=== PATIENT | male | born 1985 | race Caucasian/White ===

== ENCOUNTER 2020-06-06 15:24 | Emergency (ER) | payer MEDICAID, SELFPAY ==
[2020-06-06 15:42] VITALS: BP 119/79; PULSE 89; RESP 16; TEMP 36.8; O2SAT 97; BMI 49.1
--- NOTE | 2020-06-06 17:13 | ED_ITS ---
HPI - Neuro Symptoms/Deficit General Chief Complaint: Neuro Symptoms/Deficit Stated Complaint: withdraw symptoms Time Seen by Provider: 06/06/20 16:28 Source: patient Mode of arrival: ambulatory History of Present Illness HPI Narrative: patient states about 30 hours ago took some heroin. Starting to withdrawal this morning so he took some Suboxone. Dates nausea vomiting shaking general malaise. No fevers or chills. Patient states does not want to be on Suboxone long-term however is feeling not well and came into the ER. Denies falls denies blood in denies chest pain or shortness of breath Onset (ago): hour(s) ( 3) Associated symptoms: malaise and nausea/vomiting Related Data Previous Rx's Medication Instructions Recorded clonidine HCl 0.1 mg PO Q8H #10 tab 06/06/20 ondansetron 4 mg PO Q8H PRN 5 Days #15 tab 06/06/20 Allergies Allergy/AdvReac Type Severity Reaction Status Date / Time mayonnaise [MAYONNAISE] Allergy Intermediate THROAT AND Verified 06/06/20 16:05 TONGUE ITCH quetiapine [From SEROQUEL] Allergy Intermediate DYSTONIA Verified 06/06/20 16:05 cat dander [CATS] Allergy Unknown WATERY Verified 06/06/20 16:05 EYES, SNEEZING dog dander [DOG] Allergy Unknown UNKNOWN Verified 06/06/20 16:05 paroxetine [From PAXIL] Allergy Unknown FLU LIKE Verified 06/06/20 16:05 SYMPTOMS penicillin V Allergy Unknown Unknown Verified 06/06/20 16:05 Penicillins [PENICILLINS] Allergy Unknown SWELLING Verified 06/06/20 16:05 SEAFOOD Allergy Severe DIFFICULTY Uncoded 05/21/20 15:30 BREATHING Review of Systems Review of Systems: Constitutional : No Weight loss, No Fever, No Chills, No Night Sweats, No Fatigue, No Malaise ENT/Mouth : No Hearing loss, No Ear Pain, No Nasal Congestion, No Sinus Pain, No Hoarseness, No sore throat, No Rhinorrhea, No Swallowing Difficulty Eyes: No Eye Pain, No Swelling, No Redness, No Foreign Body, No Discharge, No Vision Changes Cardiovascular : No Chest Pain, No SOB, No Dyspnea on Exertion, No Orthopnea, No Edema, No Palpitations Respiratory : No Cough, No Sputum, No Wheezing, No Smoke Exposure, No Dyspnea Gastrointestinal : Positive Nausea, No Vomiting, No Diarrhea, No Constipation, No abdominal Pain, No Hematochezia, No Melena Genitourinary : no irregular bleeding, No Dysuria, No Urinary Frequency, No Hematuria, No Urinary Incontinence, No Urgency, No Flank Pain, No Urinary Flow Changes, No Hesitancy Musculoskeletal : No joint pain, No Myalgias, No Joint Swelling Skin : No Skin Lesions, No rash Neuro : Positve Weakness, No Numbness, No Paresthesias, No Loss of Consciousness, No Dizziness, No Headache Psych : No Anxiety/Panic, No Depression, No SI/HI/AH/VH, No Social Issues, Heme/Lymph: No Bruising, No Bleeding,No Lymphadenopathy Endocrine : No Polyuria, No Polydipsia, No Temperature Intolerance Yes all other systems are reviewed and are negative [facility] Past Medical History Attestation statement: The following information was validated with the patient. Medical History ACL (anterior cruciate ligament) rupture Asthma Hepatitis C Hepatitis C antibody positive in blood Knee cartilage, torn, right Substance abuse withdrawal Social History Social History Advance Directives: No Advance Directives Information Provided: Yes Physical Exam Vital Signs and I&O and Narrative: Vital Signs and I&O: Vital Signs Temp 98.3 F 06/06/20 15:42 Pulse 76 06/06/20 17:22 Resp 16 06/06/20 15:42 BP 126/76 06/06/20 17:22 Pulse Ox 97 06/06/20 15:42 Intake & Output 06/06/20 06/06/20 06/07/20 06:59 18:59 06:59 Weight 160 kg Body Mass Index 49.1 reviewed Const: Other: Appearance: Alert. Oriented X3. No acute distress. Eyes: Pupils equal, round and reactive to light. ENT: Pharynx normal. Neck: Normal inspection. Neck supple. CVS: Normal heart rate and rhythm. Pulses normal. Respiratory: No respiratory distress. Breath sounds normal. Abdomen: Soft and nontender. Skin: Skin warm and dry. Normal skin color. Normal skin turgor. Extremities: No lower extremity edema. No lower extremity edema. Neuro: Oriented X 3. No motor deficit. No sensory deficit. General: cooperative Course Course Hospital Course: we counseled patient regarding to his Suboxone long-term however patient does not want to be on it. Patient wants symptom management. Reevaluation(s) Reevaluation #1: PATIENT WANTS TO LEAVE. Care team did refer him to Suboxone Clinic. Patient does refuse to have Suboxone here. Will give symptomatic treatment. Discharge home not intoxicated has ride home Time: 18:17 Discharge Plan Discharge Clinical Impression: Withdrawal symptoms, drug or narcotic Patient Disposition: Home, Self-Care Instructions: Opioid Withdrawal (ED), Narcotic Withdrawal (ED) Additional Instructions: Thank you for visiting the emergency department today. If your symptoms worsen or do not resolve completely please return to the emergency department immediately or call 911. if he have any questions please call your primary care physician Prescriptions: New clonidine HCl 0.2 mg tablet 0.1 mg PO Q8H Qty: 10 RF: 0 ondansetron 4 mg tablet,disintegrating 4 mg PO Q8H PRN (Reason: nausea and vomiting) 5 Days Qty: 15 RF: 0 Referrals: Molly Ford MD [Primary Care Provider] - 2 days Interventions: ED Discharge Assessment Last Done: 06/06/20 18:27 Discharge Date/Time: 06/06/20 18:27
[2020-06-06] MEDS: 0.9 % Sodium Chloride 1,000 ML 999 ML IVCONT (17:21)
[2020-06-06 17:22] VITALS: BP 126/76; PULSE 76
[2020-06-06] MEDS: cloNIDine HCL 0.2 MG TABLET PO (17:22)
[2020-06-06] MEDS: Ketorolac Tromethamine 30 MG/ML VIAL IM (17:22)
[2020-06-06] MEDS: ondansetron HCL 4 MG/2 ML VIAL IVPUSH (17:22)
--- NOTE | 2020-06-06 17:36 | MHC.CARE ---
CARE team support offered for 34 year old male who presented to ED endorsing withdrawal symptoms after administering suboxone he obtained from a friend. Pt reported that he hadn't used heroin for 24 hrs prior to taking and was in active withdrawal at the time, however pt felt more ill after taking the suboxone and came to the ED for treatment. This pattern chart writer met with pt in ED 18H to discuss his use and hx of MAT/suboxone. Pt reported that he last took suboxone a few months ago and that he has only taken suboxone he brought from others, and has not been connected with an MAT clinic previously. CCC was explained to pt and this pattern chart writer offered to complete a referral for pt, which pt was agreeable to. Pt was provided with information for the clinic including walk-in hrs and phone number. Referral completed on [employer] and ED nurse and provider have been updated.
== END 2020-06-06 18:27 | disposition home or self-care (01) ==
PROVIDERS: Emergency Provider Emergency Medicine; PCP Internal Medicine
DX: F11.23 Opioid dependence with withdrawal (principal); B19.20 Unspecified viral hepatitis C without hepatic coma
CPT/HCPCS: 96361; 96372; 96374; 99283; 99284; J1885; J2405

== ENCOUNTER 2020-07-01 12:34 | Emergency (ER) | payer MEDICAID, SELFPAY ==
[2020-07-01 12:52] VITALS: BP 108/74; PULSE 97; RESP 16; O2SAT 98; BMI 22.2
--- NOTE | 2020-07-01 12:59 | ED.DENTAL ---
HPI - Dental/Oral General Chief complaint: Dental/Oral Stated complaint: dental pain Time Seen by Provider: 07/01/20 12:59 Source: patient Mode of arrival: ambulatory Limitations: no limitations History of Present Illness MD Complaint: tooth pain Teeth map: 1. Decay/ ttp. No induration/ abs Onset (ago): day(s) Severity: moderate Relieving factors: NSAIDs Exacerbating factors: chewing Context: history of dental caries Treatment prior to arrival: none Related Data Previous Rx's Medication Instructions Recorded clonidine HCl 0.1 mg PO Q8H #10 tab 06/06/20 ondansetron 4 mg PO Q8H PRN 5 Days #15 tab 06/06/20 clindamycin HCl 300 mg PO BID 7 Days #14 cap 07/01/20 ibuprofen 800 mg PO Q8H PRN #30 tab 07/01/20 Allergies Allergy/AdvReac Type Severity Reaction Status Date / Time mayonnaise [MAYONNAISE] Allergy Intermediate THROAT AND Verified 06/06/20 16:05 TONGUE ITCH quetiapine [From SEROQUEL] Allergy Intermediate DYSTONIA Verified 06/06/20 16:05 cat dander [CATS] Allergy Unknown WATERY Verified 06/06/20 16:05 EYES, SNEEZING dog dander [DOG] Allergy Unknown UNKNOWN Verified 06/06/20 16:05 paroxetine [From PAXIL] Allergy Unknown FLU LIKE Verified 06/06/20 16:05 SYMPTOMS penicillin V Allergy Unknown Unknown Verified 06/06/20 16:05 Penicillins [PENICILLINS] Allergy Unknown SWELLING Verified 06/06/20 16:05 SEAFOOD Allergy Severe DIFFICULTY Uncoded 05/21/20 15:30 BREATHING Review of Systems Review of Systems: Constitutional: No Weight loss, No Fever, No Chills, No Night Sweats, No Fatigue, No Malaise ENT/Mouth: No Hearing loss, No Ear Pain, No Nasal Congestion, No Sinus Pain, No Hoarseness, No sore throat, No Rhinorrhea, No Swallowing Difficulty Eyes: No Eye Pain, No Swelling, No Redness, No Foreign Body, No Discharge, No Vision Changes Cardiovascular: No Chest Pain, No SOB, No Dyspnea on Exertion, No Orthopnea, No Edema, No Palpitations Respiratory: No Cough, No Sputum, No Wheezing, No Smoke Exposure, No Dyspnea Gastrointestinal: No Nausea, No Vomiting, No Diarrhea, No Constipation, No abdominal Pain, No Hematochezia, No Melena Genitourinary: no irregular bleeding, No Dysuria, No Urinary Frequency, No Hematuria, No Urinary Incontinence, No Urgency, No Flank Pain, No Urinary Flow Changes, No Hesitancy Musculoskeletal: No joint pain, No Myalgias, No Joint Swelling Skin: No Skin Lesions, No rash Neuro: No Weakness, No Numbness, No Paresthesias, No Loss of Consciousness, No Dizziness, No Headache Psych: No Social Issues Heme/Lymph: No Bruising, No Bleeding,No Lymphadenopathy Endocrine: No Polyuria, No Polydipsia, No Temperature Intolerance Yes all other systems are reviewed and are negative [facility] Past Medical History Attestation statement: The following information was validated with the patient. Medical History ACL (anterior cruciate ligament) rupture Asthma Hepatitis C Hepatitis C antibody positive in blood Knee cartilage, torn, right Substance abuse withdrawal Social History Social History Advance Directives: No Advance Directives Information Provided: No Physical Exam Vital Signs: Vital Signs: Vital Signs Pulse Resp BP Pulse Ox 07/01/20 12:52 97 16 108/74 98 Body Mass Index 22.2 reviewed Const: General: cooperative and healthy appearing; No acute distress or intoxicated appearing Nutritional Appearance: average body habitus Orientation/consciousness: patient oriented x3 HENMT: Head: Yes normal to inspection Ears: hearing grossly normal bilaterally Teeth and gingiva: caries and poor dentition Eyes: General: appearance normal, both eyes and all related structures Visual Rahman: normal visual rahman by confrontation Neck: Neck: Yes normal visual inspection and No tender Thyroid: Thyroid normal Chest: Chest palpation & inspection: normal inspection of the chest Resp: Effort & Inspection: normal respiratory effort Cardio: Jugular venous distension: no JVD Skin: General skin exam: no rashes or lesions noted Neuro: General: patient oriented x3 Extrem: General: Yes normal to inspection Discharge Plan Discharge Clinical Impression: Dental caries, Toothache Patient Disposition: Home, Self-Care Instructions: Toothache (ED) Prescriptions: New clindamycin HCl 300 mg capsule 300 mg PO BID 7 Days Qty: 14 RF: 0 ibuprofen 800 mg tablet 800 mg PO Q8H PRN (Reason: pain) Qty: 30 RF: 0 No Action clonidine HCl 0.2 mg tablet 0.1 mg PO Q8H Qty: 10 RF: 0 ondansetron 4 mg tablet,disintegrating 4 mg PO Q8H PRN (Reason: nausea and vomiting) 5 Days Qty: 15 RF: 0 Referrals: Physician,Unknown [Primary Care Provider] - 2 days (Dental - ) Interventions: ED Discharge Assessment Last Done: 07/01/20 13:09 Discharge Date/Time: 07/01/20 13:09
== END 2020-07-01 13:09 | disposition home or self-care (01) ==
LOC: HO.ED 13:06
PROVIDERS: Emergency Provider Emergency Medicine
DX: K02.9 Dental caries, unspecified (principal)
CPT/HCPCS: 99283

== ENCOUNTER 2020-07-27 13:35 | Emergency (ER) | payer MEDICAID, SELFPAY ==
--- NOTE | 2020-07-27 13:38 | ECG_ITS ---
Test Reason : CP Blood Pressure : / mmHG Vent. Rate : 083 BPM Atrial Rate : 083 BPM P-R Int : 162 ms QRS Dur : 072 ms QT Int : 374 ms P-R-T Axes : 064 049 043 degrees QTc Int : 439 ms Normal sinus rhythm Normal ECG When compared with ECG of 04-DEC-2019 23:07, No significant change was found Referred By: Generic ED Physician Electronically Signed By:JENNIFER REGALADO MD
[2020-07-27 14:19] VITALS: BP 114/70; PULSE 87; RESP 15; TEMP 36.8; O2SAT 98; BMI 23.6
[2020-07-27 14:23] VITALS: BP 114/70; PULSE 80; RESP 15; O2SAT 98
--- NOTE | 2020-07-27 14:23 | XR_ITS ---
EXAMINATION: XR CHEST CLINICAL INFORMATION: Chest pain. COMPARISON: None TECHNIQUE: 2 views of the chest were obtained. FINDINGS: No significant abnormality is noted involving the heart, lungs, mediastinum, bony thorax or soft tissues. XR/XR chest 2V IMPRESSION: Unremarkable chest exam.
[2020-07-27 14:35] LABS: MANUAL DIFF FLAG NO
--- NOTE | 2020-07-27 14:39 | ED_ITS ---
HPI - Chest Pain General Chief Complaint: Chest Pain <DUC Manning Last Filed: 07/27/20 14:46> Stated Complaint: CHEST PAIN <DUC Manning Last Filed: 07/27/20 14:46> Time Seen by Provider: 07/27/20 14:07 <Shauna Hanna NP - Last Filed: 07/27/20 14:46> Source: patient <Shauna Hanna NP - Last Filed: 07/27/20 14:46> Mode of arrival: ambulatory <DUC Manning Last Filed: 07/27/20 14:46> Limitations: no limitations <DUC Manning Last Filed: 07/27/20 14:46> History of Present Illness HPI narrative: 35-year-old male with a past medical history of asthma, substance abuse, Hepatitis-C here with intermittent left-sided chest pain x4 days. Patient tells me that the pain occurs at rest and sometimes radiates to his left arm. It is associated with anxiety. Denies any associated shortness of breath, dizziness, nausea, vomiting, diaphoresis. He denies any fevers, chills, cough, body aches. He tells me he last used heroin yesterday. He denies IV drug abuse and only snorts heroin. He was discharged from detox 4 days ago and is currently on a methadone taper. Denies cocaine use. Pain is not worsened with deep breathing or movement or coughing or inspiration or position changes. <Shauna Hanna NP - Last Filed: 07/27/20 14:46> MD complaint: chest discomfort <DUC Manning Last Filed: 07/27/20 14:46> Onset (ago): day(s) <DUC Manning Last Filed: 07/27/20 14:46> Timing of current episode: episodic <DUC Manning Last Filed: 07/27/20 14:46> Onset: during rest <DUC Manning Last Filed: 07/27/20 14:46> Pain location: left chest <DUC Manning Last Filed: 07/27/20 14:46> Pain radiation: left arm <Shauna Hanna NP - Last Filed: 07/27/20 14:46> Severity: mild <Shauna Hanna NP - Last Filed: 07/27/20 14:46> Quality: tightness <Shauna Hanna NP - Last Filed: 07/27/20 14:46> Relieving factors: nothing <Shauna Hanna NP - Last Filed: 07/27/20 14:46> Exacerbating factors: nothing <Shauna Hanna NP - Last Filed: 07/27/20 14:46> Treatment prior to arrival: none <Shauna Hanna NP - Last Filed: 07/27/20 14:46> Related Data Home Medications: Previous Rx's Medication Instructions Recorded clonidine HCl 0.1 mg PO Q8H #10 tab 06/06/20 ondansetron 4 mg PO Q8H PRN 5 Days #15 tab 06/06/20 clindamycin HCl 300 mg PO BID 7 Days #14 cap 07/01/20 ibuprofen 800 mg PO Q8H PRN #30 tab 07/01/20 <Shauna Hanna NP - Last Filed: 07/27/20 14:46> Allergies/Adverse Reactions: Allergies Allergy/AdvReac Type Severity Reaction Status Date / Time mayonnaise [MAYONNAISE] Allergy Intermediate THROAT AND Verified 06/06/20 16:05 TONGUE ITCH quetiapine [From SEROQUEL] Allergy Intermediate DYSTONIA Verified 06/06/20 16:05 cat dander [CATS] Allergy Unknown WATERY Verified 06/06/20 16:05 EYES, SNEEZING dog dander [DOG] Allergy Unknown UNKNOWN Verified 06/06/20 16:05 paroxetine [From PAXIL] Allergy Unknown FLU LIKE Verified 06/06/20 16:05 SYMPTOMS penicillin V Allergy Unknown Unknown Verified 06/06/20 16:05 Penicillins [PENICILLINS] Allergy Unknown SWELLING Verified 06/06/20 16:05 SEAFOOD Allergy Severe DIFFICULTY Uncoded 05/21/20 15:30 BREATHING <Shauna Hanna NP - Last Filed: 07/27/20 14:46> Review of Systems Review of Systems: Yes all other systems are reviewed and are negative <Shauna Hanna NP - Last Filed: 07/27/20 14:46> Constitutional: Constitutional: Reports no additional constitutional complaints, Denies body ache(s), Denies chills, Denies fever(s), Denies headache(s) and Denies weakness <Shauna Hanna NP - Last Filed: 07/27/20 14:46> Eyes: Eyes: Reports no additional eye complaints and Denies change in vision <Shauna Hanna PUBLIC HEALTH SANITARIAN - Last Filed: 07/27/20 14:46> ENT: Reports system reviewed and no additional complaints, except as documented, Denies dizziness, Denies headache(s), Denies nasal congestion, Denies nasal discharge and Denies neck pain <Shauna Hanna NP - Last Filed: 07/27/20 14:46> Cardiovascular: Cardiovascular: Reports no additional cardiovascular complaints, Reports chest pain, Denies leg edema and Denies dyspnea <Shauna Hanna NP - Last Filed: 07/27/20 14:46> Respiratory: Respiratory: Reports no additional respiratory complaints, Denies cough and Denies dyspnea <Shauna Hanna NP - Last Filed: 07/27/20 14:46> Gastrointestinal: Gastrointestinal: Reports no additional gastrointestinal complaints, Denies abdominal pain, Denies diarrhea, Denies nausea and Denies vomiting <Shauna Hanna NP - Last Filed: 07/27/20 14:46> Genitourinary: Genitourinary: Denies urinary incontinence <Shauna Hanna NP - Last Filed: 07/27/20 14:46> Musculoskeletal: Musculoskeletal: Reports no additional musculoskeletal complaints, Denies back pain, Denies arthralgias, Denies joint swelling, Denies neck pain, Denies numbness and Denies tingling <Shauna Hanna NP - Last Filed: 07/27/20 14:46> Integumentary/Breasts: Skin/Breast: Reports system reviewed and no additional complaints, except as docu and Denies rash <Shauna Hanna NP - Last Filed: 07/27/20 14:46> Neurologic: Reports system reviewed and no additional complaints, except as documented, Denies Abnormal speech present, Denies dizziness, Denies headache(s), Denies numbness, Denies tingling and Denies weakness <Shauna Hanna NP - Last Filed: 07/27/20 14:46> [facility] Past Medical History Attestation statement: The following information was validated with the patient. <Shauna Hanna NP - Last Filed: 07/27/20 14:46> Source: obtained from family and nursing notes reviewed <Shauna Hanna NP - Last Filed: 07/27/20 14:46> Medical History: Medical History ACL (anterior cruciate ligament) rupture Asthma Hepatitis C Hepatitis C antibody positive in blood Knee cartilage, torn, right Substance abuse withdrawal <Shauna Hanna NP - Last Filed: 07/27/20 14:46> Social History Social History: Social History Alcohol intake: never Smoking Status: Current every day smoker Use of substances other than those prescribed or required for medical reasons: Yes Substance Use Type: Heroin Advance Directives: No Advance Directives Information Provided: No <Shauna Hanna NP - Last Filed: 07/27/20 14:46> Physical Exam Vital Signs: Vital Signs: Last Vital Signs Temp 98.3 F 07/27/20 14:19 Pulse 80 07/27/20 14:23 Resp 15 07/27/20 14:23 BP 114/70 07/27/20 14:23 Pulse Ox 98 07/27/20 14:23 Body Mass Index 23.6 <Shauna Hanna NP - Last Filed: 07/27/20 14:46> Vital Signs: Last Vital Signs Temp 98.3 F 07/27/20 14:19 Pulse 80 07/27/20 14:23 Resp 15 07/27/20 14:23 BP 114/70 07/27/20 14:23 Pulse Ox 98 07/27/20 14:23 Body Mass Index 23.6 <Jeronimo Potts MD - Last Filed: 07/27/20 15:21> Const: General: cooperative, healthy appearing, comfortable and no acute distress <Shauna Hanna NP - Last Filed: 07/27/20 14:46> Orientation/consciousness: patient oriented x3 <Shauna Hanna NP - Last F iled: 07/27/20 14:46> Limitations: no limitations <Shauna Hanna NP - Last Filed: 07/27/20 14:46> HENMT: Head: Yes normal to inspection <Shauna Hanna NP - Last Filed: 07/27/20 14:46> Ears: hearing grossly normal bilaterally <Shauna Hanna NP - Last Filed: 07/27/20 14:46> General nose exam: Normal external nose present <Shauna Hanna NP - Last Filed: 07/27/20 14:46> Face and sinus: Yes normal facial exam <Shauna Hanna NP - Last Filed: 07/27/20 14:46> Mouth: Normal oral and palatal mucosa present <Shauna Hanna NP - Last Filed: 07/27/20 14:46> Throat: Yes posterior oropharynx normal <Shauna Hanna NP - Last Filed: 07/27/20 14:46> Eyes: General: appearance normal, both eyes and all related structures <Shauna Hanna NP - Last Filed: 07/27/20 14:46> Pupils: Equal, round and reactive pupils present <Shauna Hanna NP - Last Filed: 07/27/20 14:46> Neck: Neck: Yes normal visual inspection <Shauna Hanna NP - Last Filed: 07/27/20 14:46> Chest: Other: no chest pain at time of exam <Shauna Hanna NP - Last Filed: 07/27/20 14:46> Chest palpation & inspection: normal inspection of the chest <Shauna Hanna NP - Last Filed: 07/27/20 14:46> Resp: Effort & Inspection: normal respiratory effort <Shauna Hanna NP - Last Filed: 07/27/20 14:46> Auscultation: clear to auscultation bilaterally <Shauna Hanna NP - Last Filed: 07/27/20 14:46> Cardio: Rate: regular rate <Shauna Hanna NP - Last Filed: 07/27/20 14:46> Rhythm: regular rhythm <Shauna Hanna NP - Last Filed: 07/27/20 14:46> Peripheral pulses: Peripheral pulses 2+ throughout <Shauna Hanna NP - Last Filed: 07/27/20 14:46> GI: Inspection: Yes normal to inspection <Shauna Hanna NP - Last F iled: 07/27/20 14:46> Palpation (GI): Soft to palpation and nontender <Shauna Hanna NP - Last Filed: 07/27/20 14:46> Auscultation: normal bowel sounds <Shauna Hanna NP - Last Filed: 07/06 11/21 14:46> Back/Spine/Pelvis: Thoracic/Lumbar Spine: thoracic and lumbar spine normal to inspection <Shauna Hanna NP - Last Filed: 07/27/20 14:46> Skin: General skin exam: no rashes or lesions noted <Shauna Hanna NP - Last Filed: 07/27/20 14:46> Neuro: General: patient oriented x3, no focal motor deficits and normal sensation to monofilament <Shauna Hanna PUBLIC HEALTH SANITARIAN - Last Filed: 07/27/20 14:46> Cranial nerves: Yes Equal, round and reactive pupils present <Shauna Pool i PUBLIC HEALTH SANITARIAN - Last Filed: 07/27/20 14:46> Cognition (Neuro): normal cognition <Shauna Hanna PUBLIC HEALTH SANITARIAN - Last Filed: 07/27/20 14:46> Speech: No Abnormal speech present <Shauna Hanna NP - Last Filed: 07/27/20 14:46> Gait exam (Neuro): Normal gait present <Shauna Hanna PUBLIC HEALTH SANITARIAN - Last Filed: 07/27/20 14:46> Motor exam (neuro): 5/5 motor strength present throughout <Shauna Hanna PUBLIC HEALTH SANITARIAN - Last Filed: 07/27/20 14:46> Extrem: Other: no pedal swelling or tenderness or calf pain or tenderness <Shauna Hanna NP - Last Filed: 07/27/20 14:46> General: Yes normal to inspection <Shauna Hanna NP - Last Filed: 07/27/20 14:46> Course Course Course Narrative: 35-year-old male here with intermittent chest pain which occurs at rest with associated diarrhea for the last 4 days. On arrival to the ER he has no complaints of chest pain. He denies any other associated symptoms. His exam is benign. He is afebrile with normal vital signs. Will check EKG, chest x-ray, labs. <Shauna Hanna NP - Last Filed: 07/27/20 14:46> I have discussed the case and management with the ANASTASIA <Jeronimo Potts MD - Last Filed: 07/27/20 15:21> MDM - Chest Pain MDM Narrative Medical decision making narrative: pneumonia, ACS, pneumothorax, anxiety, PE, viral syndrome, chest wall strain <Shauna Hanna NP - Last Filed: 07/27/20 14:46> Medical Records Data Attestation: I reviewed the patient's medical records. <Shauna Hanna NP - Last Filed: 07/27/20 14:46> Lab Data Attestation: I reviewed the patient's lab results. <Shauna Hanna NP - Last Filed: 07/27/20 14:46> Result diagrams: : 07/27/20 14:30 07/27/20 14:30 <Shauna Hanna NP - Last Filed: 07/27/20 14:46> Labs: Lab Results 07/27/20 07/27/20 07/27/20 Range/Units 14:30 14:30 14:30 WBC 8.1 (4.8-10.8) X10*3/uL RBC 4.83 (4.60-5.80) X10*6/uL Hgb 14.4 (14.0-18.0) g/dl Hct 43.0 (42-52) % MCV 89.0 (80-98) fL MCH 29.8 (27.0-33.0) pg MCHC 33.5 (31.0-36.0) g/dl RDW 11.8 (11.0-16.0) % Plt Count 137 L (160-400) X10*3/uL MPV 10.9 (9.4-12.4) fL Immature Gran % (Auto) 0.1 (0.0-0.4) % Neut % (Auto) 71.8 (45-73) % Lymph % (Auto) 18.9 L (20-40) % [place] % (Auto) 6.2 (2-11) % Eos % (Auto) 2.6 (0-4) % Baso % (Auto) 0.4 (0-2) % Lymph # (Auto) 1.5 (1.2-4.9) X10*3/uL [place] # (Auto) 0.5 (0.1-1.2) X10*3/uL Eos # (Auto) 0.2 (0.0-0.4) X10*3/uL Baso # (Auto) 0.0 (0.0-0.2) X10*3/uL Abs Immat Gran (auto) 0.01 (0.00-0.03) X10*3/uL Absolute Neuts (auto) 5.8 (2.0-8.3) X10*3/uL Absolute Nucleated RBC 0.000 (0.0-0.012) X10*3/uL Nucleated RBC % (auto) 0.0 (0.0-0.2) /100WBC Sodium 138 (135-145) mmol/L Potassium 3.9 (3.3-5.1) mmol/l Chloride 104 (96-108) mmol/L Carbon Dioxide 29 (22-29) mmol/L Anion Gap 9 L (12-20) BUN 10 (9-16) mg/dL Creatinine 0.88 (0.5-1.4) mg/dL Estim Creat Clear Calc 120.9 Estimated GFR > 60 Random Glucose 103 (60-115) mg/dL Calcium 8.6 (8.4-10.2) mg/dL Magnesium 2.1 (1.6-2.6) mg/dL Total Bilirubin 0.7 (0.0-1.0) mg/dL Direct Bilirubin 0.4 (0.0-0.5) mg/dL AST 41 H (5-37) U/L ALT 62 H (0-40) U/L Alkaline Phosphatase 64 (39-117) U/L Troponin I High Sens < 3.5 (<3.5-35.0) ng/L Total Protein 5.8 L (6.5-8.0) g/dL Albumin 3.9 (3.5-5.0) g/dL <Shauna Hanna NP - Last Filed: 07/27/20 14:46> Lab Results 07/27/20 07/27/20 07/27/20 Range/Units 14:30 14:30 14:30 WBC 8.1 (4.8-10.8) X10*3/uL RBC 4.83 (4.60-5.80) X10*6/uL Hgb 14.4 (14.0-18.0) g/dl Hct 43.0 (42-52) % MCV 89.0 (80-98) fL MCH 29.8 (27.0-33.0) pg MCHC 33.5 (31.0-36.0) g/dl RDW 11.8 (11.0-16.0) % Plt Count 137 L (160-400) X10*3/uL MPV 10.9 (9.4-12.4) fL Immature Gran % (Auto) 0.1 (0.0-0.4) % Neut % (Auto) 71.8 (45-73) % Lymph % (Auto) 18.9 L (20-40) % [place] % (Auto) 6.2 (2-11) % Eos % (Auto) 2.6 (0-4) % Baso % (Auto) 0.4 (0-2) % Lymph # (Auto) 1.5 (1.2-4.9) X10*3/uL [place] # (Auto) 0.5 (0.1-1.2) X10*3/uL Eos # (Auto) 0.2 (0.0-0.4) X10*3/uL Baso # (Auto) 0.0 (0.0-0.2) X10*3/uL Abs Immat Gran (auto) 0.01 (0.00-0.03) X10*3/uL Absolute Neuts (auto) 5.8 (2.0-8.3) X10*3/uL Absolute Nucleated RBC 0.000 (0.0-0.012) X10*3/uL Nucleated RBC % (auto) 0.0 (0.0-0.2) /100WBC Sodium 138 (135-145) mmol/L Potassium 3.9 (3.3-5.1) mmol/l Chloride 104 (96-108) mmol/L Carbon Dioxide 29 (22-29) mmol/L Anion Gap 9 L (12-20) BUN 10 (9-16) mg/dL Creatinine 0.88 (0.5-1.4) mg/dL Estim Creat Clear Calc 120.9 Estimated GFR > 60 Random Glucose 103 (60-115) mg/dL Calcium 8.6 (8.4-10.2) mg/dL Magnesium 2.1 (1.6-2.6) mg/dL Total Bilirubin 0.7 (0.0-1.0) mg/dL Direct Bilirubin 0.4 (0.0-0.5) mg/dL AST 41 H (5-37) U/L ALT 62 H (0-40) U/L Alkaline Phosphatase 64 (39-117) U/L Troponin I High Sens < 3.5 (<3.5-35.0) ng/L Total Protein 5.8 L (6.5-8.0) g/dL Albumin 3.9 (3.5-5.0) g/dL <Jeronimo Potts MD - Last Filed: 07/27/20 15:21> Imaging Data Chest x-ray: Attestation: I personally reviewed and interpreted this imaging study as follows: <Shauna Hanna NP - Last Filed: 07/27/20 14:46> Radiologist's impression: EXAMINATION: XR CHEST CLINICAL INFORMATION: Chest pain. COMPARISON: None TECHNIQUE: 2 views of the chest were obtained. FINDINGS: No significant abnormality is noted involving the heart, lungs, mediastinum, bony thorax or soft tissues. XR/XR chest 2V IMPRESSION: Unremarkable chest exam. <Shauna Hanna NP - Last Filed: 07/27/20 14:46> ECG Data ECG #1: Attestation: I personally reviewed and interpreted this ECG as follows: <Shauna Hanna NP - Last Filed: 07/27/20 14:46> ECG interpretation date: 07/27/20 <Shauna Hanna NP - Last Filed: 07/27/20 14:46> ECG interpretation time: 14:14 <Shauna Hanna NP - Last Filed: 07/27/20 14:46> Interpretation: normal sinus rhythm with a rate of 83, normal TN, normal QRS, normal QT <Shauna Hanna NP - Last Filed: 07/27/20 14:46> Discharge Plan Discharge Prescriptions: No Action clonidine HCl 0.2 mg tablet 0.1 mg PO Q8H Qty: 10 RF: 0 ondansetron 4 mg tablet,disintegrating 4 mg PO Q8H PRN (Reason: nausea and vomiting) 5 Days Qty: 15 RF: 0 clindamycin HCl 300 mg capsule 300 mg PO BID 7 Days Qty: 14 RF: 0 ibuprofen 800 mg tablet 800 mg PO Q8H PRN (Reason: pain) Qty: 30 RF: 0 <Shauna Hanna NP - Last Filed: 07/27/20 14:46>
[2020-07-27 14:45] LABS: Basophils Percent Auto 0.4 % (0-2); Eosinophils Absolute Auto 0.2 X10*3/uL (0.0-0.4); Eosinophils Percent Auto 2.6 % (0-4); Hemoglobin 14.4 g/dl (14.0-18.0); Imm Gran Abs Auto 0.01 X10*3/uL (0.00-0.03); Imm Gran Pct Auto 0.1 % (0.0-0.4); Lymphocytes Absolute Auto 1.5 X10*3/uL (1.2-4.9); Lymphocytes Percent Auto 18.9 % (20-40); Mean Corpuscular HGB Conc 33.5 g/dl (31.0-36.0); Mean Corpuscular Hemoglobin 29.8 pg (27.0-33.0); Mean Platelet Volume 10.9 fL (9.4-12.4); Monocytes Absolute Auto 0.5 X10*3/uL (0.1-1.2); Monocytes Percent Auto 6.2 % (2-11); Neutrophils Absolute Auto 5.8 X10*3/uL (2.0-8.3); Neutrophils Percent Auto 71.8 % (45-73); Platelet Count 137 X10*3/uL (160-400); Red Blood Count 4.83 X10*6/uL (4.60-5.80); Red Cell Distribution Width 11.8 % (11.0-16.0); White Blood Count 8.1 X10*3/uL (4.8-10.8)
--- NOTE | 2020-07-27 14:51 | PC.NURSE ---
Patient reports chest pain on and off for the last couple of days which radiates down left arm. Reports he recently ended detox. Admits to sniffing one bag of heroin yesterday. Respirations regular and even. Skin PWD. EKG obtained at bedside- NSR. Placed on radiation monitor. IV established and labs drawn. Patient tolerated well. Patient reports some anxiety and questions if this is contributing to chest pain. Awaiting results.
[2020-07-27 15:09] LABS: Troponin-I High Sensitivity < 3.5 ng/L (<3.5-35.0)
[2020-07-27 15:12] LABS: Alanine Aminotransferase 62 U/L (0-40); Albumin Level 3.9 g/dL (3.5-5.0); Alkaline Phosphatase 64 U/L (39-117); Anion Gap 9 (12-20); Aspartate Amino Transferase 41 U/L (5-37); Bilirubin Direct 0.4 mg/dL (0.0-0.5); Bilirubin Total 0.7 mg/dL (0.0-1.0); Blood Urea Nitrogen 10 mg/dL (9-16); Calcium 8.6 mg/dL (8.4-10.2); Carbon Dioxide 29 mmol/L (22-29); Chloride 104 mmol/L (96-108); Creatinine Clr Calc Pharmacy 120.9; Estimated Glomerular Filt Rate > 60; Glucose Random 103 mg/dL (60-115); Magnesium 2.1 mg/dL (1.6-2.6); Potassium 3.9 mmol/l (3.3-5.1); Sodium 138 mmol/L (135-145); Total Protein 5.8 g/dL (6.5-8.0)
--- NOTE | 2020-07-27 15:27 | ED.CHESTPAIN ---
HPI - Chest Pain General Chief Complaint: Chest Pain Stated Complaint: CHEST PAIN Time Seen by Provider: 07/27/20 14:07 Source: patient Mode of arrival: ambulatory Limitations: no limitations History of Present Illness MD complaint: chest pain Onset (ago): day(s) Timing of current episode: episodic Pain location: left chest Quality: tightness Relieving factors: nothing Exacerbating factors: nothing Related Data Previous Rx's Medication Instructions Recorded clonidine HCl 0.1 mg PO Q8H #10 tab 06/06/20 ondansetron 4 mg PO Q8H PRN 5 Days #15 tab 06/06/20 clindamycin HCl 300 mg PO BID 7 Days #14 cap 07/01/20 ibuprofen 800 mg PO Q8H PRN #30 tab 07/01/20 Allergies Allergy/AdvReac Type Severity Reaction Status Date / Time mayonnaise [MAYONNAISE] Allergy Intermediate THROAT AND Verified 06/06/20 16:05 TONGUE ITCH quetiapine [From SEROQUEL] Allergy Intermediate DYSTONIA Verified 06/06/20 16:05 cat dander [CATS] Allergy Unknown WATERY Verified 06/06/20 16:05 EYES, SNEEZING dog dander [DOG] Allergy Unknown UNKNOWN Verified 06/06/20 16:05 paroxetine [From PAXIL] Allergy Unknown FLU LIKE Verified 06/06/20 16:05 SYMPTOMS penicillin V Allergy Unknown Unknown Verified 06/06/20 16:05 Penicillins [PENICILLINS] Allergy Unknown SWELLING Verified 06/06/20 16:05 SEAFOOD Allergy Severe DIFFICULTY Uncoded 05/21/20 15:30 BREATHING Review of Systems Constitutional: Constitutional: Denies headache(s) and Denies weakness ENT: Denies dizziness and Denies headache(s) Musculoskeletal: Musculoskeletal: Denies numbness and Denies tingling Neurologic: Reports system reviewed and no additional complaints, except as documented, Denies Abnormal speech present, Denies dizziness, Denies headache(s), Denies numbness, Denies tingling and Denies weakness PMFSH Past Medical History Medical History ACL (anterior cruciate ligament) rupture Asthma Hepatitis C Hepatitis C antibody positive in blood Knee cartilage, torn, right Substance abuse withdrawal Social History Social History Alcohol intake: never Smoking Status: Current every day smoker Use of substances other than those prescribed or required for medical reasons: Yes Substance Use Type: Heroin Advance Directives: No Advance Directives Information Provided: No Physical Exam Vital Signs: Vital Signs: Last Vital Signs Temp 98.3 F 07/27/20 14:19 Pulse 80 07/27/20 14:23 Resp 15 07/27/20 14:23 BP 114/70 07/27/20 14:23 Pulse Ox 98 07/27/20 14:23 Body Mass Index 23.6 Neuro: Speech: No Abnormal speech present MDM - Chest Pain Lab Data Result diagrams: 07/27/20 14:30 07/27/20 14:30 Labs: Lab Results 07/27/20 07/27/20 07/27/20 Range/Units 14:30 14:30 14:30 WBC 8.1 (4.8-10.8) X10*3/uL RBC 4.83 (4.60-5.80) X10*6/uL Hgb 14.4 (14.0-18.0) g/dl Hct 43.0 (42-52) % MCV 89.0 (80-98) fL MCH 29.8 (27.0-33.0) pg MCHC 33.5 (31.0-36.0) g/dl RDW 11.8 (11.0-16.0) % Plt Count 137 L (160-400) X10*3/uL MPV 10.9 (9.4-12.4) fL Immature Gran % (Auto) 0.1 (0.0-0.4) % Neut % (Auto) 71.8 (45-73) % Lymph % (Auto) 18.9 L (20-40) % [place] % (Auto) 6.2 (2-11) % Eos % (Auto) 2.6 (0-4) % Baso % (Auto) 0.4 (0-2) % Lymph # (Auto) 1.5 (1.2-4.9) X10*3/uL [place] # (Auto) 0.5 (0.1-1.2) X10*3/uL Eos # (Auto) 0.2 (0.0-0.4) X10*3/uL Baso # (Auto) 0.0 (0.0-0.2) X10*3/uL Abs Immat Gran (auto) 0.01 (0.00-0.03) X10*3/uL Absolute Neuts (auto) 5.8 (2.0-8.3) X10*3/uL Absolute Nucleated RBC 0.000 (0.0-0.012) X10*3/uL Nucleated RBC % (auto) 0.0 (0.0-0.2) /100WBC Sodium 138 (135-145) mmol/L Potassium 3.9 (3.3-5.1) mmol/l Chloride 104 (96-108) mmol/L Carbon Dioxide 29 (22-29) mmol/L Anion Gap 9 L (12-20) BUN 10 (9-16) mg/dL Creatinine 0.88 (0.5-1.4) mg/dL Estim Creat Clear Calc 120.9 Estimated GFR > 60 Random Glucose 103 (60-115) mg/dL Calcium 8.6 (8.4-10.2) mg/dL Magnesium 2.1 (1.6-2.6) mg/dL Total Bilirubin 0.7 (0.0-1.0) mg/dL Direct Bilirubin 0.4 (0.0-0.5) mg/dL AST 41 H (5-37) U/L ALT 62 H (0-40) U/L Alkaline Phosphatase 64 (39-117) U/L Troponin I High Sens < 3.5 (<3.5-35.0) ng/L Total Protein 5.8 L (6.5-8.0) g/dL Albumin 3.9 (3.5-5.0) g/dL Discharge Plan Discharge Clinical Impression: Atypical chest pain, Anxiety Patient Disposition: Home, Self-Care Instructions: Anxiety (ED), Chest Wall Pain (ED) Prescriptions: No Action clonidine HCl 0.2 mg tablet 0.1 mg PO Q8H Qty: 10 RF: 0 ondansetron 4 mg tablet,disintegrating 4 mg PO Q8H PRN (Reason: nausea and vomiting) 5 Days Qty: 15 RF: 0 clindamycin HCl 300 mg capsule 300 mg PO BID 7 Days Qty: 14 RF: 0 ibuprofen 800 mg tablet 800 mg PO Q8H PRN (Reason: pain) Qty: 30 RF: 0 Referrals: Molly Ford MD [Primary Care Provider] - 2 days
--- NOTE | 2020-07-27 15:31 | ED_ITS ---
HPI - Chest Pain General Chief Complaint: Chest Pain Stated Complaint: CHEST PAIN Time Seen by Provider: 07/27/20 14:07 Source: patient Mode of arrival: ambulatory Limitations: no limitations History of Present Illness Pain location: left chest Quality: tightness Relieving factors: nothing Exacerbating factors: nothing Related Data Home Medications Medication Instructions Recorded Confirmed methadone 10 mg tablet 87 mg PO DAILY 05/25/21 05/25/21 Previous Rx's Medication Instructions Recorded clonidine HCl 0.2 mg tablet 0.1 mg PO Q8H #10 tab 06/06/20 ibuprofen 800 mg tablet 800 mg PO Q8H PRN #30 tab 07/01/20 albuterol sulfate 90 mcg/actuation 2 puff INHALATION QID PRN #6.7 g 06/04/21 aerosol inhaler benztropine 0.5 mg tablet 0.5 mg PO TID PRN #90 tab 06/04/21 haloperidol 5 mg tablet 5 mg PO TID PRN #90 tab 06/04/21 lithium carbonate 300 mg 600 mg PO BEDTIME 30 Days #60 tab 06/04/21 tablet,extended release lithium carbonate 450 mg 450 mg PO DAILY 30 Days #30 tab 06/04/21 tablet,extended release olanzapine 10 mg tablet 10 mg PO BEDTIME #30 tab 06/04/21 oxcarbazepine 150 mg tablet 150 mg PO BID 30 Days #60 tab 06/04/21 azithromycin 250 mg tablet 250 mg PO DAILY 4 Days #4 tab 10/30/21 ibuprofen 600 mg tablet 600 mg PO Q6H PRN #30 tab 10/30/21 Allergies Allergy/AdvReac Type Severity Reaction Status Date / Time mayonnaise [MAYONNAISE] Allergy Intermediate THROAT AND Verified 10/06/21 09:03 TONGUE ITCH quetiapine [From SEROQUEL] Allergy Intermediate DYSTONIA Verified 10/06/21 09:03 cat dander [CATS] Allergy Unknown WATERY Verified 10/06/21 09:03 EYES, SNEEZING dog dander [DOG] Allergy Unknown UNKNOWN Verified 10/06/21 09:03 paroxetine [From PAXIL] Allergy Unknown FLU LIKE Verified 10/06/21 09:03 SYMPTOMS penicillin V Allergy Unknown Unknown Verified 10/06/21 09:03 Penicillins [PENICILLINS] Allergy Unknown SWELLING Verified 10/06/21 09:03 SEAFOOD Allergy Severe DIFFICULTY Uncoded 05/12/21 00:16 BREATHING Review of Systems Constitutional: Constitutional: Denies headache(s) and Denies weakness ENT: Denies dizziness and Denies headache(s) Musculoskeletal: Musculoskeletal: Denies numbness and Denies tingling Neurologic: Reports system reviewed and no additional complaints, except as documented, Denies Abnormal speech present, Denies dizziness, Denies headache(s), Denies numbness, Denies tingling and Denies weakness [facility] Past Medical History Medical History ACL (anterior cruciate ligament) rupture Asthma Hepatitis C Hepatitis C antibody positive in blood Knee cartilage, torn, right Substance abuse withdrawal Social History Social History Household Members: Family Household Members Other:: 3 Housing: House Do you presently have visiting nurse or other home services: No Unable to assess alcohol history related to: Unknown Alcohol intake: current Alcohol intake frequency: a few times a month Alcohol type: beer and hard liquor Patient Tobacco Use Status: Current everyday Tobacco user Tobacco use type: Cigarette Cigarettes Per Day: 10 Years Smoked: 15 e-Cigarette/Vaping Use: Never Used Substance Use Type: Sedatives Advance Directives: No Advance Directives Information Provided: No service: No Sexual orientation: Straight/Heterosexual Physical Exam Vital Signs: Vital Signs: Last Vital Signs Temp 98.3 F 07/27/20 14:19 Pulse 80 07/27/20 14:23 Resp 15 07/27/20 14:23 BP 114/70 07/27/20 14:23 Pulse Ox 98 07/27/20 14:23 BMI result Body Mass Index 23.6 Neuro: Speech: No Abnormal speech present MDM - Chest Pain Lab Data Result diagrams: 07/27/20 14:30 07/27/20 14:30 Labs: Lab Results 07/27/20 07/27/20 07/27/20 Range/Units 14:30 14:30 14:30 WBC 8.1 (4.8-10.8) X10*3/uL RBC 4.83 (4.60-5.80) X10*6/uL Hgb 14.4 (14.0-18.0) g/dl Hct 43.0 (42-52) % MCV 89.0 (80-98) fL MCH 29.8 (27.0-33.0) pg MCHC 33.5 (31.0-36.0) g/dl RDW 11.8 (11.0-16.0) % Plt Count 137 L (160-400) X10*3/uL MPV 10.9 (9.4-12.4) fL Immature Gran % (Auto) 0.1 (0.0-0.4) % Neut % (Auto) 71.8 (45-73) % Lymph % (Auto) 18.9 L (20-40) % [place] % (Auto) 6.2 (2-11) % Eos % (Auto) 2.6 (0-4) % Baso % (Auto) 0.4 (0-2) % Lymph # (Auto) 1.5 (1.2-4.9) X10*3/uL [place] # (Auto) 0.5 (0.1-1.2) X10*3/uL Eos # (Auto) 0.2 (0.0-0.4) X10*3/uL Baso # (Auto) 0.0 (0.0-0.2) X10*3/uL Abs Immat Gran (auto) 0.01 (0.00-0.03) X10*3/uL Absolute Neuts (auto) 5.8 (2.0-8.3) X10*3/uL Absolute Nucleated RBC 0.000 (0.0-0.012) X10*3/uL Nucleated RBC % (auto) 0.0 (0.0-0.2) /100WBC Sodium 138 (135-145) mmol/L Potassium 3.9 (3.3-5.1) mmol/l Chloride 104 (96-108) mmol/L Carbon Dioxide 29 (22-29) mmol/L Anion Gap 9 L (12-20) BUN 10 (9-16) mg/dL Creatinine 0.88 (0.5-1.4) mg/dL Estim Creat Clear Calc 120.9 Estimated GFR > 60 Random Glucose 103 (60-115) mg/dL Calcium 8.6 (8.4-10.2) mg/dL Magnesium 2.1 (1.6-2.6) mg/dL Total Bilirubin 0.7 (0.0-1.0) mg/dL Direct Bilirubin 0.4 (0.0-0.5) mg/dL AST 41 H (5-37) U/L ALT 62 H (0-40) U/L Alkaline Phosphatase 64 (39-117) U/L Troponin I High Sens < 3.5 (<3.5-35.0) ng/L Total Protein 5.8 L (6.5-8.0) g/dL Albumin 3.9 (3.5-5.0) g/dL Discharge Plan Discharge Clinical Impression: Atypical chest pain, Anxiety Patient Disposition: Home, Self-Care Instructions: Anxiety (ED), Chest Wall Pain (ED) Prescriptions: No Action clonidine HCl 0.2 mg tablet 0.1 mg PO Q8H Qty: 10 0RF ibuprofen 800 mg tablet 800 mg PO Q8H PRN (Reason: pain) Qty: 30 0RF methadone 10 mg Tablet 87 mg PO DAILY 0RF oxcarbazepine 150 mg Tablet 150 mg PO BID 30 Days Qty: 60 0RF benztropine 0.5 mg Tablet 0.5 mg PO TID PRN (Reason: EPS) Qty: 90 0RF Rx Instructions: take with haldol haloperidol 5 mg Tablet 5 mg PO TID PRN (Reason: Anxiety) Qty: 90 0RF Rx Instructions: take with cogentin lithium carbonate 300 mg Tablet Extended Release 600 mg PO BEDTIME 30 Days Qty: 60 0RF lithium carbonate 450 mg Tablet Extended Release 450 mg PO DAILY 30 Days Qty: 30 0RF albuterol sulfate 90 mcg/actuation HFA aerosol inhaler 2 puff inhalation QID PRN (Reason: shortness of breath or wheezing) Qty: 6.7 0RF olanzapine 10 mg tablet 10 mg PO BEDTIME Qty: 30 0RF azithromycin 250 mg tablet 250 mg PO DAILY 4 Days Qty: 4 0RF Rx Instructions: Start 10/31/2021 ibuprofen 600 mg tablet 600 mg PO Q6H PRN (Reason: pain) Qty: 30 0RF Referrals: Molly Ford MD [Primary Care Provider] - 2 days Interventions: ED Discharge Assessment Last Done: 07/27/20 16:45 Discharge Date/Time: 07/27/20 15:38
== END 2020-07-27 15:38 | disposition home or self-care (01) ==
PROVIDERS: Nurse Practitioner Family; Emergency Provider Emergency Medicine; PCP Internal Medicine
DX: R07.89 Other chest pain (principal); R19.7 Diarrhea, unspecified; F11.10 Opioid abuse, uncomplicated; F17.200 Nicotine dependence, unspecified, uncomplicated; Z71.6 Tobacco abuse counseling; Z79.899 Other long term (current) drug therapy
CPT/HCPCS: 36415; 71046; 80048; 80076; 83735; 84484; 85025; 93005; 99283; 99284

== ENCOUNTER 2020-09-03 19:40 | Emergency (ER) | payer MEDICAID, SELFPAY ==
[2020-09-03 20:03] VITALS: BP 154/85; PULSE 104; RESP 20; TEMP 36.6; BMI 21.6
--- NOTE | 2020-09-03 20:24 | XR_ITS ---
EXAMINATION: 1. CHEST. 2. ABDOMEN. CLINICAL INFORMATION: Shortness of breath. Chest pain. Constipation. COMPARISON: 1. Chest 07/27/2020. 2. Plain film abdomen 12/29/2013 TECHNIQUE: 1. Chest. Frontal portable chest x-ray 8:34 PM 2. Abdomen. Supine AP view abdomen FINDINGS: 1. Chest. There is no acute abnormality. Lungs are normally aerated. There is no pulmonary vascular congestion. There is no pleural effusion pneumothorax. Heart size is normal. The cardiac and mediastinal contours are normal. 2. Abdomen. There is a large volume of stool in the colon seen from the cecum through the pelvis. Largest collection is in the pelvis. Findings consistent with constipation. There is no abnormal bowel dilatation. The bowel pattern is nonobstructive. XR/XR KUB IMPRESSION: 1. Chest. No acute abnormality of the chest. 2. Abdomen. Large volume of stool in colon, constipation. No bowel obstruction.
--- NOTE | 2020-09-03 20:24 | XR_ITS ---
EXAMINATION: 1. CHEST. 2. ABDOMEN. CLINICAL INFORMATION: Shortness of breath. Chest pain. Constipation. COMPARISON: 1. Chest 07/27/2020. 2. Plain film abdomen 12/29/2013 TECHNIQUE: 1. Chest. Frontal portable chest x-ray 8:34 PM 2. Abdomen. Supine AP view abdomen FINDINGS: 1. Chest. There is no acute abnormality. Lungs are normally aerated. There is no pulmonary vascular congestion. There is no pleural effusion pneumothorax. Heart size is normal. The cardiac and mediastinal contours are normal. 2. Abdomen. There is a large volume of stool in the colon seen from the cecum through the pelvis. Largest collection is in the pelvis. Findings consistent with constipation. There is no abnormal bowel dilatation. The bowel pattern is nonobstructive. XR/XR chest 1V IMPRESSION: 1. Chest. No acute abnormality of the chest. 2. Abdomen. Large volume of stool in colon, constipation. No bowel obstruction.
--- NOTE | 2020-09-03 20:34 | ED_ITS ---
HPI - General Adult General Chief complaint: General Medical Stated complaint: COVID SYMPTOMS Time Seen by Provider: 09/03/20 20:13 Source: patient Mode of arrival: ambulatory History of Present Illness HPI narrative: 35-year-old male with past medical history of asthma, hepatitis- C, substance abuse, presenting to the ED complaining of intermittent chest tightness, intermittent SOB, & dry cough x2 days s/p receiving letter from detox facility that he may have been exposed to COVID19. Also reports constipation x8 days without BM or passing flatus. Admits to using Heroin. Reports 1 eposiode of emesis on Monday. Denies fever, chills, Nausea/diarrhea, dysuria, travel. Onset (ago): day(s) Related Data Previous Rx's Medication Instructions Recorded clonidine HCl 0.1 mg PO Q8H #10 tab 06/06/20 ondansetron 4 mg PO Q8H PRN 5 Days #15 tab 06/06/20 clindamycin HCl 300 mg PO BID 7 Days #14 cap 07/01/20 ibuprofen 800 mg PO Q8H PRN #30 tab 07/01/20 polyethylene glycol 3350 [Miralax] 17 g PO DAILY PRN #119 g 09/03/20 sodium phosphates [Fleet Enema] 118 ml PA DAILY 2 Days ml 09/03/20 Allergies Allergy/AdvReac Type Severity Reaction Status Date / Time mayonnaise [MAYONNAISE] Allergy Intermediate THROAT AND Verified 06/06/20 16:05 TONGUE ITCH quetiapine [From SEROQUEL] Allergy Intermediate DYSTONIA Verified 06/06/20 16:05 cat dander [CATS] Allergy Unknown WATERY Verified 06/06/20 16:05 EYES, SNEEZING dog dander [DOG] Allergy Unknown UNKNOWN Verified 06/06/20 16:05 paroxetine [From PAXIL] Allergy Unknown FLU LIKE Verified 06/06/20 16:05 SYMPTOMS penicillin V Allergy Unknown Unknown Verified 06/06/20 16:05 Penicillins [PENICILLINS] Allergy Unknown SWELLING Verified 06/06/20 16:05 SEAFOOD Allergy Severe DIFFICULTY Uncoded 05/21/20 15:30 BREATHING Review of Systems Review of Systems: Constitutional: No Weight loss, No Fever, No Chills ENT/Mouth: No Ear Pain, No Nasal Congestion, No Sinus Pain, No Hoarseness, No sore throat, No Rhinorrhea, No Swallowing Difficulty Cardiovascular: + Chest Pain, + SOB Respiratory: + Cough, No Sputum, No Wheezing Gastrointestinal: No Nausea, + Vomiting, No Diarrhea, + Constipation, + Abdominal pain Genitourinary:, No Dysuria, No Urinary Frequency, No Hematuria, No Urinary Incontinence, No Urgency, No Flank Pain Musculoskeletal: No joint pain, No Myalgias, No Joint Swelling Skin: No Skin Lesions, No rash Yes all other systems are reviewed and are negative [facility] Past Medical History Attestation statement: The following information was validated with the patient. Medical History ACL (anterior cruciate ligament) rupture Asthma Hepatitis C Hepatitis C antibody positive in blood Knee cartilage, torn, right Substance abuse withdrawal Social History Social History Alcohol intake: never Smoking Status: Current every day smoker Substance Use Type: Heroin Advance Directives: No Advance Directives Information Provided: No Physical Exam Vital Signs: Vital Signs: Last Vital Signs Temp 98 F 09/03/20 20:03 Pulse 104 H 09/03/20 20:03 Resp 20 09/03/20 20:03 BP 154/85 H 09/03/20 20:03 Body Mass Index 21.6 Const: General: cooperative and healthy appearing Orientation/consciousness: patient oriented x3 Limitations: no limitations HENMT: Head: Yes normal to inspection Ears: hearing grossly normal bilaterally General nose exam: Normal external nose present Face and sinus: Yes normal facial exam Eyes: General: appearance normal, both eyes and all related structures EOM: EOMs intact bilaterally Neck: Neck: Yes normal visual inspection and Yes no meningeal signs Resp: Effort & Inspection: normal respiratory effort and no stridor Auscultation: clear to auscultation bilaterally, no rales, no rhonchi and no wheezes Cardio: Rate: regular rate Heart sounds: S1 normal heart sound present and S2 normal heart sound present GI: Inspection: Yes normal to inspection and Yes distended (mildly) Palpation (GI): Soft to palpation, nontender, no guarding and not rigid Skin: Rashes: no rashes Wounds: no wounds Neuro: General: patient oriented x3 and no meningeal signs Gait exam (Neuro): Normal gait present Extrem: General: Yes normal to inspection Course Course Course Narrative: * Chest x-ray unremarkable * KUB with large amount of stool in the colon, no evidence of obstruction imaging results discussed with patient including worrisome signs and symptoms including if he does not have a BM 48 hours return to the ED, he verbalized understanding feel safe for discharge home Medical Decision Making MDM Narrative Medical decision making narrative: 35-year-old male with past medical history of asthma, hepatitis-C, substance abuse, presenting to the ED complaining of intermittent chest tightness, intermittent SOB, & dry cough x2 days s/p receiving letter from detox facility that he may have been exposed to COVID19. On exam mildly tachycardic, NAD, lungs CTA, abdomen mildly distended, soft, no rebound or guarding. Concern for COVID-19/viral syndrome vs SBO/constipation. Low concern for ACS/PE with symptoms being intermittent Plan: CXR, KUB, COVID-19 Discharge Plan Discharge Clinical Impression: Viral syndrome Constipation Qualifiers: Constipation type: unspecified constipation type Qualified Code(s): K59.00 - Constipation, unspecified Patient Disposition: Home, Self-Care Instructions: Constipation (ED), Viral Syndrome (ED) Additional Instructions: Your abdomen is full of stool, use enema, and MiraLax at home as prescribed If you do not have a bowel movement in the next 48 hours return to the ED immediately Based on your symptoms and history we have sent a COVID-19. Although your RESULT IS PENDING at this time. RESULTS should return within 2-7 days At this time you will be contacted with either NEGATIVE OR POSITIVE results. -Please wait until we contact you for your results. At this time you will be okay for discharge. Please plan for self quarantine for up to 14 days. Do not expose yourself to others. You may not go to work. If testing does come back negative you may return to activities as long as you are no longer having any symptoms for at least 3 days. Please continue to follow cold instructions and wash your hands frequently. You may take Tylenol as directed on the bottle for pain or fever. CDC Guidelines for home isolation: - Stay away from others - WEAR A MASK if you are sick AND STAY HOME - Cover your mouth and nose with a tissue when you cough or sneeze. Dispose of tissues in a lined trash can and wash your hands immediately with soap and water for at least 20 seconds. If soap and water are not available, clean hands with alcohol-based hand client resolution specialist that contains at least 60% alcohol. - Clean your hands often with soap and water for at least 20 seconds - Avoid touching your eyes, nose and mouth with unwashed hands - Do not share dishes, drinking glasses, cups, eating utensils, towels, or bedding with other people in your home. After using these items, wash them thoroughly with soap and water or put in the vice president of product marketing. - Clean high-touch surfaces in your isolation area ( sick room and bathroom) every day; let a caregiver clean and disinfect high-touch surfaces in other areas of the home. Clean the area or item with soap and water or another detergent if it is dirty. Then, use a household disinfectant. - Limit contact with pets and animals: If you must care for a pet, wash your hands before and after interacting with them) Prescriptions: [place] Enema 19-7 gram/118 mL enema 118 ml PA DAILY 2 Days RF: 0 polyethylene glycol 3350 [Miralax] 17 gram/dose powder 17 g PO DAILY PRN (Reason: constipation) Qty: 119 RF: 0 No Action clonidine HCl 0.2 mg tablet 0.1 mg PO Q8H Qty: 10 RF: 0 ondansetron 4 mg tablet,disintegrating 4 mg PO Q8H PRN (Reason: nausea and vomiting) 5 Days Qty: 15 RF: 0 clindamycin HCl 300 mg capsule 300 mg PO BID 7 Days Qty: 14 RF: 0 ibuprofen 800 mg tablet 800 mg PO Q8H PRN (Reason: pain) Qty: 30 RF: 0 Referrals: Physician,Unknown [Primary Care Provider] - 2 days
== END 2020-09-03 21:57 | disposition home or self-care (01) ==
PROVIDERS: Physician Assistant; Emergency Provider Emergency Medicine
DX: B34.9 Viral infection, unspecified (principal); R05 Cough; K59.00 Constipation, unspecified; Z20.828 Contact with and (suspected) exposure to other viral communicable diseases; F11.90 Opioid use, unspecified, uncomplicated
CPT/HCPCS: 71045; 74018; 99283; U0003

== ENCOUNTER 2020-09-10 20:36 | Emergency (ER) | payer MEDICAID, SELFPAY ==
[2020-09-10 21:08] VITALS: BP 128/69; PULSE 82; RESP 16; TEMP 36.9; O2SAT 98; BMI 25.2
== END 2020-09-10 22:16 | disposition left against medical advice (07) ==
PROVIDERS: Emergency Provider Emergency Medicine; PCP Internal Medicine
DX: K13.79 Other lesions of oral mucosa (principal)
CPT/HCPCS: 99282

== ENCOUNTER 2020-09-12 16:33 | Emergency (ER) | payer MEDICAID, SELFPAY ==
[2020-09-12 17:36] VITALS: BP 120/88; PULSE 80; RESP 16; TEMP 37; O2SAT 98; BMI 22.3
[2020-09-12 19:46] VITALS: BP 112/67; PULSE 68; RESP 14; TEMP 37.4; O2SAT 95
== END 2020-09-12 20:30 | disposition left against medical advice (07) ==
PROVIDERS: Emergency Provider Emergency Medicine
DX: K12.2 Cellulitis and abscess of mouth (principal); K02.9 Dental caries, unspecified
CPT/HCPCS: 99283

== ENCOUNTER 2020-09-24 13:11 | Outpatient (REF) | payer MEDICAID, SELFPAY ==
--- NOTE | 2020-09-24 13:17 | XR_ITS ---
EXAMINATION: XR LUMBOSACRAL SPINE CLINICAL INFORMATION: Back pain with left-sided sciatica. COMPARISON: Lumbar spine radiographs dated 03/04/2009 TECHNIQUE: Three views of the lumbosacral spine. FINDINGS: Mild straightening of the normal lumbar lordosis, which may be positional or related to muscular spasm. No acute fracture or subluxation. No loss of vertebral body or intervertebral disc height. No lytic or blastic osseous lesion. No abnormal soft tissue calcification. XR/XR lumbar spine 2-3V IMPRESSION: Mild straightening of the normal lumbar lordosis, which may be positional or related to muscular spasm.
== END 2020-09-24 13:12 | disposition home or self-care (01) ==
LOC: HO.XRAY 13:11
PROVIDERS: Visit Provider Internal Medicine
DX: M54.42 Lumbago with sciatica, left side (principal)
CPT/HCPCS: 72100

== ENCOUNTER 2020-09-25 20:37 | Emergency (ER) | payer MEDICAID, SELFPAY ==
--- NOTE | 2020-09-25 23:01 | ED_ITS ---
HPI - Dental/Oral General Stated complaint: Dental pain Time Seen by Provider: 09/25/20 23:01 Source: patient Mode of arrival: ambulatory Limitations: no limitations History of Present Illness HPI Narrative: dental pain for the last several days upper gum line notes that tooth is missing - has had some pus after brushing he notes, hx of same in past responded to clindamycin Complaint: tooth pain Teeth map: 1. Onset (ago): day(s) (several ) Duration: constant Severity: moderate Relieving factors: nothing Exacerbating factors: nothing Context: history of dental caries and poor dental care Treatment prior to arrival: none Related Data Previous Rx's Medication Instructions Recorded clonidine HCl 0.1 mg PO Q8H #10 tab 06/06/20 ondansetron 4 mg PO Q8H PRN 5 Days #15 tab 06/06/20 clindamycin HCl 300 mg PO BID 7 Days #14 cap 07/01/20 ibuprofen 800 mg PO Q8H PRN #30 tab 07/01/20 polyethylene glycol 3350 [Miralax] 17 g PO DAILY PRN #119 g 09/03/20 sodium phosphates [Fleet Enema] 118 ml DC DAILY 2 Days ml 09/03/20 clindamycin HCl 300 mg PO TID 7 Days #21 cap 09/25/20 Allergies Allergy/AdvReac Type Severity Reaction Status Date / Time mayonnaise [MAYONNAISE] Allergy Intermediate THROAT AND Verified 06/06/20 16:05 TONGUE ITCH quetiapine [From SEROQUEL] Allergy Intermediate DYSTONIA Verified 06/06/20 16:05 cat dander [CATS] Allergy Unknown WATERY Verified 06/06/20 16:05 EYES, SNEEZING dog dander [DOG] Allergy Unknown UNKNOWN Verified 06/06/20 16:05 paroxetine [From PAXIL] Allergy Unknown FLU LIKE Verified 06/06/20 16:05 SYMPTOMS penicillin V Allergy Unknown Unknown Verified 06/06/20 16:05 Penicillins [PENICILLINS] Allergy Unknown SWELLING Verified 06/06/20 16:05 SEAFOOD Allergy Severe DIFFICULTY Uncoded 05/21/20 15:30 BREATHING Review of Systems Review of Systems: Constitutional : No Fever, No Chills ENT/Mouth : No swallowing difficulty, no change in voice, positive dental pain, no jaw pain, positive facial swelling Eyes: No Eye Pain, No Swelling Cardiovascular : No Chest Pain, No SOB Respiratory : No Cough, No Sputum Gastrointestinal : No Nausea, No Vomiting, No Diarrhea Genitourinary : No Dysuria Musculoskeletal : No Myalgias Skin : No rash Neuro : No Weakness, No Numbness, No Headache [facility] Past Medical History Attestation statement: The following information was validated with the patient. Medical History ACL (anterior cruciate ligament) rupture Asthma Hepatitis C Hepatitis C antibody positive in blood Knee cartilage, torn, right Substance abuse withdrawal Social History Social History Alcohol intake: never Smoking Status: Current every day smoker Substance Use Type: Heroin Physical Exam Vital Signs: Appearance: Alert. Oriented X3. No acute distress. Eyes: Pupils equal, round and reactive to light. ENT: poor diffuse dentition, gum line above R upper canine erythematous, slightly swollen, area of fluctuance that is already draining, mild swelling minimal r cheek Neck: Normal inspection. Neck supple. CVS: Normal heart rate and rhythm. Pulses normal. Respiratory: No respiratory distress. Breath sounds normal. Abdomen: Soft and nontender. Skin: Skin warm and dry. Normal skin color. Normal skin turgor. Extremities: No lower extremity edema. No calf ttp Neuro: Oriented X 3. No motor deficit. No sensory deficit. MDM - Dental/Oral MDM Narrative Medical decision making narrative: no toxic, no concern for deeper space infection, poor dentition, draining dental abscess along gum line, plans to see dentist, start on antibiotics and given precautions to return Discharge Plan Discharge Clinical Impression: Abscess, dental Patient Disposition: Home, Self-Care Instructions: Dental Abscess (ED) Additional Instructions: return to ED for any worsening symptoms or concerns PLEASE SEE A DENTIST SOON POSSIBLE RETURN IF YOU FEEL YOUR SYMPTOMS ARE NOT IMPROVING ON ANTIBIOTICS Prescriptions: New clindamycin HCl 300 mg capsule 300 mg PO TID 7 Days Qty: 21 RF: 0 No Action Fleet Enema 19-7 gram/118 mL enema 118 ml DC DAILY 2 Days RF: 0 polyethylene glycol 3350 [Miralax] 17 gram/dose powder 17 g PO DAILY PRN (Reason: constipation) Qty: 119 RF: 0 clonidine HCl 0.2 mg tablet 0.1 mg PO Q8H Qty: 10 RF: 0 ondansetron 4 mg tablet,disintegrating 4 mg PO Q8H PRN (Reason: nausea and vomiting) 5 Days Qty: 15 RF: 0 clindamycin HCl 300 mg capsule 300 mg PO BID 7 Days Qty: 14 RF: 0 ibuprofen 800 mg tablet 800 mg PO Q8H PRN (Reason: pain) Qty: 30 RF: 0
[2020-09-25 23:14] VITALS: BP 114/60; PULSE 64; RESP 14; TEMP 35.8; O2SAT 95; BMI 25.1
== END 2020-09-25 23:33 | disposition home or self-care (01) ==
LOC: HO.ED 23:27
PROVIDERS: Emergency Provider Emergency Medicine; PCP Internal Medicine
DX: K04.7 Periapical abscess without sinus (principal); F17.200 Nicotine dependence, unspecified, uncomplicated
CPT/HCPCS: 99283; 99284

== ENCOUNTER 2020-11-01 23:47 | Emergency (ER) | payer MEDICAID, SELFPAY ==
--- NOTE | ~2020-11-01 | XR_ITS ---
EXAMINATION: XR ABDOMEN KUB CLINICAL INDICATION: Left lower quadrant discomfort. History of constipation. COMPARISON: 09/03/2020 TECHNIQUE: AP view of the abdomen. FINDINGS: Nonobstructive bowel gas pattern. Gas and stool throughout the colon with moderate colonic stool burden. No suspicious calcifications. The lung bases are clear. No acute osseous abnormality. XR/XR KUB IMPRESSION: Moderate colonic stool burden.
[2020-11-01 23:51] VITALS: BP 127/67; PULSE 92; RESP 17; TEMP 36.5; O2SAT 96; BMI 22.3
== END 2020-11-02 01:51 | disposition left against medical advice (07) ==
PROVIDERS: Emergency Provider Emergency Medicine; PCP Internal Medicine
DX: R10.32 Left lower quadrant pain (principal); K59.00 Constipation, unspecified; F41.9 Anxiety disorder, unspecified
CPT/HCPCS: 74018; 99282; 99283

== ENCOUNTER 2020-11-09 15:00 | Outpatient (RCR) | payer MEDICAID, SELFPAY | END 2020-12-01 10:07 | disposition other institution (70) | LOC: HO.PT 15:00 | PROVIDERS: PCP Internal Medicine; Visit Provider Internal Medicine | DX: G57.31 Lesion of lateral popliteal nerve, right lower limb (principal) | CPT/HCPCS: 97110; 97140; 97162 ==

== ENCOUNTER 2020-12-22 11:49 | Emergency (ER) | payer MEDICAID, SELFPAY ==
[2020-12-22 12:18] VITALS: BP 144/66; PULSE 88; RESP 18; TEMP 37.3; O2SAT 96; BMI 24.3
--- NOTE | 2020-12-22 12:21 | ED_ITS ---
HPI - General Adult General Chief complaint: General Medical <JACKIE Pinzon - Last Filed: 12/22/20 12:30> Stated complaint: WHITE SPOT BACK OF THROAT <JACKIE Pinzon - Last Filed: 12/22/20 12:30> Time Seen by Provider: 12/22/20 12:21 <JACKIE Pinzon - Last Filed: 12/22/20 12:30> Source: patient <JACKIE Pinzon - Last Filed: 12/22/20 12:30> Mode of arrival: ambulatory <JACKIE Pinzon - Last Filed: 12/22/20 12:30> Limitations: no limitations <JACKIE Pinzon Last Filed: 12/22/20 12:30> History of Present Illness HPI narrative: 35 y/o male with history of mild intermittent asthma presents to the ED c/o 3 days of sore throat. He noticed white spots in the back of his throat yesterday and started doing warm salt water gargles with no improvement. Hes been eating and drinking ok, no difficulty. He denies fever, SOB, cough, congestion, N/V/D, abd pain, headache or myalgias. <JACKIE Pinzon - Last Filed: 12/22/20 12:30> MD complaint: sore throat <JACKIE Pinzon - Last Filed: 12/22/20 12:30> Onset (ago): day(s) (3) <JACKIE Pinzon - Last Filed: 12/22/20 12:30> Location: mouth <JACKIE Pinzon Last Filed: 12/22/20 12:30> Radiation: non-radiation <JACKIE Pinzon Last Filed: 12/22/20 12:30> Severity: moderate <JACKIE Pinzon Last Filed: 12/22/20 12:30> Severity scale (1-10): 6 <JACKIE Pinzon Last Filed: 12/22/20 12:30> Quality: aching and sharp <JACKIE Pinzon Last Filed: 12/22/20 12:30> Pain Consistency: constant <JACKIE Pinzon - Last Filed: 12/22/20 12:30> Relieving factors: medication <JACKIE Pinzon Last Filed: 12/22/20 12:30> Exacerbating factors: other (eating and swallowing) <JACKIE Pinzon Last Filed: 12/22/20 12:30> Associated symptoms: denies other symptoms <JACKIE Pinzon Last Filed: 12/22/20 12:30> Treatments prior to arrival: none <JACKIE Pinzon Last Filed: 12/22/20 12:30> Related Data Home medications: Previous Rx's Medication Instructions Recorded clonidine HCl 0.1 mg PO Q8H #10 tab 06/06/20 ondansetron 4 mg PO Q8H PRN 5 Days #15 tab 06/06/20 clindamycin HCl 300 mg PO BID 7 Days #14 cap 07/01/20 ibuprofen 800 mg PO Q8H PRN #30 tab 07/01/20 polyethylene glycol 3350 [Miralax] 17 g PO DAILY PRN #119 g 09/03/20 sodium phosphates [Fleet Enema] 118 ml NH DAILY 2 Days ml 09/03/20 clindamycin HCl 300 mg PO TID 7 Days #21 cap 09/25/20 azithromycin [Zithromax Z-Clayton] See Rx Instructions .ROUTE 12/22/20 .COMPLEX #6 tab <JACKIE Pinzon - Last Filed: 12/22/20 12:30> Allergies/adverse reactions: Allergies Allergy/AdvReac Type Severity Reaction Status Date / Time mayonnaise [MAYONNAISE] Allergy Intermediate THROAT AND Verified 06/06/20 16:05 TONGUE ITCH quetiapine [From SEROQUEL] Allergy Intermediate DYSTONIA Verified 06/06/20 16:05 cat dander [CATS] Allergy Unknown WATERY Verified 06/06/20 16:05 EYES, SNEEZING dog dander [DOG] Allergy Unknown UNKNOWN Verified 06/06/20 16:05 paroxetine [From PAXIL] Allergy Unknown FLU LIKE Verified 06/06/20 16:05 SYMPTOMS penicillin V Allergy Unknown Unknown Verified 06/06/20 16:05 Penicillins [PENICILLINS] Allergy Unknown SWELLING Verified 06/06/20 16:05 SEAFOOD Allergy Severe DIFFICULTY Uncoded 05/21/20 15:30 BREATHING <JACKIE Pinzon - Last Filed: 12/22/20 12:30> Review of Systems Review of Systems: Constitutional: No Fever, No Chills ENT/Mouth: + sore throat, No Rhinorrhea, No Swallowing Difficulty Eyes: No Eye Pain, No Swelling, No Redness Cardiovascular: No Chest Pain, No SOB Respiratory: No Cough, No Sputum, No Wheezing Gastrointestinal: No Nausea, No Vomiting, No Diarrhea, No abdominal Pain Musculoskeletal: No joint pain, No Myalgias Skin: No Skin Lesions, No rash Neuro:No Dizziness, No Headache Heme/Lymph: No Lymphadenopathy <JACKIE Pinzon - Last Filed: 12/22/20 12:30> [facility] Past Medical History Attestation statement: The following information was validated with the patient. <JACKIE Pinzon - Last Filed: 12/22/20 12:30> Medical History: Medical History ACL (anterior cruciate ligament) rupture Asthma Hepatitis C Hepatitis C antibody positive in blood Knee cartilage, torn, right Substance abuse withdrawal <JACKIE Pinzon - Last Filed: 12/22/20 12:30> Social History Social History: Social History Alcohol intake: current Alcohol intake frequency: a few times a month Alcohol type: beer and hard liquor Smoking Status: Smoker, status unknown Substance Use Type: Heroin Advance Directives: Yes Advance Directives Information Provided: Yes Advance Directives on File: No <JACKIE Pinzon Last Filed: 12/22/20 12:30> Physical Exam Vital Signs: Vital Signs: Last Vital Signs Temp 99.2 F 12/22/20 12:18 Pulse 88 12/22/20 12:18 Resp 18 12/22/20 12:18 BP 144/66 H 12/22/20 12:18 Pulse Ox 96 12/22/20 12:18 Body Mass Index 24.3 Appearance: Alert. Oriented X3. No acute distress. HEENT: normal external inspection. posterior oropharynx with moderate generalized erythema with exudates on uvula. No cervical LAD. normal voice, handing secretions normally CVS: Normal heart rate and rhythm. Pulses normal. Respiratory: No respiratory distress. Lung CTAB Skin: Skin warm and dry. Normal skin color. Normal skin turgor. No rashes. Extremities: atraumatic, no edema Neuro: Oriented X 3. Non-focal, steady gait <JACKIE Pinzon - Last Filed: 12/22/20 12:30> Vital Signs: Last Vital Signs Temp 99.2 F 12/22/20 12:18 Pulse 88 12/22/20 12:18 Resp 18 12/22/20 12:18 BP 144/66 H 12/22/20 12:18 Pulse Ox 96 12/22/20 12:18 Body Mass Index 24.3 <Jeronimo Potts MD - Last Filed: 12/30/20 08:33> Course Course Course Narrative: 35 yo male presenting with 3 days of sore throat wtih exudates on his posterior oropharynx. No signs/symptoms of COVID-19. He is non-toxic appearing. No evidence of peritonsillar abscess. No hx homosexual oral sex. Will treat empirically for Strep throat.Swab sent and patient counseled. Stable for d/c. <JACKIE Pinzon - Last Filed: 12/22/20 12:30> I have reviewed the chart <Jeronimo Potts MD - Last Filed: 12/30/20 08:33> Critical Care Time Critical Care Time Critical Care Time: No <JACKIE Pinzon - Last Filed: 12/22/20 12:30> Discharge Plan Discharge Clinical Impression: Pharyngitis <JACKIE Pinzon - Last Filed: 12/22/20 12:30> Patient Disposition: Home, Self-Care <JACKIE Pinzon - Last Filed: 12/22/20 12:30> Instructions: Pharyngitis (ED) <JACKIE Pinzon - Last Filed: 12/22/20 12:30> Additional Instructions: Your exam is consistent with Strep throat so you are being started on antibiotics. Take the antibiotics as directed. Use warm salt water gargles several times per day. Use Cepacol lozenges ro Chloraseptic spray for your sore throat. Drink plenty of water and stay hydrated. Take Tylenol and/or Motrin as needed for pain. Follow up with your doctor this week. If you have any worsening symptoms come back to the ER for further evaluation. <JACKIE Pinzon - Last Filed: 12/22/20 12:30> Prescriptions: New azithromycin [Zithromax Z-Clayton] 250 mg tablet See Rx Instructions .ROUTE .COMPLEX Qty: 6 RF: 0 No Action Fleet Enema 19-7 gram/118 mL enema 118 ml NH DAILY 2 Days RF: 0 polyethylene glycol 3350 [Miralax] 17 gram/dose powder 17 g PO DAILY PRN (Reason: constipation) Qty: 119 RF: 0 clonidine HCl 0.2 mg tablet 0.1 mg PO Q8H Qty: 10 RF: 0 ondansetron 4 mg tablet,disintegrating 4 mg PO Q8H PRN (Reason: nausea and vomiting) 5 Days Qty: 15 RF: 0 clindamycin HCl 300 mg capsule 300 mg PO BID 7 Days Qty: 14 RF: 0 ibuprofen 800 mg tablet 800 mg PO Q8H PRN (Reason: pain) Qty: 30 RF: 0 clindamycin HCl 300 mg capsule 300 mg PO TID 7 Days Qty: 21 RF: 0 <JACKIE Pinzon - Last Filed: 12/22/20 12:30> Interventions: ED Discharge Assessment Last Done: 12/22/20 12:39 <JACKIE Pinzon - Last Filed: 12/22/20 12:30> Discharge Date/Time: 12/22/20 12:39 <JACKIE Pinzon - Last Filed: 12/22/20 12:30>
== END 2020-12-22 12:39 | disposition home or self-care (01) ==
PROVIDERS: Emergency Provider Emergency Medicine; PCP Internal Medicine
DX: J02.9 Acute pharyngitis, unspecified (principal); Z86.19 Personal history of other infectious and parasitic diseases; F11.10 Opioid abuse, uncomplicated
CPT/HCPCS: 87071; 87880; 99283

== ENCOUNTER 2021-04-14 12:49 | Emergency (ER) | payer MEDICAID, SELFPAY ==
--- NOTE | 2021-04-14 12:54 | ECG_ITS ---
Test Reason : SOB Blood Pressure : / mmHG Vent. Rate : 087 BPM Atrial Rate : 087 BPM P-R Int : 142 ms QRS Dur : 070 ms QT Int : 362 ms P-R-T Axes : 084 073 057 degrees QTc Int : 435 ms Normal sinus rhythm with sinus arrhythmia Biatrial enlargement Abnormal ECG When compared with ECG of 27-JUL-2020 14:14, No significant change was found Referred By: Generic ED Physician Electronically Signed By:LAUREN CISNEROS MD
[2021-04-14 12:55] VITALS: BP 127/82; PULSE 83; RESP 18; TEMP 37; O2SAT 97; BMI 22.1
== END 2021-04-14 16:57 | disposition left against medical advice (07) ==
PROVIDERS: Emergency Provider Emergency Medicine; PCP Internal Medicine
DX: R06.02 Shortness of breath (principal); R42 Dizziness and giddiness; R52 Pain, unspecified
CPT/HCPCS: 93005; 99283

== ENCOUNTER 2021-05-04 09:43 | Emergency (ER) | payer MEDICAID, SELFPAY ==
--- NOTE | 2021-05-04 | ECG_ITS ---
Test Reason : CP Blood Pressure : / mmHG Vent. Rate : 082 BPM Atrial Rate : 082 BPM P-R Int : 164 ms QRS Dur : 078 ms QT Int : 410 ms P-R-T Axes : 081 070 069 degrees QTc Int : 479 ms Normal sinus rhythm Normal ECG When compared with ECG of 14-APR-2021 12:55, QT has lengthened Referred By: Brittney Fuentes Electronically Signed By:HENRY PAYAN
--- NOTE | ~2021-05-04 | XR_ITS ---
EXAMINATION: XR CHEST CLINICAL INFORMATION: Chest pain COMPARISON: Chest radiographs 09/03/2022, 07/27/2020 TECHNIQUE: Portable upright AP view of the chest was obtained. FINDINGS: The lungs are clear. There is no pneumothorax, pleural reaction, infiltrate, or effusion. The costophrenic sulci are well-defined. The heart is normal in size. The hilar and mediastinal contours and bony structures are unremarkable. XR/XR chest 1V IMPRESSION: Unremarkable examination.
[2021-05-04 09:57] VITALS: BP 120/82; PULSE 84; RESP 16; TEMP 36.8; O2SAT 97; BMI 23.0
--- NOTE | 2021-05-04 09:57 | ED_ITS ---
HPI - Chest Pain General Chief Complaint: Upper Respiratory Symptoms Stated Complaint: flu like symptoms Time Seen by Provider: 05/04/21 09:50 Source: patient Mode of arrival: ambulatory Limitations: no limitations History of Present Illness MD complaint: other (COVID exposure, body aches, chest tightness) Onset (ago): day(s) (hasn't felt well for days, chest pain this AM) Timing of current episode: constant Prior episodes: Yes Onset: during rest Pain location: left chest Pain radiation: none Severity: mild Quality: tightness and sharp Relieving factors: nothing Exacerbating factors: nothing Context: other (contacted by [facility] about a close contact of COVID) Associated symptoms: other (chills cough body aches) Treatment prior to arrival: none Related Data Previous Rx's Medication Instructions Recorded clonidine HCl 0.2 mg tablet 0.1 mg PO Q8H #10 tab 06/06/20 ondansetron 4 mg disintegrating 4 mg PO Q8H PRN 5 Days #15 tab 06/06/20 tablet clindamycin HCl 300 mg capsule 300 mg PO BID 7 Days #14 cap 07/01/20 ibuprofen 800 mg tablet 800 mg PO Q8H PRN #30 tab 07/01/20 polyethylene glycol 3350 17 17 g PO DAILY PRN #119 g 09/03/20 gram/dose oral powder (Miralax) sodium phosphates 19 gram-7 118 ml FL DAILY 2 Days ml 09/03/20 gram/118 mL enema (Fleet Enema) clindamycin HCl 300 mg capsule 300 mg PO TID 7 Days #21 cap 09/25/20 azithromycin 250 mg tablet See Rx Instructions .ROUTE 12/22/20 (Zithromax Z-Clayton) .COMPLEX #6 tab albuterol sulfate 90 mcg/actuation 2 puff INHALATION QID PRN #6.7 g 05/04/21 aerosol inhaler prednisone 20 mg tablet 40 mg PO DAILY 5 Days #10 tab 05/04/21 Allergies Allergy/AdvReac Type Severity Reaction Status Date / Time mayonnaise [MAYONNAISE] Allergy Intermediate THROAT AND Verified 06/06/20 16:05 TONGUE ITCH quetiapine [From SEROQUEL] Allergy Intermediate DYSTONIA Verified 06/06/20 16:05 cat dander [CATS] Allergy Unknown WATERY Verified 06/06/20 16:05 EYES, SNEEZING dog dander [DOG] Allergy Unknown UNKNOWN Verified 06/06/20 16:05 paroxetine [From PAXIL] Allergy Unknown FLU LIKE Verified 06/06/20 16:05 SYMPTOMS penicillin V Allergy Unknown Unknown Verified 06/06/20 16:05 Penicillins [PENICILLINS] Allergy Unknown SWELLING Verified 06/06/20 16:05 SEAFOOD Allergy Severe DIFFICULTY Uncoded 05/21/20 15:30 BREATHING Review of Systems Review of Systems: Constitutional : No Weight loss, No Fever, pos Chills, No Fatigue, No Malaise ENT/Mouth : No sore throat, No Rhinorrhea Eyes: No Eye Pain, No Swelling, No Redness Cardiovascular : pos Chest Pain, No SOB, No Dyspnea on Exertion, No Orthopnea, No Edema, No Palpitations Respiratory : pos Cough, No Sputum, pos Wheezing Gastrointestinal : No Nausea, No Vomiting, No Diarrhea, No Constipation, No abdominal Pain, No Hematochezia, No Melena Genitourinary : No Dysuria, No Urinary Frequency, No Hematuria, Musculoskeletal : No joint pain, pos Myalgias, No Joint Swelling Skin : No Skin Lesions, No rash Neuro : No Weakness, No Numbness, No Dizziness, No Headache Psych : No Anxiety/Panic, No Depression Heme/Lymph: No Bruising, No Bleeding,No Lymphadenopathy Endocrine : No Polyuria, No Polydipsia All other systems reviewed and are negative [facility] Past Medical History Attestation statement: The following information was validated with the patient. Medical History ACL (anterior cruciate ligament) rupture Asthma Hepatitis C Hepatitis C antibody positive in blood Knee cartilage, torn, right Substance abuse withdrawal Social History Social History Alcohol intake: current Alcohol intake frequency: a few times a month Alcohol type: beer and hard liquor Substance Use Type: Heroin Advance Directives: Yes Advance Directives Information Provided: No Advance Directives on File: No Physical Exam Vital Signs: Vital Signs: Last Vital Signs Temp 98.2 F 05/04/21 09:57 Pulse 84 05/04/21 09:57 Resp 16 05/04/21 09:57 BP 120/82 05/04/21 09:57 Pulse Ox 97 05/04/21 10:01 Body Mass Index 23.0 Appearance: Alert. Oriented X3. No acute distress. Eyes: Pupils equal, round and reactive to light. ENT: Pharynx normal. Neck: Normal inspection. Neck supple. CVS: Normal heart rate and rhythm. Pulses normal. Respiratory: No respiratory distress. Breath sounds diffuse end exp wheezes on exam mild Abdomen: Soft and nontender. Skin: Skin warm and dry. Normal skin color. Normal skin turgor. Extremities: No lower extremity edema. No calf ttp Neuro: Oriented X 3. No motor deficit. No sensory deficit. Course Course Course Narrative: EKG, trop and CXR negative, not toxic appearing likely asthma stable for DC PERC negative no ACS risk factors afebrile no WBC count doubt endocarditis MDM - Chest Pain MDM Narrative Medical decision making narrative: 35 yo male with hx of asthma and substance abuse comes in with c/o URI symptoms and chest pain he has no signs of DVT no hypoxia or tachycardia doubt PE at this time labs, troponin, EKG, CXR, COVID swab - given wheezes will give INH and dexamethasone, overall not toxic appea ring suspect COVID Lab Data Result diagrams: 05/04/21 09:58 05/04/21 09:58 Labs: Lab Results 05/04/21 05/04/21 05/04/21 Range/Units 09:58 09:58 09:58 WBC 6.2 (4.8-10.8) X10*3/uL RBC 5.24 (4.60-5.80) X10*6/uL Hgb 15.7 (14.0-18.0) g/dl Hct 46.2 (42-52) % MCV 88.2 (80-98) fL MCH 30.0 (27.0-33.0) pg MCHC 34.0 (31.0-36.0) g/dl RDW 11.6 (11.0-16.0) % Plt Count 157 L (160-400) X10*3/uL MPV 10.6 (9.4-12.4) fL Immature Gran % (Auto) 0.3 (0.0-0.4) % Neut % (Auto) 57.8 (45-73) % Lymph % (Auto) 31.4 (20-40) % [place] % (Auto) 6.5 (2-11) % Eos % (Auto) 3.4 (0-4) % Baso % (Auto) 0.6 (0-2) % Lymph # (Auto) 1.9 (1.2-4.9) X10*3/uL [place] # (Auto) 0.4 (0.1-1.2) X10*3/uL Eos # (Auto) 0.2 (0.0-0.4) X10*3/uL Baso # (Auto) 0.0 (0.0-0.2) X10*3/uL Abs Immat Gran (auto) 0.02 (0.00-0.03) X10*3/uL Absolute Neuts (auto) 3.6 (2.0-8.3) X10*3/uL Absolute Nucleated RBC 0.000 (0.0-0.012) X10*3/uL Nucleated RBC % (auto) 0.0 (0.0-0.2) /100WBC Sodium 140 (135-145) mmol/L Potassium 4.0 (3.3-5.1) mmol/L Chloride 105 (96-108) mmol/L Carbon Dioxide 28 (22-29) mmol/L Anion Gap 11 L (12-20) BUN 16 D (9-16) mg/dL Creatinine 1.04 (0.5-1.4) mg/dL Estim Creat Clear Calc 104.9 Estimated GFR > 60 Random Glucose 113 (60-115) mg/dL Calcium 10.0 D (8.4-10.2) mg/dL Troponin I High Sens < 3.5 (<3.5-35.0) ng/L COVID-19 (NAY) (Negative) COVID-19 Clin Com S. pyogenes GrpA DORI (Negative) 05/04/21 05/04/21 Range/Units 09:58 09:58 WBC (4.8-10.8) X10*3/uL RBC (4.60-5.80) X10*6/uL Hgb (14.0-18.0) g/dl Hct (42-52) % MCV (80-98) fL MCH (27.0-33.0) pg MCHC (31.0-36.0) g/dl RDW (11.0-16.0) % Plt Count (160-400) X10*3/uL MPV (9.4-12.4) fL Immature Gran % (Auto) (0.0-0.4) % Neut % (Auto) (45-73) % Lymph % (Auto) (20-40) % [place] % (Auto) (2-11) % Eos % (Auto) (0-4) % Baso % (Auto) (0-2) % Lymph # (Auto) (1.2-4.9) X10*3/uL [place] # (Auto) (0.1-1.2) X10*3/uL Eos # (Auto) (0.0-0.4) X10*3/uL Baso # (Auto) (0.0-0.2) X10*3/uL Abs Immat Gran (auto) (0.00-0.03) X10*3/uL Absolute Neuts (auto) (2.0-8.3) X10*3/uL Absolute Nucleated RBC (0.0-0.012) X10*3/uL Nucleated RBC % (auto) (0.0-0.2) /100WBC Sodium (135-145) mmol/L Potassium (3.3-5.1) mmol/L Chloride (96-108) mmol/L Carbon Dioxide (22-29) mmol/L Anion Gap (12-20) BUN (9-16) mg/dL Creatinine (0.5-1.4) mg/dL Estim Creat Clear Calc Estimated GFR Random Glucose (60-115) mg/dL Calcium (8.4-10.2) mg/dL Troponin I High Sens (<3.5-35.0) ng/L COVID-19 (NAY) Negative (Negative) COVID-19 Clin Com See Note S. pyogenes GrpA DORI Negative (Negative) ECG Data ECG #1: Attestation: I personally reviewed and interpreted this ECG as follows: ECG interpretation date: 05/04/21 ECG interpretation time: 09:58 Interpretation: Rate: 82 Rhythm: NSR [place]: normal Normal P waves. Normal CHRISTIANO. Normal QRS complex. ST T wave : normal no SHANI qTC: normal prior studies: no acute ischemia The study has been interpreted contemporaneously by me. . Discharge Plan Discharge Clinical Impression: Atypical chest pain Asthma Qualifiers: Asthma severity: moderate Asthma persistence: persistent Asthma complication type: with acute exacerbation Qualified Code(s): J45.41 - Moderate persistent asthma with (acute) exacerbation Patient Disposition: Home, Self-Care Instructions: Chest Pain (ED), Asthma (ED) Additional Instructions: return to ED for any worsening symptoms or concerns COVID test negative USE INHALER 2 TO 4 PUFFS EVERY 4 HOURS NEEDED FOR COUGH/WHEEZING Prescriptions: New prednisone 20 mg tablet 40 mg PO DAILY 5 Days Qty: 10 RF: 0 albuterol sulfate 90 mcg/actuation HFA aerosol inhaler 2 puff inhalation QID PRN (Reason: shortness of breath or wheezing) Qty: 6.7 RF: 0 No Action Fleet Enema 19-7 gram/118 mL enema 118 ml FL DAILY 2 Days RF: 0 polyethylene glycol 3350 [Miralax] 17 gram/dose powder 17 g PO DAILY PRN (Reason: constipation) Qty: 119 RF: 0 clonidine HCl 0.2 mg tablet 0.1 mg PO Q8H Qty: 10 RF: 0 ondansetron 4 mg tablet,disintegrating 4 mg PO Q8H PRN (Reason: nausea and vomiting) 5 Days Qty: 15 RF: 0 clindamycin HCl 300 mg capsule 300 mg PO BID 7 Days Qty: 14 RF: 0 ibuprofen 800 mg tablet 800 mg PO Q8H PRN (Reason: pain) Qty: 30 RF: 0 clindamycin HCl 300 mg capsule 300 mg PO TID 7 Days Qty: 21 RF: 0 azithromycin [Zithromax Z-Clayton] 250 mg tablet See Rx Instructions .ROUTE .COMPLEX Qty: 6 RF: 0 Referrals: Molly Ford MD [Primary Care Provider] - 3 days (IF NOT BETTER)
[2021-05-04 10:01] VITALS: O2SAT 97
[2021-05-04 10:10] LABS: MANUAL DIFF FLAG NO
[2021-05-04 10:11] LABS: Basophils Percent Auto 0.6 % (0-2); Eosinophils Absolute Auto 0.2 X10*3/uL (0.0-0.4); Eosinophils Percent Auto 3.4 % (0-4); Hematocrit 46.2 % (42-52); Hemoglobin 15.7 g/dl (14.0-18.0); Imm Gran Abs Auto 0.02 X10*3/uL (0.00-0.03); Imm Gran Pct Auto 0.3 % (0.0-0.4); Lymphocytes Absolute Auto 1.9 X10*3/uL (1.2-4.9); Lymphocytes Percent Auto 31.4 % (20-40); Mean Corpuscular Volume 88.2 fL (80-98); Mean Platelet Volume 10.6 fL (9.4-12.4); Monocytes Absolute Auto 0.4 X10*3/uL (0.1-1.2); Monocytes Percent Auto 6.5 % (2-11); Neutrophils Absolute Auto 3.6 X10*3/uL (2.0-8.3); Neutrophils Percent Auto 57.8 % (45-73); Platelet Count 157 X10*3/uL (160-400); Red Blood Count 5.24 X10*6/uL (4.60-5.80); Red Cell Distribution Width 11.6 % (11.0-16.0); White Blood Count 6.2 X10*3/uL (4.8-10.8)
[2021-05-04] MEDS: dexAMETHasone 6 MG TABLET PO (10:13)
[2021-05-04 10:25] LABS: Anion Gap 11 (12-20); Blood Urea Nitrogen 16 mg/dL (9-16); Carbon Dioxide 28 mmol/L (22-29); Chloride 105 mmol/L (96-108); Creatinine Clr Calc Pharmacy 104.9; Estimated Glomerular Filt Rate > 60; Glucose Random 113 mg/dL (60-115); Sodium 140 mmol/L (135-145)
[2021-05-04 10:31] LABS: IDNOW Serial# 08D9AD1C
[2021-05-04 10:32] LABS: COVID-19 Test Negative (Negative); IDNOW Serial# 9DD0AD1C; Strep A Nucleic Acid Negative (Negative); Troponin-I High Sensitivity < 3.5 ng/L (<3.5-35.0)
[2021-05-04] MEDS: Albuterol Sulfate 90 MCG 8 GM INHALER 2 PUFF INHALE (10:44)
== END 2021-05-04 10:45 | disposition home or self-care (01) ==
PROVIDERS: Physician Assistant Medical; Emergency Provider Emergency Medicine; PCP Internal Medicine
DX: R07.89 Other chest pain (principal); J45.41 Moderate persistent asthma with (acute) exacerbation; Z20.822 Contact with and (suspected) exposure to COVID-19; M79.10 Myalgia, unspecified site; F19.10 Other psychoactive substance abuse, uncomplicated
CPT/HCPCS: 36415; 71045; 80048; 84484; 85025; 87635; 87651; 93005; 99284; J8540

== ENCOUNTER 2021-05-10 23:43 | Emergency (ER) | payer MEDICAID, SELFPAY ==
[2021-05-11 00:26] VITALS: BP 98/64; PULSE 84; RESP 18; TEMP 36.1; O2SAT 95; BMI 22.3
[2021-05-11 01:03] VITALS: BP 98/69; PULSE 62; RESP 16; TEMP 36.8; O2SAT 98
--- NOTE | 2021-05-11 02:14 | PC.NURSE ---
pt was in room waiting to be seen by provider. alert and oriented. eye contact and verbal response appropriate for setting. pt denied any pain pain but stated he was feeling anxious. when provider when to see pt, pt was not in room. pt not found in bathrooms or waiting room. charge nurse notified.
== END 2021-05-11 02:20 | disposition left against medical advice (07) ==
PROVIDERS: Emergency Provider Emergency Medicine
DX: F41.9 Anxiety disorder, unspecified (principal); F41.0 Panic disorder [episodic paroxysmal anxiety]
CPT/HCPCS: 99281; 99284

== ENCOUNTER 2021-05-12 00:14 | Emergency (ER) | payer MEDICAID, SELFPAY ==
[2021-05-12 00:16] VITALS: BP 102/69; PULSE 98; RESP 18; TEMP 36.9; O2SAT 95; BMI 22.4
--- NOTE | 2021-05-12 00:25 | PC.NURSE ---
md in room for eval. pt c/o of feeling anxous. Pt alert, respirations easy, n/l. skin w/d.
--- NOTE | 2021-05-12 00:25 | ED_ITS ---
HPI - Anxiety General Chief Complaint: General Medical Stated Complaint: anxiety, LWT yesterday Time Seen by Provider: 05/12/21 00:24 Source: patient Mode of arrival: ambulatory Limitations: no limitations History of Present Illness MD complaint: anxiety and heart racing Onset (ago): week(s) (3) Symptoms: palpitations, extremity numbness/tingling, dry mouth and sense of impending doom Severity: severe Quality: intermittent Place: home History of similar episodes: Yes Provoking factors: emotional stress and other (was abusing 2 to 3mg of klonopin from the streets daily) Relieving factors: nothing Exacerbating factors: medication and thinking about event Associated symptoms: denies other symptoms Related Data Previous Rx's Medication Instructions Recorded clonidine HCl 0.2 mg tablet 0.1 mg PO Q8H #10 tab 06/06/20 ondansetron 4 mg disintegrating 4 mg PO Q8H PRN 5 Days #15 tab 06/06/20 tablet clindamycin HCl 300 mg capsule 300 mg PO BID 7 Days #14 cap 07/01/20 ibuprofen 800 mg tablet 800 mg PO Q8H PRN #30 tab 07/01/20 polyethylene glycol 3350 17 17 g PO DAILY PRN #119 g 09/03/20 gram/dose oral powder (Miralax) sodium phosphates 19 gram-7 118 ml [place] DAILY 2 Days ml 09/03/20 gram/118 mL enema (Fleet Enema) clindamycin HCl 300 mg capsule 300 mg PO TID 7 Days #21 cap 09/25/20 azithromycin 250 mg tablet See Rx Instructions .ROUTE 12/22/20 (Zithromax Z-Clayton) .COMPLEX #6 tab albuterol sulfate 90 mcg/actuation 2 puff INHALATION QID PRN #6.7 g 05/04/21 aerosol inhaler prednisone 20 mg tablet 40 mg PO DAILY 5 Days #10 tab 05/04/21 Allergies Allergy/AdvReac Type Severity Reaction Status Date / Time mayonnaise [MAYONNAISE] Allergy Intermediate THROAT AND Verified 05/12/21 00:16 TONGUE ITCH quetiapine [From SEROQUEL] Allergy Intermediate DYSTONIA Verified 05/12/21 00:16 cat dander [CATS] Allergy Unknown WATERY Verified 05/12/21 00:16 EYES, SNEEZING dog dander [DOG] Allergy Unknown UNKNOWN Verified 05/12/21 00:16 paroxetine [From PAXIL] Allergy Unknown FLU LIKE Verified 05/12/21 00:16 SYMPTOMS penicillin V Allergy Unknown Unknown Verified 05/12/21 00:16 Penicillins [PENICILLINS] Allergy Unknown SWELLING Verified 05/12/21 00:16 SEAFOOD Allergy Severe DIFFICULTY Uncoded 05/12/21 00:16 BREATHING Review of Systems Review of Systems: Constitutional : No Fever, No Chills ENT/Mouth : No Ear Pain, No Nasal Congestion, No sore throat Eyes: No Eye Pain, No Swelling, No Redness Cardiovascular : No Chest Pain, No SOB Respiratory : No Cough, No Sputum, No Dyspnea Gastrointestinal : No Nausea, No Vomiting, No Diarrhea Genitourinary : No Dysuria, No Urinary Frequency Musculoskeletal : No Myalgias Skin : No Skin Lesions, No rash Neuro : No Weakness, No Numbness, pos Paresthesias, No Dizziness, No Headache, pos insomnia Psych : positive Anxiety, positive Depression, no SI/HI Heme/Lymph: No Lymphadenopathy All other systems reviewed and are negative [facility] Past Medical History Attestation statement: The following information was validated with the patient. Medical History ACL (anterior cruciate ligament) rupture Asthma Hepatitis C Hepatitis C antibody positive in blood Knee cartilage, torn, right Substance abuse withdrawal Social History Social History Alcohol intake: current Alcohol intake frequency: a few times a month Alcohol type: beer and hard liquor Substance Use Type: Heroin Advance Directives: No Advance Directives Information Provided: Yes Physical Exam Vital Signs: Vital Signs: Last Vital Signs Temp 98.4 F 05/12/21 00:16 Pulse 98 05/12/21 00:16 Resp 18 05/12/21 00:16 BP 102/69 05/12/21 00:16 Pulse Ox 95 05/12/21 00:16 Body Mass Index 22.4 Appearance: Alert. Oriented X3. No acute distress. Anxious Eyes: Pupils equal, round and reactive to light. ENT: Pharynx normal. Neck: Normal inspection. Neck supple. CVS: Normal heart rate and rhythm. Pulses normal. Respiratory: No respiratory distress. Breath sounds normal. Abdomen: Soft and nontender. Skin: Skin warm and dry. Normal skin color. Normal skin turgor. Extremities: No lower extremity edema. No calf ttp Neuro: Oriented X 3. No motor deficit. No sensory deficit. MDM - Anxiety MDM Narrative Medical decision making narrative: 35 yo male with substance abuse and anxiety comes in with anxiety, tingling, feeling nervous since he has been using 2 to 3mg of klonopin off the street. He has no SI. He has a provider but they do not prescribe right now - he declines detox and crisis. He is requesting PRN and will follow up with PCP. I will not send home with RX - his VS are stable and he shows no autonomic dysfunction Discharge Plan Discharge Clinical Impression: Anxiety Patient Disposition: Home, Self-Care Instructions: Anxiety (ED) Additional Instructions: return to ED for any worsening symptoms or concerns please talk to your doctor about detox Prescriptions: No Action Fleet Enema 19-7 gram/118 mL enema 118 ml VA DAILY 2 Days RF: 0 polyethylene glycol 3350 [Miralax] 17 gram/dose powder 17 g PO DAILY PRN (Reason: constipation) Qty: 119 RF: 0 prednisone 20 mg tablet 40 mg PO DAILY 5 Days Qty: 10 RF: 0 albuterol sulfate 90 mcg/actuation HFA aerosol inhaler 2 puff inhalation QID PRN (Reason: shortness of breath or wheezing) Qty: 6.7 RF: 0 clonidine HCl 0.2 mg tablet 0.1 mg PO Q8H Qty: 10 RF: 0 ondansetron 4 mg tablet,disintegrating 4 mg PO Q8H PRN (Reason: nausea and vomiting) 5 Days Qty: 15 RF: 0 clindamycin HCl 300 mg capsule 300 mg PO BID 7 Days Qty: 14 RF: 0 ibuprofen 800 mg tablet 800 mg PO Q8H PRN (Reason: pain) Qty: 30 RF: 0 clindamycin HCl 300 mg capsule 300 mg PO TID 7 Days Qty: 21 RF: 0 azithromycin [Zithromax Z-Clayton] 250 mg tablet See Rx Instructions .ROUTE .COMPLEX Qty: 6 RF: 0
[2021-05-12] MEDS: clonazePAM 1 MG TABLET 2 MG PO (00:41)
--- NOTE | 2021-05-12 00:44 | PC.NURSE ---
PT MEDICATED FOR ANXIETY PER EMAR.
== END 2021-05-12 02:28 | disposition home or self-care (01) ==
PROVIDERS: Emergency Provider Emergency Medicine
DX: F41.1 Generalized anxiety disorder (principal); F43.0 Acute stress reaction; Z79.899 Other long term (current) drug therapy
CPT/HCPCS: 99283

== ENCOUNTER 2021-05-24 22:02 | Inpatient (IN) | payer OTHER, MEDICAID, SELFPAY ==
--- NOTE | 2021-05-24 22:07 | ED.PSYCH ---
HPI - Psych General Chief Complaint: Psychiatric Symptoms Stated Complaint: SI Time Seen by Provider: 05/24/21 22:04 Source: patient Mode of arrival: ambulatory Limitations: no limitations History of Present Illness MD complaint: suicidal ideation, feels depressed and substance abuse Onset (ago): week(s) (3) Duration: getting worse History of same: Yes Relieving factors: none Exacerbating factors: drug use Context: recent drug abuse Associated psychiatric symptoms: depression, suicidal ideation and homicidal ideation Associated symptoms: denies other symptoms Treatments prior to arrival: none Related Data Previous Rx's Medication Instructions Recorded clonidine HCl 0.2 mg tablet 0.1 mg PO Q8H #10 tab 06/06/20 ondansetron 4 mg disintegrating 4 mg PO Q8H PRN 5 Days #15 tab 06/06/20 tablet clindamycin HCl 300 mg capsule 300 mg PO BID 7 Days #14 cap 07/01/20 ibuprofen 800 mg tablet 800 mg PO Q8H PRN #30 tab 07/01/20 polyethylene glycol 3350 17 17 g PO DAILY PRN #119 g 09/03/20 gram/dose oral powder (Miralax) sodium phosphates 19 gram-7 118 ml [place] DAILY 2 Days ml 09/03/20 gram/118 mL enema (Fleet Enema) clindamycin HCl 300 mg capsule 300 mg PO TID 7 Days #21 cap 09/25/20 azithromycin 250 mg tablet See Rx Instructions .ROUTE 12/22/20 (Zithromax Z-Clayton) .COMPLEX #6 tab albuterol sulfate 90 mcg/actuation 2 puff INHALATION QID PRN #6.7 g 05/04/21 aerosol inhaler prednisone 20 mg tablet 40 mg PO DAILY 5 Days #10 tab 05/04/21 Allergies Allergy/AdvReac Type Severity Reaction Status Date / Time mayonnaise [MAYONNAISE] Allergy Intermediate THROAT AND Verified 05/12/21 00:16 TONGUE ITCH quetiapine [From SEROQUEL] Allergy Intermediate DYSTONIA Verified 05/12/21 00:16 cat dander [CATS] Allergy Unknown WATERY Verified 05/12/21 00:16 EYES, SNEEZING dog dander [DOG] Allergy Unknown UNKNOWN Verified 05/12/21 00:16 paroxetine [From PAXIL] Allergy Unknown FLU LIKE Verified 05/12/21 00:16 SYMPTOMS penicillin V Allergy Unknown Unknown Verified 05/12/21 00:16 Penicillins [PENICILLINS] Allergy Unknown SWELLING Verified 05/12/21 00:16 SEAFOOD Allergy Severe DIFFICULTY Uncoded 05/12/21 00:16 BREATHING Review of Systems Review of Systems: Constitutional : No Fever, No Chills ENT/Mouth : No Ear Pain, No Nasal Congestion, No sore throat Eyes: No Eye Pain, No Swelling, No Redness Cardiovascular : No Chest Pain, No SOB Respiratory : No Cough, No Sputum, No Dyspnea Gastrointestinal : No Nausea, No Vomiting, No Diarrhea, No Hematochezia, No Melena Genitourinary : No Dysuria, No Urinary Frequency, No Hematuria Musculoskeletal : No Myalgias Skin : No Skin Lesions, No rash Neuro : No Weakness, No Numbness, No Paresthesias, No Dizziness, No Headache Psych : positive Anxiety, positive Depression, positive SI/HI Heme/Lymph: No Lymphadenopathy Endocrine : No Polyuria, No Polydipsia All other systems reviewed and are negative [facility] Past Medical History Attestation statement: The following information was validated with the patient. Medical History ACL (anterior cruciate ligament) rupture Asthma Hepatitis C Hepatitis C antibody positive in blood Knee cartilage, torn, right Substance abuse withdrawal Social History Social History Alcohol intake: current Alcohol intake frequency: a few times a month Alcohol type: beer and hard liquor Substance Use Type: Heroin Advance Directives: No Advance Directives Information Provided: No Physical Exam Vital Signs: Vital Signs: Last Vital Signs Temp 98.4 F 05/24/21 23:00 Pulse 95 05/24/21 23:00 Resp 18 05/24/21 23:00 BP 120/76 05/24/21 23:00 Pulse Ox 99 05/24/21 23:00 Body Mass Index 20.9 Appearance: Alert. Oriented X3. No acute distress. Eyes: Pupils equal, round and reactive to light. ENT: Pharynx normal. Neck: Normal inspection. Neck supple. CVS: Normal heart rate and rhythm. Pulses normal. Respiratory: No respiratory distress. Breath sounds normal. Abdomen: Soft and nontender. Skin: Skin warm and dry. Normal skin color. Normal skin turgor. Extremities: No lower extremity edema. No calf ttp Neuro: Oriented X 3. No motor deficit. No sensory deficit. CN 2-12 intact, normal gait Psych: pos anxiety, pos SI Course Course Course Narrative: signed out to Dr. Malone pending [facility] Physician observation started at 1217am. Patient placed in physician observation because the patient needed more time for N to assess the need for inpatient psychiatry. At the time observation was started the patient's vitals were stable, patient is alert and oriented but slightly anxious, Neuro: nonfocal, CV RRR, Lungs clear MDM - Psych MDM Narrative Medical decision making narrative: 35 yo male with hx of mental health and substance abuse issues here with c/o SI and substance abuse - labs, [facility] ordered. Lab Data Result diagrams: 05/24/21 23:35 05/24/21 23:35 Labs: Lab Results 05/24/21 05/24/21 05/24/21 Range/Units 23:03 23:35 23:35 WBC 6.0 (4.8-10.8) X10*3/uL RBC 4.99 (4.60-5.80) X10*6/uL Hgb 14.9 (14.0-18.0) g/dl Hct 45.1 (42-52) % MCV 90.4 (80-98) fL MCH 29.9 (27.0-33.0) pg MCHC 33.0 (31.0-36.0) g/dl RDW 11.4 (11.0-16.0) % Plt Count TNP MPV 11.5 (9.4-12.4) fL Immature Gran % (Auto) 0.7 H (0.0-0.4) % Neut % (Auto) 65.2 (45-73) % Lymph % (Auto) 24.0 (20-40) % [place] % (Auto) 4.6 (2-11) % Eos % (Auto) 4.5 H (0-4) % Baso % (Auto) 1.0 (0-2) % Lymph # (Auto) 1.5 (1.2-4.9) X10*3/uL [place] # (Auto) 0.3 (0.1-1.2) X10*3/uL Eos # (Auto) 0.3 (0.0-0.4) X10*3/uL Baso # (Auto) 0.1 (0.0-0.2) X10*3/uL Abs Immat Gran (auto) 0.04 H (0.00-0.03) X10*3/uL Absolute Neuts (auto) 3.9 (2.0-8.3) X10*3/uL Absolute Nucleated RBC 0.000 (0.0-0.012) X10*3/uL Nucleated RBC % (auto) 0.0 (0.0-0.2) /100WBC Smear Tech's Comments VERIFIED Sodium (135-145) mmol/L Potassium (3.3-5.1) mmol/L Chloride (96-108) mmol/L Carbon Dioxide (22-29) mmol/L Anion Gap (12-20) BUN (9-16) mg/dL Creatinine (0.5-1.4) mg/dL Estim Creat Clear Calc Estimated GFR Random Glucose (60-115) mg/dL Calcium (8.4-10.2) mg/dL Total Bilirubin (0.0-1.0) mg/dL Direct Bilirubin (0.0-0.5) mg/dL AST (5-37) U/L ALT (0-40) U/L Alkaline Phosphatase (39-117) U/L Total Protein (6.5-8.0) g/dL Albumin (3.5-5.0) g/dL Urine Opiates Screen (Not Detect) Ur Barbiturates Screen (Not Detect) Ur Phencyclidine Scrn (Not Detect) Ur Amphetamines Screen (Not Detect) U Benzodiazepines Scrn (Not Detect) Urine Cocaine Screen (Not Detect) U Marijuana (THC) Screen (Not Detect) Ethyl Alcohol < 10 mg/dL COVID-19 (NAY) Negative (Negative) COVID-19 Clin Com See Note 05/24/21 05/24/21 Range/Units 23:35 Unknown WBC (4.8-10.8) X10*3/uL RBC (4.60-5.80) X10*6/uL Hgb (14.0-18.0) g/dl Hct (42-52) % MCV (80-98) fL MCH (27.0-33.0) pg MCHC (31.0-36.0) g/dl RDW (11.0-16.0) % Plt Count MPV (9.4-12.4) fL Immature Gran % (Auto) (0.0-0.4) % Neut % (Auto) (45-73) % Lymph % (Auto) (20-40) % [place] % (Auto) (2-11) % Eos % (Auto) (0-4) % Baso % (Auto) (0-2) % Lymph # (Auto) (1.2-4.9) X10*3/uL [place] # (Auto) (0.1-1.2) X10*3/uL Eos # (Auto) (0.0-0.4) X10*3/uL Baso # (Auto) (0.0-0.2) X10*3/uL Abs Immat Gran (auto) (0.00-0.03) X10*3/uL Absolute Neuts (auto) (2.0-8.3) X10*3/uL Absolute Nucleated RBC (0.0-0.012) X10*3/uL Nucleated RBC % (auto) (0.0-0.2) /100WBC Smear Tech's Comments Sodium 141 (135-145) mmol/L Potassium 4.0 (3.3-5.1) mmol/L Chloride 108 (96-108) mmol/L Carbon Dioxide 25 (22-29) mmol/L Anion Gap 12 (12-20) BUN 13 (9-16) mg/dL Creatinine 1.11 (0.5-1.4) mg/dL Estim Creat Clear Calc 89.3 Estimated GFR > 60 Random Glucose 89 (60-115) mg/dL Calcium 9.5 (8.4-10.2) mg/dL Total Bilirubin 0.8 (0.0-1.0) mg/dL Direct Bilirubin 0.3 (0.0-0.5) mg/dL AST 23 D (5-37) U/L ALT 18 (0-40) U/L Alkaline Phosphatase 53 (39-117) U/L Total Protein 7.0 D (6.5-8.0) g/dL Albumin 4.8 D (3.5-5.0) g/dL Urine Opiates Screen POSITIVE H (Not Detect) Ur Barbiturates Screen Not Detected (Not Detect) Ur Phencyclidine Scrn Not Detected (Not Detect) Ur Amphetamines Screen Not Detected (Not Detect) U Benzodiazepines Scrn Not Detected (Not Detect) Urine Cocaine Screen Not Detected (Not Detect) U Marijuana (THC) Screen POSITIVE H (Not Detect) Ethyl Alcohol mg/dL COVID-19 (NAY) (Negative) COVID-19 Clin Com Discharge Plan Discharge Clinical Impression: Polysubstance abuse Depression Qualifiers: Depression Type: other depression Qualified Code(s): F32.89 - Other specified depressive episodes Prescriptions: No Action Fleet Enema 19-7 gram/118 mL enema 118 ml [place] DAILY 2 Days RF: 0 polyethylene glycol 3350 [Miralax] 17 gram/dose powder 17 g PO DAILY PRN (Reason: constipation) Qty: 119 RF: 0 prednisone 20 mg tablet 40 mg PO DAILY 5 Days Qty: 10 RF: 0 albuterol sulfate 90 mcg/actuation HFA aerosol inhaler 2 puff inhalation QID PRN (Reason: shortness of breath or wheezing) Qty: 6.7 RF: 0 clonidine HCl 0.2 mg tablet 0.1 mg PO Q8H Qty: 10 RF: 0 ondansetron 4 mg tablet,disintegrating 4 mg PO Q8H PRN (Reason: nausea and vomiting) 5 Days Qty: 15 RF: 0 clindamycin HCl 300 mg capsule 300 mg PO BID 7 Days Qty: 14 RF: 0 ibuprofen 800 mg tablet 800 mg PO Q8H PRN (Reason: pain) Qty: 30 RF: 0 clindamycin HCl 300 mg capsule 300 mg PO TID 7 Days Qty: 21 RF: 0 azithromycin [Zithromax Z-Clayton] 250 mg tablet See Rx Instructions .ROUTE .COMPLEX Qty: 6 RF: 0
[2021-05-24 23:00] VITALS: BP 120/76; PULSE 95; RESP 18; TEMP 36.9; O2SAT 99; BMI 20.9
[2021-05-24] MEDS: LORazepam 1 MG TABLET 2 MG PO (23:21)
[2021-05-24 23:22] LABS: COVID-19 Test Negative (Negative)
[2021-05-24 23:42] LABS: Basophils Absolute Auto 0.1 X10*3/uL (0.0-0.2); Eosinophils Absolute Auto 0.3 X10*3/uL (0.0-0.4); Eosinophils Percent Auto 4.5 % (0-4); Hematocrit 45.1 % (42-52); Hemoglobin 14.9 g/dl (14.0-18.0); Imm Gran Abs Auto 0.04 X10*3/uL (0.00-0.03); Imm Gran Pct Auto 0.7 % (0.0-0.4); Lymphocytes Absolute Auto 1.5 X10*3/uL (1.2-4.9); MANUAL DIFF FLAG SCAN; Mean Corpuscular Hemoglobin 29.9 pg (27.0-33.0); Mean Corpuscular Volume 90.4 fL (80-98); Mean Platelet Volume 11.5 fL (9.4-12.4); Monocytes Absolute Auto 0.3 X10*3/uL (0.1-1.2); Monocytes Percent Auto 4.6 % (2-11); Neutrophils Absolute Auto 3.9 X10*3/uL (2.0-8.3); Neutrophils Percent Auto 65.2 % (45-73); PLT CLUMP 1; Red Blood Count 4.99 X10*6/uL (4.60-5.80); Red Cell Distribution Width 11.4 % (11.0-16.0); SCAN SMEAR FLAG 1
[2021-05-24 23:46] LABS: SLIDE REVIEW VERIFIED
[2021-05-24 23:58] LABS: Alanine Aminotransferase 18 U/L (0-40); Albumin Level 4.8 g/dL (3.5-5.0); Alkaline Phosphatase 53 U/L (39-117); Anion Gap 12 (12-20); Aspartate Amino Transferase 23 U/L (5-37); Bilirubin Direct 0.3 mg/dL (0.0-0.5); Bilirubin Total 0.8 mg/dL (0.0-1.0); Blood Urea Nitrogen 13 mg/dL (9-16); Calcium 9.5 mg/dL (8.4-10.2); Carbon Dioxide 25 mmol/L (22-29); Chloride 108 mmol/L (96-108); Creatinine Clr Calc Pharmacy 89.3; Estimated Glomerular Filt Rate > 60; Glucose Random 89 mg/dL (60-115); Sodium 141 mmol/L (135-145)
[2021-05-25 00:02] LABS: Ethanol < 10 mg/dL
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
[2021-05-25 01:44] LABS: Amphetamine Screen Urine Not Detected (Not Detect); Barbiturates, Urine Not Detected (Not Detect); Benzodiazepines Screen Urine Not Detected (Not Detect); Cannabinoid Screen Urine POSITIVE (Not Detect); Cocaine Screen Urine Not Detected (Not Detect); Fentanyl, urine POSITIVE (Not Detect); Opiate Screen Urine POSITIVE (Not Detect); Phencyclidine Screen Urine Not Detected (Not Detect)
--- NOTE | 2021-05-25 06:22 | PC.NURSE ---
Patient slept through the night, no distress observed/reported, med compliant, patient is not on any medication this time, patient got assessed by care, patient's disposition per care team is inpatient dual bed search, behavior appropriate, will continue to monitor.
--- NOTE | 2021-05-25 07:10 | PC.NURSE ---
patient appears to remain at rest at present, respirations are even and unlabored, patient appears in no distress
[2021-05-25 08:55] VITALS: BP 107/69; PULSE 64; RESP 16; O2SAT 97
[2021-05-25] MEDS: methADONE HCl 20 MG/2 ML ORAL.CONC 90 MG PO (10:33)
[2021-05-25 13:29] VITALS: BP 118/64; PULSE 61; RESP 16; O2SAT 98
[2021-05-25] MEDS: Nicotine 21 MG PATCH.TD24 TRANSDERMA (16:22)
[2021-05-25 18:00] VITALS: BP 120/61; PULSE 88; RESP 18; TEMP 37.1; O2SAT 98
[2021-05-25] MEDS: clonazePAM 1 MG TABLET PO ×2 (18:18→21:00)
[2021-05-25] MEDS: hydrOXYzine HCL 25 MG TABLET PO (18:19)
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
[2021-05-26] MEDS: clonazePAM 1 MG TABLET PO ×4 (00:07→20:58)
[2021-05-26] MEDS: traZODone HCL 50 MG TABLET PO (00:07)
[2021-05-26] MEDS: Nicotine Polacrilex 2 MG GUM 4 MG BUCCAL (03:56)
[2021-05-26 04:00] VITALS: BP 118/69; PULSE 64; RESP 16; TEMP 36.9; O2SAT 99
[2021-05-26] MEDS: methADONE HCl 20 MG/2 ML ORAL.CONC 90 MG PO (08:23)
[2021-05-26] MEDS: Nicotine 21 MG PATCH.TD24 TRANSDERMA (08:26)
--- NOTE | 2021-05-26 13:33 | MHC.CLN ---
NUTRITION PATIENT REPORTS 15# WEIGHT LOSS X 4 MONTHS, -9.1%. 87% IBW. REPORTS NO APPETITE X 2 DAYS. OFFERED ENSURE SUPPLEMENT. WOULD LIKE ENSURE TID TO PROVIDE 1050 KCAL, 60 G PROTEIN.
[2021-05-26 13:36] VITALS: BMI 20.9
[2021-05-26] MEDS: OLANZapine 5 MG TABLET PO (13:38)
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
[2021-05-26] MEDS: OLANZapine ODT 10 MG TAB.RAPDIS TRANSLINGU (20:58)
[2021-05-27] MEDS: OLANZapine ODT 10 MG TAB.RAPDIS TRANSLINGU ×3 (00:04→22:33)
[2021-05-27] MEDS: hydrOXYzine HCL 25 MG TABLET PO ×3 (00:04→22:33)
[2021-05-27] MEDS: OLANZapine 5 MG TABLET PO ×4 (05:15→21:42)
[2021-05-27 07:50] VITALS: BP 101/66; PULSE 72; RESP 18; TEMP 36.9; O2SAT 97
[2021-05-27] MEDS: Nicotine Polacrilex 2 MG GUM 4 MG BUCCAL (07:53)
[2021-05-27] MEDS: clonazePAM 1 MG TABLET PO ×4 (07:53→20:21)
[2021-05-27] MEDS: methADONE HCl 20 MG/2 ML ORAL.CONC 90 MG PO (08:37)
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
[2021-05-27 18:00] VITALS: BP 105/62; PULSE 86; RESP 18; TEMP 36.9; O2SAT 99
[2021-05-27 21:26] VITALS: BP 105/60; PULSE 86
[2021-05-27] MEDS: cloNIDine HCL 0.1 MG TABLET PO (21:26)
[2021-05-28] MEDS: clonazePAM 1 MG TABLET PO ×4 (01:57→20:03)
[2021-05-28] MEDS: OLANZapine 5 MG TABLET PO ×3 (05:45→23:43)
[2021-05-28 05:46] VITALS: BP 119/71; PULSE 80
[2021-05-28] MEDS: cloNIDine HCL 0.1 MG TABLET PO ×3 (05:46→20:02)
[2021-05-28] MEDS: hydrOXYzine HCL 25 MG TABLET PO ×4 (05:46→22:06)
[2021-05-28 08:05] VITALS: BP 99/53; PULSE 68; RESP 18; TEMP 36.6; O2SAT 99
[2021-05-28] MEDS: methADONE HCl 20 MG/2 ML ORAL.CONC 90 MG PO (08:16)
[2021-05-28] MEDS: OLANZapine 10 MG TABLET PO (08:50)
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
[2021-05-28] MEDS: Lithium Carbonate ER 450 MG TABLET.ER PO ×2 (15:47→20:03)
--- NOTE | 2021-05-28 15:49 | MHC.CLN ---
F/U REPORTS THAT HAS APPETITE IN THE MORNING, BUT NOT AT LUNCH AND SUPPER. CONTINUE WITH REGULAR DIET AND ENSURE SUPPLEMENT TID (1050 KCAL, 60 G PROTEIN).
[2021-05-28] MEDS: chlorproMAZINE HCl 100 MG TABLET PO (16:32)
[2021-05-28 18:18] VITALS: BP 118/58; PULSE 68
[2021-05-28 20:02] VITALS: BP 110/72; PULSE 98
[2021-05-28] MEDS: OLANZapine ODT 10 MG TAB.RAPDIS TRANSLINGU ×2 (20:03→22:06)
[2021-05-28 20:16] VITALS: BP 110/72; PULSE 94; TEMP 36.7; O2SAT 95
[2021-05-28] MEDS: Dicyclomine HCl 10 MG CAPSULE PO (22:06)
--- NOTE | 2021-05-29 | ECG_ITS ---
Test Reason : QTc prolongation Blood Pressure : / mmHG Vent. Rate : 062 BPM Atrial Rate : 062 BPM P-R Int : 182 ms QRS Dur : 086 ms QT Int : 436 ms P-R-T Axes : 066 047 049 degrees QTc Int : 442 ms Normal sinus rhythm Normal ECG When compared with ECG of 04-MAY-2021 09:46, No significant change was found Referred By: Elias Dennison Electronically Signed By:HENRY PAYAN
[2021-05-29] MEDS: OLANZapine 5 MG TABLET PO ×2 (04:01→17:13)
[2021-05-29] MEDS: hydrOXYzine HCL 25 MG TABLET PO ×2 (04:01→20:34)
--- NOTE | 2021-05-29 04:49 | PC.NURSE ---
pt oob at 0400 c/o increased paranoia and anxiety. additional prn medication given zyprexa/vistaril. reports not effective for paranoia. tiger text sent to [facility]eon [facility]call center director.
[2021-05-29] MEDS: Benztropine Mesylate 1 MG TABLET PO ×3 (06:23→17:13)
[2021-05-29] MEDS: HaloperidoL 5 MG TABLET PO ×4 (06:23→21:37)
[2021-05-29 07:50] VITALS: BP 103/64; PULSE 70; RESP 16; TEMP 36.3; O2SAT 98
[2021-05-29] MEDS: Nicotine Polacrilex 2 MG GUM 4 MG BUCCAL (08:01)
[2021-05-29] MEDS: Lithium Carbonate ER 450 MG TABLET.ER PO ×2 (08:02→20:34)
[2021-05-29] MEDS: clonazePAM 1 MG TABLET PO ×3 (08:02→20:34)
--- NOTE | 2021-05-29 08:15 | HO.PSYCHPN ---
Subjective Subjective Date of Service: 05/29/21 Reason For Visit: SI Interim History: Patient was seen in rounds today. Records were reviewed. He continues to feel anxious more specifically around the Klonopin taper. He had been on 12 mg a day for a couple of months, on his own prior to coming in. He is on 3 mg currently. This morning he was agitated and somewhat aggressive. He stated that Thorazine Zyprexa are not helpful to in but Haldol is. I did order Haldol 5 mg t.i.d. p.r.n.. I will leave the Zyprexa will order on for now but discontinue the Seroquel order. Sleeping adequately, especially last night he slept quite well. No other changes were made today. Because of the medications he is on an EKG was ordered to rule out any QTC prolongation Medication Compliance: Yes Side effects from medications: No Review of Systems Acute medical concerns: No Review of Systems Review of Systems Yes all other systems are reviewed and are negative Mental Status Exam Mental Status Exam Narrative: In today's visit he is alert, oriented and pleasant. Normal speech. Moderate eye contact. Affect is appropriate and constricted. No signs of psychosis. No SI upon inquiry. Cognitively intact. Judgment is intact Diagnostics Vital Signs (24Hr): Vital Signs - 24 hr 05/28/21 18:18 05/28/21 20:02 05/28/21 20:16 Temperature 98.0 F Pulse Rate 68 98 94 Blood Pressure 118/58 L 110/72 110/72 Pulse Oximetry 95 Body Mass Index 20.9 Labs Results: 05/24/21 23:35 05/24/21 23:35 Medications Medications Current Medications Acetaminophen (Acetaminophen 325 Mg Tablet) 650 mg PO Q6H PRN PRN Reason: Headache/Pain Mild Scale (1-3) Al Hydroxide/Mg Hydroxide (Magnesium Hydrox/Alum Hydrox 30 Ml Oral.Susp) 30 ml PO Q6H PRN PRN Reason: Heartburn/Nausea Benztropine Mesylate (Benztropine Mesylate 1 Mg Tablet) 1 mg PO Q4H PRN PRN Reason: EPS Last Admin: 05/29/21 06:23 Dose: 1 mg Documented by: Clonazepam (Clonazepam 1 Mg Tablet) 1 mg PO TID GENARO Stop: 05/30/21 06:00 Last Admin: 05/29/21 08:02 Dose: 1 mg Documented by: Clonazepam (Clonazepam 1 Mg Tablet) 1 mg PO BID [facility] Stop: 06/01/21 06:00 Clonazepam (Clonazepam 0.5 Mg Tablet) 0.5 mg PO BID [facility] Stop: 06/03/21 06:00 Clonidine HCl (Clonidine Hcl 0.1 Mg Tablet) 0.1 mg PO Q2H PRN; Protocol PRN Reason: opioid withdrawal Last Admin: 05/28/21 20:02 Dose: 0.1 mg Documented by: Dicyclomine HCl (Dicyclomine Hcl 10 Mg Capsule) 10 mg PO QIDACHS PRN PRN Reason: stomach cramps Last Admin: 05/28/21 22:06 Dose: 10 mg Documented by: Haloperidol (Haloperidol 5 Mg Tablet) 5 mg PO Q4H PRN PRN Reason: Anxiety Last Admin: 05/29/21 06:23 Dose: 5 mg Documented by: Hydroxyzine HCl (Hydroxyzine Hcl 25 Mg Tablet) 25 mg PO BEDTIME PRN PRN Reason: Anxiety Last Admin: 05/28/21 22:06 Dose: 25 mg Documented by: Hydroxyzine HCl (Hydroxyzine Hcl 25 Mg Tablet) 25 mg PO RQ4H PRN PRN Reason: Anxiety Last Admin: 05/29/21 04:01 Dose: 25 mg Documented by: [place] Carbonate ([place] Carbonate Er 450 Mg Tablet.Er) 450 mg PO BID [facility] Last Admin: 05/29/21 08:02 Dose: 450 mg Documented by: Loperamide HCl (Loperamide Hcl 2 Mg Capsule) 2 mg PO DAILY PRN PRN Reason: diarrhea Magnesium Hydroxide (Milk Of Magnesia 30 Ml Oral.Susp) 30 ml PO DAILY PRN PRN Reason: Constipation Methadone HCl (Methadone Hcl 20 Mg/2 Ml Oral.Conc) 90 mg PO DAILY [facility] Last Admin: 05/28/21 08:16 Dose: 90 mg Documented by: Nicotine (Nicotine 21 Mg Patch.Td24) 21 mg TRANSDERMA DAILY [facility] Last Admin: 05/29/21 08:06 Dose: Not Given Documented by: Nicotine Polacrilex (Nicotine Polacrilex 2 Mg Gum) 4 mg BUCCAL Q2H PRN PRN Reason: Nicotine Cravings Last Admin: 05/29/21 08:01 Dose: 4 mg Documented by: Olanzapine (Olanzapine Odt 10 Mg Tab.Rapdis) 10 mg TRANSLINGU BEDTIME [facility] Last Admin: 05/28/21 20:03 Dose: 10 mg Documented by: Olanzapine (Olanzapine Odt 10 Mg Tab.Rapdis) 10 mg TRANSLINGU BEDTIME PRN PRN Reason: insomnia Last Admin: 05/28/21 22:06 Dose: 10 mg Documented by: Olanzapine (Olanzapine 5 Mg Tablet) 5 mg PO Q4H PRN PRN Reason: agitation Last Admin: 05/29/21 04:01 Dose: 5 mg Documented by: Allergies Allergies Allergy/AdvReac Type Severity Reaction Status Date / Time mayonnaise [MAYONNAISE] Allergy Intermediate THROAT AND Verified 05/12/21 00:16 TONGUE ITCH quetiapine [From SEROQUEL] Allergy Intermediate DYSTONIA Verified 05/12/21 00:16 cat dander [CATS] Allergy Unknown WATERY Verified 05/12/21 00:16 EYES, SNEEZING dog dander [DOG] Allergy Unknown UNKNOWN Verified 05/12/21 00:16 paroxetine [From PAXIL] Allergy Unknown FLU LIKE Verified 05/12/21 00:16 SYMPTOMS penicillin V Allergy Unknown Unknown Verified 05/12/21 00:16 Penicillins [PENICILLINS] Allergy Unknown SWELLING Verified 05/12/21 00:16 SEAFOOD Allergy Severe DIFFICULTY Uncoded 05/12/21 00:16 BREATHING Assessment & Plan Assessment & Plan (1) Polysubstance abuse: Status: Acute Code(s): F19.10 - Other psychoactive substance abuse, uncomplicated Assessment and Plan: Continue current regimen with addition of Haldol 5 mg t.i.d. p.r.n. for agitation (2) Depression: Qualifiers: Depression Type: other depression Qualified Code(s): F32.89 - Other specified depressive episodes Status: Acute Code(s): F32.9 - Major depressive disorder, single episode, unspecified (3) PTSD (post-traumatic stress disorder): Status: Acute Code(s): F43.10 - Post-traumatic stress disorder, unspecified Assessment and Plan: 1) PSD - CIWA protocol no longer needed as of 05/28. klonopin taper for benzo dependence. methadone at outpt dose with PRNs for breakthrough Sx for opioid dependence. 2) depression/PTSD - zyprexa PRNs of 5 during the day and 10 scheduled at HS for anxiety/agitation/racing thoughts. once pt more comfortable in detox will investigate other options for depression and PTSD Tx. 3) dispo - pending inpt stabilization. pt not interested in rehab/PHP/IOP. would like to discharge home and do AA once stable. Greater than 50% of the session was spent on counseling and/or coordination of care Reason for contiued inpatient stay Substantial Risk for: med/psych decompensation and other
[2021-05-29] MEDS: methADONE HCl 20 MG/2 ML ORAL.CONC 90 MG PO (08:20)
[2021-05-29 20:20] VITALS: BP 112/68; PULSE 77; RESP 16; TEMP 36.4; O2SAT 97
[2021-05-29] MEDS: OLANZapine ODT 10 MG TAB.RAPDIS TRANSLINGU ×3 (20:35→23:04)
[2021-05-30] MEDS: Benztropine Mesylate 1 MG TABLET PO (03:00)
[2021-05-30] MEDS: HaloperidoL 5 MG TABLET PO ×3 (03:00→20:02)
[2021-05-30] MEDS: OLANZapine 5 MG TABLET PO ×2 (05:36→17:31)
[2021-05-30] MEDS: hydrOXYzine HCL 25 MG TABLET PO (05:36)
--- NOTE | 2021-05-30 07:54 | P.PNPSI_ITS ---
Subjective Subjective Date of Service: 05/30/21 Reason For Visit: SI Interim History: Patient was seen in rounds today. He has been using the Haldol fairly regularly and a Cogentin with it. We discussed the fact that he does not need to take Cogentin automatically. In fact I actually decreased the dose to 0.5 mg q.4 hours p.r.n.. He continues to sleep some during the day after he harry es his methadone and into our blocks . He is eating adequately. No complaints or side effects. He talked about his ?ADHD?. No other changes were made today Review of Systems Review of Systems Yes all other systems are reviewed and are negative Mental Status Exam Mental Status Exam Narrative: In today's visit he is alert, oriented and pleasant. Speech is slightly slurred. Moderate eye contact. Affect is appropriate and constricted. No signs of psychosis. No SI upon inquiry. Cognitively intact. Judgment is intact Diagnostics Vital Signs (24Hr): Vital Signs - 24 hr 05/29/21 20:20 Temperature 97.6 F Pulse Rate 77 Respiratory Rate 16 Blood Pressure 112/68 Pulse Oximetry 97 Body Mass Index 20.9 Labs Results: 05/24/21 23:35 05/24/21 23:35 Medications Medications Current Medications Acetaminophen (Acetaminophen 325 Mg Tablet) 650 mg PO Q6H PRN PRN Reason: Headache/Pain Mild Scale (1-3) Al Hydroxide/Mg Hydroxide (Magnesium Hydrox/Alum Hydrox 30 Ml Oral.Susp) 30 ml PO Q6H PRN PRN Reason: Heartburn/Nausea Benztropine Mesylate (Benztropine Mesylate 0.5 Mg Tablet) 0.5 mg PO Q4H PRN PRN Reason: EPS Clonazepam (Clonazepam 1 Mg Tablet) 1 mg PO BID [facility] Stop: 06/01/21 06:00 Clonazepam (Clonazepam 0.5 Mg Tablet) 0.5 mg PO BID [facility] Stop: 06/03/21 06:00 Clonidine HCl (Clonidine Hcl 0.1 Mg Tablet) 0.1 mg PO Q2H PRN; Protocol PRN Reason: opioid withdrawal Last Admin: 05/28/21 20:02 Dose: 0.1 mg Documented by: Dicyclomine HCl (Dicyclomine Hcl 10 Mg Capsule) 10 mg PO QIDACHS PRN PRN Reason: stomach cramps Last Admin: 05/28/21 22:06 Dose: 10 mg Documented by: Haloperidol (Haloperidol 5 Mg Tablet) 5 mg PO Q4H PRN PRN Reason: Anxiety Last Admin: 05/30/21 03:00 Dose: 5 mg Documented by: Hydroxyzine HCl (Hydroxyzine Hcl 25 Mg Tablet) 25 mg PO BEDTIME PRN PRN Reason: Anxiety Last Admin: 05/29/21 20:34 Dose: 25 mg Documented by: Hydroxyzine HCl (Hydroxyzine Hcl 25 Mg Tablet) 25 mg PO RQ4H PRN PRN Reason: Anxiety Last Admin: 05/30/21 05:36 Dose: 25 mg Documented by: [place] Carbonate ([place] Carbonate Er 450 Mg Tablet.Er) 450 mg PO BID [facility] Last Admin: 05/29/21 20:34 Dose: 450 mg Documented by: Loperamide HCl (Loperamide Hcl 2 Mg Capsule) 2 mg PO DAILY PRN PRN Reason: diarrhea Magnesium Hydroxide (Milk Of Magnesia 30 Ml Oral.Susp) 30 ml PO DAILY PRN PRN Reason: Constipation Methadone HCl (Methadone Hcl 20 Mg/2 Ml Oral.Conc) 90 mg PO DAILY [facility] Last Admin: 05/29/21 08:20 Dose: 90 mg Documented by: Nicotine (Nicotine 21 Mg Patch.Td24) 21 mg TRANSDERMA DAILY [facility] Last Admin: 05/29/21 08:06 Dose: Not Given Documented by: Nicotine Polacrilex (Nicotine Polacrilex 2 Mg Gum) 4 mg BUCCAL Q2H PRN PRN Reason: Nicotine Cravings Last Admin: 05/29/21 08:01 Dose: 4 mg Documented by: Olanzapine (Olanzapine Odt 10 Mg Tab.Rapdis) 10 mg TRANSLINGU BEDTIME [facility] Last Admin: 05/29/21 20:36 Dose: 10 mg Documented by: Olanzapine (Olanzapine Odt 10 Mg Tab.Rapdis) 10 mg TRANSLINGU BEDTIME PRN PRN Reason: insomnia Last Admin: 05/29/21 23:04 Dose: 10 mg Documented by: Olanzapine (Olanzapine 5 Mg Tablet) 5 mg PO Q4H PRN PRN Reason: agitation Last Admin: 05/30/21 05:36 Dose: 5 mg Documented by: Allergies Allergies Allergy/AdvReac Type Severity Reaction Status Date / Time mayonnaise [MAYONNAISE] Allergy Intermediate THROAT AND Verified 05/12/21 00:16 TONGUE ITCH quetiapine [From SEROQUEL] Allergy Intermediate DYSTONIA Verified 05/12/21 00:16 cat dander [CATS] Allergy Unknown WATERY Verified 05/12/21 00:16 EYES, SNEEZING dog dander [DOG] Allergy Unknown UNKNOWN Verified 05/12/21 00:16 paroxetine [From PAXIL] Allergy Unknown FLU LIKE Verified 05/12/21 00:16 SYMPTOMS penicillin V Allergy Unknown Unknown Verified 05/12/21 00:16 Penicillins [PENICILLINS] Allergy Unknown SWELLING Verified 05/12/21 00:16 SEAFOOD Allergy Severe DIFFICULTY Uncoded 05/12/21 00:16 BREATHING Assessment & Plan Assessment & Plan (1) Polysubstance abuse: Status: Acute Code(s): F19.10 - Other psychoactive substance abuse, uncomplicated Assessment and Plan: Continue current regimen with addition of Haldol 5 mg t.i.d. p.r.n. for agitation (2) Depression: Qualifiers: Depression Type: other depression Qualified Code(s): F32.89 - Other specified depressive episodes Status: Acute Code(s): F32.9 - Major depressive disorder, single episode, unspecified (3) PTSD (post-traumatic stress disorder): Status: Acute Code(s): F43.10 - Post-traumatic stress disorder, unspecified Assessment and Plan: 1) PSD - CIWA protocol no longer needed as of 05/28. klonopin taper for benzo dependence. methadone at outpt dose with PRNs for breakthrough Sx for opioid dependence. 2) depression/PTSD - zyprexa PRNs of 5 during the day and 10 scheduled at HS for anxiety/agitation/racing thoughts. once pt more comfortable in detox will investigate other options for depression and PTSD Tx. 3) dispo - pending inpt stabilization. pt not interested in rehab/PHP/IOP. would like to discharge home and do AA once stable. Continue current regimen and plans. Cogentin was decreased and encouraged to use every time he takes Haldol Greater than 50% of the session was spent on counseling and/or coordination of care Reason for contiued inpatient stay Substantial Risk for: other
[2021-05-30 07:55] VITALS: BP 110/64; PULSE 73; RESP 16; TEMP 36.6; O2SAT 98
[2021-05-30] MEDS: Lithium Carbonate ER 450 MG TABLET.ER PO ×2 (08:00→20:02)
[2021-05-30] MEDS: methADONE HCl 20 MG/2 ML ORAL.CONC 90 MG PO (08:00)
[2021-05-30] MEDS: clonazePAM 1 MG TABLET PO ×2 (08:00→20:02)
[2021-05-30] MEDS: Nicotine Polacrilex 2 MG GUM 4 MG BUCCAL (08:01)
[2021-05-30] MEDS: Benztropine Mesylate 0.5 MG TABLET PO (12:51)
[2021-05-30] MEDS: Ondansetron ODT 8 MG TAB.RAPDIS TRANSLINGU (14:28)
[2021-05-30 14:34] VITALS: BP 108/73; PULSE 85; RESP 16; TEMP 36.7; O2SAT 96
[2021-05-30 18:00] VITALS: BP 125/69; PULSE 76; RESP 20; TEMP 36.6; O2SAT 98
[2021-05-30] MEDS: OLANZapine ODT 10 MG TAB.RAPDIS TRANSLINGU (20:03)
[2021-05-31] MEDS: HaloperidoL 5 MG TABLET PO ×5 (00:03→20:14)
[2021-05-31] MEDS: hydrOXYzine HCL 25 MG TABLET PO ×5 (00:03→22:51)
[2021-05-31] MEDS: OLANZapine ODT 10 MG TAB.RAPDIS TRANSLINGU ×2 (02:49→21:41)
[2021-05-31 08:07] VITALS: BP 126/75; PULSE 72; RESP 16; TEMP 36.9; O2SAT 98
[2021-05-31] MEDS: clonazePAM 1 MG TABLET PO ×2 (08:12→20:14)
[2021-05-31] MEDS: methADONE HCl 20 MG/2 ML ORAL.CONC 90 MG PO (08:13)
[2021-05-31] MEDS: Nicotine 21 MG PATCH.TD24 TRANSDERMA (08:13)
[2021-05-31] MEDS: Lithium Carbonate ER 450 MG TABLET.ER PO ×2 (08:13→20:13)
[2021-05-31] MEDS: OLANZapine 5 MG TABLET PO ×2 (12:37→22:51)
[2021-05-31 12:38] VITALS: BP 110/68; PULSE 75
[2021-05-31] MEDS: cloNIDine HCL 0.1 MG TABLET PO (12:38)
--- NOTE | 2021-05-31 13:14 | P.PNPSI_ITS ---
Subjective Subjective Date of Service: 05/31/21 Reason For Visit: SI Interim History: pt reports feeling substantially better than previous. not completely better, but substantially better. does state he continues to have some difficulty sleeping and asks for HS regimen to be increased. agrees to have zyprexa increased from 10 mg QHS to 15 mg QHS. aware will need to draw labs weds morning for lithium level. per staff, not attending groups. sleeping during the day, not much at night. vomited yesterday. believe haldol and hydroxyzine are helping a lot. will check lithium level weds morning. Mental Status Exam Mental Status Exam Narrative: appropriately dressed and groomed. somewhat somnolent or sedated. cooperative. PMR. poor eye contact. speech slowed, soft, decreased in amount. reduced prosody. thoughts linear and logical. affect constricted, hypo- intense, non-labile. mood much better. no SI/HI/AVH expressed. Diagnostics Vital Signs (24Hr): Vital Signs - 24 hr 05/30/21 14:34 05/30/21 18:00 05/31/21 08:07 Temperature 98.0 F 97.9 F 98.5 F Pulse Rate 85 76 72 Respiratory Rate 16 20 16 Blood Pressure 108/73 125/69 126/75 Pulse Oximetry 96 98 98 05/31/21 12:38 Temperature Pulse Rate 75 Respiratory Rate Blood Pressure 110/68 Pulse Oximetry Body Mass Index 20.9 Labs Results: 05/24/21 23:35 05/24/21 23:35 Medications Medications Current Medications Acetaminophen (Acetaminophen 325 Mg Tablet) 650 mg PO Q6H PRN PRN Reason: Headache/Pain Mild Scale (1-3) Al Hydroxide/Mg Hydroxide (Magnesium Hydrox/Alum Hydrox 30 Ml Oral.Susp) 30 ml PO Q6H PRN PRN Reason: Heartburn/Nausea Benztropine Mesylate (Benztropine Mesylate 0.5 Mg Tablet) 0.5 mg PO Q4H PRN PRN Reason: EPS Last Admin: 05/30/21 12:51 Dose: 0.5 mg Documented by: Clonazepam (Clonazepam 1 Mg Tablet) 1 mg PO BID [facility] Stop: 06/01/21 06:00 Last Admin: 05/31/21 08:12 Dose: 1 mg Documented by: Clonazepam (Clonazepam 0.5 Mg Tablet) 0.5 mg PO BID [facility] Stop: 06/03/21 06:00 Clonidine HCl (Clonidine Hcl 0.1 Mg Tablet) 0.1 mg PO Q2H PRN; Protocol PRN Reason: opioid withdrawal Last Admin: 05/31/21 12:38 Dose: 0.1 mg Documented by: Dicyclomine HCl (Dicyclomine Hcl 10 Mg Capsule) 10 mg PO QIDACHS PRN PRN Reason: stomach cramps Last Admin: 05/28/21 22:06 Dose: 10 mg Documented by: Haloperidol (Haloperidol 5 Mg Tablet) 5 mg PO Q4H PRN PRN Reason: Anxiety Last Admin: 05/31/21 12:37 Dose: 5 mg Documented by: Hydroxyzine HCl (Hydroxyzine Hcl 25 Mg Tablet) 25 mg PO BEDTIME PRN PRN Reason: Anxiety Last Admin: 05/31/21 00:03 Dose: 25 mg Documented by: Hydroxyzine HCl (Hydroxyzine Hcl 25 Mg Tablet) 25 mg PO RQ4H PRN PRN Reason: Anxiety Last Admin: 05/31/21 02:49 Dose: 25 mg Documented by: [place] Carbonate ([place] Carbonate Er 450 Mg Tablet.Er) 450 mg PO BID [facility] Last Admin: 05/31/21 08:13 Dose: 450 mg Documented by: Loperamide HCl (Loperamide Hcl 2 Mg Capsule) 2 mg PO DAILY PRN PRN Reason: diarrhea Magnesium Hydroxide (Milk Of Magnesia 30 Ml Oral.Susp) 30 ml PO DAILY PRN PRN Reason: Constipation Methadone HCl (Methadone Hcl 20 Mg/2 Ml Oral.Conc) 90 mg PO DAILY [facility] Last Admin: 05/31/21 08:13 Dose: 90 mg Documented by: Nicotine (Nicotine 21 Mg Patch.Td24) 21 mg TRANSDERMA DAILY [facility] Last Admin: 05/31/21 08:13 Dose: 21 mg Documented by: Nicotine Polacrilex (Nicotine Polacrilex 2 Mg Gum) 4 mg BUCCAL Q2H PRN PRN Reason: Nicotine Cravings Last Admin: 05/30/21 08:01 Dose: 4 mg Documented by: Olanzapine (Olanzapine Odt 10 Mg Tab.Rapdis) 10 mg TRANSLINGU BEDTIME PRN PRN Reason: insomnia Last Admin: 05/31/21 02:49 Dose: 10 mg Documented by: Olanzapine (Olanzapine 5 Mg Tablet) 5 mg PO Q4H PRN PRN Reason: agitation Last Admin: 05/31/21 12:37 Dose: 5 mg Documented by: Olanzapine (Olanzapine Odt 10 Mg Tab.Rapdis) 15 mg TRANSLINGU BEDTIME [facility] Ondansetron HCl (Ondansetron Odt 4 Mg Tab.Rapdis) 4 mg TRANSLINGU Q6H PRN PRN Reason: Nausea Allergies Allergies Allergy/AdvReac Type Severity Reaction Status Date / Time mayonnaise [MAYONNAISE] Allergy Intermediate THROAT AND Verified 05/12/21 00:16 TONGUE ITCH quetiapine [From SEROQUEL] Allergy Intermediate DYSTONIA Verified 05/12/21 00:16 cat dander [CATS] Allergy Unknown WATERY Verified 05/12/21 00:16 EYES, SNEEZING dog dander [DOG] Allergy Unknown UNKNOWN Verified 05/12/21 00:16 paroxetine [From PAXIL] Allergy Unknown FLU LIKE Verified 05/12/21 00:16 SYMPTOMS penicillin V Allergy Unknown Unknown Verified 05/12/21 00:16 Penicillins [PENICILLINS] Allergy Unknown SWELLING Verified 05/12/21 00:16 SEAFOOD Allergy Severe DIFFICULTY Uncoded 05/12/21 00:16 BREATHING Assessment & Plan Assessment & Plan (1) Polysubstance abuse: Status: Acute Code(s): F19.10 - Other psychoactive substance abuse, uncomplicated Assessment and Plan: Continue current regimen with addition of Haldol 5 mg t.i.d. p.r.n. for agitation (2) Depression: Qualifiers: Depression Type: other depression Qualified Code(s): F32.89 - Other specified depressive episodes Status: Acute Code(s): F32.9 - Major depressive disorder, single episode, unspecified (3) PTSD (post-traumatic stress disorder): Status: Acute Code(s): F43.10 - Post-traumatic stress disorder, unspecified Assessment and Plan: 1) PSD - CIWA protocol no longer needed as of 05/28. klonopin taper for benzo dependence. methadone at outpt dose with PRNs for breakthrough Sx for opioid dependence. 2) depression/PTSD - zyprexa PRNs of 5 during the day and 10 scheduled at HS for anxiety/agitation/racing thoughts. zyprexa increased to 15 @ HS as of 05/31 for insomnia. once pt more comfortable in detox will investigate other options for depression and PTSD Tx. 3) dispo - pending inpt stabilization. pt not interested in rehab/PHP/IOP. would like to discharge home and do AA once stable. check labs morning. Continue current regimen and plans. Cogentin was decreased and encouraged to use every time he takes Haldol Greater than 50% of the session was spent on counseling and/or coordination of care Reason for contiued inpatient stay Substantial Risk for: inability to function and rapid decompensation
--- NOTE | 2021-05-31 14:37 | MHC.CLN ---
F/U NOTED THAT EATING OK . SLEEPS A LOT DURING THE DAY. CONTINUE TO PROVIDE REGULAR DIET PLUS ENSURE SUPPLEMENT.
[2021-05-31] MEDS: OLANZapine ODT 10 MG TAB.RAPDIS 15 MG TRANSLINGU (20:14)
[2021-05-31 20:16] VITALS: BP 118/64; PULSE 79; TEMP 36.6; O2SAT 96
[2021-06-01] MEDS: HaloperidoL 5 MG TABLET PO ×5 (00:09→22:37)
[2021-06-01] MEDS: hydrOXYzine HCL 25 MG TABLET PO (03:51)
[2021-06-01 07:39] VITALS: BP 106/66; PULSE 65; RESP 16; TEMP 36.9; O2SAT 98
[2021-06-01] MEDS: Nicotine 21 MG PATCH.TD24 TRANSDERMA (07:40)
[2021-06-01] MEDS: methADONE HCl 20 MG/2 ML ORAL.CONC 90 MG PO (07:40)
[2021-06-01] MEDS: Lithium Carbonate ER 450 MG TABLET.ER PO ×2 (07:40→21:19)
[2021-06-01] MEDS: clonazePAM 0.5 MG TABLET PO ×2 (07:40→21:19)
[2021-06-01] MEDS: OLANZapine 5 MG TABLET PO (10:54)
--- NOTE | 2021-06-01 11:20 | HO.PSYCHPN ---
Subjective Subjective Date of Service: 06/01/21 Reason For Visit: SI Interim History: pt reports he does not feel himself, has been walking into [facility] and saying random weird stuff. suggests he may be overmedicated, as he has taken PRNs of both haldol and zyprexa this morning already. pt agrees to DC zyprexa 5 mg PRNs in favor of relying on haldol PRNs. hydroxyzine also DCed as pt reports it does not help him. pt c/o sciatic pain from DJD and asks for gabapentin. suggests we need to get his mental status cleared up a bit prior to initiating any new medications. per staff, pt vacillates between feeling the medications are helkpful and that they are inadequate. not sleeping well at night, but napping during the day. reviewed klonopin taper, now in its final two days. pt encouraged to begin discharge planning with executive secretary social welfare. Mental Status Exam Mental Status Exam Narrative: appropriately dressed and groomed. somewhat somnolent or sedated. cooperative. PMR. poor eye contact. speech slowed, soft, decreased in amount. reduced prosody. thoughts linear and logical. affect constricted, hypo-intense, non-labile. no SI/HI/AVH. expressed. Diagnostics Vital Signs (24Hr): Vital Signs - 24 hr 05/31/21 12:38 05/31/21 20:16 06/01/21 07:39 Temperature 97.9 F 98.5 F Pulse Rate 75 79 65 Respiratory Rate 16 Blood Pressure 110/68 118/64 106/66 Pulse Oximetry 96 98 Body Mass Index 20.9 Labs Results: 05/24/21 23:35 05/24/21 23:35 Medications Medications Current Medications Acetaminophen (Acetaminophen 325 Mg Tablet) 650 mg PO Q6H PRN PRN Reason: Headache/Pain Mild Scale (1-3) Al Hydroxide/Mg Hydroxide (Magnesium Hydrox/Alum Hydrox 30 Ml Oral.Susp) 30 ml PO Q6H PRN PRN Reason: Heartburn/Nausea Benztropine Mesylate (Benztropine Mesylate 0.5 Mg Tablet) 0.5 mg PO Q4H PRN PRN Reason: EPS Last Admin: 05/30/21 12:51 Dose: 0.5 mg Documented by: Clonazepam (Clonazepam 0.5 Mg Tablet) 0.5 mg PO BID [facility] Stop: 06/03/21 06:00 Last Admin: 06/01/21 07:40 Dose: 0.5 mg Documented by: Clonidine HCl (Clonidine Hcl 0.1 Mg Tablet) 0.1 mg PO Q2H PRN; Protocol PRN Reason: opioid withdrawal Last Admin: 05/31/21 12:38 Dose: 0.1 mg Documented by: Dicyclomine HCl (Dicyclomine Hcl 10 Mg Capsule) 10 mg PO QIDACHS PRN PRN Reason: stomach cramps Last Admin: 05/28/21 22:06 Dose: 10 mg Documented by: Haloperidol (Haloperidol 5 Mg Tablet) 5 mg PO Q4H PRN PRN Reason: Anxiety Last Admin: 06/01/21 09:59 Dose: 5 mg Documented by: [place] Carbonate ([place] Carbonate Er 450 Mg Tablet.Er) 450 mg PO BID [facility] Last Admin: 06/01/21 07:40 Dose: 450 mg Documented by: Loperamide HCl (Loperamide Hcl 2 Mg Capsule) 2 mg PO DAILY PRN PRN Reason: diarrhea Magnesium Hydroxide (Milk Of Magnesia 30 Ml Oral.Susp) 30 ml PO DAILY PRN PRN Reason: Constipation Methadone HCl (Methadone Hcl 20 Mg/2 Ml Oral.Conc) 90 mg PO DAILY [facility] Last Admin: 06/01/21 07:40 Dose: 90 mg Documented by: Nicotine (Nicotine 21 Mg Patch.Td24) 21 mg TRANSDERMA DAILY [facility] Last Admin: 06/01/21 07:40 Dose: 21 mg Documented by: Nicotine Polacrilex (Nicotine Polacrilex 2 Mg Gum) 4 mg BUCCAL Q2H PRN PRN Reason: Nicotine Cravings Last Admin: 05/30/21 08:01 Dose: 4 mg Documented by: Olanzapine (Olanzapine Odt 10 Mg Tab.Rapdis) 10 mg TRANSLINGU BEDTIME PRN PRN Reason: insomnia Last Admin: 05/31/21 21:41 Dose: 10 mg Documented by: Olanzapine (Olanzapine Odt 10 Mg Tab.Rapdis) 15 mg TRANSLINGU BEDTIME [facility] Last Admin: 05/31/21 20:14 Dose: 15 mg Documented by: Ondansetron HCl (Ondansetron Odt 4 Mg Tab.Rapdis) 4 mg TRANSLINGU Q6H PRN PRN Reason: Nausea Allergies Allergies Allergy/AdvReac Type Severity Reaction Status Date / Time gaylordnnaise [MAYONNAISE] Allergy Intermediate THROAT AND Verified 05/12/21 00:16 TONGUE ITCH quetiapine [From SEROQUEL] Allergy Intermediate DYSTONIA Verified 05/12/21 00:16 cat dander [CATS] Allergy Unknown WATERY Verified 05/12/21 00:16 EYES, SNEEZING dog dander [DOG] Allergy Unknown UNKNOWN Verified 05/12/21 00:16 paroxetine [From PAXIL] Allergy Unknown FLU LIKE Verified 05/12/21 00:16 SYMPTOMS penicillin V Allergy Unknown Unknown Verified 05/12/21 00:16 Penicillins [PENICILLINS] Allergy Unknown SWELLING Verified 05/12/21 00:16 SEAFOOD Allergy Severe DIFFICULTY Uncoded 05/12/21 00:16 BREATHING Assessment & Plan Assessment & Plan (1) Polysubstance abuse: Status: Acute Code(s): F19.10 - Other psychoactive substance abuse, uncomplicated (2) Depression: Qualifiers: Depression Type: other depression Qualified Code(s): F32.89 - Other specified depressive episodes Status: Acute Code(s): F32.9 - Major depressive disorder, single episode, unspecified (3) PTSD (post-traumatic stress disorder): Status: Acute Code(s): F43.10 - Post-traumatic stress disorder, unspecified Assessment and Plan: 1) PSD - CIWA protocol no longer needed as of 05/28. klonopin taper for benzo dependence. methadone at outpt dose with PRNs for breakthrough Sx for opioid dependence. 2) depression/PTSD - zyprexa PRNs of 5 during the day and 10 scheduled at HS for anxiety/agitation/racing thoughts. zyprexa increased to 15 @ HS as of 05/31 for insomnia. haldol 5 added for PRNs 05/29. zyprexa 5 DCed as PRNs 06/01 due to pt c/o oversedation. once pt more clear in mental status will investigate other options for depression and PTSD Tx. 3) DJD pain - c/o DJD with sciatic pain. asking for gabapentin, which he states he has been on in the past. MD deferred any start until pt's mental status is more clear. 4) dispo - pending inpt stabilization. pt not interested in rehab/PHP/IOP. would like to discharge home and do AA once stable. check labs morning. Greater than 50% of the session was spent on counseling and/or coordination of care Reason for contiued inpatient stay Substantial Risk for: inability to function and rapid decompensation
[2021-06-01] MEDS: Nicotine Polacrilex 2 MG GUM 4 MG BUCCAL (17:13)
[2021-06-01] MEDS: Milk of Magnesia 30 ML ORAL.SUSP PO (18:19)
[2021-06-01 18:42] VITALS: BP 130/79; PULSE 88
[2021-06-01] MEDS: cloNIDine HCL 0.1 MG TABLET PO (18:42)
[2021-06-01] MEDS: hydrOXYzine HCL 50 MG TABLET PO (19:53)
[2021-06-01] MEDS: OLANZapine ODT 10 MG TAB.RAPDIS TRANSLINGU ×2 (19:53→22:38)
[2021-06-01] MEDS: OLANZapine ODT 10 MG TAB.RAPDIS 15 MG TRANSLINGU (21:20)
[2021-06-01 21:26] VITALS: BP 112/61; PULSE 89; TEMP 36.7; O2SAT 97
[2021-06-01] MEDS: Benztropine Mesylate 0.5 MG TABLET PO (22:37)
[2021-06-01] MEDS: hydrOXYzine HCL 10 MG TABLET PO (22:38)
[2021-06-02] MEDS: HaloperidoL 5 MG TABLET PO ×4 (06:17→22:55)
[2021-06-02] MEDS: Benztropine Mesylate 0.5 MG TABLET PO ×3 (06:17→22:55)
[2021-06-02] MEDS: Acetaminophen 325 MG TABLET 650 MG PO (06:39)
[2021-06-02 07:12] LABS: MANUAL DIFF FLAG NO
[2021-06-02 07:19] LABS: Basophils Percent Auto 0.2 % (0-2); Eosinophils Absolute Auto 0.5 X10*3/uL (0.0-0.4); Eosinophils Percent Auto 5.5 % (0-4); Hematocrit 40.7 % (42-52); Hemoglobin 13.3 g/dl (14.0-18.0); Imm Gran Abs Auto 0.03 X10*3/uL (0.00-0.03); Imm Gran Pct Auto 0.3 % (0.0-0.4); Lymphocytes Absolute Auto 1.9 X10*3/uL (1.2-4.9); Lymphocytes Percent Auto 19.9 % (20-40); Mean Corpuscular HGB Conc 32.7 g/dl (31.0-36.0); Mean Corpuscular Hemoglobin 29.5 pg (27.0-33.0); Mean Corpuscular Volume 90.2 fL (80-98); Mean Platelet Volume 11.8 fL (9.4-12.4); Monocytes Absolute Auto 0.8 X10*3/uL (0.1-1.2); Monocytes Percent Auto 8.7 % (2-11); Neutrophils Absolute Auto 6.1 X10*3/uL (2.0-8.3); Neutrophils Percent Auto 65.4 % (45-73); Platelet Count 118 X10*3/uL (160-400); Red Blood Count 4.51 X10*6/uL (4.60-5.80); Red Cell Distribution Width 11.8 % (11.0-16.0); White Blood Count 9.4 X10*3/uL (4.8-10.8)
[2021-06-02 07:24] LABS: Lithium 0.76 mmol/L (0.60-1.20)
[2021-06-02 07:31] LABS: Anion Gap 11 (12-20); Blood Urea Nitrogen 18 mg/dL (9-16); Calcium 9.6 mg/dL (8.4-10.2); Carbon Dioxide 29 mmol/L (22-29); Chloride 106 mmol/L (96-108); Creatinine Clr Calc Pharmacy 100.2; Estimated Glomerular Filt Rate > 60; Glucose Random 100 mg/dL (60-115); Potassium 4.1 mmol/L (3.3-5.1); Sodium 142 mmol/L (135-145)
[2021-06-02 07:45] VITALS: BP 109/58; PULSE 85; RESP 16; TEMP 36.7; O2SAT 96
[2021-06-02] MEDS: clonazePAM 0.5 MG TABLET PO ×2 (07:54→20:02)
[2021-06-02] MEDS: Lithium Carbonate ER 450 MG TABLET.ER PO (07:54)
[2021-06-02] MEDS: Nicotine Polacrilex 2 MG GUM 4 MG BUCCAL (07:54)
[2021-06-02] MEDS: methADONE HCl 20 MG/2 ML ORAL.CONC 90 MG PO (08:03)
--- NOTE | 2021-06-02 13:18 | MHC.CLN ---
F/U PATIENT REPORTS THAT HE IS EATING BETTER. CONTINUE REGULAR DIET WITH ENSURE TID (1050 KCAL, 60 G PROTEIN).
--- NOTE | 2021-06-02 15:13 | HO.PSYCHPN ---
Subjective Subjective Date of Service: 06/02/21 Reason For Visit: SI Interim History: pt falling asleep repeatedly during interview, post-methadone dosing. states he does not wish to go lie down on his bed because he cannot sleep well, only sleeping about 30 minutes and then waking up again. c/o anxiety. agrees to try slight increase in lithium dosing, as today's level was only 0.76. MD informs pt that we will likely not be able to do better for his anxiety with medication and that the best next step for his would be anxiety-focused psychotherapy. pt seems ambivalent about this suggestion. per staff, up until 299. anxious re klonopin taper. perseverative about not being able to make it without klonopin. Mental Status Exam Mental Status Exam Narrative: appropriately dressed and groomed. sedated, repeatedly falling asleep in his chair during interview. cooperative. PMR. poor eye contact. speech slowed, soft, decreased in amount. reduced prosody. thoughts linear and logical. affect constricted, hypo-intense, non-labile. no SI/HI/AVH. expressed. Diagnostics Vital Signs (24Hr): Vital Signs - 24 hr 06/01/21 18:42 06/01/21 21:26 06/02/21 07:45 Temperature 98.0 F 98.0 F Pulse Rate 88 89 85 Respiratory Rate 16 Blood Pressure 130/79 112/61 109/58 L Pulse Oximetry 97 96 Body Mass Index 20.9 Labs Results: 06/02/21 06:44 06/02/21 06:44 Labs: Laboratory Results - last 48 hr 06/02/21 06/02/21 06/02/21 06:44 06:44 06:44 WBC 9.4 RBC 4.51 L Hgb 13.3 L Hct 40.7 L MCV 90.2 MCH 29.5 MCHC 32.7 RDW 11.8 Plt Count 118 L MPV 11.8 Immature Gran % (Auto) 0.3 Neut % (Auto) 65.4 Lymph % (Auto) 19.9 L [place] % (Auto) 8.7 Eos % (Auto) 5.5 H Baso % (Auto) 0.2 Lymph # (Auto) 1.9 [place] # (Auto) 0.8 Eos # (Auto) 0.5 H Baso # (Auto) 0.0 Abs Immat Gran (auto) 0.03 Absolute Neuts (auto) 6.1 Absolute Nucleated RBC 0.000 Nucleated RBC % (auto) 0.0 Sodium 142 Potassium 4.1 Chloride 106 Carbon Dioxide 29 Anion Gap 11 L BUN 18 H Creatinine 0.99 Estim Creat Clear Calc 100.2 Estimated GFR > 60 Random Glucose 100 Calcium 9.6 [place] 0.76 Medications Medications Current Medications Acetaminophen (Acetaminophen 325 Mg Tablet) 650 mg PO Q6H PRN PRN Reason: Headache/Pain Mild Scale (1-3) Last Admin: 06/02/21 06:39 Dose: 650 mg Documented by: Al Hydroxide/Mg Hydroxide (Magnesium Hydrox/Alum Hydrox 30 Ml Oral.Susp) 30 ml PO Q6H PRN PRN Reason: Heartburn/Nausea Benztropine Mesylate (Benztropine Mesylate 0.5 Mg Tablet) 0.5 mg PO Q4H PRN PRN Reason: EPS Last Admin: 06/02/21 14:40 Dose: 0.5 mg Documented by: Clonazepam (Clonazepam 0.5 Mg Tablet) 0.5 mg PO BID [facility] Stop: 06/03/21 06:00 Last Admin: 06/02/21 07:54 Dose: 0.5 mg Documented by: Clonidine HCl (Clonidine Hcl 0.1 Mg Tablet) 0.1 mg PO Q2H PRN; Protocol PRN Reason: opioid withdrawal Last Admin: 06/01/21 18:42 Dose: 0.1 mg Documented by: Dicyclomine HCl (Dicyclomine Hcl 10 Mg Capsule) 10 mg PO QIDACHS PRN PRN Reason: stomach cramps Last Admin: 05/28/21 22:06 Dose: 10 mg Documented by: Haloperidol (Haloperidol 5 Mg Tablet) 5 mg PO Q4H PRN PRN Reason: Anxiety Last Admin: 06/02/21 14:34 Dose: 5 mg Documented by: Hydroxyzine HCl (Hydroxyzine Hcl 10 Mg Tablet) 10 mg PO Q6H PRN PRN Reason: Anxiety Last Admin: 06/01/21 22:38 Dose: 10 mg Documented by: [place] Carbonate ([place] Carbonate Er 450 Mg Tablet.Er) 450 mg PO DAILY [facility] [place] Carbonate ([place] Carbonate Er 300 Mg Tablet.Er) 600 mg PO BEDTIME [facility] Loperamide HCl (Loperamide Hcl 2 Mg Capsule) 2 mg PO DAILY PRN PRN Reason: diarrhea Magnesium Hydroxide (Milk Of Magnesia 30 Ml Oral.Susp) 30 ml PO DAILY PRN PRN Reason: Constipation Last Admin: 06/01/21 18:19 Dose: 30 ml Documented by: Methadone HCl (Methadone Hcl 20 Mg/2 Ml Oral.Conc) 90 mg PO DAILY [facility] Last Admin: 06/02/21 08:03 Dose: 90 mg Documented by: Nicotine (Nicotine 21 Mg Patch.Td24) 21 mg TRANSDERMA DAILY [facility] Last Admin: 06/02/21 07:57 Dose: Not Given Documented by: Nicotine Polacrilex (Nicotine Polacrilex 2 Mg Gum) 4 mg BUCCAL Q2H PRN PRN Reason: Nicotine Cravings Last Admin: 06/02/21 07:54 Dose: 4 mg Documented by: Olanzapine (Olanzapine Odt 10 Mg Tab.Rapdis) 10 mg TRANSLINGU BEDTIME PRN PRN Reason: insomnia Last Admin: 06/01/21 22:38 Dose: 10 mg Documented by: Olanzapine (Olanzapine Odt 10 Mg Tab.Rapdis) 15 mg TRANSLINGU BEDTIME [facility] Last Admin: 06/01/21 21:20 Dose: 15 mg Documented by: Ondansetron HCl (Ondansetron Odt 4 Mg Tab.Rapdis) 4 mg TRANSLINGU Q6H PRN PRN Reason: Nausea Allergies Allergies Allergy/AdvReac Type Severity Reaction Status Date / Time mayonnaise [MAYONNAISE] Allergy Intermediate THROAT AND Verified 05/12/21 00:16 TONGUE ITCH quetiapine [From SEROQUEL] Allergy Intermediate DYSTONIA Verified 05/12/21 00:16 cat dander [CATS] Allergy Unknown WATERY Verified 05/12/21 00:16 EYES, SNEEZING dog dander [DOG] Allergy Unknown UNKNOWN Verified 05/12/21 00:16 paroxetine [From PAXIL] Allergy Unknown FLU LIKE Verified 05/12/21 00:16 SYMPTOMS penicillin V Allergy Unknown Unknown Verified 05/12/21 00:16 Penicillins [PENICILLINS] Allergy Unknown SWELLING Verified 05/12/21 00:16 SEAFOOD Allergy Severe DIFFICULTY Uncoded 05/12/21 00:16 BREATHING Assessment & Plan Assessment & Plan (1) Polysubstance abuse: Status: Acute Code(s): F19.10 - Other psychoactive substance abuse, uncomplicated (2) Depression: Qualifiers: Depression Type: other depression Qualified Code(s): F32.89 - Other specified depressive episodes Status: Acute Code(s): F32.9 - Major depressive disorder, single episode, unspecified (3) PTSD (post-traumatic stress disorder): Status: Acute Code(s): F43.10 - Post-traumatic stress disorder, unspecified Assessment and Plan: 1) PSD - CIWA protocol no longer needed as of 05/28. klonopin taper for benzo dependence finishes 06/02. methadone at outpt dose with PRNs for breakthrough Sx for opioid dependence. 2) depression/PTSD - zyprexa PRNs of 5 during the day and 10 scheduled at HS for anxiety/agitation/racing thoughts. zyprexa increased to 15 @ HS as of 05/31 for insomnia. haldol 5 added for PRNs 05/29. zyprexa 5 DCed as PRNs 06/01 due to pt c/o oversedation. once pt more clear in mental status will investigate other options for depression and PTSD Tx. lithium started with the thought perhaps anxiety is unusual presentation of ingrid; some improvement since starting lithium. level on 450 BID is 0.76, dosing increased to 450/600 on 06/02. 3) DJD pain - c/o DJD with sciatic pain. asking for gabapentin, which he states he has been on in the past. MD deferred any start until pt's mental status is more clear. 4) dispo - pending inpt stabilization. pt not interested in rehab/PHP/IOP. would like to discharge home and do AA once stable. Greater than 50% of the session was spent on counseling and/or coordination of care Reason for contiued inpatient stay Substantial Risk for: inability to function
[2021-06-02] MEDS: hydrOXYzine HCL 10 MG TABLET PO ×2 (16:48→23:40)
[2021-06-02 18:00] VITALS: BP 124/65; PULSE 84; RESP 16; TEMP 36.5; O2SAT 97
[2021-06-02] MEDS: OLANZapine ODT 10 MG TAB.RAPDIS 15 MG TRANSLINGU (20:02)
[2021-06-02] MEDS: Lithium Carbonate ER 300 MG TABLET.ER 600 MG PO (20:02)
[2021-06-02] MEDS: OLANZapine ODT 10 MG TAB.RAPDIS TRANSLINGU (20:05)
[2021-06-02] MEDS: cloNIDine HCL 0.1 MG TABLET PO (23:40)
[2021-06-03] MEDS: HaloperidoL 5 MG TABLET PO ×5 (03:02→21:59)
[2021-06-03] MEDS: Nicotine Polacrilex 2 MG GUM 4 MG BUCCAL (05:10)
[2021-06-03] MEDS: Benztropine Mesylate 0.5 MG TABLET PO (05:14)
[2021-06-03] MEDS: cloNIDine HCL 0.1 MG TABLET PO ×2 (05:14→21:59)
[2021-06-03] MEDS: Lithium Carbonate ER 450 MG TABLET.ER PO (08:03)
[2021-06-03] MEDS: methADONE HCl 20 MG/2 ML ORAL.CONC 90 MG PO (08:03)
[2021-06-03] MEDS: Nicotine 21 MG PATCH.TD24 TRANSDERMA (08:03)
[2021-06-03 08:15] VITALS: BP 97/64; PULSE 60; RESP 16; TEMP 36.4; O2SAT 97
[2021-06-03] MEDS: hydrOXYzine HCL 10 MG TABLET PO ×2 (13:31→21:59)
[2021-06-03] MEDS: OXcarbazepine 150 MG TABLET PO ×2 (16:11→20:03)
[2021-06-03 18:00] VITALS: BP 100/55; PULSE 70; TEMP 36.8; O2SAT 95
[2021-06-03] MEDS: Lithium Carbonate ER 300 MG TABLET.ER 600 MG PO (20:03)
[2021-06-03] MEDS: OLANZapine ODT 10 MG TAB.RAPDIS TRANSLINGU ×2 (20:03→21:58)
--- NOTE | 2021-06-03 20:46 | HO.PSYCHPN ---
Subjective Subjective Date of Service: 06/03/21 Reason For Visit: SI Subjective Notes: Conditional Voluntary Healthcare Proxy: No Guardianship: No Interim History: Patient alternates between being quite lethargic complaining of anxiety at the same time asking for clonazepam aware of having finished detox denies active self-harm depressed no obvious signs of withdrawal limited coping strategies states he feels clonidine not helpful Mental Status Exam Mental Status Exam Narrative: Patient casually dressed quite lethargic and unable to respond when initially seen. Later sad and anxious looking in appearance no tremor complains of anxiety but cannot really describe symptoms. Affect constricted dysphoric no self-harming thoughts of thoughts of harm to others no psychotic symptoms marked lack of insight states not feeling better on current regimen Diagnostics Vital Signs (24Hr): Vital Signs - 24 hr 06/03/21 08:15 06/03/21 18:00 Temperature 97.6 F 98.3 F Pulse Rate 60 70 Respiratory Rate 16 Blood Pressure 97/64 100/55 L Pulse Oximetry 97 95 Body Mass Index 20.9 Labs Results: 06/02/21 06:44 06/02/21 06:44 Labs: Laboratory Results - last 48 hr 06/02/21 06/02/21 06/02/21 06:44 06:44 06:44 WBC 9.4 RBC 4.51 L Hgb 13.3 L Hct 40.7 L MCV 90.2 MCH 29.5 MCHC 32.7 RDW 11.8 Plt Count 118 L MPV 11.8 Immature Gran % (Auto) 0.3 Neut % (Auto) 65.4 Lymph % (Auto) 19.9 L [place] % (Auto) 8.7 Eos % (Auto) 5.5 H Baso % (Auto) 0.2 Lymph # (Auto) 1.9 [place] # (Auto) 0.8 Eos # (Auto) 0.5 H Baso # (Auto) 0.0 Abs Immat Gran (auto) 0.03 Absolute Neuts (auto) 6.1 Absolute Nucleated RBC 0.000 Nucleated RBC % (auto) 0.0 Sodium 142 Potassium 4.1 Chloride 106 Carbon Dioxide 29 Anion Gap 11 L BUN 18 H Creatinine 0.99 Estim Creat Clear Calc 100.2 Estimated GFR > 60 Random Glucose 100 Calcium 9.6 [place] 0.76 Medications Medications Current Medications Acetaminophen (Acetaminophen 325 Mg Tablet) 650 mg PO Q6H PRN PRN Reason: Headache/Pain Mild Scale (1-3) Last Admin: 06/02/21 06:39 Dose: 650 mg Documented by: Al Hydroxide/Mg Hydroxide (Magnesium Hydrox/Alum Hydrox 30 Ml Oral.Susp) 30 ml PO Q6H PRN PRN Reason: Heartburn/Nausea Benztropine Mesylate (Benztropine Mesylate 0.5 Mg Tablet) 0.5 mg PO Q4H PRN PRN Reason: EPS Last Admin: 06/03/21 05:14 Dose: 0.5 mg Documented by: Clonidine HCl (Clonidine Hcl 0.1 Mg Tablet) 0.1 mg PO Q2H PRN; Protocol PRN Reason: opioid withdrawal Last Admin: 06/03/21 05:14 Dose: 0.1 mg Documented by: Dicyclomine HCl (Dicyclomine Hcl 10 Mg Capsule) 10 mg PO QIDACHS PRN PRN Reason: stomach cramps Last Admin: 05/28/21 22:06 Dose: 10 mg Documented by: Haloperidol (Haloperidol 5 Mg Tablet) 5 mg PO Q4H PRN PRN Reason: Anxiety Last Admin: 06/03/21 18:03 Dose: 5 mg Documented by: Hydroxyzine HCl (Hydroxyzine Hcl 10 Mg Tablet) 10 mg PO Q6H PRN PRN Reason: Anxiety Last Admin: 06/03/21 13:31 Dose: 10 mg Documented by: [place] Carbonate ([place] Carbonate Er 450 Mg Tablet.Er) 450 mg PO DAILY [facility] Last Admin: 06/03/21 08:03 Dose: 450 mg Documented by: [place] Carbonate ([place] Carbonate Er 300 Mg Tablet.Er) 600 mg PO BEDTIME [facility] Last Admin: 06/03/21 20:03 Dose: 600 mg Documented by: Loperamide HCl (Loperamide Hcl 2 Mg Capsule) 2 mg PO DAILY PRN PRN Reason: diarrhea Magnesium Hydroxide (Milk Of Magnesia 30 Ml Oral.Susp) 30 ml PO DAILY PRN PRN Reason: Constipation Last Admin: 06/01/21 18:19 Dose: 30 ml Documented by: Methadone HCl (Methadone Hcl 20 Mg/2 Ml Oral.Conc) 90 mg PO DAILY [facility] Last Admin: 06/03/21 08:03 Dose: 90 mg Documented by: Nicotine (Nicotine 21 Mg Patch.Td24) 21 mg TRANSDERMA DAILY [facility] Last Admin: 06/03/21 08:03 Dose: 21 mg Documented by: Nicotine Polacrilex (Nicotine Polacrilex 2 Mg Gum) 4 mg BUCCAL Q2H PRN PRN Reason: Nicotine Cravings Last Admin: 06/03/21 05:10 Dose: 4 mg Documented by: Olanzapine (Olanzapine Odt 10 Mg Tab.Rapdis) 10 mg TRANSLINGU BEDTIME PRN PRN Reason: insomnia Last Admin: 06/02/21 20:05 Dose: 10 mg Documented by: Olanzapine (Olanzapine Odt 10 Mg Tab.Rapdis) 10 mg TRANSLINGU BEDTIME [facility] Last Admin: 06/03/21 20:03 Dose: 10 mg Documented by: Ondansetron HCl (Ondansetron Odt 4 Mg Tab.Rapdis) 4 mg TRANSLINGU Q6H PRN PRN Reason: Nausea Oxcarbazepine (Oxcarbazepine 150 Mg Tablet) 150 mg PO BID [facility] Last Admin: 06/03/21 20:03 Dose: 150 mg Documented by: Allergies Allergies Allergy/AdvReac Type Severity Reaction Status Date / Time mayonnaise [MAYONNAISE] Allergy Intermediate THROAT AND Verified 05/12/21 00:16 TONGUE ITCH quetiapine [From SEROQUEL] Allergy Intermediate DYSTONIA Verified 05/12/21 00:16 cat dander [CATS] Allergy Unknown WATERY Verified 05/12/21 00:16 EYES, SNEEZING dog dander [DOG] Allergy Unknown UNKNOWN Verified 05/12/21 00:16 paroxetine [From PAXIL] Allergy Unknown FLU LIKE Verified 05/12/21 00:16 SYMPTOMS penicillin V Allergy Unknown Unknown Verified 05/12/21 00:16 Penicillins [PENICILLINS] Allergy Unknown SWELLING Verified 05/12/21 00:16 SEAFOOD Allergy Severe DIFFICULTY Uncoded 05/12/21 00:16 BREATHING Assessment & Plan Assessment & Plan (1) Polysubstance abuse: Status: Acute Code(s): F19.10 - Other psychoactive substance abuse, uncomplicated Assessment and Plan: Continue methadone monitor for over sedation (2) Depression: Qualifiers: Depression Type: other depression Qualified Code(s): F32.89 - Other specified depressive episodes Status: Acute Code(s): F32.9 - Major depressive disorder, single episode, unspecified Assessment and Plan: Patient with question of bipolar disorder on lithium frequently complaining of anxiety and dysphoria. Had been helped by Depakote and past history of hepatitis-C start low-dose Trileptal (3) PTSD (post-traumatic stress disorder): Status: Acute Code(s): F43.10 - Post-traumatic stress disorder, unspecified Assessment and Plan: 1) PSD klonopin taper for benzo dependence finishes 06/02. methadone at outpt dose with PRNs clonidine 2) depression/PTSD - zyprexa PRNs of 5 during the day and 10 scheduled at HS for anxiety/agitation/racing thoughts. zyprexa Lowered to 10 mg at HS secondary to over-sedation in the morning monitor response to the addition of Trileptal consider Depakote 3) DJD pain - c/o DJD with sciatic pain. asking for gabapentin, which he states he has been on in the past. MD deferred any start until pt's mental status is more clear. Given sedation would avoid gabapentin can beabused snorted 4) dispo - pending inpt stabilization. pt not interested in rehab/PHP/IOP. would like to discharge home and do AA once stable. Greater than 50% of the session was spent on counseling and/or coordination of care Reason for contiued inpatient stay Substantial Risk for: inability to function and rapid decompensation
[2021-06-03 21:59] VITALS: BP 108/63; PULSE 68
[2021-06-04] MEDS: Benztropine Mesylate 0.5 MG TABLET PO (05:12)
[2021-06-04] MEDS: methADONE HCl 20 MG/2 ML ORAL.CONC 90 MG PO (08:09)
[2021-06-04] MEDS: Lithium Carbonate ER 450 MG TABLET.ER PO (08:11)
[2021-06-04] MEDS: OXcarbazepine 150 MG TABLET PO (08:11)
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
== END 2021-06-04 13:16 | disposition home or self-care (01) | DRG 754 ==
LOC: HO.ED 22:08 → HO.PADLT16 05-25 14:22
PROVIDERS: Admitting Provider Psychiatry & Neurology Psychiatry; Emergency Provider Emergency Medicine; Visit Provider Psychiatry & Neurology Psychiatry
DX: F32.9 Major depressive disorder, single episode, unspecified (principal); R45.851 Suicidal ideations; F11.20 Opioid dependence, uncomplicated; F43.10 Post-traumatic stress disorder, unspecified; F17.210 Nicotine dependence, cigarettes, uncomplicated; F19.10 Other psychoactive substance abuse, uncomplicated; Z71.6 Tobacco abuse counseling; Z88.0 Allergy status to penicillin; Z79.899 Other long term (current) drug therapy
CPT/HCPCS: 36415; 80048; 80076; 80178; 80307; 82077; 85025; 87635; 93005; 99285

== ENCOUNTER 2021-06-28 12:23 | Emergency (ER) | payer MEDICAID, SELFPAY ==
[2021-06-28 12:47] VITALS: BP 109/68; PULSE 77; RESP 18; TEMP 37; O2SAT 96; BMI 22.3
--- NOTE | 2021-06-28 13:48 | ED.GENADULT ---
HPI - General Adult General Chief complaint: Upper Respiratory Symptoms Stated complaint: Chills/Congestion/SOB Time Seen by Provider: 06/28/21 13:36 Source: patient Mode of arrival: ambulatory Limitations: no limitations History of Present Illness HPI narrative: Patient presents to the ED for runny nose, chills, cough, and body aches. Patient denies any chest pain, shortness of breath, coughing up blood, swelling of lower extremities, calf pain, weakness. Patient states his little brother has symptoms 1st and now he has symptoms also. Related Data Home Medications Medication Instructions Recorded Confirmed methadone 10 mg tablet 87 mg PO DAILY 05/25/21 05/25/21 Previous Rx's Medication Instructions Recorded clonidine HCl 0.2 mg tablet 0.1 mg PO Q8H #10 tab 06/06/20 ibuprofen 800 mg tablet 800 mg PO Q8H PRN #30 tab 07/01/20 albuterol sulfate 90 mcg/actuation 2 puff INHALATION QID PRN #6.7 g 06/04/21 aerosol inhaler benztropine 0.5 mg tablet 0.5 mg PO TID PRN #90 tab 06/04/21 haloperidol 5 mg tablet 5 mg PO TID PRN #90 tab 06/04/21 lithium carbonate 300 mg 600 mg PO BEDTIME 30 Days #60 tab 06/04/21 tablet,extended release lithium carbonate 450 mg 450 mg PO DAILY 30 Days #30 tab 06/04/21 tablet,extended release olanzapine 10 mg tablet 10 mg PO BEDTIME #30 tab 06/04/21 oxcarbazepine 150 mg tablet 150 mg PO BID 30 Days #60 tab 06/04/21 Allergies Allergy/AdvReac Type Severity Reaction Status Date / Time mayonnaise [MAYONNAISE] Allergy Intermediate THROAT AND Verified 05/12/21 00:16 TONGUE ITCH quetiapine [From SEROQUEL] Allergy Intermediate DYSTONIA Verified 05/12/21 00:16 cat dander [CATS] Allergy Unknown WATERY Verified 05/12/21 00:16 EYES, SNEEZING dog dander [DOG] Allergy Unknown UNKNOWN Verified 05/12/21 00:16 paroxetine [From PAXIL] Allergy Unknown FLU LIKE Verified 05/12/21 00:16 SYMPTOMS penicillin V Allergy Unknown Unknown Verified 05/12/21 00:16 Penicillins [PENICILLINS] Allergy Unknown SWELLING Verified 05/12/21 00:16 SEAFOOD Allergy Severe DIFFICULTY Uncoded 05/12/21 00:16 BREATHING Review of Systems Review of Systems: Yes all other systems are reviewed and are negative Constitutional: Constitutional: Reports as per HPI, Reports no additional constitutional complaints, Reports body ache(s) and Reports chills Eyes: Eyes: Reports as per HPI and Reports no additional eye complaints ENT: Reports system reviewed and no additional complaints, except as documented, Reports as per HPI and Reports nasal congestion Cardiovascular: Cardiovascular: Reports as per HPI, Reports no additional cardiovascular complaints, Denies chest pain, Denies chest pain at rest, Denies chest pain with activity, Denies Epigastric Pain, Denies dyspnea and Denies dyspnea on exertion Respiratory: Respiratory: Reports as per HPI, Reports no additional respiratory complaints, Reports cough, Denies pain on inspiration, Denies pain with cough, Denies dyspnea and Denies dyspnea on exertion Gastrointestinal: Gastrointestinal: Reports as per HPI and Reports no additional gastrointestinal complaints Genitourinary: Genitourinary: Reports no additional male genitourinary complaints and Reports as per HPI Musculoskeletal: Musculoskeletal: Reports no additional musculoskeletal complaints and Reports as per HPI Integumentary/Breasts: Skin/Breast: Reports system reviewed and no additional complaints, except as docu and Reports as per HPI Neurologic: Reports system reviewed and no additional complaints, except as documented and Reports as per HPI Psychiatric: Psychiatric: Reports no additional psychiatric complaints and Reports as per HPI PMF Past Medical History Medical History ACL (anterior cruciate ligament) rupture Asthma Hepatitis C Hepatitis C antibody positive in blood Knee cartilage, torn, right Substance abuse withdrawal Social History Social History Household Members: Family Household Members Other:: 3 Housing: House Do you presently have visiting nurse or other home services: No Unable to assess alcohol history related to: Unknown Alcohol intake: current Alcohol intake frequency: a few times a month Alcohol type: beer and hard liquor Patient Tobacco Use Status: Current everyday Tobacco user Tobacco use type: Cigarette Cigarettes Per Day: 10 Years Smoked: 15 e-Cigarette/Vaping Use: Never Used Substance Use Type: Sedatives Advance Directives: No Advance Directives Information Provided: No service: No Sexual orientation: Straight/Heterosexual Physical Exam Vital Signs: Vital Signs: Last Vital Signs Temp 98.6 F 10/25/21 12:47 Pulse 77 06/28/21 12:47 Resp 18 06/28/21 12:47 BP 109/68 06/28/21 12:47 Pulse Ox 96 06/28/21 12:47 Body Mass Index 22.3 Const: General: cooperative, healthy appearing, comfortable, no acute distress, well developed, alert, awake and Physically active Orientation/consciousness: patient oriented x3 HENMT: Head: Yes normal to inspection, Yes No palpable skull fracture present, Yes normocephalic, Yes atraumatic and No abrasion Ears: hearing grossly normal bilaterally, external ears normal, TM's normal bilaterally, EAC's normal, mastoids normal and no periauricular adenopathy General nose exam: Normal external nose present and Normal nares present Throat: Yes posterior oropharynx normal, Yes tonsils normal and Yes uvula midline Eyes: General: appearance normal, both eyes and all related structures Neck: Neck: Yes normal visual inspection, Yes full ROM, Yes no lymphadenopathy, Yes no meningeal signs, Yes trachea midline, Yes supple and No tender Chest: Chest palpation & inspection: normal inspection of the chest and normal palpation of entire chest wall Resp: Effort & Inspection: normal respiratory effort and able to speak in complete sentences Auscultation: clear to auscultation bilaterally Cardio: Jugular venous distension: no JVD Heart sounds: S1 normal heart sound present and S2 normal heart sound present GI: Inspection: Yes normal to inspection and No abdominal wall ecchymosis Palpation (GI): Soft to palpation, not firm, nontender, no guarding and not rigid : General: No CVA tenderness and Yes no CVA tenderness Back/Spine/Pelvis: Back: no CVA tenderness, No CVA tenderness and No back tenderness Skin: General skin exam: no rashes or lesions noted and elasticity normal Neuro: General: patient oriented x3, gait normal, no meningeal signs and CN's II-XI intact bilaterally Cranial nerves: Yes CN's II-XII intact bilaterally Extrem: General: Yes normal to inspection and Yes full ROM Psych: Appearance: grossly normal, well kempt and not disheveled Course Course Course Narrative: Patient is not toxic appearing. Patient will have COVID SARS swab sent. Reevaluation(s) Reevaluation #1: Patient eloped from the ER. Patient states he had to go leave and preferred to be called with results. Patient left before discharge papers could be prepared. Patient was called at 19:10 and inform his COVID swab, influenza, and RSV negative. Medical Decision Making MDM Narrative Medical decision making narrative: Viral Lab Data Labs: Lab Results 06/28/21 Range/Units 13:15 Coronavirus (PCR) NEGATIVE (Negative) Influenza Type A (PCR) NEGATIVE (Negative) Influenza Type B (PCR) NEGATIVE (Negative) RSV RNA Qual (PCR) NEGATIVE (Negative) Discharge Plan Discharge Clinical Impression: Acute viral syndrome Patient Disposition: Elopement Prescriptions: No Action clonidine HCl 0.2 mg tablet 0.1 mg PO Q8H Qty: 10 RF: 0 ibuprofen 800 mg tablet 800 mg PO Q8H PRN (Reason: pain) Qty: 30 RF: 0 methadone 10 mg Tablet 87 mg PO DAILY RF: 0 oxcarbazepine 150 mg Tablet 150 mg PO BID 30 Days Qty: 60 RF: 0 benztropine 0.5 mg Tablet 0.5 mg PO TID PRN (Reason: EPS) Qty: 90 RF: 0 haloperidol 5 mg Tablet 5 mg PO TID PRN (Reason: Anxiety) Qty: 90 RF: 0 lithium carbonate 300 mg Tablet Extended Release 600 mg PO BEDTIME 30 Days Qty: 60 RF: 0 lithium carbonate 450 mg Tablet Extended Release 450 mg PO DAILY 30 Days Qty: 30 RF: 0 albuterol sulfate 90 mcg/actuation HFA aerosol inhaler 2 puff inhalation QID PRN (Reason: shortness of breath or wheezing) Qty: 6.7 RF: 0 olanzapine 10 mg tablet 10 mg PO BEDTIME Qty: 30 RF: 0 Discharge Date/Time: 06/28/21 14:54
[2021-06-28 14:11] LABS: Influenza A PCR NEGATIVE (Negative); Influenza B PCR NEGATIVE (Negative); Resp Syncy Virus RNA Qual PCR NEGATIVE (Negative); SARS COV2 PCR INHOUSE NEGATIVE (Negative)
--- NOTE | 2021-06-28 14:53 | PC.NURSE ---
PT STATED HE NEEDED TO LEAVE BEFORE DISCHARGE PAPERS WERE READY. PT ASKED THAT WE CALL HIM WITH HIS RESULTS. PA AWARE.
== END 2021-06-28 14:54 | disposition left against medical advice (07) ==
PROVIDERS: Physician Assistant; Emergency Provider Emergency Medicine; PCP Internal Medicine
DX: B34.9 Viral infection, unspecified (principal); Z20.822 Contact with and (suspected) exposure to COVID-19
CPT/HCPCS: 0241U; 36415; 99283

== ENCOUNTER → 2021-10-06 08:59 | Outpatient (BNVA) | payer MEDICAID, SELFPAY | PROVIDERS: PCP Internal Medicine; Visit Provider Internal Medicine Pulmonary Disease | DX: R91.8 Other nonspecific abnormal finding of lung field (principal); J45.909 Unspecified asthma, uncomplicated | CPT/HCPCS: 99202 ==

== ENCOUNTER 2021-10-15 13:36 | Outpatient (REF) | payer MEDICAID, SELFPAY ==
--- NOTE | ~2021-10-15 | CT_ITS ---
EXAMINATION: CT CHEST WITHOUT CONTRAST CLINICAL INFORMATION: Pulmonary nodule follow-up COMPARISON: Previous chest x-ray most recent April 2021 TECHNIQUE: Multidetector volumetric CT imaging of the chest was done. Axial MIP volume rendering provided. Sagittal and coronal reformatted images were obtained. This CT examination was performed using dose optimization techniques as appropriate, variously including the following: *Automated exposure control *Adjustment of mA and/or kV according to patient size (this includes techniques or standardized protocols for targeted exams where dose is matched to indication/reason for exam; i.e. extremities or head) *Use of iterative reconstruction technique DLP: 164 mGy-cm FINDINGS: LUNGS: There is a 3 mm probably calcified right upper lobe nodule near the minor fissure axial image 319 series 7. The lungs are otherwise clear. MEDIASTINUM: The mediastinum is normal. PLEURA: There is no pleural effusion. No pleural mass or thickening. AXILLA: No lymphadenopathy. UPPER ABDOMEN: Unremarkable. OSSEOUS STRUCTURES: Unremarkable. CT/CT chest wo con IMPRESSION: 3 mm right upper lobe nodule. According to the UPDATED 2017 Fleischner Society recommendations, the advised follow-up imaging for less than 6 mm nodule: Low risk, no chest CT follow-up and high risk, optional chest CT follow-up in one. Fleischner guidelines were followed.
== END 2021-10-15 13:37 | disposition home or self-care (01) ==
LOC: HO.CT 13:36
PROVIDERS: PCP Internal Medicine; Visit Provider Internal Medicine Pulmonary Disease
DX: R91.8 Other nonspecific abnormal finding of lung field (principal)
CPT/HCPCS: 71250

== ENCOUNTER 2021-10-29 17:25 | Emergency (ER) | payer MEDICAID, SELFPAY ==
[2021-10-29 17:32] VITALS: BP 106/66; PULSE 87; RESP 20; TEMP 36.7; O2SAT 99; BMI 23.0
--- NOTE | 2021-10-29 18:16 | ED_ITS ---
HPI - Psych General Chief Complaint: Psychiatric Symptoms Stated Complaint: Multiple complaints-withdrawals Source: patient Mode of arrival: ambulatory Limitations: no limitations History of Present Illness HPI Narrative: 36-year-old male presents with vague feelings of SI and detoxing from benzo diazepam and heroin. MD complaint: suicidal ideation and feels depressed Onset (ago): day(s) (Five) Duration: constant and getting worse History of same: Yes Relieving factors: none Exacerbating factors: other (Benzo and heroin withdrawal) Context: recent drug abuse (Klonopin 5 days ago, heroin 2 days ago) Associated psychiatric symptoms: depression and racing thoughts Associated symptoms: denies other symptoms Treatments prior to arrival: none Related Data Home Medications Medication Instructions Recorded Confirmed methadone 10 mg tablet 87 mg PO DAILY 05/25/21 05/25/21 Previous Rx's Medication Instructions Recorded clonidine HCl 0.2 mg tablet 0.1 mg PO Q8H #10 tab 06/06/20 ibuprofen 800 mg tablet 800 mg PO Q8H PRN #30 tab 07/01/20 albuterol sulfate 90 mcg/actuation 2 puff INHALATION QID PRN #6.7 g 06/04/21 aerosol inhaler benztropine 0.5 mg tablet 0.5 mg PO TID PRN #90 tab 06/04/21 haloperidol 5 mg tablet 5 mg PO TID PRN #90 tab 06/04/21 lithium carbonate 300 mg 600 mg PO BEDTIME 30 Days #60 tab 06/04/21 tablet,extended release lithium carbonate 450 mg 450 mg PO DAILY 30 Days #30 tab 06/04/21 tablet,extended release olanzapine 10 mg tablet 10 mg PO BEDTIME #30 tab 06/04/21 oxcarbazepine 150 mg tablet 150 mg PO BID 30 Days #60 tab 06/04/21 Allergies Allergy/AdvReac Type Severity Reaction Status Date / Time mayonnaise [MAYONNAISE] Allergy Intermediate THROAT AND Verified 10/06/21 09:03 TONGUE ITCH quetiapine [From SEROQUEL] Allergy Intermediate DYSTONIA Verified 10/06/21 09:03 cat dander [CATS] Allergy Unknown WATERY Verified 10/06/21 09:03 EYES, SNEEZING dog dander [DOG] Allergy Unknown UNKNOWN Verified 10/06/21 09:03 paroxetine [From PAXIL] Allergy Unknown FLU LIKE Verified 10/06/21 09:03 SYMPTOMS penicillin V Allergy Unknown Unknown Verified 10/06/21 09:03 Penicillins [PENICILLINS] Allergy Unknown SWELLING Verified 10/06/21 09:03 SEAFOOD Allergy Severe DIFFICULTY Uncoded 05/12/21 00:16 BREATHING Review of Systems Review of Systems: Constitutional: No Fever, No Chills ENT/Mouth: No sore throat, No Rhinorrhea Eyes: No Eye Pain, No Swelling, No Redness Cardiovascular: No Chest Pain, No SOB Respiratory: No Cough, No Sputum Gastrointestinal: No Nausea, No Vomiting, No Diarrhea, No abdominal Pain Genitourinary: No Dysuria, No Hematuria Musculoskeletal: No joint pain, No Myalgias, No Joint Swelling Skin: No Skin Lesions, No rash Neuro: No Weakness, No Numbness, No Loss of Consciousness, No Dizziness, No Headache Psych: Positive substance abuse withdrawal,Positive Anxiety, positive Depression, No SI/HI/AH/VH Heme/Lymph: No Bruising, No Bleeding,No Lymphadenopathy Endocrine: No Polyuria, No Polydipsia Yes all other systems are reviewed and are negative [facility] Past Medical History Attestation statement: The following information was validated with the patient. Source: old records reviewed Medical History ACL (anterior cruciate ligament) rupture Asthma Hepatitis C Hepatitis C antibody positive in blood Knee cartilage, torn, right Substance abuse withdrawal Social History Social History Household Members: Family Household Members Other:: 3 Housing: House Do you presently have visiting nurse or other home services: No Unable to assess alcohol history related to: Unknown Alcohol intake: current Alcohol intake frequency: a few times a month Alcohol type: beer and hard liquor Patient Tobacco Use Status: Current everyday Tobacco user Tobacco use type: Cigarette Cigarettes Per Day: 10 Years Smoked: 15 e-Cigarette/Vaping Use: Never Used Substance Use Type: Sedatives Advance Directives: No Advance Directives Information Provided: No service: No Sexual orientation: Straight/Heterosexual Physical Exam Vital Signs: Vital Signs: Last Vital Signs Temp 98.1 F 10/29/21 20:18 Pulse 83 10/29/21 20:18 Resp 18 10/29/21 20:18 BP 131/68 10/29/21 20:18 Pulse Ox 99 10/29/21 20:18 BMI result Body Mass Index 23.0 Appearance: Alert. Oriented X3. Mild emotional distress. Eyes: Pupils equal, round and reactive to light. EOMI. No nystagmus. Sclerae nonicteric. ENT: Pharynx normal. Moist mucous membranes. Neck: Normal inspection. Neck supple. CVS: Normal heart rate and rhythm. Pulses normal. Respiratory: No respiratory distress. Breath sounds normal. Abdomen: Soft and nontender. Skin: Skin warm and dry. Normal skin color. Normal skin turgor. Extremities: No lower extremity edema. Gait well-balanced well coordinated. Neuro: No motor deficit. No sensory deficit. Cranial nerves 2-12 intact. Course Course Course Narrative: 36-year-old male presents for consult for depression, anxiety, substance abuse and is currently withdrawing from benzo diazepam and heroin. Has been using approximately 4 mg of Klonopin daily for the past several years, last use was 5 days ago, is on methadone and has been using heroin, last heroin used 2 days ago. While patient does state to have vague suicidal ideation he does not have a significant plan, denies auditory and visual hallucinations, denies homicidal ideations. Does not have any physical complaints the exception of withdrawal symptoms. Will order labs and care team consult 19:30 care team consult complete, plan is to discharge home with outpatient detox information. Patient verbalized understanding of and agrees plan of care discharge home. Understand signs and symptoms indicating need for emergent intervention. MDM - Psych Differential Diagnosis Differential diagnosis: Likely acute psychosis, suicidal ideation, depression, drug-induced psychotic disorder, substance abuse and mood disorder Medical Records Attestation: I reviewed the patient's medical records. Lab Data Attestation: I reviewed the patient's lab results. Result diagrams: 10/29/21 18:45 10/29/21 18:45 Labs: Lab Results 10/29/21 10/29/21 10/29/21 Range/Units 18:45 18:45 18:45 WBC 8.6 (4.8-10.8) X10*3/uL RBC 5.16 (4.60-5.80) X10*6/uL Hgb 14.9 (14.0-18.0) g/dl Hct 43.3 (42.0-52.0) % MCV 83.9 (80.0-98.0) fL MCH 28.9 (27.0-33.0) pg MCHC 34.4 (31.0-36.0) g/dl RDW 12.1 (11.0-16.0) % Plt Count 193 (160-400) X10*3/uL MPV 10.6 (9.4-12.4) fL Immature Gran % (Auto) 0.2 (0.0-0.4) % Neut % (Auto) 72.8 (45-73) % Lymph % (Auto) 19.4 L (20-40) % [place] % (Auto) 5.9 (2-11) % Eos % (Auto) 1.2 (0-4) % Baso % (Auto) 0.5 (0-2) % Lymph # (Auto) 1.7 (1.2-4.9) X10*3/uL [place] # (Auto) 0.5 (0.1-1.2) X10*3/uL Eos # (Auto) 0.1 (0.0-0.4) X10*3/uL Baso # (Auto) 0.0 (0.0-0.2) X10*3/uL Abs Immat Gran (auto) 0.02 (0.00-0.03) X10*3/uL Absolute Neuts (auto) 6.3 (2.0-8.3) x10*3/uL Absolute Nucleated RBC 0.000 (0.0-0.012) X10*3/uL Nucleated RBC % (auto) 0.0 (0.0-0.2) /100WBC Sodium 138 (135-145) mmol/L Potassium 4.4 (3.3-5.1) mmol/L Chloride 104 (96-108) mmol/L Carbon Dioxide 26 (22-29) mmol/L Anion Gap 12 (12-20) BUN 13 (9-16) mg/dL Creatinine 1.02 (0.5-1.4) mg/dL Estim Creat Clear Calc 105.9 Estimated GFR > 60 Random Glucose 116 H (60-115) mg/dL Calcium 10.1 (8.4-10.2) mg/dL Troponin I High Sens < 3.5 (<3.5-35.0) ng/L Urine Opiates Screen (Not Detect) Urine Fentanyl Screen (Not Detect) Ur Barbiturates Screen (Not Detect) Ur Phencyclidine Scrn (Not Detect) Ur Amphetamines Screen (Not Detect) U Benzodiazepines Scrn (Not Detect) Urine Cocaine Screen (Not Detect) U Marijuana (THC) Screen (Not Detect) COVID-19 (NAY) (Negative) COVID-19 Clin Com 10/29/21 10/29/21 Range/Units 18:45 18:46 WBC (4.8-10.8) X10*3/uL RBC (4.60-5.80) X10*6/uL Hgb (14.0-18.0) g/dl Hct (42.0-52.0) % MCV (80.0-98.0) fL MCH (27.0-33.0) pg MCHC (31.0-36.0) g/dl RDW (11.0-16.0) % Plt Count (160-400) X10*3/uL MPV (9.4-12.4) fL Immature Gran % (Auto) (0.0-0.4) % Neut % (Auto) (45-73) % Lymph % (Auto) (20-40) % [place] % (Auto) (2-11) % Eos % (Auto) (0-4) % Baso % (Auto) (0-2) % Lymph # (Auto) (1.2-4.9) X10*3/uL [place] # (Auto) (0.1-1.2) X10*3/uL Eos # (Auto) (0.0-0.4) X10*3/uL Baso # (Auto) (0.0-0.2) X10*3/uL Abs Immat Gran (auto) (0.00-0.03) X10*3/uL Absolute Neuts (auto) (2.0-8.3) x10*3/uL Absolute Nucleated RBC (0.0-0.012) X10*3/uL Nucleated RBC % (auto) (0.0-0.2) /100WBC Sodium (135-145) mmol/L Potassium (3.3-5.1) mmol/L Chloride (96-108) mmol/L Carbon Dioxide (22-29) mmol/L Anion Gap (12-20) BUN (9-16) mg/dL Creatinine (0.5-1.4) mg/dL Estim Creat Clear Calc Estimated GFR Random Glucose (60-115) mg/dL Calcium (8.4-10.2) mg/dL Troponin I High Sens (<3.5-35.0) ng/L Urine Opiates Screen POSITIVE H (Not Detect) Urine Fentanyl Screen POSITIVE H (Not Detect) Ur Barbiturates Screen Not Detected (Not Detect) Ur Phencyclidine Scrn Not Detected (Not Detect) Ur Amphetamines Screen Not Detected (Not Detect) U Benzodiazepines Scrn Not Detected (Not Detect) Urine Cocaine Screen Not Detected (Not Detect) U Marijuana (THC) Screen POSITIVE H (Not Detect) COVID-19 (NAY) Negative (Negative) COVID-19 Clin Com See Note ECG Data Attestation: I personally reviewed and interpreted this ECG as follows: ECG interpretation date: 10/29/21 ECG interpretation time: 19:08 Prior ECG tracings: available for review Interpretation: Vent. rate 68 BPM MI interval 172 ms QRS duration 76 ms QT/QTc 398/423 ms P-R-T axes 71 64 64 Normal sinus rhythm Normal ECG When compared with ECG of 29-OCT-2021 19:08, Nonspecific T wave abnormality no longer evident in Inferior leads QT has shortened Discharge Plan Discharge Clinical Impression: Polysubstance abuse, Depression Patient Disposition: Home, Self-Care Instructions: Depression (ED), Polysubstance Abuse (ED) Additional Instructions: Please follow up with outpatient detox. Thank you for choosing this emergency department for evaluation. Please follow-up with primary care physician as needed. Return to the emergency department for any new, concerning, or worsening symptoms. Prescriptions: No Action clonidine HCl 0.2 mg tablet 0.1 mg PO Q8H Qty: 10 0RF ibuprofen 800 mg tablet 800 mg PO Q8H PRN (Reason: pain) Qty: 30 0RF methadone 10 mg Tablet 87 mg PO DAILY 0RF oxcarbazepine 150 mg Tablet 150 mg PO BID 30 Days Qty: 60 0RF benztropine 0.5 mg Tablet 0.5 mg PO TID PRN (Reason: EPS) Qty: 90 0RF Rx Instructions: take with haldol haloperidol 5 mg Tablet 5 mg PO TID PRN (Reason: Anxiety) Qty: 90 0RF Rx Instructions: take with cogentin lithium carbonate 300 mg Tablet Extended Release 600 mg PO BEDTIME 30 Days Qty: 60 0RF lithium carbonate 450 mg Tablet Extended Release 450 mg PO DAILY 30 Days Qty: 30 0RF albuterol sulfate 90 mcg/actuation HFA aerosol inhaler 2 puff inhalation QID PRN (Reason: shortness of breath or wheezing) Qty: 6.7 0RF olanzapine 10 mg tablet 10 mg PO BEDTIME Qty: 30 0RF Interventions: ED Discharge Assessment Last Done: 10/29/21 20:25 Discharge Date/Time: 10/29/21 20:44
--- NOTE | 2021-10-29 18:21 | ECG_ITS ---
Test Reason : MEDICAL CLEARANCE Blood Pressure : / mmHG Vent. Rate : 080 BPM Atrial Rate : 080 BPM P-R Int : 168 ms QRS Dur : 070 ms QT Int : 440 ms P-R-T Axes : 078 068 033 degrees QTc Int : 507 ms Normal sinus rhythm with sinus arrhythmia Normal ECG When compared with ECG of 29-MAY-2021 14:08, QT has lengthened Referred By: Pallavi Lima Electronically Signed By:
[2021-10-29] MEDS: diphenhydrAMINE HCL 25 MG TABLET 50 MG PO (18:29)
[2021-10-29] MEDS: Ondansetron ODT 4 MG TAB.RAPDIS TRANSLINGU (18:29)
--- NOTE | 2021-10-29 18:36 | MHC.RECOVSUP ---
? Reason for consult Recovery Support o Current location: [facility] o Identified substance use concern: Benzo <del>-</del> <del>Overdose</del> - Withdrawal - Seeking ATS (detox) - Support ? Intervention: o A<del>TS</del> <del>bed</del> <del>search</del> <del>started/completed/in</del> <del>process</del> o <del>MAT</del> <del>started</del> <del>or</del> <del>to</del> <del>be</del> <del>started</del> o Community resources provided o Harm reduction discussion ? Plan: <del>o</del> <del>Referral</del> <del>to</del> <del>[facility]</del> <del>o</del> <del>Bed</del> <del>search</del> <del>in</del> <del>progress</del> <del>to</del> <del>o</del> <del>Follow</del> <del>up</del> <del>tomorrow</del> <del>o</del> <del>Patient</del> <del>awaiting</del> <del>crisis</del> <del>evaluation</del> o Patient to follow up with [facility] after discharge ? Additional information: Met with Patient.. We talk harm reduction and [facility] [place]. Patient stated that that would be great cause he lives around there...
[2021-10-29 18:51] LABS: MANUAL DIFF FLAG NO
[2021-10-29 19:04] VITALS: BP 119/82; PULSE 81; TEMP 37.1; O2SAT 97
[2021-10-29 19:07] LABS: Anion Gap 12 (12-20); Blood Urea Nitrogen 13 mg/dL (9-16); Calcium 10.1 mg/dL (8.4-10.2); Carbon Dioxide 26 mmol/L (22-29); Chloride 104 mmol/L (96-108); Creatinine Clr Calc Pharmacy 105.9; Estimated Glomerular Filt Rate > 60; Glucose Random 116 mg/dL (60-115); Potassium 4.4 mmol/L (3.3-5.1); Sodium 138 mmol/L (135-145)
[2021-10-29 19:09] LABS: Amphetamine Screen Urine Not Detected (Not Detect); Barbiturates, Urine Not Detected (Not Detect); Benzodiazepines Screen Urine Not Detected (Not Detect); Cannabinoid Screen Urine POSITIVE (Not Detect); Cocaine Screen Urine Not Detected (Not Detect); Fentanyl, urine POSITIVE (Not Detect); Opiate Screen Urine POSITIVE (Not Detect); Phencyclidine Screen Urine Not Detected (Not Detect)
[2021-10-29 19:11] LABS: COVID-19 Test Negative (Negative)
[2021-10-29 19:13] LABS: Troponin-I High Sensitivity < 3.5 ng/L (<3.5-35.0)
[2021-10-29 19:18] LABS: Basophils Percent Auto 0.5 % (0-2); Eosinophils Absolute Auto 0.1 X10*3/uL (0.0-0.4); Eosinophils Percent Auto 1.2 % (0-4); Hematocrit 43.3 % (42.0-52.0); Hemoglobin 14.9 g/dl (14.0-18.0); Imm Gran Abs Auto 0.02 X10*3/uL (0.00-0.03); Imm Gran Pct Auto 0.2 % (0.0-0.4); Lymphocytes Absolute Auto 1.7 X10*3/uL (1.2-4.9); Lymphocytes Percent Auto 19.4 % (20-40); Mean Corpuscular HGB Conc 34.4 g/dl (31.0-36.0); Mean Corpuscular Hemoglobin 28.9 pg (27.0-33.0); Mean Corpuscular Volume 83.9 fL (80.0-98.0); Mean Platelet Volume 10.6 fL (9.4-12.4); Monocytes Absolute Auto 0.5 X10*3/uL (0.1-1.2); Monocytes Percent Auto 5.9 % (2-11); Neutrophils Absolute Auto 6.3 x10*3/uL (2.0-8.3); Neutrophils Percent Auto 72.8 % (45-73); Platelet Count 193 X10*3/uL (160-400); Red Blood Count 5.16 X10*6/uL (4.60-5.80); Red Cell Distribution Width 12.1 % (11.0-16.0); White Blood Count 8.6 X10*3/uL (4.8-10.8)
--- NOTE | 2021-10-29 20:06 | MHC.CARE ---
CARE team met with pt for risk consult. Pt reports that he presented to the ED because he has been buying klonipans off the street and is now withdrawing because he has not used in 5 days. He reports he see's his psychiatrist on Monday as well as therapist. Pt endorses vauge SI no plan or intent in the context of withdrawing from the benzos. He states he has not been able to sleep for a couple of days. Pt endorses intrusive thoughts but reports he feels safe returning home. He is hoping for medication to reduce his symptoms until he can see his psychiatrist on Monday. Plan was discussed with RN and Pallavi Amaro provider. Pt also met with recovery team.
[2021-10-29 20:18] VITALS: BP 131/68; PULSE 83; RESP 18; TEMP 36.7; O2SAT 99
== END 2021-10-29 20:44 | disposition home or self-care (01) ==
PROVIDERS: Nurse Practitioner Family; Emergency Provider Internal Medicine; PCP Internal Medicine
DX: F33.1 Major depressive disorder, recurrent, moderate (principal); R45.851 Suicidal ideations; F19.19 Other psychoactive substance abuse with unspecified psychoactive substance-induced disorder; F17.210 Nicotine dependence, cigarettes, uncomplicated; Z71.6 Tobacco abuse counseling; Z20.822 Contact with and (suspected) exposure to COVID-19; Z79.899 Other long term (current) drug therapy
CPT/HCPCS: 36415; 80048; 80307; 84484; 85025; 87635; 93005; 99283; Q0163

== ENCOUNTER 2021-10-30 18:14 | Emergency (ER) | payer MEDICAID, SELFPAY ==
[2021-10-30 18:16] VITALS: BP 114/81; PULSE 92; RESP 18; TEMP 36.4; O2SAT 95; BMI 23.0
--- NOTE | 2021-10-30 19:50 | ED.GENADULT ---
HPI - General Adult General Chief complaint: General Medical Stated complaint: sinus infection Source: patient Mode of arrival: ambulatory Limitations: no limitations History of Present Illness HPI narrative: 36-year-old male presents with upper respiratory symptoms consistent with sinusitis. Patient states that he does get recurrent sinusitis, has yellow-green mucus from his nose. Onset (ago): day(s) (1) Location: head and face Radiation: non-radiation Severity: mild Severity scale (1-10): 4 Quality: dull and constant Pain Consistency: constant Relieving factors: none Exacerbating factors: movement (Leaning forward and blowing his nose) Associated symptoms: denies other symptoms Treatments prior to arrival: none Related Data Home Medications Medication Instructions Recorded Confirmed methadone 10 mg tablet 87 mg PO DAILY 05/25/21 05/25/21 Previous Rx's Medication Instructions Recorded clonidine HCl 0.2 mg tablet 0.1 mg PO Q8H #10 tab 06/06/20 ibuprofen 800 mg tablet 800 mg PO Q8H PRN #30 tab 07/01/20 albuterol sulfate 90 mcg/actuation 2 puff INHALATION QID PRN #6.7 g 06/04/21 aerosol inhaler benztropine 0.5 mg tablet 0.5 mg PO TID PRN #90 tab 06/04/21 haloperidol 5 mg tablet 5 mg PO TID PRN #90 tab 06/04/21 lithium carbonate 300 mg 600 mg PO BEDTIME 30 Days #60 tab 06/04/21 tablet,extended release lithium carbonate 450 mg 450 mg PO DAILY 30 Days #30 tab 06/04/21 tablet,extended release olanzapine 10 mg tablet 10 mg PO BEDTIME #30 tab 06/04/21 oxcarbazepine 150 mg tablet 150 mg PO BID 30 Days #60 tab 06/04/21 azithromycin 250 mg tablet 250 mg PO DAILY 4 Days #4 tab 10/30/21 ibuprofen 600 mg tablet 600 mg PO Q6H PRN #30 tab 10/30/21 Allergies Allergy/AdvReac Type Severity Reaction Status Date / Time mayonnaise [MAYONNAISE] Allergy Intermediate THROAT AND Verified 10/06/21 09:03 TONGUE ITCH quetiapine [From SEROQUEL] Allergy Intermediate DYSTONIA Verified 10/06/21 09:03 cat dander [CATS] Allergy Unknown WATERY Verified 10/06/21 09:03 EYES, SNEEZING dog dander [DOG] Allergy Unknown UNKNOWN Verified 10/06/21 09:03 paroxetine [From PAXIL] Allergy Unknown FLU LIKE Verified 10/06/21 09:03 SYMPTOMS penicillin V Allergy Unknown Unknown Verified 10/06/21 09:03 Penicillins [PENICILLINS] Allergy Unknown SWELLING Verified 10/06/21 09:03 SEAFOOD Allergy Severe DIFFICULTY Uncoded 05/12/21 00:16 BREATHING Review of Systems Review of Systems: Constitutional: No Fever, No Chills ENT/Mouth: Positive sinus pressure, positive nasal drainage, No Ear Pain, No Hoarseness, No sore throat Eyes: No Eye Pain, No Swelling, No Redness, No Foreign Body Cardiovascular: No Chest Pain, No SOB Respiratory: No Cough, No Dyspnea Gastrointestinal: No Nausea, No Vomiting, No Diarrhea, No abdominal Pain Genitourinary: No Dysuria, No Hematuria Musculoskeletal: No joint pain, No Myalgias, No Joint Swelling Skin: No Skin lacerations, No rash Neuro: No Weakness, No Numbness, No Paresthesias, No Loss of Consciousness, No Dizziness, No Headache Psych: No Anxiety/Panic, No Depression Heme/Lymph: no easy bruising, no Lymphadenopathy Endocrine: No Polyuria, No Polydipsia Yes all other systems are reviewed and are negative [facility] Past Medical History Attestation statement: The following information was validated with the patient. Source: old records reviewed Medical History ACL (anterior cruciate ligament) rupture Asthma Hepatitis C Hepatitis C antibody positive in blood Knee cartilage, torn, right Substance abuse withdrawal Social History Social History Household Members: Family Household Members Other:: 3 Housing: House Do you presently have visiting nurse or other home services: No Unable to assess alcohol history related to: Unknown Alcohol intake: current Alcohol intake frequency: a few times a month Alcohol type: beer and hard liquor Patient Tobacco Use Status: Current everyday Tobacco user Tobacco use type: Cigarette Cigarettes Per Day: 10 Years Smoked: 15 e-Cigarette/Vaping Use: Never Used Substance Use Type: Sedatives Advance Directives: No Advance Directives Information Provided: No service: No Sexual orientation: Straight/Heterosexual Physical Exam ED Vital Signs: Vital Signs - 24 hr 10/30/21 18:16 10/30/21 20:00 Temperature 97.5 F 97.8 F Pulse Rate 92 94 Respiratory Rate 18 18 Blood Pressure 114/81 114/81 Pulse Oximetry 95 95 BMI result Body Mass Index 23.0 Appearance: Alert. Oriented X3. No acute distress. Eyes: Pupils equal, round and reactive to light. EOMI. Sclera nonicteric. ENT: Pharynx normal. Tympanic membranes intact. Nares patent. Tenderness noted to palpation to the frontal sinuses. Neck: Normal inspection. Neck supple. CVS: Normal heart rate and rhythm. Pulses normal. Respiratory: No respiratory distress. Breath sounds normal. Abdomen: Soft and nontender. Skin: Skin warm and dry. Normal skin color. Normal skin turgor. Extremities: No lower extremity edema. Gait well-balanced well coordinated. Neuro: No motor deficit. No sensory deficit. Cranial nerves 2-12 intact. Course Course Course Narrative: 36-year-old male presents with symptoms consistent with sinusitis. He was evaluated yesterday for crisis, did not mention that he had upper respiratory symptoms. Stated that today he noted green yellow mucus from his nose and feels pressure when leaning forward in his frontal sinus. HEENT exam otherwise negative, will treat with azithromycin as patient is allergic penicillins patient does significant infection heroin. Patient verbalized understanding of and agrees to plan of care discharge home. Verbalized understanding of signs and symptoms indicating need for emergent intervention Medical Decision Making Differential Diagnosis Differential Diagnosis: Sinusitis, viral syndrome, pharyngitis, otitis media Medical Records Medical records reviewed: Yes I reviewed the patient's medical records. Discharge Plan Discharge Clinical Impression: Sinusitis Patient Disposition: Home, Self-Care Instructions: Sinusitis (ED) Additional Instructions: You were evaluated for upper respiratory symptoms consistent with sinusitis. Please take azithromycin as directed. For pain use Motrin 600 mg every 6 hours as needed. Alternate with Tylenol 650 mg every 6 hours as needed. Thank you for choosing this emergency department for evaluation. Please follow-up with primary care physician as needed. Return to the emergency department for any new, concerning, or worsening symptoms. Prescriptions: New azithromycin 250 mg tablet 250 mg PO DAILY 4 Days Qty: 4 0RF Rx Instructions: Start 10/31/2021 ibuprofen 600 mg tablet 600 mg PO Q6H PRN (Reason: pain) Qty: 30 0RF No Action clonidine HCl 0.2 mg tablet 0.1 mg PO Q8H Qty: 10 0RF ibuprofen 800 mg tablet 800 mg PO Q8H PRN (Reason: pain) Qty: 30 0RF methadone 10 mg Tablet 87 mg PO DAILY 0RF oxcarbazepine 150 mg Tablet 150 mg PO BID 30 Days Qty: 60 0RF benztropine 0.5 mg Tablet 0.5 mg PO TID PRN (Reason: EPS) Qty: 90 0RF Rx Instructions: take with haldol haloperidol 5 mg Tablet 5 mg PO TID PRN (Reason: Anxiety) Qty: 90 0RF Rx Instructions: take with cogentin lithium carbonate 300 mg Tablet Extended Release 600 mg PO BEDTIME 30 Days Qty: 60 0RF lithium carbonate 450 mg Tablet Extended Release 450 mg PO DAILY 30 Days Qty: 30 0RF albuterol sulfate 90 mcg/actuation HFA aerosol inhaler 2 puff inhalation QID PRN (Reason: shortness of breath or wheezing) Qty: 6.7 0RF olanzapine 10 mg tablet 10 mg PO BEDTIME Qty: 30 0RF Interventions: ED Discharge Assessment Last Done: 10/30/21 20:23 Discharge Date/Time: 10/30/21 20:27
[2021-10-30 20:00] VITALS: BP 114/81; PULSE 94; RESP 18; TEMP 36.6; O2SAT 95
[2021-10-30] MEDS: Azithromycin 500 MG TABLET PO (20:01)
[2021-10-30] MEDS: Ibuprofen 600 MG TABLET PO (20:01)
== END 2021-10-30 20:27 | disposition home or self-care (01) ==
PROVIDERS: Emergency Provider Internal Medicine; PCP Internal Medicine
DX: J32.9 Chronic sinusitis, unspecified (principal); F17.200 Nicotine dependence, unspecified, uncomplicated; J45.909 Unspecified asthma, uncomplicated
CPT/HCPCS: 99283; 99284

== ENCOUNTER 2022-04-12 13:07 | Outpatient (REF) | payer MEDICAID, SELFPAY ==
--- NOTE | ~2022-04-12 | CT_ITS ---
EXAMINATION: CT CHEST WITHOUT CONTRAST CLINICAL INFORMATION: Follow-up pulmonary nodule. COMPARISON: CT chest 10/15/2021. TECHNIQUE: Multidetector volumetric CT imaging of the chest was done. Axial MIP volume rendering provided. Sagittal and coronal reformatted images were obtained. This CT examination was performed using dose optimization techniques as appropriate, variously including the following: *Automated exposure control *Adjustment of mA and/or kV according to patient size (this includes techniques or standardized protocols for targeted exams where dose is matched to indication/reason for exam; i.e. extremities or head) *Use of iterative reconstruction technique DLP: 147 mGy-cm. FINDINGS: MANAGER IMAGE: Well-expanded lungs. LUNGS: The lungs are expanded and clear of acute pneumonic consolidation. There is a 2 mm subpleural calcified nodule left upper lobe axial image 97/6, a ground-glass 6 mm opacity left upper lobe axial image 113/6, new intrabronchiolar 5 mm nodule right upper lobe axial image 208/6, a 3 mm nodule right upper lobe and adjacent to the minor fissure axial image 250/6. Focal atelectatic changes are seen in the lung bases. MEDIASTINUM: The thyroid lobes are symmetrical and normal. No abnormal-sized mediastinal or hilar lymph nodes seen. Central trachea and the bronchi are widely patent. There is no pericardial effusion seen. Heart size and the great vessels are normal caliber. PLEURA: There is no pleural effusion. No pleural mass or thickening. AXILLA: No lymphadenopathy. UPPER ABDOMEN: Visualized liver, spleen, pancreas and bilateral adrenal glands are unremarkable. There is radiopaque dense of ingested food or medications in the stomach. OSSEOUS STRUCTURES: No lytic or sclerotic process seen. CT/CT chest wo con IMPRESSION: Several bilateral pulmonary nodules as described above in the region of 2 to 3 mm. They are stable. There is an intrabronchiolar nodule or debris/mucus in the right middle lobe bronchial likely secondary to bronchial airway disease. No abnormal mediastinal or axillary lymphadenopathy. Multiple radiopaque recently orally ingested food particles in the stomach. Based on clinical history, a follow-up can be performed in a year. Fleischner guidelines were followed.
== END 2022-04-12 13:08 | disposition home or self-care (01) ==
LOC: HO.CT 13:07
PROVIDERS: PCP Internal Medicine; Visit Provider Internal Medicine Pulmonary Disease
DX: R91.8 Other nonspecific abnormal finding of lung field (principal)
CPT/HCPCS: 71250

== ENCOUNTER → 2022-05-02 11:18 | Outpatient (BNVA) | payer MEDICAID, SELFPAY | PROVIDERS: PCP Internal Medicine; Visit Provider Internal Medicine Pulmonary Disease | DX: J45.20 Mild intermittent asthma, uncomplicated (principal); R91.8 Other nonspecific abnormal finding of lung field; F17.210 Nicotine dependence, cigarettes, uncomplicated | CPT/HCPCS: 99212 ==

== ENCOUNTER 2022-06-16 11:32 | Emergency (ER) | payer MEDICAID, SELFPAY ==
--- NOTE | ~2022-06-16 | XR_ITS ---
EXAMINATION: XR LUMBOSACRAL SPINE CLINICAL INFORMATION: Low back pain COMPARISON: None TECHNIQUE: Three views of the lumbosacral spine. FINDINGS: Vertebral body heights and disc space heights are preserved. No fracture or destructive process. Large stool burden does obscure detail. The SI joints however appear symmetric. XR/XR lumbar spine 2-3V IMPRESSION: Unremarkable study. Constipated colon.
[2022-06-16 11:55] VITALS: BP 100/70; BP 112/72; PULSE 80; PULSE 83; RESP 18; TEMP 37.1; O2SAT 100; O2SAT 95; BMI 22.9
--- NOTE | 2022-06-16 13:02 | ED.BACK ---
HPI - Back Pain/Injury General Chief Complaint: Back Pain/Injury Stated Complaint: SEVERE LOWER BACK PAIN S/P LIFTING Time Seen by Provider: 06/16/22 12:14 Source: patient Mode of arrival: ambulatory Limitations: no limitations History of Present Illness HPI Narrative: Patient is a 36-year-old male with a PMH of asthma, depression, pulmonary nodules, polysubstance abuse, PTSD presenting with 10/10 right stabbing back pain. Patient states that he was bending down and felt a pop in his lower back this morning. The pain has stayed local to his lower back, the patient denies pain radiating down the leg. The patient states that the pain was so bad that he needed EMS to pick him up and carry him down the stairs, he states he is not able to straighten his leg without excruciating pain, and he has only been able to walk on his toes . The patient was given ketorolac by EMS with minimal relief. The patient denies any history of trauma, fever, chills, and weakness. The patient denies saddle anesthesia, and loss of bowel and bladder function. Of note patient is on methadone. MD elicited complaint: back pain Onset (ago): hour(s) (5) Timing: constant Severity: severe Pain scale (0-10): 10 Quality: sharp and stabbing Location: right lower back Radiation: none Exacerbating factors: movement, walking and other (Straightening his right leg) Context: bending Associated symptoms: difficulty walking Work related injury: No Related Data Previous Rx's Medication Instructions Recorded albuterol sulfate 90 mcg/actuation 2 puff inhalation QID PRN 06/04/21 aerosol inhaler shortness of breath or wheezing #6.7 grams cyclobenzaprine 10 mg tablet 10 mg PO TID PRN muscle spasm #14 06/16/22 tabs ibuprofen 800 mg tablet 800 mg PO Q8H PRN pain #20 tabs 06/16/22 lidocaine 5 % topical patch 1 patch topical DAILY #15 ea 06/16/22 Allergies Allergy/AdvReac Type Severity Reaction Status Date / Time mayonnaise [MAYONNAISE] Allergy Intermediate THROAT AND Verified 05/02/22 11:19 TONGUE ITCH quetiapine [From SEROQUEL] Allergy Intermediate DYSTONIA Verified 05/02/22 11:19 cat dander [CATS] Allergy Unknown WATERY Verified 05/02/22 11:19 EYES, SNEEZING dog dander [DOG] Allergy Unknown UNKNOWN Verified 05/02/22 11:19 paroxetine [From PAXIL] Allergy Unknown FLU LIKE Verified 05/02/22 11:19 SYMPTOMS penicillin V Allergy Unknown Unknown Verified 05/02/22 11:19 Penicillins [PENICILLINS] Allergy Unknown SWELLING Verified 05/02/22 11:19 SEAFOOD Allergy Severe DIFFICULTY Uncoded 05/12/21 00:16 BREATHING Review of Systems Review of Systems: Constitutional: No Fever, No Chills ENT/Mouth: No sore throat, No Rhinorrhea, No Swallowing Difficulty Eyes: No Eye Pain, No Swelling, No Redness Cardiovascular: No Chest Pain, No SOB, Respiratory: No Cough, No Sputum, No Wheezing, No dyspnea Gastrointestinal: No Nausea, No Vomiting, No Diarrhea, No abdominal Pain, No Hematochezia, No Melena Genitourinary: No Dysuria, No Urinary Frequency, No Hematuria Musculoskeletal: +10/10 right sided back pain. No joint pain, No Myalgias Skin: No Skin Lesions, No rash Neuro: No Weakness, No Numbness, No Dizziness, No Headache Psych: No Anxiety/Panic, No Depression Heme/Lymph: No Bruising Yes all other systems are reviewed and are negative [facility] Past Medical History Medical History ACL (anterior cruciate ligament) rupture Asthma Hepatitis C Hepatitis C antibody positive in blood Knee cartilage, torn, right Substance abuse withdrawal Social History Social History Household Members: Family Household Members Other:: 3 Housing: House Do you presently have visiting nurse or other home services: No Unable to assess alcohol history related to: Unknown Alcohol intake: current Alcohol intake frequency: a few times a month Alcohol type: beer and hard liquor Patient Tobacco Use Status: Current everyday Tobacco user Tobacco use type: Cigarette Cigarettes Per Day: 10 Years Smoked: 15 e-Cigarette/Vaping Use: Never Used Substance Use Type: Sedatives Advance Directives: No Advance Directives Information Provided: No service: No Sexual orientation: Straight/Heterosexual Physical Exam Vital Signs: Vital Signs: Last Vital Signs Temp 98.1 F 06/16/22 16:12 Pulse 69 06/16/22 16:12 Resp 17 06/16/22 16:12 BP 106/63 06/16/22 16:12 Pulse Ox 97 06/16/22 16:12 O2 Del Method 06/16/22 16:12 BMI result Body Mass Index 22.9 Appearance: Alert. Oriented X3. No acute distress. Eyes: Pupils equal, round and reactive to light. ENT: Pharynx normal. Neck: Normal inspection. Neck supple. CVS: Normal heart rate and rhythm. Pulses normal. Respiratory: No respiratory distress. Breath sounds normal. Abdomen: Soft and nontender. Skin: Skin warm and dry. Normal skin color. Normal skin turgor. No rashes. Extremities: No lower extremity edema. Neuro: Oriented X 3. No motor deficit. No sensory deficit. Patient had a steady gait, though walked on balls of feet. Musculoskeletal: Pain out of proportion, exam limited due to pain. Pain on left side of para-spinous muscles. Course Course Course Narrative: 36-year-old male with a PMH of asthma, depression, pulmonary nodules, polysubstance abuse, PTSD presenting with 10/10 right stabbing back pain. Physical exam significant for soft tissue tenderness of the left lower lumbar area. He had no weakness and no loss of sensation. His legs were held in flexion due to pain. No lower back red flag symptoms. Plan: - Pain management: Lidocaine topical patch, Prednisone, Oxycodone, Cyclobenzprine, pain is 10/10. Will reassess. - X-ray of lumbar spine Reevaluation(s) Reevaluation #1: X-ray of the spine is unremarkable. His pain is improved to a 6/10. He is ambulating. He is stable for discharge home with supportive care, treatment for muscle strain and spasm of the low back. Discharge Plan Discharge Clinical Impression: Strain of lumbar region Patient Disposition: Home, Self-Care Instructions: Low Back Strain (ED), Lower Back Exercises (ED) Additional Instructions: Your x-ray today was normal. Your pain is most likely due to muscle strain and spasm. No bending, lifting or twisting. Use ice several times per day for 20 minutes at a time for the next 48 hours and then change to heat. Take medications as prescribed to help with pain and discomfort. Follow up with your Primary Care Doctor this week. If your pain worsens, if you develop new numbness, tingling, weakness, loss of function or incontinence call 911 or come back to the ER right away for evaluation. Prescriptions: New cyclobenzaprine 10 mg tablet 10 mg PO TID PRN (Reason: muscle spasm) Qty: 14 0RF ibuprofen 800 mg tablet 800 mg PO Q8H PRN (Reason: pain) Qty: 20 0RF lidocaine 5 % adhesive patch,medicated 1 patch topical DAILY Qty: 15 0RF Rx Instructions: leave on most painful area for up to 12 hrs No Action albuterol sulfate 90 mcg/actuation HFA aerosol inhaler 2 puff inhalation QID PRN (Reason: shortness of breath or wheezing) Qty: 6.7 0RF Referrals: Molly Ford MD [Primary Care Provider] -
[2022-06-16] MEDS: oxyCODONE HCl Immed Release 5 MG TABLET 10 MG PO ×2 (13:14→16:29)
[2022-06-16] MEDS: Cyclobenzaprine HCl 10 MG TABLET PO (13:14)
[2022-06-16] MEDS: Lidocaine 4 % Patch ADH..PATCH 1 PATCH TRANSDERMA (13:16)
[2022-06-16] MEDS: predniSONE 10 MG TABLET 50 MG PO (13:19)
[2022-06-16 16:12] VITALS: BP 106/63; PULSE 69; RESP 17; TEMP 36.7; O2SAT 97
[2022-06-16] MEDS: Ketorolac Tromethamine 30 MG/ML VIAL IVPUSH (16:30)
== END 2022-06-16 16:43 | disposition home or self-care (01) ==
PROVIDERS: Emergency Provider Student in an Organized Health Care Education/Training Program; PCP Internal Medicine
DX: S39.012A Strain of muscle, fascia and tendon of lower back, initial encounter (principal); X50.9XXA Other and unspecified overexertion or strenuous movements or postures, initial encounter; F19.10 Other psychoactive substance abuse, uncomplicated; F11.20 Opioid dependence, uncomplicated; F17.210 Nicotine dependence, cigarettes, uncomplicated; Y93.89 Activity, other specified; Y92.019 Unspecified place in single-family (private) house as the place of occurrence of the external cause; Y99.9 Unspecified external cause status
CPT/HCPCS: 72100; 96372; 99284; J1885

== ENCOUNTER 2022-10-08 17:40 | Emergency (ER) | payer MEDICAID, OTHER, SELFPAY ==
[2022-10-08 17:49] VITALS: BP 147/92; PULSE 120; RESP 18; TEMP 37.4; O2SAT 97; BMI 25.5
--- NOTE | 2022-10-08 17:52 | ED.PSYCH ---
HPI - Psych General Chief Complaint: Psychiatric Symptoms <Pallavi Lima NP - Last Filed: 10/09/22 01:42> Stated Complaint: SI, withdrawl <Pallavi Lima NP - Last Filed: 10/09/22 01:42> Time Seen by Provider: 10/08/22 17:52 <DUC Price Last Filed: 10/09/22 01:42> Source: patient <DUC Price Last Filed: 10/09/22 01:42> Mode of arrival: ambulatory <Pallavi Lima NP - Last Filed: 10/09/22 01:42> Limitations: no limitations <Pallavi Lima NP - Last Filed: 10/09/22 01:42> History of Present Illness HPI Narrative: 37-year-old male presents for suicidal ideation and homicidal ideation. Patient states that he has a short temper, was at [facility], stated that he threatened to kill the nurse for not giving him appropriate medications for his withdrawal symptoms. <Pallavi Lima NP - Last Filed: 10/09/22 01:42> MD complaint: suicidal ideation, feels depressed, homicidal ideation and substance abuse <Pallavi Lima NP - Last Filed: 10/09/22 01:42> Onset (ago): year(s) <Pallavi Lima NP - Last Filed: 10/09/22 01:42> Duration: constant <Pallavi Lima NP - Last Filed: 10/09/22 01:42> History of same: Yes <Pallavi Lima NP - Last Filed: 10/09/22 01:42> Relieving factors: none <Pallavi Lima NP - Last Filed: 10/09/22 01:42> Context: significant life stressor <DUC Price Last Filed: 10/09/22 01:42> Associated psychiatric symptoms: depression, suicidal ideation and homicidal ideation <Pallavi Lima NP - Last Filed: 10/09/22 01:42> Treatments prior to arrival: placed on mental health hold <DUC Price Last Filed: 10/09/22 01:42> If self harm: admits thoughts of self harm <DUC Price Last Filed: 10/09/22 01:42> Related Data Home Medications: Home Medications Medication Instructions Recorded Confirmed clonidine HCl 0.1 mg tablet 1 tab PO BID PRN Anxiety 10/08/22 10/08/22 fluoxetine 20 mg capsule 1 cap PO QAM 10/08/22 10/08/22 olanzapine 2.5 mg tablet 1 tab PO BID 10/08/22 10/08/22 <DUC Price Last Filed: 10/09/22 01:42> Allergies/Adverse Reactions: Allergies Allergy/AdvReac Type Severity Reaction Status Date / Time mayonnaise [MAYONNAISE] Allergy Intermediate THROAT AND Verified 05/02/22 11:19 TONGUE ITCH quetiapine [From SEROQUEL] Allergy Intermediate DYSTONIA Verified 05/02/22 11:19 cat dander [CATS] Allergy Unknown WATERY Verified 05/02/22 11:19 EYES, SNEEZING dog dander [DOG] Allergy Unknown UNKNOWN Verified 05/02/22 11:19 paroxetine [From PAXIL] Allergy Unknown FLU LIKE Verified 05/02/22 11:19 SYMPTOMS penicillin V Allergy Unknown Unknown Verified 05/02/22 11:19 Penicillins [PENICILLINS] Allergy Unknown SWELLING Verified 05/02/22 11:19 SEAFOOD Allergy Severe DIFFICULTY Uncoded 05/12/21 00:16 BREATHING <DUC Price Last Filed: 10/09/22 01:42> Review of Systems Review of Systems: Constitutional: No Fever, No Chills Cardiovascular: No Chest Pain, No SOB Respiratory: No Cough, No Sputum, No Dyspnea Neuro: No Weakness, No Numbness, No Paresthesias, No Dizziness, No Headache Psych: positive Anxiety, positive Depression, positive SI, positive HI, positive substance abuse <DUC Price Last Filed: 10/09/22 01:42> Yes all other systems are reviewed and are negative <Pallavi Lima NP - Last Filed: 10/09/22 01:42> PMFSH Past Medical History Attestation statement: The following information was validated with the patient. <DUC Price Last Filed: 10/09/22 01:42> Source: old records reviewed <DUC Price Last Filed: 10/09/22 01:42> Medical History: Medical History ACL (anterior cruciate ligament) rupture Asthma Hepatitis C Hepatitis C antibody positive in blood Knee cartilage, torn, right Substance abuse withdrawal <Pallavi Lima NP - Last Filed: 10/09/22 01:42> Social History Social History: Social History Household Members: Family Household Members Other:: 3 Housing: House Do you presently have visiting nurse or other home services: No Unable to assess alcohol history related to: Unknown Alcohol intake: never Patient Tobacco Use Status: Current everyday Tobacco user Tobacco use type: Cigarette Cigarettes Per Day: 10 Years Smoked: 15 Smoked in Last 30 Days: Yes e-Cigarette/Vaping Use: Never Used Use of substances other than those prescribed or required for medical reasons: Yes Substance Use Type: Sedatives Advance Directives: No Advance Directives Information Provided: No Healthcare Proxy: No Guardian: No service: No Sexual orientation: Straight/Heterosexual <Pallavi Lima NP - Last Filed: 10/09/22 01:42> Physical Exam Vital Signs: Vital Signs: Last Vital Signs Temp 98.4 F 10/10/22 01:45 Pulse 76 10/10/22 01:45 Resp 16 10/10/22 01:45 BP 109/79 10/10/22 01:45 Pulse Ox 97 10/10/22 01:45 O2 Del Method 10/10/22 01:45 BMI result Body Mass Index 25.5 <Pallavi Lima NP - Last Filed: 10/09/22 01:42> Vital Signs: Last Vital Signs Temp 98.4 F 10/10/22 01:45 Pulse 76 10/10/22 01:45 Resp 16 10/10/22 01:45 BP 109/79 10/10/22 01:45 Pulse Ox 97 10/10/22 01:45 O2 Del Method 10/10/22 01:45 BMI result Body Mass Index 25.5 <Jeronimo Potts MD - Last Filed: 10/10/22 14:11> Appearance: Alert. Oriented X3. Moderate emotional distress. Eyes: Pupils equal, round and reactive to light. Neck: Normal inspection. Neck supple. CVS: Normal heart rate and rhythm. Pulses normal. Respiratory: No respiratory distress. Breath sounds normal. Skin: Skin warm and dry. Normal skin color. Normal skin turgor. Extremities: Gait well-balanced well coordinated Neuro: No motor deficit. No sensory deficit. Cranial nerves 2-12 intact <Pallavi Lima NP - Last Filed: 10/09/22 01:42> Course Course Course Narrative: A 37-year-old male presents for suicidal ideation, homicidal ideation, and substance abuse. Patient was discharged from [facility] for violent behavior, verbally threatened to kill 1 of the nurses because patient felt that he was not receiving adequate medication for his withdrawal symptoms and he did not like how the nurse touched his arm while she was obtaining vital signs. Stated that he punched things, and destroyed his room. Patient reports to have suicidal ideation, thinks about killing himself every day, has been taking Klonopin off the streets, about 400 pills over the past month of unknown strength. Patient is crying, states to be in massive emotional distress and cannot come down. Will order Zyprexa and Klonopin at this time. I do feel that patient is withdrawing at this time. 21:23 patient will be re-evaluated in the morning. Physician observation at this time <Pallavi Lima NP - Last Filed: 10/09/22 01:42> Reevaluation(s) Reevaluation #1: physician observation continued, he was agitated last night he received ativan multiple times received his morning meds and seem more settled. Last night he put the Laith around his neck <Jeronimo Potts MD - Last Filed: 10/10/22 14:11> Time: 08:47 <Jeronimo Potts MD - Last Filed: 10/10/22 14:11> Reevaluation #2: seen and cleared by crisis <Jeronimo Potts MD - Last Filed: 10/10/22 14:11> Time: 14:11 <Jeronimo Potts MD - Last Filed: 10/10/22 14:11> Medications Administered Generic Name Dose Route Start Last Admin Trade Name Freq PRN Reason Stop Dose Admin Clonidine HCl 0.1 mg 10/08/22 22:54 10/10/22 07:30 Clonidine Hcl 0.1 Mg Tablet PO 0.1 mg BID PRN Administration Anxiety Protocol Fluoxetine HCl 20 mg 10/09/22 09:00 10/10/22 08:19 Fluoxetine Hcl 20 Mg Capsule PO 20 mg DAILY GENARO Administration Olanzapine 2.5 mg 10/09/22 09:00 10/10/22 08:19 Olanzapine 2.5 Mg Tablet PO 2.5 mg BID GENARO Administration Discontinued Medications Generic Name Dose Route Start Last Admin Trade Name Freq PRN Reason Stop Dose Admin Clonazepam 2 mg 10/08/22 18:00 10/08/22 18:15 Clonazepam 1 Mg Tablet PO 10/08/22 18:01 2 mg ONCE ONE Administration Diphenhydramine HCl 50 mg 10/09/22 09:46 10/09/22 09:50 Diphenhydramine Hcl 50 Mg/Ml Vial IM 10/09/22 09:47 50 mg ONCE ONE Administration Haloperidol Lactate 5 mg 10/09/22 09:46 10/09/22 09:50 Haloperidol Lactate 5 Mg/Ml Vial IM 10/09/22 09:47 5 mg STAT STA Administration Lorazepam 2 mg 10/09/22 09:46 10/09/22 09:50 Lorazepam 2 Mg/Ml Vial IM 10/09/22 09:47 2 mg ONCE ONE Administration Lorazepam 2 mg 10/09/22 20:02 10/09/22 20:08 Lorazepam 1 Mg Tablet PO 10/09/22 20:03 2 mg ONCE ONE Administration Lorazepam 2 mg 10/10/22 01:45 10/10/22 01:51 Lorazepam 1 Mg Tablet PO 10/10/22 01:46 2 mg ONCE ONE Administration Lorazepam 2 mg 10/10/22 09:30 10/10/22 09:36 Lorazepam 1 Mg Tablet PO 10/10/22 09:31 2 mg ONCE ONE Administration Methadone HCl 25 mg 10/10/22 10:34 10/10/22 10:44 Methadone Hcl 20 Mg/2 Ml Oral.Conc PO 10/10/22 10:35 25 mg ONCE ONE Administration Olanzapine 10 mg 10/08/22 18:00 10/08/22 18:15 Olanzapine 10 Mg Tablet PO 10/08/22 18:01 10 mg ONCE ONE Administration Olanzapine 10 mg 10/09/22 14:21 10/09/22 14:30 Olanzapine 10 Mg Tablet PO 10/09/22 14:22 10 mg ONCE ONE Administration Olanzapine 10 mg 10/10/22 09:30 10/10/22 09:36 Olanzapine 10 Mg Tablet PO 10/10/22 09:31 10 mg ONCE ONE Administration <Pallavi Lima NP - Last Filed: 10/09/22 01:42> Medications Administered Generic Name Dose Route Start Last Admin Trade Name Freq PRN Reason Stop Dose Admin Clonidine HCl 0.1 mg 10/08/22 22:54 10/10/22 07:30 Clonidine Hcl 0.1 Mg Tablet PO 0.1 mg BID PRN Administration Anxiety Protocol Fluoxetine HCl 20 mg 10/09/22 09:00 10/10/22 08:19 Fluoxetine Hcl 20 Mg Capsule PO 20 mg DAILY GENARO Administration Olanzapine 2.5 mg 10/09/22 09:00 10/10/22 08:19 Olanzapine 2.5 Mg Tablet PO 2.5 mg BID GENARO Administration Discontinued Medications Generic Name Dose Route Start Last Admin Trade Name Tyroneq PRN Reason Stop Dose Admin Clonazepam 2 mg 10/08/22 18:00 10/08/22 18:15 Clonazepam 1 Mg Tablet PO 10/08/22 18:01 2 mg ONCE ONE Administration Diphenhydramine HCl 50 mg 10/09/22 09:46 10/09/22 09:50 Diphenhydramine Hcl 50 Mg/Ml Vial IM 10/09/22 09:47 50 mg ONCE ONE Administration Haloperidol Lactate 5 mg 10/09/22 09:46 10/09/22 09:50 Haloperidol Lactate 5 Mg/Ml Vial IM 10/09/22 09:47 5 mg STAT STA Administration Lorazepam 2 mg 10/09/22 09:46 10/09/22 09:50 Lorazepam 2 Mg/Ml Vial IM 10/09/22 09:47 2 mg ONCE ONE Administration Lorazepam 2 mg 10/09/22 20:02 10/09/22 20:08 Lorazepam 1 Mg Tablet PO 10/09/22 20:03 2 mg ONCE ONE Administration Lorazepam 2 mg 10/10/22 01:45 10/10/22 01:51 Lorazepam 1 Mg Tablet PO 10/10/22 01:46 2 mg ONCE ONE Administration Lorazepam 2 mg 10/10/22 09:30 10/10/22 09:36 Lorazepam 1 Mg Tablet PO 10/10/22 09:31 2 mg ONCE ONE Administration Methadone HCl 25 mg 10/10/22 10:34 10/10/22 10:44 Methadone Hcl 20 Mg/2 Ml Oral.Conc PO 10/10/22 10:35 25 mg ONCE ONE Administration Olanzapine 10 mg 10/08/22 18:00 10/08/22 18:15 Olanzapine 10 Mg Tablet PO 10/08/22 18:01 10 mg ONCE ONE Administration Olanzapine 10 mg 10/09/22 14:21 10/09/22 14:30 Olanzapine 10 Mg Tablet PO 10/09/22 14:22 10 mg ONCE ONE Administration Olanzapine 10 mg 10/10/22 09:30 10/10/22 09:36 Olanzapine 10 Mg Tablet PO 10/10/22 09:31 10 mg ONCE ONE Administration <Jeronimo Potts MD - Last Filed: 10/10/22 14:11> Medical Decision Making Differential Diagnosis Differential Diagnoses: The differential diagnosis associated with the presentation includes <Pallavi Lima NP - Last Filed: 10/09/22 01:42> Substance abuse, psychosis, explosive disorder, behavioral disturbance <Pallavi Lima NP - Last Filed: 10/09/22 01:42> Consult Healthcare Provider Management of the patient was discussed with: Behavioral Health Provider <Pallavi Lima NP - Last Filed: 10/09/22 01:42> Lab Data MDM Lab Attestation statement: I reviewed the patient's lab results. <Pallavi Lima NP - Last Filed: 10/09/22 01:42> Result Diagrams: 10/08/22 19:27 10/08/22 19:27 <Pallavi Lima NP - Last Filed: 10/09/22 01:42> Labs: Lab Results 10/08/22 10/08/22 10/08/22 Range/Units 18:00 18:00 18:11 WBC (4.8-10.8) X10*3/uL RBC (4.60-5.80) X10*6/uL Hgb (14.0-18.0) g/dl Hct (42.0-52.0) % MCV (80.0-98.0) fL MCH (27.0-33.0) pg MCHC (31.0-36.0) g/dl RDW (11.0-16.0) % Plt Count (160-400) X10*3/uL MPV (9.4-12.4) fL Immature Gran % (Auto) (0.0-0.4) % Neut % (Auto) (45-73) % Lymph % (Auto) (20-40) % [place] % (Auto) (2-11) % Eos % (Auto) (0-4) % Baso % (Auto) (0-2) % Lymph # (Auto) (1.2-4.9) X10*3/uL [place] # (Auto) (0.1-1.2) X10*3/uL Eos # (Auto) (0.0-0.4) X10*3/uL Baso # (Auto) (0.0-0.2) X10*3/uL Abs Immat Gran (auto) (0.00-0.03) X10*3/uL Absolute Neuts (auto) (2.0-8.3) x10*3/uL Absolute Nucleated RBC (0.0-0.012) X10*3/uL Nucleated RBC % (auto) (0.0-0.2) /100WBC Sodium (135-145) mmol/L Potassium (3.3-5.1) mmol/L Chloride (96-108) mmol/L Carbon Dioxide (22-29) mmol/L Anion Gap (12-20) BUN (9-16) mg/dL Creatinine (0.5-1.4) mg/dL Estim Creat Clear Calc Estimated GFR Random Glucose (60-115) mg/dL Calcium (8.4-10.2) mg/dL Total Bilirubin (0.0-1.0) mg/dL AST (5-37) U/L ALT (0-40) U/L Alkaline Phosphatase (39-117) U/L Total Protein (6.5-8.0) g/dL Albumin (3.5-5.0) g/dL Urine Color Yellow Urine Appearance Clear Urine pH 8.5 (5.0-9.0) Ur Specific [place] 1.025 (1.005-1.025) Urine Protein Trace (Neg-Trace) mg/dL Urine Glucose (UA) Negative (Negative) mg/dL Urine Ketones Trace (Negative) mg/dL Urine Blood Negative (Negative) Urine Nitrite Negative (Negative) Ur Leukocyte Esterase Trace H (Negative) Urine RBC 0-2 (0-2) /HPF Urine WBC 0-5 (0-5) /HPF Ur Squamous Epith Cells 0-2 (0-2) /HPF Urine Bacteria None Seen (None Seen) Hyaline Casts 0-2 (0-2) /LPF Urine Opiates Screen POSITIVE H (Not Detect) Urine Fentanyl Screen POSITIVE H (Not Detect) Ur Barbiturates Screen Not Detected (Not Detect) Ur Phencyclidine Scrn Not Detected (Not Detect) Ur Amphetamines Screen Not Detected (Not Detect) U Benzodiazepines Scrn POSITIVE H (Not Detect) Urine Cocaine Screen Not Detected (Not Detect) U Marijuana (THC) Screen POSITIVE H (Not Detect) Ethyl Alcohol mg/dL COVID-19 (NAY) (Negative) COVID-19 Clin Com Influenza Type A (DORI) Negative (Negative) Influenza Type B (DORI) Negative (Negative) Influenza A & B Note See Note 10/08/22 10/08/22 10/08/22 Range/Units 18:11 19:27 19:27 WBC 7.3 (4.8-10.8) X10*3/uL RBC 4.83 (4.60-5.80) X10*6/uL Hgb 13.9 L (14.0-18.0) g/dl Hct 41.7 L (42.0-52.0) % MCV 86.3 (80.0-98.0) fL MCH 28.8 (27.0-33.0) pg MCHC 33.3 (31.0-36.0) g/dl RDW 11.7 (11.0-16.0) % Plt Count 153 L (160-400) X10*3/uL MPV 10.8 (9.4-12.4) fL Immature Gran % (Auto) 0.3 (0.0-0.4) % Neut % (Auto) 72.4 (45-73) % Lymph % (Auto) 19.7 L (20-40) % [place] % (Auto) 5.1 (2-11) % Eos % (Auto) 2.1 (0-4) % Baso % (Auto) 0.4 (0-2) % Lymph # (Auto) 1.4 (1.2-4.9) X10*3/uL [place] # (Auto) 0.4 (0.1-1.2) X10*3/uL Eos # (Auto) 0.2 (0.0-0.4) X10*3/uL Baso # (Auto) 0.0 (0.0-0.2) X10*3/uL Abs Immat Gran (auto) 0.02 (0.00-0.03) X10*3/uL Absolute Neuts (auto) 5.3 (2.0-8.3) x10*3/uL Absolute Nucleated RBC 0.000 (0.0-0.012) X10*3/uL Nucleated RBC % (auto) 0.0 (0.0-0.2) /100WBC Sodium 142 (135-145) mmol/L Potassium 4.9 (3.3-5.1) mmol/L Chloride 107 (96-108) mmol/L Carbon Dioxide 26 (22-29) mmol/L Anion Gap 14 (12-20) BUN 14 (9-16) mg/dL Creatinine 1.02 (0.5-1.4) mg/dL Estim Creat Clear Calc 102.3 Estimated GFR > 60 Random Glucose 100 (60-115) mg/dL Calcium 9.4 D (8.4-10.2) mg/dL Total Bilirubin 0.5 (0.0-1.0) mg/dL AST 18 (5-37) U/L ALT 12 (0-40) U/L Alkaline Phosphatase 60 (39-117) U/L Total Protein 6.1 L (6.5-8.0) g/dL Albumin 4.2 (3.5-5.0) g/dL Urine Color Urine Appearance Urine pH (5.0-9.0) Ur Specific [place] (1.005-1.025) Urine Protein (Neg-Trace) mg/dL Urine Glucose (UA) (Negative) mg/dL Urine Ketones (Negative) mg/dL Urine Blood (Negative) Urine Nitrite (Negative) Ur Leukocyte Esterase (Negative) Urine RBC (0-2) /HPF Urine WBC (0-5) /HPF Ur Squamous Epith Cells (0-2) /HPF Urine Bacteria (None Seen) Hyaline Casts (0-2) /LPF Urine Opiates Screen (Not Detect) Urine Fentanyl Screen (Not Detect) Ur Barbiturates Screen (Not Detect) Ur Phencyclidine Scrn (Not Detect) Ur Amphetamines Screen (Not Detect) U Benzodiazepines Scrn (Not Detect) Urine Cocaine Screen (Not Detect) U Marijuana (THC) Screen (Not Detect) Ethyl Alcohol < 10 mg/dL COVID-19 (NAY) Negative (Negative) COVID-19 Clin Com See Note Influenza Type A (DORI) (Negative) Influenza Type B (DORI) (Negative) Influenza A & B Note <Pallavi Lima NP - Last Filed: 10/09/22 01:42> Lab Results 10/08/22 10/08/22 10/08/22 Range/Units 18:00 18:00 18:11 WBC (4.8-10.8) X10*3/uL RBC (4.60-5.80) X10*6/uL Hgb (14.0-18.0) g/dl Hct (42.0-52.0) % MCV (80.0-98.0) fL MCH (27.0-33.0) pg MCHC (31.0-36.0) g/dl RDW (11.0-16.0) % Plt Count (160-400) X10*3/uL MPV (9.4-12.4) fL Immature Gran % (Auto) (0.0-0.4) % Neut % (Auto) (45-73) % Lymph % (Auto) (20-40) % [place] % (Auto) (2-11) % Eos % (Auto) (0-4) % Baso % (Auto) (0-2) % Lymph # (Auto) (1.2-4.9) X10*3/uL [place] # (Auto) (0.1-1.2) X10*3/uL Eos # (Auto) (0.0-0.4) X10*3/uL Baso # (Auto) (0.0-0.2) X10*3/uL Abs Immat Gran (auto) (0.00-0.03) X10*3/uL Absolute Neuts (auto) (2.0-8.3) x10*3/uL Absolute Nucleated RBC (0.0-0.012) X10*3/uL Nucleated RBC % (auto) (0.0-0.2) /100WBC Sodium (135-145) mmol/L Potassium (3.3-5.1) mmol/L Chloride (96-108) mmol/L Carbon Dioxide (22-29) mmol/L Anion Gap (12-20) BUN (9-16) mg/dL Creatinine (0.5-1.4) mg/dL Estim Creat Clear Calc Estimated GFR Random Glucose (60-115) mg/dL Calcium (8.4-10.2) mg/dL Total Bilirubin (0.0-1.0) mg/dL AST (5-37) U/L ALT (0-40) U/L Alkaline Phosphatase (39-117) U/L Total Protein (6.5-8.0) g/dL Albumin (3.5-5.0) g/dL Urine Color Yellow Urine Appearance Clear Urine pH 8.5 (5.0-9.0) Ur Specific [place] 1.025 (1.005-1.025) Urine Protein Trace (Neg-Trace) mg/dL Urine Glucose (UA) Negative (Negative) mg/dL Urine Ketones Trace (Negative) mg/dL Urine Blood Negative (Negative) Urine Nitrite Negative (Negative) Ur Leukocyte Esterase Trace H (Negative) Urine RBC 0-2 (0-2) /HPF Urine WBC 0-5 (0-5) /HPF Ur Squamous Epith Cells 0-2 (0-2) /HPF Urine Bacteria None Seen (None Seen) Hyaline Casts 0-2 (0-2) /LPF Urine Opiates Screen POSITIVE H (Not Detect) Urine Fentanyl Screen POSITIVE H (Not Detect) Ur Barbiturates Screen Not Detected (Not Detect) Ur Phencyclidine Scrn Not Detected (Not Detect) Ur Amphetamines Screen Not Detected (Not Detect) U Benzodiazepines Scrn POSITIVE H (Not Detect) Urine Cocaine Screen Not Detected (Not Detect) U Marijuana (THC) Screen POSITIVE H (Not Detect) Ethyl Alcohol mg/dL COVID-19 (NAY) (Negative) COVID-19 Clin Com Influenza Type A (DORI) Negative (Negative) Influenza Type B (DORI) Negative (Negative) Influenza A & B Note See Note 10/08/22 10/08/22 10/08/22 Range/Units 18:11 19:27 19:27 WBC 7.3 (4.8-10.8) X10*3/uL RBC 4.83 (4.60-5.80) X10*6/uL Hgb 13.9 L (14.0-18.0) g/dl Hct 41.7 L (42.0-52.0) % MCV 86.3 (80.0-98.0) fL MCH 28.8 (27.0-33.0) pg MCHC 33.3 (31.0-36.0) g/dl RDW 11.7 (11.0-16.0) % Plt Count 153 L (160-400) X10*3/uL MPV 10.8 (9.4-12.4) fL Immature Gran % (Auto) 0.3 (0.0-0.4) % Neut % (Auto) 72.4 (45-73) % Lymph % (Auto) 19.7 L (20-40) % [place] % (Auto) 5.1 (2-11) % Eos % (Auto) 2.1 (0-4) % Baso % (Auto) 0.4 (0-2) % Lymph # (Auto) 1.4 (1.2-4.9) X10*3/uL [place] # (Auto) 0.4 (0.1-1.2) X10*3/uL Eos # (Auto) 0.2 (0.0-0.4) X10*3/uL Baso # (Auto) 0.0 (0.0-0.2) X10*3/uL Abs Immat Gran (auto) 0.02 (0.00-0.03) X10*3/uL Absolute Neuts (auto) 5.3 (2.0-8.3) x10*3/uL Absolute Nucleated RBC 0.000 (0.0-0.012) X10*3/uL Nucleated RBC % (auto) 0.0 (0.0-0.2) /100WBC Sodium 142 (135-145) mmol/L Potassium 4.9 (3.3-5.1) mmol/L Chloride 107 (96-108) mmol/L Carbon Dioxide 26 (22-29) mmol/L Anion Gap 14 (12-20) BUN 14 (9-16) mg/dL Creatinine 1.02 (0.5-1.4) mg/dL Estim Creat Clear Calc 102.3 Estimated GFR > 60 Random Glucose 100 (60-115) mg/dL Calcium 9.4 D (8.4-10.2) mg/dL Total Bilirubin 0.5 (0.0-1.0) mg/dL AST 18 (5-37) U/L ALT 12 (0-40) U/L Alkaline Phosphatase 60 (39-117) U/L Total Protein 6.1 L (6.5-8.0) g/dL Albumin 4.2 (3.5-5.0) g/dL Urine Color Urine Appearance Urine pH (5.0-9.0) Ur Specific [place] (1.005-1.025) Urine Protein (Neg-Trace) mg/dL Urine Glucose (UA) (Negative) mg/dL Urine Ketones (Negative) mg/dL Urine Blood (Negative) Urine Nitrite (Negative) Ur Leukocyte Esterase (Negative) Urine RBC (0-2) /HPF Urine WBC (0-5) /HPF Ur Squamous Epith Cells (0-2) /HPF Urine Bacteria (None Seen) Hyaline Casts (0-2) /LPF Urine Opiates Screen (Not Detect) Urine Fentanyl Screen (Not Detect) Ur Barbiturates Screen (Not Detect) Ur Phencyclidine Scrn (Not Detect) Ur Amphetamines Screen (Not Detect) U Benzodiazepines Scrn (Not Detect) Urine Cocaine Screen (Not Detect) U Marijuana (THC) Screen (Not Detect) Ethyl Alcohol < 10 mg/dL COVID-19 (NAY) Negative (Negative) COVID-19 Clin Com See Note Influenza Type A (DORI) (Negative) Influenza Type B (DORI) (Negative) Influenza A & B Note <Jeronimo Potts MD - Last Filed: 10/10/22 14:11> External Record Review External record reviewed: Inpatient record, Outpatient record and Prior outpatient labs <Pallavi Lima NP - Last Filed: 10/09/22 01:42> Prescription Management I considered prescription management with: Other (Anxiolytics) <Pallavi Lima NP - Last Filed: 10/09/22 01:42> Social Determinants Patient?s care significantly limited by Social Determinants of Health including: Other Social Determinant of Health <Pallavi Lima NP - Last Filed: 10/09/22 01:42> Discharge Plan Discharge Clinical Impression: Depression, Polysubstance abuse, Explosive personality disorder, Suicidal ideation, Homicidal ideations <Pallavi Lima NP - Last Filed: 10/09/22 01:42> Patient Disposition: Still a Patient <Pallavi Lima NP - Last Filed: 10/09/22 01:42> Instructions: Mood Disorders (ED), Depression (ED), Polysubstance Abuse (ED) <Pallavi Lima NP - Last Filed: 10/09/22 01:42> Additional Instructions: Follow-up with outpatient psychiatry. Thank you for choosing this emergency department for evaluation. Please follow-up with primary care physician as needed. Return to the emergency department for any new, concerning, or worsening symptoms. <Pallavi Lima NP - Last Filed: 10/09/22 01:42> Prescriptions: No Action clonidine HCl 0.1 mg tablet 1 tab PO BID PRN (Reason: Anxiety) olanzapine 2.5 mg tablet 1 tab PO BID fluoxetine 20 mg capsule 1 cap PO QAM <Pallavi Lima NP - Last Filed: 10/09/22 01:42> Interventions: Jerome-Suicide Risk Severity Scale Last Done: 10/10/22 03:10 <Pallavi Lima NP - Last Filed: 10/09/22 01:42>
[2022-10-08 18:10] LABS: Appearance Urine Clear; Color Urine Yellow; Glucose Urine UA Negative (Negative); Leukocyte Esterase Urine Trace (Negative); Nitrite Urine Negative (Negative); PH 8.5 (5.0-9.0); Specific Gravity - Urine 1.025 (1.005-1.025); UMIC TRIGGER UACC YES; Urine Blood Negative (Negative); Urine Ketones Trace mg/dL (Negative); Urine Protein Trace mg/dL (Neg-Trace)
[2022-10-08 18:12] LABS: Bacteria Urine None Seen (None Seen); Hyaline Casts Urine 0-2 /LPF (0-2); RBC Urine 0-2 /HPF (0-2); Squamous Epithelial Cell Urine 0-2 /HPF (0-2); WBC Urine 0-5 /HPF (0-5)
[2022-10-08] MEDS: OLANZapine 10 MG TABLET PO (18:15)
[2022-10-08] MEDS: clonazePAM 1 MG TABLET 2 MG PO (18:15)
--- NOTE | 2022-10-08 18:17 | PC.NURSE ---
Per pt: Psychiatrist perscribed rxs that dont work for me .
[2022-10-08 18:27] LABS: Amphetamine Screen Urine Not Detected (Not Detect); Barbiturates, Urine Not Detected (Not Detect); Benzodiazepines Screen Urine POSITIVE (Not Detect); Cannabinoid Screen Urine POSITIVE (Not Detect); Cocaine Screen Urine Not Detected (Not Detect); Fentanyl, urine POSITIVE (Not Detect); Opiate Screen Urine POSITIVE (Not Detect); Phencyclidine Screen Urine Not Detected (Not Detect)
[2022-10-08 18:31] LABS: COVID-19 Test Negative (Negative); IDNOW Serial# 6674DD1D
[2022-10-08 18:39] LABS: IDNOW Serial# 55D5AD1C; Influenza A Negative (Negative); Influenza B2 Negative (Negative)
[2022-10-08 19:32] LABS: MANUAL DIFF FLAG NO
[2022-10-08 19:34] LABS: Basophils Percent Auto 0.4 % (0-2); Eosinophils Absolute Auto 0.2 X10*3/uL (0.0-0.4); Eosinophils Percent Auto 2.1 % (0-4); Hematocrit 41.7 % (42.0-52.0); Hemoglobin 13.9 g/dl (14.0-18.0); Imm Gran Abs Auto 0.02 X10*3/uL (0.00-0.03); Imm Gran Pct Auto 0.3 % (0.0-0.4); Lymphocytes Absolute Auto 1.4 X10*3/uL (1.2-4.9); Lymphocytes Percent Auto 19.7 % (20-40); Mean Corpuscular HGB Conc 33.3 g/dl (31.0-36.0); Mean Corpuscular Hemoglobin 28.8 pg (27.0-33.0); Mean Corpuscular Volume 86.3 fL (80.0-98.0); Mean Platelet Volume 10.8 fL (9.4-12.4); Monocytes Absolute Auto 0.4 X10*3/uL (0.1-1.2); Monocytes Percent Auto 5.1 % (2-11); Neutrophils Absolute Auto 5.3 x10*3/uL (2.0-8.3); Neutrophils Percent Auto 72.4 % (45-73); Platelet Count 153 X10*3/uL (160-400); Red Blood Count 4.83 X10*6/uL (4.60-5.80); Red Cell Distribution Width 11.7 % (11.0-16.0); White Blood Count 7.3 X10*3/uL (4.8-10.8)
[2022-10-08 19:47] LABS: Alanine Aminotransferase 12 U/L (0-40); Albumin Level 4.2 g/dL (3.5-5.0); Alkaline Phosphatase 60 U/L (39-117); Anion Gap 14 (12-20); Aspartate Amino Transferase 18 U/L (5-37); Bilirubin Total 0.5 mg/dL (0.0-1.0); Blood Urea Nitrogen 14 mg/dL (9-16); Calcium 9.4 mg/dL (8.4-10.2); Carbon Dioxide 26 mmol/L (22-29); Chloride 107 mmol/L (96-108); Creatinine Clr Calc Pharmacy 102.3; Estimated Glomerular Filt Rate > 60; Ethanol < 10 mg/dL; Glucose Random 100 mg/dL (60-115); Potassium 4.9 mmol/L (3.3-5.1); Sodium 142 mmol/L (135-145); Total Protein 6.1 g/dL (6.5-8.0)
[2022-10-09] VITALS (9 sets, daily range): BP systolic 93–133; BP diastolic 66–87; PULSE 66–80; RESP 16–30; TEMP 36.3–37.3; O2SAT 95–99
--- NOTE | 2022-10-09 06:27 | PC.NURSE ---
Patient slept through the night, no distress observed/reported, med rec completed/approved/MAR active, behavior non concerning at this time but can escalates due to history of aggressive behavior, care team assessed the patient, patient was not happy with care team, disposition JAYLA follow up in the morning, VSS, will continue to monitor.
[2022-10-09] MEDS: FLUoxetine HCl 20 MG CAPSULE PO (08:18)
[2022-10-09] MEDS: OLANZapine 2.5 MG TABLET PO ×2 (08:18→19:32)
[2022-10-09] MEDS: Haloperidol Lactate 5 MG/ML VIAL IM (09:50)
[2022-10-09] MEDS: diphenhydrAMINE HCL 50 MG/ML VIAL IM (09:50)
[2022-10-09] MEDS: LORazepam 2 MG/ML VIAL IM (09:50)
--- NOTE | 2022-10-09 09:51 | PC.NURSE ---
Addendum entered by Yessica Montelongo 10/09/22 10:36: Additional ligature risks removed from room Original Note: Pt requesting PRN medication. Clonidine offered PO- Pt stated FUCK YOU FUCK THIS IM GOING TO KILL MYSELF IN 20 minutes IF I DON'T GET SOME GOD DAMN MEDS . pt then preceded to wrap his ryan around his neck and said FUCK you I'm going to . This promotion writer and security preceded to remove ryan from patient neck. Security and I assisted the pt to ground to promote safety and behavioral control. Chayo MEJIA gave verbal order for 5mg Haldol, 2mg Ativan, and 50mg Benadryl IM administered 950. Administered in Left thigh. Post chemical restraint pt reports limited ROM in rt shoulder. No obvious deformity to limb noted. PA notified. Plan at this time is to defer xray until patient returns to behavioral control.
--- NOTE | 2022-10-09 10:16 | PC.NURSE ---
Pt repositioning in bed. Able to move both upper extremities w/o issues.
--- NOTE | 2022-10-09 12:55 | PC.NURSE ---
Pt is now sleeping. Dr. Mann reported that he will come do an assessment on limb due to pt being unable to contract for safety to leave BH pod.
[2022-10-09] MEDS: OLANZapine 10 MG TABLET PO (14:30)
--- NOTE | 2022-10-09 14:40 | PC.NURSE ---
Pt willing to contract for safety. One blanket given. Pt willing to keep Ailey from face and neck. Should pt cover face/head/neck, all ligature risks will be removed for patient safety.
--- NOTE | 2022-10-09 17:55 | MHC.CARE ---
CARE Team exhausted bedseach for pt.
--- NOTE | 2022-10-09 19:16 | PC.NURSE ---
Pt wrapped blanket around head. Ligature risk removed.
[2022-10-09] MEDS: cloNIDine HCL 0.1 MG TABLET PO (19:32)
[2022-10-09] MEDS: LORazepam 1 MG TABLET 2 MG PO (20:08)
--- NOTE | 2022-10-09 20:09 | PC.NURSE ---
Assumed care of pt. at 1900. At that time pt. lying in bed. Pt. was placed on 1:1 just prior to previous RN leaving and ligature risks removed. Pt. requesting night time medications and has agreed to not place blanket up around neck again. 1:1 at bedside, therefore, pt. allowed to have a sheet back on bed and one blanket. Pt. reporting SS of w/d and states it has been since that he last used. Pt. requesting to speak with provider to obtain medications for w/d. This RN spoke with provider and obtained a verbal order for 2mg Ativan which was administered to pt. Pt. currently lying in bed with 1:1 at bedside.
[2022-10-10 01:45] VITALS: BP 109/79; PULSE 76; RESP 16; TEMP 36.9; O2SAT 97
[2022-10-10] MEDS: LORazepam 1 MG TABLET 2 MG PO ×2 (01:51→09:36)
--- NOTE | 2022-10-10 04:36 | PC.NURSE ---
Pt. restless and reporting that he feels like he's withdrawing from heroin and fentanyl. Pt. was given another dose of ativan at 0150 per provider order. This had little effect as pt. continues to pace and report anxiety and irritability. Security at bedside in addition to the 1:1. Medication options were discussed with pt to help him relax and get some rest. Pt. reports that Benadryl doesn't work for him. Pt. also reporting pain at 8/10 in his shoulder. Pt. offered an ice pack, but declined that. Pt. eventually reported that music helps him to relax and was provided with headphones to listen to music. Pt. now listening to music in room. Will continue to monitor.
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
[2022-10-10] MEDS: cloNIDine HCL 0.1 MG TABLET PO (07:30)
[2022-10-10] MEDS: FLUoxetine HCl 20 MG CAPSULE PO (08:19)
[2022-10-10] MEDS: OLANZapine 2.5 MG TABLET PO (08:19)
[2022-10-10] MEDS: OLANZapine 10 MG TABLET PO (09:36)
--- NOTE | 2022-10-10 09:58 | PC.NURSE ---
Spoke with MD Potts via [place] [employer] for pt becoming increasingly agitated and request for medication to help with opiate withdrawal. Care team also spoke to, to see if [facility] could come see pt. Pt medicated to NOV. COWS 15.
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
[2022-10-10] MEDS: methADONE HCl 20 MG/2 ML ORAL.CONC 25 MG PO (10:44)
--- NOTE | 2022-10-10 10:46 | MHC.RECOVRN ---
Met with pt in [facility] to discuss substance use and assess for withdrawal. Pt awake, alert, easily engages in conversation, present in milieu. Pt reports having been on methadone up until 6 weeks ago when pt stopped presenting to [facility], had been at 120 mg and decreased to 50 mg. Pt has been using heroin, 2 bundles daily, until he presented to [facility] on 10/[facility]. Pt received 5 mg methadone while there and was administratively discharged that day. Currently, pt reports chills, restlessness, anxiety, inability to eat. Pt appears anxious, mild rhinorrhea. Pt does not wish to reinitiate methadone, however, would like to utilize a taper while at [facility] to address withdrawal symptoms. Discussed with Molly Nielson APRN. Plan to administer 25 mg methadone. Provider and RN aware.
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
--- NOTE | 2022-10-10 12:59 | MHC.RECOVRN ---
Met with pt to discuss dc plans, pt had been informed he does not meet level fo care for inpatient admission. Discussed ATS, pt aware he is unable to return to [facility] and declines [facility], Last time I was there people were smoking and doing drugs in the bathroom. Offered to expand bedsearch, pt declines. States I don't want to go all the way out to [place]. Pt states I'll just discharge home if that's okay. Encouraged pt to walk in to [facility] to continue methadone if he would like. Verbalizes understanding. Denies questions or concerns for t/w. RN and CARE Team aware.
== END 2022-10-10 14:34 | disposition home or self-care (01) ==
PROVIDERS: Nurse Practitioner Family; Emergency Provider Student in an Organized Health Care Education/Training Program; PCP Internal Medicine
DX: F32.A Depression, unspecified (principal); F60.3 Borderline personality disorder; R45.851 Suicidal ideations; R45.850 Homicidal ideations; F19.10 Other psychoactive substance abuse, uncomplicated; F11.20 Opioid dependence, uncomplicated; F43.10 Post-traumatic stress disorder, unspecified; F17.210 Nicotine dependence, cigarettes, uncomplicated; Z79.899 Other long term (current) drug therapy
CPT/HCPCS: 36415; 80053; 80307; 81001; 82077; 85025; 87502; 87635; 96372; 99285; J1200; J2060; S9485

== ENCOUNTER 2022-10-17 10:47 | Emergency (ER) | payer MEDICAID, SELFPAY ==
[2022-10-17 11:13] VITALS: BP 120/80; PULSE 103; RESP 20; O2SAT 96; BMI 24.4
--- NOTE | 2022-10-17 11:15 | ED.GENADULT ---
HPI - General Adult General Chief complaint: ETOH/Substance Use <JACKIE Pinzon - Last Filed: 10/17/22 11:19> Stated complaint: flu symptons took medication vomiting diff breathi <JACKIE Pinzon - Last Filed: 10/17/22 11:19> Time Seen by Provider: 10/17/22 18:20 <JACKIE Pinzon - Last Filed: 10/17/22 11:19> Source: patient <Patricio Sandoval MD - Last Filed: 10/17/22 19:06> Mode of arrival: ambulatory <Patricio Sandoval MD - Last Filed: 10/17/22 19:06> Limitations: no limitations <Patricio Sandoval MD - Last Filed: 10/17/22 19:06> History of Present Illness HPI narrative: patient history of substance abuse uses opiates and benzo plan to go to detox tomorrow last use was 2 days ago feels anxious worried about the withdrawal feel nauseated vomiting few times <Patricio Sandoval MD - Last Filed: 10/17/22 19:06> Related Data Home medications: Home Medications Medication Instructions Recorded Confirmed clonidine HCl 0.1 mg tablet 1 tab PO BID PRN Anxiety 10/08/22 10/08/22 fluoxetine 20 mg capsule 1 cap PO QAM 10/08/22 10/08/22 olanzapine 2.5 mg tablet 1 tab PO BID 10/08/22 10/08/22 <JACKIE Pinzon - Last Filed: 10/17/22 11:19> Allergies/adverse reactions: Allergies Allergy/AdvReac Type Severity Reaction Status Date / Time mayonnaise [MAYONNAISE] Allergy Intermediate THROAT AND Verified 05/02/22 11:19 TONGUE ITCH quetiapine [From SEROQUEL] Allergy Intermediate DYSTONIA Verified 05/02/22 11:19 cat dander [CATS] Allergy Unknown WATERY Verified 05/02/22 11:19 EYES, SNEEZING dog dander [DOG] Allergy Unknown UNKNOWN Verified 05/02/22 11:19 paroxetine [From PAXIL] Allergy Unknown FLU LIKE Verified 05/02/22 11:19 SYMPTOMS penicillin V Allergy Unknown Unknown Verified 05/02/22 11:19 Penicillins [PENICILLINS] Allergy Unknown SWELLING Verified 05/02/22 11:19 SEAFOOD Allergy Severe DIFFICULTY Uncoded 05/12/21 00:16 BREATHING <JACKIE Pinzon - Last Filed: 10/17/22 11:19> Review of Systems Review of Systems: Yes all other systems are reviewed and are negative <Patricio Sandoval MD - Last Filed: 10/17/22 19:06> [facility] Past Medical History Medical History: Medical History ACL (anterior cruciate ligament) rupture Asthma Hepatitis C Hepatitis C antibody positive in blood Knee cartilage, torn, right Substance abuse withdrawal <JACKIE Pinzon - Last Filed: 10/17/22 11:19> Social History Social History: Social History Household Members: Family Household Members Other:: 3 Housing: House Do you presently have visiting nurse or other home services: No Unable to assess alcohol history related to: Unknown Alcohol intake: never Patient Tobacco Use Status: Current everyday Tobacco user Tobacco use type: Cigarette Cigarettes Per Day: 10 Years Smoked: 15 e-Cigarette/Vaping Use: Never Used Substance Use Type: Sedatives Advance Directives: No Advance Directives Information Provided: No service: No Sexual orientation: Straight/Heterosexual <JACKIE Pinzon - Last Filed: 10/17/22 11:19> Physical Exam ED Vital Signs: Vital Signs - 24 hr 10/17/22 11:13 Pulse Rate 103 H Respiratory Rate 20 Blood Pressure 120/80 Pulse Oximetry 96 Oxygen Delivery Method Room Air BMI result Body Mass Index 24.4 <JACKIE Pinzon - Last Filed: 10/17/22 11:19> Vital Signs - 24 hr 10/17/22 11:13 Pulse Rate 103 H Respiratory Rate 20 Blood Pressure 120/80 Pulse Oximetry 96 Oxygen Delivery Method Room Air BMI result Body Mass Index 24.4 <Patricio Sandoval MD - Last Filed: 10/17/22 19:06> Appearance: Alert. Oriented X3. No acute distress. anxious Eyes: PERRLA, No Nystagmus ENT: Pharynx normal. Oral Mucosa moist Neck: Normal inspection. Neck supple. CVS: Normal heart rate and rhythm. Pulses normal. Respiratory: No respiratory distress. Equal air entry bilateral, no wheezing/rales/rhonchi Abdomen: Soft and nontender. Bowel sounds are present, no mass palpable, no CVA tenderness Skin: Skin warm and dry. Normal skin color. Normal skin turgor. Extremities: No lower extremity edema. No calf tenderness Neuro: Oriented X 3. No motor deficit. <Patricio Sandoval MD - Last Filed: 10/17/22 19:06> Course Course Course Narrative: RME - 37 yo male with history of polysubstance abuse, depression, PTSD presenting with benzo withdrawal and feeling like he has the flu. Symptoms started yesterday - cough, N/V, chills, unable to keep anything down, feels dehydrated. Bought 300 tablets of Klonopin 1 month ago and went through all of them in a month, last took 2 days. VSS. Will check basic labs and viral swabs. <JACKIE Pinzon - Last Filed: 10/17/22 11:19> Medical Decision Making Medical Decision Making [facility] Narrative: patient with opiate and benzo abuse plan to be inpatient detox tomorrow will give him Ativan for withdrawal for now will go to the detox at a.m. <Patricio Sandoval MD - Last Filed: 10/17/22 19:06> Lab Data [facility] Lab Attestation statement: I reviewed the patient's lab results. <Patricio Sandoval MD - Last Filed: 10/17/22 19:06> Result Diagrams: 10/17/22 11:28 10/17/22 11:28 <JACKIE Pinzon - Last Filed: 10/17/22 11:19> Labs: Lab Results 10/17/22 10/17/22 10/17/22 Range/Units 11:28 11:28 11:28 WBC 5.9 (4.8-10.8) X10*3/uL RBC 5.07 (4.60-5.80) X10*6/uL Hgb 14.6 (14.0-18.0) g/dl Hct 44.9 (42.0-52.0) % MCV 88.6 (80.0-98.0) fL MCH 28.8 (27.0-33.0) pg MCHC 32.5 (31.0-36.0) g/dl RDW 11.7 (11.0-16.0) % Plt Count 175 (160-400) X10*3/uL MPV 10.4 (9.4-12.4) fL Immature Gran % (Auto) 0.3 (0.0-0.4) % Neut % (Auto) 84.2 H (45-73) % Lymph % (Auto) 7.4 L (20-40) % [place] % (Auto) 4.9 (2-11) % Eos % (Auto) 2.9 (0-4) % Baso % (Auto) 0.3 (0-2) % Lymph # (Auto) 0.4 L (1.2-4.9) X10*3/uL [place] # (Auto) 0.3 (0.1-1.2) X10*3/uL Eos # (Auto) 0.2 (0.0-0.4) X10*3/uL Baso # (Auto) 0.0 (0.0-0.2) X10*3/uL Abs Immat Gran (auto) 0.02 (0.00-0.03) X10*3/uL Absolute Neuts (auto) 5.0 (2.0-8.3) x10*3/uL Absolute Nucleated RBC 0.000 (0.0-0.012) X10*3/uL Nucleated RBC % (auto) 0.0 (0.0-0.2) /100WBC Sodium (135-145) mmol/L Potassium (3.3-5.1) mmol/L Chloride (96-108) mmol/L Carbon Dioxide (22-29) mmol/L Anion Gap (12-20) BUN (9-16) mg/dL Creatinine (0.5-1.4) mg/dL Estim Creat Clear Calc Estimated GFR Random Glucose (60-115) mg/dL Calcium (8.4-10.2) mg/dL Magnesium (1.6-2.6) mg/dL Total Bilirubin (0.0-1.0) mg/dL Direct Bilirubin (0.0-0.5) mg/dL AST (5-37) U/L ALT (0-40) U/L Alkaline Phosphatase (39-117) U/L Total Protein (6.5-8.0) g/dL Albumin (3.5-5.0) g/dL Urine Color Urine Appearance Urine pH (5.0-9.0) Ur Specific [place] (1.005-1.025) Urine Protein (Neg-Trace) mg/dL Urine Glucose (UA) (Negative) mg/dL Urine Ketones (Negative) mg/dL Urine Blood (Negative) Urine Nitrite (Negative) Ur Leukocyte Esterase (Negative) Urine RBC (0-2) /HPF Urine WBC (0-5) /HPF Ur Squamous Epith Cells (0-2) /HPF Urine Bacteria (None Seen) Hyaline Casts (0-2) /LPF Urine Opiates Screen (Not Detect) Urine Fentanyl Screen (Not Detect) Ur Barbiturates Screen (Not Detect) Ur Phencyclidine Scrn (Not Detect) Ur Amphetamines Screen (Not Detect) U Benzodiazepines Scrn (Not Detect) Urine Cocaine Screen (Not Detect) U Marijuana (THC) Screen (Not Detect) Ethyl Alcohol mg/dL COVID-19 (NAY) Negative (Negative) COVID-19 Clin Com See Note Influenza Type A (DORI) Negative (Negative) Influenza Type B (DORI) Negative (Negative) Influenza A & B Note See Note 10/17/22 10/17/22 10/17/22 Range/Units 11:28 11:28 11:28 WBC (4.8-10.8) X10*3/uL RBC (4.60-5.80) X10*6/uL Hgb (14.0-18.0) g/dl Hct (42.0-52.0) % MCV (80.0-98.0) fL MCH (27.0-33.0) pg MCHC (31.0-36.0) g/dl RDW (11.0-16.0) % Plt Count (160-400) X10*3/uL MPV (9.4-12.4) fL Immature Gran % (Auto) (0.0-0.4) % Neut % (Auto) (45-73) % Lymph % (Auto) (20-40) % [place] % (Auto) (2-11) % Eos % (Auto) (0-4) % Baso % (Auto) (0-2) % Lymph # (Auto) (1.2-4.9) X10*3/uL [place] # (Auto) (0.1-1.2) X10*3/uL Eos # (Auto) (0.0-0.4) X10*3/uL Baso # (Auto) (0.0-0.2) X10*3/uL Abs Immat Gran (auto) (0.00-0.03) X10*3/uL Absolute Neuts (auto) (2.0-8.3) x10*3/uL Absolute Nucleated RBC (0.0-0.012) X10*3/uL Nucleated RBC % (auto) (0.0-0.2) /100WBC Sodium 141 (135-145) mmol/L Potassium 4.4 (3.3-5.1) mmol/L Chloride 103 (96-108) mmol/L Carbon Dioxide 27 (22-29) mmol/L Anion Gap 15 (12-20) BUN 14 (9-16) mg/dL Creatinine 1.05 (0.5-1.4) mg/dL Estim Creat Clear Calc 102.5 Estimated GFR > 60 Random Glucose 145 H (60-115) mg/dL Calcium 9.7 (8.4-10.2) mg/dL Magnesium 2.0 (1.6-2.6) mg/dL Total Bilirubin 0.7 (0.0-1.0) mg/dL Direct Bilirubin 0.2 (0.0-0.5) mg/dL AST 24 (5-37) U/L ALT 24 (0-40) U/L Alkaline Phosphatase 80 (39-117) U/L Total Protein 7.1 (6.5-8.0) g/dL Albumin 4.8 (3.5-5.0) g/dL Urine Color Dark Yellow Urine Appearance Clear Urine pH 7.0 (5.0-9.0) Ur Specific [place] >= 1.030 H (1.005-1.025) Urine Protein Trace (Neg-Trace) mg/dL Urine Glucose (UA) Negative (Negative) mg/dL Urine Ketones 15 (Negative) mg/dL Urine Blood Negative (Negative) Urine Nitrite Negative (Negative) Ur Leukocyte Esterase Trace H (Negative) Urine RBC 0-2 (0-2) /HPF Urine WBC 0-5 (0-5) /HPF Ur Squamous Epith Cells 0-2 (0-2) /HPF Urine Bacteria None Seen (None Seen) Hyaline Casts 0-2 (0-2) /LPF Urine Opiates Screen POSITIVE H (Not Detect) Urine Fentanyl Screen POSITIVE H (Not Detect) Ur Barbiturates Screen Not Detected (Not Detect) Ur Phencyclidine Scrn Not Detected (Not Detect) Ur Amphetamines Screen Not Detected (Not Detect) U Benzodiazepines Scrn POSITIVE H (Not Detect) Urine Cocaine Screen Not Detected (Not Detect) U Marijuana (THC) Screen POSITIVE H (Not Detect) Ethyl Alcohol < 10 mg/dL COVID-19 (NAY) (Negative) COVID-19 Clin Com Influenza Type A (DORI) (Negative) Influenza Type B (DORI) (Negative) Influenza A & B Note <JACKIE Pinzon - Last Filed: 10/17/22 11:19> Lab Results 10/17/22 10/17/22 10/17/22 Range/Units 11:28 11:28 11:28 WBC 5.9 (4.8-10.8) X10*3/uL RBC 5.07 (4.60-5.80) X10*6/uL Hgb 14.6 (14.0-18.0) g/dl Hct 44.9 (42.0-52.0) % MCV 88.6 (80.0-98.0) fL MCH 28.8 (27.0-33.0) pg MCHC 32.5 (31.0-36.0) g/dl RDW 11.7 (11.0-16.0) % Plt Count 175 (160-400) X10*3/uL MPV 10.4 (9.4-12.4) fL Immature Gran % (Auto) 0.3 (0.0-0.4) % Neut % (Auto) 84.2 H (45-73) % Lymph % (Auto) 7.4 L (20-40) % [place] % (Auto) 4.9 (2-11) % Eos % (Auto) 2.9 (0-4) % Baso % (Auto) 0.3 (0-2) % Lymph # (Auto) 0.4 L (1.2-4.9) X10*3/uL [place] # (Auto) 0.3 (0.1-1.2) X10*3/uL Eos # (Auto) 0.2 (0.0-0.4) X10*3/uL Baso # (Auto) 0.0 (0.0-0.2) X10*3/uL Abs Immat Gran (auto) 0.02 (0.00-0.03) X10*3/uL Absolute Neuts (auto) 5.0 (2.0-8.3) x10*3/uL Absolute Nucleated RBC 0.000 (0.0-0.012) X10*3/uL Nucleated RBC % (auto) 0.0 (0.0-0.2) /100WBC Sodium (135-145) mmol/L Potassium (3.3-5.1) mmol/L Chloride (96-108) mmol/L Carbon Dioxide (22-29) mmol/L Anion Gap (12-20) BUN (9-16) mg/dL Creatinine (0.5-1.4) mg/dL Estim Creat Clear Calc Estimated GFR Random Glucose (60-115) mg/dL Calcium (8.4-10.2) mg/dL Magnesium (1.6-2.6) mg/dL Total Bilirubin (0.0-1.0) mg/dL Direct Bilirubin (0.0-0.5) mg/dL AST (5-37) U/L ALT (0-40) U/L Alkaline Phosphatase (39-117) U/L Total Protein (6.5-8.0) g/dL Albumin (3.5-5.0) g/dL Urine Color Urine Appearance Urine pH (5.0-9.0) Ur Specific [place] (1.005-1.025) Urine Protein (Neg-Trace) mg/dL Urine Glucose (UA) (Negative) mg/dL Urine Ketones (Negative) mg/dL Urine Blood (Negative) Urine Nitrite (Negative) Ur Leukocyte Esterase (Negative) Urine RBC (0-2) /HPF Urine WBC (0-5) /HPF Ur Squamous Epith Cells (0-2) /HPF Urine Bacteria (None Seen) Hyaline Casts (0-2) /LPF Urine Opiates Screen (Not Detect) Urine Fentanyl Screen (Not Detect) Ur Barbiturates Screen (Not Detect) Ur Phencyclidine Scrn (Not Detect) Ur Amphetamines Screen (Not Detect) U Benzodiazepines Scrn (Not Detect) Urine Cocaine Screen (Not Detect) U Marijuana (THC) Screen (Not Detect) Ethyl Alcohol mg/dL COVID-19 (NAY) Negative (Negative) COVID-19 Clin Com See Note Influenza Type A (DORI) Negative (Negative) Influenza Type B (DORI) Negative (Negative) Influenza A & B Note See Note 10/17/22 10/17/22 10/17/22 Range/Units 11:28 11:28 11:28 WBC (4.8-10.8) X10*3/uL RBC (4.60-5.80) X10*6/uL Hgb (14.0-18.0) g/dl Hct (42.0-52.0) % MCV (80.0-98.0) fL MCH (27.0-33.0) pg MCHC (31.0-36.0) g/dl RDW (11.0-16.0) % Plt Count (160-400) X10*3/uL MPV (9.4-12.4) fL Immature Gran % (Auto) (0.0-0.4) % Neut % (Auto) (45-73) % Lymph % (Auto) (20-40) % [place] % (Auto) (2-11) % Eos % (Auto) (0-4) % Baso % (Auto) (0-2) % Lymph # (Auto) (1.2-4.9) X10*3/uL [place] # (Auto) (0.1-1.2) X10*3/uL Eos # (Auto) (0.0-0.4) X10*3/uL Baso # (Auto) (0.0-0.2) X10*3/uL Abs Immat Gran (auto) (0.00-0.03) X10*3/uL Absolute Neuts (auto) (2.0-8.3) x10*3/uL Absolute Nucleated RBC (0.0-0.012) X10*3/uL Nucleated RBC % (auto) (0.0-0.2) /100WBC Sodium 141 (135-145) mmol/L Potassium 4.4 (3.3-5.1) mmol/L Chloride 103 (96-108) mmol/L Carbon Dioxide 27 (22-29) mmol/L Anion Gap 15 (12-20) BUN 14 (9-16) mg/dL Creatinine 1.05 (0.5-1.4) mg/dL Estim Creat Clear Calc 102.5 Estimated GFR > 60 Random Glucose 145 H (60-115) mg/dL Calcium 9.7 (8.4-10.2) mg/dL Magnesium 2.0 (1.6-2.6) mg/dL Total Bilirubin 0.7 (0.0-1.0) mg/dL Direct Bilirubin 0.2 (0.0-0.5) mg/dL AST 24 (5-37) U/L ALT 24 (0-40) U/L Alkaline Phosphatase 80 (39-117) U/L Total Protein 7.1 (6.5-8.0) g/dL Albumin 4.8 (3.5-5.0) g/dL Urine Color Dark Yellow Urine Appearance Clear Urine pH 7.0 (5.0-9.0) Ur Specific [place] >= 1.030 H (1.005-1.025) Urine Protein Trace (Neg-Trace) mg/dL Urine Glucose (UA) Negative (Negative) mg/dL Urine Ketones 15 (Negative) mg/dL Urine Blood Negative (Negative) Urine Nitrite Negative (Negative) Ur Leukocyte Esterase Trace H (Negative) Urine RBC 0-2 (0-2) /HPF Urine WBC 0-5 (0-5) /HPF Ur Squamous Epith Cells 0-2 (0-2) /HPF Urine Bacteria None Seen (None Seen) Hyaline Casts 0-2 (0-2) /LPF Urine Opiates Screen POSITIVE H (Not Detect) Urine Fentanyl Screen POSITIVE H (Not Detect) Ur Barbiturates Screen Not Detected (Not Detect) Ur Phencyclidine Scrn Not Detected (Not Detect) Ur Amphetamines Screen Not Detected (Not Detect) U Benzodiazepines Scrn POSITIVE H (Not Detect) Urine Cocaine Screen Not Detected (Not Detect) U Marijuana (THC) Screen POSITIVE H (Not Detect) Ethyl Alcohol < 10 mg/dL COVID-19 (NAY) (Negative) COVID-19 Clin Com Influenza Type A (DORI) (Negative) Influenza Type B (DORI) (Negative) Influenza A & B Note <Patricio Sandoval MD - Last Filed: 10/17/22 19:06> Discharge Plan Discharge Clinical Impression: Polysubstance abuse <JACKIE Pinzon - Last Filed: 10/17/22 11:19> Patient Disposition: Home, Self-Care <JACKIE Pinzon - Last Filed: 10/17/22 11:19> Instructions: Polysubstance Abuse (ED) <JACKIE Pinzon - Last Filed: 10/17/22 11:19> Additional Instructions: follow-up with detox as planned for tomorrow <JACKIE Pinzon - Last Filed: 10/17/22 11:19> Prescriptions: No Action clonidine HCl 0.1 mg tablet 1 tab PO BID PRN (Reason: Anxiety) olanzapine 2.5 mg tablet 1 tab PO BID fluoxetine 20 mg capsule 1 cap PO QAM <JACKIE Pinzon - Last Filed: 10/17/22 11:19>
[2022-10-17 11:32] LABS: MANUAL DIFF FLAG NO
[2022-10-17 11:36] LABS: Basophils Percent Auto 0.3 % (0-2); Eosinophils Absolute Auto 0.2 X10*3/uL (0.0-0.4); Eosinophils Percent Auto 2.9 % (0-4); Hematocrit 44.9 % (42.0-52.0); Hemoglobin 14.6 g/dl (14.0-18.0); Imm Gran Abs Auto 0.02 X10*3/uL (0.00-0.03); Imm Gran Pct Auto 0.3 % (0.0-0.4); Lymphocytes Absolute Auto 0.4 X10*3/uL (1.2-4.9); Lymphocytes Percent Auto 7.4 % (20-40); Mean Corpuscular HGB Conc 32.5 g/dl (31.0-36.0); Mean Corpuscular Hemoglobin 28.8 pg (27.0-33.0); Mean Corpuscular Volume 88.6 fL (80.0-98.0); Mean Platelet Volume 10.4 fL (9.4-12.4); Monocytes Absolute Auto 0.3 X10*3/uL (0.1-1.2); Monocytes Percent Auto 4.9 % (2-11); Neutrophils Percent Auto 84.2 % (45-73); Platelet Count 175 X10*3/uL (160-400); Red Blood Count 5.07 X10*6/uL (4.60-5.80); Red Cell Distribution Width 11.7 % (11.0-16.0); White Blood Count 5.9 X10*3/uL (4.8-10.8)
[2022-10-17 11:39] LABS: Appearance Urine Clear; Color Urine Dark Yellow; Glucose Urine UA Negative (Negative); Leukocyte Esterase Urine Trace (Negative); Nitrite Urine Negative (Negative); Specific Gravity - Urine >= 1.030 (1.005-1.025); UMIC TRIGGER UACC YES; Urine Blood Negative (Negative); Urine Ketones 15 mg/dL (Negative); Urine Protein Trace mg/dL (Neg-Trace)
[2022-10-17 11:41] LABS: Bacteria Urine None Seen (None Seen); Hyaline Casts Urine 0-2 /LPF (0-2); RBC Urine 0-2 /HPF (0-2); Squamous Epithelial Cell Urine 0-2 /HPF (0-2); WBC Urine 0-5 /HPF (0-5)
[2022-10-17 11:50] LABS: Amphetamine Screen Urine Not Detected (Not Detect); Barbiturates, Urine Not Detected (Not Detect); Benzodiazepines Screen Urine POSITIVE (Not Detect); COVID-19 Test Negative (Negative); Cannabinoid Screen Urine POSITIVE (Not Detect); Cocaine Screen Urine Not Detected (Not Detect); Fentanyl, urine POSITIVE (Not Detect); IDNOW Serial# 16C4AD1C; IDNOW Serial# BCCEAD1C; Influenza A Negative (Negative); Influenza B2 Negative (Negative); Opiate Screen Urine POSITIVE (Not Detect); Phencyclidine Screen Urine Not Detected (Not Detect)
[2022-10-17 12:00] LABS: Alanine Aminotransferase 24 U/L (0-40); Albumin Level 4.8 g/dL (3.5-5.0); Alkaline Phosphatase 80 U/L (39-117); Anion Gap 15 (12-20); Aspartate Amino Transferase 24 U/L (5-37); Bilirubin Direct 0.2 mg/dL (0.0-0.5); Bilirubin Total 0.7 mg/dL (0.0-1.0); Blood Urea Nitrogen 14 mg/dL (9-16); Calcium 9.7 mg/dL (8.4-10.2); Carbon Dioxide 27 mmol/L (22-29); Chloride 103 mmol/L (96-108); Creatinine Clr Calc Pharmacy 102.5; Estimated Glomerular Filt Rate > 60; Ethanol < 10 mg/dL; Glucose Random 145 mg/dL (60-115); Potassium 4.4 mmol/L (3.3-5.1); Sodium 141 mmol/L (135-145); Total Protein 7.1 g/dL (6.5-8.0)
[2022-10-17] MEDS: LORazepam 1 MG TABLET 2 MG PO (19:07)
[2022-10-17 19:08] VITALS: BP 137/86; PULSE 88; RESP 16; O2SAT 98
== END 2022-10-17 19:14 | disposition home or self-care (01) ==
PROVIDERS: Physician Assistant; Emergency Provider Internal Medicine; PCP Internal Medicine
DX: F19.10 Other psychoactive substance abuse, uncomplicated (principal); Z20.822 Contact with and (suspected) exposure to COVID-19; B19.20 Unspecified viral hepatitis C without hepatic coma; F32.A Depression, unspecified; F43.10 Post-traumatic stress disorder, unspecified; F17.210 Nicotine dependence, cigarettes, uncomplicated; Z79.899 Other long term (current) drug therapy
CPT/HCPCS: 36415; 80048; 80076; 80307; 81001; 82077; 83735; 85025; 87502; 87635; 99283

== ENCOUNTER 2022-12-09 16:54 | Emergency (ER) | payer OTHER, MEDICAID, SELFPAY ==
[2022-12-09 17:18] VITALS: BP 101/58; PULSE 74; RESP 16; TEMP 36.7; O2SAT 96; BMI 23.0
--- NOTE | 2022-12-09 17:25 | ED.PSYCH ---
HPI - Psych General Stated Complaint: crisis, detox, SI Time Seen by Provider: 12/09/22 17:12 Source: patient Mode of arrival: ambulatory Limitations: no limitations History of Present Illness HPI Narrative: Patient comes to the emergency room complaining of suicidal ideation, admits using drugs, patient has been heroin, fentanyl and benzodiazepines. Patient states that he feels that his life is out of control, patient trying to end into detox. Patient states that he had bed available today at 15:00 at [facility]. However, when he was ready for an intake, he was informed that due to an incident that occurred several months ago, patient is banned from [facility] for 1 more year. Patient requesting detox Related Data Home Medications Medication Instructions Recorded Confirmed No Known Home Meds 12/09/22 12/09/22 Allergies Allergy/AdvReac Type Severity Reaction Status Date / Time mayonnaise [MAYONNAISE] Allergy Intermediate THROAT AND Verified 05/02/22 11:19 TONGUE ITCH quetiapine [From SEROQUEL] Allergy Intermediate DYSTONIA Verified 05/02/22 11:19 cat dander [CATS] Allergy Unknown WATERY Verified 05/02/22 11:19 EYES, SNEEZING dog dander [DOG] Allergy Unknown UNKNOWN Verified 05/02/22 11:19 paroxetine [From PAXIL] Allergy Unknown FLU LIKE Verified 05/02/22 11:19 SYMPTOMS penicillin V Allergy Unknown Unknown Verified 05/02/22 11:19 Penicillins [PENICILLINS] Allergy Unknown SWELLING Verified 05/02/22 11:19 SEAFOOD Allergy Severe DIFFICULTY Uncoded 05/12/21 00:16 BREATHING Review of Systems Review of Systems: Constitutional : No Weight loss, No Fever, No Chills, No Night Sweats, No Fatigue, No Malaise ENT/Mouth : No Hearing loss, No Ear Pain, No Nasal Congestion, No Sinus Pain, No Hoarseness, No sore throat, No Rhinorrhea, No Swallowing Difficulty Eyes: No Eye Pain, No Swelling, No Redness, No Foreign Body, No Discharge, No Vision Changes Cardiovascular : No Chest Pain, No SOB, No Dyspnea on Exertion, No Orthopnea, No Edema, No Palpitations Respiratory : No Cough, No Sputum, No Wheezing, No Smoke Exposure, No Dyspnea Gastrointestinal : No Nausea, No Vomiting, No Diarrhea, No Constipation, No abdominal Pain, No Hematochezia, No Melena Genitourinary : no irregular bleeding, No Dysuria, No Urinary Frequency, No Hematuria, No Urinary Incontinence, No Urgency, No Flank Pain, No Urinary Flow Changes, No Hesitancy Musculoskeletal : No joint pain, No Myalgias, No Joint Swelling Skin : No Skin Lesions, No rash Neuro : No Weakness, No Numbness, No Paresthesias, No Loss of Consciousness, No Dizziness, No Headache Psych : Complaining of anxiety, suicidal ideation, polysubstance abuse, denies homicidal ideation Heme/Lymph: No Bruising, No Bleeding,No Lymphadenopathy Endocrine : No Polyuria, No Polydipsia, No Temperature Intolerance [facility] Past Medical History Medical History ACL (anterior cruciate ligament) rupture Asthma Hepatitis C Hepatitis C antibody positive in blood Knee cartilage, torn, right Substance abuse withdrawal Social History Social History Household Members: Family Household Members Other:: 3 Housing: House Do you presently have visiting nurse or other home services: No Unable to assess alcohol history related to: Unknown Alcohol intake: never Patient Tobacco Use Status: Current everyday Tobacco user Tobacco use type: Cigarette Cigarettes Per Day: 10 Years Smoked: 15 e-Cigarette/Vaping Use: Never Used Substance Use Type: Sedatives service: No Sexual orientation: Straight/Heterosexual Physical Exam Const: Other: Appearance: Alert. Oriented X3. No acute distress. Eyes: Pupils equal, round and reactive to light. ENT: Pharynx normal. Neck: Normal inspection. Neck supple. No lymph nodes noted. No crepitus CVS: Normal heart rate and rhythm. Pulses normal. Normal S1 and S2 Respiratory: No respiratory distress. Breath sounds normal. No Wheezing. No rales Abdomen: Soft and nontender. No rigidity. No distention. Skin: Skin warm and dry. Normal skin color. Normal skin turgor. Extremities: No lower extremity edema. No Lacerations. No Rash Neuro: Oriented X 3. No motor deficit. No sensory deficit. Moving all extremities. No slurred speech. CN 2 through 12 grossly intact Psych: calm, cooperative, normal affect, a bit anxious Course Course Course Narrative: -patient's labs pending -care team consult pending -physician observation started at 17:33 Discharge Plan Discharge Clinical Impression: Polysubstance abuse Patient Disposition: Still a Patient Prescriptions: No Action clonidine HCl 0.1 mg tablet 1 tab PO BID PRN (Reason: Anxiety) olanzapine 2.5 mg tablet 1 tab PO BID fluoxetine 20 mg capsule 1 cap PO QAM
[2022-12-09 18:01] LABS: Amphetamine Screen Urine Not Detected (Not Detect); Barbiturates, Urine Not Detected (Not Detect); Benzodiazepines Screen Urine POSITIVE (Not Detect); COVID-19 Test Negative (Negative); Cannabinoid Screen Urine POSITIVE (Not Detect); Cocaine Screen Urine POSITIVE (Not Detect); Fentanyl, urine POSITIVE (Not Detect); IDNOW Serial# 08D9AD1C; Opiate Screen Urine POSITIVE (Not Detect); Phencyclidine Screen Urine Not Detected (Not Detect)
[2022-12-09 18:06] LABS: MANUAL DIFF FLAG NO
[2022-12-09 18:09] LABS: Basophils Percent Auto 0.5 % (0-2); Eosinophils Absolute Auto 0.4 X10*3/uL (0.0-0.4); Hematocrit 43.2 % (42.0-52.0); Hemoglobin 14.2 g/dl (14.0-18.0); Imm Gran Abs Auto 0.02 X10*3/uL (0.00-0.03); Imm Gran Pct Auto 0.3 % (0.0-0.4); Lymphocytes Absolute Auto 1.4 X10*3/uL (1.2-4.9); Lymphocytes Percent Auto 19.2 % (20-40); Mean Corpuscular HGB Conc 32.9 g/dl (31.0-36.0); Mean Corpuscular Hemoglobin 28.3 pg (27.0-33.0); Mean Corpuscular Volume 86.1 fL (80.0-98.0); Monocytes Absolute Auto 0.3 X10*3/uL (0.1-1.2); Monocytes Percent Auto 4.5 % (2-11); Neutrophils Absolute Auto 5.2 x10*3/uL (2.0-8.3); Neutrophils Percent Auto 70.5 % (45-73); Platelet Count 148 X10*3/uL (160-400); Red Blood Count 5.02 X10*6/uL (4.60-5.80); White Blood Count 7.4 X10*3/uL (4.8-10.8)
[2022-12-09 18:53] LABS: Alanine Aminotransferase 8 U/L (0-40); Albumin Level 4.1 g/dL (3.5-5.0); Alkaline Phosphatase 60 U/L (39-117); Anion Gap 9 (12-20); Aspartate Amino Transferase 15 U/L (5-37); Bilirubin Total 0.7 mg/dL (0.0-1.0); Blood Urea Nitrogen 14 mg/dL (9-16); Calcium 9.1 mg/dL (8.4-10.2); Carbon Dioxide 31 mmol/L (22-29); Chloride 107 mmol/L (96-108); Creatinine Clr Calc Pharmacy 99.1; Estimated Glomerular Filt Rate > 60; Glucose Random 83 mg/dL (60-115); Potassium 4.5 mmol/L (3.3-5.1); Sodium 142 mmol/L (135-145)
[2022-12-09] MEDS: LORazepam 1 MG TABLET 2 MG PO (22:58)
--- NOTE | 2022-12-10 06:00 | PC.NURSE ---
Patient slept through the night, no distress observed/reported, engaged well with care team clinician, disposition is voluntary inpatient dual diagnosis bed search, med rec completed/pending provider's approval, ativan 2 mg po administered at 2258 with + effect, labs completed/resulted, behavior non concerning, VSS, will continue to monitor.
[2022-12-10 06:39] VITALS: BP 93/51; PULSE 62; RESP 16; TEMP 36.6; O2SAT 97
--- NOTE | 2022-12-10 07:12 | PC.NURSE ---
resumed care of patient this morning, they are currently sleeping in room at this time, pt is a current bed search for duel diagnosis. safety measures in place at this time.
[2022-12-10 08:55] VITALS: BP 120/70; PULSE 64; RESP 15; TEMP 36.8; O2SAT 97
[2022-12-10 09:05] VITALS: PULSE 64
[2022-12-10] MEDS: LORazepam 1 MG TABLET PO (09:50)
[2022-12-10 14:37] VITALS: BP 103/61; PULSE 58; RESP 15; TEMP 36.6; O2SAT 99
[2022-12-10] MEDS: LORazepam 1 MG TABLET 2 MG PO ×2 (15:28→19:04)
--- NOTE | 2022-12-10 16:01 | MHC.CARE ---
12/10/22 Dual dx bed search conducted & bed search is exhausted. There are no dual beds available this weekend across the state.
--- NOTE | 2022-12-10 16:21 | PC.NURSE ---
Pt reports feeling not good pacing salmon with blanket over his head, ativan administered, effects pending.
--- NOTE | 2022-12-10 18:19 | PC.NURSE ---
Pt pacing, appears anxious, report sx of withdrawal. Requesting to see provider, Dr. Martinez aware.
[2022-12-10] MEDS: Ondansetron ODT 4 MG TAB.RAPDIS TRANSLINGU (19:05)
[2022-12-10] MEDS: cloNIDine HCL 0.2 MG TABLET 0.3 MG PO (19:05)
[2022-12-10] MEDS: Buprenorphine/Naloxone 8/2 mg FILM 1 FILM SUBLINGUAL (20:02)
[2022-12-10 21:27] VITALS: BP 106/70; PULSE 98; RESP 18; TEMP 36.9; O2SAT 98
[2022-12-10 21:45] VITALS: PULSE 98
[2022-12-11] MEDS: LORazepam 1 MG TABLET PO ×3 (03:16→08:03)
[2022-12-11 03:20] VITALS: BP 95/50; PULSE 67; RESP 19; TEMP 36.6; O2SAT 99
[2022-12-11 03:30] VITALS: PULSE 67
--- NOTE | 2022-12-11 04:06 | PC.NURSE ---
Patient is in bed appears sleeping, while awake patient is constantly reporting he is withdrawing from Benzos and Fentanyle , Cow @ 2144 was 7 and @ 0330 was 6, Ativan 2 mg administered at 190, suboxone 8/2 mg @ 2120, and ativan 1 mg po @ 315, Addiction consult ordered for treatment, disposition per care team is voluntary inpatient dual diagnosis bed search, behavior argumentative and confrontational at time threatening but re-directable, will continue to monitor.
[2022-12-11 07:30] VITALS: BP 116/74; PULSE 80; RESP 16; TEMP 37; O2SAT 98
[2022-12-11] MEDS: Buprenorphine/Naloxone 8/2 mg FILM 1 FILM SUBLINGUAL (08:02)
--- NOTE | 2022-12-11 08:30 | PC.NURSE ---
pt reports withdrawl from fentanyl and benzo's, informed and medicated as ordered, pt COWS score 13, vitals stable, pt now resting in bed w tv on
[2022-12-11] MEDS: Ondansetron ODT 4 MG TAB.RAPDIS TRANSLINGU (10:58)
[2022-12-11] MEDS: cloNIDine HCL 0.1 MG TABLET PO (10:58)
[2022-12-11] MEDS: Buprenorphine/Naloxone 8/2 mg FILM 2 FILM SUBLINGUAL (11:00)
--- NOTE | 2022-12-11 11:18 | MHC.RECOVRN ---
This investigative writer met with patient after addiction consult was placed. Patient was in salmon c/o of withdrawal s/s. Patient reports experiencing precipitated withdrawal 12/10 after receiving 8mg BUP film, patient reports, continues to feel s/s of withdrawal this a.m. Patient reporting nausea, body aches, runny nose, runny eyes, goose flesh. Patient reports [employer], daily use 2 bundles heroin, [place], and 10 illicit BZO daily, [employer] Monday12/09/22 patient reports IN use of 2 bags of heroin. Patient reports using this amount daily for past 3 years. Patient reports in the past had tried MTD and BUP. Patient reports various levels of treatment ATS, CSS. Patient states had phone intake Monday12/09/22 at [facility], was told could not return due to threatening behaviour towards staff. Patient states goal of sobriety, patient reports due to withdrawal feeling anxious to leave. T/W reviewed macrodose titrataion, comfort meds given, then patient to take 2, 8mg BUP films under the tongue. Reviewed this method floods opiate receptors up to 70% thusly eliminating precipitated withdrawal. Patient agreeable. Patient verbalized understanding and states no questions/concerns at this time. Provider Molly Nielson ordering 2, 8mg BUP films. ED RN Edson aware of plan of care.
[2022-12-11 13:15] VITALS: RESP 20
--- NOTE | 2022-12-11 14:03 | PC.NURSE ---
pt slept till a little before 1400 and came out of his room and states he wants to leave, denies si, spoke w CARE team and they will discuss w the md, pt reports withdrawl symptoms and wants to leave and use
--- NOTE | 2022-12-11 14:38 | MHC.RECOVRN ---
Patient reporting wants to leave the hospital, t/w reviewed f/u at [facility] to continue on BUP, patient provided w/ [facility], detox list to f/u from the community. Patient verbalized understanding.
== END 2022-12-11 15:00 | disposition home or self-care (01) ==
PROVIDERS: Emergency Provider Emergency Medicine
DX: F33.1 Major depressive disorder, recurrent, moderate (principal); R45.851 Suicidal ideations; F11.19 Opioid abuse with unspecified opioid-induced disorder; F17.210 Nicotine dependence, cigarettes, uncomplicated; Z20.822 Contact with and (suspected) exposure to COVID-19; Z20.828 Contact with and (suspected) exposure to other viral communicable diseases; Z71.6 Tobacco abuse counseling; Z79.899 Other long term (current) drug therapy
CPT/HCPCS: 80053; 80307; 85025; 87635; 99285; S9485

== ENCOUNTER 2023-05-08 21:42 | Emergency (ER) | payer MEDICAID, SELFPAY ==
--- NOTE | 2023-05-08 | ECG_ITS ---
Test Reason : cp Blood Pressure : / mmHG Vent. Rate : 102 BPM Atrial Rate : 102 BPM P-R Int : 150 ms QRS Dur : 076 ms QT Int : 338 ms P-R-T Axes : 078 066 062 degrees QTc Int : 440 ms Sinus tachycardia Nonspecific ST abnormality Abnormal ECG When compared with ECG of 29-OCT-2021 19:09, Vent. rate has increased BY 34 BPM Non-specific change in ST segment in Inferior leads Referred By: Generic ED Physician Electronically Signed By:HENRY PAYAN
--- NOTE | ~2023-05-08 | XR_ITS ---
EXAMINATION: XR CHEST CLINICAL INFORMATION: Chest pain. Tightness. COMPARISON: CT chest dated 04/12/2022. TECHNIQUE: Frontal view of the chest was obtained. FINDINGS: The lungs are clear. The cardiomediastinal silhouette is normal in size. There is no pleural effusion or pneumothorax. No acute osseous abnormality. XR/XR chest 1V IMPRESSION: No acute cardiopulmonary findings.
[2023-05-08 21:44] VITALS: BP 137/82; PULSE 100; RESP 18; TEMP 37.6; O2SAT 95; BMI 22.5
[2023-05-08 22:01] LABS: Basophils Percent Auto 0.5 % (0-2); Eosinophils Absolute Auto 0.1 X10*3/uL (0.0-0.4); Eosinophils Percent Auto 0.8 % (0-4); Hematocrit 45.5 % (42.0-52.0); Hemoglobin 15.4 g/dl (14.0-18.0); Imm Gran Abs Auto 0.01 X10*3/uL (0.00-0.03); Imm Gran Pct Auto 0.1 % (0.0-0.4); Lymphocytes Absolute Auto 2.1 X10*3/uL (1.2-4.9); Lymphocytes Percent Auto 23.9 % (20-40); MANUAL DIFF FLAG NO; Mean Corpuscular HGB Conc 33.8 g/dl (31.0-36.0); Mean Corpuscular Hemoglobin 28.9 pg (27.0-33.0); Mean Corpuscular Volume 85.5 fL (80.0-98.0); Mean Platelet Volume 10.5 fL (9.4-12.4); Monocytes Absolute Auto 0.5 X10*3/uL (0.1-1.2); Monocytes Percent Auto 5.5 % (2-11); Neutrophils Percent Auto 69.2 % (45-73); Platelet Count 197 X10*3/uL (160-400); Red Blood Count 5.32 X10*6/uL (4.60-5.80); Red Cell Distribution Width 11.9 % (11.0-16.0); White Blood Count 8.7 X10*3/uL (4.8-10.8)
[2023-05-08 22:14] LABS: COVID-19 Test Negative (Negative); IDNOW Serial# BCCEAD1C
[2023-05-08 22:15] LABS: Alanine Aminotransferase 10 U/L (0-40); Albumin Level 4.8 g/dL (3.5-5.0); Alkaline Phosphatase 68 U/L (39-117); Anion Gap 13 (12-20); Aspartate Amino Transferase 16 U/L (5-37); Bilirubin Total 0.8 mg/dL (0.0-1.0); Blood Urea Nitrogen 8 mg/dL (9-16); Calcium 9.9 mg/dL (8.4-10.2); Carbon Dioxide 26 mmol/L (22-29); Chloride 107 mmol/L (96-108); Creatinine Clr Calc Pharmacy 103.4; Estimated Glomerular Filt Rate > 60; Glucose Random 141 mg/dL (60-115); Potassium 3.7 mmol/L (3.3-5.1); Sodium 142 mmol/L (135-145); Total Protein 7.3 g/dL (6.5-8.0)
[2023-05-08 22:24] VITALS: BP 123/85; PULSE 105; RESP 12; TEMP 37.2; O2SAT 97
[2023-05-08 22:29] LABS: Troponin-I High Sensitivity < 2.7 ng/L (<3.5-35.0)
[2023-05-08 22:30] VITALS: PULSE 89
--- NOTE | 2023-05-08 22:52 | ED.GENADULT ---
HPI - General Adult General Chief complaint: ETOH/Substance Use Stated complaint: Chest PainBenzoWithdrawals/Heart racing/passed out Time Seen by Provider: 05/08/23 22:51 Source: patient Mode of arrival: ambulatory Limitations: no limitations History of Present Illness HPI narrative: Patient history of polysubstance abuse also taking Klonopin for last 5 years 4-5 mg daily stopped Five days feeling jittery and tremulous nauseous and has taken cocaine 2 days ago also complaining of chest discomfort Related Data Home Medications Medication Instructions Recorded Confirmed clonidine HCl 0.1 mg tablet 0.1 mg PO BID PRN Anxiety 12/09/22 12/09/22 fluoxetine 20 mg capsule 20 mg PO QAM 12/09/22 12/09/22 olanzapine 2.5 mg tablet 2.5 mg PO BID 12/09/22 12/09/22 Previous Rx's Medication Instructions Recorded albuterol sulfate 90 mcg/actuation 2 puff inhalation Q4-6H PRN 05/08/23 aerosol inhaler (ProAir HFA) shortness of breath or wheezing #8.5 grams clonazepam 1 mg tablet (Klonopin) 1 mg PO BID #7 tabs 05/08/23 trazodone 50 mg tablet 50 mg PO BEDTIME #30 tabs 05/08/23 Allergies Allergy/AdvReac Type Severity Reaction Status Date / Time mayonnaise [MAYONNAISE] Allergy Intermediate THROAT AND Verified 05/08/23 21:49 TONGUE ITCH quetiapine [From SEROQUEL] Allergy Intermediate DYSTONIA Verified 05/08/23 21:49 cat dander [CATS] Allergy Unknown WATERY Verified 05/08/23 21:49 EYES, SNEEZING dog dander [DOG] Allergy Unknown UNKNOWN Verified 05/08/23 21:49 paroxetine [From PAXIL] Allergy Unknown FLU LIKE Verified 05/08/23 21:49 SYMPTOMS penicillin V Allergy Unknown Unknown Verified 05/08/23 21:49 Penicillins [PENICILLINS] Allergy Unknown SWELLING Verified 05/08/23 21:49 SEAFOOD Allergy Severe DIFFICULTY Uncoded 05/12/21 00:16 BREATHING Review of Systems Review of Systems: Yes all other systems are reviewed and are negative PMFSH Past Medical History Medical History ACL (anterior cruciate ligament) rupture Asthma Hepatitis C Hepatitis C antibody positive in blood Knee cartilage, torn, right Substance abuse withdrawal Social History Social History Household Members: Family Household Members Other:: 3 Housing: House Do you presently have visiting nurse or other home services: No Unable to assess alcohol history related to: Unknown Alcohol intake: former Patient Tobacco Use Status: Current everyday Tobacco user Tobacco use type: Cigarette Cigarettes Per Day: 10 Years Smoked: 15 Smoked in Last 30 Days: Yes e-Cigarette/Vaping Use: Never Used Substance Use Type: Marijuana, Opiates and Other Advance Directives: No Advance Directives Information Provided: Yes service: No Sexual orientation: Straight/Heterosexual Physical Exam ED Vital Signs: Vital Signs - 24 hr 05/08/23 21:44 05/08/23 22:24 Temperature 99.6 F 98.9 F Pulse Rate 100 105 H Respiratory Rate 18 12 Blood Pressure 137/82 123/85 Pulse Oximetry 95 97 Oxygen Delivery Method Room Air Room Air BMI result Body Mass Index 22.5 Appearance: Alert. Oriented X3. No acute distress. Anxious tremulous Eyes: PERRLA, No Nystagmus ENT: Pharynx normal. Oral Mucosa moist Neck: Normal inspection. Neck supple. CVS: Normal heart rate and rhythm. Pulses normal. Respiratory: No respiratory distress. Equal air entry bilateral, no wheezing/rales/rhonchi Abdomen: Soft and nontender. Bowel sounds are present, no mass palpable, no CVA tenderness Skin: Skin warm and dry. Normal skin color. Normal skin turgor. Extremities: No lower extremity edema. No calf tenderness Neuro: Oriented X 3. No motor deficit. No sensory deficit.No cerebellar signs , cranial nerves II-XII intact Medical Decision Making Differential Diagnosis Differential Diagnoses: The differential diagnosis associated with the presentation includes Substance abuse/withdrawal Lab Data MDM Lab Attestation statement: I reviewed the patient's lab results. 05/08/23 21:55 05/08/23 21:55 Labs: Lab Results 05/08/23 05/08/23 05/08/23 Range/Units 21:55 21:55 21:55 WBC 8.7 (4.8-10.8) X10*3/uL RBC 5.32 (4.60-5.80) X10*6/uL Hgb 15.4 (14.0-18.0) g/dl Hct 45.5 (42.0-52.0) % MCV 85.5 (80.0-98.0) fL MCH 28.9 (27.0-33.0) pg MCHC 33.8 (31.0-36.0) g/dl RDW 11.9 (11.0-16.0) % Plt Count 197 D (160-400) X10*3/uL MPV 10.5 (9.4-12.4) fL Immature Gran % (Auto) 0.1 (0.0-0.4) % Neut % (Auto) 69.2 (45-73) % Lymph % (Auto) 23.9 (20-40) % [place] % (Auto) 5.5 (2-11) % Eos % (Auto) 0.8 (0-4) % Baso % (Auto) 0.5 (0-2) % Lymph # (Auto) 2.1 (1.2-4.9) X10*3/uL [place] # (Auto) 0.5 (0.1-1.2) X10*3/uL Eos # (Auto) 0.1 (0.0-0.4) X10*3/uL Baso # (Auto) 0.0 (0.0-0.2) X10*3/uL Abs Immat Gran (auto) 0.01 (0.00-0.03) X10*3/uL Absolute Neuts (auto) 6.0 (2.0-8.3) x10*3/uL Absolute Nucleated RBC 0.000 (0.0-0.012) X10*3/uL Nucleated RBC % (auto) 0.0 (0.0-0.2) /100WBC Sodium 142 (135-145) mmol/L Potassium 3.7 (3.3-5.1) mmol/L Chloride 107 (96-108) mmol/L Carbon Dioxide 26 (22-29) mmol/L Anion Gap 13 (12-20) BUN 8 L (9-16) mg/dL Creatinine 1.01 (0.5-1.4) mg/dL Estim Creat Clear Calc 103.4 Estimated GFR > 60 Random Glucose 141 H (60-115) mg/dL Calcium 9.9 D (8.4-10.2) mg/dL Total Bilirubin 0.8 (0.0-1.0) mg/dL AST 16 (5-37) U/L ALT 10 (0-40) U/L Alkaline Phosphatase 68 (39-117) U/L Troponin I High Sens < 2.7 (<3.5-35.0) ng/L Total Protein 7.3 (6.5-8.0) g/dL Albumin 4.8 (3.5-5.0) g/dL COVID-19 (NAY) (Negative) COVID-19 Clin Com 05/08/23 Range/Units 21:55 WBC (4.8-10.8) X10*3/uL RBC (4.60-5.80) X10*6/uL Hgb (14.0-18.0) g/dl Hct (42.0-52.0) % MCV (80.0-98.0) fL MCH (27.0-33.0) pg MCHC (31.0-36.0) g/dl RDW (11.0-16.0) % Plt Count (160-400) X10*3/uL MPV (9.4-12.4) fL Immature Gran % (Auto) (0.0-0.4) % Neut % (Auto) (45-73) % Lymph % (Auto) (20-40) % [place] % (Auto) (2-11) % Eos % (Auto) (0-4) % Baso % (Auto) (0-2) % Lymph # (Auto) (1.2-4.9) X10*3/uL [place] # (Auto) (0.1-1.2) X10*3/uL Eos # (Auto) (0.0-0.4) X10*3/uL Baso # (Auto) (0.0-0.2) X10*3/uL Abs Immat Gran (auto) (0.00-0.03) X10*3/uL Absolute Neuts (auto) (2.0-8.3) x10*3/uL Absolute Nucleated RBC (0.0-0.012) X10*3/uL Nucleated RBC % (auto) (0.0-0.2) /100WBC Sodium (135-145) mmol/L Potassium (3.3-5.1) mmol/L Chloride (96-108) mmol/L Carbon Dioxide (22-29) mmol/L Anion Gap (12-20) BUN (9-16) mg/dL Creatinine (0.5-1.4) mg/dL Estim Creat Clear Calc Estimated GFR Random Glucose (60-115) mg/dL Calcium (8.4-10.2) mg/dL Total Bilirubin (0.0-1.0) mg/dL AST (5-37) U/L ALT (0-40) U/L Alkaline Phosphatase (39-117) U/L Troponin I High Sens (<3.5-35.0) ng/L Total Protein (6.5-8.0) g/dL Albumin (3.5-5.0) g/dL COVID-19 (NAY) Negative (Negative) COVID-19 Clin Com See Note Independent Interpretation I performed an independent interpretation of an: EKG Interpretation: Sinus tachycardia with heart rate of 102 beats per minute normal interval normal axis no acute ST T wave changes no acute ischemia Discharge Plan Discharge Clinical Impression: Moderate benzodiazepine use disorder, Polysubstance abuse Patient Disposition: Home, Self-Care Instructions: Polysubstance Abuse (ED) Additional Instructions: Increase the dose of Klonopin in a tapering fashion the next 3- 4 days Stop using other drugs Follow detox Trazodone for sleep Prescriptions: New clonazepam [Klonopin] 1 mg tablet 1 mg PO BID Qty: 7 0RF Rx Instructions: Take 1 tablet 3 times a day, next day take 1 tablet twice daily and then take only 1 tablet daily until finished trazodone 50 mg tablet 50 mg PO BEDTIME Qty: 30 0RF albuterol sulfate [ProAir HFA] 90 mcg/actuation HFA aerosol inhaler 2 puff inhalation Q4-6H PRN (Reason: shortness of breath or wheezing) Qty: 8.5 0RF No Action clonidine HCl 0.1 mg tablet 0.1 mg PO BID PRN (Reason: Anxiety) olanzapine 2.5 mg tablet 2.5 mg PO BID fluoxetine 20 mg capsule 20 mg PO QAM
[2023-05-09] MEDS: Albuterol Sulfate 90 MCG 8 GM INHALER 2 PUFF INHALE (00:53)
[2023-05-09] MEDS: clonazePAM 1 MG TABLET 2 MG PO (00:53)
[2023-05-09 01:21] VITALS: BP 128/60; PULSE 91; RESP 16; TEMP 36.8; O2SAT 98
== END 2023-05-09 01:24 | disposition home or self-care (01) ==
PROVIDERS: Emergency Provider Internal Medicine
DX: R07.89 Other chest pain (principal); R00.0 Tachycardia, unspecified; F19.239 Other psychoactive substance dependence with withdrawal, unspecified; F14.10 Cocaine abuse, uncomplicated; R11.2 Nausea with vomiting, unspecified; F17.210 Nicotine dependence, cigarettes, uncomplicated; Z20.822 Contact with and (suspected) exposure to COVID-19; Z20.828 Contact with and (suspected) exposure to other viral communicable diseases; Z71.6 Tobacco abuse counseling; Z79.899 Other long term (current) drug therapy
CPT/HCPCS: 71045; 80053; 84484; 85025; 87635; 93005; 99284; 99285

== ENCOUNTER 2023-05-15 10:57 | Outpatient (REF) | payer MEDICAID, SELFPAY ==
--- NOTE | ~2023-05-15 | CT_ITS ---
EXAMINATION: CT CHEST WITHOUT CONTRAST CLINICAL INFORMATION: Abnormal lung finding. COMPARISON: 05/08/2023 chest radiograph, 04/12/[address] TECHNIQUE: Multidetector volumetric CT imaging of the chest was done. Axial MIP volume rendering provided. Sagittal and coronal reformatted images were obtained. This CT examination was performed using dose optimization techniques as appropriate, variously including the following: *Automated exposure control *Adjustment of mA and/or kV according to patient size (this includes techniques or standardized protocols for targeted exams where dose is matched to indication/reason for exam; i.e. extremities or head) *Use of iterative reconstruction technique DLP: 234 mGy-cm FINDINGS: MIRROR SILVERER: Negative LUNGS: Trachea and bronchi are patent. Lungs are hyper aerated with no consolidations. Previous left upper lobe groundglass opacity has resolved. Right upper lobe intrabronchial nodule seen on previous study is no longer identified, likely representing resolution of mucous plug. NODULES: RUL: No change 3 mm subpleural, 5:263. HORACE: Stable 2 mm subpleural calcified nodule, 5:102. MEDIASTINUM: Unremarkable thyroid. No pathologic lymphadenopathy. Nonenlarged heart. No pericardial effusion. Nonaneurysmal aorta. Nonenlarged pulmonary arteries. CORONARY ARTERY CALCIFICATION: None visualized on this study. PLEURA: There is no pleural effusion. No pleural mass or thickening. AXILLA: No lymphadenopathy. UPPER ABDOMEN: No upper abdominal pathology recognized. OSSEOUS STRUCTURES: No change small right sternal benign-appearing lucency. Smoothly bordered 6 mm left sided L2 vertebral body lucency, region not previously included. CT/CT chest wo IV con IMPRESSION: Stable pulmonary nodules, none larger than 3 mm. Indeterminate, benign-appearing 6 mm lucency L2 vertebral body.
== END 2023-05-15 10:58 | disposition home or self-care (01) ==
LOC: HO.CT 10:57
PROVIDERS: Visit Provider Internal Medicine Pulmonary Disease
DX: R91.8 Other nonspecific abnormal finding of lung field (principal)
CPT/HCPCS: 71250

== ENCOUNTER 2023-06-05 22:31 | Inpatient (IN) | payer MEDICAID, OTHER, SELFPAY ==
[2023-06-05 22:36] VITALS: BP 115/67; PULSE 86; RESP 20; TEMP 36.7; O2SAT 95; BMI 23.0
[2023-06-05 22:59] LABS: MANUAL DIFF FLAG NO
[2023-06-05 23:00] LABS: Basophils Percent Auto 0.4 % (0-2); Eosinophils Absolute Auto 0.2 X10*3/uL (0.0-0.4); Hematocrit 41.4 % (42.0-52.0); Hemoglobin 13.8 g/dl (14.0-18.0); Imm Gran Abs Auto 0.01 X10*3/uL (0.00-0.03); Imm Gran Pct Auto 0.1 % (0.0-0.4); Lymphocytes Absolute Auto 1.8 X10*3/uL (1.2-4.9); Lymphocytes Percent Auto 22.1 % (20-40); Mean Corpuscular HGB Conc 33.3 g/dl (31.0-36.0); Mean Corpuscular Hemoglobin 29.4 pg (27.0-33.0); Mean Corpuscular Volume 88.3 fL (80.0-98.0); Mean Platelet Volume 10.5 fL (9.4-12.4); Monocytes Absolute Auto 0.5 X10*3/uL (0.1-1.2); Monocytes Percent Auto 5.6 % (2-11); Neutrophils Absolute Auto 5.6 x10*3/uL (2.0-8.3); Neutrophils Percent Auto 69.8 % (45-73); Platelet Count 147 X10*3/uL (160-400); Red Blood Count 4.69 X10*6/uL (4.60-5.80)
[2023-06-05 23:16] LABS: Appearance Urine Clear; Color Urine Yellow; Glucose Urine UA Negative (Negative); Leukocyte Esterase Urine Negative (Negative); Nitrite Urine Negative (Negative); PH 6.5 (5.0-9.0); Specific Gravity - Urine >= 1.030 (1.005-1.025); Urine Blood Negative (Negative); Urine Ketones Negative (Negative); Urine Protein Negative (Neg-Trace)
[2023-06-05 23:27] LABS: Amphetamine Screen Urine Not Detected (Not Detect); Barbiturates, Urine Not Detected (Not Detect); Benzodiazepines Screen Urine POSITIVE (Not Detect); Cannabinoid Screen Urine POSITIVE (Not Detect); Cocaine Screen Urine POSITIVE (Not Detect); Fentanyl, urine POSITIVE (Not Detect); Opiate Screen Urine POSITIVE (Not Detect); Phencyclidine Screen Urine Not Detected (Not Detect)
[2023-06-05 23:29] LABS: Alanine Aminotransferase 9 U/L (0-40); Albumin Level 4.6 g/dL (3.5-5.0); Alkaline Phosphatase 54 U/L (39-117); Anion Gap 15 (12-20); Aspartate Amino Transferase 18 U/L (5-37); Bilirubin Total 0.5 mg/dL (0.0-1.0); Blood Urea Nitrogen 13 mg/dL (9-16); Calcium 9.2 mg/dL (8.4-10.2); Carbon Dioxide 25 mmol/L (22-29); Chloride 109 mmol/L (96-108); Creatinine Clr Calc Pharmacy 86.3; Estimated Glomerular Filt Rate > 60; Ethanol < 10 mg/dL; Glucose Random 97 mg/dL (60-115); Potassium 3.9 mmol/L (3.3-5.1); Sodium 145 mmol/L (135-145); Total Protein 7.1 g/dL (6.5-8.0)
--- NOTE | 2023-06-06 00:49 | ED.PSYCH ---
HPI - Psych General Chief Complaint: Psychiatric Symptoms Stated Complaint: SI/Crisis Time Seen by Provider: 06/05/23 22:41 Source: patient Mode of arrival: ambulatory Limitations: no limitations History of Present Illness HPI Narrative: Patient is a 37-year-old male who presents emergency department for evaluation of suicidal ideation without any specific plan. He states that he has been having worsening depression and anxiety for the past few weeks and having panic attacks. He states he has not been any medications for the past 2 years. He endorses recreation drug usage including benzos and intranasal fentanyl. He states he would like assistance with detox from fentanyl as well. Denies any homicidal ideation. Denies any physical complaints at this time. Related Data Home Medications Medication Instructions Recorded Confirmed albuterol sulfate 90 mcg/actuation 2 puff inhalation Q4-6H PRN 06/05/23 06/05/23 aerosol inhaler (Ventolin HFA) wheezing trazodone 50 mg tablet 50 mg PO BEDTIME 06/05/23 06/05/23 Allergies Allergy/AdvReac Type Severity Reaction Status Date / Time mayonnaise [MAYONNAISE] Allergy Intermediate THROAT AND Verified 05/08/23 21:49 TONGUE ITCH quetiapine [From SEROQUEL] Allergy Intermediate DYSTONIA Verified 05/08/23 21:49 cat dander [CATS] Allergy Unknown WATERY Verified 05/08/23 21:49 EYES, SNEEZING dog dander [DOG] Allergy Unknown UNKNOWN Verified 05/08/23 21:49 paroxetine [From PAXIL] Allergy Unknown FLU LIKE Verified 05/08/23 21:49 SYMPTOMS penicillin V Allergy Unknown Unknown Verified 05/08/23 21:49 Penicillins [PENICILLINS] Allergy Unknown SWELLING Verified 05/08/23 21:49 SEAFOOD Allergy Severe DIFFICULTY Uncoded 05/12/21 00:16 BREATHING Review of Systems Review of Systems: Yes all other systems are reviewed and are negative PMFSH Past Medical History Attestation statement: The following information was validated with the patient. Source: old records reviewed Medical History Knee cartilage, torn, right ACL (anterior cruciate ligament) rupture Substance abuse withdrawal Asthma Hepatitis C Hepatitis C antibody positive in blood Social History Social History Household Members: Family Household Members Other:: 3 Housing: House Do you presently have visiting nurse or other home services: No Unable to assess alcohol history related to: Unknown Alcohol intake: former Patient Tobacco Use Status: Current everyday Tobacco user Tobacco use type: Cigarette Cigarettes Per Day: 10 Years Smoked: 15 e-Cigarette/Vaping Use: Never Used Substance Use Type: Marijuana, Opiates and Other Advance Directives: No Advance Directives Information Provided: Yes service: No Sexual orientation: Straight/Heterosexual Physical Exam Vital Signs: Vital Signs: Last Vital Signs Temp 98.0 F 06/05/23 22:36 Pulse 86 06/05/23 22:36 Resp 20 06/05/23 22:36 BP 115/67 06/05/23 22:36 Pulse Ox 95 06/05/23 22:36 O2 Del Method Room Air 06/05/23 22:36 BMI result Body Mass Index 23.0 Appearance: Alert.?Oriented to person, place and time. No acute distress.?Normal affect. Eyes: Pupils equal, round and reactive to light.? ENT: Pharynx normal.?? Neck: Normal inspection.? Neck supple.?? CVS: Heart sounds normal. Normal heart rate and rhythm.? Pulses normal.?? Respiratory: No respiratory distress.? Lung sounds clear to auscultation bilaterally?? Abdomen: Soft and non-tender. Normoactive bowel sounds. No pulsatile mass.?? Skin: Skin warm and dry.? Normal skin color.? Normal skin turgor.?? Extremities: No lower extremity edema.? No calf ttp? Neuro: Moves all extremities spontaneously. Sensation intact bilaterally. CN II-XII intact. No focal neuro deficits. Ambulates with normal steady gait. Medical Decision Making Medical Decision Making MDM Narrative: Patient is a 37-year-old male past medical history of polysubstance abuse, depression, PTSD presenting to emergency department with suicidal ideations and no specific plan. At the time my evaluation he is overall well-appearing, calm, cooperative, physical examination is benign. Plan to obtain basic labs for medical clearance and refer to CARE team for further evaluation for potential inpatient psychiatric care and detox Differential Diagnosis Differential Diagnoses: The differential diagnosis associated with the presentation includes (Polysubstance use, suicidal ideations, psychosis,) Admission/Observation Consideration of admission/observation: Escalation of care including admission/observation considered (Physician observation for care team evaluation) Consult Healthcare Provider Management of the patient was discussed with: Behavioral Health Provider (As noted above) Lab Data MDM Lab Attestation statement: I reviewed the patient's lab results. CBC is without leukocytosis, very mild normocytic anemia, thrombocytopenia which is been seen on prior labs. CMP is overall unremarkable. Urinalysis without evidence of infection or microscopic hematuria. Urine toxicology positive for polysubstance. 06/05/23 22:53 06/05/23 22:53 Labs: Lab Results 06/05/23 06/05/23 Range/Units 22:53 23:03 WBC 8.0 (4.8-10.8) X10*3/uL RBC 4.69 (4.60-5.80) X10*6/uL Hgb 13.8 L (14.0-18.0) g/dl Hct 41.4 L (42.0-52.0) % MCV 88.3 (80.0-98.0) fL MCH 29.4 (27.0-33.0) pg MCHC 33.3 (31.0-36.0) g/dl RDW 12.0 (11.0-16.0) % Plt Count 147 L D (160-400) X10*3/uL MPV 10.5 (9.4-12.4) fL Immature Gran % (Auto) 0.1 (0.0-0.4) % Neut % (Auto) 69.8 (45-73) % Lymph % (Auto) 22.1 (20-40) % [place] % (Auto) 5.6 (2-11) % Eos % (Auto) 2.0 (0-4) % Baso % (Auto) 0.4 (0-2) % Lymph # (Auto) 1.8 (1.2-4.9) X10*3/uL [place] # (Auto) 0.5 (0.1-1.2) X10*3/uL Eos # (Auto) 0.2 (0.0-0.4) X10*3/uL Baso # (Auto) 0.0 (0.0-0.2) X10*3/uL Abs Immat Gran (auto) 0.01 (0.00-0.03) X10*3/uL Absolute Neuts (auto) 5.6 (2.0-8.3) x10*3/uL Absolute Nucleated RBC 0.000 (0.0-0.012) X10*3/uL Nucleated RBC % (auto) 0.0 (0.0-0.2) /100WBC Sodium 145 (135-145) mmol/L Potassium 3.9 (3.3-5.1) mmol/L Chloride 109 H (96-108) mmol/L Carbon Dioxide 25 (22-29) mmol/L Anion Gap 15 (12-20) BUN 13 (9-16) mg/dL Creatinine 1.24 (0.5-1.4) mg/dL Estim Creat Clear Calc 86.3 Estimated GFR > 60 Random Glucose 97 (60-115) mg/dL Calcium 9.2 D (8.4-10.2) mg/dL Total Bilirubin 0.5 (0.0-1.0) mg/dL AST 18 (5-37) U/L ALT 9 (0-40) U/L Alkaline Phosphatase 54 (39-117) U/L Total Protein 7.1 (6.5-8.0) g/dL Albumin 4.6 (3.5-5.0) g/dL Urine Color Yellow Urine Appearance Clear Urine pH 6.5 (5.0-9.0) Ur Specific [place] >= 1.030 H (1.005-1.025) Urine Protein Negative (Neg-Trace) mg/dL Urine Glucose (UA) Negative (Negative) mg/dL Urine Ketones Negative (Negative) mg/dL Urine Blood Negative (Negative) Urine Nitrite Negative (Negative) Ur Leukocyte Esterase Negative (Negative) Urine Opiates Screen POSITIVE H (Not Detect) Urine Fentanyl Screen POSITIVE H (Not Detect) Ur Barbiturates Screen Not Detected (Not Detect) Ur Phencyclidine Scrn Not Detected (Not Detect) Ur Amphetamines Screen Not Detected (Not Detect) U Benzodiazepines Scrn POSITIVE H (Not Detect) Urine Cocaine Screen POSITIVE H (Not Detect) U Marijuana (THC) Screen POSITIVE H (Not Detect) Ethyl Alcohol < 10 mg/dL Social Determinants Patient?s care significantly limited by Social Determinants of Health including: Alcoholism and drug addiction in family Discharge Plan Discharge Clinical Impression: Polysubstance abuse, Suicidal ideation Patient Disposition: Still a Patient Prescriptions: No Action trazodone 50 mg tablet 50 mg PO BEDTIME albuterol sulfate [Ventolin HFA] 90 mcg/actuation HFA aerosol inhaler 2 puff inhalation Q4-6H PRN (Reason: wheezing)
[2023-06-06 06:33] VITALS: BP 92/51; PULSE 58; RESP 17; TEMP 36.6; O2SAT 95
--- NOTE | 2023-06-06 06:51 | PC.NURSE ---
Patient slept through the night, no distress observed/reported, med rec completed/pending provider's approval, behavior non concerning, care consult ordered/pending evaluation, labs completed/resulted, VSS, will continue to monitor.
--- NOTE | 2023-06-06 10:41 | MHC.RECOVRN ---
Met with pt in 6 after pt expressed interest in methadone initiation. Pt presented to ED for SI and has been evaluated by CARE Team. Pt laying in bed, awake, alert, easily engages in conversation. Pt reports heroin/fentanyl use, 2 bundles daily, INH, x 2 years, last use yesterday. Pt reports switching from IN to INH approx one month ago. Pt also reports clonazepam, 3-5 mg daily, PO, x 8 months, last use yesterday. Pt reports marijuana use 3x monthly. Denies other substances. Pt reports withdrawal symptoms including diaphoresis and anxiety. Pt reports feeling more benzodiazepine withdrawal than opioid withdrawal. Pt does not request methadone initiation and continuation, prefers a taper to manage withdrawal symptoms. Discussed with provider, plan to administer 30 mg methadone and 1 mg clonazepam. RN aware.
[2023-06-06] MEDS: methADONE HCl 20 MG/2 ML ORAL.CONC 30 MG PO (10:51)
[2023-06-06] MEDS: clonazePAM 1 MG TABLET PO (10:52)
--- NOTE | 2023-06-06 10:56 | ECG_ITS ---
Test Reason : qt interval Blood Pressure : / mmHG Vent. Rate : 052 BPM Atrial Rate : 052 BPM P-R Int : 182 ms QRS Dur : 072 ms QT Int : 466 ms P-R-T Axes : 063 066 071 degrees QTc Int : 433 ms Sinus bradycardia with sinus arrhythmia Otherwise normal ECG When compared with ECG of 08-MAY-2023 21:50, Vent. rate has decreased BY 50 BPM Referred By: Chapis Fuentes Electronically Signed By:HENRY PAYAN
[2023-06-06 11:03] VITALS: BP 108/63; PULSE 56; RESP 16; TEMP 36.7; O2SAT 97
[2023-06-06 11:30] LABS: COVID-19 Test Negative (Negative); IDNOW Serial# 55D5AD1C
--- NOTE | 2023-06-06 15:00 | PC.NURSE ---
Ridge remained in bed for most of the shift. COWS 13 this AM and 30mg Methadone given per recommendation of the recovery team. 1mg Clonazepam given as well for withdrawal symptoms. Ridge does endorse SI and reports he would not be safe if he were to leave the hospital. Ridge denies HI/AVH. No beh concerns noted.
[2023-06-06 15:37] VITALS: BP 106/64; PULSE 63; RESP 20; TEMP 36.5; O2SAT 97
[2023-06-06] MEDS: chlorproMAZINE HCl 25 MG TABLET 50 MG PO ×2 (16:30→20:38)
[2023-06-06] MEDS: Gabapentin 300 MG CAPSULE PO ×2 (16:30→20:38)
[2023-06-06] MEDS: LORazepam 1 MG TABLET PO ×2 (16:30→20:37)
[2023-06-06] MEDS: Nicotine Polacrilex 2 MG GUM 4 MG BUCCAL (17:27)
--- NOTE | 2023-06-06 17:54 | PC.ADMIT ---
Nursing admission note: 37 year old male, referred for admission by CARE team. DX: Unspecified depressive disorder, Opioid use d/o, moderate. Signed conditional voluntary for admission. Patient self presented to [facility] with compliant of suicidal ideation, worsening depression and anxiety. Patient requesting assistance with detox and mental status. Patient engaged easily. A+O x4. Calm and cooperative with admission process. Reports mood is depressed, anxious, denies SI/HI plan or intent at this time. Affect congruent, tearful at times. Speech normal rate, tone, mickey. Reports feeling irritable. Thoughts linear and organized. Reports feelings of hopelessness. Denies perceptual disturbances at this time. Denies A/V hallucinations. No overt psychosis or expressed delusions. Dressed in hospital attire, skin check completed by RM RN and ancillary staff with no findings. Reports appetite fluctuates. Reports poor sleep, night terrors or something . Difficulty falling and maintaining sleep. Per crisis evaluation patient has history of previous hospitalization, including detox admissions. TOX screen positive for Opiate, Fentanyl, Benzodiazepine, cocaine and cannabis. Last use prior to admission, per report daily use of substance. Patient placed on CIWA q 4 hours. History of cutting. History of suicidal gesture by tying sheet around his neck during prior ED visit. History of previous incarcerations, denies current legal entanglements. Medical history includes DJD, chronic back pain. Asthma. Multiple allergies seafood, mayonaise, Quetiapine, cat and dog dander, Paroxetine, PCN. COVID screen negative. Placed on unit safety checks. See nursing assessment/crisis evaluation for further details.
[2023-06-06 20:20] VITALS: BP 108/73; PULSE 62; RESP 18; TEMP 36.9; O2SAT 97
[2023-06-06 20:25] VITALS: BP 108/73; PULSE 62; RESP 18; TEMP 36.9; O2SAT 97
[2023-06-06] MEDS: traZODone HCL 50 MG TABLET PO (20:38)
[2023-06-07] MEDS: hydrOXYzine HCL 25 MG TABLET PO ×2 (00:14→12:09)
[2023-06-07] MEDS: traZODone HCL 50 MG TABLET PO ×2 (00:15→22:03)
[2023-06-07] MEDS: LORazepam 1 MG TABLET PO ×4 (00:15→22:03)
[2023-06-07] MEDS: LORazepam 2 MG/ML VIAL IM (02:42)
[2023-06-07] MEDS: OLANZapine 10 MG VIAL IM (02:42)
[2023-06-07 08:00] VITALS: BP 106/58; PULSE 50; RESP 18; TEMP 36.9; O2SAT 95
[2023-06-07] MEDS: Gabapentin 300 MG CAPSULE PO ×3 (08:18→22:03)
[2023-06-07] MEDS: chlorproMAZINE HCl 25 MG TABLET 50 MG PO ×4 (08:18→22:03)
[2023-06-07] MEDS: methADONE HCl 20 MG/2 ML ORAL.CONC 30 MG PO (08:19)
[2023-06-07] MEDS: Acetaminophen 325 MG TABLET 650 MG PO (08:24)
[2023-06-07 09:08] LABS: Estimated Average Glucose 97 mg/dL
[2023-06-07 09:14] LABS: Alanine Aminotransferase 8 U/L (0-40); Albumin Level 4.5 g/dL (3.5-5.0); Alkaline Phosphatase 57 U/L (39-117); Anion Gap 11 (12-20); Aspartate Amino Transferase 17 U/L (5-37); Bilirubin Total 0.5 mg/dL (0.0-1.0); Blood Urea Nitrogen 14 mg/dL (9-16); Carbon Dioxide 28 mmol/L (22-29); Chloride 106 mmol/L (96-108); Cholesterol 139 mg/dL (<200); Creatinine Clr Calc Pharmacy 112.7; Estimated Glomerular Filt Rate > 60; Glucose Fasting 102 mg/dL (60-99); HDL Cholesterol 37 mg/dL (>40); LDL Cholesterol Calculated 80 mg/dL (<100); Potassium 4.2 mmol/L (3.3-5.1); Sodium 141 mmol/L (135-145); Total Protein 6.8 g/dL (6.5-8.0); Triglycerides 112 mg/dL (<150)
[2023-06-07 09:41] LABS: Free T4 (Free Thyroxine) 0.88 ng/dL (0.71-1.85); Thyroid Stimulating Hormone 1.05 uIU/mL (0.32-4.0)
[2023-06-07 09:49] LABS: Folate 6.6 ng/mL (> or = 4.0); Vitamin B12 348 pg/mL (200-900)
[2023-06-07] MEDS: Nicotine Polacrilex 2 MG GUM 4 MG BUCCAL (10:59)
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
--- NOTE | 2023-06-07 13:23 | MHC.CLN ---
NUTRITION CONSULT FOR QUESTION OF WEIGHT LOSS, APPETITE DISTURBANCE. REVIEWED WEIGHT HX FROM CHART X 2 YEARS. SHOWS WEIGHT LOSS, NOT SIGNIFICANT, X 8 MONTHS OF -7.3%. OVERALL, NO SIGNIFICANT WEIGHT CHANGE X 2 YEARS. NO ADDITIONAL NUTRITION INTERVENTIONS AT THIS TIME.
[2023-06-07 21:58] VITALS: BP 102/65; PULSE 82; RESP 16; TEMP 36.3; O2SAT 96
[2023-06-07] MEDS: Prazosin HCL 1 MG CAPSULE PO (22:03)
[2023-06-08] MEDS: LORazepam 1 MG TABLET PO (04:58)
[2023-06-08] MEDS: Nicotine Polacrilex 2 MG GUM 4 MG BUCCAL ×2 (05:00→07:23)
[2023-06-08 07:00] VITALS: BMI 22.2
[2023-06-08 08:00] VITALS: BP 103/63; PULSE 80; RESP 18; TEMP 36.6; O2SAT 96
[2023-06-08] MEDS: methADONE HCl 20 MG/2 ML ORAL.CONC 30 MG PO (08:03)
[2023-06-08] MEDS: chlorproMAZINE HCl 25 MG TABLET 50 MG PO ×2 (08:04→11:09)
[2023-06-08] MEDS: Gabapentin 300 MG CAPSULE PO (08:04)
--- NOTE | 2023-06-08 09:07 | HO.PSYCHPN ---
Subjective Subjective Reason For Visit: SI Diagnostics Vital Signs (24Hr): Vital Signs - 24 hr 06/07/23 21:58 06/08/23 08:00 Temperature 97.4 F 97.9 F Pulse Rate 82 80 Respiratory Rate 16 18 Blood Pressure 102/65 103/63 Pulse Oximetry 96 96 Oxygen Delivery Method Room Air Room Air BMI result Body Mass Index 22.2 Labs 06/05/23 22:53 06/07/23 08:24 Labs: Laboratory Results - last 48 hr 06/06/23 06/07/23 11:10 08:24 Sodium 141 Potassium 4.2 Chloride 106 Carbon Dioxide 28 Anion Gap 11 L BUN 14 Creatinine 0.95 Estim Creat Clear Calc 112.7 Estimated GFR > 60 Fasting Glucose 102 H Estimat Average Glucose 97 Hemoglobin A1c % 5.0 Calcium 10.0 D Total Bilirubin 0.5 AST 17 ALT 8 Alkaline Phosphatase 57 Total Protein 6.8 Albumin 4.5 Triglycerides 112 Cholesterol 139 LDL Cholesterol, Calc 80 HDL Cholesterol 37 L Vitamin B12 348 Folate 6.6 TSH 1.05 Free T4 0.88 COVID-19 (NAY) Negative COVID-19 Clin Com See Note Medications Medications Current Medications Acetaminophen (Acetaminophen 325 Mg Tablet) 650 mg PO Q6H PRN PRN Reason: Headache/Pain Mild Scale (1-3) Last Admin: 06/07/23 08:24 Dose: 650 mg Al Hydroxide/Mg Hydroxide (Magnesium Hydrox/Alum Hydrox 30 Ml Oral.Susp) 30 ml PO Q6H PRN PRN Reason: Heartburn/Nausea Albuterol Sulfate (Albuterol Sulfate 90 Mcg 8 Gm Inhaler) 2 puff INHALE Q4H PRN PRN Reason: wheezing Chlorpromazine HCl (Chlorpromazine Hcl 25 Mg Tablet) 50 mg PO TID [facility] Last Admin: 06/08/23 08:04 Dose: 50 mg Chlorpromazine HCl (Chlorpromazine Hcl 25 Mg Tablet) 50 mg PO QID PRN PRN Reason: anxiety/agitation Gabapentin (Gabapentin 300 Mg Capsule) 300 mg PO TID [facility] Last Admin: 06/08/23 08:04 Dose: 300 mg Hydroxyzine HCl (Hydroxyzine Hcl 25 Mg Tablet) 25 mg PO Q6H PRN PRN Reason: Anxiety Last Admin: 06/07/23 12:09 Dose: 25 mg Lorazepam (Lorazepam 1 Mg Tablet) 1 mg PO Q2H PRN PRN Reason: CIWA 6-10 Last Admin: 06/08/23 04:58 Dose: 1 mg Lorazepam (Lorazepam 1 Mg Tablet) 2 mg PO Q2H PRN PRN Reason: CIWA 11 and above Magnesium Hydroxide (Milk Of Magnesia 30 Ml Oral.Susp) 30 ml PO DAILY PRN PRN Reason: Constipation Methadone HCl (Methadone Hcl 20 Mg/2 Ml Oral.Conc) 30 mg PO DAILY [facility] Last Admin: 06/08/23 08:03 Dose: 30 mg Nicotine Polacrilex (Nicotine Polacrilex 2 Mg Gum) 4 mg BUCCAL Q2H PRN PRN Reason: Nicotine Cravings Last Admin: 06/08/23 07:23 Dose: 4 mg Prazosin HCl (Prazosin Hcl 1 Mg Capsule) 1 mg PO BEDTIME GENARO; Protocol Last Admin: 06/07/23 22:03 Dose: 1 mg Trazodone HCl (Trazodone Hcl 50 Mg Tablet) 50 mg PO BEDTIME [facility] Last Admin: 06/07/23 22:03 Dose: 50 mg Trazodone HCl (Trazodone Hcl 50 Mg Tablet) 50 mg PO BEDTIME MRX1 PRN PRN Reason: Insomnia Last Admin: 06/07/23 00:15 Dose: 50 mg Allergies Allergies Allergy/AdvReac Type Severity Reaction Status Date / Time mayonnaise [MAYONNAISE] Allergy Intermediate THROAT AND Verified 05/08/23 21:49 TONGUE ITCH quetiapine [From SEROQUEL] Allergy Intermediate DYSTONIA Verified 05/08/23 21:49 cat dander [CATS] Allergy Unknown WATERY Verified 05/08/23 21:49 EYES, SNEEZING dog dander [DOG] Allergy Unknown UNKNOWN Verified 05/08/23 21:49 paroxetine [From PAXIL] Allergy Unknown FLU LIKE Verified 05/08/23 21:49 SYMPTOMS penicillin V Allergy Unknown Unknown Verified 05/08/23 21:49 Penicillins [PENICILLINS] Allergy Unknown SWELLING Verified 05/08/23 21:49 SEAFOOD Allergy Severe DIFFICULTY Uncoded 05/12/21 00:16 BREATHING Assessment & Plan Assessment & Plan (1) MDD (major depressive disorder), recurrent episode: Status: Acute Code(s): F33.9 - Major depressive disorder, recurrent, unspecified (2) PTSD (post-traumatic stress disorder): Status: Acute Code(s): F43.10 - Post-traumatic stress disorder, unspecified (3) Opioid use disorder, moderate, dependence: Status: Acute Code(s): F11.20 - Opioid dependence, uncomplicated (4) Cocaine abuse: Status: Acute Code(s): F14.10 - Cocaine abuse, uncomplicated (5) Benzodiazepine abuse: Status: Acute Code(s): F13.10 - Sedative, hypnotic or anxiolytic abuse, uncomplicated Plan Patient is a 37 year old male with hx of MDD, PTSD, and polysubstance use d/o with multiple inpatient psychiatric admissions who self presented to ER with suicidal ideation without a plan secondary to increased depression, anxiety and requesting detox. Plan: CV 15 minute safety checks Continue home medications Detox Referral to outpatient therapist and prescriber Encourage substance abuse program Time Spent With Patient Time: Total time managing care of this patient today ____ minutes.
--- NOTE | 2023-06-08 13:32 | PM.PSYDC ---
DS: Providers Provider Date of Service: 06/08/23 Date of admission: 06/06/23 14:13 Date of discharge: 06/08/23 Primary care physician: Molly Alejandro MD Admitting clinician: Chelsey Aguayo Attending physician on admission: Julian Anaya Attending physician on discharge: Julian Anaya Discharging clinician: Chelsey Aguayo DS: Diagnosis Discharge Diagnosis (1) MDD (major depressive disorder), recurrent episode: Status: Acute (2) PTSD (post-traumatic stress disorder): Status: Acute (3) Opioid use disorder, moderate, dependence: Status: Acute (4) Cocaine abuse: Status: Acute (5) Benzodiazepine abuse: Status: Acute DS: Medications Discharge Medications Home Medications: Home Medications Medication Instructions Recorded Confirmed albuterol sulfate 90 mcg/actuation 2 puff inhalation Q4-6H PRN 06/05/23 06/05/23 aerosol inhaler (Ventolin HFA) wheezing trazodone 50 mg tablet 50 mg PO BEDTIME 06/05/23 06/05/23 Mental Status Exam Mental Status Exam Narrative: Pt is alert and oriented; behavior is cooperative and calm; dressed in casual attire; mood is described as good ; eye contact appropriate; Speech is normal rate, volume and prosody and not pressured; no psychomotor agitation/retardation present; thought process is organized and goal directed; Thought content is on tx; otherwise pertinent to relevant topics and without any delusional content, paranoid ideations or grandiosity; denies SI/HI. There is no evidence of perceptual disturbance. Patients insight and judgment are fair. Data Data Completed and Pending Completed studies during hospitalization [Text1]: 06/05/23 06/05/23 06/06/23 22:53 23:03 11:10 WBC 8.0 RBC 4.69 Hgb 13.8 L Hct 41.4 L MCV 88.3 MCH 29.4 MCHC 33.3 RDW 12.0 Plt Count 147 L D MPV 10.5 Immature Gran % (Auto) 0.1 Neut % (Auto) 69.8 Lymph % (Auto) 22.1 [place] % (Auto) 5.6 Eos % (Auto) 2.0 Baso % (Auto) 0.4 Lymph # (Auto) 1.8 [place] # (Auto) 0.5 Eos # (Auto) 0.2 Baso # (Auto) 0.0 Abs Immat Gran (auto) 0.01 Absolute Neuts (auto) 5.6 Absolute Nucleated RBC 0.000 Nucleated RBC % (auto) 0.0 Sodium 145 Potassium 3.9 Chloride 109 H Carbon Dioxide 25 Anion Gap 15 BUN 13 Creatinine 1.24 Estim Creat Clear Calc 86.3 Estimated GFR > 60 Random Glucose 97 Fasting Glucose Estimat Average Glucose Hemoglobin A1c % Calcium 9.2 D Total Bilirubin 0.5 AST 18 ALT 9 Alkaline Phosphatase 54 Total Protein 7.1 Albumin 4.6 Triglycerides Cholesterol LDL Cholesterol, Calc HDL Cholesterol Vitamin B12 Folate TSH Free T4 Urine Color Yellow Urine Appearance Clear Urine pH 6.5 Ur Specific [place] >= 1.030 H Urine Protein Negative Urine Glucose (UA) Negative Urine Ketones Negative Urine Blood Negative Urine Nitrite Negative Ur Leukocyte Esterase Negative Urine Opiates Screen POSITIVE H Urine Fentanyl Screen POSITIVE H Ur Barbiturates Screen Not Detected Ur Phencyclidine Scrn Not Detected Ur Amphetamines Screen Not Detected U Benzodiazepines Scrn POSITIVE H Urine Cocaine Screen POSITIVE H U Marijuana (THC) Screen POSITIVE H Ethyl Alcohol < 10 COVID-19 (NAY) Negative COVID-19 Clin Com See Note 06/07/23 08:24 WBC RBC Hgb Hct MCV MCH MCHC RDW Plt Count MPV Immature Gran % (Auto) Neut % (Auto) Lymph % (Auto) [place] % (Auto) Eos % (Auto) Baso % (Auto) Lymph # (Auto) [place] # (Auto) Eos # (Auto) Baso # (Auto) Abs Immat Gran (auto) Absolute Neuts (auto) Absolute Nucleated RBC Nucleated RBC % (auto) Sodium 141 Potassium 4.2 Chloride 106 Carbon Dioxide 28 Anion Gap 11 L BUN 14 Creatinine 0.95 Estim Creat Clear Calc 112.7 Estimated GFR > 60 Random Glucose Fasting Glucose 102 H Estimat Average Glucose 97 Hemoglobin A1c % 5.0 Calcium 10.0 D Total Bilirubin 0.5 AST 17 ALT 8 Alkaline Phosphatase 57 Total Protein 6.8 Albumin 4.5 Triglycerides 112 Cholesterol 139 LDL Cholesterol, Calc 80 HDL Cholesterol 37 L Vitamin B12 348 Folate 6.6 TSH 1.05 Free T4 0.88 Urine Color Urine Appearance Urine pH Ur Specific [place] Urine Protein Urine Glucose (UA) Urine Ketones Urine Blood Urine Nitrite Ur Leukocyte Esterase Urine Opiates Screen Urine Fentanyl Screen Ur Barbiturates Screen Ur Phencyclidine Scrn Ur Amphetamines Screen U Benzodiazepines Scrn Urine Cocaine Screen U Marijuana (THC) Screen Ethyl Alcohol COVID-19 (NAY) COVID-19 Clin Com DS: Summary Hospital Course Hospital Course: Patient is a 37 year old male with hx of MDD, PTSD, and polysubstance use d/o with multiple inpatient psychiatric admissions who self presented to ER with suicidal ideation without a plan secondary to increased depression, anxiety and requesting detox. Per crisis report, pt has a hx of inpatient hospitalizations, substance use treatment, medication non-adherence, substance use and suicide attempts. He reported AH, tell him to hurt himself and others; plan to OD on a combination of heroin and pills. During admission assessment, patient presents calm and cooperative. He reports feeling depressed and anxious ; pt stated, I feel like I'm the lowest I've been lately. My mom is in the ICU. I stopped taking my meds because I didn't have a prescriber. I just want help to detox . Patient reports he has been using fentanyl, heroin and klonopin daily. He reports not sleeping well and having nightmares; pt stated, I get a lot of flashbacks of things that I've seen . Patient would like referrals to outpatient prescriber and therapist; he refused referral to substance abuse program. Pt stated, if I get clean here, I'll just stay clean because I really want it this time. I'll just go to NA meetings . Denies SI/HI/VH/AH at this time. During hospital stay, patient reports feeling better today. Patient stated, I'm feeling better than when I came in; I'm not angry. I would like to go back home. I don't want any referrals to programs and I don't want any scripts sent. I'm going to follow up with [facility] because it's right next to my house . Patient denies SI/HI/VH/AH. He is hopeful regarding maintaining sobriety with going to NA meetings and following up with outpatient clinic. He reports he will return to hospital, call 911 or crisis if in need of assistance. Time spent discussing smoking cessation with patient: 3 to 10 minutes Status at Discharge Cognitive/behavioral status at discharge: Patient was interviewed prior to discharge and found to be fully oriented and without any SI or HI. Patient has insight and demonstrates good judgment in terms of wanting to pursue treatment. Patient is not in imminent risk of harm to self or others and has a safety plan that includes presenting to the closest ER or calling 911 if feeling unsafe. Patient has been observed closely by nursing and unit staff throughout admission; patient has not engaged in any behaviors that suggest dangerousness to self or others and has demonstrated appropriate behaviors and impulse control. Functional status at discharge: independent ambulation Overall status at discharge: patient is back to baseline Time Spent with Patient Time attestation: Total time managing care of this patient today _30___ minutes. Time spent: Less than 30 minutes Discharge Plan Discharge Anticipated Discharge Date/Time: 06/08/23 13:27 Patient Disposition: Home, Self-Care Discharge Diagnosis: MDD, PTSD, Cocaine abuse, Benzodiazepine abuse, opioid abuse Referrals: Molly Ford MD [Primary Care Provider] - 1 Week Discharge Medications: Continued albuterol sulfate [Ventolin HFA] 90 mcg/actuation HFA aerosol inhaler 2 puff inhalation Q4-6H PRN (Reason: wheezing) methadone 10 mg/5 mL Solution 30 mg PO DAILY Discontinued trazodone 50 mg tablet 50 mg PO BEDTIME Discharge Orders: Discharge Order (Routine); Ordered 06/08/23 Ordered By: Chelsey Aguayo Diet: Regular diet Activity on Discharge: As tolerated Stand Alone Forms: Patient Portal Discharge page, Community Support Care Plan Goals: Maintain mood and safe behaviors Take medications as prescribed Continue to pursue sobriety Practice coping skills Continue with outpatient providers and reach out to them as needed Health Concerns: Mood stability and behaviors Sobriety Plan of Treatment: Follow up with your PCP, psychiatric provider and other outpatient providers regarding above concerns Take medications as prescribed Assessment: Patient was interviewed prior to discharge and found to be fully oriented and without any SI or HI. Patient has insight and demonstrates good judgment in terms of wanting to pursue treatment. Patient is not in imminent risk of harm to self or others and has a safety plan that includes presenting to the closest ER or calling 911 if feeling unsafe. Patient has been observed closely by nursing and unit staff throughout admission; patient has not engaged in any behaviors that suggest dangerousness to self or others and has demonstrated appropriate behaviors and impulse control.
== END 2023-06-08 13:55 | disposition home or self-care (01) | DRG 751 ==
LOC: HO.ED 06-06 01:40 → HO.PADLT16 06-06 14:26
PROVIDERS: Emergency Medicine; Admitting Provider Psychiatry & Neurology Psychiatry; Emergency Provider Emergency Medicine; PCP Internal Medicine; Responsible Provider Registered Nurse; Visit Provider Psychiatry & Neurology Psychiatry
DX: F33.9 Major depressive disorder, recurrent, unspecified (principal); R45.851 Suicidal ideations; Z91.148 Patient's other noncompliance with medication regimen for other reason; F14.10 Cocaine abuse, uncomplicated; F13.10 Sedative, hypnotic or anxiolytic abuse, uncomplicated; F11.20 Opioid dependence, uncomplicated; F17.210 Nicotine dependence, cigarettes, uncomplicated; Z71.6 Tobacco abuse counseling; F43.10 Post-traumatic stress disorder, unspecified; Z20.822 Contact with and (suspected) exposure to COVID-19
CPT/HCPCS: 36415; 80053; 80061; 80307; 81003; 82607; 82746; 83036; 84439; 84443; 85025; 87635; 93005; 99285; J2060; S9485

== ENCOUNTER → 2023-06-06 14:13 | Outpatient (BNV) | payer OTHER, SELFPAY | PROVIDERS: Admitting Provider Psychiatry & Neurology Psychiatry; Emergency Provider Emergency Medicine; PCP Internal Medicine; Responsible Provider Registered Nurse; Visit Provider Psychiatry & Neurology Psychiatry | DX: F33.2 Major depressive disorder, recurrent severe without psychotic features (principal); F14.10 Cocaine abuse, uncomplicated; F11.20 Opioid dependence, uncomplicated; F43.11 Post-traumatic stress disorder, acute; F13.10 Sedative, hypnotic or anxiolytic abuse, uncomplicated | CPT/HCPCS: 99231; 99233 ==

== ENCOUNTER 2023-07-04 23:16 | Inpatient (IN) | payer MEDICAID, OTHER, SELFPAY ==
[2023-07-04 23:18] VITALS: BP 104/64; PULSE 81; RESP 16; TEMP 36.2; O2SAT 95; BMI 23.0
[2023-07-05 00:02] LABS: MANUAL DIFF FLAG NO
--- NOTE | 2023-07-05 00:05 | ED_ITS ---
HPI - Psych General Chief Complaint: Psychiatric Symptoms Stated Complaint: depression, SI Time Seen by Provider: 07/04/23 23:44 Source: patient Mode of arrival: ambulatory Limitations: no limitations History of Present Illness HPI Narrative: Patient with history of depression substance abuse been depressed for some time has history of overdosing in the past with similar intention at this time denies any homicidal ideation no hallucination or delusion uses heroin but that is not a problem patient does have psychiatrist and therapist but has not seen them for a while on any medication Related Data Home Medications Medication Instructions Recorded Confirmed albuterol sulfate 90 mcg/actuation 2 puff inhalation Q4-6H PRN 06/05/23 07/04/23 aerosol inhaler (Ventolin HFA) wheezing trazodone 50 mg tablet 50 mg PO BEDTIME 07/04/23 07/04/23 Allergies Allergy/AdvReac Type Severity Reaction Status Date / Time mayonnaise [MAYONNAISE] Allergy Intermediate THROAT AND Verified 05/08/23 21:49 TONGUE ITCH quetiapine [From SEROQUEL] Allergy Intermediate DYSTONIA Verified 05/08/23 21:49 cat dander [CATS] Allergy Unknown WATERY Verified 05/08/23 21:49 EYES, SNEEZING dog dander [DOG] Allergy Unknown UNKNOWN Verified 05/08/23 21:49 paroxetine [From PAXIL] Allergy Unknown FLU LIKE Verified 05/08/23 21:49 SYMPTOMS penicillin V Allergy Unknown Unknown Verified 05/08/23 21:49 Penicillins [PENICILLINS] Allergy Unknown SWELLING Verified 05/08/23 21:49 SEAFOOD Allergy Severe DIFFICULTY Uncoded 05/12/21 00:16 BREATHING Review of Systems 2 Review of Systems: Yes all other systems are reviewed and are negative PMFSH Past Medical History Medical History Polysubstance abuse Knee cartilage, torn, right ACL (anterior cruciate ligament) rupture Substance abuse withdrawal Asthma Hepatitis C Hepatitis C antibody positive in blood Social History Social History Household Members: Other Household Members Other:: Brother Housing: Apartment Do you presently have visiting nurse or other home services: No Unable to assess alcohol history related to: Unknown Alcohol intake: former Patient Tobacco Use Status: Current everyday Tobacco user Tobacco use type: Cigarette Cigarette Packs Per Day: 10 Cigarettes Per Day: 200.0 Years Smoked: 15 e-Cigarette/Vaping Use: Never Used Second Hand Smoke Exposure: Yes Substance Use Type: Heroin, Marijuana, Other and Prescription Drugs Advance Directives: No Advance Directives Information Provided: No Healthcare Proxy: No Guardian: No service: No Sexual orientation: Straight/Heterosexual Physical Exam 2 Vital Signs: Vital Signs: Last Vital Signs Temp 97.2 F 07/04/23 23:18 Pulse 81 07/04/23 23:18 Resp 16 07/04/23 23:18 BP 104/64 07/04/23 23:18 Pulse Ox 95 07/04/23 23:18 O2 Del Method Room Air 07/04/23 23:18 BMI result Body Mass Index 23.0 Appearance: Alert. Oriented X3. No acute distress. Eyes: PERRLA, No Nystagmus ENT: Pharynx normal. Oral Mucosa moist Neck: Normal inspection. Neck supple. CVS: Normal heart rate and rhythm. Pulses normal. Respiratory: No respiratory distress. Equal air entry bilateral, no wheezing/rales/rhonchi Abdomen: Soft and nontender. Bowel sounds are present, no mass palpable, no CVA tenderness Skin: Skin warm and dry. Normal skin color. Normal skin turgor. Extremities: No lower extremity edema. No calf tenderness psych: Look depressed with current suicidal ideation without any plan Neuro: Oriented X 3. No motor deficit. No sensory deficit.No cerebellar signs , cranial nerves II-XII intact Medical Decision Making Medical Decision Making [facility] Narrative: Patient seen by care team plan for inpatient admission for depression with suicidal ideation Differential Diagnosis Differential Diagnoses: The differential diagnosis associated with the presentation includes Bipolar disorder/depression/SI/substance abuse Lab Data [facility] Lab Attestation statement: I reviewed the patient's lab results. 07/04/23 23:57 07/04/23 23:56 Labs: Lab Results 07/04/23 07/04/23 07/04/23 Range/Units 23:55 23:56 23:57 WBC 8.4 (4.8-10.8) X10*3/uL RBC 5.13 (4.60-5.80) X10*6/uL Hgb 15.0 (14.0-18.0) g/dl Hct 45.0 (42.0-52.0) % MCV 87.7 (80.0-98.0) fL MCH 29.2 (27.0-33.0) pg MCHC 33.3 (31.0-36.0) g/dl RDW 12.1 (11.0-16.0) % Plt Count 152 L (160-400) X10*3/uL MPV 11.1 (9.4-12.4) fL Immature Gran % (Auto) 0.1 (0.0-0.4) % Neut % (Auto) 79.6 H (45-73) % Lymph % (Auto) 11.7 L (20-40) % [place] % (Auto) 6.4 (2-11) % Eos % (Auto) 1.8 (0-4) % Baso % (Auto) 0.4 (0-2) % Lymph # (Auto) 1.0 L (1.2-4.9) X10*3/uL [place] # (Auto) 0.5 (0.1-1.2) X10*3/uL Eos # (Auto) 0.2 (0.0-0.4) X10*3/uL Baso # (Auto) 0.0 (0.0-0.2) X10*3/uL Abs Immat Gran (auto) 0.01 (0.00-0.03) X10*3/uL Absolute Neuts (auto) 6.7 (2.0-8.3) x10*3/uL Absolute Nucleated RBC 0.000 (0.0-0.012) X10*3/uL Nucleated RBC % (auto) 0.0 (0.0-0.2) /100WBC Sodium 143 (135-145) mmol/L Potassium 3.6 (3.3-5.1) mmol/L Chloride 106 (96-108) mmol/L Carbon Dioxide 27 (22-29) mmol/L Anion Gap 14 (12-20) BUN 10 (9-16) mg/dL Creatinine 1.01 (0.5-1.4) mg/dL Estim Creat Clear Calc 101.7 Estimated GFR > 60 Random Glucose 98 (60-115) mg/dL Calcium 9.8 (8.4-10.2) mg/dL Total Bilirubin 0.6 (0.0-1.0) mg/dL AST 20 (5-37) U/L ALT 11 (0-40) U/L Alkaline Phosphatase 52 (39-117) U/L Total Protein 7.1 (6.5-8.0) g/dL Albumin 4.7 (3.5-5.0) g/dL Urine Color Dark Yellow Urine Appearance Clear Urine pH 5.5 (5.0-9.0) Ur Specific [place] >= 1.030 H (1.005-1.025) Urine Protein Trace (Neg-Trace) mg/dL Urine Glucose (UA) Negative (Negative) mg/dL Urine Ketones Trace (Negative) mg/dL Urine Blood Negative (Negative) Urine Nitrite Negative (Negative) Ur Leukocyte Esterase Small (1+) H (Negative) Urine RBC 0-2 (0-2) /HPF Urine WBC 11-20 H (0-5) /HPF Ur Squamous Epith Cells 0-2 (0-2) /HPF Urine Bacteria None Seen (None Seen) Hyaline Casts 0-2 (0-2) /LPF Urine Opiates Screen POSITIVE H (Not Detect) Urine Fentanyl Screen POSITIVE H (Not Detect) Ur Barbiturates Screen Not Detected (Not Detect) Ur Phencyclidine Scrn Not Detected (Not Detect) Ur Amphetamines Screen Not Detected (Not Detect) U Benzodiazepines Scrn POSITIVE H (Not Detect) Urine Cocaine Screen POSITIVE H (Not Detect) U Marijuana (THC) Screen POSITIVE H (Not Detect) Ethyl Alcohol < 10 mg/dL Discharge Plan Discharge Clinical Impression: Depression, Suicidal ideations, Polysubstance abuse Patient Disposition: Still a Patient Prescriptions: No Action albuterol sulfate [Ventolin HFA] 90 mcg/actuation HFA aerosol inhaler 2 puff inhalation Q4-6H PRN (Reason: wheezing) trazodone 50 mg tablet 50 mg PO BEDTIME Interventions: [place]-Suicide Risk Severity Scale Last Done: 07/05/23 02:16
[2023-07-05 00:06] LABS: Appearance Urine Clear; Color Urine Dark Yellow; Glucose Urine UA Negative (Negative); Leukocyte Esterase Urine Small (1+) (Negative); Nitrite Urine Negative (Negative); PH 5.5 (5.0-9.0); Specific Gravity - Urine >= 1.030 (1.005-1.025); UMIC TRIGGER UA YES; Urine Blood Negative (Negative); Urine Ketones Trace mg/dL (Negative); Urine Protein Trace mg/dL (Neg-Trace)
[2023-07-05 00:10] LABS: Bacteria Urine None Seen (None Seen); Hyaline Casts Urine 0-2 /LPF (0-2); RBC Urine 0-2 /HPF (0-2); Squamous Epithelial Cell Urine 0-2 /HPF (0-2)
[2023-07-05 00:11] LABS: Basophils Percent Auto 0.4 % (0-2); Eosinophils Absolute Auto 0.2 X10*3/uL (0.0-0.4); Eosinophils Percent Auto 1.8 % (0-4); Imm Gran Abs Auto 0.01 X10*3/uL (0.00-0.03); Imm Gran Pct Auto 0.1 % (0.0-0.4); Lymphocytes Percent Auto 11.7 % (20-40); Mean Corpuscular HGB Conc 33.3 g/dl (31.0-36.0); Mean Corpuscular Hemoglobin 29.2 pg (27.0-33.0); Mean Corpuscular Volume 87.7 fL (80.0-98.0); Mean Platelet Volume 11.1 fL (9.4-12.4); Monocytes Absolute Auto 0.5 X10*3/uL (0.1-1.2); Monocytes Percent Auto 6.4 % (2-11); Neutrophils Absolute Auto 6.7 x10*3/uL (2.0-8.3); Neutrophils Percent Auto 79.6 % (45-73); Platelet Count 152 X10*3/uL (160-400); Red Blood Count 5.13 X10*6/uL (4.60-5.80); Red Cell Distribution Width 12.1 % (11.0-16.0); White Blood Count 8.4 X10*3/uL (4.8-10.8)
[2023-07-05 00:14] LABS: Amphetamine Screen Urine Not Detected (Not Detect); Barbiturates, Urine Not Detected (Not Detect); Benzodiazepines Screen Urine POSITIVE (Not Detect); Cannabinoid Screen Urine POSITIVE (Not Detect); Cocaine Screen Urine POSITIVE (Not Detect); Fentanyl, urine POSITIVE (Not Detect); Opiate Screen Urine POSITIVE (Not Detect); Phencyclidine Screen Urine Not Detected (Not Detect)
[2023-07-05 00:27] LABS: Alanine Aminotransferase 11 U/L (0-40); Albumin Level 4.7 g/dL (3.5-5.0); Alkaline Phosphatase 52 U/L (39-117); Anion Gap 14 (12-20); Aspartate Amino Transferase 20 U/L (5-37); Bilirubin Total 0.6 mg/dL (0.0-1.0); Blood Urea Nitrogen 10 mg/dL (9-16); Calcium 9.8 mg/dL (8.4-10.2); Carbon Dioxide 27 mmol/L (22-29); Chloride 106 mmol/L (96-108); Creatinine Clr Calc Pharmacy 101.7; Estimated Glomerular Filt Rate > 60; Ethanol < 10 mg/dL; Glucose Random 98 mg/dL (60-115); Potassium 3.6 mmol/L (3.3-5.1); Sodium 143 mmol/L (135-145); Total Protein 7.1 g/dL (6.5-8.0)
--- NOTE | 2023-07-05 02:18 | PC.NURSE ---
Patient is currently in bed resting, no distress observed/reported, patient engaged well with care team, disposition is section 12 inpatient bed search, med rec completed/pending provider's approval, patient stopped taking his methadone using street drugs consistent with tox screen, VSS, will continue to monitor.
--- NOTE | 2023-07-05 07:34 | ECG_ITS ---
Test Reason : check prolong QT Blood Pressure : / mmHG Vent. Rate : 049 BPM Atrial Rate : 049 BPM P-R Int : 206 ms QRS Dur : 088 ms QT Int : 492 ms P-R-T Axes : 073 071 066 degrees QTc Int : 444 ms Sinus bradycardia with sinus arrhythmia Otherwise normal ECG When compared with ECG of 06-JUN-2023 11:18, No significant change was found Referred By: Ronald Rodriguez Electronically Signed By:JENNIFER REGALADO MD
[2023-07-05 10:01] LABS: COVID-19 Test Negative (Negative); IDNOW Serial# BCCEAD1C
[2023-07-05 12:34] VITALS: BP 96/62; PULSE 60; RESP 18; O2SAT 98
[2023-07-05 12:35] VITALS: PULSE 60
--- NOTE | 2023-07-05 13:10 | MHC.RECOVRN ---
Met with pt in 4 after pts RN reported pt experiencing withdrawal symptoms. Pt laying in bed, awake, alert, easily engages in conversation. Pt reports using heroin/fentanyl, 1.5 bundles daily, IN/INH, x 1 year. Last use 5 pm 07/04. Pt also reports clonazepam use, 5 mg daily, PO, last use 07/03. Pt reports upset stomach, body aches, anxiety, chills, and restlessness. Pt concerned regarding benzodiazepine withdrawal seizure, reports one 6 years ago. Pt interested in utilizing methadone taper to address opioid withdrawal symptoms. Pt denies other questions or concerns at this time. ED provider aware.
[2023-07-05] MEDS: clonazePAM 1 MG TABLET 2 MG PO (14:39)
[2023-07-05] MEDS: methADONE HCl 20 MG/2 ML ORAL.CONC 30 MG PO (14:39)
[2023-07-05 16:20] VITALS: PULSE 63
[2023-07-05 17:17] VITALS: BP 101/63; PULSE 63; RESP 18; TEMP 36.5; O2SAT 94
[2023-07-05 17:18] VITALS: BMI 21.1
--- NOTE | 2023-07-05 17:46 | PC.ADMIT ---
Patient was arrived to M3 at 16:15 on a CV from the [facility] Pod for depression with SI and poly substance use. Patient was endorsing command auditory hallucinations in the Pod, stated the voices were telling him to hurt himself and also endorsed random impulses to hurt others. Ridge reported intentionally overdosing 3 days ago on pills in an attempt to end his life. Upon admission to the unit, skin check completed with another nurse, along with vitals and admission assessment. Patient denied any physical complains but reported malaise, also denied any current SI/HI/AVH, but endorsed depression (8/10) and anxiety (5/10). When asked why he was admitted, he stated I just want to get help, I need to be put on some psych medications and I really need a psychiatrist . He also stated My addictions have been really affecting my thoughts and mood . Ridge also reported having trouble sleeping at night r/t poly substance use keeping him up, and states I've gone up to 2 days in a row without sleeping at all . Patient reported being worried about being discharged too early, as he stated I'm scared that I might hurt myself or others if I am discharged too soon . Ridge states he feels safe on the unit and feels comfortable seeking out staff if having any thoughts of SI/HI or AVH.
[2023-07-05 20:37] VITALS: BP 111/51; PULSE 59; TEMP 36.8; O2SAT 94
[2023-07-05] MEDS: traZODone HCL 50 MG TABLET PO (21:12)
[2023-07-05 23:40] VITALS: PULSE 62
[2023-07-06] MEDS: LORazepam 1 MG TABLET PO (07:06)
[2023-07-06 07:17] LABS: Estimated Average Glucose 94 mg/dL; Hemoglobin A1c % 4.9 % (<6.0)
[2023-07-06 07:30] LABS: Alanine Aminotransferase 14 U/L (0-40); Alkaline Phosphatase 45 U/L (39-117); Anion Gap 10 (12-20); Aspartate Amino Transferase 15 U/L (5-37); Bilirubin Total 0.5 mg/dL (0.0-1.0); Blood Urea Nitrogen 11 mg/dL (9-16); Calcium 9.9 mg/dL (8.4-10.2); Carbon Dioxide 29 mmol/L (22-29); Chloride 109 mmol/L (96-108); Cholesterol 111 mg/dL (<200); Creatinine Clr Calc Pharmacy 102.5; Estimated Glomerular Filt Rate > 60; Glucose Fasting 89 mg/dL (60-99); HDL Cholesterol 35 mg/dL (>40); LDL Cholesterol Calculated 62 mg/dL (<100); Potassium 4.4 mmol/L (3.3-5.1); Sodium 144 mmol/L (135-145); Total Protein 6.1 g/dL (6.5-8.0); Triglycerides 73 mg/dL (<150)
[2023-07-06 07:46] LABS: Thyroid Stimulating Hormone 0.54 uIU/mL (0.32-4.0)
[2023-07-06 07:59] VITALS: BP 110/58; PULSE 50; RESP 16; TEMP 36.3; O2SAT 95
[2023-07-06 08:23] VITALS: BMI 21.2
[2023-07-06] MEDS: methADONE HCl 20 MG/2 ML ORAL.CONC 30 MG PO (09:10)
--- NOTE | 2023-07-06 09:25 | HO.PSYADMNOT ---
HPI Date of Service: 07/06/23 Chief Complaint: SI Sources of Information: patient interviewed, chart reviewed and crisis/core team assessment reviewed HPI Subjective Notes: Erickson Warning and Conditional Voluntary Narrative: Patient is a 38 year old male with hx of MDD, PTSD, polysubstance use who presented to ER d/t suicidal ideation with plan to overdose secondary to command auditory hallucinations telling him to kill himself . Per crisis report, pt reports intentional overdose on sleeping pulls three days ago. He stated, I can't go on like this, I am going to end up killing myself if I don't get help . He reported sleeping for 30 hours after that. Reported impulses to randomly assault other people . UTOX positive for fentanyl, opiates, cocaine, benzodiazepines and cannabis. During admission assessment, pt presents guarded and irritable. Pt stated, I don't want to be here. I should have went to a detox. I spoke to my brother and he is going to take me to court to section 35 me because that's what I need . Patient reports he is feeling fine ; pt stated, I'm not a danger to myself or anyone else. I don't want to . I don't want to go use. I came to the hospital to help me stop using but I should of went to a detox instead . Pt reports he has been using 5mg of klonopin daily and snorting fentanyl daily. Pt denies SI/HI/VH/AH. He reports he does not have outpatient providers and does not follow up with appointments that are set up for him from the hospital; when asked why this is, pt stated, I get distracted doing other things. I don't know why I don't follow up . Patient became upset when informed he would not be getting discharged today. Pt began throwing items around unit, knocking over unit trash, threatening staff that he is going to do something to get kicked out of here . When T/W attempted to speak to patient again, pt stated, I know there are rules here and I'm going to break them so I can get kicked out. I don't want to fucking be here. I feel fine! . Addiction consult was placed pt stated he did not want to meet with addiction team. An additional 15mg of methodone was ordered; pt refused. Case reviewed with . Past Psychiatric History: Inpt: h/o 5 psych hosps. M3 02/2021 (detoxing from benzo and opioids) h/o 1 SA, via overdose. OP: pt reports recently being connected with [facility] in [place]. witness to two of his friends being murdered h/o superficial cutting. Medical Evaluation Reviewed: Yes [facility] Medical History Polysubstance abuse Knee cartilage, torn, right ACL (anterior cruciate ligament) rupture Substance abuse withdrawal Asthma Hepatitis C Hepatitis C antibody positive in blood Family History: father and younger brother have addiction problems Social History: raised by mother, has two brothers, one older and one younger. Substance History: utox positive for opioids, cocaine, marijuana, benzodiazepines, fentanyl. Trauma History: witness to murder of two friends Diagnostics Vital Signs (24Hr): Vital Signs - 24 hr 07/05/23 12:34 07/05/23 17:17 07/05/23 20:37 Temperature 97.7 F 98.3 F Pulse Rate 60 63 59 Respiratory Rate 18 18 Blood Pressure 96/62 101/63 111/51 L Pulse Oximetry 98 94 94 Oxygen Delivery Method Room Air Room Air 07/06/23 07:59 Temperature 97.3 F Pulse Rate 50 Respiratory Rate 16 Blood Pressure 110/58 L Pulse Oximetry 95 Oxygen Delivery Method Room Air BMI result Body Mass Index 21.2 Labs 07/04/23 23:57 07/06/23 06:31 Labs: Laboratory Results - last 48 hr 07/04/23 07/04/23 07/04/23 23:55 23:56 23:57 WBC 8.4 RBC 5.13 Hgb 15.0 Hct 45.0 MCV 87.7 MCH 29.2 MCHC 33.3 RDW 12.1 Plt Count 152 L MPV 11.1 Immature Gran % (Auto) 0.1 Neut % (Auto) 79.6 H Lymph % (Auto) 11.7 L [place] % (Auto) 6.4 Eos % (Auto) 1.8 Baso % (Auto) 0.4 Lymph # (Auto) 1.0 L [place] # (Auto) 0.5 Eos # (Auto) 0.2 Baso # (Auto) 0.0 Abs Immat Gran (auto) 0.01 Absolute Neuts (auto) 6.7 Absolute Nucleated RBC 0.000 Nucleated RBC % (auto) 0.0 Sodium 143 Potassium 3.6 Chloride 106 Carbon Dioxide 27 Anion Gap 14 BUN 10 Creatinine 1.01 Estim Creat Clear Calc 101.7 Estimated GFR > 60 Random Glucose 98 Fasting Glucose Estimat Average Glucose Hemoglobin A1c % Calcium 9.8 Total Bilirubin 0.6 AST 20 ALT 11 Alkaline Phosphatase 52 Total Protein 7.1 Albumin 4.7 Triglycerides Cholesterol LDL Cholesterol, Calc HDL Cholesterol TSH Urine Color Dark Yellow Urine Appearance Clear Urine pH 5.5 Ur Specific [place] >= 1.030 H Urine Protein Trace Urine Glucose (UA) Negative Urine Ketones Trace Urine Blood Negative Urine Nitrite Negative Ur Leukocyte Esterase Small (1+) H Urine RBC 0-2 Urine WBC 11-20 H Ur Squamous Epith Cells 0-2 Urine Bacteria None Seen Hyaline Casts 0-2 Urine Opiates Screen POSITIVE H Urine Fentanyl Screen POSITIVE H Ur Barbiturates Screen Not Detected Ur Phencyclidine Scrn Not Detected Ur Amphetamines Screen Not Detected U Benzodiazepines Scrn POSITIVE H Urine Cocaine Screen POSITIVE H U Marijuana (THC) Screen POSITIVE H Ethyl Alcohol < 10 COVID-19 (NAY) COVID-19 Clin Com 07/05/23 07/06/23 09:33 06:31 WBC RBC Hgb Hct MCV MCH MCHC RDW Plt Count MPV Immature Gran % (Auto) Neut % (Auto) Lymph % (Auto) [place] % (Auto) Eos % (Auto) Baso % (Auto) Lymph # (Auto) [place] # (Auto) Eos # (Auto) Baso # (Auto) Abs Immat Gran (auto) Absolute Neuts (auto) Absolute Nucleated RBC Nucleated RBC % (auto) Sodium 144 Potassium 4.4 D Chloride 109 H Carbon Dioxide 29 Anion Gap 10 L BUN 11 Creatinine 0.92 Estim Creat Clear Calc 102.5 Estimated GFR > 60 Random Glucose Fasting Glucose 89 Estimat Average Glucose 94 Hemoglobin A1c % 4.9 Calcium 9.9 Total Bilirubin 0.5 AST 15 ALT 14 Alkaline Phosphatase 45 Total Protein 6.1 L Albumin 4.0 Triglycerides 73 Cholesterol 111 LDL Cholesterol, Calc 62 HDL Cholesterol 35 L TSH 0.54 Urine Color Urine Appearance Urine pH Ur Specific [place] Urine Protein Urine Glucose (UA) Urine Ketones Urine Blood Urine Nitrite Ur Leukocyte Esterase Urine RBC Urine WBC Ur Squamous Epith Cells Urine Bacteria Hyaline Casts Urine Opiates Screen Urine Fentanyl Screen Ur Barbiturates Screen Ur Phencyclidine Scrn Ur Amphetamines Screen U Benzodiazepines Scrn Urine Cocaine Screen U Marijuana (THC) Screen Ethyl Alcohol COVID-19 (NAY) Negative COVID-19 Clin Com See Note Meds/Allergies Meds Home Medications Medication Instructions Recorded Confirmed Type albuterol sulfate 90 mcg/actuation 2 puff inhalation Q4-6H PRN 06/05/23 07/04/23 History aerosol inhaler (Ventolin HFA) wheezing trazodone 50 mg tablet 50 mg PO BEDTIME 07/04/23 07/04/23 History Allergies Allergies Allergy/AdvReac Type Severity Reaction Status Date / Time mayonnaise [MAYONNAISE] Allergy Intermediate THROAT AND Verified 05/08/23 21:49 TONGUE ITCH quetiapine [From SEROQUEL] Allergy Intermediate DYSTONIA Verified 05/08/23 21:49 cat dander [CATS] Allergy Unknown WATERY Verified 05/08/23 21:49 EYES, SNEEZING dog dander [DOG] Allergy Unknown UNKNOWN Verified 05/08/23 21:49 paroxetine [From PAXIL] Allergy Unknown FLU LIKE Verified 05/08/23 21:49 SYMPTOMS penicillin V Allergy Unknown Unknown Verified 05/08/23 21:49 Penicillins [PENICILLINS] Allergy Unknown SWELLING Verified 05/08/23 21:49 SEAFOOD Allergy Severe DIFFICULTY Uncoded 05/12/21 00:16 BREATHING Mental Status Exam Mental Status Exam Narrative: Pt is alert and oriented; behavior is guarded and irritable; dressed in casual attire; mood is described as irritated ; eye contact appropriate; Speech is normal rate, volume and prosody and not pressured; no psychomotor agitation/retardation present; thought process is organized; Thought content is on discharge; otherwise pertinent to relevant topics and without any delusional content, paranoid ideations or grandiosity; denies SI/HI. There is no evidence of perceptual disturbance. Assessment & Plan Assessment & Plan (1) MDD (major depressive disorder), recurrent episode: Status: Acute Code(s): F33.9 - Major depressive disorder, recurrent, unspecified (2) PTSD (post-traumatic stress disorder): Status: Acute Code(s): F43.10 - Post-traumatic stress disorder, unspecified (3) Fentanyl use disorder, severe: Status: Acute Code(s): F11.20 - Opioid dependence, uncomplicated (4) Cocaine abuse: Status: Acute Code(s): F14.10 - Cocaine abuse, uncomplicated (5) Opioid use disorder, moderate, dependence: Status: Acute Code(s): F11.20 - Opioid dependence, uncomplicated (6) Moderate benzodiazepine use disorder: Status: Acute Code(s): F13.20 - Sedative, hypnotic or anxiolytic dependence, uncomplicated Plan Patient is a 38 year old male with hx of MDD, PTSD, polysubstance use who presented to ER d/t suicidal ideation with plan to overdose secondary to command auditory hallucinations telling him to kill himself . Plan: addiction medicine consult: was ordered additional methadone 15mg; pt refused. Start: methadone 30mg PO daily Clonidine 0.1mg PO BID Prozac 10mg PO daily Trazodone 100mg PO bedtime Klonopin 0.5mg PO TID Zyprexa 5mg PO q4hr PRN anxiety/agitation Klonopin 1mg PO once Patient educated on: diagnosis, medication risk/benefits, substance abuse and therapeutic strategies Informed Consent: understands and further education needed Reason for continued inpatient stay Substantial Risk for: med/psych decompensation Statement Statement: I have reviewed the history and physical and performed a pertinent examination on my patient. No changes have occurred unless specified. If the History and Physical was not performed prior to admission, the Hospitalist's service will be consulted for completing the admission physical. Time Spent With Patient Time: Total time managing care of this patient today _60___ minutes.
[2023-07-06 10:23] LABS: Vitamin B12 387 pg/mL (200-900)
[2023-07-06] MEDS: cloNIDine HCL 0.1 MG TABLET PO (10:59)
[2023-07-06] MEDS: clonazePAM 0.5 MG TABLET PO ×3 (10:59→23:30)
[2023-07-06] MEDS: FLUoxetine HCl 10 MG CAPSULE PO (10:59)
[2023-07-06] MEDS: clonazePAM 1 MG TABLET PO (12:29)
[2023-07-06] MEDS: QUEtiapine Fumarate 100 MG TABLET PO (12:29)
--- NOTE | 2023-07-06 14:10 | PC.NURSE ---
Unable to complete COWS assessment at this time. Patient uncooperative. Reports only symptoms are frustration and anger. Continues to state he wants discharge. I am going to break the rules to get kicked out of here .
[2023-07-06] MEDS: OLANZapine 5 MG TABLET PO ×2 (15:47→23:30)
--- NOTE | 2023-07-06 15:48 | PC.NURSE ---
Patient continues to make threats, states he is going to fight with security, it's not going to be pretty . Continues to request discharge. Accepted PRN Yahir. States he is going to break things off the candelario.
--- NOTE | 2023-07-06 15:53 | MHC.CLN ---
RE: CONSULT HT 70 WT 160# IBW 166#=/-10% PT IS 96% IBW RANGE INDICATES ADEQUATE WT FOR HT BMI 21.2 WNL PREVIOUS WT HX FOLLOWS: 67.04KG (07/06/23) 74.8KG (06/05/23) 10% SIGNIFICANT WT LOSS X 30 DAYS 74.8KG (12/09/22) 10% SIGNIFICANT WT LOSS X 6 MONTHS 72.6KG (06/16/22) 8% NONSIGNIFICANT WT LOSS X 1 YEAR PT'S UBW RANGE 70-74KG PT WITH ACTIVE POLY SUBSTANCE ABUSE AND INCREASES RISK FOR POOR PO AND WT LOSS LABS: UNREMARKABLE DIET RX: REGULAR-APPROPRIATE WILL ADD MAGIC CUP TID WITH MEALS TO INCREASE KCALS SUPP TO PROVIDE 810KCALS, 27G PROTEIN MONITOR PO INTAKE CLOSELY
--- NOTE | 2023-07-06 16:53 | PM.EVENT ---
Event Note Date of Service: 07/06/23 Event Note: Addiction consult placed for patient OUD and benzodizepine use disorder Chart reviewed and discussed with attending provider. Patient reportedly irritable and requesting to be discharged. Started on methadone 30mg while in ED This video games storywriter ordered additional 15mg methadone to address possible withdrawal sx contributing to irritability. Patient declined methadone dose. No additional follow up indicated, unless patient would like to remain on MOUD or expresses interest in Recovery supports. Time Spent With Patient Time: Total time managing care of this patient today ____ minutes.
[2023-07-06 23:30] VITALS: BP 82/50; PULSE 46; RESP 16; TEMP 36.3; O2SAT 96
[2023-07-06] MEDS: traZODone HCL 100 MG TABLET PO (23:30)
[2023-07-07] MEDS: hydrOXYzine HCL 25 MG TABLET PO (04:06)
[2023-07-07] MEDS: OLANZapine 5 MG TABLET PO (04:06)
[2023-07-07 06:00] VITALS: BP 93/55; PULSE 56; TEMP 36.1; O2SAT 97
[2023-07-07] MEDS: FLUoxetine HCl 10 MG CAPSULE PO (08:35)
[2023-07-07] MEDS: clonazePAM 0.5 MG TABLET PO (08:35)
[2023-07-07] MEDS: cloNIDine HCL 0.1 MG TABLET PO (08:35)
[2023-07-07] MEDS: methADONE HCl 20 MG/2 ML ORAL.CONC 30 MG PO (08:36)
--- NOTE | 2023-07-07 11:17 | PM.PSYDC ---
DS: Providers Provider Date of Service: 07/07/23 Date of admission: 07/05/23 15:26 Primary care physician: Unknown Physician Consults: 07/06/23 13:32 Addiction Medicine Routine Consulting Provider: Addiction Covering Reason for consultation: methadone dose,using fentanyl and benzo daily Has provider been notified: Yes DS: Diagnosis Discharge Diagnosis (1) MDD (major depressive disorder), recurrent episode: Status: Acute (2) PTSD (post-traumatic stress disorder): Status: Acute (3) Fentanyl use disorder, severe: Status: Acute (4) Cocaine abuse: Status: Acute (5) Opioid use disorder, moderate, dependence: Status: Acute (6) Moderate benzodiazepine use disorder: Status: Acute DS: Medications Discharge Medications Home Medications: Home Medications Medication Instructions Recorded Confirmed albuterol sulfate 90 mcg/actuation 2 puff inhalation Q4-6H PRN 06/05/23 07/04/23 aerosol inhaler (Ventolin HFA) wheezing trazodone 50 mg tablet 50 mg PO BEDTIME 07/04/23 07/04/23 Previous Rx's Medication Instructions Recorded fluoxetine 10 mg capsule 10 mg PO DAILY 30 days #30 caps 07/07/23 Mental Status Exam Mental Status Exam Narrative: Pt is alert and oriented; behavior is cooperative and calm; dressed in casual attire; mood is described as feeling better ; eye contact appropriate; Speech is normal rate, volume. decr prosody and not pressured; no psychomotor agitation/retardation present; thought process is organized and goal directed; Thought content is on tx; otherwise pertinent to relevant topics and without any delusional content, paranoid ideations or grandiosity; denies SI/HI. There is no evidence of perceptual disturbance. Patients insight and judgment are fair. Data Data Completed and Pending Completed studies during hospitalization [Text1]: 07/04/23 07/04/23 07/04/23 23:55 23:56 23:57 WBC 8.4 RBC 5.13 Hgb 15.0 Hct 45.0 MCV 87.7 MCH 29.2 MCHC 33.3 RDW 12.1 Plt Count 152 L MPV 11.1 Immature Gran % (Auto) 0.1 Neut % (Auto) 79.6 H Lymph % (Auto) 11.7 L [place] % (Auto) 6.4 Eos % (Auto) 1.8 Baso % (Auto) 0.4 Lymph # (Auto) 1.0 L [place] # (Auto) 0.5 Eos # (Auto) 0.2 Baso # (Auto) 0.0 Abs Immat Gran (auto) 0.01 Absolute Neuts (auto) 6.7 Absolute Nucleated RBC 0.000 Nucleated RBC % (auto) 0.0 Sodium 143 Potassium 3.6 Chloride 106 Carbon Dioxide 27 Anion Gap 14 BUN 10 Creatinine 1.01 Estim Creat Clear Calc 101.7 Estimated GFR > 60 Random Glucose 98 Fasting Glucose Estimat Average Glucose Hemoglobin A1c % Calcium 9.8 Total Bilirubin 0.6 AST 20 ALT 11 Alkaline Phosphatase 52 Total Protein 7.1 Albumin 4.7 Triglycerides Cholesterol LDL Cholesterol, Calc HDL Cholesterol Vitamin B12 Folate TSH Urine Color Dark Yellow Urine Appearance Clear Urine pH 5.5 Ur Specific [employer] >= 1.030 H Urine Protein Trace Urine Glucose (UA) Negative Urine Ketones Trace Urine Blood Negative Urine Nitrite Negative Ur Leukocyte Esterase Small (1+) H Urine RBC 0-2 Urine WBC 11-20 H Ur Squamous Epith Cells 0-2 Urine Bacteria None Seen Hyaline Casts 0-2 Urine Opiates Screen POSITIVE H Urine Fentanyl Screen POSITIVE H Ur Barbiturates Screen Not Detected Ur Phencyclidine Scrn Not Detected Ur Amphetamines Screen Not Detected U Benzodiazepines Scrn POSITIVE H Urine Cocaine Screen POSITIVE H U Marijuana (THC) Screen POSITIVE H Ethyl Alcohol < 10 COVID-19 (NAY) COVID-19 Clin Com 07/05/23 07/06/23 07/06/23 09:33 06:31 09:28 WBC RBC Hgb Hct MCV MCH MCHC RDW Plt Count MPV Immature Gran % (Auto) Neut % (Auto) Lymph % (Auto) [place] % (Auto) Eos % (Auto) Baso % (Auto) Lymph # (Auto) [place] # (Auto) Eos # (Auto) Baso # (Auto) Abs Immat Gran (auto) Absolute Neuts (auto) Absolute Nucleated RBC Nucleated RBC % (auto) Sodium 144 Potassium 4.4 D Chloride 109 H Carbon Dioxide 29 Anion Gap 10 L BUN 11 Creatinine 0.92 Estim Creat Clear Calc 102.5 Estimated GFR > 60 Random Glucose Fasting Glucose 89 Estimat Average Glucose 94 Hemoglobin A1c % 4.9 Calcium 9.9 Total Bilirubin 0.5 AST 15 ALT 14 Alkaline Phosphatase 45 Total Protein 6.1 L Albumin 4.0 Triglycerides 73 Cholesterol 111 LDL Cholesterol, Calc 62 HDL Cholesterol 35 L Vitamin B12 387 Folate 11.0 TSH 0.54 Urine Color Urine Appearance Urine pH Ur Specific [employer] Urine Protein Urine Glucose (UA) Urine Ketones Urine Blood Urine Nitrite Ur Leukocyte Esterase Urine RBC Urine WBC Ur Squamous Epith Cells Urine Bacteria Hyaline Casts Urine Opiates Screen Urine Fentanyl Screen Ur Barbiturates Screen Ur Phencyclidine Scrn Ur Amphetamines Screen U Benzodiazepines Scrn Urine Cocaine Screen U Marijuana (THC) Screen Ethyl Alcohol COVID-19 (NAY) Negative COVID-19 Clin Com See Note 07/04/23 23:56 Urine clean catch - Urine johnson top Urine Culture - Final No growth. DS: Summary Hospital Course Hospital Course: per 07/06 admission note: Patient is a 38 year old male with hx of MDD, PTSD, polysubstance use who presented to ER d/t suicidal ideation with plan to overdose secondary to command auditory hallucinations telling him to kill himself . Per crisis report, pt reports intentional overdose on sleeping pulls three days ago. He stated, I can't go on like this, I am going to end up killing myself if I don't get help . He reported sleeping for 30 hours after that. Reported impulses to randomly assault other people . UTOX positive for fentanyl, opiates, cocaine, benzodiazepines and cannabis. During admission assessment, pt presents guarded and irritable. Pt stated, I don't want to be here. I should have went to a detox. I spoke to my brother and he is going to take me to court to section 35 me because that's what I need . Patient reports he is feeling fine ; pt stated, I'm not a danger to myself or anyone else. I don't want to . I don't want to go use. I came to the hospital to help me stop using but I should of went to a detox instead . Pt reports he has been using 5mg of klonopin daily and snorting fentanyl daily. Pt denies SI/HI/VH/AH. He reports he does not have outpatient providers and does not follow up with appointments that are set up for him from the hospital; when asked why this is, pt stated, I get distracted doing other things. I don't know why I don't follow up . Patient became upset when informed he would not be getting discharged today. Pt began throwing items around unit, knocking over unit trash, threatening staff that he is going to do something to get kicked out of here . When T/W attempted to speak to patient again, pt stated, I know there are rules here and I'm going to break them so I can get kicked out. I don't want to fucking be here. I feel fine! . Addiction consult was placed pt stated he did not want to meet with addiction team. An additional 15mg of methodone was ordered; pt refused. Case reviewed with . Past Psychiatric History: Inpt: h/o 5 psych hosps. M3 02/2021 (detoxing from benzo and opioids) h/o 1 SA, via overdose. OP: pt reports recently being connected with [facility] in [place]. witness to two of his friends being murdered h/o superficial cutting. Medical Evaluation Reviewed: Yes [facility] Medical History Polysubstance abuse Knee cartilage, torn, right ACL (anterior cruciate ligament) rupture Substance abuse withdrawal Asthma Hepatitis C Hepatitis C antibody positive in blood Family History: father and younger brother have addiction problems Social History: raised by mother, has two brothers, one older and one younger. Substance History: utox positive for opioids, cocaine, marijuana, benzodiazepines, fentanyl. Trauma History: witness to murder of two friends Assessment/Plan Patient is a 38 year old male with hx of MDD, PTSD, polysubstance use who presented to ER d/t suicidal ideation with plan to overdose secondary to command auditory hallucinations telling him to kill himself . addiction medicine consult: was ordered additional methadone 15mg; pt refused. Start: methadone 30mg PO daily Clonidine 0.1mg PO BID Prozac 10mg PO daily Trazodone 100mg PO bedtime Klonopin 0.5mg PO TID Zyprexa 5mg PO q4hr PRN anxiety/agitation Klonopin 1mg PO once 07/07: pt calm, cooperative. reports malingering SI to get help, but now asking to leave. says his brother, with whom he lives, is planning to section 35 him next week. has some things to attend to in the meantime. denies safety concerns. discharged as per his request. Time Spent with Patient Time attestation: Total time managing care of this patient today ____ minutes. Time spent: Greater than 30 minutes Discharge Plan Discharge Anticipated Discharge Date/Time: 07/07/23 12:00 Patient Disposition: Home, Self-Care Discharge Diagnosis: PTSD, Chronic malingering Polysubstance Use Referrals: Therapy & Psychiatry [Other] - 1 Week (Please present to the [facility] clinic Monday through Monday from 9am to 12pm as a walk in to obtain outpatient mental health services -Please follow up with your primary care physician (PCP) as well. ) [facility] [Other] - 1 Week (If you have any questions or concerns, please utilize their walk in service or give them a call. ) Discharge Medications: New fluoxetine 10 mg Capsule 10 mg PO DAILY 30 Days Qty: 30 0RF Continued albuterol sulfate [Ventolin HFA] 90 mcg/actuation HFA aerosol inhaler 2 puff inhalation Q4-6H PRN (Reason: wheezing) trazodone 50 mg tablet 50 mg PO BEDTIME Discharge Orders: Discharge Order (Routine); Ordered 07/07/23 Ordered By: Julian Anaya Diet: Advance to usual diet Activity on Discharge: As tolerated Stand Alone Forms: Patient Portal Discharge page, Community Support Care Plan Goals: remain safe, stable, and sober in the outpatient treatment setting Health Concerns: none Plan of Treatment: take medications as prescribed, attend appointments as scheduled. pursue substance use rehabilitation treatment. Assessment: not at imminent risk of harm to self or others Discharge Date/Time: 07/07/23 11:52
== END 2023-07-07 11:52 | disposition home or self-care (01) | DRG 751 ==
LOC: HO.ED 07-05 07:02 → HO.PADLT16 07-05 15:44
PROVIDERS: Internal Medicine; Admitting Provider Social Worker; Emergency Provider Emergency Medicine Emergency Medical Services; Responsible Provider Registered Nurse; Visit Provider Psychiatry & Neurology Psychiatry
DX: F33.9 Major depressive disorder, recurrent, unspecified (principal); R45.851 Suicidal ideations; F13.239 Sedative, hypnotic or anxiolytic dependence with withdrawal, unspecified; F11.23 Opioid dependence with withdrawal; F43.10 Post-traumatic stress disorder, unspecified; Z76.5 Malingerer [conscious simulation]; F17.210 Nicotine dependence, cigarettes, uncomplicated; Z71.6 Tobacco abuse counseling; Z20.822 Contact with and (suspected) exposure to COVID-19
CPT/HCPCS: 36415; 80053; 80061; 80307; 81001; 82607; 82746; 83036; 84443; 85025; 87086; 87635; 93005; 99285; S9485

== ENCOUNTER → 2023-07-05 15:26 | Outpatient (BNV) | payer OTHER, SELFPAY | PROVIDERS: Admitting Provider Social Worker; Emergency Provider Emergency Medicine Emergency Medical Services; Visit Provider Psychiatry & Neurology Psychiatry | DX: F33.9 Major depressive disorder, recurrent, unspecified (principal); F43.10 Post-traumatic stress disorder, unspecified; F11.20 Opioid dependence, uncomplicated; F14.10 Cocaine abuse, uncomplicated; F13.20 Sedative, hypnotic or anxiolytic dependence, uncomplicated | CPT/HCPCS: 90792 ==

== ENCOUNTER → 2023-07-05 15:26 | Outpatient (BNV) | payer OTHER, SELFPAY | PROVIDERS: Admitting Provider Social Worker; Emergency Provider Emergency Medicine Emergency Medical Services; Visit Provider Nurse Practitioner Psychiatric/Mental Health | DX: F33.2 Major depressive disorder, recurrent severe without psychotic features (principal); F14.10 Cocaine abuse, uncomplicated; F11.20 Opioid dependence, uncomplicated; F43.11 Post-traumatic stress disorder, acute; F13.20 Sedative, hypnotic or anxiolytic dependence, uncomplicated | CPT/HCPCS: 99232; 99499 ==

== ENCOUNTER 2023-07-15 12:43 | Emergency (ER) | payer MEDICAID, OTHER, SELFPAY ==
[2023-07-15 12:51] VITALS: BP 94/55; PULSE 69; RESP 18; TEMP 36.5; O2SAT 95; BMI 21.0
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
--- NOTE | 2023-07-15 13:09 | ECG_ITS ---
Test Reason : QT INTERVAL Blood Pressure : / mmHG Vent. Rate : 055 BPM Atrial Rate : 055 BPM P-R Int : 162 ms QRS Dur : 076 ms QT Int : 474 ms P-R-T Axes : 073 070 075 degrees QTc Int : 453 ms Sinus bradycardia with sinus arrhythmia Otherwise normal ECG When compared with ECG of 05-JUL-2023 09:44, No significant change was found Referred By: Subha Lawson Electronically Signed By:JENNIFER REGALADO MD
[2023-07-15 13:25] LABS: Appearance Urine Clear; Color Urine Yellow; Glucose Urine UA Negative (Negative); Leukocyte Esterase Urine Negative (Negative); Nitrite Urine Negative (Negative); PH 5.5 (5.0-9.0); UMIC TRIGGER UACC YES; Urine Blood Moderate (2+) (Negative); Urine Ketones Negative (Negative); Urine Protein Negative (Neg-Trace)
[2023-07-15 13:28] LABS: Bacteria Urine None Seen (None Seen); Hyaline Casts Urine 0-2 /LPF (0-2); RBC Urine >20 /HPF (0-2); Squamous Epithelial Cell Urine 0-2 /HPF (0-2); WBC Urine 0-5 /HPF (0-5)
[2023-07-15 13:31] LABS: Amphetamine Screen Urine Not Detected (Not Detect); Barbiturates, Urine Not Detected (Not Detect); Benzodiazepines Screen Urine POSITIVE (Not Detect); Cannabinoid Screen Urine POSITIVE (Not Detect); Cocaine Screen Urine POSITIVE (Not Detect); Fentanyl, urine POSITIVE (Not Detect); Opiate Screen Urine POSITIVE (Not Detect); Phencyclidine Screen Urine Not Detected (Not Detect)
[2023-07-15 13:58] LABS: MANUAL DIFF FLAG NO
[2023-07-15 14:09] LABS: Basophils Percent Auto 0.5 % (0-2); Eosinophils Absolute Auto 0.2 X10*3/uL (0.0-0.4); Eosinophils Percent Auto 2.9 % (0-4); Hematocrit 40.3 % (42.0-52.0); Hemoglobin 13.3 g/dl (14.0-18.0); Imm Gran Abs Auto 0.01 X10*3/uL (0.00-0.03); Imm Gran Pct Auto 0.2 % (0.0-0.4); Lymphocytes Percent Auto 17.6 % (20-40); Mean Corpuscular Hemoglobin 29.3 pg (27.0-33.0); Mean Corpuscular Volume 88.8 fL (80.0-98.0); Mean Platelet Volume 11.1 fL (9.4-12.4); Monocytes Absolute Auto 0.4 X10*3/uL (0.1-1.2); Monocytes Percent Auto 6.4 % (2-11); Neutrophils Absolute Auto 4.1 x10*3/uL (2.0-8.3); Neutrophils Percent Auto 72.4 % (45-73); Platelet Count 118 X10*3/uL (160-400); Red Blood Count 4.54 X10*6/uL (4.60-5.80); Red Cell Distribution Width 11.9 % (11.0-16.0); White Blood Count 5.6 X10*3/uL (4.8-10.8)
[2023-07-15 14:18] LABS: Acetaminophen LAB < 3 mcg/mL (<30); Alanine Aminotransferase 6 U/L (0-40); Albumin Level 4.1 g/dL (3.5-5.0); Alkaline Phosphatase 56 U/L (39-117); Anion Gap 11 (12-20); Aspartate Amino Transferase 14 U/L (5-37); Bilirubin Direct 0.2 mg/dL (0.0-0.5); Bilirubin Total 0.5 mg/dL (0.0-1.0); Blood Urea Nitrogen 9 mg/dL (9-16); Calcium 9.4 mg/dL (8.4-10.2); Carbon Dioxide 30 mmol/L (22-29); Chloride 105 mmol/L (96-108); Creatinine Clr Calc Pharmacy 127.5; Estimated Glomerular Filt Rate > 60; Ethanol < 10 mg/dL; Glucose Random 117 mg/dL (60-115); Potassium 4.2 mmol/L (3.3-5.1); Sodium 142 mmol/L (135-145); Total Protein 6.2 g/dL (6.5-8.0)
[2023-07-15 14:54] LABS: Salicylate < 5.0 mg/dL (15-30)
--- NOTE | 2023-07-15 16:40 | PC.NURSE ---
Addendum entered by Jeff Franco RN 07/15/23 16:43: Patient self presented to ED with SI. Patient stated he does not take any prescribed medications. Patient stated he uses heroin approximately 1 bundle a day. Patient also states he usually takes about 4 non prescribed klonopin a day. Patient is a smoker and requested PRN nicotine gum which was ordered by MD. Patient resting comfortable in room. Original Note: Patient self presented with SI. S
[2023-07-15 17:38] VITALS: BP 101/61; PULSE 54; RESP 16; TEMP 36.9; O2SAT 98
[2023-07-16] MEDS: hydrOXYzine HCL 50 MG TABLET PO (00:14)
[2023-07-16 07:44] VITALS: RESP 18
[2023-07-16 08:58] VITALS: BP 108/63; PULSE 62; RESP 18; TEMP 36.4; O2SAT 97
--- NOTE | 2023-07-16 10:27 | PC.NURSE ---
Patient is alert and oriented and able to make needs known. No SI/AH/VH. Patient is resting in bed at this time.
--- NOTE | 2023-07-16 10:40 | PHA.MEDREC ---
Pharmacy Consult ? Medication Reconciliation Pharmacy has completed the medication reconciliation. Reviewed med rec done by nursing who reported that pt does not take any prescribed meedications
--- NOTE | 2023-07-16 12:20 | PC.NURSE ---
patient requested to be discharged and said there is no point in staying here. CARE team came and spoke to patient then consulted provider. Patient will be discharging home
--- NOTE | 2023-07-16 13:12 | PC.NURSE ---
patient discharged home with belongings
--- NOTE | 2023-07-17 08:26 | MHC.CARE ---
RAD Team sent referral to [facility] for outpatient therapy, [facility] to follow up with pt for intake date and timeline.
== END 2023-07-16 13:13 | disposition home or self-care (01) ==
PROVIDERS: Nurse Practitioner Family; Physician Assistant Medical; Emergency Provider Emergency Medicine Emergency Medical Services; PCP Internal Medicine
DX: F11.20 Opioid dependence, uncomplicated (principal); F32.A Depression, unspecified; R45.851 Suicidal ideations; F19.10 Other psychoactive substance abuse, uncomplicated; F13.10 Sedative, hypnotic or anxiolytic abuse, uncomplicated; F43.10 Post-traumatic stress disorder, unspecified; F17.210 Nicotine dependence, cigarettes, uncomplicated
CPT/HCPCS: 36415; 80048; 80076; 80143; 80179; 80307; 81001; 85025; 93005; 99285; S9485

== ENCOUNTER 2023-07-17 15:38 | Emergency (ER) | payer MEDICAID, SELFPAY ==
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
[2023-07-17 15:47] VITALS: BP 108/68; PULSE 85; RESP 18; TEMP 36.8; O2SAT 95; BMI 20.9
--- NOTE | 2023-07-17 15:48 | ECG_ITS ---
Test Reason : withdrawal Blood Pressure : / mmHG Vent. Rate : 071 BPM Atrial Rate : 071 BPM P-R Int : 148 ms QRS Dur : 074 ms QT Int : 410 ms P-R-T Axes : 084 068 068 degrees QTc Int : 445 ms Normal sinus rhythm with sinus arrhythmia Normal ECG When compared with ECG of 15-JUL-2023 15:26, No significant change was found Referred By: Subha Lawson Electronically Signed By:JENNIFER REGALADO MD
[2023-07-17 16:40] LABS: MANUAL DIFF FLAG NO
[2023-07-17 16:42] LABS: Basophils Percent Auto 0.4 % (0-2); Eosinophils Percent Auto 0.4 % (0-4); Hematocrit 46.6 % (42.0-52.0); Hemoglobin 15.8 g/dl (14.0-18.0); Imm Gran Abs Auto 0.02 X10*3/uL (0.00-0.03); Imm Gran Pct Auto 0.3 % (0.0-0.4); Lymphocytes Absolute Auto 0.9 X10*3/uL (1.2-4.9); Lymphocytes Percent Auto 12.2 % (20-40); Mean Corpuscular HGB Conc 33.9 g/dl (31.0-36.0); Mean Corpuscular Volume 85.7 fL (80.0-98.0); Mean Platelet Volume 10.8 fL (9.4-12.4); Monocytes Absolute Auto 0.3 X10*3/uL (0.1-1.2); Monocytes Percent Auto 4.1 % (2-11); Neutrophils Percent Auto 82.6 % (45-73); Platelet Count 153 X10*3/uL (160-400); Red Blood Count 5.44 X10*6/uL (4.60-5.80); Red Cell Distribution Width 11.7 % (11.0-16.0); White Blood Count 7.2 X10*3/uL (4.8-10.8)
[2023-07-17 16:43] LABS: Appearance Urine Turbid; Color Urine Dark Yellow; Glucose Urine UA Negative (Negative); Leukocyte Esterase Urine Trace (Negative); Nitrite Urine Negative (Negative); Specific Gravity - Urine 1.025 (1.005-1.025); UMIC TRIGGER UA YES; Urine Blood Negative (Negative); Urine Ketones Trace mg/dL (Negative); Urine Protein Trace mg/dL (Neg-Trace)
[2023-07-17 16:47] LABS: Bacteria Urine None Seen (None Seen); RBC Urine 0-2 /HPF (0-2); Squamous Epithelial Cell Urine 0-2 /HPF (0-2); WBC Urine 0-5 /HPF (0-5)
[2023-07-17 16:55] LABS: Amphetamine Screen Urine Not Detected (Not Detect); Barbiturates, Urine Not Detected (Not Detect); Benzodiazepines Screen Urine Not Detected (Not Detect); Cannabinoid Screen Urine POSITIVE (Not Detect); Cocaine Screen Urine POSITIVE (Not Detect); Fentanyl, urine POSITIVE (Not Detect); Opiate Screen Urine POSITIVE (Not Detect); Phencyclidine Screen Urine Not Detected (Not Detect)
[2023-07-17 16:58] LABS: IDNOW Serial# 08D9AD1C
[2023-07-17 16:59] LABS: Acetaminophen LAB < 3 mcg/mL (<30); Alanine Aminotransferase 7 U/L (0-40); Albumin Level 4.8 g/dL (3.5-5.0); Alkaline Phosphatase 61 U/L (39-117); Anion Gap 11 (12-20); Aspartate Amino Transferase 14 U/L (5-37); Bilirubin Total 0.6 mg/dL (0.0-1.0); Blood Urea Nitrogen 14 mg/dL (9-16); COVID-19 Test Negative (Negative); Calcium 9.9 mg/dL (8.4-10.2); Carbon Dioxide 29 mmol/L (22-29); Chloride 104 mmol/L (96-108); Creatinine Clr Calc Pharmacy 110.7; Estimated Glomerular Filt Rate > 60; Ethanol < 10 mg/dL; Glucose Random 113 mg/dL (60-115); Potassium 4.4 mmol/L (3.3-5.1); Sodium 140 mmol/L (135-145); Total Protein 7.3 g/dL (6.5-8.0)
[2023-07-17 17:10] LABS: Salicylate < 5.0 mg/dL (15-30)
--- NOTE | 2023-07-17 17:33 | MHC.RECOVSUP ---
? Reason for consult Recovery Support o Current location: [facility] o Identified substance use concern: Benzo / Opiate - Seeking ATS (detox) - Support ? Intervention: o Community resources provided o Harm reduction discussion ? Plan: o Patient to follow up with [facility] after discharge ? Additional information: Met with Patient and we talked about Recovery and harm reduction... Patient stated that he wants to stop using, Its to much.. I explain that I had called and that theres no beds local at the moment.. But that he could go as a walk in at [facility] at 7 am.. He agreed..
[2023-07-17] MEDS: LORazepam 1 MG TABLET PO (18:25)
--- NOTE | 2023-07-17 18:45 | PC.NURSE ---
pt medicated per RAISA w/ 1mg ativan
== END 2023-07-17 18:46 | disposition home or self-care (01) ==
PROVIDERS: Physician Assistant Medical; Emergency Provider Emergency Medicine Emergency Medical Services; PCP Internal Medicine
DX: F19.20 Other psychoactive substance dependence, uncomplicated (principal); B19.20 Unspecified viral hepatitis C without hepatic coma; F32.9 Major depressive disorder, single episode, unspecified; Z11.52 Encounter for screening for COVID-19; Z79.899 Other long term (current) drug therapy
CPT/HCPCS: 80053; 80143; 80179; 80307; 81001; 85025; 87635; 93005; 99284

== ENCOUNTER 2023-11-05 11:52 | Emergency (ER) | payer MEDICAID, SELFPAY ==
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
[2023-11-05 12:01] VITALS: BP 128/87; BP 140/82; PULSE 82; PULSE 93; RESP 12; TEMP 36.6; O2SAT 98; O2SAT 99; BMI 18.8
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
--- NOTE | 2023-11-05 12:08 | PC.NURSE ---
dr.. rosenberg immediately at bedside. pt aware of plan of care.
[2023-11-05 12:22] LABS: MANUAL DIFF FLAG NO
[2023-11-05 12:26] LABS: Basophils Percent Auto 0.2 % (0-2); Eosinophils Percent Auto 0.3 % (0-4); Hematocrit 41.3 % (42.0-52.0); Hemoglobin 13.6 g/dl (14.0-18.0); Imm Gran Abs Auto 0.04 X10*3/uL (0.00-0.03); Imm Gran Pct Auto 0.4 % (0.0-0.4); Lymphocytes Absolute Auto 0.9 X10*3/uL (1.2-4.9); Lymphocytes Percent Auto 8.3 % (20-40); Mean Corpuscular HGB Conc 32.9 g/dl (31.0-36.0); Mean Corpuscular Hemoglobin 29.6 pg (27.0-33.0); Mean Corpuscular Volume 89.8 fL (80.0-98.0); Mean Platelet Volume 10.6 fL (9.4-12.4); Monocytes Absolute Auto 0.4 X10*3/uL (0.1-1.2); Monocytes Percent Auto 3.7 % (2-11); Neutrophils Absolute Auto 9.8 x10*3/uL (2.0-8.3); Neutrophils Percent Auto 87.1 % (45-73); Platelet Count 163 X10*3/uL (160-400); Red Cell Distribution Width 12.5 % (11.0-16.0); White Blood Count 11.2 X10*3/uL (4.8-10.8)
[2023-11-05 12:32] LABS: Prothrombin Time 12.7 SEC (11.1-13.3)
[2023-11-05 12:40] LABS: Alanine Aminotransferase 13 U/L (0-40); Albumin Level 4.1 g/dL (3.5-5.0); Alkaline Phosphatase 59 U/L (39-117); Anion Gap 12 (12-20); Aspartate Amino Transferase 19 U/L (5-37); Bilirubin Total 0.4 mg/dL (0.0-1.0); Blood Urea Nitrogen 13 mg/dL (9-16); Calcium 9.2 mg/dL (8.4-10.2); Carbon Dioxide 28 mmol/L (22-29); Chloride 105 mmol/L (96-108); Estimated Glomerular Filt Rate > 60; Glucose Random 134 mg/dL (60-115); Potassium 3.8 mmol/L (3.3-5.1); Sodium 141 mmol/L (135-145); Total Protein 6.4 g/dL (6.5-8.0)
[2023-11-05] MEDS: Ketorolac Tromethamine 30 MG/ML VIAL 15 MG IVPUSH (13:44)
[2023-11-05] MEDS: 0.9 % Sodium Chloride 1,000 ML 999 ML IV (13:46)
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
== END 2023-11-05 14:39 | disposition left against medical advice (07) ==
PROVIDERS: Emergency Provider Student in an Organized Health Care Education/Training Program
DX: S00.03XA Contusion of scalp, initial encounter (principal); S00.81XA Abrasion of other part of head, initial encounter; R07.9 Chest pain, unspecified; R51.9 Headache, unspecified; M54.2 Cervicalgia; F17.200 Nicotine dependence, unspecified, uncomplicated; Y04.2XXA Assault by strike against or bumped into by another person, initial encounter; Y93.9 Activity, unspecified; Y92.9 Unspecified place or not applicable; Y99.8 Other external cause status; Z23 Encounter for immunization
CPT/HCPCS: 36415; 70450; 71250; 72125; 80053; 85025; 85610; 93005; 96374; 99284; J1885

== ENCOUNTER → 2023-11-05 12:05 | Outpatient (BNV) | payer MEDICAID, SELFPAY | PROVIDERS: Emergency Provider Student in an Organized Health Care Education/Training Program; Visit Provider Internal Medicine Cardiovascular Disease | DX: I47.10 Supraventricular tachycardia, unspecified (principal) | CPT/HCPCS: 93010 ==

== ENCOUNTER 2024-07-22 08:38 | Inpatient (IN) | payer MEDICAID, OTHER, SELFPAY ==
--- NOTE | ~2024-07-22 | US_ITS ---
EXAMINATION: US TRIPLEX LOWER EXTREMITY, LEFT CLINICAL INFORMATION: Left lower extremity edema and pain COMPARISON: 07/22/2024 TECHNIQUE: Color-flow triplex imaging with spectral analysis and compression Doppler were performed on the left lower extremity. FINDINGS: Respiratory variation, normal compression and augmented flow are noted throughout the left lower extremity. The visualized common femoral vein, superficial femoral vein, profunda femoral vein, popliteal vein and midcalf peroneal and posterior tibial venous segments show no evidence of deep venous thrombosis. There is no Otero's cyst. Focal area of echogenic edema within the left mid calf. No evidence of fluid collection US/US venous duplex LE IMPRESSION: No evidence of deep venous thrombosis involving the left lower extremity. Electronically signed by: Mich Harper MD 07/26/2024 04:51 PM [facility]
--- NOTE | ~2024-07-22 | US_ITS ---
EXAMINATION: US TRIPLEX LOWER EXTREMITY, LEFT CLINICAL INFORMATION: Edema, left lower extremity COMPARISON: None available. TECHNIQUE: Color-flow triplex imaging with spectral analysis and compression Doppler were performed on the left lower extremity. FINDINGS: Respiratory variation, normal compression and augmented flow are noted throughout the left lower extremity. The visualized common femoral vein, superficial femoral vein, profunda femoral vein, popliteal vein and midcalf peroneal and posterior tibial venous segments show no evidence of deep venous thrombosis. There is no Otero's cyst. US/US venous duplex LE LT IMPRESSION: No acute deep venous thrombosis involving the left lower extremity. Electronically signed by: Harrison Cedeno MD 07/22/2024 11:53 AM EST
[2024-07-22 08:48] VITALS: BP 108/66; PULSE 87; RESP 18; TEMP 36.9; O2SAT 97; BMI 24.4
--- NOTE | 2024-07-22 09:38 | ED_ITS ---
HPI - General Adult General Chief complaint: Extremity Problem Stated complaint: rash l leg for days,pt sts feels feverish per ems Time Seen by Provider: 07/22/24 09:37 Source: patient and EMS Mode of arrival: EMS Limitations: no limitations History of Present Illness ED Provider: Subha Lawson PA-C HPI narrative: Patient is a 39 year old assigned male at with a history of polysubstance abuse, asthma, and PTSD presenting to the emergency department today with left lower leg swelling / pain. Patient states that he has been out of senior living for 10 days. Patient states that he is currently homeless and has been having left lower leg pain / swelling. Patient denies any dizziness, lightheadedness, abdominal pain, nausea, vomiting, fever, chills, blurry vision, double vision, loss of vision, chest pain, difficulty breathing, shortness of breath, back pain, night sweats, pain with urination, increased urinary frequency, increased urinary urgency, blood in his urine or stool, syncope or a near syncopal episode, recent trauma or falls, bowel incontinence, bladder incontinence, or any other complaints at this time. Relieving factors: none Exacerbating factors: none Treatments prior to arrival: none Related Data Home Medications ?Medication ?Instructions ?Recorded ?Confirmed methadone 10 mg/mL oral 115 mg PO DAILY 07/22/24 07/22/24 concentrate (Methadone Intensol) Allergies Allergy/AdvReac Type Severity Reaction Status Date / Time mayonnaise [MAYONNAISE] Allergy Intermediate THROAT AND Verified 07/22/24 08:50 TONGUE ITCH quetiapine [From SEROQUEL] Allergy Intermediate DYSTONIA Verified 07/22/24 08:50 cat dander [CATS] Allergy Unknown WATERY Verified 07/22/24 08:50 EYES, SNEEZING dog dander [DOG] Allergy Unknown UNKNOWN Verified 07/22/24 08:50 paroxetine [From PAXIL] Allergy Unknown FLU LIKE Verified 07/22/24 08:50 SYMPTOMS penicillin V Allergy Unknown Unknown Verified 07/22/24 08:50 Penicillins [PENICILLINS] Allergy Unknown SWELLING Verified 07/22/24 08:50 SEAFOOD Allergy Severe DIFFICULTY Uncoded 07/22/24 08:50 BREATHING Review of Systems 2 Constitutional: Constitutional: Reports no additional constitutional complaints, Denies chills, Denies fever(s) and Denies night sweats Eyes: Eyes: Reports no additional eye complaints, Denies blurry vision, Denies change in vision, Denies diplopia, Denies eye discharge, Denies loss of vision and Denies eye pain ENT: Denies dizziness Cardiovascular: Cardiovascular: Reports no additional cardiovascular complaints, Denies chest pain, Denies lightheadedness, Denies Loss of Consciousness and Denies dyspnea Respiratory: Respiratory: Reports no additional respiratory complaints and Denies dyspnea Gastrointestinal: Gastrointestinal: Reports no additional gastrointestinal complaints, Denies abdominal pain, Denies melena, Denies hematochezia, Denies change in bowel habits and Denies change in stool character Genitourinary: Genitourinary: Reports no additional male genitourinary complaints, Denies hematuria, Denies oliguria, Denies difficulty urinating, Denies dysuria, Denies urinary frequency, Denies urinary hesitancy, Denies urinary incontinence and Denies urinary urgency Musculoskeletal: Musculoskeletal: Reports no additional musculoskeletal complaints, Denies numbness and Denies tingling Comments: left lower leg pain / swelling Neurologic: Denies dizziness, Denies loss of vision, Denies numbness and Denies tingling Psychiatric: Psychiatric: Reports no additional psychiatric complaints Endocrine: Endocrine: Reports no additional endocrine complaints Hematologic/Lymphatic: Hematologic/Lymphatic: Reports no additional hematologic/lymphatic complaints Allergic/Immunologic: Allergic/Immunologic: Reports no additional allergic/immunologic complaints PMFSH Past Medical History Attestation statement: The following information was validated with the patient. Source: old records reviewed and nursing notes reviewed Medical History Polysubstance abuse MDD (major depressive disorder), recurrent episode Depression Polysubstance abuse Knee cartilage, torn, right ACL (anterior cruciate ligament) rupture Substance abuse withdrawal Asthma Hepatitis C Hepatitis C antibody positive in blood Social History Social History Household Members: Family Household Members Other:: brother Housing: Apartment Do you presently have visiting nurse or other home services: No Unable to assess alcohol history related to: Unknown Alcohol intake: former Patient Tobacco Use Status: Current everyday Tobacco user Tobacco use type: Cigarette Cigarette Packs Per Day: 10 Cigarettes Per Day: 5 Years Smoked: 15 e-Cigarette/Vaping Use: Never Used Second Hand Smoke Exposure: Yes Substance Use Type: Heroin Advance Directives: No Advance Directives Information Provided: No Do you have a plan to hurt others: No Plan service: No Sexual orientation: Straight/Heterosexual Physical Exam ED Vital Signs: Vital Signs - 24 hr 07/22/24 08:48 07/22/24 10:45 Temperature 98.4 F 97.9 F Pulse Rate 87 79 Respiratory Rate 18 17 Blood Pressure 108/66 108/71 Pulse Oximetry 97 98 Oxygen Delivery Method Room Air Room Air BMI result Body Mass Index 24.4 Const General: cooperative, no acute distress, alert and awake Nutritional Appearance: well nourished Orientation/consciousness: patient oriented x3 Limitations: no limitations HENMT Head: Yes normal to inspection and Yes atraumatic Ears: hearing grossly normal bilaterally and external ears normal General nose exam: Normal external nose present, no nasal discharge noted and no epistaxis Face and sinus: Yes normal facial exam, No abrasion and No laceration Mouth: Normal oral and palatal mucosa present, no drooling and no muffled voice Eyes General: appearance normal, both eyes and all related structures Periorbital: periorbital findings normal Eyelids: Yes eyelids normal Conjunctivae: conjunctivae normal Pupils: Equal, round and reactive pupils present EOM: EOMs intact bilaterally Neck Neck: Yes normal visual inspection, Yes full ROM and Yes no lymphadenopathy Chest Chest palpation & inspection: normal inspection of the chest Resp Effort & Inspection: normal respiratory effort and able to speak in complete sentences GI Inspection: Yes normal to inspection Neuro General: patient oriented x3 and moves all extremities Cranial nerves: Yes Equal, round and reactive pupils present Cognition (Neuro): normal cognition Extrem Other: General: Yes full ROM and Yes capillary refill normal Psych Appearance: grossly normal Mental Status: mental status grossly normal Affect: normal affect Attitude: cooperative Thought process: Normal thought process present Thought content: Normal thought content present Insight: Good insight present (Psych) Medications Administered Discontinued Medications Generic Name Dose Route Start Last Admin Trade Name Freq PRN Reason Stop Dose Admin Doxycycline Monohydrate 100 mg 07/22/24 11:57 07/22/24 13:29 Doxycycline Monohydrate 100 Mg Capsule PO 07/22/24 11:58 100 mg ONCE ONE Administration Medical Decision Making Medical Decision Making MDM Narrative: Patient is a 39 year old assigned male at with a history of polysubstance abuse, asthma, and PTSD presenting to the emergency department today with left lower leg swelling / pain. Patient's physical exam was as noted in the physical exam portion of this note. Patient's blood work showed an elevated ESR of 23 and CRP of 15.42 but were otherwise unremarkable. Patient's LLE US showed no acute process. Patient was seen by the addiction team and the patient declined all resources. I explained my physical exam findings as well as all test results to the patient. I answered all questions asked by the patient. Patient was set to be discharged after his receiving his dose of methadone and antibiotic however, he refused stating that if he were to be discharged - he would kill himself outside of our front doors because he is currently homeless. CARE consult placed. Patient's disposition will be determined after CARE team evaluation. Differential Diagnosis Differential Diagnoses: The differential diagnosis associated with the presentation includes Left lower leg cellulitis Left lower leg DVT Suicidal ideation Admission/Observation Consideration of admission/observation: Escalation of care including admission/observation considered Patient's disposition will be determined after CARE team evaluation. Consult Healthcare Provider Management of the patient was discussed with: Behavioral Health Provider (spoke to the addiction team as noted in the MDM Rationale portion of this note. ) Lab Data [facility] Lab Attestation statement: I reviewed the patient's lab results. My interpretation of these results are in the MDM Rationale portion of this note. 07/22/24 10:23 07/22/24 10:23 Labs: Lab Results 07/22/24 07/22/24 Range/Units 10:23 10:24 WBC 9.4 (4.8-10.8) X10*3/uL RBC 3.95 L (4.60-5.80) X10*6/uL Hgb 11.6 L (14.0-18.0) g/dl Hct 34.6 L (42.0-52.0) % MCV 87.6 (80.0-98.0) fL MCH 29.4 (27.0-33.0) pg MCHC 33.5 (31.0-36.0) g/dl RDW 11.8 (11.0-16.0) % Plt Count 164 (160-400) X10*3/uL MPV 10.3 (9.4-12.4) fL Immature Gran % (Auto) 0.3 (0.0-0.4) % Neut % (Auto) 83.1 H (45-73) % Lymph % (Auto) 7.1 L (20-40) % [place] % (Auto) 8.7 (2-11) % Eos % (Auto) 0.6 (0-4) % Baso % (Auto) 0.2 (0-2) % Lymph # (Auto) 0.7 L (1.2-4.9) X10*3/uL [place] # (Auto) 0.8 (0.1-1.2) X10*3/uL Eos # (Auto) 0.1 (0.0-0.4) X10*3/uL Baso # (Auto) 0.0 (0.0-0.2) X10*3/uL Abs Immat Gran (auto) 0.03 (0.00-0.03) X10*3/uL Absolute Neuts (auto) 7.8 (2.0-8.3) x10*3/uL Absolute Nucleated RBC 0.000 (0.0-0.012) X10*3/uL Nucleated RBC % (auto) 0.0 (0.0-0.2) /100WBC ESR 23 H (0-15) MM/HR Sodium 139 (135-145) mmol/L Potassium 3.3 (3.3-5.1) mmol/L Chloride 103 (96-108) mmol/L Carbon Dioxide 27 (22-29) mmol/L Anion Gap 12 (12-20) BUN 11 (9-16) mg/dL Creatinine 0.88 (0.5-1.4) mg/dL Estim Creat Clear Calc 116.3 Estimated GFR > 60 Random Glucose 109 (60-115) mg/dL Lactic Acid 0.9 (0.5-2.0) mmol/L Calcium 9.1 (8.4-10.2) mg/dL Total Bilirubin 0.7 (0.0-1.0) mg/dL AST 103 H (5-37) U/L ALT 52 H (0-40) U/L Alkaline Phosphatase 57 (39-117) U/L C-Reactive Protein 15.42 H (< or = 0.50) mg/dL Total Protein 6.1 L (6.5-8.0) g/dL Albumin 3.7 (3.5-5.0) g/dL Independent Interpretation I performed an independent interpretation of an: Ultrasound Interpretation: My interpretation is in agreement with the radiologist's impression of this imaging study. L EXAMINATION: US TRIPLEX LOWER EXTREMITY, LEFT CLINICAL INFORMATION: Edema, left lower extremity COMPARISON: None available. TECHNIQUE: Color-flow triplex imaging with spectral analysis and compression. Doppler were performed on the left lower extremity. FINDINGS: Respiratory variation, normal compression and augmented flow are noted throughout the left lower extremity. The visualized common femoral vein, superficial femoral vein, profunda femoral vein, popliteal vein and midcalf peroneal and posterior tibial venous segments show no evidence of deep venous thrombosis. There is no Otero's cyst. US/US venous duplex LE LT IMPRESSION: No acute deep venous thrombosis involving the left lower extremity. Electronically signed by: Harrison Cedeno MD 07/22/2024 11:53 AM EST Dictated By: Harrison Berger MD Signed By: Electronically signed by Harrison Nichols MD 07/22/24 1153 Radiology Impression Discussion of test interpretation with radiology: I have reviewed the radiologist's reading. Independent Historian Clinical information obtained from an independent historian. History obtained from or confirmed by: EMS (EMS provided additional history and confirmed the history provided by the patient.) Prescription Management I considered prescription management with: Antibiotic (patient prescribed an antibiotic for left lower leg cellulitis) Critical Care Time Critical Care Time Critical Care Time: Yes Total Critical Care Time: 34 Attestation: I spent 34 minutes of Critical Care Time with this patient. This does not include time spent on separately reported billable procedures. Discharge Plan Discharge Clinical Impression: Cellulitis Patient Disposition: Still a Patient Instructions: Cellulitis (DC) Additional Instructions: Please avoid any illegal substance use. Follow up with your primary care provider. Return to the emergency department immediately if your symptoms worsen or if you develop any dizziness, shortness of breath, difficulty breathing, chest pain, blurry vision, loss of vision, nausea, vomiting, abdominal pain, fever, chills, back pain, or any other complaints. [facility] at [facility]: [address] [place] [address] Walk in hours from 10am - 12pm Open from 10am - 12pm [facility] Crisis Services: [address], [place] [id number] Walk in hours from 10am - 12pm Open 27/03 [facility]: [address] [place] [address] AND [address] [place] [address] Hours: M-F 8am to 8pm Monday and Monday 9am to 5pm Prescriptions: No Action methadone [Methadone Intensol] 10 mg/mL Concentrate 115 mg PO DAILY Referrals: [facility] [Provider Group] (Call to establish and follow up with a primary care provider. If you already have a primary care provider, please follow up with them.) [facility], Chris [Provider Group] (Call to establish and follow up with a primary care provider. If you already have a primary care provider, please follow up with them.) [facility],Nik [Provider Group] (Call to establish and follow up with a primary care provider. If you already have a primary care provider, please follow up with them.) Print Language: Mongolian
[2024-07-22 10:30] LABS: MANUAL DIFF FLAG NO
[2024-07-22 10:33] LABS: Basophils Percent Auto 0.2 % (0-2); Eosinophils Absolute Auto 0.1 X10*3/uL (0.0-0.4); Eosinophils Percent Auto 0.6 % (0-4); Hematocrit 34.6 % (42.0-52.0); Hemoglobin 11.6 g/dl (14.0-18.0); Imm Gran Abs Auto 0.03 X10*3/uL (0.00-0.03); Imm Gran Pct Auto 0.3 % (0.0-0.4); Lymphocytes Absolute Auto 0.7 X10*3/uL (1.2-4.9); Lymphocytes Percent Auto 7.1 % (20-40); Mean Corpuscular HGB Conc 33.5 g/dl (31.0-36.0); Mean Corpuscular Hemoglobin 29.4 pg (27.0-33.0); Mean Corpuscular Volume 87.6 fL (80.0-98.0); Mean Platelet Volume 10.3 fL (9.4-12.4); Monocytes Absolute Auto 0.8 X10*3/uL (0.1-1.2); Monocytes Percent Auto 8.7 % (2-11); Neutrophils Absolute Auto 7.8 x10*3/uL (2.0-8.3); Neutrophils Percent Auto 83.1 % (45-73); Platelet Count 164 X10*3/uL (160-400); Red Blood Count 3.95 X10*6/uL (4.60-5.80); Red Cell Distribution Width 11.8 % (11.0-16.0); White Blood Count 9.4 X10*3/uL (4.8-10.8)
[2024-07-22 10:45] VITALS: BP 108/71; PULSE 79; RESP 17; TEMP 36.6; O2SAT 98
[2024-07-22 10:53] LABS: Lactic Acid 0.9 mmol/L (0.5-2.0)
[2024-07-22 11:02] LABS: Alanine Aminotransferase 52 U/L (0-40); Albumin Level 3.7 g/dL (3.5-5.0); Alkaline Phosphatase 57 U/L (39-117); Anion Gap 12 (12-20); Aspartate Amino Transferase 103 U/L (5-37); Bilirubin Total 0.7 mg/dL (0.0-1.0); Blood Urea Nitrogen 11 mg/dL (9-16); C Reactive Protein 15.42 mg/dL (< or = 0.50); Calcium 9.1 mg/dL (8.4-10.2); Carbon Dioxide 27 mmol/L (22-29); Chloride 103 mmol/L (96-108); Creatinine Clr Calc Pharmacy 116.3; Estimated Glomerular Filt Rate > 60; Glucose Random 109 mg/dL (60-115); Potassium 3.3 mmol/L (3.3-5.1); Sodium 139 mmol/L (135-145); Total Protein 6.1 g/dL (6.5-8.0)
[2024-07-22 11:16] LABS: Erythrocyte Sedimentation Rate 23 MM/HR (0-15)
--- NOTE | 2024-07-22 11:24 | HE.PHANOTE ---
Methadone Pt last received 115 mg 07/21/24 @ 0819 from JAZMYN Zaragoza.
[2024-07-22] MEDS: Doxycycline Monohydrate 100 MG CAPSULE PO (13:29)
--- NOTE | 2024-07-22 13:37 | MHC.RECOVRN ---
Met with pt in [id number] after provider request. Pt had presented to the ED from his [facility] due to redness and swelling of left lower leg; had reported he was released from alf 10 days ago and is unhoused. Pt laying on stretcher, asleep, wakes to touch. Pt has difficulty staying awake for our conversation. Pt reports he receives methadone, 115 mg daily. Pt reports he is currently using heroin/fentanyl, 1 bundle daily, IN; cocaine, IN, occasionally; denies other substances. Discussed recovery resources and supports, pt declines ATS. Pt provided with written resources including t/w contact information if needed. Pt denies questions or concerns for t/w.
--- NOTE | 2024-07-22 14:06 | PC.NURSE ---
This rn attempting to dc patient, patient states he has no where to go and its cold. This rn offered a list of homeless shelters. Patient refused narcan to go and states if we DC him he will hurt himself because he is homeless
--- NOTE | 2024-07-22 15:13 | PC.NURSE ---
belongings placed in [facility], second shelf
--- NOTE | 2024-07-22 15:21 | PC.NURSE ---
methadone has been held d/t patient condition. patient arousable to verbal stimuli however has continuously been falling asleep during conversations
[2024-07-22 20:18] VITALS: BP 126/78; PULSE 99; RESP 20; TEMP 37.9; O2SAT 97
[2024-07-22] MEDS: methADONE HCl 20 MG/2 ML ORAL.CONC 115 MG PO (21:01)
--- NOTE | 2024-07-22 22:48 | MHC.CARE ---
Pt was evaluated by the Care Team and will remain in the ED for a dual diagnosis bed search at this time. Section 12 was placed in chart and Dr. Lopez is in agreement with the disposition at this time. If placement is not secured within 24 hours, a mental status update will occur at that time to determine if he continues to meet criteria for a higher level of care.
--- NOTE | 2024-07-23 | ECG_ITS ---
Test Reason : Psych Blood Pressure : / mmHG Vent. Rate : 100 BPM Atrial Rate : 100 BPM P-R Int : 144 ms QRS Dur : 074 ms QT Int : 362 ms P-R-T Axes : 065 037 034 degrees QTc Int : 466 ms Normal sinus rhythm Normal ECG When compared with ECG of 05-NOV-2023 12:28, Premature supraventricular complexes are no longer Present Nonspecific T wave abnormality now evident in Inferior leads Referred By: Generic ED Physician Electronically Signed By:LAUREN CISNEROS MD
[2024-07-23 07:47] VITALS: BP 109/65; PULSE 100; RESP 14; TEMP 36.8; O2SAT 94
[2024-07-23] MEDS: Acetaminophen 325 MG TABLET 975 MG PO (08:52)
[2024-07-23] MEDS: Doxycycline Monohydrate 100 MG CAPSULE PO ×2 (09:03→20:23)
[2024-07-23] MEDS: methADONE HCl 20 MG/2 ML ORAL.CONC 115 MG PO (09:03)
[2024-07-23 09:32] LABS: Amphetamine Screen Urine Not Detected (Not Detect); Barbiturates, Urine Not Detected (Not Detect); Benzodiazepines Screen Urine POSITIVE (Not Detect); Buprenorphine Scr Not Detected (Not Detect); Cannabinoid Screen Urine POSITIVE (Not Detect); Cocaine Screen Urine POSITIVE (Not Detect); Fentanyl, urine POSITIVE (Not Detect); Methadone Screen, Urine Positive (Not Detect); Opiate Screen Urine POSITIVE (Not Detect); Oxycodone Screen Urine Not Detected (Not Detect); Phencyclidine Screen Urine Not Detected (Not Detect)
[2024-07-23 09:34] LABS: Appearance Urine Cloudy; Color Urine Dark Yellow; Glucose Urine UA Negative (Negative); Leukocyte Esterase Urine Negative (Negative); Nitrite Urine Negative (Negative); Specific Gravity - Urine >= 1.030 (1.005-1.025); UMIC TRIGGER UA YES; Urine Blood Negative (Negative); Urine Ketones 40 mg/dL (Negative); Urine Protein 30 (1+) mg/dL (Neg-Trace)
[2024-07-23 09:44] LABS: Bacteria Urine None Seen (None Seen); Hyaline Casts Urine 0-2 /LPF (0-2); Squamous Epithelial Cell Urine 0-2 /HPF (0-2); WBC Urine 0-5 /HPF (0-5)
[2024-07-23 09:46] LABS: RBC Urine 0-2 /HPF (0-2)
[2024-07-23 16:38] VITALS: BP 123/73; PULSE 112; RESP 16; TEMP 39.2; O2SAT 96
[2024-07-23] MEDS: Acetaminophen 325 MG TABLET 650 MG PO (16:51)
--- NOTE | 2024-07-23 16:51 | P.CONHOSP_ITS ---
History of Present Illness Data of Consult Service Date: 07/23/24 Primary Care Provider: [facility] HPI 39-year-old man admitted to M3 for psychiatric care. Medical consultation was placed due to left lower extremity reddened, hot to the touch, painful and swollen. He was noted to have fever and tachycardia, patient reports pain to the area, denies IV drug injection to the area. Venous Doppler ultrasound in the ER was negative for DVT. Patient was started on doxycycline while in the ER, blood pressures were negative from yesterday. Review of Systems 2 Review of Systems: Denies any recent fever chills or decrease in appetite respiratory denies shortness breath or cough cardiovascular denies chest pain gastrointestinal denies any dysphagia abdominal pain nausea vomiting or diarrhea genitourinary denies any dysuria frequency or hematuria musculoskeletal pain to left lower extremity neuropsych denies any weakness or seizures all other systems reviewed are negative [facility] Medical History (Updated 08/03/24 @ 12:47 by Chelsey Aguayo NP) MDD (major depressive disorder), recurrent episode Cellulitis Depression Polysubstance abuse Knee cartilage, torn, right ACL (anterior cruciate ligament) rupture Asthma Hepatitis C Hepatitis C antibody positive in blood Social History Household Members: None Household Members Other:: brother Housing: Homeless Do you presently have visiting nurse or other home services: No Unable to assess alcohol history related to: Unknown Alcohol intake: former Comment: pt on 5 min safety checks Patient Tobacco Use Status: Current everyday Tobacco user Tobacco use type: Cigarette Cigarette Packs Per Day: 10 Cigarettes Per Day: 10 Years Smoked: 15 Smoked in Last 30 Days: Yes e-Cigarette/Vaping Use: Never Used Patient Interested in Nicotine Replacement: Yes Patient Given Instructions on How to Stop Smoking: Yes Date Education Initiated: 07/23/24 Second Hand Smoke Exposure: No Use of substances other than those prescribed or required for medical reasons: Yes Substance Use Type: Amphetamines, Crack/Cocaine, Heroin, IV Drugs, Marijuana and Opiates Substance Use Frequency: Chronic Longstanding Last Used Substance: Just Prior to Admission Currently Displaying Signs/Symptoms of Drug Intoxication Withdrawal: No Any prior treatment program specific to substance use: Yes Have you been hit, kicked, punched, or otherwise hurt by someone within the past year? If so, by whom?: No Do you feel safe in your current relationship?: No Is there a partner from a previous relationship who is making you feel unsafe now?: No Are you made to feel afraid or neglected: No Advance Directives: No Advance Directives Information Provided: No Do you have thoughts of harming others: None Do you have a plan to hurt others: No Plan Recently lost weight without trying: Unsure How much weight loss: Unsure Eating poorly because of decreased appetite: No Nutrition screen score: 4 Nutrition Risks: No Nutritional Risk Poor oral hygiene: No service: No Sexual orientation: Straight/Heterosexual Meds Allergies Allergy/AdvReac Type Severity Reaction Status Date / Time mayonnaise [MAYONNAISE] Allergy Intermediate THROAT AND Verified 07/22/24 08:50 TONGUE ITCH quetiapine [From SEROQUEL] Allergy Intermediate DYSTONIA Verified 07/22/24 08:50 cat dander [CATS] Allergy Unknown WATERY Verified 07/22/24 08:50 EYES, SNEEZING dog dander [DOG] Allergy Unknown UNKNOWN Verified 07/22/24 08:50 paroxetine [From PAXIL] Allergy Unknown FLU LIKE Verified 07/22/24 08:50 SYMPTOMS penicillin V Allergy Unknown Unknown Verified 07/22/24 08:50 Penicillins [PENICILLINS] Allergy Unknown SWELLING Verified 07/22/24 08:50 SEAFOOD Allergy Severe DIFFICULTY Uncoded 07/22/24 08:50 BREATHING Active Medications: Current Medications Acetaminophen (Acetaminophen 325 Mg Tablet) 650 mg PO Q6H PRN PRN Reason: Headache/Pain Mild Scale (1-3) Al Hydroxide/Mg Hydroxide (Magnesium Hydrox/Alum Hydrox 30 Ml Oral.Susp) 30 ml PO Q6H PRN PRN Reason: Heartburn/Nausea Doxycycline Monohydrate (Doxycycline Monohydrate 100 Mg Capsule) 100 mg PO BID [facility] Stop: 07/30/24 08:59 Last Admin: 07/23/24 09:03 Dose: 100 mg Hydroxyzine HCl (Hydroxyzine Hcl 25 Mg Tablet) 25 mg PO Q6H PRN PRN Reason: Anxiety Magnesium Hydroxide (Milk Of Magnesia 30 Ml Oral.Susp) 30 ml PO DAILY PRN PRN Reason: Constipation Methadone HCl (Methadone Hcl 20 Mg/2 Ml Oral.Conc) 115 mg PO DAILY [facility] Last Admin: 07/23/24 09:03 Dose: 115 mg Nicotine (Nicotine 21 Mg Patch.Td24) 21 mg TRANSDERMA DAILY [facility] Nicotine Polacrilex (Nicotine Polacrilex 2 Mg Gum) 4 mg BUCCAL Q2H PRN PRN Reason: Nicotine Cravings Trazodone HCl (Trazodone Hcl 50 Mg Tablet) 50 mg PO BEDTIME MRX1 PRN PRN Reason: Insomnia Home Medications ?Medication ?Instructions ?Recorded ?Confirmed ?Last Taken ?Type methadone 10 mg/mL oral 115 mg PO DAILY 07/22/24 07/22/24 07/21/24 08:19 History concentrate (Methadone Intensol) Physical Exam 2 Vital Signs and Narrative: Vital Signs: Last Vital Signs Temp 102.6 F H 07/23/24 16:38 Pulse 112 H 07/23/24 16:38 Resp 16 07/23/24 16:38 BP 123/73 07/23/24 16:38 Pulse Ox 96 07/23/24 16:38 O2 Del Method Room Air 07/23/24 16:38 BMI result Body Mass Index 24.4 Appearing in acute distress from left lower extremity pain head is normocephalic atraumatic eyes pupils are PERRLA sclera is anicteric mouth throat mucous membranes are intact and moist neck is supple no lymphadenopathy, no JVD noted lung sounds are clear to auscultation heart regular rate rhythm, clear S1, S2 positive bowel sounds, abdomen is soft, nontender neuro patient is alert x3, no focal deficits Left lower extremity with edema, erythema Results Labs 07/26/24 09:54 07/26/24 09:54 Labs: Laboratory Results - last 24 hr 07/23/24 07/23/24 09:03 10:23 Urine Color Dark Yellow Urine Appearance Cloudy Urine pH 6.0 Ur Specific [place] >= 1.030 H Urine Protein 30 (1+) H Urine Glucose (UA) Negative Urine Ketones 40 Urine Blood Negative Urine Nitrite Negative Ur Leukocyte Esterase Negative Urine RBC 0-2 Urine WBC 0-5 Ur Squamous Epith Cells 0-2 Urine Bacteria None Seen Hyaline Casts 0-2 Urine Opiates Screen POSITIVE H Ur Buprenorphine Scrn Not Detected Ur Oxycodone Screen Not Detected Urine Methadone Screen Positive H Urine Fentanyl Screen POSITIVE H Ur Barbiturates Screen Not Detected Ur Phencyclidine Scrn Not Detected Ur Amphetamines Screen Not Detected U Benzodiazepines Scrn POSITIVE H Urine Cocaine Screen POSITIVE H U Marijuana (THC) Screen POSITIVE H Assessment and Plan (1) Cellulitis: Status: Acute Plan 39-year-old man admitted to M3 for psychiatric care, hospitalist consultation for left lower extremity redness Left lower extremity cellulitis Already started on doxycycline in the ED, continue Venous Doppler ultrasound negative for DVT Blood cultures negative after 24 hours Treat fever with Tylenol and ibuprofen Repeat blood culture, lactic acid, CBC, BMP Elevate extremity Medical consultation complete will sign off, contact hospitalist service for any further questions or need for assistance
[2024-07-23] MEDS: Ibuprofen 400 MG TABLET PO (17:00)
--- NOTE | 2024-07-23 18:03 | PC.NURSE ---
07/23/24 temp rechecked orally it was 103. Lizzette jay NP aware.
[2024-07-23 18:27] LABS: Hematocrit 35.8 % (42.0-52.0); Hemoglobin 12.3 g/dl (14.0-18.0); Mean Corpuscular HGB Conc 34.4 g/dl (31.0-36.0); Mean Corpuscular Hemoglobin 29.8 pg (27.0-33.0); Mean Corpuscular Volume 86.7 fL (80.0-98.0); Mean Platelet Volume 10.2 fL (9.4-12.4); Platelet Count 163 X10*3/uL (160-400); Red Blood Count 4.13 X10*6/uL (4.60-5.80); Red Cell Distribution Width 11.9 % (11.0-16.0); White Blood Count 10.1 X10*3/uL (4.8-10.8)
[2024-07-23 18:38] LABS: Lactic Acid 1.1 mmol/L (0.5-2.0)
[2024-07-23 18:43] LABS: Anion Gap 9 (12-20); Blood Urea Nitrogen 10 mg/dL (9-16); Calcium 8.1 mg/dL (8.4-10.2); Carbon Dioxide 29 mmol/L (22-29); Chloride 102 mmol/L (96-108); Creatinine Clr Calc Pharmacy 121.9; Estimated Glomerular Filt Rate > 60; Glucose Random 139 mg/dL (60-115); Potassium 3.4 mmol/L (3.3-5.1); Sodium 137 mmol/L (135-145)
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
--- NOTE | 2024-07-23 18:59 | PC.NURSE ---
07/23/24 Lizzette Robin notified about temp of 102.6 and LLL swelling, bruising, redness and pain,
[2024-07-23 20:10] VITALS: TEMP 37.3
[2024-07-23 20:11] VITALS: BP 107/56; PULSE 85; RESP 16; TEMP 38.7; O2SAT 94
[2024-07-23] MEDS: traZODone HCL 50 MG TABLET PO (20:23)
[2024-07-24 01:23] VITALS: TEMP 37.4
[2024-07-24 07:49] VITALS: BP 117/68; PULSE 96; RESP 16; O2SAT 98
[2024-07-24] MEDS: methADONE HCl 20 MG/2 ML ORAL.CONC 115 MG PO (08:44)
[2024-07-24] MEDS: Doxycycline Monohydrate 100 MG CAPSULE PO ×2 (08:45→20:33)
[2024-07-24] MEDS: Ibuprofen 400 MG TABLET PO (08:45)
[2024-07-24] MEDS: Acetaminophen 325 MG TABLET 650 MG PO (08:46)
[2024-07-24 08:55] VITALS: TEMP 38.9
[2024-07-24 10:46] VITALS: TEMP 36.4
--- NOTE | 2024-07-24 13:44 | MHC.CLN ---
NUTRITION CONSULT FOR REPORTED POOR APPETITE. VISITED PATIENT IN HIS ROOM. STATED THAT HE DID NOT EAT MUCH FOR LUNCH SINCE NO UTENSILS. PATIENT WITH SAFETY TRAY AND PAPER SPOON. SHOWED HIM SPOON/HOW TO HOLD. WOULD LIKE ENSURE SUPPLEMENT. ADDING ENSURE TID TO PROVIDE 1050 KCALS, 60 G PROTEIN. ANTICIPATE IMPROVED PO IN CONTROLLED ENVIRONMENT.
[2024-07-24] MEDS: FLUoxetine HCl 20 MG CAPSULE PO (14:25)
[2024-07-24] MEDS: Ibuprofen 800 MG TABLET PO ×2 (14:34→20:33)
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
[2024-07-24 20:00] VITALS: BP 103/60; PULSE 70; RESP 16; TEMP 37; O2SAT 97
[2024-07-24] MEDS: traZODone HCL 50 MG TABLET PO (20:33)
[2024-07-25 07:49] VITALS: BP 100/58; PULSE 84; RESP 16; TEMP 37.1; O2SAT 97
[2024-07-25] MEDS: methADONE HCl 20 MG/2 ML ORAL.CONC 115 MG PO (07:56)
[2024-07-25] MEDS: FLUoxetine HCl 20 MG CAPSULE PO (08:37)
[2024-07-25] MEDS: Doxycycline Monohydrate 100 MG CAPSULE PO ×2 (08:38→20:10)
[2024-07-25] MEDS: Ibuprofen 800 MG TABLET PO ×2 (08:38→20:10)
--- NOTE | 2024-07-25 11:52 | HO.PSYCHPN ---
Subjective Subjective Date of Service: 07/25/24 Reason For Visit: SI Interim History: calm, cooperative. noted to have right leg resting on top of left, indicating left leg has become less painful. patient acknowledges mild improvement in Sx. still had fever last night and reporting poor sleep, states he is trying to nap now, appears tired. denies withdrawal Sx. no other complaints or requests. per staff, dep/anx. flat, no groups. +meds. 9/10 leg pain. in bed all shift. slept 8 hours. Mental Status Exam Mental Status Exam Narrative: lying in bed in left lateral decubitus position, right leg resting atop left.. hospital gown, c/o leg pain. cooperative. no PMA/PMR. thoughts linear and logical. affect constricted, normo-intense, non-labile. mood not assessed. no SI/SIBI/HI/AVH expressed. Diagnostics Vital Signs (24Hr): Vital Signs - 24 hr 07/24/24 20:00 07/25/24 07:49 Temperature 98.6 F 98.7 F Pulse Rate 70 84 Respiratory Rate 16 16 Blood Pressure 103/60 100/58 L Pulse Oximetry 97 97 Oxygen Delivery Method Room Air Room Air BMI result Body Mass Index 24.4 Labs 07/23/24 18:10 07/23/24 18:07 Labs: Laboratory Results - last 48 hr 07/23/24 07/23/24 07/23/24 18:07 18:08 18:10 WBC 10.1 RBC 4.13 L Hgb 12.3 L Hct 35.8 L MCV 86.7 MCH 29.8 MCHC 34.4 RDW 11.9 Plt Count 163 MPV 10.2 Absolute Nucleated RBC 0.000 Nucleated RBC % (auto) 0.0 Sodium 137 Potassium 3.4 Chloride 102 Carbon Dioxide 29 Anion Gap 9 L BUN 10 Creatinine 0.84 Estim Creat Clear Calc 121.9 Estimated GFR > 60 Random Glucose 139 H Lactic Acid 1.1 Calcium 8.1 L D Imaging Radiology Impressions: ITS Impressions Venous Duplex 07/22/24 11:11 IMPRESSION: No acute deep venous thrombosis involving the left lower extremity. Electronically signed by: Harrison Cedeno MD 07/22/2024 11:53 AM [facility] Medications Medications Current Medications Acetaminophen (Acetaminophen 325 Mg Tablet) 650 mg PO Q6H PRN PRN Reason: Headache/Pain Mild Scale (1-3) Last Admin: 07/24/24 08:46 Dose: 650 mg Al Hydroxide/Mg Hydroxide (Magnesium Hydrox/Alum Hydrox 30 Ml Oral.Susp) 30 ml PO Q6H PRN PRN Reason: Heartburn/Nausea Doxycycline Monohydrate (Doxycycline Monohydrate 100 Mg Capsule) 100 mg PO BID [facility] Stop: 07/30/24 08:59 Last Admin: 07/25/24 08:38 Dose: 100 mg Fluoxetine HCl (Fluoxetine Hcl 20 Mg Capsule) 20 mg PO DAILY [facility] Last Admin: 07/25/24 08:37 Dose: 20 mg Hydroxyzine HCl (Hydroxyzine Hcl 25 Mg Tablet) 25 mg PO Q6H PRN PRN Reason: Anxiety Ibuprofen (Ibuprofen 800 Mg Tablet) 800 mg PO Q6H PRN PRN Reason: Fever >101 or pain 0-10 Last Admin: 07/25/24 08:38 Dose: 800 mg Magnesium Hydroxide (Milk Of Magnesia 30 Ml Oral.Susp) 30 ml PO DAILY PRN PRN Reason: Constipation Methadone HCl (Methadone Hcl 20 Mg/2 Ml Oral.Conc) 115 mg PO DAILY [facility] Last Admin: 07/25/24 07:56 Dose: 115 mg Nicotine (Nicotine 21 Mg Patch.Td24) 21 mg TRANSDERMA DAILY [facility] Last Admin: 07/25/24 08:39 Dose: Not Given Nicotine Polacrilex (Nicotine Polacrilex 2 Mg Gum) 4 mg BUCCAL Q2H PRN PRN Reason: Nicotine Cravings Trazodone HCl (Trazodone Hcl 50 Mg Tablet) 50 mg PO BEDTIME MRX1 PRN PRN Reason: Insomnia Last Admin: 07/24/24 20:33 Dose: 50 mg Allergies Allergies Allergy/AdvReac Type Severity Reaction Status Date / Time mayonnaise [MAYONNAISE] Allergy Intermediate THROAT AND Verified 07/22/24 08:50 TONGUE ITCH quetiapine [From SEROQUEL] Allergy Intermediate DYSTONIA Verified 07/22/24 08:50 cat dander [CATS] Allergy Unknown WATERY Verified 07/22/24 08:50 EYES, SNEEZING dog dander [DOG] Allergy Unknown UNKNOWN Verified 07/22/24 08:50 paroxetine [From PAXIL] Allergy Unknown FLU LIKE Verified 07/22/24 08:50 SYMPTOMS penicillin V Allergy Unknown Unknown Verified 07/22/24 08:50 Penicillins [PENICILLINS] Allergy Unknown SWELLING Verified 07/22/24 08:50 SEAFOOD Allergy Severe DIFFICULTY Uncoded 07/22/24 08:50 BREATHING Assessment & Plan Assessment & Plan (1) Cellulitis: Status: Acute Code(s): L03.90 - Cellulitis, unspecified (2) Benzodiazepine abuse: Status: Acute Code(s): F13.10 - Sedative, hypnotic or anxiolytic abuse, uncomplicated (3) Cocaine abuse: Status: Acute Code(s): F14.10 - Cocaine abuse, uncomplicated (4) Substance induced mood disorder: Status: Acute Code(s): F19.94 - Other psychoactive substance use, unspecified with psychoactive substance-induced mood disorder (5) Opioid use disorder, moderate, dependence: Status: Acute Code(s): F11.20 - Opioid dependence, uncomplicated (6) PTSD (post-traumatic stress disorder): Status: Acute Code(s): F43.10 - Post-traumatic stress disorder, unspecified Plan 07/24: pt denies withdrawal Sx. reports he has not been using enough to be in withdrawal. most concerned about his leg pain. continue doxy for cellulitis, comfort meds otherwise. start prozac for depression and anxiety. 07/25: continues to deny withdrawal Sx. getting prozac. mild improvement in left leg pain, no fever this morning. continue current mgmt. Reason for continued inpatient stay Substantial Risk for: inability to function and rapid decompensation Time Spent With Patient Time: Total time managing care of this patient today __25__ minutes.
[2024-07-25] MEDS: Acetaminophen 325 MG TABLET 650 MG PO (19:30)
[2024-07-25 20:00] VITALS: BP 100/60; PULSE 92; RESP 16; TEMP 36.6; O2SAT 96
[2024-07-25] MEDS: traZODone HCL 50 MG TABLET PO (20:10)
[2024-07-26 07:35] VITALS: BP 107/58; PULSE 80; RESP 14; TEMP 37.9; O2SAT 98
[2024-07-26] MEDS: methADONE HCl 20 MG/2 ML ORAL.CONC 115 MG PO (08:13)
--- NOTE | 2024-07-26 08:54 | HO.PM.IMCN ---
History of Present Illness Data of Consult Service Date: 07/26/24 Requesting physician: Julian nAaya Primary Care Provider: [facility] HPI Reason for consult: L calf cellulitis Patient is a 39-year-old male with a past medical history significant for polysubstance abuse, mild intermittent asthma and PTSD admitted to adult Psychiatry for SI, consulted for worsening left lower extremity cellulitis on the posterior calf. He has been treated with doxycycline BID starting on 07/22/24, but reports increasing pain and difficulty with ambulation now. At rest he rates the pain a 2/10 however 10/10 with ambulating. He does not feel feverish and denies any nausea, vomiting or chills. Vitals have been stable. History of substance use disorder. No prior hx of abscesses. Review of Systems Constitutional: Constitutional: Denies chills, Denies fever(s) and Denies headache(s) Eyes: Eyes: Denies change in vision ENT: Denies headache(s) Cardiovascular: Cardiovascular: Denies chest pain, Denies rapid heart rate and Denies dyspnea Respiratory: Respiratory: Denies dyspnea Gastrointestinal: Gastrointestinal: Denies nausea and Denies vomiting Integumentary/Breasts: Skin/Breast: Reports as per HPI Neurologic: Denies confusion and Denies headache(s) Psychiatric: Psychiatric: Denies confusion [facility] Medical History (Updated 07/26/24 @ 09:13 by Jaclyn Ibanez PA-C) Cellulitis MDD (major depressive disorder), recurrent episode Depression Polysubstance abuse Knee cartilage, torn, right ACL (anterior cruciate ligament) rupture Asthma Hepatitis C Hepatitis C antibody positive in blood Functional capacity: independent ambulation Social History Household Members: None Household Members Other:: brother Housing: Homeless Do you presently have visiting nurse or other home services: No Unable to assess alcohol history related to: Unknown Alcohol intake: former Patient Tobacco Use Status: Current everyday Tobacco user Tobacco use type: Cigarette Cigarette Packs Per Day: 10 Cigarettes Per Day: 10 Years Smoked: 15 Smoked in Last 30 Days: Yes e-Cigarette/Vaping Use: Never Used Patient Interested in Nicotine Replacement: Yes Patient Given Instructions on How to Stop Smoking: Yes Date Education Initiated: 07/23/24 Second Hand Smoke Exposure: No Use of substances other than those prescribed or required for medical reasons: Yes Substance Use Type: Amphetamines, Crack/Cocaine, Heroin, IV Drugs, Marijuana and Opiates Substance Use Frequency: Chronic Longstanding Last Used Substance: Just Prior to Admission Currently Displaying Signs/Symptoms of Drug Intoxication Withdrawal: No Any prior treatment program specific to substance use: Yes Have you been hit, kicked, punched, or otherwise hurt by someone within the past year? If so, by whom?: No Do you feel safe in your current relationship?: No Is there a partner from a previous relationship who is making you feel unsafe now?: No Are you made to feel afraid or neglected: No Advance Directives: No Advance Directives Information Provided: No Do you have thoughts of harming others: None Do you have a plan to hurt others: No Plan Recently lost weight without trying: Unsure How much weight loss: Unsure Eating poorly because of decreased appetite: No Nutrition screen score: 4 Nutrition Risks: No Nutritional Risk Poor oral hygiene: No service: No Sexual orientation: Straight/Heterosexual Meds Allergies Allergy/AdvReac Type Severity Reaction Status Date / Time mayonnaise [MAYONNAISE] Allergy Intermediate THROAT AND Verified 07/22/24 08:50 TONGUE ITCH quetiapine [From SEROQUEL] Allergy Intermediate DYSTONIA Verified 07/22/24 08:50 cat dander [CATS] Allergy Unknown WATERY Verified 07/22/24 08:50 EYES, SNEEZING dog dander [DOG] Allergy Unknown UNKNOWN Verified 07/22/24 08:50 paroxetine [From PAXIL] Allergy Unknown FLU LIKE Verified 07/22/24 08:50 SYMPTOMS penicillin V Allergy Unknown Unknown Verified 07/22/24 08:50 Penicillins [PENICILLINS] Allergy Unknown SWELLING Verified 07/22/24 08:50 SEAFOOD Allergy Severe DIFFICULTY Uncoded 07/22/24 08:50 BREATHING Active Medications: Current Medications Acetaminophen (Acetaminophen 325 Mg Tablet) 650 mg PO Q6H PRN PRN Reason: Headache/Pain Mild Scale (1-3) Last Admin: 07/25/24 19:30 Dose: 650 mg Al Hydroxide/Mg Hydroxide (Magnesium Hydrox/Alum Hydrox 30 Ml Oral.Susp) 30 ml PO Q6H PRN PRN Reason: Heartburn/Nausea Doxycycline Monohydrate (Doxycycline Monohydrate 100 Mg Capsule) 100 mg PO BID [facility] Stop: 07/30/24 08:59 Last Admin: 07/25/24 20:10 Dose: 100 mg Fluoxetine HCl (Fluoxetine Hcl 20 Mg Capsule) 20 mg PO DAILY [facility] Last Admin: 07/25/24 08:37 Dose: 20 mg Hydroxyzine HCl (Hydroxyzine Hcl 25 Mg Tablet) 25 mg PO Q6H PRN PRN Reason: Anxiety Ibuprofen (Ibuprofen 800 Mg Tablet) 800 mg PO Q6H PRN PRN Reason: Fever >101 or pain 0-10 Last Admin: 07/25/24 20:10 Dose: 800 mg Magnesium Hydroxide (Milk Of Magnesia 30 Ml Oral.Susp) 30 ml PO DAILY PRN PRN Reason: Constipation Methadone HCl (Methadone Hcl 20 Mg/2 Ml Oral.Conc) 115 mg PO DAILY [facility] Last Admin: 07/26/24 08:13 Dose: 115 mg Nicotine (Nicotine 21 Mg Patch.Td24) 21 mg TRANSDERMA DAILY [facility] Last Admin: 07/25/24 08:39 Dose: Not Given Nicotine Polacrilex (Nicotine Polacrilex 2 Mg Gum) 4 mg BUCCAL Q2H PRN PRN Reason: Nicotine Cravings Trazodone HCl (Trazodone Hcl 50 Mg Tablet) 50 mg PO BEDTIME MRX1 PRN PRN Reason: Insomnia Last Admin: 07/25/24 20:10 Dose: 50 mg Home Medications ?Medication ?Instructions ?Recorded ?Confirmed ?Last Taken ?Type methadone 10 mg/mL oral 115 mg PO DAILY 07/22/24 07/22/24 07/21/24 08:19 History concentrate (Methadone Intensol) Physical Exam Vital Signs and Narrative: Vital Signs: Last Vital Signs Temp 100.3 F 07/26/24 07:35 Pulse 80 07/26/24 07:35 Resp 14 07/26/24 07:35 BP 107/58 L 07/26/24 07:35 Pulse Ox 98 07/26/24 07:35 O2 Del Method Room Air 07/26/24 07:35 BMI result Body Mass Index 24.4 General: AOx3, no acute distress, laying in bed Skin: Warm, dry Extremities: erythema and induaration L calf, tender to touch, no fluctuance, no significant warmthm when compared to RLE. specific area of tenderness in the distal region of the area Psych: Appropriate affect Const: General: No confusion Orientation/consciousness: No confusion Neuro: General: No confusion Results Labs 07/26/24 09:54 11/22/24 09:54 Assessment and Plan (1) Cellulitis: Status: Acute (2) Abscess: Status: Acute Plan Patient is a 39-year-old male admitted adult Psychiatry with left lower extremity cellulitis on the posterior calf. He has been treated with doxycycline for the past few days but reports increasing pain and difficulty with ambulation. On exam large indurated area with more main distally. LLE cellulitis/abscess - continue doxycycline - check CBC, BMP, lactic, blood cultures x2 - recent venous dopplar negative for DVT - treat fever and pain with tylenol and ibuprofen - elevate leg - repeat venous duplex and add soft tissue US to assess for abscess - surgical consult for possible I&D Thank you for allowing me to participate in the pt's care. Will continue to follow. Please contact the medical team if any questions or concerns.
[2024-07-26] MEDS: Acetaminophen 325 MG TABLET 650 MG PO ×2 (09:02→21:46)
[2024-07-26] MEDS: Ibuprofen 800 MG TABLET PO ×2 (09:02→21:46)
[2024-07-26] MEDS: Doxycycline Monohydrate 100 MG CAPSULE PO ×2 (09:02→21:46)
[2024-07-26] MEDS: FLUoxetine HCl 20 MG CAPSULE PO (09:02)
[2024-07-26 10:06] LABS: MANUAL DIFF FLAG NO
[2024-07-26 10:11] LABS: Basophils Percent Auto 0.3 % (0-2); Eosinophils Absolute Auto 0.4 X10*3/uL (0.0-0.4); Eosinophils Percent Auto 5.4 % (0-4); Hematocrit 32.8 % (42.0-52.0); Hemoglobin 10.9 g/dl (14.0-18.0); Imm Gran Abs Auto 0.04 X10*3/uL (0.00-0.03); Imm Gran Pct Auto 0.5 % (0.0-0.4); Lymphocytes Absolute Auto 0.7 X10*3/uL (1.2-4.9); Lymphocytes Percent Auto 9.4 % (20-40); Mean Corpuscular HGB Conc 33.2 g/dl (31.0-36.0); Mean Corpuscular Volume 87.2 fL (80.0-98.0); Mean Platelet Volume 10.2 fL (9.4-12.4); Monocytes Absolute Auto 0.4 X10*3/uL (0.1-1.2); Monocytes Percent Auto 5.4 % (2-11); Platelet Count 195 X10*3/uL (160-400); Red Blood Count 3.76 X10*6/uL (4.60-5.80); Red Cell Distribution Width 12.2 % (11.0-16.0); White Blood Count 7.6 X10*3/uL (4.8-10.8)
[2024-07-26 10:19] LABS: Lactic Acid 1.4 mmol/L (0.5-2.0)
[2024-07-26 10:27] LABS: Anion Gap 10 (12-20); Blood Urea Nitrogen 11 mg/dL (9-16); Calcium 8.4 mg/dL (8.4-10.2); Carbon Dioxide 30 mmol/L (22-29); Chloride 104 mmol/L (96-108); Creatinine Clr Calc Pharmacy 132.9; Estimated Glomerular Filt Rate > 60; Glucose Random 155 mg/dL (60-115); Potassium 4.3 mmol/L (3.3-5.1); Sodium 140 mmol/L (135-145)
--- NOTE | 2024-07-26 13:08 | P.PNPSI_ITS ---
Subjective Subjective Date of Service: 07/26/24 Reason For Visit: SI Interim History: c/o leg pain. informed of likely abscess Dx and need for I&D. no other complaints or requests. per staff, in bed. LLE edema. ibuprofen. anxious. afebrile. slept 8 hours. no groups. +meds. Mental Status Exam Mental Status Exam Narrative: lying in bed supine, left leg resting on a pillow. hospital gown, c/o leg pain. cooperative. no PMA/PMR. thoughts linear and logical. affect constricted, normo-intense, non-labile. mood not assessed. no SI/SIBI/HI/AVH expressed. Diagnostics Vital Signs (24Hr): Vital Signs - 24 hr 07/25/24 20:00 07/26/24 07:35 Temperature 97.8 F 100.3 F Pulse Rate 92 80 Respiratory Rate 16 14 Blood Pressure 100/60 107/58 L Pulse Oximetry 96 98 Oxygen Delivery Method Room Air Room Air BMI result Body Mass Index 24.4 Labs 07/26/24 09:54 07/26/24 09:54 Labs: Laboratory Results - last 48 hr 07/26/24 07/26/24 09:50 09:54 WBC 7.6 RBC 3.76 L Hgb 10.9 L Hct 32.8 L MCV 87.2 MCH 29.0 MCHC 33.2 RDW 12.2 Plt Count 195 MPV 10.2 Immature Gran % (Auto) 0.5 H Neut % (Auto) 79.0 H Lymph % (Auto) 9.4 L Tift % (Auto) 5.4 Eos % (Auto) 5.4 H Baso % (Auto) 0.3 Lymph # (Auto) 0.7 L Tift # (Auto) 0.4 Eos # (Auto) 0.4 Baso # (Auto) 0.0 Abs Immat Gran (auto) 0.04 H Absolute Neuts (auto) 6.0 Absolute Nucleated RBC 0.000 Nucleated RBC % (auto) 0.0 Sodium 140 Potassium 4.3 D Chloride 104 Carbon Dioxide 30 H Anion Gap 10 L BUN 11 Creatinine 0.77 Estim Creat Clear Calc 132.9 Estimated GFR > 60 Random Glucose 155 H Lactic Acid 1.4 Calcium 8.4 Imaging Radiology Impressions: ITS Impressions Venous Duplex 07/22/24 11:11 IMPRESSION: No acute deep venous thrombosis involving the left lower extremity. Electronically signed by: Harrison Cedeno MD 07/22/2024 11:53 AM [facility] [place], [place] Medications Medications Current Medications Acetaminophen (Acetaminophen 325 Mg Tablet) 650 mg PO Q6H PRN PRN Reason: Headache/Pain Mild Scale (1-3) Last Admin: 07/26/24 09:02 Dose: 650 mg Al Hydroxide/Mg Hydroxide (Magnesium Hydrox/Alum Hydrox 30 Ml Oral.Susp) 30 ml PO Q6H PRN PRN Reason: Heartburn/Nausea Doxycycline Monohydrate (Doxycycline Monohydrate 100 Mg Capsule) 100 mg PO BID [facility] Stop: 07/30/24 08:59 Last Admin: 07/26/24 09:02 Dose: 100 mg Fluoxetine HCl (Fluoxetine Hcl 20 Mg Capsule) 20 mg PO DAILY [facility] Last Admin: 07/26/24 09:02 Dose: 20 mg Hydroxyzine HCl (Hydroxyzine Hcl 25 Mg Tablet) 25 mg PO Q6H PRN PRN Reason: Anxiety Ibuprofen (Ibuprofen 800 Mg Tablet) 800 mg PO Q6H PRN PRN Reason: Fever >101 or pain 0-10 Last Admin: 07/26/24 09:02 Dose: 800 mg Magnesium Hydroxide (Milk Of Magnesia 30 Ml Oral.Susp) 30 ml PO DAILY PRN PRN Reason: Constipation Methadone HCl (Methadone Hcl 20 Mg/2 Ml Oral.Conc) 115 mg PO DAILY [facility] Last Admin: 07/26/24 08:13 Dose: 115 mg Nicotine (Nicotine 21 Mg Patch.Td24) 21 mg TRANSDERMA DAILY [facility] Last Admin: 07/26/24 09:03 Dose: Not Given Nicotine Polacrilex (Nicotine Polacrilex 2 Mg Gum) 4 mg BUCCAL Q2H PRN PRN Reason: Nicotine Cravings Trazodone HCl (Trazodone Hcl 50 Mg Tablet) 50 mg PO BEDTIME MRX1 PRN PRN Reason: Insomnia Last Admin: 07/25/24 20:10 Dose: 50 mg Allergies Allergies Allergy/AdvReac Type Severity Reaction Status Date / Time mayonnaise [MAYONNAISE] Allergy Intermediate THROAT AND Verified 07/22/24 08:50 TONGUE ITCH quetiapine [From SEROQUEL] Allergy Intermediate DYSTONIA Verified 07/22/24 08:50 cat dander [CATS] Allergy Unknown WATERY Verified 07/22/24 08:50 EYES, SNEEZING dog dander [DOG] Allergy Unknown UNKNOWN Verified 07/22/24 08:50 paroxetine [From PAXIL] Allergy Unknown FLU LIKE Verified 07/22/24 08:50 SYMPTOMS penicillin V Allergy Unknown Unknown Verified 07/22/24 08:50 Penicillins [PENICILLINS] Allergy Unknown SWELLING Verified 07/22/24 08:50 SEAFOOD Allergy Severe DIFFICULTY Uncoded 07/22/24 08:50 BREATHING Assessment & Plan Assessment & Plan (1) Cellulitis: Status: Acute Code(s): L03.90 - Cellulitis, unspecified (2) Abscess: Status: Acute Code(s): L02.91 - Cutaneous abscess, unspecified Assessment and Plan: Patient is a 39-year-old male admitted adult Psychiatry with left lower extremity cellulitis on the posterior calf. He has been treated with doxycycline for the past few days but reports increasing pain and difficulty with ambulation. On exam large indurated area with more main distally. LLE cellulitis/abscess - continue doxycycline - check CBC, BMP, lactic, blood cultures x2 - recent venous dopplar negative for DVT - treat fever and pain with tylenol and ibuprofen - elevate leg - repeat venous duplex and add soft tissue US to assess for abscess - surgical consult for possible I&D (3) Cocaine abuse: Status: Acute Code(s): F14.10 - Cocaine abuse, uncomplicated (4) Substance induced mood disorder: Status: Acute Code(s): F19.94 - Other psychoactive substance use, unspecified with psychoactive substance-induced mood disorder (5) Opioid use disorder, moderate, dependence: Status: Acute Code(s): F11.20 - Opioid dependence, uncomplicated (6) PTSD (post-traumatic stress disorder): Status: Acute Code(s): F43.10 - Post-traumatic stress disorder, unspecified Plan 07/24: pt denies withdrawal Sx. reports he has not been using enough to be in withdrawal. most concerned about his leg pain. continue doxy for cellulitis, comfort meds otherwise. start prozac for depression and anxiety. 07/25: continues to deny withdrawal Sx. getting prozac. mild improvement in left leg pain, no fever this morning. continue current mgmt. 07/26: much exacerbated leg pain today, crying and holding leg. medical consult suspects abscess; surgical consult placed and pending. otherwise remains as per prior re mental status. continue current mgmt. Reason for continued inpatient stay Substantial Risk for: harm to self and inability to function Time Spent With Patient Time: Total time managing care of this patient today __35__ minutes.
[2024-07-26 20:00] VITALS: BP 101/67; PULSE 69; RESP 16; TEMP 36.9; O2SAT 96
[2024-07-26] MEDS: traZODone HCL 50 MG TABLET PO (21:46)
[2024-07-26] MEDS: hydrOXYzine HCL 25 MG TABLET PO (21:46)
[2024-07-27 07:45] VITALS: BP 104/59; PULSE 81; RESP 16; TEMP 36.7; O2SAT 96
[2024-07-27] MEDS: methADONE HCl 20 MG/2 ML ORAL.CONC 115 MG PO (08:33)
[2024-07-27] MEDS: FLUoxetine HCl 20 MG CAPSULE PO (08:34)
[2024-07-27] MEDS: Doxycycline Monohydrate 100 MG CAPSULE PO (08:34)
[2024-07-27] MEDS: Acetaminophen 325 MG TABLET 650 MG PO ×3 (08:49→22:56)
[2024-07-27] MEDS: Ibuprofen 800 MG TABLET PO ×3 (08:49→22:56)
[2024-07-27] MEDS: traMADoL HCL 50 MG TABLET PO (13:06)
[2024-07-27] MEDS: polyethylene glycoL 3350 17 GM POWD.PACK PO (13:24)
--- NOTE | 2024-07-27 13:34 | P.CONGS_ITS ---
History of Present Illness Consult details Consult date: 07/27/24 Narrative: Patient was a 39-year-old female currently admitted as an inpatient psychiatric floor who was also found to have a left proximal calf cellulitis/infection. Patient has had this he thinks several days time. He denies any trauma to the area. He denies any IV injection sites here. He has never had such infections before that he can recall. Chart was reviewed and patient evaluate. Patient had 2 Doppler ultrasounds of the area which demonstrates only soft tissue edematous changes but no evidence of any collections or abscesses or DVTs. [facility] Past Medical History Medical History (Updated 07/26/24 @ 09:13 by Jaclyn Ibanez PA-C) Cellulitis MDD (major depressive disorder), recurrent episode Depression Polysubstance abuse Knee cartilage, torn, right ACL (anterior cruciate ligament) rupture Asthma Hepatitis C Hepatitis C antibody positive in blood Social History Social History Household Members: None Household Members Other:: brother Housing: Homeless Do you presently have visiting nurse or other home services: No Unable to assess alcohol history related to: Unknown Alcohol intake: former Patient Tobacco Use Status: Current everyday Tobacco user Tobacco use type: Cigarette Cigarette Packs Per Day: 10 Cigarettes Per Day: 10 Years Smoked: 15 Smoked in Last 30 Days: Yes e-Cigarette/Vaping Use: Never Used Patient Interested in Nicotine Replacement: Yes Patient Given Instructions on How to Stop Smoking: Yes Date Education Initiated: 07/23/24 Second Hand Smoke Exposure: No Use of substances other than those prescribed or required for medical reasons: Yes Substance Use Type: Amphetamines, Crack/Cocaine, Heroin, IV Drugs, Marijuana and Opiates Substance Use Frequency: Chronic Longstanding Last Used Substance: Just Prior to Admission Currently Displaying Signs/Symptoms of Drug Intoxication Withdrawal: No Any prior treatment program specific to substance use: Yes Have you been hit, kicked, punched, or otherwise hurt by someone within the past year? If so, by whom?: No Do you feel safe in your current relationship?: No Is there a partner from a previous relationship who is making you feel unsafe now?: No Are you made to feel afraid or neglected: No Advance Directives: No Advance Directives Information Provided: No Do you have thoughts of harming others: None Do you have a plan to hurt others: No Plan Recently lost weight without trying: Unsure How much weight loss: Unsure Eating poorly because of decreased appetite: No Nutrition screen score: 4 Nutrition Risks: No Nutritional Risk Poor oral hygiene: No service: No Sexual orientation: Straight/Heterosexual Meds Allergies Allergy/AdvReac Type Severity Reaction Status Date / Time mayonnaise [MAYONNAISE] Allergy Intermediate THROAT AND Verified 07/22/24 08:50 TONGUE ITCH quetiapine [From SEROQUEL] Allergy Intermediate DYSTONIA Verified 07/22/24 08:50 cat dander [CATS] Allergy Unknown WATERY Verified 07/22/24 08:50 EYES, SNEEZING dog dander [DOG] Allergy Unknown UNKNOWN Verified 07/22/24 08:50 paroxetine [From PAXIL] Allergy Unknown FLU LIKE Verified 07/22/24 08:50 SYMPTOMS penicillin V Allergy Unknown Unknown Verified 07/22/24 08:50 Penicillins [PENICILLINS] Allergy Unknown SWELLING Verified 07/22/24 08:50 SEAFOOD Allergy Severe DIFFICULTY Uncoded 07/22/24 08:50 BREATHING Active Medications: Current Medications Acetaminophen (Acetaminophen 325 Mg Tablet) 650 mg PO Q6H PRN PRN Reason: Headache/Pain Mild Scale (1-3) Last Admin: 07/27/24 08:49 Dose: 650 mg Al Hydroxide/Mg Hydroxide (Magnesium Hydrox/Alum Hydrox 30 Ml Oral.Susp) 30 ml PO Q6H PRN PRN Reason: Heartburn/Nausea Doxycycline Monohydrate (Doxycycline Monohydrate 100 Mg Capsule) 100 mg PO BID [facility] Stop: 07/30/24 08:59 Last Admin: 07/27/24 08:34 Dose: 100 mg Fluoxetine HCl (Fluoxetine Hcl 20 Mg Capsule) 20 mg PO DAILY [facility] Last Admin: 07/27/24 08:34 Dose: 20 mg Hydroxyzine HCl (Hydroxyzine Hcl 25 Mg Tablet) 25 mg PO Q6H PRN PRN Reason: Anxiety Last Admin: 07/26/24 21:46 Dose: 25 mg Ibuprofen (Ibuprofen 800 Mg Tablet) 800 mg PO Q6H PRN PRN Reason: Fever >101 or pain 0-10 Last Admin: 07/27/24 08:49 Dose: 800 mg Magnesium Hydroxide (Milk Of Magnesia 30 Ml Oral.Susp) 30 ml PO DAILY PRN PRN Reason: Constipation Methadone HCl (Methadone Hcl 20 Mg/2 Ml Oral.Conc) 115 mg PO DAILY [facility] Last Admin: 07/27/24 08:33 Dose: 115 mg Nicotine (Nicotine 21 Mg Patch.Td24) 21 mg TRANSDERMA DAILY [facility] Last Admin: 07/27/24 08:34 Dose: Not Given Nicotine Polacrilex (Nicotine Polacrilex 2 Mg Gum) 4 mg BUCCAL Q2H PRN PRN Reason: Nicotine Cravings Polyethylene Glycol (Polyethylene Glycol 3350 17 Gm Powd.Pack) 17 gm PO DAILY [facility] Last Admin: 07/27/24 13:24 Dose: 17 gm Trazodone HCl (Trazodone Hcl 50 Mg Tablet) 50 mg PO BEDTIME MRX1 PRN PRN Reason: Insomnia Last Admin: 07/26/24 21:46 Dose: 50 mg Home Medications ?Medication ?Instructions ?Recorded ?Confirmed ?Last Taken ?Type methadone 10 mg/mL oral 115 mg PO DAILY 07/22/24 07/22/24 07/21/24 08:19 History concentrate (Methadone Intensol) Physical Exam 2 Vital Signs: Vital Signs: Last Vital Signs Temp 98.0 F 07/27/24 07:45 Pulse 81 07/27/24 07:45 Resp 16 07/27/24 07:45 BP 104/59 L 07/27/24 07:45 Pulse Ox 96 07/27/24 07:45 O2 Del Method Room Air 07/27/24 07:45 BMI result Body Mass Index 24.4 Extrem: Other: Left lower extremity/leg is mildly edematous. His grossly neurovascularly intact. Patient has an area measuring approximately 8 x 5 cm of the medial anterior lateral aspect of the calf demonstrates some erythema and tenderness. No evidence of any fluctuance to suggest an abscess. This was corroborated by 2 sonograms of the area. Results Labs 07/26/24 09:54 07/26/24 09:54 Labs: Urine 07/23/24 Range/Units 10:23 Urine Color Dark Yellow Urine Appearance Cloudy Urine pH 6.0 (5.0-9.0) Ur Specific [place] >= 1.030 H (1.005-1.025) Urine Protein 30 (1+) H (Neg-Trace) mg/dL Urine Glucose (UA) Negative (Negative) mg/dL All other labs normal. Assessment and Plan (1) Cellulitis: Status: Acute Plan Current recommendation is to convert from oral to IV antibiotics, elevate the extremity as much as possible and continue surveillance of this process to see the cellulitic process resolves or does indeed develop into an abscess which then would require drainage. Procedures Date of Service Date of Service: 07/27/24
[2024-07-27] MEDS: Clindamycin Phosphate/D5W 300 MG/50 ML PIGGYBACK 100 MG IV ×2 (17:00→22:24)
--- NOTE | 2024-07-27 19:20 | HO.PSYCHPN ---
Subjective Subjective Date of Service: 07/27/24 Reason For Visit: SI Interim History: leg pain, otherwise no change and no complaint. awaiting visit from surgery. per staff, discolored, painful leg. not OOB. U/S NEG. focused on pain. Mental Status Exam Mental Status Exam Narrative: lying in bed supine, left leg resting on a pillow. hospital gown, c/o leg pain. cooperative. no PMA/PMR. thoughts linear and logical. affect constricted, normo-intense, non-labile. mood not assessed. no SI/SIBI/HI/AVH expressed. Diagnostics Vital Signs (24Hr): Vital Signs - 24 hr 07/26/24 20:00 07/27/24 07:45 Temperature 98.5 F 98.0 F Pulse Rate 69 81 Respiratory Rate 16 16 Blood Pressure 101/67 104/59 L Pulse Oximetry 96 96 Oxygen Delivery Method Room Air Room Air BMI result Body Mass Index 24.4 Labs 07/26/24 09:54 07/26/24 09:54 Labs: Laboratory Results - last 48 hr 07/26/24 07/26/24 09:50 09:54 WBC 7.6 RBC 3.76 L Hgb 10.9 L Hct 32.8 L MCV 87.2 MCH 29.0 MCHC 33.2 RDW 12.2 Plt Count 195 MPV 10.2 Immature Gran % (Auto) 0.5 H Neut % (Auto) 79.0 H Lymph % (Auto) 9.4 L [place] % (Auto) 5.4 Eos % (Auto) 5.4 H Baso % (Auto) 0.3 Lymph # (Auto) 0.7 L [place] # (Auto) 0.4 Eos # (Auto) 0.4 Baso # (Auto) 0.0 Abs Immat Gran (auto) 0.04 H Absolute Neuts (auto) 6.0 Absolute Nucleated RBC 0.000 Nucleated RBC % (auto) 0.0 Sodium 140 Potassium 4.3 D Chloride 104 Carbon Dioxide 30 H Anion Gap 10 L BUN 11 Creatinine 0.77 Estim Creat Clear Calc 132.9 Estimated GFR > 60 Random Glucose 155 H Lactic Acid 1.4 Calcium 8.4 Imaging Radiology Impressions: ITS Impressions Venous Duplex 07/22/24 11:11 IMPRESSION: No acute deep venous thrombosis involving the left lower extremity. Electronically signed by: Harrison Cedeno MD 07/22/2024 11:53 AM EST RP Venous Duplex 07/26/24 15:34 IMPRESSION: No evidence of deep venous thrombosis involving the left lower extremity. Electronically signed by: Mich Harper MD 07/26/2024 04:51 PM EST RP Medications Medications Current Medications Acetaminophen (Acetaminophen 325 Mg Tablet) 650 mg PO Q6H PRN PRN Reason: Headache/Pain Mild Scale (1-3) Last Admin: 07/27/24 15:19 Dose: 650 mg Al Hydroxide/Mg Hydroxide (Magnesium Hydrox/Alum Hydrox 30 Ml Oral.Susp) 30 ml PO Q6H PRN PRN Reason: Heartburn/Nausea Fluoxetine HCl (Fluoxetine Hcl 20 Mg Capsule) 20 mg PO DAILY [facility] Last Admin: 07/27/24 08:34 Dose: 20 mg Hydroxyzine HCl (Hydroxyzine Hcl 25 Mg Tablet) 25 mg PO Q6H PRN PRN Reason: Anxiety Last Admin: 07/26/24 21:46 Dose: 25 mg Clindamycin Phosphate (Cleocin) 300 mg in 50 mls @ 100 mls/hr IV Q8H [facility] Last Infusion: 07/27/24 17:49 Dose: Infused Ibuprofen (Ibuprofen 800 Mg Tablet) 800 mg PO Q6H PRN PRN Reason: Fever >101 or pain 0-10 Last Admin: 07/27/24 15:19 Dose: 800 mg Magnesium Hydroxide (Milk Of Magnesia 30 Ml Oral.Susp) 30 ml PO DAILY PRN PRN Reason: Constipation Methadone HCl (Methadone Hcl 20 Mg/2 Ml Oral.Conc) 115 mg PO DAILY [facility] Last Admin: 07/27/24 08:33 Dose: 115 mg Nicotine (Nicotine 21 Mg Patch.Td24) 21 mg TRANSDERMA DAILY [facility] Last Admin: 07/27/24 08:34 Dose: Not Given Nicotine Polacrilex (Nicotine Polacrilex 2 Mg Gum) 4 mg BUCCAL Q2H PRN PRN Reason: Nicotine Cravings Polyethylene Glycol (Polyethylene Glycol 3350 17 Gm Powd.Pack) 17 gm PO DAILY [facility] Last Admin: 07/27/24 13:24 Dose: 17 gm Trazodone HCl (Trazodone Hcl 50 Mg Tablet) 50 mg PO BEDTIME MRX1 PRN PRN Reason: Insomnia Last Admin: 07/26/24 21:46 Dose: 50 mg Allergies Allergies Allergy/AdvReac Type Severity Reaction Status Date / Time mayonnaise [MAYONNAISE] Allergy Intermediate THROAT AND Verified 07/22/24 08:50 TONGUE ITCH quetiapine [From SEROQUEL] Allergy Intermediate DYSTONIA Verified 07/22/24 08:50 cat dander [CATS] Allergy Unknown WATERY Verified 07/22/24 08:50 EYES, SNEEZING dog dander [DOG] Allergy Unknown UNKNOWN Verified 07/22/24 08:50 paroxetine [From PAXIL] Allergy Unknown FLU LIKE Verified 07/22/24 08:50 SYMPTOMS penicillin V Allergy Unknown Unknown Verified 07/22/24 08:50 Penicillins [PENICILLINS] Allergy Unknown SWELLING Verified 07/22/24 08:50 SEAFOOD Allergy Severe DIFFICULTY Uncoded 07/22/24 08:50 BREATHING Assessment & Plan Assessment & Plan (1) Cellulitis: Status: Acute Code(s): L03.90 - Cellulitis, unspecified Assessment and Plan: Current recommendation is to convert from oral to IV antibiotics, elevate the extremity as much as possible and continue surveillance of this process to see the cellulitic process resolves or does indeed develop into an abscess which then would require drainage. (2) Cocaine abuse: Status: Acute Code(s): F14.10 - Cocaine abuse, uncomplicated (3) Substance induced mood disorder: Status: Acute Code(s): F19.94 - Other psychoactive substance use, unspecified with psychoactive substance-induced mood disorder (4) Opioid use disorder, moderate, dependence: Status: Acute Code(s): F11.20 - Opioid dependence, uncomplicated Plan 07/24: pt denies withdrawal Sx. reports he has not been using enough to be in withdrawal. most concerned about his leg pain. continue doxy for cellulitis, comfort meds otherwise. start prozac for depression and anxiety. 07/25: continues to deny withdrawal Sx. getting prozac. mild improvement in left leg pain, no fever this morning. continue current mgmt. 07/26: much exacerbated leg pain today, crying and holding leg. medical consult suspects abscess; surgical consult placed and pending. otherwise remains as per prior re mental status. continue current mgmt. 07/27: seen by surgery today, changed antibx to IV. no abscess, no DVT. continue current mgmt otherwise. Reason for continued inpatient stay Substantial Risk for: inability to function Time Spent With Patient Time: Total time managing care of this patient today __25__ minutes.
[2024-07-27 19:35] VITALS: BP 113/56; PULSE 73; RESP 16; TEMP 36.7; O2SAT 97
[2024-07-27] MEDS: traMADoL HCL 50 MG TABLET 100 MG PO (20:00)
[2024-07-27] MEDS: traZODone HCL 50 MG TABLET PO (22:57)
[2024-07-28] MEDS: traMADoL HCL 50 MG TABLET 100 MG PO ×3 (05:59→21:39)
[2024-07-28] MEDS: Clindamycin Phosphate/D5W 300 MG/50 ML PIGGYBACK 100 MG IV ×3 (06:06→21:30)
[2024-07-28 07:54] VITALS: BP 107/65; PULSE 62; RESP 16; TEMP 36.6; O2SAT 96
[2024-07-28] MEDS: methADONE HCl 20 MG/2 ML ORAL.CONC 115 MG PO (08:38)
[2024-07-28] MEDS: FLUoxetine HCl 20 MG CAPSULE PO (08:38)
[2024-07-28] MEDS: polyethylene glycoL 3350 17 GM POWD.PACK PO (08:38)
[2024-07-28] MEDS: Ibuprofen 800 MG TABLET PO ×2 (08:38→19:55)
[2024-07-28] MEDS: Acetaminophen 325 MG TABLET 650 MG PO ×2 (08:39→19:56)
--- NOTE | 2024-07-28 12:33 | HO.PSYCHPN ---
Subjective Subjective Date of Service: 07/28/24 Reason For Visit: SI Interim History: calm, cooperative. feels leg is less swollen and tense sine starting IV antibx. says still not sleeping well due to the pain, asks for something to help him nap. agrees on thorazine 50 mg. per staff, leg looking better. getting ibu/tyl. stated leg feeling a little less tight. Mental Status Exam Mental Status Exam Narrative: lying in bed supine, left leg resting on a pillow. hospital gown, c/o leg pain. cooperative. no PMA/PMR. thoughts linear and logical. affect constricted, normo-intense, non-labile. mood not assessed. no SI/SIBI/HI/AVH expressed. Diagnostics Vital Signs (24Hr): Vital Signs - 24 hr 07/27/24 19:35 07/28/24 07:54 Temperature 98.0 F 97.8 F Pulse Rate 73 62 Respiratory Rate 16 16 Blood Pressure 113/56 L 107/65 Pulse Oximetry 97 96 Oxygen Delivery Method Room Air BMI result Body Mass Index 24.4 Labs 07/26/24 09:54 07/26/24 09:54 Imaging Radiology Impressions: ITS Impressions Venous Duplex 07/22/24 11:11 IMPRESSION: No acute deep venous thrombosis involving the left lower extremity. Electronically signed by: Harrison Cedeno MD 07/22/2024 11:53 AM EST RP Venous Duplex 07/26/24 15:34 IMPRESSION: No evidence of deep venous thrombosis involving the left lower extremity. Electronically signed by: Mich Harper MD 07/26/2024 04:51 PM EST RP Medications Medications Current Medications Acetaminophen (Acetaminophen 325 Mg Tablet) 650 mg PO Q6H PRN PRN Reason: Headache/Pain Mild Scale (1-3) Last Admin: 07/28/24 08:39 Dose: 650 mg Al Hydroxide/Mg Hydroxide (Magnesium Hydrox/Alum Hydrox 30 Ml Oral.Susp) 30 ml PO Q6H PRN PRN Reason: Heartburn/Nausea Chlorpromazine HCl (Chlorpromazine Hcl 25 Mg Tablet) 50 mg PO Q4H PRN PRN Reason: anxiety Fluoxetine HCl (Fluoxetine Hcl 20 Mg Capsule) 20 mg PO DAILY [facility] Last Admin: 07/28/24 08:38 Dose: 20 mg Hydroxyzine HCl (Hydroxyzine Hcl 25 Mg Tablet) 25 mg PO Q6H PRN PRN Reason: Anxiety Last Admin: 07/26/24 21:46 Dose: 25 mg Clindamycin Phosphate (Cleocin) 300 mg in 50 mls @ 100 mls/hr IV Q8H [facility] Last Infusion: 07/28/24 06:50 Dose: Infused Ibuprofen (Ibuprofen 800 Mg Tablet) 800 mg PO Q6H PRN PRN Reason: Fever >101 or pain 0-10 Last Admin: 07/28/24 08:38 Dose: 800 mg Magnesium Hydroxide (Milk Of Magnesia 30 Ml Oral.Susp) 30 ml PO DAILY PRN PRN Reason: Constipation Methadone HCl (Methadone Hcl 20 Mg/2 Ml Oral.Conc) 115 mg PO DAILY [facility] Last Admin: 07/28/24 08:38 Dose: 115 mg Nicotine (Nicotine 21 Mg Patch.Td24) 21 mg TRANSDERMA DAILY [facility] Last Admin: 07/28/24 08:38 Dose: Not Given Nicotine Polacrilex (Nicotine Polacrilex 2 Mg Gum) 4 mg BUCCAL Q2H PRN PRN Reason: Nicotine Cravings Polyethylene Glycol (Polyethylene Glycol 3350 17 Gm Powd.Pack) 17 gm PO DAILY [facility] Last Admin: 07/28/24 08:38 Dose: 17 gm Tramadol HCl (Tramadol Hcl 50 Mg Tablet) 100 mg PO Q6H PRN PRN Reason: severe pain Last Admin: 07/28/24 05:59 Dose: 100 mg Trazodone HCl (Trazodone Hcl 50 Mg Tablet) 50 mg PO BEDTIME MRX1 PRN PRN Reason: Insomnia Last Admin: 07/27/24 22:57 Dose: 50 mg Allergies Allergies Allergy/AdvReac Type Severity Reaction Status Date / Time mayonnaise [MAYONNAISE] Allergy Intermediate THROAT AND Verified 07/22/24 08:50 TONGUE ITCH quetiapine [From SEROQUEL] Allergy Intermediate DYSTONIA Verified 07/22/24 08:50 cat dander [CATS] Allergy Unknown WATERY Verified 07/22/24 08:50 EYES, SNEEZING dog dander [DOG] Allergy Unknown UNKNOWN Verified 07/22/24 08:50 paroxetine [From PAXIL] Allergy Unknown FLU LIKE Verified 07/22/24 08:50 SYMPTOMS penicillin V Allergy Unknown Unknown Verified 07/22/24 08:50 Penicillins [PENICILLINS] Allergy Unknown SWELLING Verified 07/22/24 08:50 SEAFOOD Allergy Severe DIFFICULTY Uncoded 07/22/24 08:50 BREATHING Assessment & Plan Assessment & Plan (1) Cellulitis: Status: Acute Code(s): L03.90 - Cellulitis, unspecified Assessment and Plan: Current recommendation is to convert from oral to IV antibiotics, elevate the extremity as much as possible and continue surveillance of this process to see the cellulitic process resolves or does indeed develop into an abscess which then would require drainage. (2) Cocaine abuse: Status: Acute Code(s): F14.10 - Cocaine abuse, uncomplicated (3) Substance induced mood disorder: Status: Acute Code(s): F19.94 - Other psychoactive substance use, unspecified with psychoactive substance-induced mood disorder (4) Opioid use disorder, moderate, dependence: Status: Acute Code(s): F11.20 - Opioid dependence, uncomplicated Plan 07/24: pt denies withdrawal Sx. reports he has not been using enough to be in withdrawal. most concerned about his leg pain. continue doxy for cellulitis, comfort meds otherwise. start prozac for depression and anxiety. 07/25: continues to deny withdrawal Sx. getting prozac. mild improvement in left leg pain, no fever this morning. continue current mgmt. 07/26: much exacerbated leg pain today, crying and holding leg. medical consult suspects abscess; surgical consult placed and pending. otherwise remains as per prior re mental status. continue current mgmt. 07/27: seen by surgery today, changed antibx to IV. no abscess, no DVT. continue current mgmt otherwise. 07/28: leg improving with IV antibx. thorazine for anxiety. otherwise continue current mgmt. Reason for continued inpatient stay Substantial Risk for: inability to function and rapid decompensation Time Spent With Patient Time: Total time managing care of this patient today ____ minutes.
[2024-07-28] MEDS: chlorproMAZINE HCl 25 MG TABLET 50 MG PO ×2 (13:13→21:39)
--- NOTE | 2024-07-28 15:34 | PM.PNGS ---
Subjective Subjective Date of Service: 07/28/24 Interval history: Follow-up evaluation for patient's left calf cellulitis. He states that he is able to ambulate today which he was unable to do over the last few days. He also states that he thinks the swelling is less. Physical Exam Vital Signs: Vital Signs: Last Vital Signs Temp 97.8 F 07/28/24 07:54 Pulse 62 07/28/24 07:54 Resp 16 07/28/24 07:54 BP 107/65 07/28/24 07:54 Pulse Ox 96 07/28/24 07:54 O2 Del Method Room Air 07/28/24 07:54 BMI result Body Mass Index 24.4 Extrem: Other: There is significantly less edema of the foot and left lower leg. The cellulitic area was demarcated and demonstrates no progression. Still mildly tender to palpation but improved from yesterday. Extremity neurovascularly intact. Objective Data Active Medications Acetaminophen (Acetaminophen 325 Mg Tablet) 650 mg PO Q6H PRN PRN Reason: Headache/Pain Mild Scale (1-3) Last Admin: 07/28/24 08:39 Dose: 650 mg Documented By: JAKE Al Hydroxide/Mg Hydroxide (Magnesium Hydrox/Alum Hydrox 30 Ml Oral.Susp) 30 ml PO Q6H PRN PRN Reason: Heartburn/Nausea Chlorpromazine HCl (Chlorpromazine Hcl 25 Mg Tablet) 50 mg PO Q4H PRN PRN Reason: anxiety Last Admin: 07/28/24 13:13 Dose: 50 mg Documented By: JAKE Fluoxetine HCl (Fluoxetine Hcl 20 Mg Capsule) 20 mg PO DAILY [facility] Last Admin: 07/28/24 08:38 Dose: 20 mg Documented By: JAKE Hydroxyzine HCl (Hydroxyzine Hcl 25 Mg Tablet) 25 mg PO Q6H PRN PRN Reason: Anxiety Last Admin: 07/26/24 21:46 Dose: 25 mg Documented By: MAKENZIE Clindamycin Phosphate (Cleocin) 300 mg in 50 mls @ 100 mls/hr IV Q8H [facility] Last Infusion: 07/28/24 14:07 Dose: Infused Documented By: JAKE Ibuprofen (Ibuprofen 800 Mg Tablet) 800 mg PO Q6H PRN PRN Reason: Fever >101 or pain 0-10 Last Admin: 07/28/24 08:38 Dose: 800 mg Documented By: JAKE Magnesium Hydroxide (Milk Of Magnesia 30 Ml Oral.Susp) 30 ml PO DAILY PRN PRN Reason: Constipation Methadone HCl (Methadone Hcl 20 Mg/2 Ml Oral.Conc) 115 mg PO DAILY [facility] Last Admin: 07/28/24 08:38 Dose: 115 mg Documented By: JAKE Co-signed By: TRENTONFRPAZ Nicotine (Nicotine 21 Mg Patch.Td24) 21 mg TRANSDERMA DAILY [facility] Last Admin: 07/28/24 08:38 Dose: Not Given Documented By: JAKE Non-Admin Reason: Patient Refused Nicotine Polacrilex (Nicotine Polacrilex 2 Mg Gum) 4 mg BUCCAL Q2H PRN PRN Reason: Nicotine Cravings Polyethylene Glycol (Polyethylene Glycol 3350 17 Gm Powd.Pack) 17 gm PO DAILY [facility] Last Admin: 07/28/24 08:38 Dose: 17 gm Documented By: JAKE Tramadol HCl (Tramadol Hcl 50 Mg Tablet) 100 mg PO Q6H PRN PRN Reason: severe pain Last Admin: 07/28/24 13:13 Dose: 100 mg Documented By: JAKE Trazodone HCl (Trazodone Hcl 50 Mg Tablet) 50 mg PO BEDTIME MRX1 PRN PRN Reason: Insomnia Last Admin: 07/27/24 22:57 Dose: 50 mg Documented By: STURUL Labs 07/26/24 09:54 07/26/24 09:54 Microbiology Microbiology Results: Microbiology 07/26/24 09:45 Blood Culture - Preliminary Blood - Venous No growth after 48 hours. 07/26/24 09:20 Blood Culture - Preliminary Blood - Venous No growth after 48 hours. 07/22/24 10:24 Blood Culture - Final Blood - Venous No growth after 5 days. 07/22/24 10:24 Blood Culture - Final Blood - Venous No growth after 5 days. Procedures Date of Service Date of Service: 07/28/24 Progress Note: A&P Assessment and plan (1) Cellulitis: Status: Acute Plan Continue current plan; IV antibiotics, elevation of extremity, follow for progression or regression of cellulitis on demarcated area. Time Spent With Patient Time: Total time managing care of this patient today ____ minutes. Quality Stroke Does the patient have a stroke diagnosis?: No VTE Prior VTE?: No VTE Risk Level:: Surgical - low VTE Device Contraindication: Treatment Not Indicated VTE Drug Contraindication: Treatment Not Indicated
[2024-07-28 19:35] VITALS: BP 90/54; PULSE 67; RESP 16; TEMP 37.4; O2SAT 94
[2024-07-28] MEDS: traZODone HCL 50 MG TABLET PO (21:55)
--- NOTE | 2024-07-28 23:45 | PC.NURSE ---
IV abt completely infused at 2145 dose time, medication not paused
[2024-07-29] MEDS: Clindamycin Phosphate/D5W 300 MG/50 ML PIGGYBACK 100 MG IV ×2 (05:22→13:49)
[2024-07-29] MEDS: Ibuprofen 800 MG TABLET PO ×2 (05:24→12:40)
[2024-07-29] MEDS: Acetaminophen 325 MG TABLET 650 MG PO ×2 (05:25→12:39)
[2024-07-29] MEDS: traMADoL HCL 50 MG TABLET 100 MG PO ×3 (06:43→21:19)
[2024-07-29 07:30] VITALS: BP 96/51; PULSE 67; RESP 18; TEMP 36.3; O2SAT 96
[2024-07-29] MEDS: methADONE HCl 20 MG/2 ML ORAL.CONC 115 MG PO (07:59)
[2024-07-29 08:00] VITALS: BP 96/51; PULSE 67; RESP 15; TEMP 36.3; O2SAT 96
[2024-07-29] MEDS: FLUoxetine HCl 20 MG CAPSULE PO (08:51)
[2024-07-29] MEDS: chlorproMAZINE HCl 25 MG TABLET 50 MG PO ×2 (08:56→17:20)
--- NOTE | 2024-07-29 09:50 | PC.NURSE ---
Pt BP is 96/51. This expert medical writer educated pt on importance of rising slowly, and sitting down should he get dizzy. This expert medical writer educated pt on drinking more water in order to get BP up. Pt stated understanding to all of the above.
--- NOTE | 2024-07-29 13:13 | HO.WOUND ---
Wound Consult: Deferred to General Surgery Dr. Núñez at this time 39yr old?male admitted to [facility] [place] [place] [facility] unit on 07/23/24 13:16 - See progress notes and H&P for detailed history.? Wound consult placed for Left Calf.?Chart review reveals patient has been evaluated by Dr. Núñez a few times this admission, advised staff to reach out to Dr. Núñez for evaluation. Will defer topical recommendations to Dr. Núñez at this time as his team continues to treat systemically with antibiotics. ?
--- NOTE | 2024-07-29 13:33 | PC.NURSE ---
Addendum entered by Mrary Damian RN 07/29/24 17:15: General surgeon came to see pt, instead of hospitalist. He dx a hematoma. 40cc of fluids were pulls out of the left LE. Pt tolerated procedure well. ABX were d/c. Pt stated that he felt instant relief from the procedure. IV was pulled, also tolerated well. No s&s of infection at IV site. Original Note: Pt continues to c/o pain in left lower leg, and states that it has worsened in pain since this morning. This sports writer observed that the leg appears to have worsened since this morning. There are more and larger lumps under the skin, inside the lower sioux that is drawn with surgical marker, the leg overall is more red, and there are darker spots under the lumps in the lower sioux. This sports writer texted Dr Anaya via [employer] connect, and a hospitalist consult was placed. Pt endorse anxiety/depression, However, he denies SI/HI/AVH. Pt states concern about his leg, and also stated that he snorted Xylazine for 1 week before coming here.
--- NOTE | 2024-07-29 14:45 | HO.PSYCHPN ---
Subjective Subjective Date of Service: 07/29/24 Reason For Visit: SI Interim History: leg worse again. 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 no other complaints or requests. per staff, OOB yesterday, swelling improved. brighter affect. sleeping 7-8 hours. Mental Status Exam Mental Status Exam Narrative: sitting in chair in milieu, legs propped on stool. hospital gown, c/o leg pain. cooperative. no PMA/PMR. thoughts linear and logical. affect constricted, normo-intense, non-labile. mood not assessed. no SI/SIBI/HI/AVH expressed. Diagnostics Vital Signs (24Hr): Vital Signs - 24 hr 07/28/24 19:35 07/29/24 07:30 07/29/24 08:00 Temperature 99.3 F 97.3 F 97.3 F Pulse Rate 67 67 67 Respiratory Rate 16 18 15 Blood Pressure 90/54 L 96/51 L 96/51 L Pulse Oximetry 94 96 96 Oxygen Delivery Method Room Air Room Air Room Air BMI result Body Mass Index 24.4 Labs 07/26/24 09:54 07/26/24 09:54 Imaging Radiology Impressions: ITS Impressions Venous Duplex 07/22/24 11:11 IMPRESSION: No acute deep venous thrombosis involving the left lower extremity. Electronically signed by: Harrison Cedeno MD 07/22/2024 11:53 AM EST RP Venous Duplex 07/26/24 15:34 IMPRESSION: No evidence of deep venous thrombosis involving the left lower extremity. Electronically signed by: Mich Harper MD 07/26/2024 04:51 PM EST RP Medications Medications Current Medications Acetaminophen (Acetaminophen 325 Mg Tablet) 650 mg PO Q6H PRN PRN Reason: Headache/Pain Mild Scale (1-3) Last Admin: 07/29/24 12:39 Dose: 650 mg Al Hydroxide/Mg Hydroxide (Magnesium Hydrox/Alum Hydrox 30 Ml Oral.Susp) 30 ml PO Q6H PRN PRN Reason: Heartburn/Nausea Chlorpromazine HCl (Chlorpromazine Hcl 25 Mg Tablet) 50 mg PO Q4H PRN PRN Reason: anxiety Last Admin: 07/29/24 08:56 Dose: 50 mg Fluoxetine HCl (Fluoxetine Hcl 20 Mg Capsule) 20 mg PO DAILY [facility] Last Admin: 07/29/24 08:51 Dose: 20 mg Hydroxyzine HCl (Hydroxyzine Hcl 25 Mg Tablet) 25 mg PO Q6H PRN PRN Reason: Anxiety Last Admin: 07/26/24 21:46 Dose: 25 mg Clindamycin Phosphate (Cleocin) 300 mg in 50 mls @ 100 mls/hr IV Q8H [facility] Last Admin: 07/29/24 13:49 Dose: 100 mls/hr Ibuprofen (Ibuprofen 800 Mg Tablet) 800 mg PO Q6H PRN PRN Reason: Fever >101 or pain 0-10 Last Admin: 07/29/24 12:40 Dose: 800 mg Magnesium Hydroxide (Milk Of Magnesia 30 Ml Oral.Susp) 30 ml PO DAILY PRN PRN Reason: Constipation Methadone HCl (Methadone Hcl 20 Mg/2 Ml Oral.Conc) 115 mg PO DAILY [facility] Last Admin: 07/29/24 07:59 Dose: 115 mg Nicotine (Nicotine 21 Mg Patch.Td24) 21 mg TRANSDERMA DAILY [facility] Last Admin: 07/29/24 08:57 Dose: Not Given Nicotine Polacrilex (Nicotine Polacrilex 2 Mg Gum) 4 mg BUCCAL Q2H PRN PRN Reason: Nicotine Cravings Polyethylene Glycol (Polyethylene Glycol 3350 17 Gm Powd.Pack) 17 gm PO DAILY [facility] Last Admin: 07/29/24 08:58 Dose: Not Given Tramadol HCl (Tramadol Hcl 50 Mg Tablet) 100 mg PO Q6H PRN PRN Reason: severe pain Last Admin: 07/29/24 12:39 Dose: 100 mg Trazodone HCl (Trazodone Hcl 50 Mg Tablet) 50 mg PO BEDTIME MRX1 PRN PRN Reason: Insomnia Last Admin: 07/28/24 21:55 Dose: 50 mg Allergies Allergies Allergy/AdvReac Type Severity Reaction Status Date / Time mayonnaise [MAYONNAISE] Allergy Intermediate THROAT AND Verified 07/22/24 08:50 TONGUE ITCH quetiapine [From SEROQUEL] Allergy Intermediate DYSTONIA Verified 07/22/24 08:50 cat dander [CATS] Allergy Unknown WATERY Verified 07/22/24 08:50 EYES, SNEEZING dog dander [DOG] Allergy Unknown UNKNOWN Verified 07/22/24 08:50 paroxetine [From PAXIL] Allergy Unknown FLU LIKE Verified 07/22/24 08:50 SYMPTOMS penicillin V Allergy Unknown Unknown Verified 07/22/24 08:50 Penicillins [PENICILLINS] Allergy Unknown SWELLING Verified 07/22/24 08:50 SEAFOOD Allergy Severe DIFFICULTY Uncoded 07/22/24 08:50 BREATHING Assessment & Plan Assessment & Plan (1) Cellulitis: Status: Acute Code(s): L03.90 - Cellulitis, unspecified (2) Cocaine abuse: Status: Acute Code(s): F14.10 - Cocaine abuse, uncomplicated (3) Substance induced mood disorder: Status: Acute Code(s): F19.94 - Other psychoactive substance use, unspecified with psychoactive substance-induced mood disorder (4) Opioid use disorder, moderate, dependence: Status: Acute Code(s): F11.20 - Opioid dependence, uncomplicated (5) PTSD (post-traumatic stress disorder): Status: Acute Code(s): F43.10 - Post-traumatic stress disorder, unspecified Plan 07/24: pt denies withdrawal Sx. reports he has not been using enough to be in withdrawal. most concerned about his leg pain. continue doxy for cellulitis, comfort meds otherwise. start prozac for depression and anxiety. 07/25: continues to deny withdrawal Sx. getting prozac. mild improvement in left leg pain, no fever this morning. continue current mgmt. 07/26: much exacerbated leg pain today, crying and holding leg. medical consult suspects abscess; surgical consult placed and pending. otherwise remains as per prior re mental status. continue current mgmt. 07/27: seen by surgery today, changed antibx to IV. no abscess, no DVT. continue current mgmt otherwise. 07/28: leg improving with IV antibx. thorazine for anxiety. otherwise continue current mgmt. 07/29: leg appears worse once again today. pt reports recent xylazine use. per surgery, continue current mgmt. no other complaints or concerns. Reason for continued inpatient stay Substantial Risk for: inability to function Time Spent With Patient Time: Total time managing care of this patient today __35__ minutes.
--- NOTE | 2024-07-29 15:19 | P.PNGS_ITS ---
Subjective Subjective Date of Service: 07/29/24 Interval history: Patient has some increased discomfort at the left proximal calf site. He does recall sustaining trauma here in the recent past. Physical Exam 2 Vital Signs: Vital Signs: Last Vital Signs Temp 97.3 F 07/29/24 08:00 Pulse 67 07/29/24 08:00 Resp 15 07/29/24 08:00 BP 96/51 L 07/29/24 08:00 Pulse Ox 96 07/29/24 08:00 O2 Del Method Room Air 07/29/24 08:00 BMI result Body Mass Index 24.4 Extrem: Other: Under sterile technique using Betadine prep, roughly 40 cc of hematoma was drained. Dressing applied. Patient tolerated procedure well. He feels the pressure has decreased and actually feels better. Objective Data Active Medications Acetaminophen (Acetaminophen 325 Mg Tablet) 650 mg PO Q6H PRN PRN Reason: Headache/Pain Mild Scale (1-3) Last Admin: 07/29/24 12:39 Dose: 650 mg Documented By: EBER Al Hydroxide/Mg Hydroxide (Magnesium Hydrox/Alum Hydrox 30 Ml Oral.Susp) 30 ml PO Q6H PRN PRN Reason: Heartburn/Nausea Chlorpromazine HCl (Chlorpromazine Hcl 25 Mg Tablet) 50 mg PO Q4H PRN PRN Reason: anxiety Last Admin: 07/29/24 08:56 Dose: 50 mg Documented By: EBER Fluoxetine HCl (Fluoxetine Hcl 20 Mg Capsule) 20 mg PO DAILY [facility] Last Admin: 07/29/24 08:51 Dose: 20 mg Documented By: EBER Hydroxyzine HCl (Hydroxyzine Hcl 25 Mg Tablet) 25 mg PO Q6H PRN PRN Reason: Anxiety Last Admin: 07/26/24 21:46 Dose: 25 mg Documented By: MAKENZIE Clindamycin Phosphate (Cleocin) 300 mg in 50 mls @ 100 mls/hr IV Q8H [facility] Last Admin: 07/29/24 13:49 Dose: 100 mls/hr Documented By: EBER Ibuprofen (Ibuprofen 800 Mg Tablet) 800 mg PO Q6H PRN PRN Reason: Fever >101 or pain 0-10 Last Admin: 07/29/24 12:40 Dose: 800 mg Documented By: EBER Magnesium Hydroxide (Milk Of Magnesia 30 Ml Oral.Susp) 30 ml PO DAILY PRN PRN Reason: Constipation Methadone HCl (Methadone Hcl 20 Mg/2 Ml Oral.Conc) 115 mg PO DAILY [facility] Last Admin: 07/29/24 07:59 Dose: 115 mg Documented By: EBER Co-signed By: CONCEPCIONTALSondra Nicotine (Nicotine 21 Mg Patch.Td24) 21 mg TRANSDERMA DAILY PRN PRN Reason: nicotine craving Nicotine Polacrilex (Nicotine Polacrilex 2 Mg Gum) 4 mg BUCCAL Q2H PRN PRN Reason: Nicotine Cravings Polyethylene Glycol (Polyethylene Glycol 3350 17 Gm Powd.Pack) 17 gm PO DAILY [facility] Last Admin: 07/29/24 08:58 Dose: Not Given Documented By: EBER Non-Admin Reason: Patient Refused Tramadol HCl (Tramadol Hcl 50 Mg Tablet) 100 mg PO Q6H PRN PRN Reason: severe pain Last Admin: 07/29/24 12:39 Dose: 100 mg Documented By: EBER Trazodone HCl (Trazodone Hcl 50 Mg Tablet) 50 mg PO BEDTIME MRX1 PRN PRN Reason: Insomnia Last Admin: 07/28/24 21:55 Dose: 50 mg Documented By: STURUL Labs 07/26/24 09:54 07/26/24 09:54 Microbiology Microbiology Results: Microbiology 07/23/24 18:10 Blood Culture - Final Blood - Venous No growth after 5 days. 07/23/24 18:10 Blood Culture - Final Blood - Venous No growth after 5 days. 07/26/24 09:45 Blood Culture - Preliminary Blood - Venous No growth after 48 hours. 07/26/24 09:20 Blood Culture - Preliminary Blood - Venous No growth after 48 hours. Procedures Date of Service Date of Service: 07/29/24 Procedure Note Procedure Note: Please see note regarding leg hematoma aspiration Progress Note: A&P Assessment and plan (1) Traumatic hematoma of lower leg: Status: Acute Plan Status post hematoma aspiration. Should this progress or were maintained symptomatology, this procedure can be repeated. Time Spent With Patient Time: Total time managing care of this patient today ____ minutes. Quality Stroke Does the patient have a stroke diagnosis?: No VTE Prior VTE?: No VTE Risk Level:: Surgical - low VTE Device Contraindication: Treatment Not Indicated VTE Drug Contraindication: Treatment Not Indicated
[2024-07-29 20:00] VITALS: BP 120/64; PULSE 84; RESP 16; TEMP 36.8; O2SAT 95
[2024-07-29] MEDS: traZODone HCL 50 MG TABLET PO (21:18)
[2024-07-30] MEDS: Ibuprofen 800 MG TABLET PO ×2 (04:32→18:36)
[2024-07-30] MEDS: Acetaminophen 325 MG TABLET 650 MG PO ×2 (04:32→21:18)
[2024-07-30] MEDS: chlorproMAZINE HCl 25 MG TABLET 50 MG PO ×3 (04:32→17:10)
[2024-07-30 08:00] VITALS: BP 128/79; PULSE 91; RESP 14; TEMP 36.8; O2SAT 98
[2024-07-30] MEDS: methADONE HCl 20 MG/2 ML ORAL.CONC 115 MG PO (08:27)
[2024-07-30] MEDS: traMADoL HCL 50 MG TABLET 100 MG PO ×2 (08:29→17:10)
[2024-07-30] MEDS: FLUoxetine HCl 20 MG CAPSULE PO (08:29)
[2024-07-30] MEDS: hydrOXYzine HCL 25 MG TABLET PO ×2 (08:32→17:10)
--- NOTE | 2024-07-30 10:27 | P.PNPSI_ITS ---
Subjective Subjective Date of Service: 07/30/24 Reason For Visit: SI Subjective Notes: Conditional Voluntary Interim History: Keeping to self. laying in bed. Reports feeling anxious d/t leg; however states his leg does feel better. per nursing, slept 6 hours. denies SI/HI/VH/AH. Pt reports he plans on going to his brother home after discharge. Medication Compliance: Yes Side effects from medications: No Attending Groups: No Review of Systems Constitutional: Reports as per HPI Eyes: Reports as per HPI Reports as per HPI Cardiovascular: Reports as per HPI Respiratory: Reports as per HPI Gastrointestinal: Reports as per HPI Genitourinary: Reports as per HPI Musculoskeletal: Reports as per HPI Skin/Breast: Reports as per HPI Reports as per HPI Psychiatric: Reports as per HPI Endocrine: Reports as per HPI Hematologic/Lymphatic: Reports as per HPI Allergic/Immunologic: Reports as per HPI Mental Status Exam Mental Status Exam Narrative: Pt is alert and oriented; behavior is cooperative; dressed in casual attire; mood is described as anxious ; eye contact appropriate; Speech is normal rate, volume and not pressured; thought process is organized; Thought content is on tx; denies SI/HI/VH/AH. Diagnostics Vital Signs (24Hr): Vital Signs - 24 hr 07/29/24 20:00 07/30/24 08:00 Temperature 98.2 F 98.3 F Pulse Rate 84 91 Respiratory Rate 16 14 Blood Pressure 120/64 128/79 Pulse Oximetry 95 98 Oxygen Delivery Method Room Air Room Air BMI result Body Mass Index 24.4 Labs 07/26/24 09:54 07/26/24 09:54 Imaging Radiology Impressions: ITS Impressions Venous Duplex 07/22/24 11:11 IMPRESSION: No acute deep venous thrombosis involving the left lower extremity. Electronically signed by: Harrison Cedeno MD 07/22/2024 11:53 AM EST RP Venous Duplex 07/26/24 15:34 IMPRESSION: No evidence of deep venous thrombosis involving the left lower extremity. Electronically signed by: Mich Harper MD 07/26/2024 04:51 PM EST RP Medications Medications Current Medications Acetaminophen (Acetaminophen 325 Mg Tablet) 650 mg PO Q6H PRN PRN Reason: Headache/Pain Mild Scale (1-3) Last Admin: 11/26/24 04:32 Dose: 650 mg Al Hydroxide/Mg Hydroxide (Magnesium Hydrox/Alum Hydrox 30 Ml Oral.Susp) 30 ml PO Q6H PRN PRN Reason: Heartburn/Nausea Chlorpromazine HCl (Chlorpromazine Hcl 25 Mg Tablet) 50 mg PO Q4H PRN PRN Reason: anxiety Last Admin: 07/30/24 08:32 Dose: 50 mg Fluoxetine HCl (Fluoxetine Hcl 20 Mg Capsule) 20 mg PO DAILY [facility] Last Admin: 07/30/24 08:29 Dose: 20 mg Hydroxyzine HCl (Hydroxyzine Hcl 25 Mg Tablet) 25 mg PO Q6H PRN PRN Reason: Anxiety Last Admin: 07/30/24 08:32 Dose: 25 mg Ibuprofen (Ibuprofen 800 Mg Tablet) 800 mg PO Q6H PRN PRN Reason: Fever >101 or pain 0-10 Last Admin: 07/30/24 04:32 Dose: 800 mg Magnesium Hydroxide (Milk Of Magnesia 30 Ml Oral.Susp) 30 ml PO DAILY PRN PRN Reason: Constipation Methadone HCl (Methadone Hcl 20 Mg/2 Ml Oral.Conc) 115 mg PO DAILY [facility] Last Admin: 07/30/24 08:27 Dose: 115 mg Nicotine (Nicotine 21 Mg Patch.Td24) 21 mg TRANSDERMA DAILY PRN PRN Reason: nicotine craving Nicotine Polacrilex (Nicotine Polacrilex 2 Mg Gum) 4 mg BUCCAL Q2H PRN PRN Reason: Nicotine Cravings Polyethylene Glycol (Polyethylene Glycol 3350 17 Gm Powd.Pack) 17 gm PO DAILY [facility] Last Admin: 07/30/24 08:29 Dose: Not Given Tramadol HCl (Tramadol Hcl 50 Mg Tablet) 100 mg PO Q6H PRN PRN Reason: severe pain Last Admin: 07/30/24 08:29 Dose: 100 mg Trazodone HCl (Trazodone Hcl 50 Mg Tablet) 50 mg PO BEDTIME MRX1 PRN PRN Reason: Insomnia Last Admin: 07/29/24 21:18 Dose: 50 mg Allergies Allergies Allergy/AdvReac Type Severity Reaction Status Date / Time mayonnaise [MAYONNAISE] Allergy Intermediate THROAT AND Verified 07/22/24 08:50 TONGUE ITCH quetiapine [From SEROQUEL] Allergy Intermediate DYSTONIA Verified 07/22/24 08:50 cat dander [CATS] Allergy Unknown WATERY Verified 07/22/24 08:50 EYES, SNEEZING dog dander [DOG] Allergy Unknown UNKNOWN Verified 07/22/24 08:50 paroxetine [From PAXIL] Allergy Unknown FLU LIKE Verified 07/22/24 08:50 SYMPTOMS penicillin V Allergy Unknown Unknown Verified 07/22/24 08:50 Penicillins [PENICILLINS] Allergy Unknown SWELLING Verified 07/22/24 08:50 SEAFOOD Allergy Severe DIFFICULTY Uncoded 07/22/24 08:50 BREATHING Assessment & Plan Assessment & Plan (1) PTSD (post-traumatic stress disorder): Status: Acute Code(s): F43.10 - Post-traumatic stress disorder, unspecified (2) Traumatic hematoma of lower leg: Status: Acute Code(s): S80.10XA - Contusion of unspecified lower leg, initial encounter (3) Opioid use disorder, moderate, dependence: Status: Acute Code(s): F11.20 - Opioid dependence, uncomplicated (4) Cocaine abuse: Status: Acute Code(s): F14.10 - Cocaine abuse, uncomplicated (5) Benzodiazepine abuse: Status: Acute Code(s): F13.10 - Sedative, hypnotic or anxiolytic abuse, uncomplicated (6) Fentanyl use disorder, severe: Status: Acute Code(s): F11.20 - Opioid dependence, uncomplicated Plan 07/24: pt denies withdrawal Sx. reports he has not been using enough to be in withdrawal. most concerned about his leg pain. continue doxy for cellulitis, comfort meds otherwise. start prozac for depression and anxiety. 07/25: continues to deny withdrawal Sx. getting prozac. mild improvement in left leg pain, no fever this morning. continue current mgmt. 07/26: much exacerbated leg pain today, crying and holding leg. medical consult suspects abscess; surgical consult placed and pending. otherwise remains as per prior re mental status. continue current mgmt. 07/27: seen by surgery today, changed antibx to IV. no abscess, no DVT. continue current mgmt otherwise. 07/28: leg improving with IV antibx. thorazine for anxiety. otherwise continue current mgmt. 07/29: leg appears worse once again today. pt reports recent xylazine use. per surgery, continue current mgmt. no other complaints or concerns. 07/30: continue current tx plan. Patient educated on: medication risk/benefits Reason for continued inpatient stay Substantial Risk for: med/psych decompensation Time Spent With Patient Time: Total time managing care of this patient today _20___ minutes.
[2024-07-30] MEDS: traZODone HCL 50 MG TABLET PO (21:19)
[2024-07-31] MEDS: traMADoL HCL 50 MG TABLET 100 MG PO ×3 (00:25→19:23)
[2024-07-31] MEDS: chlorproMAZINE HCl 25 MG TABLET 50 MG PO ×3 (00:29→19:23)
[2024-07-31 07:56] VITALS: BP 108/65; PULSE 79; RESP 16; TEMP 36.5; O2SAT 96
[2024-07-31] MEDS: methADONE HCl 20 MG/2 ML ORAL.CONC 115 MG PO (08:04)
[2024-07-31] MEDS: FLUoxetine HCl 20 MG CAPSULE PO (08:27)
[2024-07-31] MEDS: hydrOXYzine HCL 25 MG TABLET PO ×2 (11:47→19:23)
--- NOTE | 2024-07-31 13:59 | HO.PSYCHPN ---
Subjective Subjective Date of Service: 07/31/24 Reason For Visit: SI Subjective Notes: Conditional Voluntary Interim History: Active on unit, social with peers. attending groups. utilizing wheel chair. Patient reports continued anxiety and depressed regarding leg; he also reports his mother is in the hospital who he is concerned about. denies SI/HI/VH/AH. He reports sleeping well last night. Medication Compliance: Yes Side effects from medications: No Attending Groups: Yes Review of Systems Constitutional: Reports as per HPI Eyes: Reports as per HPI Reports as per HPI Cardiovascular: Reports as per HPI Respiratory: Reports as per HPI Gastrointestinal: Reports as per HPI Genitourinary: Reports as per HPI Musculoskeletal: Reports as per HPI Skin/Breast: Reports as per HPI Reports as per HPI Psychiatric: Reports as per HPI Endocrine: Reports as per HPI Hematologic/Lymphatic: Reports as per HPI Allergic/Immunologic: Reports as per HPI Mental Status Exam Mental Status Exam Narrative: Pt is alert and oriented; behavior is cooperative; dressed in casual attire; mood is described as anxious and depressed ; eye contact appropriate; Speech is normal rate, volume and not pressured; thought process is organized; Thought content is on tx; denies SI/HI/VH/AH. Diagnostics Vital Signs (24Hr): Vital Signs - 24 hr 07/31/24 07:56 Temperature 97.7 F Pulse Rate 79 Respiratory Rate 16 Blood Pressure 108/65 Pulse Oximetry 96 Oxygen Delivery Method Room Air BMI result Body Mass Index 24.4 Labs 07/26/24 09:54 07/26/24 09:54 Imaging Radiology Impressions: ITS Impressions Venous Duplex 07/22/24 11:11 IMPRESSION: No acute deep venous thrombosis involving the left lower extremity. Electronically signed by: Harrison Cedeno MD 07/22/2024 11:53 AM EST RP Venous Duplex 07/26/24 15:34 IMPRESSION: No evidence of deep venous thrombosis involving the left lower extremity. Electronically signed by: Mich Harper MD 07/26/2024 04:51 PM EST RP Medications Medications Current Medications Acetaminophen (Acetaminophen 325 Mg Tablet) 650 mg PO Q6H PRN PRN Reason: Headache/Pain Mild Scale (1-3) Last Admin: 07/30/24 21:18 Dose: 650 mg Al Hydroxide/Mg Hydroxide (Magnesium Hydrox/Alum Hydrox 30 Ml Oral.Susp) 30 ml PO Q6H PRN PRN Reason: Heartburn/Nausea Chlorpromazine HCl (Chlorpromazine Hcl 25 Mg Tablet) 50 mg PO Q4H PRN PRN Reason: anxiety Last Admin: 07/31/24 08:26 Dose: 50 mg Fluoxetine HCl (Fluoxetine Hcl 20 Mg Capsule) 20 mg PO DAILY [facility] Last Admin: 07/31/24 08:27 Dose: 20 mg Hydroxyzine HCl (Hydroxyzine Hcl 25 Mg Tablet) 25 mg PO Q6H PRN PRN Reason: Anxiety Last Admin: 07/31/24 11:47 Dose: 25 mg Ibuprofen (Ibuprofen 800 Mg Tablet) 800 mg PO Q6H PRN PRN Reason: Fever >101 or pain 0-10 Last Admin: 07/30/24 18:36 Dose: 800 mg Magnesium Hydroxide (Milk Of Magnesia 30 Ml Oral.Susp) 30 ml PO DAILY PRN PRN Reason: Constipation Methadone HCl (Methadone Hcl 20 Mg/2 Ml Oral.Conc) 115 mg PO DAILY [facility] Last Admin: 07/31/24 08:04 Dose: 115 mg Nicotine (Nicotine 21 Mg Patch.Td24) 21 mg TRANSDERMA DAILY PRN PRN Reason: nicotine craving Nicotine Polacrilex (Nicotine Polacrilex 2 Mg Gum) 4 mg BUCCAL Q2H PRN PRN Reason: Nicotine Cravings Polyethylene Glycol (Polyethylene Glycol 3350 17 Gm Powd.Pack) 17 gm PO DAILY [facility] Last Admin: 07/31/24 08:28 Dose: Not Given Tramadol HCl (Tramadol Hcl 50 Mg Tablet) 100 mg PO Q6H PRN PRN Reason: severe pain Last Admin: 07/31/24 08:26 Dose: 100 mg Trazodone HCl (Trazodone Hcl 50 Mg Tablet) 50 mg PO BEDTIME MRX1 PRN PRN Reason: Insomnia Last Admin: 07/30/24 21:19 Dose: 50 mg Allergies Allergies Allergy/AdvReac Type Severity Reaction Status Date / Time mayonnaise [MAYONNAISE] Allergy Intermediate THROAT AND Verified 07/22/24 08:50 TONGUE ITCH quetiapine [From SEROQUEL] Allergy Intermediate DYSTONIA Verified 07/22/24 08:50 cat dander [CATS] Allergy Unknown WATERY Verified 07/22/24 08:50 EYES, SNEEZING dog dander [DOG] Allergy Unknown UNKNOWN Verified 07/22/24 08:50 paroxetine [From PAXIL] Allergy Unknown FLU LIKE Verified 07/22/24 08:50 SYMPTOMS penicillin V Allergy Unknown Unknown Verified 07/22/24 08:50 Penicillins [PENICILLINS] Allergy Unknown SWELLING Verified 07/22/24 08:50 SEAFOOD Allergy Severe DIFFICULTY Uncoded 07/22/24 08:50 BREATHING Assessment & Plan Assessment & Plan (1) PTSD (post-traumatic stress disorder): Status: Acute Code(s): F43.10 - Post-traumatic stress disorder, unspecified (2) Traumatic hematoma of lower leg: Status: Acute Code(s): S80.10XA - Contusion of unspecified lower leg, initial encounter (3) Opioid use disorder, moderate, dependence: Status: Acute Code(s): F11.20 - Opioid dependence, uncomplicated (4) Cocaine abuse: Status: Acute Code(s): F14.10 - Cocaine abuse, uncomplicated (5) Benzodiazepine abuse: Status: Acute Code(s): F13.10 - Sedative, hypnotic or anxiolytic abuse, uncomplicated (6) Fentanyl use disorder, severe: Status: Acute Code(s): F11.20 - Opioid dependence, uncomplicated Plan 07/24: pt denies withdrawal Sx. reports he has not been using enough to be in withdrawal. most concerned about his leg pain. continue doxy for cellulitis, comfort meds otherwise. start prozac for depression and anxiety. 07/25: continues to deny withdrawal Sx. getting prozac. mild improvement in left leg pain, no fever this morning. continue current mgmt. 07/26: much exacerbated leg pain today, crying and holding leg. medical consult suspects abscess; surgical consult placed and pending. otherwise remains as per prior re mental status. continue current mgmt. 07/27: seen by surgery today, changed antibx to IV. no abscess, no DVT. continue current mgmt otherwise. 07/28: leg improving with IV antibx. thorazine for anxiety. otherwise continue current mgmt. 07/29: leg appears worse once again today. pt reports recent xylazine use. per surgery, continue current mgmt. no other complaints or concerns. 07/30: continue current tx plan. 07/31: continue current tx plan. attending groups. medication compliant. reports sleeping well last night. Patient educated on: diagnosis and medication risk/benefits Reason for continued inpatient stay Substantial Risk for: med/psych decompensation Time Spent With Patient Time: Total time managing care of this patient today _20___ minutes.
[2024-07-31 19:37] VITALS: BP 104/55; PULSE 74; RESP 16; TEMP 36.8; O2SAT 97
[2024-08-01] MEDS: chlorproMAZINE HCl 25 MG TABLET 50 MG PO ×2 (07:13→13:15)
[2024-08-01] MEDS: hydrOXYzine HCL 25 MG TABLET PO ×2 (07:13→13:14)
[2024-08-01] MEDS: traMADoL HCL 50 MG TABLET 100 MG PO ×2 (07:18→13:14)
[2024-08-01 07:41] VITALS: BP 109/65; PULSE 72; RESP 16; TEMP 37.2; O2SAT 97
--- NOTE | 2024-08-01 08:01 | HO.PSYCHPN ---
Subjective Subjective Date of Service: 08/01/24 Reason For Visit: SI Subjective Notes: Conditional Voluntary Interim History: utilizing wheel chair. Patient reports feeling okay today; continues to report sleeping well last night. denies SI/HI/VH/AH. attending groups. Medication Compliance: Yes Side effects from medications: No Attending Groups: Yes Review of Systems Constitutional: Reports as per HPI Eyes: Reports as per HPI Reports as per HPI Cardiovascular: Reports as per HPI Respiratory: Reports as per HPI Gastrointestinal: Reports as per HPI Genitourinary: Reports as per HPI Musculoskeletal: Reports as per HPI Skin/Breast: Reports as per HPI Reports as per HPI Psychiatric: Reports as per HPI Endocrine: Reports as per HPI Hematologic/Lymphatic: Reports as per HPI Allergic/Immunologic: Reports as per HPI Mental Status Exam Mental Status Exam Narrative: Pt is alert and oriented; behavior is cooperative; dressed in casual attire; mood is described as okay ; eye contact appropriate; Speech is normal rate, volume and not pressured; thought process is organized; Thought content is on tx; denies SI/HI/VH/AH. Diagnostics Vital Signs (24Hr): Vital Signs - 24 hr 07/31/24 19:37 08/01/24 07:41 Temperature 98.3 F 99.0 F Pulse Rate 74 72 Respiratory Rate 16 16 Blood Pressure 104/55 L 109/65 Pulse Oximetry 97 97 Oxygen Delivery Method Room Air Room Air BMI result Body Mass Index 24.4 Labs 07/26/24 09:54 07/26/24 09:54 Imaging Radiology Impressions: ITS Impressions Venous Duplex 07/22/24 11:11 IMPRESSION: No acute deep venous thrombosis involving the left lower extremity. Electronically signed by: Harrison Cedeno MD 07/22/2024 11:53 AM EST RP Venous Duplex 07/26/24 15:34 IMPRESSION: No evidence of deep venous thrombosis involving the left lower extremity. Electronically signed by: Mich Harper MD 07/26/2024 04:51 PM EST RP Medications Medications Current Medications Acetaminophen (Acetaminophen 325 Mg Tablet) 650 mg PO Q6H PRN PRN Reason: Headache/Pain Mild Scale (1-3) Last Admin: 07/30/24 21:18 Dose: 650 mg Al Hydroxide/Mg Hydroxide (Magnesium Hydrox/Alum Hydrox 30 Ml Oral.Susp) 30 ml PO Q6H PRN PRN Reason: Heartburn/Nausea Chlorpromazine HCl (Chlorpromazine Hcl 25 Mg Tablet) 50 mg PO Q4H PRN PRN Reason: anxiety Last Admin: 08/01/24 07:13 Dose: 50 mg Fluoxetine HCl (Fluoxetine Hcl 20 Mg Capsule) 20 mg PO DAILY [facility] Last Admin: 07/31/24 08:27 Dose: 20 mg Hydroxyzine HCl (Hydroxyzine Hcl 25 Mg Tablet) 25 mg PO Q6H PRN PRN Reason: Anxiety Last Admin: 08/01/24 07:13 Dose: 25 mg Ibuprofen (Ibuprofen 800 Mg Tablet) 800 mg PO Q6H PRN PRN Reason: Fever >101 or pain 0-10 Last Admin: 07/30/24 18:36 Dose: 800 mg Magnesium Hydroxide (Milk Of Magnesia 30 Ml Oral.Susp) 30 ml PO DAILY PRN PRN Reason: Constipation Methadone HCl (Methadone Hcl 20 Mg/2 Ml Oral.Conc) 115 mg PO DAILY [facility] Last Admin: 07/31/24 08:04 Dose: 115 mg Nicotine (Nicotine 21 Mg Patch.Td24) 21 mg TRANSDERMA DAILY PRN PRN Reason: nicotine craving Nicotine Polacrilex (Nicotine Polacrilex 2 Mg Gum) 4 mg BUCCAL Q2H PRN PRN Reason: Nicotine Cravings Polyethylene Glycol (Polyethylene Glycol 3350 17 Gm Powd.Pack) 17 gm PO DAILY [facility] Last Admin: 07/31/24 08:28 Dose: Not Given Tramadol HCl (Tramadol Hcl 50 Mg Tablet) 100 mg PO Q6H PRN PRN Reason: severe pain Last Admin: 08/01/24 07:18 Dose: 100 mg Trazodone HCl (Trazodone Hcl 50 Mg Tablet) 50 mg PO BEDTIME MRX1 PRN PRN Reason: Insomnia Last Admin: 07/30/24 21:19 Dose: 50 mg Allergies Allergies Allergy/AdvReac Type Severity Reaction Status Date / Time mayonnaise [MAYONNAISE] Allergy Intermediate THROAT AND Verified 07/22/24 08:50 TONGUE ITCH quetiapine [From SEROQUEL] Allergy Intermediate DYSTONIA Verified 07/22/24 08:50 cat dander [CATS] Allergy Unknown WATERY Verified 07/22/24 08:50 EYES, SNEEZING dog dander [DOG] Allergy Unknown UNKNOWN Verified 07/22/24 08:50 paroxetine [From PAXIL] Allergy Unknown FLU LIKE Verified 07/22/24 08:50 SYMPTOMS penicillin V Allergy Unknown Unknown Verified 07/22/24 08:50 Penicillins [PENICILLINS] Allergy Unknown SWELLING Verified 07/22/24 08:50 SEAFOOD Allergy Severe DIFFICULTY Uncoded 07/22/24 08:50 BREATHING Assessment & Plan Assessment & Plan (1) PTSD (post-traumatic stress disorder): Status: Acute Code(s): F43.10 - Post-traumatic stress disorder, unspecified (2) Traumatic hematoma of lower leg: Status: Acute Code(s): S80.10XA - Contusion of unspecified lower leg, initial encounter (3) Opioid use disorder, moderate, dependence: Status: Acute Code(s): F11.20 - Opioid dependence, uncomplicated (4) Cocaine abuse: Status: Acute Code(s): F14.10 - Cocaine abuse, uncomplicated (5) Benzodiazepine abuse: Status: Acute Code(s): F13.10 - Sedative, hypnotic or anxiolytic abuse, uncomplicated (6) Fentanyl use disorder, severe: Status: Acute Code(s): F11.20 - Opioid dependence, uncomplicated Plan 07/24: pt denies withdrawal Sx. reports he has not been using enough to be in withdrawal. most concerned about his leg pain. continue doxy for cellulitis, comfort meds otherwise. start prozac for depression and anxiety. 07/25: continues to deny withdrawal Sx. getting prozac. mild improvement in left leg pain, no fever this morning. continue current mgmt. 07/26: much exacerbated leg pain today, crying and holding leg. medical consult suspects abscess; surgical consult placed and pending. otherwise remains as per prior re mental status. continue current mgmt. 07/27: seen by surgery today, changed antibx to IV. no abscess, no DVT. continue current mgmt otherwise. 07/28: leg improving with IV antibx. thorazine for anxiety. otherwise continue current mgmt. 07/29: leg appears worse once again today. pt reports recent xylazine use. per surgery, continue current mgmt. no other complaints or concerns. 07/30: continue current tx plan. 07/31: continue current tx plan. attending groups. medication compliant. reports sleeping well last night. 08/01: utilizing wheel chair. Patient reports feeling okay today; continues to report sleeping well last night. denies SI/HI/VH/AH. attending groups. Patient educated on: diagnosis and medication risk/benefits Reason for continued inpatient stay Substantial Risk for: med/psych decompensation Time Spent With Patient Time: Total time managing care of this patient today _20___ minutes.
[2024-08-01] MEDS: methADONE HCl 20 MG/2 ML ORAL.CONC 115 MG PO (08:05)
[2024-08-01] MEDS: FLUoxetine HCl 20 MG CAPSULE PO (08:31)
[2024-08-01 09:27] VITALS: BMI 25.3
[2024-08-01 19:55] VITALS: BP 115/62; PULSE 75; RESP 16; TEMP 37; O2SAT 95
[2024-08-02 07:15] VITALS: BP 107/65; PULSE 67; RESP 16; TEMP 36.9; O2SAT 97
[2024-08-02] MEDS: methADONE HCl 20 MG/2 ML ORAL.CONC 115 MG PO (07:52)
[2024-08-02] MEDS: chlorproMAZINE HCl 25 MG TABLET 50 MG PO ×3 (08:07→20:47)
[2024-08-02] MEDS: hydrOXYzine HCL 25 MG TABLET PO ×2 (08:07→16:48)
[2024-08-02] MEDS: FLUoxetine HCl 20 MG CAPSULE PO (08:07)
[2024-08-02] MEDS: traMADoL HCL 50 MG TABLET 100 MG PO ×2 (08:07→16:47)
--- NOTE | 2024-08-02 13:39 | HO.PSYCHPN ---
Subjective Subjective Date of Service: 08/02/24 Reason For Visit: SI Subjective Notes: Conditional Voluntary Interim History: Active on unit, attempting to ambulate with out wheelchair. Patient c/o of leg pain; asking to be seen by surgical consult again; nursing to call. Patient reports anxiety; pt stated, now that my leg is improving, I'm starting to think about my life, my mom and living situation . denies SI/HI/VH/AH. Medication Compliance: Yes Side effects from medications: No Attending Groups: Yes Review of Systems Constitutional: Reports as per HPI Eyes: Reports as per HPI Reports as per HPI Cardiovascular: Reports as per HPI Respiratory: Reports as per HPI Gastrointestinal: Reports as per HPI Genitourinary: Reports as per HPI Musculoskeletal: Reports as per HPI Skin/Breast: Reports as per HPI Reports as per HPI Psychiatric: Reports as per HPI Endocrine: Reports as per HPI Hematologic/Lymphatic: Reports as per HPI Allergic/Immunologic: Reports as per HPI Mental Status Exam Mental Status Exam Narrative: Pt is alert and oriented; behavior is cooperative; dressed in casual attire; mood is described as anxious ; eye contact appropriate; Speech is normal rate, volume and not pressured; thought process is organized; Thought content is on tx; denies SI/HI/VH/AH. Diagnostics Vital Signs (24Hr): Vital Signs - 24 hr 08/01/24 19:55 08/02/24 07:15 Temperature 98.6 F 98.4 F Pulse Rate 75 67 Respiratory Rate 16 16 Blood Pressure 115/62 107/65 Pulse Oximetry 95 97 Oxygen Delivery Method Room Air Room Air BMI result Body Mass Index 25.3 Labs 07/26/24 09:54 07/26/24 09:54 Imaging Radiology Impressions: ITS Impressions Venous Duplex 07/22/24 11:11 IMPRESSION: No acute deep venous thrombosis involving the left lower extremity. Electronically signed by: Harrison Cedeno MD 07/22/2024 11:53 AM EST RP Venous Duplex 07/26/24 15:34 IMPRESSION: No evidence of deep venous thrombosis involving the left lower extremity. Electronically signed by: Mich Harper MD 07/26/2024 04:51 PM EST RP Medications Medications Current Medications Acetaminophen (Acetaminophen 325 Mg Tablet) 650 mg PO Q6H PRN PRN Reason: Headache/Pain Mild Scale (1-3) Last Admin: 07/30/24 21:18 Dose: 650 mg Al Hydroxide/Mg Hydroxide (Magnesium Hydrox/Alum Hydrox 30 Ml Oral.Susp) 30 ml PO Q6H PRN PRN Reason: Heartburn/Nausea Chlorpromazine HCl (Chlorpromazine Hcl 25 Mg Tablet) 50 mg PO Q4H PRN PRN Reason: anxiety Last Admin: 08/02/24 08:07 Dose: 50 mg Fluoxetine HCl (Fluoxetine Hcl 20 Mg Capsule) 20 mg PO DAILY [facility] Last Admin: 08/02/24 08:07 Dose: 20 mg Hydroxyzine HCl (Hydroxyzine Hcl 25 Mg Tablet) 25 mg PO Q6H PRN PRN Reason: Anxiety Last Admin: 08/02/24 08:07 Dose: 25 mg Ibuprofen (Ibuprofen 800 Mg Tablet) 800 mg PO Q6H PRN PRN Reason: Fever >101 or pain 0-10 Last Admin: 07/30/24 18:36 Dose: 800 mg Magnesium Hydroxide (Milk Of Magnesia 30 Ml Oral.Susp) 30 ml PO DAILY PRN PRN Reason: Constipation Methadone HCl (Methadone Hcl 20 Mg/2 Ml Oral.Conc) 115 mg PO DAILY [facility] Last Admin: 08/02/24 07:52 Dose: 115 mg Nicotine (Nicotine 21 Mg Patch.Td24) 21 mg TRANSDERMA DAILY PRN PRN Reason: nicotine craving Nicotine Polacrilex (Nicotine Polacrilex 2 Mg Gum) 4 mg BUCCAL Q2H PRN PRN Reason: Nicotine Cravings Polyethylene Glycol (Polyethylene Glycol 3350 17 Gm Powd.Pack) 17 gm PO DAILY [facility] Last Admin: 08/02/24 08:08 Dose: Not Given Tramadol HCl (Tramadol Hcl 50 Mg Tablet) 100 mg PO Q6H PRN PRN Reason: severe pain Last Admin: 08/02/24 08:07 Dose: 100 mg Trazodone HCl (Trazodone Hcl 50 Mg Tablet) 50 mg PO BEDTIME MRX1 PRN PRN Reason: Insomnia Last Admin: 07/30/24 21:19 Dose: 50 mg Allergies Allergies Allergy/AdvReac Type Severity Reaction Status Date / Time mayonnaise [MAYONNAISE] Allergy Intermediate THROAT AND Verified 07/22/24 08:50 TONGUE ITCH quetiapine [From SEROQUEL] Allergy Intermediate DYSTONIA Verified 07/22/24 08:50 cat dander [CATS] Allergy Unknown WATERY Verified 07/22/24 08:50 EYES, SNEEZING dog dander [DOG] Allergy Unknown UNKNOWN Verified 07/22/24 08:50 paroxetine [From PAXIL] Allergy Unknown FLU LIKE Verified 07/22/24 08:50 SYMPTOMS penicillin V Allergy Unknown Unknown Verified 07/22/24 08:50 Penicillins [PENICILLINS] Allergy Unknown SWELLING Verified 07/22/24 08:50 SEAFOOD Allergy Severe DIFFICULTY Uncoded 07/22/24 08:50 BREATHING Assessment & Plan Assessment & Plan (1) PTSD (post-traumatic stress disorder): Status: Acute Code(s): F43.10 - Post-traumatic stress disorder, unspecified (2) Traumatic hematoma of lower leg: Status: Acute Code(s): S80.10XA - Contusion of unspecified lower leg, initial encounter (3) Opioid use disorder, moderate, dependence: Status: Acute Code(s): F11.20 - Opioid dependence, uncomplicated (4) Cocaine abuse: Status: Acute Code(s): F14.10 - Cocaine abuse, uncomplicated (5) Benzodiazepine abuse: Status: Acute Code(s): F13.10 - Sedative, hypnotic or anxiolytic abuse, uncomplicated (6) Fentanyl use disorder, severe: Status: Acute Code(s): F11.20 - Opioid dependence, uncomplicated Plan 07/24: pt denies withdrawal Sx. reports he has not been using enough to be in withdrawal. most concerned about his leg pain. continue doxy for cellulitis, comfort meds otherwise. start prozac for depression and anxiety. 07/25: continues to deny withdrawal Sx. getting prozac. mild improvement in left leg pain, no fever this morning. continue current mgmt. 07/26: much exacerbated leg pain today, crying and holding leg. medical consult suspects abscess; surgical consult placed and pending. otherwise remains as per prior re mental status. continue current mgmt. 07/27: seen by surgery today, changed antibx to IV. no abscess, no DVT. continue current mgmt otherwise. 07/28: leg improving with IV antibx. thorazine for anxiety. otherwise continue current mgmt. 07/29: leg appears worse once again today. pt reports recent xylazine use. per surgery, continue current mgmt. no other complaints or concerns. 07/30: continue current tx plan. 07/31: continue current tx plan. attending groups. medication compliant. reports sleeping well last night. 08/01: utilizing wheel chair. Patient reports feeling okay today; continues to report sleeping well last night. denies SI/HI/VH/AH. attending groups. 08/02: Active on unit, attempting to ambulate with out wheelchair. Patient c/o of leg pain; asking to be seen by surgical consult again; nursing to call. Patient reports anxiety; pt stated, now that my leg is improving, I'm starting to think about my life, my mom and living situation . denies SI/HI/VH/AH. Continue current tx plan. Patient educated on: diagnosis and medication risk/benefits Reason for continued inpatient stay Substantial Risk for: med/psych decompensation Time Spent With Patient Time: Total time managing care of this patient today _20___ minutes.
[2024-08-02 20:00] VITALS: BP 116/60; PULSE 70; RESP 16; TEMP 36.9; O2SAT 97
[2024-08-02] MEDS: Acetaminophen 325 MG TABLET 650 MG PO (20:46)
[2024-08-02] MEDS: Ibuprofen 800 MG TABLET PO (20:46)
[2024-08-02] MEDS: traZODone HCL 50 MG TABLET PO (20:47)
[2024-08-02] MEDS: cloNIDine HCL 0.1 MG TABLET PO (20:47)
--- NOTE | 2024-08-03 00:50 | P.PNGS_ITS ---
Subjective Subjective Date of Service: 08/03/24 Interval history: pt complaining of pain and swelling still in left calf Physical Exam 2 Vital Signs: Vital Signs: Last Vital Signs Temp 98.4 F 08/02/24 20:00 Pulse 70 08/02/24 20:00 Resp 16 08/02/24 20:00 BP 116/60 08/02/24 20:00 Pulse Ox 97 08/02/24 20:00 O2 Del Method Room Air 08/02/24 20:00 BMI result Body Mass Index 25.3 Skin: Other: left calf area is soft and fluctuant with fluid under - aspiratd 40 cc of old hematoma no evidence of infection Objective Data Active Medications Acetaminophen (Acetaminophen 325 Mg Tablet) 650 mg PO Q6H PRN PRN Reason: Headache/Pain Mild Scale (1-3) Last Admin: 08/02/24 20:46 Dose: 650 mg Documented By: LELAND Al Hydroxide/Mg Hydroxide (Magnesium Hydrox/Alum Hydrox 30 Ml Oral.Susp) 30 ml PO Q6H PRN PRN Reason: Heartburn/Nausea Chlorpromazine HCl (Chlorpromazine Hcl 25 Mg Tablet) 50 mg PO Q4H PRN PRN Reason: anxiety Last Admin: 08/02/24 20:47 Dose: 50 mg Documented By: LELAND Clonidine HCl (Clonidine Hcl 0.1 Mg Tablet) 0.1 mg PO BID PRN; Protocol PRN Reason: Anxiety Last Admin: 08/02/24 20:47 Dose: 0.1 mg Documented By: LELAND Fluoxetine HCl (Fluoxetine Hcl 20 Mg Capsule) 20 mg PO DAILY [facility] Last Admin: 08/02/24 08:07 Dose: 20 mg Documented By: MUKESH Hydroxyzine HCl (Hydroxyzine Hcl 25 Mg Tablet) 25 mg PO Q6H PRN PRN Reason: Anxiety Last Admin: 08/02/24 16:48 Dose: 25 mg Documented By: MUKESH Ibuprofen (Ibuprofen 800 Mg Tablet) 800 mg PO Q6H PRN PRN Reason: Fever >101 or pain 0-10 Last Admin: 08/02/24 20:46 Dose: 800 mg Documented By: LELAND Magnesium Hydroxide (Milk Of Magnesia 30 Ml Oral.Susp) 30 ml PO DAILY PRN PRN Reason: Constipation Methadone HCl (Methadone Hcl 20 Mg/2 Ml Oral.Conc) 115 mg PO DAILY [facility] Last Admin: 08/02/24 07:52 Dose: 115 mg Documented By: MUKESH Co-signed By: CORINNA Nicotine (Nicotine 21 Mg Patch.Td24) 21 mg TRANSDERMA DAILY PRN PRN Reason: nicotine craving Nicotine Polacrilex (Nicotine Polacrilex 2 Mg Gum) 4 mg BUCCAL Q2H PRN PRN Reason: Nicotine Cravings Polyethylene Glycol (Polyethylene Glycol 3350 17 Gm Powd.Pack) 17 gm PO DAILY [facility] Last Admin: 08/02/24 08:08 Dose: Not Given Documented By: MUKESH Non-Admin Reason: Patient Refused Tramadol HCl (Tramadol Hcl 50 Mg Tablet) 100 mg PO Q6H PRN PRN Reason: severe pain Last Admin: 08/02/24 16:47 Dose: 100 mg Documented By: MUKESH Trazodone HCl (Trazodone Hcl 50 Mg Tablet) 50 mg PO BEDTIME MRX1 PRN PRN Reason: Insomnia Last Admin: 08/02/24 20:47 Dose: 50 mg Documented By: DARRIUSC Labs 07/26/24 09:54 07/26/24 09:54 Procedures Date of Service Date of Service: 08/03/24 Abscess I/D Site: lower extremity Side (if applicable): left Technique: needle aspiration Amount of fluid (mL): 40 Packing used?: none Additional comments: 40 cc of hematoma aspirated with 18 guage needle Progress Note: A&P Assessment and plan (1) Traumatic hematoma of lower leg: Status: Acute Assessment and Plan: 40 cc of old blood hematoma aspirated and pt feels better - consider ramon wraping compression from foot to above the hematoma area. any residual blood will eventually get absorbed Time Spent With Patient Time: Total time managing care of this patient today ____ minutes. Quality Stroke Does the patient have a stroke diagnosis?: No VTE Prior VTE?: No VTE Risk Level:: Surgical - low VTE Device Contraindication: Treatment Not Indicated VTE Drug Contraindication: Treatment Not Indicated
[2024-08-03 07:15] VITALS: BP 99/54; PULSE 70; RESP 14; TEMP 36.9; O2SAT 97
[2024-08-03] MEDS: methADONE HCl 20 MG/2 ML ORAL.CONC 115 MG PO (07:53)
[2024-08-03 08:27] VITALS: BP 106/59; PULSE 74
[2024-08-03] MEDS: chlorproMAZINE HCl 25 MG TABLET 50 MG PO (08:30)
[2024-08-03] MEDS: traMADoL HCL 50 MG TABLET 100 MG PO ×2 (08:30→20:09)
[2024-08-03] MEDS: FLUoxetine HCl 20 MG CAPSULE PO (08:31)
[2024-08-03] MEDS: hydrOXYzine HCL 25 MG TABLET PO ×2 (08:31→20:10)
--- NOTE | 2024-08-03 08:59 | HO.PSYCHPN ---
Subjective Subjective Date of Service: 08/03/24 Reason For Visit: SI Subjective Notes: Conditional Voluntary Interim History: Active on unit, ambulating without wheelchair. pt reports his leg is feeling a lot better after they came and saw me last night ; pt seen by surgery, please see note. Patient continues to report increased anxiety; pt stated, I'm going to call my brothers to see if I can stay there after I leave here. Yesterday she told me no . denies SI/HI/VH/AH. Increased Thorazine to 75mg PO Q6HR PRN Medication Compliance: Yes Side effects from medications: No Attending Groups: Yes Review of Systems Constitutional: Reports as per HPI Eyes: Reports as per HPI Reports as per HPI Cardiovascular: Reports as per HPI Respiratory: Reports as per HPI Gastrointestinal: Reports as per HPI Genitourinary: Reports as per HPI Musculoskeletal: Reports as per HPI Skin/Breast: Reports as per HPI Reports as per HPI Psychiatric: Reports as per HPI Endocrine: Reports as per HPI Hematologic/Lymphatic: Reports as per HPI Allergic/Immunologic: Reports as per HPI Mental Status Exam Mental Status Exam Narrative: Pt is alert and oriented; behavior is cooperative; dressed in casual attire; mood is described as anxious ; eye contact appropriate; Speech is normal rate, volume and not pressured; thought process is organized; Thought content is on tx; denies SI/HI/VH/AH. Diagnostics Vital Signs (24Hr): Vital Signs - 24 hr 08/02/24 20:00 08/03/24 07:15 08/03/24 08:27 Temperature 98.4 F 98.5 F Pulse Rate 70 70 74 Respiratory Rate 16 14 Blood Pressure 116/60 99/54 L 106/59 L Pulse Oximetry 97 97 Oxygen Delivery Method Room Air Room Air BMI result Body Mass Index 25.3 Labs 07/26/24 09:54 07/26/24 09:54 Imaging Radiology Impressions: ITS Impressions Venous Duplex 07/22/24 11:11 IMPRESSION: No acute deep venous thrombosis involving the left lower extremity. Electronically signed by: Harrison Cedeno MD 07/22/2024 11:53 AM EST RP Venous Duplex 07/26/24 15:34 IMPRESSION: No evidence of deep venous thrombosis involving the left lower extremity. Electronically signed by: Mich Harper MD 07/26/2024 04:51 PM EST RP Medications Medications Current Medications Acetaminophen (Acetaminophen 325 Mg Tablet) 650 mg PO Q6H PRN PRN Reason: Headache/Pain Mild Scale (1-3) Last Admin: 08/02/24 20:46 Dose: 650 mg Al Hydroxide/Mg Hydroxide (Magnesium Hydrox/Alum Hydrox 30 Ml Oral.Susp) 30 ml PO Q6H PRN PRN Reason: Heartburn/Nausea Chlorpromazine HCl (Chlorpromazine Hcl 25 Mg Tablet) 50 mg PO Q4H PRN PRN Reason: anxiety Last Admin: 08/03/24 08:30 Dose: 50 mg Clonidine HCl (Clonidine Hcl 0.1 Mg Tablet) 0.1 mg PO BID PRN; Protocol PRN Reason: Anxiety Last Admin: 08/02/24 20:47 Dose: 0.1 mg Fluoxetine HCl (Fluoxetine Hcl 20 Mg Capsule) 20 mg PO DAILY [facility] Last Admin: 08/03/24 08:31 Dose: 20 mg Hydroxyzine HCl (Hydroxyzine Hcl 25 Mg Tablet) 25 mg PO Q6H PRN PRN Reason: Anxiety Last Admin: 08/03/24 08:31 Dose: 25 mg Ibuprofen (Ibuprofen 800 Mg Tablet) 800 mg PO Q6H PRN PRN Reason: Fever >101 or pain 0-10 Last Admin: 08/02/24 20:46 Dose: 800 mg Magnesium Hydroxide (Milk Of Magnesia 30 Ml Oral.Susp) 30 ml PO DAILY PRN PRN Reason: Constipation Methadone HCl (Methadone Hcl 20 Mg/2 Ml Oral.Conc) 115 mg PO DAILY [facility] Last Admin: 08/03/24 07:53 Dose: 115 mg Nicotine (Nicotine 21 Mg Patch.Td24) 21 mg TRANSDERMA DAILY PRN PRN Reason: nicotine craving Nicotine Polacrilex (Nicotine Polacrilex 2 Mg Gum) 4 mg BUCCAL Q2H PRN PRN Reason: Nicotine Cravings Polyethylene Glycol (Polyethylene Glycol 3350 17 Gm Powd.Pack) 17 gm PO DAILY [facility] Last Admin: 08/03/24 08:06 Dose: Not Given Tramadol HCl (Tramadol Hcl 50 Mg Tablet) 100 mg PO Q6H PRN PRN Reason: severe pain Last Admin: 08/03/24 08:30 Dose: 100 mg Trazodone HCl (Trazodone Hcl 50 Mg Tablet) 50 mg PO BEDTIME MRX1 PRN PRN Reason: Insomnia Last Admin: 08/02/24 20:47 Dose: 50 mg Allergies Allergies Allergy/AdvReac Type Severity Reaction Status Date / Time mayonnaise [MAYONNAISE] Allergy Intermediate THROAT AND Verified 07/22/24 08:50 TONGUE ITCH quetiapine [From SEROQUEL] Allergy Intermediate DYSTONIA Verified 07/22/24 08:50 cat dander [CATS] Allergy Unknown WATERY Verified 07/22/24 08:50 EYES, SNEEZING dog dander [DOG] Allergy Unknown UNKNOWN Verified 07/22/24 08:50 paroxetine [From PAXIL] Allergy Unknown FLU LIKE Verified 07/22/24 08:50 SYMPTOMS penicillin V Allergy Unknown Unknown Verified 07/22/24 08:50 Penicillins [PENICILLINS] Allergy Unknown SWELLING Verified 07/22/24 08:50 SEAFOOD Allergy Severe DIFFICULTY Uncoded 07/22/24 08:50 BREATHING Assessment & Plan Assessment & Plan (1) MDD (major depressive disorder), recurrent episode: Status: Acute Code(s): F33.9 - Major depressive disorder, recurrent, unspecified (2) PTSD (post-traumatic stress disorder): Status: Acute Code(s): F43.10 - Post-traumatic stress disorder, unspecified (3) Traumatic hematoma of lower leg: Status: Acute Code(s): S80.10XA - Contusion of unspecified lower leg, initial encounter Assessment and Plan: 40 cc of old blood hematoma aspirated and pt feels better - consider ramon wraping compression from foot to above the hematoma area. any residual blood will eventually get absorbed (4) Opioid use disorder, moderate, dependence: Status: Acute Code(s): F11.20 - Opioid dependence, uncomplicated (5) Cocaine abuse: Status: Acute Code(s): F14.10 - Cocaine abuse, uncomplicated (6) Benzodiazepine abuse: Status: Acute Code(s): F13.10 - Sedative, hypnotic or anxiolytic abuse, uncomplicated (7) Fentanyl use disorder, severe: Status: Acute Code(s): F11.20 - Opioid dependence, uncomplicated Plan 07/24: pt denies withdrawal Sx. reports he has not been using enough to be in withdrawal. most concerned about his leg pain. continue doxy for cellulitis, comfort meds otherwise. start prozac for depression and anxiety. 07/25: continues to deny withdrawal Sx. getting prozac. mild improvement in left leg pain, no fever this morning. continue current mgmt. 07/26: much exacerbated leg pain today, crying and holding leg. medical consult suspects abscess; surgical consult placed and pending. otherwise remains as per prior re mental status. continue current mgmt. 07/27: seen by surgery today, changed antibx to IV. no abscess, no DVT. continue current mgmt otherwise. 07/28: leg improving with IV antibx. thorazine for anxiety. otherwise continue current mgmt. 07/29: leg appears worse once again today. pt reports recent xylazine use. per surgery, continue current mgmt. no other complaints or concerns. 07/30: continue current tx plan. 07/31: continue current tx plan. attending groups. medication compliant. reports sleeping well last night. 08/01: utilizing wheel chair. Patient reports feeling okay today; continues to report sleeping well last night. denies SI/HI/VH/AH. attending groups. 08/02: Active on unit, attempting to ambulate with out wheelchair. Patient c/o of leg pain; asking to be seen by surgical consult again; nursing to call. Patient reports anxiety; pt stated, now that my leg is improving, I'm starting to think about my life, my mom and living situation . denies SI/HI/VH/AH. Continue current tx plan. 08/03: Increased Thorazine to 75mg PO Q6HR PRN Patient educated on: diagnosis, medication risk/benefits and therapeutic strategies Reason for continued inpatient stay Substantial Risk for: med/psych decompensation Time Spent With Patient Time: Total time managing care of this patient today _20___ minutes.
[2024-08-03] MEDS: chlorproMAZINE HCl 25 MG TABLET 75 MG PO ×2 (13:04→20:11)
[2024-08-03 20:00] VITALS: BP 118/65; PULSE 86; RESP 14; TEMP 37.1; O2SAT 98
[2024-08-03] MEDS: traZODone HCL 50 MG TABLET PO (20:09)
[2024-08-03] MEDS: cloNIDine HCL 0.1 MG TABLET PO (20:10)
[2024-08-04 07:15] VITALS: BP 86/52; PULSE 66; RESP 12; TEMP 36.9; O2SAT 95
[2024-08-04] MEDS: methADONE HCl 20 MG/2 ML ORAL.CONC 115 MG PO (07:53)
[2024-08-04 08:14] VITALS: BP 112/74; PULSE 93
[2024-08-04] MEDS: chlorproMAZINE HCl 25 MG TABLET 75 MG PO ×2 (08:40→16:20)
[2024-08-04] MEDS: FLUoxetine HCl 20 MG CAPSULE PO (08:40)
[2024-08-04] MEDS: hydrOXYzine HCL 25 MG TABLET PO ×2 (08:40→20:26)
[2024-08-04] MEDS: traMADoL HCL 50 MG TABLET 100 MG PO ×2 (08:40→16:20)
[2024-08-04] MEDS: Nicotine Polacrilex 2 MG GUM 4 MG BUCCAL (08:43)
--- NOTE | 2024-08-04 09:14 | P.PNPSI_ITS ---
Subjective Subjective Date of Service: 08/04/24 Reason For Visit: SI Subjective Notes: Conditional Voluntary Interim History: Active on unit, keeping to self. Patient continues to report anxiety; he reports increase in thorazine being helpful. denies SI/HI/VH/AH. Reports he is concerned where he will go after discharge; states he would prefer to not go to a residential. Medication Compliance: Yes Side effects from medications: No Attending Groups: Yes Review of Systems Constitutional: Reports as per HPI Eyes: Reports as per HPI Reports as per HPI Cardiovascular: Reports as per HPI Respiratory: Reports as per HPI Gastrointestinal: Reports as per HPI Genitourinary: Reports as per HPI Musculoskeletal: Reports as per HPI Skin/Breast: Reports as per HPI Reports as per HPI Psychiatric: Reports as per HPI Endocrine: Reports as per HPI Hematologic/Lymphatic: Reports as per HPI Allergic/Immunologic: Reports as per HPI Mental Status Exam Mental Status Exam Narrative: Pt is alert and oriented; behavior is cooperative; dressed in casual attire; mood is described as anxious ; eye contact appropriate; Speech is normal rate, volume and not pressured; thought process is organized; Thought content is on tx; denies SI/HI/VH/AH. Diagnostics Vital Signs (24Hr): Vital Signs - 24 hr 08/03/24 20:00 08/04/24 07:15 08/04/24 08:14 Temperature 98.7 F 98.5 F Pulse Rate 86 66 93 Respiratory Rate 14 12 Blood Pressure 118/65 86/52 L 112/74 Pulse Oximetry 98 95 Oxygen Delivery Method Room Air Room Air BMI result Body Mass Index 25.3 Labs 07/26/24 09:54 07/26/24 09:54 Imaging Radiology Impressions: ITS Impressions Venous Duplex 07/22/24 11:11 IMPRESSION: No acute deep venous thrombosis involving the left lower extremity. Electronically signed by: Harrison Cedeno MD 07/22/2024 11:53 AM EST RP Venous Duplex 07/26/24 15:34 IMPRESSION: No evidence of deep venous thrombosis involving the left lower extremity. Electronically signed by: Mich Harper MD 07/26/2024 04:51 PM EST RP Medications Medications Current Medications Acetaminophen (Acetaminophen 325 Mg Tablet) 650 mg PO Q6H PRN PRN Reason: Headache/Pain Mild Scale (1-3) Last Admin: 08/02/24 20:46 Dose: 650 mg Al Hydroxide/Mg Hydroxide (Magnesium Hydrox/Alum Hydrox 30 Ml Oral.Susp) 30 ml PO Q6H PRN PRN Reason: Heartburn/Nausea Chlorpromazine HCl (Chlorpromazine Hcl 25 Mg Tablet) 75 mg PO Q6H PRN PRN Reason: anxiety Last Admin: 08/04/24 08:40 Dose: 75 mg Clonidine HCl (Clonidine Hcl 0.1 Mg Tablet) 0.1 mg PO BID PRN; Protocol PRN Reason: Anxiety Last Admin: 08/03/24 20:10 Dose: 0.1 mg Fluoxetine HCl (Fluoxetine Hcl 20 Mg Capsule) 20 mg PO DAILY [facility] Last Admin: 08/04/24 08:40 Dose: 20 mg Hydroxyzine HCl (Hydroxyzine Hcl 25 Mg Tablet) 25 mg PO Q6H PRN PRN Reason: Anxiety Last Admin: 08/04/24 08:40 Dose: 25 mg Ibuprofen (Ibuprofen 800 Mg Tablet) 800 mg PO Q6H PRN PRN Reason: Fever >101 or pain 0-10 Last Admin: 08/02/24 20:46 Dose: 800 mg Magnesium Hydroxide (Milk Of Magnesia 30 Ml Oral.Susp) 30 ml PO DAILY PRN PRN Reason: Constipation Methadone HCl (Methadone Hcl 20 Mg/2 Ml Oral.Conc) 115 mg PO DAILY [facility] Last Admin: 08/04/24 07:53 Dose: 115 mg Nicotine (Nicotine 21 Mg Patch.Td24) 21 mg TRANSDERMA DAILY PRN PRN Reason: nicotine craving Nicotine Polacrilex (Nicotine Polacrilex 2 Mg Gum) 4 mg BUCCAL Q2H PRN PRN Reason: Nicotine Cravings Last Admin: 08/04/24 08:43 Dose: 4 mg Polyethylene Glycol (Polyethylene Glycol 3350 17 Gm Powd.Pack) 17 gm PO DAILY [facility] Last Admin: 08/03/24 08:06 Dose: Not Given Tramadol HCl (Tramadol Hcl 50 Mg Tablet) 100 mg PO Q6H PRN PRN Reason: severe pain Last Admin: 08/04/24 08:40 Dose: 100 mg Trazodone HCl (Trazodone Hcl 50 Mg Tablet) 50 mg PO BEDTIME MRX1 PRN PRN Reason: Insomnia Last Admin: 08/03/24 20:09 Dose: 50 mg Allergies Allergies Allergy/AdvReac Type Severity Reaction Status Date / Time mayonnaise [MAYONNAISE] Allergy Intermediate THROAT AND Verified 07/22/24 08:50 TONGUE ITCH quetiapine [From SEROQUEL] Allergy Intermediate DYSTONIA Verified 07/22/24 08:50 cat dander [CATS] Allergy Unknown WATERY Verified 07/22/24 08:50 EYES, SNEEZING dog dander [DOG] Allergy Unknown UNKNOWN Verified 07/22/24 08:50 paroxetine [From PAXIL] Allergy Unknown FLU LIKE Verified 07/22/24 08:50 SYMPTOMS penicillin V Allergy Unknown Unknown Verified 07/22/24 08:50 Penicillins [PENICILLINS] Allergy Unknown SWELLING Verified 07/22/24 08:50 SEAFOOD Allergy Severe DIFFICULTY Uncoded 07/22/24 08:50 BREATHING Assessment & Plan Assessment & Plan (1) MDD (major depressive disorder), recurrent episode: Status: Acute Code(s): F33.9 - Major depressive disorder, recurrent, unspecified (2) PTSD (post-traumatic stress disorder): Status: Acute Code(s): F43.10 - Post-traumatic stress disorder, unspecified (3) Traumatic hematoma of lower leg: Status: Acute Code(s): S80.10XA - Contusion of unspecified lower leg, initial encounter Assessment and Plan: 40 cc of old blood hematoma aspirated and pt feels better - consider ramon wraping compression from foot to above the hematoma area. any residual blood will eventually get absorbed (4) Opioid use disorder, moderate, dependence: Status: Acute Code(s): F11.20 - Opioid dependence, uncomplicated (5) Cocaine abuse: Status: Acute Code(s): F14.10 - Cocaine abuse, uncomplicated (6) Benzodiazepine abuse: Status: Acute Code(s): F13.10 - Sedative, hypnotic or anxiolytic abuse, uncomplicated (7) Fentanyl use disorder, severe: Status: Acute Code(s): F11.20 - Opioid dependence, uncomplicated Plan 07/24: pt denies withdrawal Sx. reports he has not been using enough to be in withdrawal. most concerned about his leg pain. continue doxy for cellulitis, comfort meds otherwise. start prozac for depression and anxiety. 07/25: continues to deny withdrawal Sx. getting prozac. mild improvement in left leg pain, no fever this morning. continue current mgmt. 07/26: much exacerbated leg pain today, crying and holding leg. medical consult suspects abscess; surgical consult placed and pending. otherwise remains as per prior re mental status. continue current mgmt. 07/27: seen by surgery today, changed antibx to IV. no abscess, no DVT. continue current mgmt otherwise. 07/28: leg improving with IV antibx. thorazine for anxiety. otherwise continue current mgmt. 07/29: leg appears worse once again today. pt reports recent xylazine use. per surgery, continue current mgmt. no other complaints or concerns. 07/30: continue current tx plan. 07/31: continue current tx plan. attending groups. medication compliant. reports sleeping well last night. 08/01: utilizing wheel chair. Patient reports feeling okay today; continues to report sleeping well last night. denies SI/HI/VH/AH. attending groups. 08/02: Active on unit, attempting to ambulate with out wheelchair. Patient c/o of leg pain; asking to be seen by surgical consult again; nursing to call. Patient reports anxiety; pt stated, now that my leg is improving, I'm starting to think about my life, my mom and living situation . denies SI/HI/VH/AH. Continue current tx plan. 08/03: Increased Thorazine to 75mg PO Q6HR PRN 08/04: Increase in throazine helpful. worried where he will go after discharge. Patient educated on: medication risk/benefits Reason for continued inpatient stay Substantial Risk for: med/psych decompensation Time Spent With Patient Time: Total time managing care of this patient today _20___ minutes.
[2024-08-04 20:00] VITALS: BP 90/60; PULSE 68; RESP 16; TEMP 36.1; O2SAT 97
[2024-08-04] MEDS: traZODone HCL 50 MG TABLET PO (20:25)
[2024-08-04] MEDS: Acetaminophen 325 MG TABLET 650 MG PO (20:25)
[2024-08-04] MEDS: Ibuprofen 800 MG TABLET PO (20:26)
[2024-08-04] MEDS: cloNIDine HCL 0.1 MG TABLET PO (20:26)
[2024-08-05] MEDS: methADONE HCl 20 MG/2 ML ORAL.CONC 115 MG PO (07:53)
[2024-08-05 08:00] VITALS: BP 93/52; PULSE 61; TEMP 36.4; O2SAT 97
[2024-08-05] MEDS: FLUoxetine HCl 20 MG CAPSULE PO (08:21)
[2024-08-05] MEDS: chlorproMAZINE HCl 25 MG TABLET 75 MG PO ×3 (08:22→20:38)
[2024-08-05] MEDS: hydrOXYzine HCL 25 MG TABLET PO ×2 (08:22→14:12)
[2024-08-05] MEDS: traMADoL HCL 50 MG TABLET 100 MG PO (08:22)
[2024-08-05] MEDS: Nicotine Polacrilex 2 MG GUM 4 MG BUCCAL (08:48)
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
[2024-08-05] MEDS: traMADoL HCL 50 MG TABLET 25 MG PO ×2 (14:11→20:41)
[2024-08-05 20:32] VITALS: BP 101/60; PULSE 74; RESP 16; TEMP 36.9; O2SAT 94
[2024-08-05] MEDS: traZODone HCL 50 MG TABLET PO (20:37)
[2024-08-05] MEDS: Ibuprofen 800 MG TABLET PO (20:38)
[2024-08-05] MEDS: cloNIDine HCL 0.1 MG TABLET PO (20:38)
[2024-08-06 08:00] VITALS: BP 97/60; PULSE 65; TEMP 37; O2SAT 96
[2024-08-06] MEDS: methADONE HCl 20 MG/2 ML ORAL.CONC 115 MG PO (08:00)
[2024-08-06] MEDS: hydrOXYzine HCL 25 MG TABLET PO (08:49)
[2024-08-06] MEDS: chlorproMAZINE HCl 25 MG TABLET 75 MG PO (08:49)
[2024-08-06] MEDS: traMADoL HCL 50 MG TABLET 25 MG PO (08:50)
[2024-08-06] MEDS: FLUoxetine HCl 20 MG CAPSULE PO (08:51)
== END 2024-08-06 10:45 | disposition home or self-care (01) | DRG 751 ==
LOC: HO.ED 07-23 09:28 → HO.PADLT16 07-23 16:25
PROVIDERS: Nurse Practitioner Acute Care; Physician Assistant; Physician Assistant Medical; Admitting Provider Psychiatry & Neurology Psychiatry; Emergency Provider Emergency Medicine Emergency Medical Services; Visit Provider Psychiatry & Neurology Psychiatry
DX: F33.9 Major depressive disorder, recurrent, unspecified (principal); R45.851 Suicidal ideations; L03.116 Cellulitis of left lower limb; F11.20 Opioid dependence, uncomplicated; F17.210 Nicotine dependence, cigarettes, uncomplicated; S80.10XA Contusion of unspecified lower leg, initial encounter; X58.XXXA Exposure to other specified factors, initial encounter; F13.10 Sedative, hypnotic or anxiolytic abuse, uncomplicated; F14.10 Cocaine abuse, uncomplicated; F19.94 Other psychoactive substance use, unspecified with psychoactive substance-induced mood disorder; F43.12 Post-traumatic stress disorder, chronic; J45.20 Mild intermittent asthma, uncomplicated; Z59.02 Unsheltered homelessness; Z71.6 Tobacco abuse counseling; Z91.52 Personal history of nonsuicidal self-harm; Z79.899 Other long term (current) drug therapy
CPT/HCPCS: 36415; 80048; 80053; 80307; 81001; 83605; 85025; 85027; 85652; 86140; 87040; 93005; 93971; 99285; J0736; S9485

== ENCOUNTER → 2024-07-22 09:40 | Outpatient (BNV) | payer MEDICAID, SELFPAY | PROVIDERS: Emergency Provider Emergency Medicine Emergency Medical Services; Visit Provider Radiology Diagnostic Radiology | DX: M79.605 Pain in left leg (principal); R60.0 Localized edema | CPT/HCPCS: 93971 ==

== ENCOUNTER → 2024-07-23 08:45 | Outpatient (BNV) | payer MEDICAID, SELFPAY | PROVIDERS: Admitting Provider Psychiatry & Neurology Psychiatry; Emergency Provider Emergency Medicine Emergency Medical Services; Visit Provider Internal Medicine Cardiovascular Disease | DX: R45.851 Suicidal ideations (principal); R94.31 Abnormal electrocardiogram [ECG] [EKG] | CPT/HCPCS: 93010 ==

== ENCOUNTER → 2024-07-23 13:16 | Outpatient (BNV) | payer OTHER, SELFPAY | PROVIDERS: Admitting Provider Psychiatry & Neurology Psychiatry; Emergency Provider Emergency Medicine Emergency Medical Services; Visit Provider Psychiatry & Neurology Psychiatry | DX: F33.2 Major depressive disorder, recurrent severe without psychotic features (principal); F11.20 Opioid dependence, uncomplicated; F43.11 Post-traumatic stress disorder, acute; L03.90 Cellulitis, unspecified | CPT/HCPCS: 99231; 99232; 99233 ==

== ENCOUNTER → 2024-07-23 13:16 | Outpatient (BNV) | payer MEDICAID, SELFPAY | PROVIDERS: Admitting Provider Psychiatry & Neurology Psychiatry; Emergency Provider Emergency Medicine Emergency Medical Services; Visit Provider Surgery | DX: S80.12XA Contusion of left lower leg, initial encounter (principal) | CPT/HCPCS: 10160; 99222; 99232 ==

== ENCOUNTER → 2024-07-23 13:16 | Outpatient (BNV) | payer MEDICAID, SELFPAY | PROVIDERS: Admitting Provider Psychiatry & Neurology Psychiatry; Emergency Provider Emergency Medicine Emergency Medical Services; Visit Provider Physician Assistant | DX: L03.90 Cellulitis, unspecified (principal) | CPT/HCPCS: 99222 ==

== ENCOUNTER 2024-08-07 22:12 | Inpatient (IN) | payer MEDICAID, OTHER, SELFPAY ==
[2024-08-07 22:15] VITALS: BP 113/73; PULSE 89; RESP 18; TEMP 36.4; O2SAT 95; BMI 25.3
--- NOTE | 2024-08-07 22:22 | ED.GENADULT ---
HPI - General Adult General Chief complaint: Psychiatric Symptoms Stated complaint: crisis Time Seen by Provider: 08/07/24 23:10 Source: patient Limitations: no limitations History of Present Illness ED Provider: HPI narrative: Patient's history of substance abuse use heroin and cocaine does not have any psychiatrist to follow was in police custody for 8 months released 2 months ago feel more depressed feels suicidal with plan to get shot by police no hallucinations or delusion Related Data Home Medications ?Medication ?Instructions ?Recorded ?Confirmed methadone 10 mg/mL oral 115 mg PO DAILY 07/22/24 08/08/24 concentrate (Methadone Intensol) Previous Rx's ?Medication ?Instructions ?Recorded chlorpromazine 25 mg tablet 75 mg (3 x 25 mg) PO TID PRN 08/05/24 anxiety 30 days #270 tabs fluoxetine 20 mg capsule 20 mg PO DAILY 30 days #30 caps 08/05/24 naloxone 4 mg/actuation nasal 4 mg intranasal Q2M PRN opioid 08/05/24 spray (Narcan) overdose 1 day #2 ea nicotine (polacrilex) 2 mg gum 4 mg buccal Q2H PRN Nicotine 08/05/24 Cravings 30 days #100 ea Allergies Allergy/AdvReac Type Severity Reaction Status Date / Time mayonnaise [MAYONNAISE] Allergy Intermediate THROAT AND Verified 08/07/24 22:20 TONGUE ITCH quetiapine [From SEROQUEL] Allergy Intermediate DYSTONIA Verified 08/07/24 22:20 cat dander [CATS] Allergy Unknown WATERY Verified 08/07/24 22:20 EYES, SNEEZING dog dander [DOG] Allergy Unknown UNKNOWN Verified 08/07/24 22:20 paroxetine [From PAXIL] Allergy Unknown FLU LIKE Verified 08/07/24 22:20 SYMPTOMS penicillin V Allergy Unknown Unknown Verified 08/07/24 22:20 Penicillins [PENICILLINS] Allergy Unknown SWELLING Verified 08/07/24 22:20 SEAFOOD Allergy Severe DIFFICULTY Uncoded 08/07/24 22:20 BREATHING Review of Systems Review of Systems: Yes all other systems are reviewed and are negative PMFSH Past Medical History Medical History MDD (major depressive disorder), recurrent episode Cellulitis Depression Polysubstance abuse Knee cartilage, torn, right ACL (anterior cruciate ligament) rupture Asthma Hepatitis C Hepatitis C antibody positive in blood Social History Social History Household Members: None Household Members Other:: brother Housing: Homeless Do you presently have visiting nurse or other home services: No Unable to assess alcohol history related to: Unknown Alcohol intake: former Comment: pt on 5 min safety checks Patient Tobacco Use Status: Current everyday Tobacco user Tobacco use type: Cigarette Cigarette Packs Per Day: 10 Cigarettes Per Day: 10 Years Smoked: 15 e-Cigarette/Vaping Use: Never Used Second Hand Smoke Exposure: No Use of substances other than those prescribed or required for medical reasons: Yes Substance Use Type: Heroin Substance Use Frequency: Chronic Longstanding Last Used Substance: Days (ago) Advance Directives: No Advance Directives Information Provided: No Do you have a plan to hurt others: No Plan service: No Sexual orientation: Straight/Heterosexual Physical Exam ED Vital Signs: Vital Signs - 24 hr 08/08/24 10:55 08/08/24 15:30 08/08/24 21:21 Temperature 98.4 F 98.2 F 98.5 F Pulse Rate 62 59 60 Respiratory Rate 16 15 16 Blood Pressure 92/52 L 106/60 106/66 Pulse Oximetry 96 96 97 Oxygen Delivery Method Room Air Room Air Room Air BMI result Body Mass Index 25.3 Appearance: Alert. Oriented X3. No acute distress. Eyes: PERRLA, No Nystagmus ENT: Pharynx normal. Oral Mucosa moist Neck: Normal inspection. Neck supple. CVS: Normal heart rate and rhythm. Pulses normal. Respiratory: No respiratory distress. Equal air entry bilateral, no wheezing/rales/rhonchi Abdomen: Soft and nontender. Bowel sounds are present, no mass palpable, no CVA tenderness Skin: Skin warm and dry. Normal skin color. Normal skin turgor. Extremities: No lower extremity edema. No calf tenderness psych: Depressed with suicidal ideation likely no hallucination/ delusion Neuro: Oriented X 3. No motor deficit. No sensory deficit.No cerebellar signs , cranial nerves II-XII intact Course Course Course Narrative: This is an RME done by JACKIE Balbuena: Additional HPI, ROS, PE not included below will be deferred to primary provider. 39-year-old male history of polysubstance abuse on methadone, asthma, PTSD presenting with suicidal ideation without particular plan. Reports he last used heroin a few days ago. Not homicidal. Denies medical complaints at this time. Appearance: Alert.? Oriented X3.? No acute cardiopulmonary distress distress.? Head: Normocephalic, atraumatic, no step-offs or deformities ENT: Pharynx normal.??External ears normal, TMs normal bilaterally and EAC's normal. No pain with manipulation of external ears bilaterally. No mastoid tenderness. Respiratory: No respiratory distress.? Abdomen: Soft and nontender.? Skin: ? Normal skin color. Extremities: 5/5 strength to bilateral upper and lower extremities Back: No midline tenderness, no C-spine tenderness, full range of motion, No CVA tenderness bilaterally Neuro: Oriented X 3.? No motor deficit.? No sensory deficit. Reevaluation(s) Reevaluation #1: 0922 08/08/2024 ---> Observation continues. Patient awaiting CARE team evaluation. Subha Lawson PA-C. Medications Administered Generic Name Dose Route Start Last Admin Trade Name Freq PRN Reason Stop Dose Admin Methadone HCl 115 mg 08/09/24 09:00 08/08/24 17:40 Methadone Hcl 20 Mg/2 Ml Oral.Conc PO 115 mg DAILY GENARO Administration Discontinued Medications Generic Name Dose Route Start Last Admin Trade Name Freq PRN Reason Stop Dose Admin Ibuprofen 600 mg 08/08/24 08:44 08/08/24 08:48 Ibuprofen 600 Mg Tablet PO 08/08/24 08:45 600 mg ONCE ONE Administration Ibuprofen 600 mg 08/08/24 17:49 08/08/24 18:08 Ibuprofen 600 Mg Tablet PO 08/08/24 17:50 600 mg ONCE ONE Administration Medical Decision Making Medical Decision Making [facility] Narrative: Patient's depression with substance abuse seen by care team plan for inpatient dual diagnose for drug abuse and depression EKG: Sinus rhythm, HR- 64, no STEMI, QTC - 513 and QT-498 would proceed with caution when using any medication that is known to prolonged QT and QTC. 08/09/2024 at 07:00 hours,Dr. Ronald Rodriguez's note Physician observation continued 39-year-old male who presents emergency department for evaluation of suicidal ideation and substance use disorder. Patient's tox screen was positive for opiates, methadone, fentanyl, cocaine. Patient was been seen by the care team and the patient was a dual diagnosis bed search. No reported incidents on this patient by the overnight staff. Patient will remain in the emergency department [facility] until disposition can be determined or until patient's symptoms improve over time. Lab Data MDM Lab Attestation statement: I reviewed the patient's lab results. 08/07/24 22:21 08/07/24 22:21 Labs: Lab Results 08/07/24 08/07/24 Range/Units 22:21 22:25 WBC 15.7 H (4.8-10.8) X10*3/uL RBC 3.76 L (4.60-5.80) X10*6/uL Hgb 11.0 L (14.0-18.0) g/dl Hct 32.8 L (42.0-52.0) % MCV 87.2 (80.0-98.0) fL MCH 29.3 (27.0-33.0) pg MCHC 33.5 (31.0-36.0) g/dl RDW 12.4 (11.0-16.0) % Plt Count 255 D (160-400) X10*3/uL MPV 9.8 (9.4-12.4) fL Immature Gran % (Auto) 0.4 (0.0-0.4) % Neut % (Auto) 88.2 H (45-73) % Lymph % (Auto) 6.0 L (20-40) % [place] % (Auto) 5.0 (2-11) % Eos % (Auto) 0.1 (0-4) % Baso % (Auto) 0.3 (0-2) % Lymph # (Auto) 0.9 L (1.2-4.9) X10*3/uL [place] # (Auto) 0.8 (0.1-1.2) X10*3/uL Eos # (Auto) 0.0 (0.0-0.4) X10*3/uL Baso # (Auto) 0.1 (0.0-0.2) X10*3/uL Abs Immat Gran (auto) 0.06 H (0.00-0.03) X10*3/uL Absolute Neuts (auto) 13.8 H (2.0-8.3) x10*3/uL Absolute Nucleated RBC 0.000 (0.0-0.012) X10*3/uL Nucleated RBC % (auto) 0.0 (0.0-0.2) /100WBC Sodium 140 (135-145) mmol/L Potassium 4.0 (3.3-5.1) mmol/L Chloride 104 (96-108) mmol/L Carbon Dioxide 24 (22-29) mmol/L Anion Gap 16 (12-20) BUN 17 H (9-16) mg/dL Creatinine 0.85 (0.5-1.4) mg/dL Estim Creat Clear Calc 124.2 Estimated GFR > 60 Random Glucose 103 (60-115) mg/dL Calcium 9.4 D (8.4-10.2) mg/dL Total Bilirubin 0.5 (0.0-1.0) mg/dL AST 142 H (5-37) U/L ALT 44 H (0-40) U/L Alkaline Phosphatase 63 (39-117) U/L Total Protein 7.3 (6.5-8.0) g/dL Albumin 4.3 (3.5-5.0) g/dL Urine Color Yellow Urine Appearance Clear Urine pH 5.5 (5.0-9.0) Ur Specific [place] >= 1.030 H (1.005-1.025) Urine Protein Trace (Neg-Trace) mg/dL Urine Glucose (UA) Negative (Negative) mg/dL Urine Ketones Trace (Negative) mg/dL Urine Blood Negative (Negative) Urine Nitrite Negative (Negative) Ur Leukocyte Esterase Negative (Negative) Salicylates < 5.0 L (15-30) mg/dL Urine Opiates Screen POSITIVE H (Not Detect) Ur Buprenorphine Scrn Not Detected (Not Detect) ng/mL Ur Oxycodone Screen Not Detected (Not Detect) ng/mL Urine Methadone Screen Positive H (Not Detect) ng/mL Urine Fentanyl Screen POSITIVE H (Not Detect) Acetaminophen < 3 (<30) mcg/mL Ur Barbiturates Screen Not Detected (Not Detect) Ur Phencyclidine Scrn Not Detected (Not Detect) Ur Amphetamines Screen Not Detected (Not Detect) U Benzodiazepines Scrn Not Detected (Not Detect) Urine Cocaine Screen POSITIVE H (Not Detect) U Marijuana (THC) Screen Not Detected (Not Detect) Ethyl Alcohol < 10 mg/dL Discharge Plan Discharge Clinical Impression: Polysubstance (including opioids) dependence, daily use, Depression with suicidal ideation Patient Disposition: Still a Patient Prescriptions: No Action methadone [Methadone Intensol] 10 mg/mL Concentrate 115 mg PO DAILY nicotine (polacrilex) 2 mg Gum 4 mg buccal Q2H PRN (Reason: Nicotine Cravings) 30 Days Qty: 100 0RF chlorpromazine 25 mg Tablet 75 mg PO TID PRN (Reason: anxiety) 30 Days Qty: 270 0RF fluoxetine 20 mg Capsule 20 mg PO DAILY 30 Days Qty: 30 0RF naloxone [Narcan] 4 mg/actuation spray,non-aerosol 4 mg intranasal Q2M PRN (Reason: opioid overdose) 1 Days Qty: 2 0RF Rx Instructions: spray 1 dose into ONE nostril; alternate nostrils w each dose until help arrives Referrals: Molly Ford MD [Primary Care Provider] - Interventions: [place]-Suicide Risk Severity Scale Last Done: 08/09/24 05:08 Print Language: Romanian
[2024-08-07 22:26] LABS: MANUAL DIFF FLAG NO
[2024-08-07 22:28] LABS: Basophils Absolute Auto 0.1 X10*3/uL (0.0-0.2); Basophils Percent Auto 0.3 % (0-2); Eosinophils Percent Auto 0.1 % (0-4); Hematocrit 32.8 % (42.0-52.0); Imm Gran Abs Auto 0.06 X10*3/uL (0.00-0.03); Imm Gran Pct Auto 0.4 % (0.0-0.4); Lymphocytes Absolute Auto 0.9 X10*3/uL (1.2-4.9); Mean Corpuscular HGB Conc 33.5 g/dl (31.0-36.0); Mean Corpuscular Hemoglobin 29.3 pg (27.0-33.0); Mean Corpuscular Volume 87.2 fL (80.0-98.0); Mean Platelet Volume 9.8 fL (9.4-12.4); Monocytes Absolute Auto 0.8 X10*3/uL (0.1-1.2); Neutrophils Absolute Auto 13.8 x10*3/uL (2.0-8.3); Neutrophils Percent Auto 88.2 % (45-73); Platelet Count 255 X10*3/uL (160-400); Red Blood Count 3.76 X10*6/uL (4.60-5.80); Red Cell Distribution Width 12.4 % (11.0-16.0); White Blood Count 15.7 X10*3/uL (4.8-10.8)
[2024-08-07 22:32] LABS: Appearance Urine Clear; Color Urine Yellow; Glucose Urine UA Negative (Negative); Leukocyte Esterase Urine Negative (Negative); Nitrite Urine Negative (Negative); PH 5.5 (5.0-9.0); Specific Gravity - Urine >= 1.030 (1.005-1.025); Urine Blood Negative (Negative); Urine Ketones Trace mg/dL (Negative); Urine Protein Trace mg/dL (Neg-Trace)
--- NOTE | 2024-08-07 22:35 | MHC.EDTECH ---
Patient brought into triage area,labs,and urine obtained and sent to lab.
[2024-08-07 22:44] LABS: Amphetamine Screen Urine Not Detected (Not Detect); Barbiturates, Urine Not Detected (Not Detect); Benzodiazepines Screen Urine Not Detected (Not Detect); Buprenorphine Scr Not Detected (Not Detect); Cannabinoid Screen Urine Not Detected (Not Detect); Cocaine Screen Urine POSITIVE (Not Detect); Fentanyl, urine POSITIVE (Not Detect); Methadone Screen, Urine Positive (Not Detect); Opiate Screen Urine POSITIVE (Not Detect); Oxycodone Screen Urine Not Detected (Not Detect); Phencyclidine Screen Urine Not Detected (Not Detect)
[2024-08-07 22:47] LABS: Acetaminophen LAB < 3 mcg/mL (<30); Alanine Aminotransferase 44 U/L (0-40); Albumin Level 4.3 g/dL (3.5-5.0); Alkaline Phosphatase 63 U/L (39-117); Anion Gap 16 (12-20); Aspartate Amino Transferase 142 U/L (5-37); Bilirubin Total 0.5 mg/dL (0.0-1.0); Blood Urea Nitrogen 17 mg/dL (9-16); Calcium 9.4 mg/dL (8.4-10.2); Carbon Dioxide 24 mmol/L (22-29); Chloride 104 mmol/L (96-108); Creatinine Clr Calc Pharmacy 124.2; Estimated Glomerular Filt Rate > 60; Ethanol < 10 mg/dL; Glucose Random 103 mg/dL (60-115); Salicylate < 5.0 mg/dL (15-30); Sodium 140 mmol/L (135-145); Total Protein 7.3 g/dL (6.5-8.0)
--- NOTE | 2024-08-08 06:40 | PC.NURSE ---
pt is resting comfortably on stretcher in 19H. sitter at bedside. pt seen by care team and is a dual Dx bedsearch for SI and recovery from substance abuse. pt calm, cooperative, ambulatory independently. plan of care ongoing
--- NOTE | 2024-08-08 07:58 | ECG_ITS ---
Test Reason : BEHAVIORAL HEALTH ADMISSION Blood Pressure : / mmHG Vent. Rate : 064 BPM Atrial Rate : 064 BPM P-R Int : 132 ms QRS Dur : 072 ms QT Int : 498 ms P-R-T Axes : 062 047 049 degrees QTc Int : 513 ms Sinus rhythm with Premature supraventricular complexes Prolonged QT Abnormal ECG When compared with ECG of 23-JUL-2024 08:45, Premature supraventricular complexes are now Present Vent. rate has decreased BY 36 BPM Nonspecific T wave abnormality no longer evident in Inferior leads T wave amplitude has increased in Lateral leads Referred By: Patricio Sandoval Electronically Signed By:Rory Duncan
[2024-08-08] MEDS: Ibuprofen 600 MG TABLET PO ×2 (08:48→18:08)
[2024-08-08 10:55] VITALS: BP 92/52; PULSE 62; RESP 16; TEMP 36.9; O2SAT 96
[2024-08-08 15:30] VITALS: BP 106/60; PULSE 59; RESP 15; TEMP 36.8; O2SAT 96
--- NOTE | 2024-08-08 16:24 | HE.PHANOTE ---
METHADONE CONFIRMATION FORM RECEIVED LAST DOSE 115MG ON 08/07 FROM [facility]
--- NOTE | 2024-08-08 17:39 | MHC.CARE ---
Care team disposition is pending a psychiatric consultation. Per psychiatry he will be seen by psych consult tomorrow therefore, a formal disposition will be made following their completed evaluation. First service parts coordinator and RN in pod made aware and further follow up will occur as needed moving forward.
[2024-08-08] MEDS: methADONE HCl 20 MG/2 ML ORAL.CONC 115 MG PO (17:40)
[2024-08-08 21:21] VITALS: BP 106/66; PULSE 60; RESP 16; TEMP 36.9; O2SAT 97
[2024-08-09 09:45] VITALS: BP 103/63; PULSE 62; RESP 18; TEMP 36.9; O2SAT 95
[2024-08-09] MEDS: methADONE HCl 20 MG/2 ML ORAL.CONC 115 MG PO (09:48)
[2024-08-09] MEDS: FLUoxetine HCl 20 MG CAPSULE PO (09:56)
[2024-08-09 11:49] VITALS: BP 132/76; PULSE 63; RESP 15; TEMP 37; O2SAT 97
[2024-08-09 11:50] VITALS: BMI 23.8
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
[2024-08-09] MEDS: hydrOXYzine HCL 25 MG TABLET PO (13:43)
[2024-08-09] MEDS: chlorproMAZINE HCl 100 MG TABLET PO ×3 (13:43→22:26)
--- NOTE | 2024-08-09 14:02 | PC.ADMIT ---
Pt admitted onto M3 at 1143, coming from [facility]. Here on a CV. Pt admitted due to SI, I sometimes think about suicide by copra processor , but states he has no intention of attacking an officer. Pt states that he has been homeless since getting released from [facility] on 07/12/24. He states that other stressors include his depression and anxiety. I can't focus on anything else, the anxiety is so bad . Pt never picked up medications from recent prior discharge from this facility. Pt toxicology report positive for cocaine, opiates, and fentanyl. Pt declined flu vaccine d/t already receiving the dose. 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 Skin check revealed same concern on lower left leg as recent previous admission: hematoma. Pt limping some, however, he states it continues to feel better.
[2024-08-09 20:00] VITALS: BP 101/59; PULSE 78; RESP 16; TEMP 37.2; O2SAT 95
[2024-08-10 07:25] VITALS: BP 101/55; PULSE 70; RESP 14; TEMP 36.8; O2SAT 96
--- NOTE | 2024-08-10 07:40 | P.PNPSI_ITS ---
Subjective Subjective Date of Service: 08/10/24 Reason For Visit: SI Subjective Notes: Conditional Voluntary Interim History: Overall no management issues. Aware of plan for Section 35 being filed. Patient reports he is in agreement with Section 35. Reports mood is low. Constant panic attacks. Suicidal but also feels supported no current plans or intent. Reports for panic Thorazine is helpful, but 100 mg does not appear enough. We discussed alternatives including gabapentin which typewriter tester will add on an as-needed basis Medication Compliance: Yes Side effects from medications: No Attending Groups: No Review of Systems Acute medical concerns: No Review of Systems Review of Systems unremarkable Mental Status Exam Mental Status Exam Narrative: Pt is alert and oriented; behavior is cooperative; in room and appropriately dressed, mood is described as depressed eye contact appropriate; Speech is normal rate, volume and not pressured; thought process is organized; Thought content is on tx; +SI, no HI/AVH. Diagnostics Vital Signs (24Hr): Vital Signs - 24 hr 08/09/24 09:45 08/09/24 11:49 08/09/24 20:00 Temperature 98.5 F 98.6 F 99 F Pulse Rate 62 63 78 Respiratory Rate 18 15 16 Blood Pressure 103/63 132/76 101/59 L Pulse Oximetry 95 97 95 Oxygen Delivery Method Room Air Room Air Room Air BMI result Body Mass Index 23.8 Labs 08/07/24 22:21 08/07/24 22:21 Medications Medications Current Medications Acetaminophen (Acetaminophen 325 Mg Tablet) 650 mg PO Q6H PRN PRN Reason: Headache/Pain Mild Scale (1-3) Al Hydroxide/Mg Hydroxide (Magnesium Hydrox/Alum Hydrox 30 Ml Oral.Susp) 30 ml PO Q6H PRN PRN Reason: Heartburn/Nausea Chlorpromazine HCl (Chlorpromazine Hcl 100 Mg Tablet) 100 mg PO Q4H PRN PRN Reason: anxiety Last Admin: 08/09/24 22:26 Dose: 100 mg Fluoxetine HCl (Fluoxetine Hcl 20 Mg Capsule) 20 mg PO DAILY GENARO Last Admin: 08/09/24 09:56 Dose: 20 mg Hydroxyzine HCl (Hydroxyzine Hcl 25 Mg Tablet) 25 mg PO Q6H PRN PRN Reason: Anxiety Last Admin: 08/09/24 13:43 Dose: 25 mg Magnesium Hydroxide (Milk Of Magnesia 30 Ml Oral.Susp) 30 ml PO DAILY PRN PRN Reason: Constipation Methadone HCl (Methadone Hcl 20 Mg/2 Ml Oral.Conc) 115 mg PO DAILY GENARO Last Admin: 08/09/24 09:48 Dose: 115 mg Nicotine Polacrilex (Nicotine Polacrilex 2 Mg Gum) 4 mg BUCCAL Q2H PRN PRN Reason: Nicotine Cravings Trazodone HCl (Trazodone Hcl 50 Mg Tablet) 50 mg PO BEDTIME MRX1 PRN PRN Reason: Insomnia Allergies Allergies Allergy/AdvReac Type Severity Reaction Status Date / Time mayonnaise [MAYONNAISE] Allergy Intermediate THROAT AND Verified 08/07/24 22:20 TONGUE ITCH quetiapine [From SEROQUEL] Allergy Intermediate DYSTONIA Verified 08/07/24 22:20 cat dander [CATS] Allergy Unknown WATERY Verified 08/07/24 22:20 EYES, SNEEZING dog dander [DOG] Allergy Unknown UNKNOWN Verified 08/07/24 22:20 paroxetine [From PAXIL] Allergy Unknown FLU LIKE Verified 08/07/24 22:20 SYMPTOMS penicillin V Allergy Unknown Unknown Verified 08/07/24 22:20 Penicillins [PENICILLINS] Allergy Unknown SWELLING Verified 08/07/24 22:20 SEAFOOD Allergy Severe DIFFICULTY Uncoded 08/07/24 22:20 BREATHING Assessment & Plan Assessment & Plan (1) Depression with suicidal ideation: Status: Acute Code(s): F32.A - Depression, unspecified; R45.851 - Suicidal ideations (2) Cocaine abuse: Status: Acute Code(s): F14.10 - Cocaine abuse, uncomplicated (3) Substance induced mood disorder: Status: Acute Code(s): F19.94 - Other psychoactive substance use, unspecified with psychoactive substance-induced mood disorder (4) Opioid use disorder, moderate, dependence: Status: Acute Code(s): F11.20 - Opioid dependence, uncomplicated Plan restart/continue discharge regimen. section 35. increase thorazine PRNs to 100 mg each. T/C increase in prozac to 40 mg daily. monitor for signs of infection as WBC 15.5 at admission. recheck CBC in several days. 08/10/2024: And gabapentin as needed for anxiety. Will recheck CBC tomorrow. Reason for continued inpatient stay Substantial Risk for: harm to self Time Spent With Patient Time: Total time managing care of this patient today ____ minutes.
[2024-08-10] MEDS: methADONE HCl 20 MG/2 ML ORAL.CONC 115 MG PO (08:15)
[2024-08-10] MEDS: FLUoxetine HCl 20 MG CAPSULE PO (08:15)
[2024-08-10] MEDS: chlorproMAZINE HCl 100 MG TABLET PO ×4 (08:18→21:09)
[2024-08-10] MEDS: hydrOXYzine HCL 25 MG TABLET PO (08:18)
[2024-08-10] MEDS: Gabapentin 100 MG CAPSULE PO (17:22)
[2024-08-10 20:00] VITALS: BP 99/54; PULSE 72; RESP 16; TEMP 36.3; O2SAT 93
[2024-08-11 08:00] VITALS: BP 112/65; PULSE 95; RESP 18; TEMP 36.7; O2SAT 95
[2024-08-11] MEDS: methADONE HCl 20 MG/2 ML ORAL.CONC 115 MG PO (08:10)
[2024-08-11] MEDS: Gabapentin 100 MG CAPSULE PO (08:13)
[2024-08-11] MEDS: chlorproMAZINE HCl 100 MG TABLET PO ×3 (08:13→16:48)
[2024-08-11] MEDS: FLUoxetine HCl 20 MG CAPSULE PO (08:13)
--- NOTE | 2024-08-11 10:16 | HO.PSYCHPN ---
Subjective Subjective Date of Service: 08/11/24 Reason For Visit: SI Subjective Notes: Conditional Voluntary Interim History: Overall no management issues. Out of room alot more today. No withdrawals. Discussed gabapentin dosing and will raise to 300mg prn (on higher doses in the past). Remains eager for Section 35 I need it . Otherwise mood still low with anxiety. Less frequent SI. No plans or intent. Medication Compliance: Yes Side effects from medications: No Attending Groups: Intermittent Review of Systems Acute medical concerns: No Review of Systems: Repeat CBC normal today Review of Systems Review of Systems unremarkable Mental Status Exam Mental Status Exam Narrative: Pt is alert and oriented; behavior is cooperative; in day area and appropriately dressed, mood is described as anxious eye contact appropriate; Speech is normal rate, volume and not pressured; thought process is organized; Thought content is on tx; Less frequent SI (no plans), no HI/AVH. Diagnostics Vital Signs (24Hr): Vital Signs - 24 hr 08/10/24 20:00 08/11/24 08:00 Temperature 97.4 F 98.1 F Pulse Rate 72 95 Respiratory Rate 16 18 Blood Pressure 99/54 L 112/65 Pulse Oximetry 93 95 Oxygen Delivery Method Room Air Room Air BMI result Body Mass Index 23.8 Labs 08/11/24 09:51 08/07/24 22:21 Medications Medications Current Medications Acetaminophen (Acetaminophen 325 Mg Tablet) 650 mg PO Q6H PRN PRN Reason: Headache/Pain Mild Scale (1-3) Al Hydroxide/Mg Hydroxide (Magnesium Hydrox/Alum Hydrox 30 Ml Oral.Susp) 30 ml PO Q6H PRN PRN Reason: Heartburn/Nausea Chlorpromazine HCl (Chlorpromazine Hcl 100 Mg Tablet) 100 mg PO Q4H PRN PRN Reason: anxiety Last Admin: 08/11/24 08:13 Dose: 100 mg Fluoxetine HCl (Fluoxetine Hcl 20 Mg Capsule) 20 mg PO DAILY GENARO Last Admin: 08/11/24 08:13 Dose: 20 mg Gabapentin (Gabapentin 100 Mg Capsule) 100 mg PO Q6H PRN PRN Reason: panic Last Admin: 08/11/24 08:13 Dose: 100 mg Hydroxyzine HCl (Hydroxyzine Hcl 25 Mg Tablet) 25 mg PO Q6H PRN PRN Reason: Anxiety Last Admin: 08/10/24 08:18 Dose: 25 mg Magnesium Hydroxide (Milk Of Magnesia 30 Ml Oral.Susp) 30 ml PO DAILY PRN PRN Reason: Constipation Methadone HCl (Methadone Hcl 20 Mg/2 Ml Oral.Conc) 115 mg PO DAILY GENARO Last Admin: 08/11/24 08:10 Dose: 115 mg Nicotine Polacrilex (Nicotine Polacrilex 2 Mg Gum) 4 mg BUCCAL Q2H PRN PRN Reason: Nicotine Cravings Trazodone HCl (Trazodone Hcl 50 Mg Tablet) 50 mg PO BEDTIME MRX1 PRN PRN Reason: Insomnia Allergies Allergies Allergy/AdvReac Type Severity Reaction Status Date / Time mayonnaise [MAYONNAISE] Allergy Intermediate THROAT AND Verified 08/07/24 22:20 TONGUE ITCH quetiapine [From SEROQUEL] Allergy Intermediate DYSTONIA Verified 08/07/24 22:20 cat dander [CATS] Allergy Unknown WATERY Verified 08/07/24 22:20 EYES, SNEEZING dog dander [DOG] Allergy Unknown UNKNOWN Verified 08/07/24 22:20 paroxetine [From PAXIL] Allergy Unknown FLU LIKE Verified 08/07/24 22:20 SYMPTOMS penicillin V Allergy Unknown Unknown Verified 08/07/24 22:20 Penicillins [PENICILLINS] Allergy Unknown SWELLING Verified 08/07/24 22:20 SEAFOOD Allergy Severe DIFFICULTY Uncoded 08/07/24 22:20 BREATHING Assessment & Plan Assessment & Plan (1) Depression with suicidal ideation: Status: Acute Code(s): F32.A - Depression, unspecified; R45.851 - Suicidal ideations (2) Cocaine abuse: Status: Acute Code(s): F14.10 - Cocaine abuse, uncomplicated (3) Substance induced mood disorder: Status: Acute Code(s): F19.94 - Other psychoactive substance use, unspecified with psychoactive substance-induced mood disorder (4) Opioid use disorder, moderate, dependence: Status: Acute Code(s): F11.20 - Opioid dependence, uncomplicated Plan restart/continue discharge regimen. section 35. increase thorazine PRNs to 100 mg each. T/C increase in prozac to 40 mg daily. monitor for signs of infection as WBC 15.5 at admission. recheck CBC in several days. 08/10/2024: And gabapentin as needed for anxiety. Will recheck CBC tomorrow. 12/8/24: increase gabapentin to 300mg prn. Repeat CBC normal today Reason for continued inpatient stay Substantial Risk for: harm to self and inability to function Time Spent With Patient Time: Total time managing care of this patient today ____ minutes.
[2024-08-11 10:23] LABS: Basophils Percent Auto 0.6 % (0-2); Eosinophils Absolute Auto 0.5 X10*3/uL (0.0-0.4); Eosinophils Percent Auto 6.5 % (0-4); Hematocrit 38.3 % (42.0-52.0); Hemoglobin 12.7 g/dl (14.0-18.0); Imm Gran Abs Auto 0.02 X10*3/uL (0.00-0.03); Imm Gran Pct Auto 0.3 % (0.0-0.4); Lymphocytes Absolute Auto 1.6 X10*3/uL (1.2-4.9); Lymphocytes Percent Auto 22.6 % (20-40); Mean Corpuscular HGB Conc 33.2 g/dl (31.0-36.0); Mean Corpuscular Volume 87.4 fL (80.0-98.0); Mean Platelet Volume 10.4 fL (9.4-12.4); Monocytes Absolute Auto 0.4 X10*3/uL (0.1-1.2); Monocytes Percent Auto 5.9 % (2-11); Neutrophils Absolute Auto 4.5 x10*3/uL (2.0-8.3); Neutrophils Percent Auto 64.1 % (45-73); Platelet Count 183 X10*3/uL (160-400); Red Blood Count 4.38 X10*6/uL (4.60-5.80); Red Cell Distribution Width 12.4 % (11.0-16.0); White Blood Count 7.1 X10*3/uL (4.8-10.8)
[2024-08-11] MEDS: Gabapentin 300 MG CAPSULE PO ×2 (12:07→19:02)
[2024-08-12 08:00] VITALS: BP 109/67; PULSE 81; RESP 14; TEMP 37; O2SAT 98
[2024-08-12] MEDS: methADONE HCl 20 MG/2 ML ORAL.CONC 115 MG PO (08:10)
[2024-08-12] MEDS: hydrOXYzine HCL 25 MG TABLET PO ×2 (08:12→22:41)
[2024-08-12] MEDS: chlorproMAZINE HCl 100 MG TABLET PO ×4 (08:12→22:41)
[2024-08-12] MEDS: Gabapentin 300 MG CAPSULE PO ×5 (08:12→22:42)
[2024-08-12] MEDS: FLUoxetine HCl 20 MG CAPSULE PO (08:12)
[2024-08-12] MEDS: Nicotine Polacrilex 2 MG GUM 4 MG BUCCAL (10:58)
[2024-08-12] MEDS: methADONE HCl 20 MG/2 ML ORAL.CONC 5 MG PO (11:38)
[2024-08-12 13:05] VITALS: BP 105/69; PULSE 91; RESP 14; TEMP 36.4; O2SAT 96
[2024-08-12 20:00] VITALS: BP 114/62; PULSE 72; RESP 16; TEMP 37.1; O2SAT 96
[2024-08-13 08:00] VITALS: BP 108/69; PULSE 82; RESP 16; TEMP 36.7; O2SAT 95
[2024-08-13] MEDS: methADONE HCl 20 MG/2 ML ORAL.CONC 120 MG PO (08:21)
[2024-08-13] MEDS: Gabapentin 300 MG CAPSULE PO ×2 (08:23→13:27)
[2024-08-13] MEDS: FLUoxetine HCl 20 MG CAPSULE PO (08:24)
[2024-08-13] MEDS: chlorproMAZINE HCl 100 MG TABLET PO (08:24)
[2024-08-13] MEDS: Nicotine Polacrilex 2 MG GUM 4 MG BUCCAL (08:24)
[2024-08-13] MEDS: chlorproMAZINE HCl 25 MG TABLET 125 MG PO (12:05)
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
== END 2024-08-13 14:35 | disposition other institution (70) | DRG 754 ==
LOC: HO.ED 08-09 06:59 → HO.PADLT16 08-09 10:49
PROVIDERS: Internal Medicine; Psychiatry & Neurology Psychiatry; Admitting Provider Psychiatry & Neurology Psychiatry; Emergency Provider Emergency Medicine Emergency Medical Services; PCP Internal Medicine; Visit Provider Psychiatry & Neurology Psychiatry
DX: F32.A Depression, unspecified (principal); R45.851 Suicidal ideations; F11.20 Opioid dependence, uncomplicated; F19.24 Other psychoactive substance dependence with psychoactive substance-induced mood disorder; F14.10 Cocaine abuse, uncomplicated; Z91.52 Personal history of nonsuicidal self-harm; Z59.02 Unsheltered homelessness; Z79.899 Other long term (current) drug therapy
CPT/HCPCS: 36415; 80053; 80143; 80179; 80307; 81003; 85025; 93005; 99285

== ENCOUNTER → 2024-08-08 07:58 | Outpatient (BNV) | payer MEDICAID, SELFPAY | PROVIDERS: Emergency Provider Internal Medicine; PCP Internal Medicine; Visit Provider Internal Medicine Cardiovascular Disease | DX: I49.1 Atrial premature depolarization (principal); R94.31 Abnormal electrocardiogram [ECG] [EKG]; R45.851 Suicidal ideations | CPT/HCPCS: 93010 ==

== ENCOUNTER → 2024-08-09 10:48 | Outpatient (BNV) | payer OTHER, SELFPAY | PROVIDERS: Admitting Provider Psychiatry & Neurology Psychiatry; Emergency Provider Emergency Medicine Emergency Medical Services; PCP Internal Medicine; Visit Provider Psychiatry & Neurology Psychiatry | DX: F32.2 Major depressive disorder, single episode, severe without psychotic features (principal); R45.851 Suicidal ideations; F14.10 Cocaine abuse, uncomplicated; F19.94 Other psychoactive substance use, unspecified with psychoactive substance-induced mood disorder | CPT/HCPCS: 99231; 99232; 99233 ==

== ENCOUNTER 2024-11-04 21:16 | Emergency (ER) | payer MEDICAID, SELFPAY ==
--- NOTE | ~2024-11-04 | XR_ITS ---
CLINICAL HISTORY: pain in left chest Chest X-ray, 1 View COMPARISON: CR/SR - XR CHEST 1V - 05/08/23 22:07 EDT FINDINGS: Left lower lung consolidation. Blunting of the left costophrenic angle. No pneumothorax. No cardiomegaly. No acute fracture. IMPRESSION: Left lower lung consolidation. Left pleural effusion. This document has been electronically signed by: Issac Dorantes MD on 11/04/2024 22:32:20
[2024-11-04 21:30] VITALS: BP 122/74; PULSE 96; RESP 18; TEMP 36.9; O2SAT 96; BMI 27.2
[2024-11-04 21:56] LABS: MANUAL DIFF FLAG NO
[2024-11-04 21:58] LABS: Basophils Percent Auto 0.2 % (0-2); Eosinophils Percent Auto 0.2 % (0-4); Hematocrit 38.2 % (42.0-52.0); Hemoglobin 12.6 g/dl (14.0-18.0); Imm Gran Abs Auto 0.03 X10*3/uL (0.00-0.03); Imm Gran Pct Auto 0.3 % (0.0-0.4); Lymphocytes Percent Auto 9.1 % (20-40); Mean Corpuscular Hemoglobin 26.9 pg (27.0-33.0); Mean Corpuscular Volume 81.6 fL (80.0-98.0); Mean Platelet Volume 9.9 fL (9.4-12.4); Monocytes Absolute Auto 0.5 X10*3/uL (0.1-1.2); Monocytes Percent Auto 4.7 % (2-11); Neutrophils Percent Auto 85.5 % (45-73); Platelet Count 182 X10*3/uL (160-400); Red Blood Count 4.68 X10*6/uL (4.60-5.80); Red Cell Distribution Width 13.2 % (11.0-16.0); White Blood Count 10.5 X10*3/uL (4.8-10.8)
[2024-11-04 22:11] LABS: Amphetamine Screen Urine Not Detected (Not Detect); Barbiturates, Urine Not Detected (Not Detect); Benzodiazepines Screen Urine Not Detected (Not Detect); Buprenorphine Scr Not Detected (Not Detect); Cannabinoid Screen Urine Not Detected (Not Detect); Cocaine Screen Urine POSITIVE (Not Detect); Fentanyl, urine POSITIVE (Not Detect); Methadone Screen, Urine Positive (Not Detect); Opiate Screen Urine Not Detected (Not Detect); Oxycodone Screen Urine Not Detected (Not Detect); Phencyclidine Screen Urine Not Detected (Not Detect)
[2024-11-04 22:12] LABS: Alanine Aminotransferase 20 U/L (0-40); Albumin Level 4.4 g/dL (3.5-5.0); Alkaline Phosphatase 84 U/L (39-117); Anion Gap 13 (12-20); Aspartate Amino Transferase 32 U/L (5-37); Bilirubin Total 0.3 mg/dL (0.0-1.0); Blood Urea Nitrogen 23 mg/dL (9-16); Calcium 9.2 mg/dL (8.4-10.2); Carbon Dioxide 25 mmol/L (22-29); Chloride 105 mmol/L (96-108); Estimated Glomerular Filt Rate > 60; Glucose Random 102 mg/dL (60-115); Potassium 4.4 mmol/L (3.3-5.1); Sodium 139 mmol/L (135-145)
[2024-11-04 22:19] LABS: Troponin-I High Sensitivity 6.5 ng/L (<3.5-35.0)
[2024-11-04 22:35] LABS: Influenza A PCR NEGATIVE (Negative); Influenza B PCR NEGATIVE (Negative); Resp Syncy Virus RNA Qual PCR NEGATIVE (Negative); SARS COV2 PCR INHOUSE NEGATIVE (Negative)
[2024-11-05 00:21] VITALS: BP 109/76; PULSE 84; RESP 18; TEMP 36.6; O2SAT 98
[2024-11-05 05:42] VITALS: BP 118/80; PULSE 81; RESP 19; TEMP 36.4; O2SAT 96
== END 2024-11-05 13:33 | disposition left against medical advice (07) ==
PROVIDERS: Emergency Medicine; Emergency Provider Emergency Medicine; PCP Internal Medicine
DX: R07.9 Chest pain, unspecified (principal)
CPT/HCPCS: 0241U; 36415; 71045; 80053; 80307; 84484; 85025; 99281; 99282

== ENCOUNTER → 2024-11-04 21:39 | Outpatient (BNV) | payer MEDICAID, SELFPAY | PROVIDERS: PCP Internal Medicine; Visit Provider Radiology Diagnostic Radiology | DX: J90 Pleural effusion, not elsewhere classified (principal) | CPT/HCPCS: 71045 ==

== ENCOUNTER 2024-11-05 23:02 | Inpatient (IN) | payer MEDICAID, OTHER, SELFPAY ==
--- NOTE | ~2024-11-05 | XR_ITS ---
EXAMINATION: XR CHEST CLINICAL INFORMATION: pneumonia, non-resolving CP associated. COMPARISON: 01/04/2025. TECHNIQUE: Frontal view of the chest was obtained. FINDINGS: The cardiac, hilar, and mediastinal contours are normal. Slightly smaller layering left effusion with similar left base consolidation. Right lung is clear. No pneumothorax. No focal osseous or soft tissue abnormality. XR/XR chest 1V IMPRESSION: 1. Slightly smaller layering left effusion with similar left base consolidation. 2. Right lung remains clear. Electronically signed by: Jackson Clancy MD 11/11/2024 11:42 AM EDT
[2024-11-05 23:25] VITALS: BP 106/74; PULSE 79; RESP 16; TEMP 36.3; O2SAT 96; BMI 28.7
--- NOTE | 2024-11-06 00:04 | MHC.EDTECH ---
patient changed over into [facility] gown and button ryan pants. patient belongings locked up in [facility] locker, shelf 1
--- NOTE | 2024-11-06 00:31 | ED_ITS ---
HPI - Psych General Chief Complaint: Psychiatric Symptoms Stated Complaint: psych symptoms; suicidal thoughts Time Seen by Provider: 11/06/24 00:19 Source: patient Mode of arrival: ambulatory Limitations: no limitations History of Present Illness ED Provider: Dr. Lucinda Martinez HPI Narrative: Patient comes to the emergency room complaining of depression, anxiety, suicidal ideation. Patient states that he has a plan of overdosing to commit suicide. Also, patient complaining of left lower middle back pain. Patient came to the emergency room, got lab work done x-rays and left with a being seen. Patient complaining of intermittent cough, denies hemoptysis, denies fever or chills. Related Data Previous Rx's ?Medication ?Instructions ?Recorded fluoxetine 20 mg capsule 20 mg PO DAILY 30 days #30 caps 08/05/24 nicotine (polacrilex) 2 mg gum 4 mg buccal Q2H PRN Nicotine 08/05/24 Cravings 30 days #100 ea chlorpromazine 25 mg tablet 125 mg (5 x 25 mg) PO Q4H PRN 08/13/24 anxiety #0 tabs gabapentin 300 mg capsule 300 mg PO BID PRN severe anxiety 08/13/24 #0 caps gabapentin 300 mg capsule 300 mg PO TID #0 caps 08/13/24 methadone 10 mg/mL oral 120 mg (12 mL) PO DAILY #0 mL 08/13/24 concentrate (Methadose) Allergies Allergy/AdvReac Type Severity Reaction Status Date / Time mayonnaise [MAYONNAISE] Allergy Intermediate THROAT AND Verified 11/05/24 23:25 TONGUE ITCH quetiapine [From SEROQUEL] Allergy Intermediate DYSTONIA Verified 11/05/24 23:25 cat dander [CATS] Allergy Unknown WATERY Verified 11/05/24 23:25 EYES, SNEEZING dog dander [DOG] Allergy Unknown UNKNOWN Verified 11/05/24 23:25 paroxetine [From PAXIL] Allergy Unknown FLU LIKE Verified 11/05/24 23:25 SYMPTOMS penicillin V Allergy Unknown Unknown Verified 11/05/24 23:25 Penicillins [PENICILLINS] Allergy Unknown SWELLING Verified 11/05/24 23:25 SEAFOOD Allergy Severe DIFFICULTY Uncoded 11/05/24 23:25 BREATHING Review of Systems Review of Systems: Constitutional : No Weight loss, No Fever, No Chills, No Night Sweats, No Fatigue, No Malaise ENT/Mouth : No Hearing loss, No Ear Pain, No Nasal Congestion, No Sinus Pain, No Hoarseness, No sore throat, No Rhinorrhea, No Swallowing Difficulty Eyes: No Eye Pain, No Swelling, No Redness, No Foreign Body, No Discharge, No Vision Changes Cardiovascular : No Chest Pain, No SOB, No Dyspnea on Exertion, No Orthopnea, No Edema, No Palpitations Respiratory : Complaining of dry Cough, No Sputum, No Wheezing, No Smoke Exposure, No Dyspnea Gastrointestinal : No Nausea, No Vomiting, No Diarrhea, No Constipation, No abdominal Pain, No Hematochezia, No Melena Genitourinary : no irregular bleeding, No Dysuria, No Urinary Frequency, No Hematuria, No Urinary Incontinence, No Urgency, No Flank Pain, No Urinary Flow Changes, No Hesitancy Musculoskeletal : No joint pain, No Myalgias, No Joint Swelling Skin : No Skin Lesions, No rash Neuro : No Weakness, No Numbness, No Paresthesias, No Loss of Consciousness, No Dizziness, No Headache Psych : Complaining of anxiety, depression, SI with plan of overdosing, no HI Heme/Lymph: No Bruising, No Bleeding,No Lymphadenopathy Endocrine : No Polyuria, No Polydipsia, No Temperature Intolerance PMFSH Past Medical History Medical History Fentanyl use disorder, severe Benzodiazepine abuse MDD (major depressive disorder), recurrent episode Cellulitis Depression Polysubstance abuse Knee cartilage, torn, right ACL (anterior cruciate ligament) rupture Asthma Hepatitis C Hepatitis C antibody positive in blood Social History Social History Household Members: None Household Members Other:: brother Housing: Homeless Do you presently have visiting nurse or other home services: No Unable to assess alcohol history related to: Unknown Alcohol intake: former Comment: pt on 5 min safety checks Patient Tobacco Use Status: Current everyday Tobacco user Tobacco use type: Cigarette Cigarette Packs Per Day: 10 Cigarettes Per Day: 10 Years Smoked: 10 Smoked in Last 30 Days: Yes e-Cigarette/Vaping Use: Never Used Second Hand Smoke Exposure: No Use of substances other than those prescribed or required for medical reasons: Yes Substance Use Type: Opiates Substance Use Frequency: Occasionally Last Used Substance: Days (ago) Advance Directives: No Advance Directives Information Provided: Yes Do you have a plan to hurt others: No Plan service: No Sexual orientation: Straight/Heterosexual Physical Exam Vital Signs: Vital Signs: Last Vital Signs Temp 97.4 F 11/06/24 01:39 Pulse 85 11/06/24 01:39 Resp 16 11/06/24 01:39 BP 131/80 11/06/24 01:39 Pulse Ox 100 11/06/24 01:39 O2 Del Method Room Air 11/06/24 01:39 BMI result Body Mass Index 28.7 Const: Other: Appearance: Alert. Oriented X3. No acute distress. Well-appearing Eyes: Pupils equal, round and reactive to light. ENT: Pharynx normal. Neck: Normal inspection. Neck supple. No lymph nodes noted. No crepitus CVS: Normal heart rate and rhythm. Pulses normal. Normal S1 and S2 Respiratory: No respiratory distress. Breath sounds normal. No Wheezing. No rales Abdomen: Soft and nontender. No rigidity. No distention. Skin: Skin warm and dry. Normal skin color. Normal skin turgor. Extremities: No lower extremity edema. No Lacerations. No Rash Neuro: Oriented X 3. No motor deficit. No sensory deficit. Moving all extremities. No slurred speech. CN 2 through 12 grossly intact Psych: calm, cooperative, normal affect Course Course Course Narrative: Patient receiving IM Toradol for pain, Levaquin. Patient states that he is allergic to penicillins cause and body swelling. I reviewed patient's labs from yesterday when he was here. No significant abnormalities in patient's hematology and chemistry. Urine toxicology positive for methadone, fentanyl and cocaine, serology negative for influenza RSV and COVID Reevaluation(s) Reevaluation #1: No new complain waiting for crisis evaluation no event reported overnight Time: 07:51 Medications Administered Discontinued Medications Generic Name Dose Route Start Last Admin Trade Name Freq PRN Reason Stop Dose Admin Ketorolac Tromethamine 60 mg 11/06/24 00:28 11/06/24 00:44 Ketorolac Tromethamine 60 Mg/2 Ml Vial IM 11/06/24 00:29 60 mg ONCE ONE Administration Levofloxacin 500 mg 11/06/24 00:28 11/06/24 00:44 Levofloxacin 500 Mg Tablet PO 11/06/24 00:29 500 mg ONCE ONE Administration Lorazepam 2 mg 11/06/24 01:17 11/06/24 01:26 Lorazepam 1 Mg Tablet PO 11/06/24 01:18 2 mg ONCE ONE Administration Medical Decision Making Medical Decision Making [facility] Narrative: Labs from 2 days ago, no significant abnormality in patient's hematology and chemistry. Chest x-ray shows a left lower lobe pneumonia, given levofloxacin in the emergency room. Also, patient complaining of pain in the left lateral aspect of the chest. Patient was given a dose of levofloxacin Urine toxicology positive for opiates, methadone, fentanyl and cocaine Patient was given the 1st dose of levofloxacin in the emergency room Care team consult pending Patient is on a Section 12 Patient reported anxiety, given lorazepam 2 mg. Differential Diagnosis Differential Diagnoses: The differential diagnosis associated with the presentation includes Admission/Observation Consideration of admission/observation: Escalation of care including admission/observation considered Lab Data [facility] Lab Attestation statement: I reviewed the patient's lab results. Labs: Lab Results 11/06/24 Range/Units 00:51 Urine Opiates Screen POSITIVE H (Not Detect) Ur Buprenorphine Scrn Not Detected (Not Detect) ng/mL Ur Oxycodone Screen Not Detected (Not Detect) ng/mL Urine Methadone Screen Positive H (Not Detect) ng/mL Urine Fentanyl Screen POSITIVE H (Not Detect) Ur Barbiturates Screen Not Detected (Not Detect) Ur Phencyclidine Scrn Not Detected (Not Detect) Ur Amphetamines Screen Not Detected (Not Detect) U Benzodiazepines Scrn Not Detected (Not Detect) Urine Cocaine Screen POSITIVE H (Not Detect) U Marijuana (THC) Screen Not Detected (Not Detect) Ethyl Alcohol < 10 mg/dL Radiology Impression Discussion of test interpretation with radiology: I have reviewed the radiologist's reading. Radiologist Impression: Left lower lung consolidation. Blunting of the left costophrenic angle. No pneumothorax. No cardiomegaly. No acute fracture. IMPRESSION: Left lower lung consolidation. Left pleural effusion. Critical Care Time Critical Care Time Critical Care Time: Yes Total Critical Care Time: 35 Attestation: I have personally provided critical care time. Time includes review of lab data, radiology results, discussion with consultants, and monitoring for potential decompensation. Intervention performed as documented. Discharge Plan Discharge Clinical Impression: Suicidal ideation, Pneumonia Patient Disposition: Still a Patient Prescriptions: No Action nicotine (polacrilex) 2 mg Gum 4 mg buccal Q2H PRN (Reason: Nicotine Cravings) 30 Days Qty: 100 0RF fluoxetine 20 mg Capsule 20 mg PO DAILY 30 Days Qty: 30 0RF chlorpromazine 25 mg Tablet 125 mg PO Q4H PRN (Reason: anxiety) Qty: 0 0RF gabapentin 300 mg Capsule 300 mg PO TID Qty: 0 0RF gabapentin 300 mg Capsule 300 mg PO BID PRN (Reason: severe anxiety) Qty: 0 0RF methadone [Methadose] 10 mg/mL Concentrate 120 mg PO DAILY Qty: 0 0RF Rx Instructions: Partial Fill upon patient request. Interventions: Perry-Suicide Risk Severity Scale Last Done: 11/05/24 23:50 Print Language: Faroese
[2024-11-06] MEDS: levoFLOXacin 500 MG TABLET PO ×2 (00:44→22:24)
[2024-11-06] MEDS: Ketorolac Tromethamine 60 MG/2 ML VIAL IM (00:44)
[2024-11-06 01:08] LABS: Ethanol < 10 mg/dL
[2024-11-06 01:12] LABS: Amphetamine Screen Urine Not Detected (Not Detect); Barbiturates, Urine Not Detected (Not Detect); Benzodiazepines Screen Urine Not Detected (Not Detect); Buprenorphine Scr Not Detected (Not Detect); Cannabinoid Screen Urine Not Detected (Not Detect); Cocaine Screen Urine POSITIVE (Not Detect); Fentanyl, urine POSITIVE (Not Detect); Methadone Screen, Urine Positive (Not Detect); Opiate Screen Urine POSITIVE (Not Detect); Oxycodone Screen Urine Not Detected (Not Detect); Phencyclidine Screen Urine Not Detected (Not Detect)
[2024-11-06] MEDS: LORazepam 1 MG TABLET 2 MG PO (01:26)
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
[2024-11-06 01:39] VITALS: BP 131/80; PULSE 85; RESP 16; TEMP 36.3; O2SAT 100
--- NOTE | 2024-11-06 02:19 | PC.NURSE ---
report given to POD. pt ambulating independently with security, section 12 by MD Martinez
--- OUTSIDE RECORDS SUMMARY | 2024-11-06 02:21 | XMS_ITS | Encounter Summary ---
Author Organization [email or web address] Address [address] [place] [address] [place] [address] Care Team Providers Care Copier And Printer Field Technician Name Role Phone Molly Ford MD Primary Care Provide r Reason for Visit * Reason Onset Date Comments Referral 10/06/2022 Encounter Details Date Type Department Care Team ([facility] st Contact Info) Description 10/06/2022 Telephone [facility] [address] [place] [address] Molly Ford MD [address] [place] [address] Referral Social History Tobacco Use Types Packs/Day Years Used Date Smoking Tobacco: Never Assessed Sex and Gender Information Value Date Recorded Sex Assigned at Male 07/04/2022 10:19 AM EDT Legal Sex Male 10:19 AM EDT Gender Identity Male 07/04/2022 10:19 AM EDT Sexual Orientation Straight 07/04/2022 10 :19 AM EDT COVID-19 Exposure Response Date Recorded In the last 10 days, have yo u been in contact with someone who was confirmed or suspected to have Coronavirus/COVID-19? No / Unsure 09/22/2022 10:00 AM EST documented as of this encounter Miscellaneous Notes * Telephone Encounter - Lucy Kaur - 10/06/2022 3:27 PM EST Tc from [facility] regarding to a referral that was send for Physical therapy for lower back, the referralwas made on 10/15/2020, Facility would like to renewed the referral in order to assist patient, facility claim they never received first referral. Please contact [facility] at [phone] for any questions. documented in this encounter Plan of Treatment Upcoming Encounters Date Type Department Care Team (Late st Contact Info) Description 11/14/2024 2:45 PM EDT Office Visit [facility] [address], [place] [phone] Molly Ford MD [address] [place] [address] documented as of this encounter Visit Diagnoses Not on filedocumented in this encounter Care Teams Copier And Printer Field Technician Relationship Specialty Start Date End Date Molly Ford MD [address], [place] [phone] PCP - General Family Medicine 01/07/20 documented as of this encounter
--- OUTSIDE RECORDS SUMMARY | 2024-11-06 02:21 | XMS_ITS | Encounter Summary ---
Author Organization [employer] Address [address] [place] [address] 7 [place] [address] Care Team Providers Care Block Out Machine Operator Name Role Phone Molly Ford MD Primary Care Provide r Encounter Details Date Type Department Care Team (Late st Contact Info) Description 10/07/2022 Orders Only [facility] [address] [place] [phone] Kathrin Tompkins MD [address] [place] [address] [phone] Low back pain at multiple sites (Primary Dx) Social History Tobacco Use Types Packs/Day Years [...] AM EST documented as of this encounter Plan of Treatment Upcoming Encounters Date Type Department Care Team (Late st Contact Info) Description 11/14/2024 2:45 PM EDT Office Visit [facility] [address] [place] [phone] Molly Ford MD [address] [place] [address] [phone] documented as of this encounter Procedures Procedure Name Priority Date/Time Associated Diagnosis Comments INFLUENZA A B2 ID NOW (TOLLIVER) Routine 10/17/2022 11:28 AM EST Low back pain at multiple sites COVID-19 ID NOW (TOLLIVER) Routine 10/17/2022 11:28 AM EST Low back pain at multiple sites ETHANOL Routine 10/17/2022 11:28 AM EST Low back pain at multiple sites URINALYSIS, COMPLETE, WITH REFLEX TO CULTURE Routine 10/17/2022 11:28 AM EST Low back pain at multiple sites DRUG MONITOR, PANEL 1, SCREEN, URINE Routine 10/17/2022 11:28 AM EST Low back pain at multiple sites CBC WITH AUTO DIFFERENTIAL Routine 10/17/2022 11:28 AM EST Low back pain at multiple sites MAGNESIUM Routine 10/17/2022 11:28 AM EST Low back pain at multiple sites HEPATIC FUNCTION PANEL Routine 11:28 AM EST Low back pain at multiple sites BASIC METABOLIC PANEL Routine 10/17/2022 11:28 AM EST Low back pain at multiple sites ETHANOL Routine 10/08/2022 7:27 PM EST Low back pain at multiple sites CBC WITH AUTO DIFFERENTIAL Routine 10/08/2022 7:27 PM EST Low back pain at multiple sites COMPREHENSIVE METABOLIC PANEL Routine 10/08/2022 7:27 PM EST Low back pain at multiple sites INFLUENZA A B2 ID NOW (TOLLIVER) Routine 10/08/2022 6:11 PM EST Low back pain at multiple sites COVID-19 ID NOW (TOLLIVER) Routine 10/08/2022 6:11 PM EST Low back pain at multiple sites URINALYSIS, COMPLETE, WITH REFLEX TO CULTURE Routine 10/08/2022 6:00 PM EST Low back pain at multiple sites DRUG MONITOR, PANEL 1, SCREEN, URINE Routine 10/08/2022 6:00 PM EST Low back pain at multiple sites documented in this encounter Results * Ethanol (10/17/2022 11:28 AM EST) Pathologist [facility] ETHANOL (MG/DL) IN SER/PLAS <10 mg/dL [facility] 10/17/2022 11:2 8 AM EST 10/17/2022 11:31 AM EST [facility] External Provider LAB BLO OD ORDERABLES Final Result Performing Organization Address [facility]/ZIP Co de Phone Number [facility] [address] [place] [phone] * Magnesium (10/17/2022 11:28 AM EST) [facility] Magnesium 2.0 1.6 - 2.6 mg/dL [facility] 10/17/2022 11:2 8 AM EST 10/17/2022 11:31 AM EST [facility] External Provider LAB BLO OD ORDERABLES Final Result Performing Organization Address [facility]/[place] Co de Phone Number [facility] [address] [place] [address] [phone] * (ABNORMAL) Basic Metabolic Panel (10/17/2022 11:28 AM EST) [facility] Sodium 141 135 - 145 mmol/L [facility] Potassium 4.4 3.3 - 5.1 mmol/L [facility] Chloride 103 96 - 108 mmol/L [facility] Carbon Dioxide 27 22 - 29 mmol/L [facility] Anion Gap 15 12 - 20 [facility] Urea Nitrogen (BUN) 14 9 - 16 mg/dL [facility] Creatinine, Serum 1.05 0.5 - 1.4 mg/dL [facility] Creatinine Clr Calc Pharmacy 102.5 [facility] Comment:eGFR (calculated fro m the MDRD study equation) and eCrCl(calculated from the Cockcroft-Gault equation) are based ondifferent parameters and may not yield comparable results.If eCrCl result is absurd, please check patient'sheight/weight. Estimated Glomerular Filt Rate >60 [facility] Comment:NOTE: For -Am erican individuals, multiply the result by 1.210.Chronic Kidney Disease: Estimated GFR < 60 mL/min/1.85a5Isxbci Kidney Disease: Estimated GFR < 15 mL/min/1.73m2 Glucose 145(H) 60 - 115 mg/dL [facility] Calcium 9.7 8.4 - 10.2 mg/dL [facility] 10/17/2022 11:2 8 AM EST 10/17/2022 11:31 AM EST us [facility] External Provider LAB BLO OD ORDERABLES Final Result [facility] [address] [place] [address] [phone] * Hepatic Function Panel (10/17/2022 11:28 AM EST) Bilirubin, Total 0.7 0.0 - 1.0 mg/dL [facility] Bilirubin, Direct 0.2 0.0 - 0.5 mg/dL [facility] Aspartate Amino Transferase 24 5 - 37 U/L [facility] Alanine Aminotransferase 24 0 - 40 U/L [facility] Total Protein 7.1 6.5 - 8.0 g/dL [facility] Albumin Level 4.8 3.5 - 5.0 g/dL [facility] Alkaline Phosphatase 80 39 - 117 U/L [facility] 10/17/2022 11:2 8 AM EST 10/17/2022 11:31 AM EST [facility] External Provider LAB BLO OD ORDERABLES Final Result [facility] [address] [place] [address] [phone] * (ABNORMAL) Drug Monitoring, Panel 1, Screen, Urine (10/17/2022 11:28 AM EST) Opiate Screen Urine POSITIVE(A) Not Detect [facility] Comment:Opiate cut-off is 30 0 ng/mL.Positive results are unconfirmed and should not be used fornon-medical purposes. Barbiturates, Urine Not Detected Not Detect [facility] Comment:Barbiturate cut-off is 200 ng/mL.Positive results are unconfirmed and should not be used fornon-medical purposes. Phencyclidine Screen Urine Not Detected Not Detect [facility] Comment:Phencyclidine cut-of f is 25 ng/mL.Positive results are unconfirmed and should not be used fornon-medical purposes. Amphetamine Screen Urine Not Detected Not Detect [facility] Comment:Amphetamine cut-off is 1000 ng/mL.Positive results are unconfirmed and should not be used fornon-medical purposes. Benzodiazepines Screen Urine POSITIVE(A) Not Detect [facility] Comment:Benzodiazepine cut-o ff is 200 ng/mL.Positive results are unconfirmed and should not be used fornon-medical purposes. Cocaine Screen Urine Not Detected Not Detect [facility] Comment:Cocaine cut-off is 3 00 ng/mL.Positive results are unconfirmed and should not be used fornon-medical purposes. Cannabinoid Screen Urine POSITIVE(A) Not Detect [facility] Comment:Cannabinoid cut-off is 50 ng/mL.Positive results are unconfirmed and should not be used fornon-medical purposes. FENTANYL URINE POSITIVE(A) Not Detect [facility] Comment:Fentanyl cut-off is 1 ng/mL.Positive results are unconfirmed and should not be used fornon-medical purposes. 10/17/2022 11:2 8 AM EST 10/17/2022 11:31 AM EST [facility] External Provider LAB URI NE ORDERABLES Final Result Performing Organization Address [facility]/[place] Co de Phone Number [facility] [address] [place] [address] [phone] * Influenza A B2 ID NOW (T[place]liver) (10/17/2022 11:28 AM EST) IDNOW SERIAL# [id number] [facility] Influenza A Negative Negative [facility] Influenza B2 Negative Negative [facility] Influenza A B2 Note See Note [facility] Comment:The [place] ID NOW In fluenza A B2 test is used for thequalitative detection of influenza A and B from patientswith signs and symptoms of respiratory infection.Negative results do not preclude influenza virus infectionand should not be used as the sole basis for diagnosis,treatment or other patient management decisions.There is a risk of false negative results due to thepresence of variants in the viral targets of the assay, lowlevels of virus in the specimen and co- infection withRespiratory Syncytial Virus. 10/17/2022 11:2 8 AM EST 10/17/2022 11:31 AM EST [facility] Exter nal Provider LAB MICROBIOLOGY - GENERAL ORDERABLES Final Result Performing Organization Address [facility] de Phone Number [facility] [address] [place] [address] [phone] * COVID-19 ID NOW (TOLLIVER) (10/17/2022 11:28 AM EST) IDNOW SERIAL# [id number] [facility] COVID-19 TEST Negative Negative [facility] COVID-19 NOTE See Note [facility] Comment: Results are for the identification of SARS-CoV2 RNA. TheSARS-CoV2 RNA is generally detectable in respiratory samplesduring the acute phase of infection. Positive results areindicative of the presence of SARS-CoV-2 RNA; clinicalcorrelation with patient history and other diagnosticinformation is necessary to determine patient infectionstatus. Positive results do not rule out bacterial infectionor co- infection with other viruses.Testing facilities within the [facility] and itsterritories are required to report all positive results tothe appropriate public health authorities.Negative results should be treated as presumptive and, ifinconsistent with clinical signs and symptoms or necessaryfor patient management, should be tested with differentauthorized or cleared molecular tests. Negative results donot preclude SARS-CoV2 RNA infection and should not be usedas the sole basis for patient management decisions. Negativeresults should be considered in the context of a patient'srecent exposures, history and the presence of clinical signsand symptoms consistent with COVID-19.This test has been authorized by the FDA under an EmergencyUse Authorization (EUA) for use by authorized laboratories.Testing performed on the [employer] NOW utilizing NAAT. 10/17/2022 11:2 8 AM EST 10/17/2022 11:31 AM EST us [facility] Exter nal Provider LAB MOLECULAR DIAGNOSTICS ORDERABLES Final Result [facility] [address] [place] [address] [phone] * (ABNORMAL) Urinalysis, Complete, with Reflex to Culture (10/17/2022 11:28 AM EST) Color Urine Dark Yellow [facility] Appearance Urine Clear [facility] PH 7.0 5.0 - 9.0 [facility] Glucose Urine UA Negative Negative mg/dL [facility] Urine Blood Negative Negative [facility] Specific [place] - Urine >=1.030(H) 1.005 - 1.025 [facility] Urine Protein Trace Neg-Trace mg/dL [facility] Urine Ketones 15 Negative mg/dL [facility] Nitrite Urine Negative Negative [facility] Leukocyte Esterase Urine Trace(A) Negative [facility] RBC Urine 0-2 0 - 2 /HPF [facility] Urine WBC 0-5 0 - 5 /HPF [facility] Urine Squamous Epithelial Cell 0-2 0 - 2 /HPF [facility] Urine Bacteria None Seen None Seen [facility] Hyaline Casts, Urine 0-2 0 - 2 /LPF [facility] 10/17/2022 11:2 8 AM EST 10/17/2022 11:31 AM EST Narrative [facility] - 10/17/2022 11:45 AM EST [id number], Clean Catch us [facility] External Provider LAB URI NE ORDERABLES Final Result [facility] [address] [place] [address] [phone] * (ABNORMAL) CBC auto differential (10/17/2022 11:28 AM EST) White Blood Count 5.9 4.8 - 10.8 X10*3/uL [facility] Red Blood Count 5.07 4.60 - 5.80 X10*6/uL [facility] Hemoglobin 14.6 14.0 - 18.0 g/dl [facility] Hematocrit 44.9 42.0 - 52.0 % [facility] Mean Corpuscular Volume 88.6 80.0 - 98.0 fL [facility] Mean Corpuscular Hemoglobin 28.8 27.0 - 33.0 pg [facility] Mean Corpuscular HGB Conc 32.5 31.0 - 36.0 g/dl [facility] Red Cell Distribution Width 11.7 11.0 - 16.0 % [facility] Platelet Count 175 160 - 400 X10*3/uL [facility] Mean Platelet Volume 10.4 9.4 - 12.4 fL [facility] Neutrophils Percent Auto 84.2(H) 45 - 73 % [facility] Imm Gran Pct Auto 0.3 0.0 - 0.4 % [facility] Lymphocytes Percent Auto 7.4(L) 20 - 40 % [facility] Monocytes Percent Auto 4.9 2 - 11 % [facility] Eosinophils Percent Auto 2.9 0 - 4 % [facility] Basophils Percent Auto 0.3 0 - 2 % [facility] NRBC Pct Auto 0.0 0.0 - 0.2 /100WBC [facility] Neutrophils Absolute Auto 5.0 2.0 - 8.3 x10*3/uL [facility] Imm Gran Abs Auto 0.02 0.00 - 0.03 X10*3/uL [facility] Lymphocytes Absolute Auto 0.4(L) 1.2 - 4.9 X10*3/uL [facility] Monocytes Absolute Auto 0.3 0.1 - 1.2 X10*3/uL [facility] Eosinophils Absolute Auto 0.2 0.0 - 0.4 X10*3/uL [facility] Basophils Absolute Auto 0.0 0.0 - 0.2 X10*3/uL [facility] NRBC Abs Auto 0.000 0.0 - 0.012 X10*3/uL [facility] 10/17/2022 11:2 8 AM EST 10/17/2022 11:31 AM EST [facility] External Provider LAB BLO OD ORDERABLES Final Result Performing Organization Address City/[facility]/ZIP Co de Phone Number [facility] [address] [place] [address] [phone] * Ethanol (10/08/2022 7:27 PM EST) ETHANOL (MG/DL) IN SER/PLAS <10 mg/dL [facility] 10/08/2022 7:27 PM EST 10/08/2022 7:31 PM EST [facility] External Provider LAB BLO OD ORDERABLES Final Result Performing Organization Address City/[facility]/ZIP Co de Phone Number [facility] [address] [place] [phone] * (ABNORMAL) Comprehensive Metabolic Panel (10/08/2022 7:27 PM EST) Sodium 142 135 - 145 mmol/L [facility] Potassium 4.9 3.3 - 5.1 mmol/L [facility] Chloride 107 96 - 108 mmol/L [facility] Carbon Dioxide 26 22 - 29 mmol/L [facility] Anion Gap 14 12 - 20 [facility] Urea Nitrogen (BUN) 14 9 - 16 mg/dL [facility] Creatinine, Serum 1.02 0.5 - 1.4 mg/dL [facility] Creatinine Clr Calc Pharmacy 102.3 [facility] Comment:eGFR (calculated fro m the MDRD study equation) and eCrCl(calculated from the Cockcroft-Gault equation) are based ondifferent parameters and may not yield comparable results.If eCrCl result is absurd, please check patient'sheight/weight. Estimated Glomerular Filt Rate >60 [facility] Comment:NOTE: For -Am erican individuals, multiply the result by 1.210.Chronic Kidney Disease: Estimated GFR < 60 mL/min/1.33v3Hwtniq Kidney Disease: Estimated GFR < 15 mL/min/1.73m2 Glucose 100 60 - 115 mg/dL [facility] Calcium 9.4 8.4 - 10.2 mg/dL [facility] Bilirubin, Total 0.5 0.0 - 1.0 mg/dL [facility] Aspartate Amino Transferase 18 5 - 37 U/L [facility] Alanine Aminotransferase 12 0 - 40 U/L [facility] Total Protein 6.1(L) 6.5 - 8.0 g/dL [facility] Albumin Level 4.2 3.5 - 5.0 g/dL [facility] Alkaline Phosphatase 60 39 - 117 U/L [facility] 10/08/2022 7:27 PM EST 10/08/2022 7:31 PM EST us [facility] External Provider LAB BLO OD ORDERABLES Final Result [facility] [address] [place], [place] [phone] * (ABNORMAL) CBC auto differential (10/08/2022 7:27 PM EST) White Blood Count 7.3 4.8 - 10.8 X10*3/uL [facility] Red Blood Count 4.83 4.60 - 5.80 X10*6/uL [facility] Hemoglobin 13.9(L) 14.0 - 18.0 g/dl [facility] Hematocrit 41.7(L) 42.0 - 52.0 % [facility] Mean Corpuscular Volume 86.3 80.0 - 98.0 fL [facility] Mean Corpuscular Hemoglobin 28.8 27.0 - 33.0 pg [facility] Mean Corpuscular HGB Conc 33.3 31.0 - 36.0 g/dl [facility] Red Cell Distribution Width 11.7 11.0 - 16.0 % [facility] Platelet Count 153(L) 160 - 400 X10*3/uL [facility] Mean Platelet Volume 10.8 9.4 - 12.4 fL [facility] Neutrophils Percent Auto 72.4 45 - 73 % [facility] Imm Gran Pct Auto 0.3 0.0 - 0.4 % [facility] Lymphocytes Percent Auto 19.7(L) 20 - 40 % [facility] Monocytes Percent Auto 5.1 2 - 11 % [facility] Eosinophils Percent Auto 2.1 0 - 4 % [facility] Basophils Percent Auto 0.4 0 - 2 % [facility] NRBC Pct Auto 0.0 0.0 - 0.2 /100WBC [facility] Neutrophils Absolute Auto 5.3 2.0 - 8.3 x10*3/uL [facility] Imm Gran Abs Auto 0.02 0.00 - 0.03 X10*3/uL [facility] Lymphocytes Absolute Auto 1.4 1.2 - 4.9 X10*3/uL [facility] Monocytes Absolute Auto 0.4 0.1 - 1.2 X10*3/uL [facility] Eosinophils Absolute Auto 0.2 0.0 - 0.4 X10*3/uL [facility] Basophils Absolute Auto 0.0 0.0 - 0.2 X10*3/uL [facility] NRBC Abs Auto 0.000 0.0 - 0.012 X10*3/uL [facility] 10/08/2022 7:27 PM EST 10/08/2022 7:31 PM EST [facility] External Provider LAB BLO OD ORDERABLES Final Result Performing Organization Address [facility]/ZIP Co de Phone Number [facility] [address] [place] [address] [phone] * Influenza A B2 ID NOW ([employer]) (10/08/2022 6:11 PM EST) IDNOW SERIAL# [id number] [facility] Influenza A Negative Negative [facility] Influenza B2 Negative Negative [facility] Influenza A B2 Note See Note [facility] Comment:The [place] ID NOW In fluenza A B2 test is used for thequalitative detection of influenza A and B from patientswith signs and symptoms of respiratory infection.Negative results do not preclude influenza virus infectionand should not be used as the sole basis for diagnosis,treatment or other patient management decisions.There is a risk of false negative results due to thepresence of variants in the viral targets of the assay, lowlevels of virus in the specimen and co- infection withRespiratory Syncytial Virus. 10/08/2022 6:11 PM EST 10/08/2022 6:13 PM EST [facility] Exter nal Provider LAB MICROBIOLOGY - GENERAL ORDERABLES Final Result Performing Organization Address [facility]/ZIP Co de Phone Number [facility] [address] [place] [address] [phone] * COVID-19 ID NOW (TOLLIVER) (10/08/2022 6:11 PM EST) IDNOW SERIAL# [id number] [facility] COVID-19 TEST Negative Negative [facility] COVID-19 NOTE See Note [facility] Comment: Results are for the identification of SARS-CoV2 RNA. TheSARS-CoV2 RNA is generally detectable in respiratory samplesduring the acute phase of infection. Positive results areindicative of the presence of SARS-CoV-2 RNA; clinicalcorrelation with patient history and other diagnosticinformation is necessary to determine patient infectionstatus. Positive results do not rule out bacterial infectionor co- infection with other viruses.Testing facilities within the [facility] and [facility] are required to report all positive results tothe appropriate public health authorities.Negative results should be treated as presumptive and, ifinconsistent with clinical signs and symptoms or necessaryfor patient management, should be tested with differentauthorized or cleared molecular tests. Negative results donot preclude SARS-CoV2 RNA infection and should not be usedas the sole basis for patient management decisions. Negativeresults should be considered in the context of a patient'srecent exposures, history and the presence of clinical signsand symptoms consistent with COVID-19.This test has been authorized by the FDA under an EmergencyUse Authorization (EUA) for use by authorized laboratories.Testing performed on the [place] ID NOW utilizing NAAT. 10/08/2022 6:11 PM EST 10/08/2022 6:13 PM EST us [facility] Exter nal Provider LAB MOLECULAR DIAGNOSTICS ORDERABLES Final Result [facility] [address] [place] [phone] * (ABNORMAL) Drug Monitoring, Panel 1, Screen, Urine (10/08/2022 6:00 PM EST) Opiate Screen Urine POSITIVE(A) Not Detect [facility] Comment:Opiate cut-off is 30 0 ng/mL.Positive results are unconfirmed and should not be used fornon-medical purposes. Barbiturates, Urine Not Detected Not Detect [facility] Comment:Barbiturate cut-off is 200 ng/mL.Positive results are unconfirmed and should not be used fornon-medical purposes. Phencyclidine Screen Urine Not Detected Not Detect [facility] Comment:Phencyclidine cut-of f is 25 ng/mL.Positive results are unconfirmed and should not be used fornon-medical purposes. Amphetamine Screen Urine Not Detected Not Detect [facility] Comment:Amphetamine cut-off is 1000 ng/mL.Positive results are unconfirmed and should not be used fornon-medical purposes. Benzodiazepines Screen Urine POSITIVE(A) Not Detect [facility] Comment:Benzodiazepine cut-o ff is 200 ng/mL.Positive results are unconfirmed and should not be used fornon-medical purposes. Cocaine Screen Urine Not Detected Not Detect [facility] Comment:Cocaine cut-off is 3 00 ng/mL.Positive results are unconfirmed and should not be used fornon-medical purposes. Cannabinoid Screen Urine POSITIVE(A) Not Detect [facility] Comment:Cannabinoid cut-off is 50 ng/mL.Positive results are unconfirmed and should not be used fornon-medical purposes. FENTANYL URINE POSITIVE(A) Not Detect [facility] Comment:Fentanyl cut-off is 1 ng/mL.Positive results are unconfirmed and should not be used fornon-medical purposes. 10/08/2022 6:00 PM EST 10/08/2022 6:04 PM EST [facility] External Provider LAB URI NE ORDERABLES Final Result [facility] [address] [place] [address] [phone] * (ABNORMAL) Urinalysis, Complete, with Reflex to Culture (10/08/2022 6:00 PM EST) Color Urine Yellow [facility] Appearance Urine Clear [facility] PH 8.5 5.0 - 9.0 [facility] Glucose Urine UA Negative Negative mg/dL [facility] Urine Blood Negative Negative [facility] Specific [place] - Urine 1.025 1.005 - 1.025 [facility] Urine Protein Trace Neg-Trace mg/dL [facility] Urine Ketones Trace Negative mg/dL [facility] Nitrite Urine Negative Negative [facility] Leukocyte Esterase Urine Trace(A) Negative [facility] RBC Urine 0-2 0 - 2 /HPF [facility] Urine WBC 0-5 0 - 5 /HPF [facility] Urine Squamous Epithelial Cell 0-2 0 - 2 /HPF [facility] Urine Bacteria None Seen None Seen [facility] Hyaline Casts, Urine 0-2 0 - 2 /LPF [facility] 10/08/2022 6:00 PM EST 10/08/2022 6:04 PM EST Narrative [facility] - 10/08/2022 6:14 PM EST [id number], Clean Catch us [facility] External Provider LAB URI NE ORDERABLES Final Result Performing Organization Address City/State/RUST Co de Phone Number [facility] [address] [place] [address] [phone] documented in this encounter Visit Diagnoses Diagnosis Low back pain at multiple sites- Primary documented in this encounter Care Teams Block Out Machine Operator Relationship Specialty Start Date End Date Molly Ford MD [address] [place] [phone] PCP - General Family Medicine 01/07/20 documented as of this encounter
--- OUTSIDE RECORDS SUMMARY | 2024-11-06 02:21 | XMS_ITS | Encounter Summary ---
Author Organization [employer] Address [address] [facility] 7 [place] [address] Care Team Providers Care Bakery Decorator Name Role Phone Molly Ford MD Primary Care Provide r Reason for Visit * Reason Onset Date Comments Hospital Follow-up 08/13/2024 Encounter Details Date Type Department Care Team ([facility] st Contact Info) Description 08/13/2024 Telephone [facility] [address] [place] [address] Molly Ford MD [address] [place] [phone] Hospital Follow-up Social History Tobacco Use Types Packs/Day Years Used Date Smoking Tobacco: Every Day Cigarettes Smokeless Tobacco: Never Depression Answer Date Recorded Patient Health Questionnaire-9 Score 25 10/19/2022 Housing Stability Answer Date Recorded What is your housing situation today? I have gloria jenkins 06/19/[address] you li ve. Do you have problems with any of the following? None of the above 06/19/2023 Food Insecurity Answer Date Recorded Within the past 12 months, y ou worried that your food would run out before you got money to buy more: Often true 06/19/2023 Within the past 12 months,th e food you bought just didn't last and you didn't have enough money to get more: Often true Transportation Answer Date Recorded In the past 12 months, has l ack of transportation kept you from medical appts, meetings, work or from getting things needed for daily living? No 06/19/2023 Utilities Answer Date Recorded In the past 12 months, has t he electric, gas, oil or water company threatened to shut off services in your home? No 06/19/2023 Depression Answer Date Recorded Patient Health Questionnaire-2 Score 6 10/19/2022 Sex and Gender Information Value Date Recorded Sex Assigned at Male 07/04/2022 10:19 AM EDT Legal Sex Male 10:19 AM EDT Gender Identity Male 07/04/2022 10:19 AM EDT Sexual Orientation Straight 07/04/2022 10 :19 AM EDT documented as of this encounter Miscellaneous Notes * Telephone Encounter - Anish Renteria - 08/13/2024 9:33 AM EST Tc from pt requesting a HDF appt. Hospital: [facility] Date of admission: 08/09 Discharge date: 08/13 Diagnosed: Depression with suicidal ideation and Substance induced mood disorder. Contact pt to schedule at [phone] *Send message to Nik Clinical Care Coordinators documented in this encounter Plan of Treatment Upcoming Encounters Date Type Department Care Team (Late st Contact Info) Description 11/14/2024 2:45 PM EDT Office Visit [facility] [address] [place] [address] Molly Ford MD [address] [place] [address] documented as of this encounter Visit Diagnoses Not on filedocumented in this encounter Additional Health Concerns Assessment Noted Time PHQ-9 Depression Total Score: 25 023 3:39 PM EST documented as of this encounter Care Teams Bakery Decorator Relationship Specialty Start Date End Date Molly Ford MD [address] [place] [address] PCP - General Family Medicine 01/07/20 documented as of this encounter
--- OUTSIDE RECORDS SUMMARY | 2024-11-06 02:22 | XMS_ITS | Clinical Summary ---
Author Organization [employer] Address [address] [place] [address] 7 [place] [address] Care Team Providers Care Applications Support Engineer Name Role Phone Molly Ford MD Primary Care Provide r Allergies Active Allergy Reactions Criticality Noted Date Comments Hydroxyzine 04/09/2020 Mouth sores Paroxetine 05/26/2015 Other reaction(s): Flu like symptoms Penicillin G Swelling 05/26/2015 Quetiapine 05/26/2015 Other reaction(s): Muscle stiffness Medications * This document contains information received from the source organization and may not represent a complete record from that organization. naloxone (Narcan) 4 mg/0.1 mL nasal spray Administer 0.1 mL into affected nostril(s) if needed. 0 Active chlorproMAZINE (Thorazine) 25 MG tablet Take 3 tablets by mouth 3 times daily. Active FLUoxetine (PROzac) 20 MG capsule Take 1 capsule by mouth Once per day. Active nicotine polacrilex (Nicorette) 4 MG gum Chew 1 each if needed for smoking cessation. Active methadone (Dolophine) 10 MG/ML solution Take 120 mg by mouth Once per day. Active Active Problems Problem Noted Date Diagnosed Date Benzodiazepine dependence 10/19/2022 Assessment & Plan (03/27/2023 8:57 AM EDT): Assessment: Patient with benzodiazapine dependence declined services/resources in the community. Patient became upset and indicated he would be contacting a golf cart repairer. Patient is displeased with treatment options being provided to him. Patient reports he will be obtaining a new PCP. At this time Ridge Saenz meets criteria for Visit Diagnoses: Problem List Items Addressed This Visit Other Benzodiazepine dependence (CMS/HCC) Patient ready to address current needs No Strengths include: unable to assess PLAN: 1. Follow up with [facility]: Not recommended for follow-up 2. Patient goal is: no goal was established 3. Behavioral Recommendations a. Patient may utilizes options provided b. 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 Date Type Department Care Team Description 11/04/2024 Orders Only [facility] External Provider, [facility] 08/26/2024 Patient Outreach [address] [phone] Molly Ford MD Care Coordination (CM/CHW outreach) 08/22/[address] [phone] Molly Ford MD No Show 08/20/2024 Patient Outreach [address] [phone] Molly Ford MD Care Coordination (CM/CHW outreach #3) 08/14/2024 Patient Outreach [address] [phone] Molly Ford MD Care Coordination (CM/CHW outreach) 08/13/2024 Patient Outreach [address] [phone] Molly Ford MD Transition Of Care (Tcm) (HDF-M ) 08/13/[address] [phone] Molly Ford MD Hospital Follow-up 08/09/2024 Patient Outreach [facility] [address] [place] [address] Molly Ford MD Care Coordination (CM/CHW outreach) from Last 3 Months Immunizations Name Administration Dates Next Due DTP 02/01/1997, 1,1985,1985,1985 Hep B, Adolescent or Pediatric 06/03/1999,1998 Hep B, adult 07/16/2020 Hib (HbO) 07/13/1987 IPV 02/01/1997, 1,1985,1985,1985 Influenza injectable quadriv alent preservative free 09/22/2022,06/16/2021 Influenza, IIV3, injectable 06/06/2024 MMR 12/09/1999,11/27/1986 TD (adult), 2 Lf tetanus tox oid, preservative free, adsorbed 09/07/1995 Social History Tobacco Use Types Packs/Day Years Used Date Smoking Tobacco: Every Day Cigarettes Smokeless Tobacco: Never Tobacco Cessation:Ready to Q uit: Not Asked; Counseling Given: Not Answered Depression Answer Date Recorded Patient Health Questionnaire-9 Score 25 10/19/2022 Housing Stability Answer Date Recorded What is your housing situation today? I have gloriathierno jenkins 06/19/[address] you [...] Orientation Straight 07/04/2022 10 :19 AM EDT Last Filed Vital Signs Vital Sign Reading Time Taken Comments Blood Pressure 103/63 03/24/2023 1:00 PM EDT Pulse 87 03/24/2023 1:00 PM EDT Temperature 36.4 ??C (97.5 ??F) 03/24/2023 1:00 PM ED T Respiratory Rate 18 03/24/2023 1:00 PM EDT Oxygen Saturation 98% 03/24/2023 1:00 PM EDT Inhaled Oxygen Concentration - - Weight 74.3 kg (163 lb 12.8 oz) 03/24/2023 1:00 PM EDT Height 180.3 cm (5' 11 ) 07/19/2022 11: 07 AM EST Body Mass Index 22.85 07/19/2022 11:07 AM EST Plan of Treatment Upcoming Encounters Date Type Department Care Team (Late st Contact Info) Description 11/14/2024 2:45 PM EDT Office Visit [facility] [address] [place] [phone] Molly Ford MD [address] [place] [address] Health Maintenance Due Date Last Done Comments Alcohol/Substance Use Screening 1997 Family Planning (PISQ) 2000 Hepatitis A Vaccines (1 of 2 - Risk 2-dose series) 2004 Pneumococcal Vaccine: Pediatrics (0 to 5 Years) and At-Risk Patients (6 to 49) Years) (1 of 2 - PCV) 2004 DTaP/Tdap/Td Vaccines (6 - Tdap) 02/01/2007 02/01/1997, 09/07/1995, 04/29/1991, Additional history exists Depression Monitoring (PHQ-9) 04/18/2023 10/19/2022, 10/19/2022 Depression Screening 10/19/2023 10/19/2022, 10/19/19 Tobacco Screening 03/24/2024 03/24/2023 SDOH Screening 03/30/2024 03/30/2023 COVID-19 Vaccine ( season) 2024 04/26/2021, 04/05/2021 Lipid Panel 07/15/2025 07/15/2020 Zoster Vaccines (1 of 2) 2035 RSV Patients and Patients Aged 60 years or older (1 - 1-dose 75+ series) 2060 HIB Vaccines Completed 07/13/1987 IPV Vaccines Completed 02/01/1997, 04/05, 1985, Additional history exists HIV Screening Completed 07/15/2020 Hepatitis B Vaccines Completed 07/16/2020, 06/03/1999, 11/19/1998 Influenza Vaccine Completed 06/06/2024, , 06/16/2021 HPV Vaccines Aged Out No longer eligi ble based on patient's age to complete this topic Meningococcal Vaccine Aged Out No allen kary eligible based on patient's age to complete this topic RSV under 20 months Aged Out No longe r eligible based on patient's age to complete this topic Rotavirus Vaccines Aged Out No longer eligible based on patient's age to complete this topic Procedures Procedure Name Priority Date/Time Associated Diagnosis Comments XR CHEST 1 VIEW Routine 11/04/2024 10:32 PM EST HIGH SENSITIVITY TROPONIN I Routine 11/04/2024 9:51 PM EST COMPREHENSIVE METABOLIC PANEL Routine 11/04/2024 9:51 PM EST DRUG MONITOR, PANEL 1, SCREEN, URINE Routine 11/04/2024 9:51 PM EST CBC WITH AUTO DIFFERENTIAL Routine 11/04/2024 9:51 PM EST SARS COV2/INFLUENZA A/B AND RSV RNA QL NAAT Routine 11/04/2024 9:51 PM EST HIV 1/2 ANTIGEN/ANTIBODY, FOURTH GENERATION W/RFL Routine 07/15/2020 10:37 AM EST LIPID PANEL, STANDARD Routine 07/15/2020 10:37 AM EST from Last 3 Months or Most Recently Relevant to Health Maintenance Results * XR Chest 1 View (11/04/2024 10:32 PM EST) Anatomical Region Laterality Modality Chest Radiographic Kiki ging 11/04/2024 10:3 2 PM EST Narrative 11/04/2024 10:33 PM EST ? [facility] ?[address] ?[place] [address] ?XRay Report ? Signed ? Patient: Ridge Saenz ?MR#: [id number] ?? [id number] ? : 1985 ?Acct:[id number] ? Age/Sex: 39 / M ?ADM Date: 11/04/24 ? Loc: HO.ED ? Attending Dr: ? Ordering Physician: Generic ED Physician ?? Date of Service: 11/04/24 ?? Procedure(s): XR chest 1V ?? Accession Number(s): [id number] ? cc: Molly Ford MD; Generic ED Physician ? CLINICAL HISTORY: pain in left chest ? Chest X-ray, 1 View ? COMPARISON: CR/SR - XR CHEST 1V - 05/08/23 22:07 EDT ? FINDINGS: ?? Left lower lung consolidation. ?? Blunting of the left costophrenic angle. ?? No pneumothorax. ?? No cardiomegaly. ?? No acute fracture. ? IMPRESSION: ?? Left lower lung consolidation. ?? Left pleural effusion. ? This document has been electronically signed by: Issac Dorantes MD on ?? 11/04/2024 22:32:20 ? Dictated By: ?Issac Dorantes MD ? Signed By: ?<Electronically signed by Issac Dorantes MD in OV> ?11/04/243 ? DD/ 31 ? TD/TT: 11/04/242231 ? Chief Of Hospital Medicine: ? Procedure Note Aleisha Pelayo - 11/04/[address] [place] [address] XRay Report Signed Patient: Ridge Saenz JMR#: [id number] : 1985Acct:[id number] Age/Sex: 39 / MADM Date: 11/04/24 Loc: HO.ED Attending Dr: Ordering Physician: Generic ED Physician Date of Service: 11/04/24 Procedure(s): XR chest 1V Accession Number(s): [id number] cc: Molly Ford MD; Generic ED Physician CLINICAL HISTORY: pain in left chest Chest X-ray, 1 View COMPARISON: CR/SR - XR CHEST 1V - 05/08/23 22:07 EDT FINDINGS: Left lower lung consolidation. Blunting of the left costophrenic angle. No pneumothorax. No cardiomegaly. No acute fracture. IMPRESSION: Left lower lung consolidation. Left pleural effusion. This document has been electronically signed by: Issac Dorantes MD on 11/04/2024 22:32:20 Dictated By: Issac Dorantes MD Signed By: <Electronically signed by Issac Dorantes MD in OV> 11/04/242232 DD/ 31 TD/TT: 11/04/242231 Chief Of Hospital Medicine: [facility] External Provider IMG XR PROCEDURES Edited Result - Final * High Sensitivity Troponin I (11/04/2024 9:51 PM EST) TROPONIN I HIGH SENSITIVITY 6.5 <3.5 - 35.0 ng/L [facility] Comment:The Enrique high sens itivity Troponin-I results should beused in conjunction with other diagnostic information suchas ECG, clinical observations and information, and patientsymptoms to aid in the diagnosis of PA. 11/04/2024 9:51 PM EST 11/04/2024 9:54 PM EST Generic External Data Provider LAB BLOOD ORDERAB LES Final Result [facility] [address] [place] [phone] * SARS-CoV-2 RNA, Influenza A/B, and RSV RNA, Ql NAAT (11/04/2024 9:51 PM EST) Pathologist [facility] Influenza A PCR NEGATIVE Negative [facility] Influenza B PCR NEGATIVE Negative [facility] Resp Syncy Virus RNA Qual PCR NEGATIVE Negative [facility] SARS COV2 PCR NEGATIVE Negative [facility] Comment:All test results mus t be correlated with clinical findings.Negative results do not preclude SARS-CoV2, influenza Avirus, influenza B virus and/or RSV infectionand should not be used as the sole basis for treatment orother patient management decisions. Negative results must becombined with clinical observations, patient history, andepidemiological information.This test has not been evaluated for monitoring treatment ofinfection.This test has been authorized by the FDA under an EmergencyUse Authorization (EUA) for use by authorized laboratories.Testing performed on the [employer] GeneXpert utilizingreal-time RT-PCR.All SARS CoV2 and positive influenza A/B results arereported to [facility]. 11/04/2024 9:51 PM EST 11/04/2024 9:54 PM EST us Generic External Data Provider LAB MICROBIOLOGY - GENERAL ORDERABLES Final Result [facility] [address] [place] [phone] * (ABNORMAL) Drug Monitoring, Panel 1, Screen, Urine (11/04/2024 9:51 PM EST) Pathologist [facility] Opiate Screen Urine Not Detected Not Detect [facility] Comment:Opiate cut-off is 30 0 ng/mL.Positive results are unconfirmed and should not be used fornon-medical purposes. Barbiturates, Urine Not Detected Not Detect [facility] Comment:Barbiturate cut-off is 200 ng/mL.Positive results are unconfirmed and should not be used fornon-medical purposes. Phencyclidine Screen Urine Not Detected Not Detect [facility] Comment:Phencyclidine cut-of f is 25 ng/mL.Positive results are unconfirmed and should not be used fornon-medical purposes. Amphetamine Screen Urine Not Detected Not Detect [facility] Comment:Amphetamine cut-off is 1000 ng/mL.Positive results are unconfirmed and should not be used fornon-medical purposes. Benzodiazepines Screen Urine Not Detected Not Detect [facility] Comment:Benzodiazepine cut-o ff is 200 ng/mL.Positive results are unconfirmed and should not be used fornon-medical purposes. Cocaine Screen Urine POSITIVE(A) Not Detect [facility] Comment:Cocaine cut-off is 3 00 ng/mL.Positive results are unconfirmed and should not be used fornon-medical purposes. Cannabinoid Screen Urine Not Detected Not Detect [facility] Comment:Cannabinoid cut-off is 50 ng/mL.Positive results are unconfirmed and should not be used fornon-medical purposes. Methadone Screen, Urine Positive(A) Not Detect ng/mL [facility] Comment:Methadone cut-off is 300 ng/mL.Positive results are unconfirmed and should not be used fornon-medical purposes. FENTANYL URINE POSITIVE(A) Not Detect [facility] Comment:Fentanyl cut-off is 1 ng/mL.Positive results are unconfirmed and should not be used fornon-medical purposes. Oxycodone Urine Screen Not Detected Not Detect ng/mL [facility] Comment:Oxycodone cut-off is 100 ng/mL.Positive results are unconfirmed and should not be used fornon-medical purposes. Buprenorphine Screen Not Detected Not Detect ng/mL [facility] Comment:Buprenorphine cut-of f is 5 ng/mL.Positive results are unconfirmed and should not be used fornon-medical purposes. 11/04/2024 9:51 PM EST 11/04/2024 9:54 PM EST us Generic External Data Provider LAB URINE ORDERAB LES Final Result [facility] [address] [place] [phone] * (ABNORMAL) CBC auto differential (11/04/2024 9:51 PM EST) Pathologist [facility] White Blood Count 10.5 4.8 - 10.8 X10*3/uL [facility] Red Blood Count 4.68 4.60 - 5.80 X10*6/uL [facility] Hemoglobin 12.6(L) 14.0 - 18.0 g/dl [facility] Hematocrit 38.2(L) 42.0 - 52.0 % [facility] Mean Corpuscular Volume 81.6 80.0 - 98.0 fL [facility] Mean Corpuscular Hemoglobin 26.9(L) 27.0 - 33.0 pg [facility] Mean Corpuscular HGB Conc 33.0 31.0 - 36.0 g/dl [facility] Red Cell Distribution Width 13.2 11.0 - 16.0 % [facility] Platelet Count 182 160 - 400 X10*3/uL [facility] Mean Platelet Volume 9.9 9.4 - 12.4 fL [facility] Neutrophils Percent Auto 85.5(H) 45 - 73 % [facility] Imm Gran Pct Auto 0.3 0.0 - 0.4 % [facility] Lymphocytes Percent Auto 9.1(L) 20 - 40 % [facility] Monocytes Percent Auto 4.7 2 - 11 % [facility] Eosinophils Percent Auto 0.2 0 - 4 % [facility] Basophils Percent Auto 0.2 0 - 2 % [facility] NRBC Pct Auto 0.0 0.0 - 0.2 /100WBC [facility] Neutrophils Absolute Auto 9.0(H) 2.0 - 8.3 x10*3/uL [facility] Imm Gran Abs Auto 0.03 0.00 - 0.03 X10*3/uL [facility] Lymphocytes Absolute Auto 1.0(L) 1.2 - 4.9 X10*3/uL [facility] Monocytes Absolute Auto 0.5 0.1 - 1.2 X10*3/uL [facility] Eosinophils Absolute Auto 0.0 0.0 - 0.4 X10*3/uL [facility] Basophils Absolute Auto 0.0 0.0 - 0.2 X10*3/uL [facility] NRBC Abs Auto 0.000 0.0 - 0.012 X10*3/uL [facility] 11/04/2024 9:51 PM EST 11/04/2024 9:54 PM EST us Generic External Data Provider LAB BLOOD ORDERAB LES Final Result [facility] [address] [place] [address] [phone] * (ABNORMAL) Comprehensive Metabolic Panel (11/04/2024 9:51 PM EST) Sodium 139 135 - 145 mmol/L [facility] Potassium 4.4 3.3 - 5.1 mmol/L [facility] Chloride 105 96 - 108 mmol/L [facility] Carbon Dioxide 25 22 - 29 mmol/L [facility] Anion Gap 13 12 - 20 [facility] Urea Nitrogen (BUN) 23(H) 9 - 16 mg/dL [facility] Creatinine, Serum 1.19 0.5 - 1.4 mg/dL [facility] Creatinine Clr Calc Pharmacy 86.0 [facility] Comment:eGFR (calculated fro m the MDRD study equation) and eCrCl(calculated from the Cockcroft-Gault equation) are based ondifferent parameters and may not yield comparable results.If eCrCl result is absurd, please check patient'sheight/weight. Estimated Glomerular Filt Rate >60 [facility] Comment:Chronic Kidney Disea se: Estimated GFR < 60 mL/min/1.97l1[place] Kidney Disease: Estimated GFR < 15 mL/min/1.73m2 Glucose 102 60 - 115 mg/dL [facility] Calcium 9.2 8.4 - 10.2 mg/dL [facility] Bilirubin, Total 0.3 0.0 - 1.0 mg/dL [facility] Aspartate Amino Transferase 32 5 - 37 U/L [facility] Alanine Aminotransferase 20 0 - 40 U/L [facility] Total Protein 8.0 6.5 - 8.0 g/dL [facility] Albumin Level 4.4 3.5 - 5.0 g/dL [facility] Alkaline Phosphatase 84 39 - 117 U/L [facility] 11/04/2024 9:51 PM EST 11/04/2024 9:54 PM EST us Generic External Data Provider LAB BLOOD ORDERAB LES Final Result [facility] [address] [place] [phone] [phone] * HIV 1/2 ANTIGEN/ANTIBODY,FOURTH GENERATION W/RFL (07/15/2020 10:37 AM EST) Pathologist [facility] HIV-1/2 ANTIGEN AND ANTIBODIES, 4TH GENERATION W/ REFLEX NON-REACT [facility] Comment: HIV-1 antigen and HIV-1/HIV-2 antibodies were not detected. There is no laboratory evidence of HIV infection. ?? PLEASE NOTE: This information has been disclosed to you from records whose confidentiality may be protected by state law. ??If your state requires such protection, then the state law prohibits you from making any further disclosure of the information without the specific written consent of the person to whom it pertains, or as otherwise permitted by law. A general authorization for the release of medical or other information is NOT sufficient for this purpose. ? For additional information please refer to http://education.[employer]/faq/OQM045 (This link is being provided for informational/ educational purposes only.) ? The performance of this assay has not been clinically validated in patients less than 2 years old. ?? HIV-1/2 ANTIGEN AND ANTIBODIES, 4TH GENERATION W/ REFLEX NON-REACT [facility] Comment: HIV-1 antigen and HIV-1/HIV-2 antibodies were not detected. There is no laboratory evidence of HIV infection. ?? PLEASE NOTE: This information has been disclosed to you from records whose confidentiality may be protected by state law. ??If your state requires such protection, then the state law prohibits you from making any further disclosure of the information without the specific written consent of the person to whom it pertains, or as otherwise permitted by law. A general authorization for the release of medical or other information is NOT sufficient for this purpose. ? For additional information please refer to http://[employer]/faq/FMG971 (This link is being provided for informational/ educational purposes only.) ? The performance of this assay has not been clinically validated in patients less than 2 years old. ?? HIV-1/2 ANTIGEN AND ANTIBODIES, 4TH GENERATION W/ REFLEX NON-REACT [facility] Comment: HIV-1 antigen and HIV-1/HIV-2 antibodies were not detected. There is no laboratory evidence of HIV infection. ?? PLEASE NOTE: This information has been disclosed to you from records whose confidentiality may be protected by state law. ??If your state requires such protection, then the state law prohibits you from making any further disclosure of the information without the specific written consent of the person to whom it pertains, or as otherwise permitted by law. A general authorization for the release of medical or other information is NOT sufficient for this purpose. ? For additional information please refer to http://[employer]/faq/KRW700 (This link is being provided for informational/ educational purposes only.) ? The performance of this assay has not been clinically validated in patients less than 2 years old. ?? HIV-1/2 ANTIGEN AND ANTIBODIES, 4TH GENERATION W/ REFLEX NON-REACT [facility] Comment: HIV-1 antigen and HIV-1/HIV-2 antibodies were not detected. There is no laboratory evidence of HIV infection. ?? PLEASE NOTE: This information has been disclosed to you from records whose confidentiality may be protected by state law. ??If your state requires such protection, then the state law prohibits you from making any further disclosure of the information without the specific written consent of the person to whom it pertains, or as otherwise permitted by law. A general authorization for the release of medical or other information is NOT sufficient for this purpose. ? For additional information please refer to http://[employer]/faq/PSZ748 (This link is being provided for informational/ educational purposes only.) ? The performance of this assay has not been clinically validated in patients less than 2 years old. ?? HIV-1/2 ANTIGEN AND ANTIBODIES, 4TH GENERATION W/ REFLEX NON-REACT OTILIO NON-REACT OTILIO [facility] Comment: HIV-1 antigen and HIV-1/HIV-2 antibodies were not detected. There is no laboratory evidence of HIV infection. ?? PLEASE NOTE: This information has been disclosed to you from records whose confidentiality may be protected by state law. ??If your state requires such protection, then the state law prohibits you from making any further disclosure of the information without the specific written consent of the person to whom it pertains, or as otherwise permitted by law. A general authorization for the release of medical or other information is NOT sufficient for this purpose. ? For additional information please refer to http://education.[employer]/faq/DMY336 (This link is being provided for informational/ educational purposes only.) ? The performance of this assay has not been clinically validated in patients less than 2 years old. ?? 07/15/2020 10:3 7 AM EST Molly Alejandro MD LAB BLOOD ORDERABLES Final Result [facility] [address] * (ABNORMAL) LIPID PANEL, STANDARD (07/15/2020 10:37 AM EST) HDL Cholesterol 39(L) > OR = 40 mg/dL [facility] Chol/HDLC Ratio 3.0 <5.0 (calc) [facility] HDL Cholesterol 39(L) > OR = 40 mg/dL [facility] LDL Cholesterol 59 mg/dL (calc) [facility] Comment: Reference range: <100 ?? Desirable range <100 mg/dL for primary prevention; ?? <70 mg/dL for patients with CHD or diabetic patients ?? with > or = 2 CHD risk factors. ?? LDL-C is now calculated using the Jhony ?? calculation, which is a validated novel method providing ?? better accuracy than the Friedewald equation in the ?? estimation of LDL-C. ?? Devendra FOOTE et al. JUAREZ. 2013;310(19): 1637-9196 ?? (http://[employer]/faq/VYY728) Non-HDL Cholesterol 77 <130 mg/dL (calc) [facility] Comment: For patients with diabetes plus 1 major ASCVD risk ?? factor, treating to a non-HDL-C goal of <100 mg/dL ?? (LDL-C of <70 mg/dL) is considered a therapeutic ?? option. Chol/HDLC Ratio 3.0 <5.0 (calc) [facility] Triglycerides 93 <150 mg/dL [facility] HDL Cholesterol 39(L) > OR = 40 mg/dL [facility] Triglycerides 93 <150 mg/dL [facility] Non-HDL Cholesterol 77 <130 mg/dL (calc) [facility] Comment: For patients with diabetes plus 1 major ASCVD risk ?? factor, treating to a non-HDL-C goal of <100 mg/dL ?? (LDL-C of <70 mg/dL) is considered a therapeutic ?? option. Cholesterol, Total 116 <200 mg/dL [facility] Triglycerides 93 <150 mg/dL [facility] Chol/HDLC Ratio 3.0 <5.0 (calc) [facility] Cholesterol, Total 116 <200 mg/dL [facility] Triglycerides 93 <150 mg/dL [facility] LDL Cholesterol 59 mg/dL (calc) [facility] Comment: Reference range: <100 ?? Desirable range <100 mg/dL for primary prevention; ?? <70 mg/dL for patients with CHD or diabetic patients ?? with > or = 2 CHD risk factors. ?? LDL-C is now calculated using the Jhony ?? calculation, which is a validated novel method providing ?? better accuracy than the Friedewald equation in the ?? estimation of LDL-C. ?? Devendra FOOTE et al. JUAREZ. 2013;310(19): 7876-5344 ?? (http://[employer]/faq/BQB295) Non-HDL Cholesterol 77 <130 mg/dL (calc) [facility] Comment: For patients with diabetes plus 1 major ASCVD risk ?? factor, treating to a non-HDL-C goal of <100 mg/dL ?? (LDL-C of <70 mg/dL) is considered a therapeutic ?? option. HDL Cholesterol 39(L) > OR = 40 mg/dL [facility] LDL Cholesterol 59 mg/dL (calc) [facility] Comment: Reference range: <100 ?? Desirable range <100 mg/dL for primary prevention; ?? <70 mg/dL for patients with CHD or diabetic patients ?? with > or = 2 CHD risk factors. ?? LDL-C is now calculated using the Devendra-Perera ?? calculation, which is a validated novel method providing ?? better accuracy than the Friedewald equation in the ?? estimation of LDL-C. ?? Devendra SS et al. JUAREZ. 2013;310(19): 5346-3284 ?? (http://[employer]/faq/MVH597) LDL Cholesterol 59 mg/dL (calc) [facility] Comment: Reference range: <100 ?? Desirable range <100 mg/dL for primary prevention; ?? <70 mg/dL for patients with CHD or diabetic patients ?? with > or = 2 CHD risk factors. ?? LDL-C is now calculated using the Devendra-Perera ?? calculation, which is a validated novel method providing ?? better accuracy than the Friedewald equation in the ?? estimation of LDL-C. ?? Devendra SS et al. JUAREZ. 2013;310(19): 6658-8343 ?? (http://[employer]/faq/BZE494) Cholesterol, Total 116 <200 mg/dL [facility] Non-HDL Cholesterol 77 <130 mg/dL (calc) [facility] Comment: For patients with diabetes plus 1 major ASCVD risk ?? factor, treating to a non-HDL-C goal of <100 mg/dL ?? (LDL-C of <70 mg/dL) is considered a therapeutic ?? option. Cholesterol, Total 116 <200 mg/dL [facility] Chol/HDLC Ratio 3.0 <5.0 (calc) [facility] 07/15/2020 10:3 7 AM EST Molly Alejandro MD LAB BLOOD ORDERABLES Final Result [facility] [address] [place] [address], from Last 3 Months or Most Recently Relevant to Health Maintenance Insurance * Guarantor: Ridge Saenz Account Type Relation to Patient Date of Phone Billing Address Personal/Family Self [address] Care Teams Applications Support Engineer Relationship Specialty Start Date End Date Molly Ford MD [address] [place] [id number] PCP - General Family Medicine 01/07/20
--- NOTE | 2024-11-06 02:23 | MHC.EDTECH ---
pt belongings moved from [facility] to locker #6 on arrival to the pod.
--- NOTE | 2024-11-06 09:30 | PC.NURSE ---
Methadone dose verified over the phone at [facility]. last dose 140mg PO on 11/05 at 0800.
--- NOTE | 2024-11-06 09:54 | HE.PHANOTE ---
METHADONE Pt last received 140mg on 11/05 @ 0800 per IMELDA Mcclendon, at [facility], .
[2024-11-06] MEDS: methADONE HCl 20 MG/2 ML ORAL.CONC 140 MG PO (10:24)
--- NOTE | 2024-11-06 10:47 | ECG_ITS ---
Test Reason : polysubstance user Blood Pressure : */* mmHG Vent. Rate : 68 BPM Atrial Rate : 68 BPM P-R Int : 164 ms QRS Dur : 80 ms QT Int : 454 ms P-R-T Axes : 51 41 47 degrees QTcB Int : 482 ms Normal sinus rhythm Prolonged QT Abnormal ECG When compared with ECG of 08-Aug-2024 08:27, Premature supraventricular complexes are no longer Present Referred By: Justyn Magallon Electronically Signed By: LAUREN CISNEROS MD
[2024-11-06 12:42] VITALS: BP 106/58; PULSE 78; RESP 14; TEMP 37.6; O2SAT 95
--- NOTE | 2024-11-06 15:14 | PC.NURSE ---
Report to Rebecca Donahue
[2024-11-06 16:18] VITALS: BMI 26.7
[2024-11-06 16:19] VITALS: BP 150/73; PULSE 78; RESP 17; TEMP 37.3; O2SAT 97
[2024-11-06] MEDS: Gabapentin 300 MG CAPSULE PO ×2 (16:36→22:24)
--- NOTE | 2024-11-06 16:39 | PC.ADMIT ---
Patient arrived at 15:45 on a CV from the ED POD for treatment of Unspecified Depressive Disorder and Substance use Disorder. According to the CARE team assessment, pt self admitted to our ED with SI and a plan to overdose. Patient was discharged from [facility] (the day before admitting to [facility]) after a 90 day stay, but reports once they discharged him, he relapsed on substances. Ridge is know to [facility], with his last admission being here in August secondary to SI with plan and substance abuse. Patient states after his most recent discharge, I was diagnosed with pneumonia, the pain was so bad that once I was on the streets I used fentanyl thinking it would help, but it didn't . Patient reports an increase in depression It get's worse when I'm back on the streets. I just start to feel suicidal . He denies current SI but rates depression and anxiety as high . Patient's affect is flat and he is avoidant of eye contact during interactions with this nurse, though he is pleasant and cooperative. Tox screen positive for opiates, fentanyl, methadone and cocaine. I snorted the fentanyl before coming here, the cocaine was probably mixed with it . Upon skin assessment, a small blister was noted to the patient's right pinky toe, otherwise all other skin is WDI. Other than his pain, he denies any other acute complaints at this time, placed on 15 minute checks.
[2024-11-06 20:43] VITALS: BP 97/53; PULSE 62; RESP 16; TEMP 36.8; O2SAT 94
[2024-11-06] MEDS: traZODone HCL 50 MG TABLET PO (22:24)
--- NOTE | 2024-11-07 | ECG_ITS ---
Test Reason : ECT clearance, previous with prolonged QTc Blood Pressure : */* mmHG Vent. Rate : 54 BPM Atrial Rate : 54 BPM P-R Int : 154 ms QRS Dur : 76 ms QT Int : 470 ms P-R-T Axes : 57 48 50 degrees QTcB Int : 445 ms Sinus bradycardia Otherwise normal ECG When compared with ECG of 06-Nov-2024 11:08, No significant change was found Referred By: Andrade Workman Electronically Signed By: LAUREN CISNEROS MD
[2024-11-07 07:00] VITALS: BMI 26.4
[2024-11-07 07:38] VITALS: BP 117/73; PULSE 74; RESP 16; TEMP 36.8; O2SAT 93
[2024-11-07] MEDS: methADONE HCl 20 MG/2 ML ORAL.CONC 140 MG PO (07:55)
[2024-11-07] MEDS: Gabapentin 300 MG CAPSULE PO ×3 (08:16→22:00)
[2024-11-07] MEDS: FLUoxetine HCl 20 MG CAPSULE PO (08:16)
[2024-11-07] MEDS: Ibuprofen 800 MG TABLET PO (08:30)
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
--- NOTE | 2024-11-07 16:53 | HO.ECT-CONS ---
History of Present Illness Data of Consult Service Date: 11/07/24 Primary Care Provider: Unknown Physician HPI Reason for consult: ECT Risk Stratification The pt is a 39-year-old male with a PMH mild intermittent asthma, polysubstance use disorder on methadone, and PTSD admitted to [facility] unit with hospitalist consult for ECT risk stratification. Pt reports he has never undergone ECT in before. Denies any PMH of cerebral hemorrhage or stroke, CAD, space-occupying intracranial lesion, seizure, or TBI.? No known history of bleeding disorders or otherwise unstable vascular aneurysms, severe pulmonary conditions, or past problems with anesthesia. The pt reports he has had multiple surgical procedures in the past, including dental and on his knee x4. Was diagnosed in the ED 4 days prior on 11/04 with pneumonia and started on Levaquin. However, pt denies any pulmonary complaints including SOB, cough, or difficulty breathing. States had an intermittent pain in his left upper back, but that has gone away. States he would not have known he had pneumonia if he did not get a CXR. The pt currently has no other acute medical complaints. Denies fever, chills, nausea, vomiting, abdominal pain. No headache or acute vision changes. Denies chest pain/pressure, palpitations. Vitals reviewed, stable and WNL. EKG on 11/06/2024 showed normal sinus rhythm with QTc slightly prolonged at 482, but no evidence of ST elevations or depressions. Repeat EKG showed sinus bradycardia of 54 and normal QTc of 445. No evidence of significant ischemic changes. Review of Systems Review of Systems: Pt has no acute medical complaints at this time. [facility] Medical History Fentanyl use disorder, severe Benzodiazepine abuse MDD (major depressive disorder), recurrent episode Cellulitis Depression Polysubstance abuse Knee cartilage, torn, right ACL (anterior cruciate ligament) rupture Asthma Hepatitis C Hepatitis C antibody positive in blood Social History Household Members: None Household Members Other:: brother Housing: Homeless Do you presently have visiting nurse or other home services: No Unable to assess alcohol history related to: Unknown Alcohol intake: former Comment: pt on 5 min safety checks Patient Tobacco Use Status: Former Tobacco user Tobacco use type: Cigarette Cigarette Packs Per Day: 10 Cigarettes Per Day: 10 Years Smoked: 10 Smoked in Last 30 Days: Yes e-Cigarette/Vaping Use: Currently Using Patient Interested in Nicotine Replacement: Yes Second Hand Smoke Exposure: No Use of substances other than those prescribed or required for medical reasons: Yes Substance Use Type: Other Substance Use Type Other:: fentanyl Substance Use Frequency: Occasionally Last Used Substance: Just Prior to Admission Currently Displaying Signs/Symptoms of Drug Intoxication Withdrawal: No Any prior treatment program specific to substance use: Yes (methadone clinic) Have you been hit, kicked, punched, or otherwise hurt by someone within the past year? If so, by whom?: No Do you feel safe in your current relationship?: No Current Relationship Is there a partner from a previous relationship who is making you feel unsafe now?: No Are you made to feel afraid or neglected: No [facility] Practices: zoroastrianism Advance Directives: No Advance Directives Information Provided: Yes Do you have thoughts of harming others: None Do you have a plan to hurt others: No Plan Recently lost weight without trying: No Eating poorly because of decreased appetite: No Poor oral hygiene: No service: No Sexual orientation: Straight/Heterosexual Meds Allergies Allergy/AdvReac Type Severity Reaction Status Date / Time mayonnaise [MAYONNAISE] Allergy Intermediate THROAT AND Verified 11/05/24 23:25 TONGUE ITCH quetiapine [From SEROQUEL] Allergy Intermediate DYSTONIA Verified 11/05/24 23:25 cat dander [CATS] Allergy Unknown WATERY Verified 11/05/24 23:25 EYES, SNEEZING dog dander [DOG] Allergy Unknown UNKNOWN Verified 11/05/24 23:25 paroxetine [From PAXIL] Allergy Unknown FLU LIKE Verified 11/05/24 23:25 SYMPTOMS penicillin V Allergy Unknown Unknown Verified 11/05/24 23:25 Penicillins [PENICILLINS] Allergy Unknown SWELLING Verified 11/05/24 23:25 SEAFOOD Allergy Severe DIFFICULTY Uncoded 11/05/24 23:25 BREATHING Active Medications: Current Medications Acetaminophen (Acetaminophen 325 Mg Tablet) 975 mg PO Q6H PRN PRN Reason: Headache/Pain, Scale 1-3 Al Hydroxide/Mg Hydroxide (Magnesium Hydrox/Alum Hydrox 30 Ml Oral.Susp) 30 ml PO Q6H PRN PRN Reason: Heartburn/Nausea Chlorpromazine HCl (Chlorpromazine Hcl 25 Mg Tablet) 125 mg PO Q4H PRN PRN Reason: anxiety Fluoxetine HCl (Fluoxetine Hcl 20 Mg Capsule) 20 mg PO DAILY [facility] Last Admin: 11/07/24 08:16 Dose: 20 mg Gabapentin (Gabapentin 300 Mg Capsule) 300 mg PO TID [facility] Last Admin: 11/07/24 15:07 Dose: 300 mg Hydroxyzine HCl (Hydroxyzine Hcl 25 Mg Tablet) 25 mg PO Q6H PRN PRN Reason: mild anxiety Ibuprofen (Ibuprofen 800 Mg Tablet) 800 mg PO Q8H PRN PRN Reason: Pain (Pain Scale 4-10) Last Admin: 11/07/24 08:30 Dose: 800 mg Levofloxacin (Levofloxacin 500 Mg Tablet) 500 mg PO BEDTIME [facility] Last Admin: 11/06/24 22:24 Dose: 500 mg Magnesium Hydroxide (Milk Of Magnesia 30 Ml Oral.Susp) 30 ml PO DAILY PRN PRN Reason: Constipation Methadone HCl (Methadone Hcl 20 Mg/2 Ml Oral.Conc) 140 mg PO DAILY [facility] Last Admin: 11/07/24 07:55 Dose: 140 mg Nicotine Polacrilex (Nicotine Polacrilex 2 Mg Gum) 4 mg BUCCAL Q2H PRN PRN Reason: Nicotine Cravings Trazodone HCl (Trazodone Hcl 50 Mg Tablet) 50 mg PO BEDTIME MRX1 PRN PRN Reason: Insomnia Last Admin: 11/06/24 22:24 Dose: 50 mg Home Medications ?Medication ?Instructions ?Recorded ?Confirmed ?Last Taken ?Type methadone 10 mg/mL oral 140 mg PO DAILY 11/06/24 11/06/24 11/05/24 08:00 History concentrate (Methadose) Physical Exam Vital Signs and Narrative: Vital Signs: Last Vital Signs Temp 98.2 F 11/07/24 07:38 Pulse 74 11/07/24 07:38 Resp 16 11/07/24 07:38 BP 117/73 11/07/24 07:38 Pulse Ox 93 11/07/24 07:38 O2 Del Method Room Air 11/07/24 07:38 BMI result Body Mass Index 26.4 General: AOx3, no acute distress Resp: CTA bilaterally CVS: S1, S2, RRR GI: +BS, NT, no distention Skin: Warm, dry Neuro: Cranial nerves II-XII grossly intact bilaterally. Motor grossly intact bilaterally Extremities: No edema Psych: Flat affect Assessment and Plan (1) Pre-op evaluation: Status: Acute Plan The pt is a 39-year-old male with a PMH mild intermittent asthma, polysubstance use disorder on methadone, and PTSD admitted to [facility] with hospitalist consult for ECT risk stratification. ECT risk stratification Patient without previous problems with anesthesia, hx of multiple past surgeries RCRI 0 points, no further cardiac workup or treatment indicated at this time EKG showing QTc WNL, no evidence of ischemic changes Based on stated PMH, HPI, and physical exam, there are no apparent medical contraindications to the planned procedure Thank you for allowing us to participate in the care of this patient. Signing off at this time. Please re-consult if any acute complaints or issues arise.
[2024-11-07 19:48] VITALS: BP 126/77; PULSE 59; RESP 16; TEMP 36.9; O2SAT 97
[2024-11-07] MEDS: levoFLOXacin 500 MG TABLET PO (22:00)
[2024-11-07] MEDS: traZODone HCL 50 MG TABLET PO (22:00)
[2024-11-07] MEDS: chlorproMAZINE HCl 25 MG TABLET 125 MG PO (22:01)
[2024-11-08 08:10] VITALS: BP 99/65; PULSE 68; RESP 18; TEMP 36.8; O2SAT 98
[2024-11-08] MEDS: methADONE HCl 20 MG/2 ML ORAL.CONC 140 MG PO (08:10)
[2024-11-08] MEDS: Gabapentin 300 MG CAPSULE PO ×2 (08:16→20:49)
[2024-11-08] MEDS: FLUoxetine HCl 20 MG CAPSULE PO (08:16)
[2024-11-08] MEDS: Ibuprofen 800 MG TABLET PO ×2 (08:18→20:49)
[2024-11-08] MEDS: Nicotine Polacrilex 2 MG GUM 4 MG BUCCAL (10:20)
--- NOTE | 2024-11-08 14:13 | P.PNPSI_ITS ---
Subjective Subjective Date of Service: 11/08/24 Reason For Visit: SI Interim History: reports depression, would like to pursue ECT. agreeable to increase prozac to 40 mg. states his back pain has improved a lot. per staff, poor sleep. getting motrin for flank pain. EKG completed. Mental Status Exam Mental Status Exam Narrative: appropriately dressed and groomed. cooperative. PMR. speech slowed, soft, decreased in amount. reduced prosody. thoughts linear and logical. affect constricted, hypo-intense, non-labile. mood depressed. no SI/HI/AVH expressed. Diagnostics Vital Signs (24Hr): Vital Signs - 24 hr 11/07/24 19:48 11/08/24 08:10 Temperature 98.4 F 98.3 F Pulse Rate 59 68 Respiratory Rate 16 18 Blood Pressure 126/77 99/65 Pulse Oximetry 97 98 Oxygen Delivery Method Room Air Room Air BMI result Body Mass Index 26.4 Medications Medications Current Medications Acetaminophen (Acetaminophen 325 Mg Tablet) 975 mg PO Q6H PRN PRN Reason: Headache/Pain, Scale 1-3 Al Hydroxide/Mg Hydroxide (Magnesium Hydrox/Alum Hydrox 30 Ml Oral.Susp) 30 ml PO Q6H PRN PRN Reason: Heartburn/Nausea Chlorpromazine HCl (Chlorpromazine Hcl 25 Mg Tablet) 125 mg PO Q4H PRN PRN Reason: anxiety Last Admin: 11/07/24 22:01 Dose: 125 mg Fluoxetine HCl (Fluoxetine Hcl 20 Mg Capsule) 40 mg PO DAILY [facility] Gabapentin (Gabapentin 300 Mg Capsule) 300 mg PO TID [facility] Last Admin: 11/08/24 08:16 Dose: 300 mg Hydroxyzine HCl (Hydroxyzine Hcl 25 Mg Tablet) 25 mg PO Q6H PRN PRN Reason: mild anxiety Ibuprofen (Ibuprofen 800 Mg Tablet) 800 mg PO Q8H PRN PRN Reason: Pain (Pain Scale 4-10) Last Admin: 11/08/24 08:18 Dose: 800 mg Levofloxacin (Levofloxacin 500 Mg Tablet) 500 mg PO BEDTIME [facility] Last Admin: 11/07/24 22:00 Dose: 500 mg Magnesium Hydroxide (Milk Of Magnesia 30 Ml Oral.Susp) 30 ml PO DAILY PRN PRN Reason: Constipation Methadone HCl (Methadone Hcl 20 Mg/2 Ml Oral.Conc) 140 mg PO DAILY [facility] Last Admin: 11/08/24 08:10 Dose: 140 mg Nicotine Polacrilex (Nicotine Polacrilex 2 Mg Gum) 4 mg BUCCAL Q2H PRN PRN Reason: Nicotine Cravings Last Admin: 11/08/24 10:20 Dose: 4 mg Trazodone HCl (Trazodone Hcl 50 Mg Tablet) 50 mg PO BEDTIME MRX1 PRN PRN Reason: Insomnia Last Admin: 11/07/24 22:00 Dose: 50 mg Allergies Allergies Allergy/AdvReac Type Severity Reaction Status Date / Time mayonnaise [MAYONNAISE] Allergy Intermediate THROAT AND Verified 11/05/24 23:25 TONGUE ITCH quetiapine [From SEROQUEL] Allergy Intermediate DYSTONIA Verified 11/05/24 23:25 cat dander [CATS] Allergy Unknown WATERY Verified 11/05/24 23:25 EYES, SNEEZING dog dander [DOG] Allergy Unknown UNKNOWN Verified 11/05/24 23:25 paroxetine [From PAXIL] Allergy Unknown FLU LIKE Verified 11/05/24 23:25 SYMPTOMS penicillin V Allergy Unknown Unknown Verified 11/05/24 23:25 Penicillins [PENICILLINS] Allergy Unknown SWELLING Verified 11/05/24 23:25 SEAFOOD Allergy Severe DIFFICULTY Uncoded 11/05/24 23:25 BREATHING Assessment & Plan Assessment & Plan (1) Pre-op evaluation: Status: Acute Code(s): Z01.818 - Encounter for other preprocedural examination Assessment and Plan: The pt is a 39-year-old male with a PMH mild intermittent asthma, polysubstance use disorder on methadone, and PTSD admitted to [facility] with hospitalist consult for ECT risk stratification. ECT risk stratification Patient without previous problems with anesthesia, hx of multiple past surgeries RCRI 0 points, no further cardiac workup or treatment indicated at this time EKG showing QTc WNL, no evidence of ischemic changes Based on stated PMH, HPI, and physical exam, there are no apparent medical contraindications to the planned procedure (2) Pneumonia: Status: Acute Code(s): J18.9 - Pneumonia, unspecified organism (3) Cocaine abuse: Status: Acute Code(s): F14.10 - Cocaine abuse, uncomplicated (4) Opioid use disorder, moderate, dependence: Status: Acute Code(s): F11.20 - Opioid dependence, uncomplicated (5) PTSD (post-traumatic stress disorder): Status: Acute Code(s): F43.10 - Post-traumatic stress disorder, unspecified (6) Depressive disorder: Status: Acute Code(s): F32.A - Depression, unspecified Plan 11/07: continue outpt medications. risk strat for ECT. ECT consult. plan for ECT. T/C section 35. 3: medically low risk for ECT. case d/w brandon, suitable for ECT. continue home medications and pneumonia Tx. purusing insurance clearance for ECT. Reason for continued inpatient stay Substantial Risk for: harm to self and inability to function Time Spent With Patient Time: Total time managing care of this patient today _35___ minutes.
[2024-11-08 20:00] VITALS: BP 110/58; PULSE 64; RESP 16; TEMP 37.1; O2SAT 97
[2024-11-08] MEDS: chlorproMAZINE HCl 25 MG TABLET 125 MG PO (20:49)
[2024-11-08] MEDS: levoFLOXacin 750 MG TABLET PO (20:49)
[2024-11-08] MEDS: traZODone HCL 50 MG TABLET PO (20:49)
[2024-11-09 07:50] VITALS: BP 112/70; PULSE 70; RESP 16; TEMP 36.4; O2SAT 96
[2024-11-09] MEDS: methADONE HCl 20 MG/2 ML ORAL.CONC 140 MG PO (08:09)
[2024-11-09] MEDS: FLUoxetine HCl 20 MG CAPSULE 40 MG PO (08:29)
[2024-11-09] MEDS: Ibuprofen 800 MG TABLET PO ×2 (08:30→20:39)
[2024-11-09] MEDS: Gabapentin 300 MG CAPSULE PO ×3 (08:30→20:37)
[2024-11-09] MEDS: Nicotine Polacrilex 2 MG GUM 4 MG BUCCAL (09:48)
--- NOTE | 2024-11-09 11:09 | HO.PSYCHPN ---
Subjective Subjective Date of Service: 11/09/24 Reason For Visit: SI Subjective Notes: Conditional Voluntary Interim History: Pt slept through the night. He is in bed resting and denies any concerns. 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 He denies SI/HI. Per staff no additional concerns. Review of Systems Review of Systems Pt has no acute medical complaints at this time. Diagnostics Vital Signs (24Hr): Vital Signs - 24 hr 11/08/24 20:00 11/09/24 07:50 Temperature 98.7 F 97.6 F Pulse Rate 64 70 Respiratory Rate 16 16 Blood Pressure 110/58 L 112/70 Pulse Oximetry 97 96 Oxygen Delivery Method Room Air Room Air BMI result Body Mass Index 26.4 Medications Medications Current Medications Acetaminophen (Acetaminophen 325 Mg Tablet) 975 mg PO Q6H PRN PRN Reason: Headache/Pain, Scale 1-3 Al Hydroxide/Mg Hydroxide (Magnesium Hydrox/Alum Hydrox 30 Ml Oral.Susp) 30 ml PO Q6H PRN PRN Reason: Heartburn/Nausea Chlorpromazine HCl (Chlorpromazine Hcl 25 Mg Tablet) 125 mg PO Q4H PRN PRN Reason: anxiety Last Admin: 11/08/24 20:49 Dose: 125 mg Fluoxetine HCl (Fluoxetine Hcl 20 Mg Capsule) 40 mg PO DAILY [facility] Last Admin: 11/09/24 08:29 Dose: 40 mg Gabapentin (Gabapentin 300 Mg Capsule) 300 mg PO TID [facility] Last Admin: 11/09/24 08:30 Dose: 300 mg Hydroxyzine HCl (Hydroxyzine Hcl 25 Mg Tablet) 25 mg PO Q6H PRN PRN Reason: mild anxiety Ibuprofen (Ibuprofen 800 Mg Tablet) 800 mg PO Q8H PRN PRN Reason: Pain (Pain Scale 4-10) Last Admin: 11/09/24 08:30 Dose: 800 mg Levofloxacin (Levofloxacin 750 Mg Tablet) 750 mg PO BEDTIME [facility] Stop: 11/13/24 20:59 Last Admin: 11/08/24 20:49 Dose: 750 mg Magnesium Hydroxide (Milk Of Magnesia 30 Ml Oral.Susp) 30 ml PO DAILY PRN PRN Reason: Constipation Methadone HCl (Methadone Hcl 20 Mg/2 Ml Oral.Conc) 140 mg PO DAILY [facility] Last Admin: 11/09/24 08:09 Dose: 140 mg Nicotine Polacrilex (Nicotine Polacrilex 2 Mg Gum) 4 mg BUCCAL Q2H PRN PRN Reason: Nicotine Cravings Last Admin: 11/09/24 09:48 Dose: 4 mg Trazodone HCl (Trazodone Hcl 50 Mg Tablet) 50 mg PO BEDTIME MRX1 PRN PRN Reason: Insomnia Last Admin: 11/08/24 20:49 Dose: 50 mg Allergies Allergies Allergy/AdvReac Type Severity Reaction Status Date / Time mayonnaise [MAYONNAISE] Allergy Intermediate THROAT AND Verified 11/05/24 23:25 TONGUE ITCH quetiapine [From SEROQUEL] Allergy Intermediate DYSTONIA Verified 11/05/24 23:25 cat dander [CATS] Allergy Unknown WATERY Verified 11/05/24 23:25 EYES, SNEEZING dog dander [DOG] Allergy Unknown UNKNOWN Verified 11/05/24 23:25 paroxetine [From PAXIL] Allergy Unknown FLU LIKE Verified 11/05/24 23:25 SYMPTOMS penicillin V Allergy Unknown Unknown Verified 11/05/24 23:25 Penicillins [PENICILLINS] Allergy Unknown SWELLING Verified 11/05/24 23:25 SEAFOOD Allergy Severe DIFFICULTY Uncoded 11/05/24 23:25 BREATHING Assessment & Plan Assessment & Plan (1) MDD (major depressive disorder), recurrent episode: Status: Acute Code(s): F33.9 - Major depressive disorder, recurrent, unspecified (2) Pneumonia: Status: Acute Code(s): J18.9 - Pneumonia, unspecified organism (3) Cocaine abuse: Status: Acute Code(s): F14.10 - Cocaine abuse, uncomplicated (4) Opioid use disorder, moderate, dependence: Status: Acute Code(s): F11.20 - Opioid dependence, uncomplicated (5) PTSD (post-traumatic stress disorder): Status: Acute Code(s): F43.10 - Post-traumatic stress disorder, unspecified Plan 11/07: continue outpt medications. risk strat for ECT. ECT consult. plan for ECT. T/C section 35. 3/7: medically low risk for ECT. case d/w brandon, suitable for ECT. continue home medications and pneumonia Tx. purusing insurance clearance for ECT. 11/09 continue tx. Reason for continued inpatient stay Substantial Risk for: inability to function Time Spent With Patient Time: Total time managing care of this patient today ____ minutes.
[2024-11-09 20:00] VITALS: BP 101/59; PULSE 64; RESP 16; TEMP 36.9; O2SAT 94
[2024-11-09] MEDS: traZODone HCL 50 MG TABLET PO (20:37)
[2024-11-09] MEDS: levoFLOXacin 750 MG TABLET PO (20:37)
[2024-11-09] MEDS: chlorproMAZINE HCl 25 MG TABLET 125 MG PO (20:38)
[2024-11-10 08:00] VITALS: BP 100/49; PULSE 68; TEMP 37.2; O2SAT 95
[2024-11-10] MEDS: methADONE HCl 20 MG/2 ML ORAL.CONC 140 MG PO (08:08)
[2024-11-10] MEDS: Gabapentin 300 MG CAPSULE PO ×3 (08:33→21:06)
[2024-11-10] MEDS: FLUoxetine HCl 20 MG CAPSULE 40 MG PO (08:33)
[2024-11-10] MEDS: chlorproMAZINE HCl 25 MG TABLET 125 MG PO (08:35)
--- NOTE | 2024-11-10 09:46 | PC.NURSE ---
Pt reported elevated anxiety and requested and received PRN Thorazine. After 1 hour pt stated it was ineffective and it's putting a lot of pressure on my chest. Provider notified, O2 sats 97% HR 103. Pt denied difficulty breathing. Pt has been visible either pacing in the hallway or reading a newspaper.
[2024-11-10] MEDS: Nicotine Polacrilex 2 MG GUM 4 MG BUCCAL (10:20)
--- NOTE | 2024-11-10 11:42 | P.PNPSI_ITS ---
Subjective Subjective Date of Service: 11/10/24 Reason For Visit: SI Interim History: Pt slept through the night. He is in bed resting and denies any concerns. 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 He denies SI/HI. Per staff no additional concerns. Review of Systems Review of Systems Pt has no acute medical complaints at this time. Mental Status Exam Mental Status Exam Narrative: appropriately dressed and groomed. cooperative. PMR. speech slowed, soft, decreased in amount. reduced prosody. thoughts linear and logical. affect constricted, hypo-intense, non-labile. mood depressed. no SI/HI/AVH expressed. Diagnostics Vital Signs (24Hr): Vital Signs - 24 hr 11/09/24 20:00 11/10/24 08:00 Temperature 98.4 F 98.9 F Pulse Rate 64 68 Respiratory Rate 16 Blood Pressure 101/59 L 100/49 L Pulse Oximetry 94 95 Oxygen Delivery Method Room Air Room Air BMI result Body Mass Index 26.4 Medications Medications Current Medications Acetaminophen (Acetaminophen 325 Mg Tablet) 975 mg PO Q6H PRN PRN Reason: Headache/Pain, Scale 1-3 Al Hydroxide/Mg Hydroxide (Magnesium Hydrox/Alum Hydrox 30 Ml Oral.Susp) 30 ml PO Q6H PRN PRN Reason: Heartburn/Nausea Chlorpromazine HCl (Chlorpromazine Hcl 25 Mg Tablet) 125 mg PO Q4H PRN PRN Reason: anxiety Last Admin: 11/10/24 08:35 Dose: 125 mg Fluoxetine HCl (Fluoxetine Hcl 20 Mg Capsule) 40 mg PO DAILY [facility] Last Admin: 11/10/24 08:33 Dose: 40 mg Gabapentin (Gabapentin 300 Mg Capsule) 300 mg PO TID [facility] Last Admin: 11/10/24 08:33 Dose: 300 mg Hydroxyzine HCl (Hydroxyzine Hcl 25 Mg Tablet) 25 mg PO Q6H PRN PRN Reason: mild anxiety Ibuprofen (Ibuprofen 800 Mg Tablet) 800 mg PO Q8H PRN PRN Reason: Pain (Pain Scale 4-10) Last Admin: 11/09/24 20:39 Dose: 800 mg Levofloxacin (Levofloxacin 750 Mg Tablet) 750 mg PO BEDTIME [facility] Stop: 11/13/24 20:59 Last Admin: 11/09/24 20:37 Dose: 750 mg Magnesium Hydroxide (Milk Of Magnesia 30 Ml Oral.Susp) 30 ml PO DAILY PRN PRN Reason: Constipation Methadone HCl (Methadone Hcl 20 Mg/2 Ml Oral.Conc) 140 mg PO DAILY [facility] Last Admin: 11/10/24 08:08 Dose: 140 mg Nicotine Polacrilex (Nicotine Polacrilex 2 Mg Gum) 4 mg BUCCAL Q2H PRN PRN Reason: Nicotine Cravings Last Admin: 11/10/24 10:20 Dose: 4 mg Trazodone HCl (Trazodone Hcl 50 Mg Tablet) 50 mg PO BEDTIME MRX1 PRN PRN Reason: Insomnia Last Admin: 11/09/24 20:37 Dose: 50 mg Allergies Allergies Allergy/AdvReac Type Severity Reaction Status Date / Time mayonnaise [MAYONNAISE] Allergy Intermediate THROAT AND Verified 11/05/24 23:25 TONGUE ITCH quetiapine [From SEROQUEL] Allergy Intermediate DYSTONIA Verified 11/05/24 23:25 cat dander [CATS] Allergy Unknown WATERY Verified 11/05/24 23:25 EYES, SNEEZING dog dander [DOG] Allergy Unknown UNKNOWN Verified 11/05/24 23:25 paroxetine [From PAXIL] Allergy Unknown FLU LIKE Verified 11/05/24 23:25 SYMPTOMS penicillin V Allergy Unknown Unknown Verified 11/05/24 23:25 Penicillins [PENICILLINS] Allergy Unknown SWELLING Verified 11/05/24 23:25 SEAFOOD Allergy Severe DIFFICULTY Uncoded 11/05/24 23:25 BREATHING Assessment & Plan Assessment & Plan (1) MDD (major depressive disorder), recurrent episode: Status: Acute Code(s): F33.9 - Major depressive disorder, recurrent, unspecified (2) Pneumonia: Status: Acute Code(s): J18.9 - Pneumonia, unspecified organism (3) Cocaine abuse: Status: Acute Code(s): F14.10 - Cocaine abuse, uncomplicated (4) Opioid use disorder, moderate, dependence: Status: Acute Code(s): F11.20 - Opioid dependence, uncomplicated (5) PTSD (post-traumatic stress disorder): Status: Acute Code(s): F43.10 - Post-traumatic stress disorder, unspecified Plan 3/6: continue outpt medications. risk strat for ECT. ECT consult. plan for ECT. T/C section 35. 3/7: medically low risk for ECT. case d/w brandon, suitable for ECT. continue home medications and pneumonia Tx. purusing insurance clearance for ECT. 11/09 continue tx. 11/10 continue tx. Reason for continued inpatient stay Substantial Risk for: inability to function Time Spent With Patient Time: Total time managing care of this patient today ____ minutes.
[2024-11-10 11:53] VITALS: BP 112/75; PULSE 88; RESP 17; O2SAT 97
[2024-11-10 20:10] VITALS: BP 105/63; PULSE 69; RESP 16; TEMP 36.9; O2SAT 94
[2024-11-10] MEDS: traZODone HCL 50 MG TABLET PO (21:06)
[2024-11-10] MEDS: levoFLOXacin 750 MG TABLET PO (21:06)
[2024-11-10] MEDS: Ibuprofen 800 MG TABLET PO (21:06)
[2024-11-11] MEDS: methADONE HCl 20 MG/2 ML ORAL.CONC 140 MG PO (07:44)
[2024-11-11 07:49] VITALS: BP 109/69; PULSE 73; RESP 18; TEMP 36.4; O2SAT 97
[2024-11-11] MEDS: Ibuprofen 800 MG TABLET PO ×2 (08:17→22:51)
[2024-11-11] MEDS: FLUoxetine HCl 20 MG CAPSULE 40 MG PO (08:18)
[2024-11-11] MEDS: Gabapentin 300 MG CAPSULE PO ×2 (08:18→22:50)
[2024-11-11] MEDS: Nicotine Polacrilex 2 MG GUM 4 MG BUCCAL (08:34)
--- NOTE | 2024-11-11 12:51 | P.PNPSI_ITS ---
Subjective Subjective Date of Service: 11/11/24 Reason For Visit: SI Interim History: stable presentation, depressed and anxious. no issues over the w/e. pre staff, thorazine ineffective for anxiety. slept 8+ hours. c/o CP 2/2 PNA. Mental Status Exam Mental Status Exam Narrative: appropriately dressed and groomed. cooperative. PMR. speech slowed, soft, decreased in amount. reduced prosody. thoughts linear and logical. affect constricted, hypo-intense, non-labile. mood depressed. no SI/HI/AVH expressed. Diagnostics Vital Signs (24Hr): Vital Signs - 24 hr 11/10/24 20:10 11/11/24 07:49 Temperature 98.5 F 97.6 F Pulse Rate 69 73 Respiratory Rate 16 18 Blood Pressure 105/63 109/69 Pulse Oximetry 94 97 Oxygen Delivery Method Room Air Room Air BMI result Body Mass Index 26.4 Imaging Radiology Impressions: ITS Impressions Chest X-Ray 11/11/24 11:30 IMPRESSION: 1. Slightly smaller layering left effusion with similar left base consolidation. 2. Right lung remains clear. Electronically signed by: Jackson Clancy MD 11/11/2024 11:42 AM EDT RP Medications Medications Current Medications Acetaminophen (Acetaminophen 325 Mg Tablet) 975 mg PO Q6H PRN PRN Reason: Headache/Pain, Scale 1-3 Al Hydroxide/Mg Hydroxide (Magnesium Hydrox/Alum Hydrox 30 Ml Oral.Susp) 30 ml PO Q6H PRN PRN Reason: Heartburn/Nausea Chlorpromazine HCl 100 mg/ (Chlorpromazine HCl 25 mg) 125 mg PO Q4H PRN PRN Reason: Anxiety Last Admin: 11/10/24 21:06 Dose: 125 mg Fluoxetine HCl (Fluoxetine Hcl 20 Mg Capsule) 40 mg PO DAILY [facility] Last Admin: 11/11/24 08:18 Dose: 40 mg Gabapentin (Gabapentin 300 Mg Capsule) 300 mg PO TID [facility] Last Admin: 11/11/24 08:18 Dose: 300 mg Hydroxyzine HCl (Hydroxyzine Hcl 25 Mg Tablet) 25 mg PO Q6H PRN PRN Reason: mild anxiety Ibuprofen (Ibuprofen 800 Mg Tablet) 800 mg PO Q8H PRN PRN Reason: Pain (Pain Scale 4-10) Last Admin: 11/11/24 08:17 Dose: 800 mg Levofloxacin (Levofloxacin 750 Mg Tablet) 750 mg PO BEDTIME [facility] Stop: 11/13/24 20:59 Last Admin: 11/10/24 21:06 Dose: 750 mg Magnesium Hydroxide (Milk Of Magnesia 30 Ml Oral.Susp) 30 ml PO DAILY PRN PRN Reason: Constipation Methadone HCl (Methadone Hcl 20 Mg/2 Ml Oral.Conc) 140 mg PO DAILY [facility] Last Admin: 11/11/24 07:44 Dose: 140 mg Nicotine Polacrilex (Nicotine Polacrilex 2 Mg Gum) 4 mg BUCCAL Q2H PRN PRN Reason: Nicotine Cravings Last Admin: 11/11/24 08:34 Dose: 4 mg Trazodone HCl (Trazodone Hcl 50 Mg Tablet) 50 mg PO BEDTIME MRX1 PRN PRN Reason: Insomnia Last Admin: 11/10/24 21:06 Dose: 50 mg Allergies Allergies Allergy/AdvReac Type Severity Reaction Status Date / Time mayonnaise [MAYONNAISE] Allergy Intermediate THROAT AND Verified 11/05/24 23:25 TONGUE ITCH quetiapine [From SEROQUEL] Allergy Intermediate DYSTONIA Verified 11/05/24 23:25 cat dander [CATS] Allergy Unknown WATERY Verified 11/05/24 23:25 EYES, SNEEZING dog dander [DOG] Allergy Unknown UNKNOWN Verified 11/05/24 23:25 paroxetine [From PAXIL] Allergy Unknown FLU LIKE Verified 11/05/24 23:25 SYMPTOMS penicillin V Allergy Unknown Unknown Verified 11/05/24 23:25 Penicillins [PENICILLINS] Allergy Unknown SWELLING Verified 11/05/24 23:25 SEAFOOD Allergy Severe DIFFICULTY Uncoded 11/05/24 23:25 BREATHING Assessment & Plan Assessment & Plan (1) MDD (major depressive disorder), recurrent episode: Status: Acute Code(s): F33.9 - Major depressive disorder, recurrent, unspecified (2) Pneumonia: Status: Acute Code(s): J18.9 - Pneumonia, unspecified organism (3) Cocaine abuse: Status: Acute Code(s): F14.10 - Cocaine abuse, uncomplicated (4) Opioid use disorder, moderate, dependence: Status: Acute Code(s): F11.20 - Opioid dependence, uncomplicated (5) PTSD (post-traumatic stress disorder): Status: Acute Code(s): F43.10 - Post-traumatic stress disorder, unspecified Plan 11/07: continue outpt medications. risk strat for ECT. ECT consult. plan for ECT. T/C section 35. 11/08: medically low risk for ECT. case d/w brandon, suitable for ECT. continue home medications and pneumonia Tx. pursuing insurance clearance for ECT. 11/09 continue tx. 11/10 continue tx. 11/11: no change in presentation. reports trials on the following medications: lithium, depakote, trileptal, gabapentin, prozac, paxil, zoloft, lexapro, abilify, thorazine, haldol, remeron, trazodone, clonidine, klonopin in various doses and combinations over the years. awaiting insurance approval for ECT, may start as soon as monday. repeat CXR due to continued c/o CP 2/2 pneumonia. Reason for continued inpatient stay Substantial Risk for: harm to self, inability to function and rapid decompe nsation Time Spent With Patient Time: Total time managing care of this patient today __35__ minutes.
[2024-11-11 19:20] VITALS: BP 110/56; PULSE 76; RESP 16; TEMP 36.7; O2SAT 94
[2024-11-11] MEDS: traZODone HCL 50 MG TABLET PO (22:50)
[2024-11-11] MEDS: levoFLOXacin 750 MG TABLET PO (22:50)
[2024-11-12 08:00] VITALS: BP 125/76; PULSE 68; RESP 16; TEMP 36.8; O2SAT 98
[2024-11-12] MEDS: methADONE HCl 20 MG/2 ML ORAL.CONC 140 MG PO (08:06)
[2024-11-12] MEDS: Gabapentin 300 MG CAPSULE PO ×3 (08:44→22:06)
[2024-11-12] MEDS: FLUoxetine HCl 20 MG CAPSULE 40 MG PO (08:44)
[2024-11-12] MEDS: Nicotine Polacrilex 2 MG GUM 4 MG BUCCAL (11:17)
--- NOTE | 2024-11-12 12:28 | HO.PSYCHPN ---
Subjective Subjective Date of Service: 11/12/24 Reason For Visit: SI Interim History: anxious, irritable. leg-bouncing. CP ongoing, CXR results reviewed. awaiting word from insurance for ECT trial. per staff, c/o CP. using incentive spirometer. spending much of his time in bed, slept 8 hours, taking PRNs. Mental Status Exam Mental Status Exam Narrative: appropriately dressed and groomed. marked temporal wasting. cooperative. PMA of leg bouncing. speech nml rate, soft, decreased in amount. reduced prosody. thoughts linear and logical. affect constricted, hypo-intense, non-labile. mood anxious. no SI/HI/AVH expressed. Diagnostics Vital Signs (24Hr): Vital Signs - 24 hr 11/11/24 19:20 11/12/24 08:00 Temperature 98.0 F 98.2 F Pulse Rate 76 68 Respiratory Rate 16 16 Blood Pressure 110/56 L 125/76 Pulse Oximetry 94 98 Oxygen Delivery Method Room Air Room Air BMI result Body Mass Index 26.4 Imaging Radiology Impressions: ITS Impressions Chest X-Ray 11/11/24 11:30 IMPRESSION: 1. Slightly smaller layering left effusion with similar left base consolidation. 2. Right lung remains clear. Electronically signed by: Jackson Clancy MD 11/11/2024 11:42 AM EDT Medications Medications Current Medications Acetaminophen (Acetaminophen 325 Mg Tablet) 975 mg PO Q6H PRN PRN Reason: Headache/Pain, Scale 1-3 Al Hydroxide/Mg Hydroxide (Magnesium Hydrox/Alum Hydrox 30 Ml Oral.Susp) 30 ml PO Q6H PRN PRN Reason: Heartburn/Nausea Chlorpromazine HCl 100 mg/ (Chlorpromazine HCl 25 mg) 125 mg PO Q4H PRN PRN Reason: Anxiety Last Admin: 11/11/24 22:50 Dose: 125 mg Fluoxetine HCl (Fluoxetine Hcl 20 Mg Capsule) 40 mg PO DAILY [facility] Last Admin: 11/12/24 08:44 Dose: 40 mg Gabapentin (Gabapentin 300 Mg Capsule) 300 mg PO TID [facility] Last Admin: 11/12/24 08:44 Dose: 300 mg Hydroxyzine HCl (Hydroxyzine Hcl 25 Mg Tablet) 25 mg PO Q6H PRN PRN Reason: mild anxiety Ibuprofen (Ibuprofen 800 Mg Tablet) 800 mg PO Q8H PRN PRN Reason: Pain (Pain Scale 4-10) Last Admin: 11/11/24 22:51 Dose: 800 mg Levofloxacin (Levofloxacin 750 Mg Tablet) 750 mg PO BEDTIME [facility] Stop: 11/13/24 20:59 Last Admin: 11/11/24 22:50 Dose: 750 mg Magnesium Hydroxide (Milk Of Magnesia 30 Ml Oral.Susp) 30 ml PO DAILY PRN PRN Reason: Constipation Methadone HCl (Methadone Hcl 20 Mg/2 Ml Oral.Conc) 140 mg PO DAILY [facility] Last Admin: 11/12/24 08:06 Dose: 140 mg Nicotine Polacrilex (Nicotine Polacrilex 2 Mg Gum) 4 mg BUCCAL Q2H PRN PRN Reason: Nicotine Cravings Last Admin: 11/12/24 11:17 Dose: 4 mg Trazodone HCl (Trazodone Hcl 50 Mg Tablet) 50 mg PO BEDTIME MRX1 PRN PRN Reason: Insomnia Last Admin: 11/11/24 22:50 Dose: 50 mg Allergies Allergies Allergy/AdvReac Type Severity Reaction Status Date / Time mayonnaise [MAYONNAISE] Allergy Intermediate THROAT AND Verified 11/05/24 23:25 TONGUE ITCH quetiapine [From SEROQUEL] Allergy Intermediate DYSTONIA Verified 11/05/24 23:25 cat dander [CATS] Allergy Unknown WATERY Verified 11/05/24 23:25 EYES, SNEEZING dog dander [DOG] Allergy Unknown UNKNOWN Verified 11/05/24 23:25 paroxetine [From PAXIL] Allergy Unknown FLU LIKE Verified 11/05/24 23:25 SYMPTOMS penicillin V Allergy Unknown Unknown Verified 11/05/24 23:25 Penicillins [PENICILLINS] Allergy Unknown SWELLING Verified 11/05/24 23:25 SEAFOOD Allergy Severe DIFFICULTY Uncoded 11/05/24 23:25 BREATHING Assessment & Plan Assessment & Plan (1) MDD (major depressive disorder), recurrent episode: Status: Acute Code(s): F33.9 - Major depressive disorder, recurrent, unspecified (2) Pneumonia: Status: Acute Code(s): J18.9 - Pneumonia, unspecified organism (3) Cocaine abuse: Status: Acute Code(s): F14.10 - Cocaine abuse, uncomplicated (4) Opioid use disorder, moderate, dependence: Status: Acute Code(s): F11.20 - Opioid dependence, uncomplicated (5) PTSD (post-traumatic stress disorder): Status: Acute Code(s): F43.10 - Post-traumatic stress disorder, unspecified Plan 11/07: continue outpt medications. risk strat for ECT. ECT consult. plan for ECT. T/C section 35. 11/08: medically low risk for ECT. case d/w brandon, suitable for ECT. continue home medications and pneumonia Tx. pursuing insurance clearance for ECT. 11/09 continue tx. 11/10 continue tx. 11/11: no change in presentation. reports trials on the following medications: lithium, depakote, trileptal, gabapentin, prozac, paxil, zoloft, lexapro, abilify, thorazine, haldol, remeron, trazodone, clonidine, klonopin in various doses and combinations over the years. awaiting insurance approval for ECT, may start as soon as monday. repeat CXR due to continued c/o CP 2/2 pneumonia. 11/12: per repeat CXR, pleural effusion shrinking. CP remains. using incentive spirometer. PMA, temporal wasting, very anxious today with panic attacks per report. awaiting word from insurance re ECT. continue current mgmt otherwise. Reason for continued inpatient stay Substantial Risk for: harm to self, inability to function and rapid decompensation Time Spent With Patient Time: Total time managing care of this patient today __25__ minutes.
[2024-11-12 20:00] VITALS: BP 114/75; PULSE 72; RESP 16; TEMP 36.3; O2SAT 96
[2024-11-12] MEDS: traZODone HCL 50 MG TABLET PO (22:06)
[2024-11-12] MEDS: levoFLOXacin 750 MG TABLET PO (22:06)
[2024-11-13] VITALS (10 sets, daily range): BP systolic 96–121; BP diastolic 52–77; PULSE 61–92; RESP 12–18; TEMP 36.2–36.6; O2SAT 93–98; BMI 26.5
--- NOTE | 2024-11-13 | ECG_ITS ---
Test Reason : BIGEMINY ECTOPY Blood Pressure : */* mmHG Vent. Rate : 63 BPM Atrial Rate : 63 BPM P-R Int : 156 ms QRS Dur : 86 ms QT Int : 434 ms P-R-T Axes : 54 37 52 degrees QTcB Int : 444 ms Normal sinus rhythm Normal ECG When compared with ECG of 07-Nov-2024 21:30, No significant change was found Referred By: Jared Bishop Electronically Signed By: JATINDER WILKS
--- NOTE | 2024-11-13 06:46 | HO.ANESPROP2 ---
[facility] Active Problems Active Problems: All Active Problems (Updated 11/10/24 @ 10:37 by Suzy Harvey NP) MDD (major depressive disorder), recurrent episode (Acute) Depressive disorder (Acute) Pre-op evaluation (Acute) Pneumonia (Acute) Suicidal ideation (Acute) Depression with suicidal ideation (Acute) Traumatic hematoma of lower leg (Acute) Polysubstance (including opioids) dependence, daily use (Acute) Cocaine abuse (Acute) Substance induced mood disorder (Acute) Moderate benzodiazepine use disorder (Acute) Opioid use disorder, moderate, dependence (Acute) Asthma (Acute) Pulmonary nodules (Acute) PTSD (post-traumatic stress disorder) (Acute) Past Medical History Medical History (Updated 11/10/24 @ 10:37 by Suzy Harvey NP) MDD (major depressive disorder), recurrent episode Fentanyl use disorder, severe Benzodiazepine abuse Cellulitis Depression Polysubstance abuse Knee cartilage, torn, right ACL (anterior cruciate ligament) rupture Asthma Hepatitis C Hepatitis C antibody positive in blood Family History Family history of problems with anesthesia: No Surgical History History of Problems with Anesthesia: No Social History Social History Household Members: None Household Members Other:: brother Housing: Homeless Do you presently have visiting nurse or other home services: No Unable to assess alcohol history related to: Unknown Alcohol intake: former Comment: pt on 5 min safety checks Patient Tobacco Use Status: Former Tobacco user Tobacco use type: Cigarette Cigarette Packs Per Day: 10 Cigarettes Per Day: 10 Years Smoked: 10 Smoked in Last 30 Days: Yes e-Cigarette/Vaping Use: Currently Using Patient Interested in Nicotine Replacement: Yes Second Hand Smoke Exposure: No Use of substances other than those prescribed or required for medical reasons: Yes Substance Use Type: Other Substance Use Type Other:: fentanyl Substance Use Frequency: Occasionally Last Used Substance: Just Prior to Admission Currently Displaying Signs/Symptoms of Drug Intoxication Withdrawal: No Any prior treatment program specific to substance use: Yes (methadone clinic) Have you been hit, kicked, punched, or otherwise hurt by someone within the past year? If so, by whom?: No Do you feel safe in your current relationship?: No Current Relationship Is there a partner from a previous relationship who is making you feel unsafe now?: No Are you made to feel afraid or neglected: No [facility] Healthcare Practices: mandaeism Advance Directives: No Advance Directives Information Provided: Yes Do you have thoughts of harming others: None Do you have a plan to hurt others: No Plan Recently lost weight without trying: No Eating poorly because of decreased appetite: No Nutrition Risks: No Nutritional Risk Poor oral hygiene: No service: No Sexual orientation: Straight/Heterosexual Meds Allergies Allergy/AdvReac Type Severity Reaction Status Date / Time mayonnaise [MAYONNAISE] Allergy Intermediate THROAT AND Verified 11/05/24 23:25 TONGUE ITCH quetiapine [From SEROQUEL] Allergy Intermediate DYSTONIA Verified 11/05/24 23:25 cat dander [CATS] Allergy Unknown WATERY Verified 11/05/24 23:25 EYES, SNEEZING dog dander [DOG] Allergy Unknown UNKNOWN Verified 11/05/24 23:25 paroxetine [From PAXIL] Allergy Unknown FLU LIKE Verified 11/05/24 23:25 SYMPTOMS penicillin V Allergy Unknown Unknown Verified 11/05/24 23:25 Penicillins [PENICILLINS] Allergy Unknown SWELLING Verified 11/05/24 23:25 SEAFOOD Allergy Severe DIFFICULTY Uncoded 11/05/24 23:25 BREATHING Active Medications: Current Medications Acetaminophen (Acetaminophen 325 Mg Tablet) 975 mg PO Q6H PRN PRN Reason: Headache/Pain, Scale 1-3 Al Hydroxide/Mg Hydroxide (Magnesium Hydrox/Alum Hydrox 30 Ml Oral.Susp) 30 ml PO Q6H PRN PRN Reason: Heartburn/Nausea Chlorpromazine HCl 100 mg/ (Chlorpromazine HCl 25 mg) 125 mg PO Q4H PRN PRN Reason: Anxiety Last Admin: 11/11/24 22:50 Dose: 125 mg Fluoxetine HCl (Fluoxetine Hcl 20 Mg Capsule) 40 mg PO DAILY [facility] Last Admin: 11/12/24 08:44 Dose: 40 mg Gabapentin (Gabapentin 300 Mg Capsule) 300 mg PO TID [facility] Last Admin: 11/12/24 22:06 Dose: 300 mg Hydroxyzine HCl (Hydroxyzine Hcl 25 Mg Tablet) 25 mg PO Q6H PRN PRN Reason: mild anxiety Ibuprofen (Ibuprofen 800 Mg Tablet) 800 mg PO Q8H PRN PRN Reason: Pain (Pain Scale 4-10) Last Admin: 11/11/24 22:51 Dose: 800 mg Levofloxacin (Levofloxacin 750 Mg Tablet) 750 mg PO BEDTIME [facility] Stop: 11/13/24 20:59 Last Admin: 11/12/24 22:06 Dose: 750 mg Magnesium Hydroxide (Milk Of Magnesia 30 Ml Oral.Susp) 30 ml PO DAILY PRN PRN Reason: Constipation Methadone HCl (Methadone Hcl 20 Mg/2 Ml Oral.Conc) 140 mg PO DAILY [facility] Last Admin: 11/12/24 08:06 Dose: 140 mg Nicotine Polacrilex (Nicotine Polacrilex 2 Mg Gum) 4 mg BUCCAL Q2H PRN PRN Reason: Nicotine Cravings Last Admin: 11/12/24 11:17 Dose: 4 mg Trazodone HCl (Trazodone Hcl 50 Mg Tablet) 50 mg PO BEDTIME MRX1 PRN PRN Reason: Insomnia Last Admin: 11/12/24 22:06 Dose: 50 mg Home Medications ?Medication ?Instructions ?Recorded ?Confirmed ?Last Taken ?Type methadone 10 mg/mL oral 140 mg PO DAILY 11/06/24 11/06/24 11/05/24 08:00 History concentrate (Methadose) Exam Height,Weight and Vital Signs: Height 5 ft 10 in Weight 83.915 kg Last Vital Signs Temp 97.1 F 11/13/24 06:27 Pulse 64 11/13/24 06:27 Resp 18 11/13/24 06:27 BP 107/70 11/13/24 06:27 Pulse Ox 96 11/13/24 06:27 O2 Del Method Room Air 11/13/24 06:27 Pertinent Lab Results Pertinent Lab Results: Laboratory Tests 11/06/24 00:51 Urine Opiates Screen POSITIVE H Ur Buprenorphine Scrn Not Detected Ur Oxycodone Screen Not Detected Urine Methadone Screen Positive H Urine Fentanyl Screen POSITIVE H Ur Barbiturates Screen Not Detected Ur Phencyclidine Scrn Not Detected Ur Amphetamines Screen Not Detected U Benzodiazepines Scrn Not Detected Urine Cocaine Screen POSITIVE H U Marijuana (THC) Screen Not Detected Ethyl Alcohol < 10 Airway Mallampati Class: II TM Dist: >3cm Neck ROM: Full Heart: rrr Lungs: cta Assessment and Plan Assessment Anesthesia Assessment: Anesthesia Plan Discussed and Chart Reviewed Final Anesthetic Review Family History of Problems with Anesthesia: No History of Problems with Anesthesia: No NPO: Yes ASA Class: III Final Preanesthetic Review: No Changes in Pt Med Stat, Meds/Allgs Chart Reviewed and Consent Obtained/Reviewed Patient Risk: Intermediate Procedure Risk: Intermediate Anesthetic Plan Anesthetic Plan: GA Disposition: Standard PACU
--- NOTE | 2024-11-13 07:39 | MHC.SHP ---
Pre-Procedural Eval Section A - 24 Hr Update-Section A only Date of Service: 11/13/24 The patient is an INPATIENT: Yes Changes since office visit: Yes Cold of Flu in the past 2 weeks, Yes New Medical Problems, Yes Changes in Medication and Yes Patient answered all questions The patient has been examined within 24 hours of the surgical procedure. The History & Physical has been completed within 30 days and I have reviewed it.: Yes Section B - Complete if H&P > 30 days Chief Complaint: SI Allergies: Allergies Allergy/AdvReac Type Severity Reaction Status Date / Time mayonnaise [MAYONNAISE] Allergy Intermediate THROAT AND Verified 11/05/24 23:25 TONGUE ITCH quetiapine [From SEROQUEL] Allergy Intermediate DYSTONIA Verified 11/05/24 23:25 cat dander [CATS] Allergy Unknown WATERY Verified 11/05/24 23:25 EYES, SNEEZING dog dander [DOG] Allergy Unknown UNKNOWN Verified 11/05/24 23:25 paroxetine [From PAXIL] Allergy Unknown FLU LIKE Verified 11/05/24 23:25 SYMPTOMS penicillin V Allergy Unknown Unknown Verified 11/05/24 23:25 Penicillins [PENICILLINS] Allergy Unknown SWELLING Verified 11/05/24 23:25 SEAFOOD Allergy Severe DIFFICULTY Uncoded 11/05/24 23:25 BREATHING Plan I have reviewed the history and physical and performed a pertinent physical examination on my patient. No changes have occurred unless specified. Time Spent With Patient Time: Total time managing care of this patient today ____ minutes.
--- NOTE | 2024-11-13 08:55 | HO.ECTPROC ---
ECT Procedure Note Diagnosis/Treatment Date of Service: 11/13/24 Diagnosis: Major Depressive Disorder Current Treatment Number: 1 Treatment: Series Interval Clinical Notes: Pt s/p pnneumonia hx chronic dep sub abuse ect completed had ect related bigeminy brief vtach 3 sec otherwise tolerated procedure cognitively and oxygenation. Anesthesia recommends crdac consult ck electrolytes consider dec methadone any meds that may be arrymogenic Perhaps try no zofran next tx case discussed with anesthesia and dr garrett Time: Total time managing care of this patient today __40__ minutes. ECT Settings Device: THYMATRON DGx Electrode Placement: Right Unilateral Program/Pulse Width: 0.50 Energy Percent: 100 Seizure Duration By EEG (in seconds): 56 Medications Administration General Anesthetic: Etomidate (16) Muscle Relaxant: Succinylcholine (100) Ancillary Medications Analgesics: Torodol - Pre ECT (15) Anti-emetics: Zofran - Pre ECT Airway Management Airway Management: Bag Mask Ventilation
[2024-11-13] MEDS: methADONE HCl 20 MG/2 ML ORAL.CONC 140 MG PO (08:57)
[2024-11-13] MEDS: Gabapentin 300 MG CAPSULE PO ×3 (08:58→21:08)
[2024-11-13] MEDS: FLUoxetine HCl 20 MG CAPSULE 40 MG PO (08:58)
[2024-11-13 10:41] LABS: Anion Gap 12 (12-20); Carbon Dioxide 27 mmol/L (22-29); Chloride 105 mmol/L (96-108); Potassium 4.3 mmol/L (3.3-5.1); Sodium 140 mmol/L (135-145)
[2024-11-13 12:10] LABS: Magnesium 2.1 mg/dL (1.6-2.6)
--- NOTE | 2024-11-13 12:50 | P.PNPSI_ITS ---
Subjective Subjective Date of Service: 11/13/24 Reason For Visit: SI Interim History: calm, cooperative. reports AGUIRRE and confusion for a brief period after ECT this morning. c/o anxiety, asking for klonopin, which was declined as anti-Sz and muddying the alvarado in terms of what is effective for his mental illness. pt accepted this response. agreed to increased dosing of thorazine PRNs. ECT education provided. per staff, blunted, withdrawn. no SI/HI. appeared to have slept overnight. Mental Status Exam Mental Status Exam Narrative: appropriately dressed and groomed. marked temporal wasting. cooperative. no PMA/PMR. speech nml rate, soft, decreased in amount. reduced prosody. thoughts linear and logical. affect constricted, hypo-intense, non-labile. mood anxious. no SI/HI/AVH expressed. Diagnostics Vital Signs (24Hr): Vital Signs - 24 hr 11/12/24 20:00 11/13/24 00:42 11/13/24 06:27 Temperature 97.4 F 97.5 F 97.1 F Pulse Rate 72 61 64 Respiratory Rate 16 16 18 Blood Pressure 114/75 118/72 107/70 Pulse Oximetry 96 97 96 Oxygen Delivery Method Room Air Room Air Oxygen Flow Rate 11/13/24 08:06 11/13/24 08:10 11/13/24 08:15 Temperature 98 F Pulse Rate 82 79 80 Respiratory Rate 12 12 12 Blood Pressure 116/74 109/70 97/63 Pulse Oximetry 96 96 96 Oxygen Delivery Method Nasal Cannula with ETCO2 Nasal Cannula with ETCO2 Nasal Cannula with ETCO2 Oxygen Flow Rate 2 2 2 11/13/24 08:20 11/13/24 08:35 11/13/24 08:49 Temperature 97.8 F 98 F Pulse Rate 82 80 92 Respiratory Rate 12 14 16 Blood Pressure 96/61 115/72 121/77 Pulse Oximetry 96 97 98 Oxygen Delivery Method Nasal Cannula with ETCO2 Room Air Room Air Oxygen Flow Rate 2 11/13/24 09:05 Temperature 98 F Pulse Rate 92 Respiratory Rate 16 Blood Pressure 121/77 Pulse Oximetry Oxygen Delivery Method Oxygen Flow Rate BMI result Body Mass Index 26.5 Labs 11/13/24 09:59 Labs: Laboratory Results - last 48 hr 11/13/24 09:59 Sodium 140 Potassium 4.3 Chloride 105 Carbon Dioxide 27 Anion Gap 12 Magnesium 2.1 Imaging Radiology Impressions: ITS Impressions Chest X-Ray 11/11/24 11:30 IMPRESSION: 1. Slightly smaller layering left effusion with similar left base consolidation. 2. Right lung remains clear. Electronically signed by: Jackson Clancy MD 11/11/2024 11:42 AM EDT RP Medications Medications Current Medications Acetaminophen (Acetaminophen 325 Mg Tablet) 975 mg PO Q6H PRN PRN Reason: Headache/Pain, Scale 1-3 Al Hydroxide/Mg Hydroxide (Magnesium Hydrox/Alum Hydrox 30 Ml Oral.Susp) 30 ml PO Q6H PRN PRN Reason: Heartburn/Nausea Chlorpromazine HCl (Chlorpromazine Hcl 100 Mg Tablet) 200 mg PO Q4H PRN PRN Reason: Anxiety Fluoxetine HCl (Fluoxetine Hcl 20 Mg Capsule) 40 mg PO DAILY [facility] Last Admin: 11/13/24 08:58 Dose: 40 mg Gabapentin (Gabapentin 300 Mg Capsule) 300 mg PO TID [facility] Last Admin: 11/13/24 08:58 Dose: 300 mg Hydroxyzine HCl (Hydroxyzine Hcl 25 Mg Tablet) 25 mg PO Q6H PRN PRN Reason: mild anxiety Ibuprofen (Ibuprofen 800 Mg Tablet) 800 mg PO Q8H PRN PRN Reason: Pain (Pain Scale 4-10) Last Admin: 11/11/24 22:51 Dose: 800 mg Levofloxacin (Levofloxacin 750 Mg Tablet) 750 mg PO BEDTIME [facility] Stop: 11/13/24 20:59 Last Admin: 11/12/24 22:06 Dose: 750 mg Magnesium Hydroxide (Milk Of Magnesia 30 Ml Oral.Susp) 30 ml PO DAILY PRN PRN Reason: Constipation Methadone HCl (Methadone Hcl 20 Mg/2 Ml Oral.Conc) 140 mg PO DAILY [facility] Last Admin: 11/13/24 08:57 Dose: 140 mg Naloxone HCl (Naloxone Hcl 0.4 Mg/Ml Vial) 0.04 mg IVPUSH Q5M PRN PRN Reason: Excessive sedation or RR < 8 Nicotine Polacrilex (Nicotine Polacrilex 2 Mg Gum) 4 mg BUCCAL Q2H PRN PRN Reason: Nicotine Cravings Last Admin: 11/12/24 11:17 Dose: 4 mg Allergies Allergies Allergy/AdvReac Type Severity Reaction Status Date / Time mayonnaise [MAYONNAISE] Allergy Intermediate THROAT AND Verified 11/05/24 23:25 TONGUE ITCH quetiapine [From SEROQUEL] Allergy Intermediate DYSTONIA Verified 11/05/24 23:25 cat dander [CATS] Allergy Unknown WATERY Verified 11/05/24 23:25 EYES, SNEEZING dog dander [DOG] Allergy Unknown UNKNOWN Verified 11/05/24 23:25 paroxetine [From PAXIL] Allergy Unknown FLU LIKE Verified 11/05/24 23:25 SYMPTOMS penicillin V Allergy Unknown Unknown Verified 11/05/24 23:25 Penicillins [PENICILLINS] Allergy Unknown SWELLING Verified 11/05/24 23:25 SEAFOOD Allergy Severe DIFFICULTY Uncoded 11/05/24 23:25 BREATHING Assessment & Plan Assessment & Plan (1) MDD (major depressive disorder), recurrent episode: Status: Acute Code(s): F33.9 - Major depressive disorder, recurrent, unspecified (2) Pneumonia: Status: Acute Code(s): J18.9 - Pneumonia, unspecified organism (3) Cocaine abuse: Status: Acute Code(s): F14.10 - Cocaine abuse, uncomplicated (4) Opioid use disorder, moderate, dependence: Status: Acute Code(s): F11.20 - Opioid dependence, uncomplicated (5) PTSD (post-traumatic stress disorder): Status: Acute Code(s): F43.10 - Post-traumatic stress disorder, unspecified Plan 11/07: continue outpt medications. risk strat for ECT. ECT consult. plan for ECT. T/C section 35. 3/7: medically low risk for ECT. case d/w brandon, suitable for ECT. continue home medications and pneumonia Tx. pursuing insurance clearance for ECT. 11/09 continue tx. 11/10 continue tx. 11/11: no change in presentation. reports trials on the following medications: lithium, depakote, trileptal, gabapentin, prozac, paxil, zoloft, lexapro, abilify, thorazine, haldol, remeron, trazodone, clonidine, klonopin in various doses and combinations over the years. awaiting insurance approval for ECT, may start as soon as monday. repeat CXR due to continued c/o CP 2/2 pneumonia. 11/12: per repeat CXR, pleural effusion shrinking. CP remains. using incentive spirometer. PMA, temporal wasting, very anxious today with panic attacks per report. awaiting word from insurance re ECT. continue current mgmt otherwise. 11/13: approved for ECT, ECT #1 completed thismorning without incident. c/o anxiety, increase thorazine PRNs from 125 mg each to 200 mg each. HOLD gabapentin nights prior to ECT and mornings of. otherwise continue current mgmt. Reason for continued inpatient stay Substantial Risk for: harm to self, inability to function and rapid decompensation Time Spent With Patient Time: Total time managing care of this patient today __25__ minutes.
[2024-11-13] MEDS: chlorproMAZINE HCl 100 MG TABLET 200 MG PO ×2 (14:35→21:08)
[2024-11-13] MEDS: traZODone HCL 50 MG TABLET PO (21:07)
[2024-11-14 07:30] VITALS: BP 98/60; PULSE 69; RESP 14; TEMP 36.5; O2SAT 95
[2024-11-14] MEDS: methADONE HCl 20 MG/2 ML ORAL.CONC 140 MG PO (07:50)
[2024-11-14] MEDS: Gabapentin 300 MG CAPSULE PO (08:09)
[2024-11-14] MEDS: Ibuprofen 800 MG TABLET PO ×2 (08:09→20:41)
[2024-11-14] MEDS: FLUoxetine HCl 20 MG CAPSULE 40 MG PO (08:09)
[2024-11-14] MEDS: chlorproMAZINE HCl 100 MG TABLET 200 MG PO ×2 (08:37→20:41)
--- NOTE | 2024-11-14 08:52 | CA_ITS ---
Transthoracic Echocardiogram Patient (Last, First, Middle): Ridge Saenz J Gender: Male Date of : 1985 Age: 39 Procedure Date: 11/14/2024 Procedure Type: Transthoracic Echocardiogram Location: S3W Height: 203.2 cm Weight: 83.92 kg BSA: 2.22 m2 Heart Rate: 93 bpm BP: 98 / 60 mmHg Magnetic Grinder Operator: SB Referring MD: Raymond Greene MD Symptoms: PVC Study Quality: Adequate ECG Rhythm: Sinus Conclusions: - The left ventricular systolic function is low normal. The calculated ejection fraction is 54% by biplane method. - No obvious valvular pathology seen on this study. Findings Left Ventricle Normal left ventricular cavity size. There is normal left ventricular wall thickness. The left ventricular systolic function is low normal. The calculated ejection fraction is 54% by biplane method. There is no evidence of regional wall motion abnormalities. Diastolic function is normal for age. Right Ventricle Normal right ventricular cavity size. There is mildly decreased right ventricular systolic function. Atria Both atria are normal in size. Aortic Valve There is a normal trileaflet aortic valve. There is no aortic valve stenosis. There is no aortic valve regurgitation. Mitral Valve The mitral valve appears normal. There is trace mitral valve regurgitation. There is no mitral valve stenosis. Pulmonic Valve The pulmonic valve is likely normal. Tricuspid Valve Normal tricuspid valve structure. There is trace tricuspid valve regurgitation. There is no evidence of pulmonary hypertension. Great Vessels The asc aorta is normal in size. Venous The inferior vena cava is normal in size and collapses greater than 50% with inspiration. Pericardium/Pleural There is no evidence of pericardial effusion. Prior Study Comparison No prior study available for comparison. Recommendations, Care & Conclusions No obvious valvular pathology seen on this study. Measurements 2D Linear Measurements IVSd: 0.80 0.6-0.9/0.6-1.0 cm LVIDd: 4.52 3.9-5.3/4.2-5.9 cm LVIDd Index: 2.04 2.4-3.2/2.2-3.1 cm/m2 LVIDs: 2.47 2.0-3.6 cm LVPWd: 0.65 0.7-1.1 cm Ao Root: 3.50 2.1-3.5 cm LA Diam: 3.30 2.7-3.8/3.0-4.0 cm LAIDs Index: 1.49 1.5-2.3 cm/m2 LV Mass: 125.25 67-162/88-224 g LV Mass Index: 56.42 43-95/49-115 g/m2 LVOT Diam: 2.30 3.0+(-)1.3 cm 2D Systolic Function EF 4C: 55.20 >55% EF 2C: 53.40 >55% EF BiP: 53.90 >55% Mitral Valve MV Pk E: 0.51 MV PK A: 0.71 MV Decel Time: 206.00 E/A: 0.70 E'Lateral: 12.10 E'Medial: 6.74 E/E' Med: 7.60 E/E' Lat: 4.20 PHT: 60.00 MVA PHT: 3.67 Decel [place]: 2.50 Aortic Valve AoV Pk Bowen: 1.13 AoV Pk Grad: 5.00 DELBERT: 3.20 LVOT LVOT Pk Bowen: 0.87 LVOT Mn Bowen: 0.60 LVOT VTI: 0.15 LVOT Pk Grad: 3.00 LVOT Mn Grad: 2.00 LVOT Diam: 2.30 LVOT Area: 4.15 Diastolic Function MV Pk E: 0.51 MV Pk A: 0.71 E/A: 0.70 E'Medial: 6.74 E/E' Med: 7.60 E' Laterial: 12.10 E/E' Lat: 4.20 Right Ventricle TAPSE (mm): 14.30 TVS' Bowen: 9.14 Tricuspid Valve TR Pk Bowen: 1.97 TR Pk Grad: 16.00 RA Press: 3.00 RVSP: 19.00 Great Vessels Aorta Ao Root-2D: 3.50 2.0-3.7 cm Sinus of Valsalva: 3.50 2.0-3.5 cm Ao Asc: 3.00 2.1-3.4 cm Pulmonary Valve PV Pk Bowen: 0.87 Peak PV Grad: 3.00 Updated in Other Vendor System with Status of Final Raymond Greene MD electronically signed on 11/14/2024 11:27:27 AM with status of Final
--- NOTE | 2024-11-14 09:16 | PM.CNCAR ---
History of Present Illness History of Present Illness Date of Service: 11/14/24 Chief complaint: SI Narrative: This is a cardiology consultation regarding PVCs. Patient apparently needs ECT therapy for major depression. He underwent the procedure yesterday and in this context, was noted to have PVCs. Per message from Anesthesiology, he had PVCs, short run of bigeminy and very short run of NSVT around 7-8 beats. However, in the stored strips, currently see PVCs and one couplet. Patient himself denies any prior cardiac history. No history of any coronary disease or myocardial infarction or cardiomyopathy or in fact any other cardiac issues. History of substance abuse. He was positive for cocaine and fentanyl upon arrival. He denies any cardiac symptoms. Unlimited exercise tolerance at baseline. Review of Systems Review of Systems: Yes all other systems are reviewed and are negative Constitutional: Constitutional: Reports as per HPI and Reports no additional constitutional complaints Eyes: Eyes: Reports as per HPI and Denies no additional eye complaints ENT: Denies system reviewed and no additional complaints, except as documented and Reports as per HPI Cardiovascular: Cardiovascular: Reports as per HPI, Reports no additional cardiovascular complaints, Denies acrocyanosis, Denies cool extremities, Denies chest pain, Denies leg edema, Denies lightheadedness, Denies palpitations and Denies dyspnea Respiratory: Respiratory: Reports as per HPI, Denies no additional respiratory complaints and Denies dyspnea Gastrointestinal: Gastrointestinal: Reports as per HPI and Denies no additional gastrointestinal complaints Genitourinary: Genitourinary: Reports no additional male genitourinary complaints and Reports as per HPI Musculoskeletal: Musculoskeletal: Reports no additional musculoskeletal complaints and Reports as per HPI Integumentary/Breasts: Skin/Breast: Reports system reviewed and no additional complaints, except as docu Neurologic: Reports system reviewed and no additional complaints, except as documented and Reports as per HPI Psychiatric: Psychiatric: Reports no additional psychiatric complaints and Reports as per HPI Endocrine: Endocrine: Reports no additional endocrine complaints, Reports as per HPI and Denies palpitations Hematologic/Lymphatic: Hematologic/Lymphatic: Reports no additional hematologic/lymphatic complaints and Reports as per HPI Allergic/Immunologic: Allergic/Immunologic: Reports no additional allergic/immunologic complaints and Reports as per HPI [facility] Past Medical History Medical History (Updated 11/14/24 @ 09:23 by Raymond Greene MD) MDD (major depressive disorder), recurrent episode Fentanyl use disorder, severe Benzodiazepine abuse Cellulitis Depression Polysubstance abuse Knee cartilage, torn, right ACL (anterior cruciate ligament) rupture Asthma Hepatitis C Hepatitis C antibody positive in blood Family History Family History Father No problems noted. Mother No problems noted. Social History Social History Household Members: None Household Members Other:: brother Housing: Homeless Do you presently have visiting nurse or other home services: No Unable to assess alcohol history related to: Unknown Alcohol intake: former Comment: pt on 5 min safety checks Patient Tobacco Use Status: Former Tobacco user Tobacco use type: Cigarette Cigarette Packs Per Day: 10 Cigarettes Per Day: 10 Years Smoked: 10 Smoked in Last 30 Days: Yes e-Cigarette/Vaping Use: Currently Using Patient Interested in Nicotine Replacement: Yes Second Hand Smoke Exposure: No Use of substances other than those prescribed or required for medical reasons: Yes Substance Use Type: Other Substance Use Type Other:: fentanyl Substance Use Frequency: Occasionally Last Used Substance: Just Prior to Admission Currently Displaying Signs/Symptoms of Drug Intoxication Withdrawal: No Any prior treatment program specific to substance use: Yes (methadone clinic) Have you been hit, kicked, punched, or otherwise hurt by someone within the past year? If so, by whom?: No Do you feel safe in your current relationship?: No Current Relationship Is there a partner from a previous relationship who is making you feel unsafe now?: No Are you made to feel afraid or neglected: No Bahai Healthcare Practices: amish Advance Directives: No Advance Directives Information Provided: Yes Do you have thoughts of harming others: None Do you have a plan to hurt others: No Plan Recently lost weight without trying: No Eating poorly because of decreased appetite: No Nutrition Risks: No Nutritional Risk Poor oral hygiene: No service: No Sexual orientation: Straight/Heterosexual Meds Allergies Allergy/AdvReac Type Severity Reaction Status Date / Time mayonnaise [MAYONNAISE] Allergy Intermediate THROAT AND Verified 11/05/24 23:25 TONGUE ITCH quetiapine [From SEROQUEL] Allergy Intermediate DYSTONIA Verified 11/05/24 23:25 cat dander [CATS] Allergy Unknown WATERY Verified 11/05/24 23:25 EYES, SNEEZING dog dander [DOG] Allergy Unknown UNKNOWN Verified 11/05/24 23:25 paroxetine [From PAXIL] Allergy Unknown FLU LIKE Verified 11/05/24 23:25 SYMPTOMS penicillin V Allergy Unknown Unknown Verified 11/05/24 23:25 Penicillins [PENICILLINS] Allergy Unknown SWELLING Verified 11/05/24 23:25 SEAFOOD Allergy Severe DIFFICULTY Uncoded 11/05/24 23:25 BREATHING Active Medications: Current Medications Acetaminophen (Acetaminophen 325 Mg Tablet) 975 mg PO Q6H PRN PRN Reason: Headache/Pain, Scale 1-3 Al Hydroxide/Mg Hydroxide (Magnesium Hydrox/Alum Hydrox 30 Ml Oral.Susp) 30 ml PO Q6H PRN PRN Reason: Heartburn/Nausea Chlorpromazine HCl (Chlorpromazine Hcl 100 Mg Tablet) 200 mg PO Q4H PRN PRN Reason: Anxiety Last Admin: 11/14/24 08:37 Dose: 200 mg Fluoxetine HCl (Fluoxetine Hcl 20 Mg Capsule) 40 mg PO DAILY [facility] Last Admin: 11/14/24 08:09 Dose: 40 mg Gabapentin (Gabapentin 300 Mg Capsule) 300 mg PO TID [facility] Last Admin: 11/14/24 08:09 Dose: 300 mg Hydroxyzine HCl (Hydroxyzine Hcl 25 Mg Tablet) 25 mg PO Q6H PRN PRN Reason: mild anxiety Ibuprofen (Ibuprofen 800 Mg Tablet) 800 mg PO Q8H PRN PRN Reason: Pain (Pain Scale 4-10) Last Admin: 11/14/24 08:09 Dose: 800 mg Magnesium Hydroxide (Milk Of Magnesia 30 Ml Oral.Susp) 30 ml PO DAILY PRN PRN Reason: Constipation Methadone HCl (Methadone Hcl 20 Mg/2 Ml Oral.Conc) 140 mg PO DAILY [facility] Last Admin: 11/14/24 07:50 Dose: 140 mg Naloxone HCl (Naloxone Hcl 0.4 Mg/Ml Vial) 0.04 mg IVPUSH Q5M PRN PRN Reason: Excessive sedation or RR < 8 Nicotine Polacrilex (Nicotine Polacrilex 2 Mg Gum) 4 mg BUCCAL Q2H PRN PRN Reason: Nicotine Cravings Last Admin: 11/12/24 11:17 Dose: 4 mg Home Medications ?Medication ?Instructions ?Recorded ?Confirmed ?Last Taken ?Type methadone 10 mg/mL oral 140 mg PO DAILY 11/06/24 11/06/2425 08:00 History concentrate (Methadose) Physical Exam Vital Signs: Vital Signs: Last Vital Signs Temp 97.7 F 11/14/24 07:30 Pulse 69 11/14/24 07:30 Resp 14 11/14/24 07:30 BP 98/60 11/14/24 07:30 Pulse Ox 95 11/14/24 07:30 O2 Del Method Room Air 11/14/24 07:30 O2 Flow Rate 2 11/13/24 08:20 BMI result Body Mass Index 26.5 Const: General: comfortable and no acute distress Orientation/consciousness: patient oriented x3 HEENT: Other: Unremarkable Head: Yes normal to inspection Neck: Neck: Yes normal visual inspection Chest: Chest palpation & inspection: normal inspection of the chest Resp: Auscultation: clear to auscultation bilaterally Cardio: Palpation: normal PMI Heart sounds: S1 normal heart sound present, S2 normal heart sound present, no gallops, no murmurs and no rubs GI: Palpation (GI): Soft to palpation Back/Spine/Pelvis: Other: unremarkable Skin: General skin exam: no rashes or lesions noted Neuro: General: patient oriented x3 Extrem: General: Yes normal to inspection Psych: Mental Status: mental status grossly normal Objective Labs and Meds 11/13/24 09:59 Lab results: Laboratory Results - last 24 hr 11/13/24 09:59 Sodium 140 Potassium 4.3 Chloride 105 Carbon Dioxide 27 Anion Gap 12 Magnesium 2.1 ECG Interpretation: EKG with underlying sinus rhythm at 63/Min; no significant ST-T changes and otherwise unremarkable. Normal SC and corrected QT. Assessment and Plan (1) Preoperative cardiovascular examination: Status: Acute (2) Polysubstance (including opioids) dependence, daily use: Status: Acute (3) MDD (major depressive disorder), recurrent episode: Status: Acute Plan Stored EKGs strips with PVCs. Urine screen positive for opiates, methadone, fentanyl, cocaine from 11/06. Previously checked high sensitivity troponins within normal range. We will get an echocardiogram for cardiac function. Possibly ETT after that. We will follow up with you. Procedures Date of Service Date of Service: 11/14/24
[2024-11-14] MEDS: Nicotine Polacrilex 2 MG GUM 4 MG BUCCAL (09:31)
--- NOTE | 2024-11-14 10:10 | HO.PSYCHPN ---
Subjective Subjective Date of Service: 11/14/24 Reason For Visit: SI Subjective Notes: Conditional Voluntary Interim History: active on unit, keeping to self. guarded. patient reports he continues to feel the same as before ; denies SI. Patient reports he feels sore from ECT ; pt stated, my memory is fine now but it wasn't at first . per nursing, slept 9 hours. seen by cardiology; please see note. Medication Compliance: Yes Side effects from medications: No Attending Groups: No Mental Status Exam Mental Status Exam Patient Appearance: Appropriate Patient Orientation: Person, Place, Time and Situation Level of Consciousness: Awake Patient Behavior: Appropriate and Guarded Mood Description: Depressed Affect Description: Blunted Ability to Follow Directions: Good Speech Pattern: Clear Memory Description: Intact Hallucinations: None Delusions: Not Present Thought Process: Intact Thought Content: positive for Intact Diagnostics Vital Signs (24Hr): Vital Signs - 24 hr 11/13/24 19:52 11/14/24 07:30 Temperature 97.8 F 97.7 F Pulse Rate 75 69 Respiratory Rate 14 Blood Pressure 96/52 L 98/60 Pulse Oximetry 93 95 Oxygen Delivery Method Room Air Room Air BMI result Body Mass Index 26.5 Labs 11/13/24 09:59 Labs: Laboratory Results - last 48 hr 11/13/24 09:59 Sodium 140 Potassium 4.3 Chloride 105 Carbon Dioxide 27 Anion Gap 12 Magnesium 2.1 Imaging Radiology Impressions: ITS Impressions Chest X-Ray 11/11/24 11:30 IMPRESSION: 1. Slightly smaller layering left effusion with similar left base consolidation. 2. Right lung remains clear. Electronically signed by: Jackson Clancy MD 11/11/2024 11:42 AM EDT Medications Medications Current Medications Acetaminophen (Acetaminophen 325 Mg Tablet) 975 mg PO Q6H PRN PRN Reason: Headache/Pain, Scale 1-3 Al Hydroxide/Mg Hydroxide (Magnesium Hydrox/Alum Hydrox 30 Ml Oral.Susp) 30 ml PO Q6H PRN PRN Reason: Heartburn/Nausea Chlorpromazine HCl (Chlorpromazine Hcl 100 Mg Tablet) 200 mg PO Q4H PRN PRN Reason: Anxiety Last Admin: 11/14/24 08:37 Dose: 200 mg Fluoxetine HCl (Fluoxetine Hcl 20 Mg Capsule) 40 mg PO DAILY [facility] Last Admin: 11/14/24 08:09 Dose: 40 mg Gabapentin (Gabapentin 300 Mg Capsule) 300 mg PO TID [facility] Last Admin: 11/14/24 08:09 Dose: 300 mg Hydroxyzine HCl (Hydroxyzine Hcl 25 Mg Tablet) 25 mg PO Q6H PRN PRN Reason: mild anxiety Ibuprofen (Ibuprofen 800 Mg Tablet) 800 mg PO Q8H PRN PRN Reason: Pain (Pain Scale 4-10) Last Admin: 11/14/24 08:09 Dose: 800 mg Magnesium Hydroxide (Milk Of Magnesia 30 Ml Oral.Susp) 30 ml PO DAILY PRN PRN Reason: Constipation Methadone HCl (Methadone Hcl 20 Mg/2 Ml Oral.Conc) 140 mg PO DAILY [facility] Last Admin: 11/14/24 07:50 Dose: 140 mg Naloxone HCl (Naloxone Hcl 0.4 Mg/Ml Vial) 0.04 mg IVPUSH Q5M PRN PRN Reason: Excessive sedation or RR < 8 Nicotine Polacrilex (Nicotine Polacrilex 2 Mg Gum) 4 mg BUCCAL Q2H PRN PRN Reason: Nicotine Cravings Last Admin: 11/14/24 09:31 Dose: 4 mg Allergies Allergies Allergy/AdvReac Type Severity Reaction Status Date / Time mayonnaise [MAYONNAISE] Allergy Intermediate THROAT AND Verified 11/05/24 23:25 TONGUE ITCH quetiapine [From SEROQUEL] Allergy Intermediate DYSTONIA Verified 11/05/24 23:25 cat dander [CATS] Allergy Unknown WATERY Verified 11/05/24 23:25 EYES, SNEEZING dog dander [DOG] Allergy Unknown UNKNOWN Verified 11/05/24 23:25 paroxetine [From PAXIL] Allergy Unknown FLU LIKE Verified 11/05/24 23:25 SYMPTOMS penicillin V Allergy Unknown Unknown Verified 11/05/24 23:25 Penicillins [PENICILLINS] Allergy Unknown SWELLING Verified 11/05/24 23:25 SEAFOOD Allergy Severe DIFFICULTY Uncoded 11/05/24 23:25 BREATHING Assessment & Plan Assessment & Plan (1) MDD (major depressive disorder), recurrent episode: Status: Acute Code(s): F33.9 - Major depressive disorder, recurrent, unspecified (2) Preoperative cardiovascular examination: Status: Acute Code(s): Z01.810 - Encounter for preprocedural cardiovascular examination (3) Polysubstance (including opioids) dependence, daily use: Status: Acute Code(s): F11.20 - Opioid dependence, uncomplicated; F19.20 - Other psychoactive substance dependence, uncomplicated Plan 11/07: continue outpt medications. risk strat for ECT. ECT consult. plan for ECT. T/C section 35. 11/08: medically low risk for ECT. case d/w brandon, suitable for ECT. continue home medications and pneumonia Tx. pursuing insurance clearance for ECT. 11/09 continue tx. 11/10 continue tx. 11/11: no change in presentation. reports trials on the following medications: lithium, depakote, trileptal, gabapentin, prozac, paxil, zoloft, lexapro, abilify, thorazine, haldol, remeron, trazodone, clonidine, klonopin in various doses and combinations over the years. awaiting insurance approval for ECT, may start as soon as monday. repeat CXR due to continued c/o CP 2/ pneumonia. 11/12: per repeat CXR, pleural effusion shrinking. CP remains. using incentive spirometer. PMA, temporal wasting, very anxious today with panic attacks per report. awaiting word from insurance re ECT. continue current mgmt otherwise. 11/13: approved for ECT, ECT #1 completed thismorning without incident. c/o anxiety, increase thorazine PRNs from 125 mg each to 200 mg each. HOLD gabapentin nights prior to ECT and mornings of. otherwise continue current mgmt. 11/14: guarded. patient reports he continues to feel the same as before ; denies SI. Patient reports he feels sore from ECT ; pt stated, my memory is fine now but it wasn't at first . per nursing, slept 9 hours. seen by cardiology; please see note Patient educated on: medication risk/benefits Reason for continued inpatient stay Substantial Risk for: med/psych decompensation Time Spent With Patient Time: Total time managing care of this patient today _10___ minutes.
--- NOTE | 2024-11-14 11:28 | CA_ITS ---
Acquisition Time: 2024-11-14 11:46:53 Total Exercise Time: 00:06:49 Test Indications: Medications: Protocol: REYNA Max HR: 166 BPM 91% of Pred: 181 BPM Max BP: 128/48 mmHG Max Work Load: 8.2 METS Exercise Stress tets with exercise 6 mins 69 secs of Reyna Protocol, achieving 91% MPHR, with reports of mild SOB and leg discomfort requesting to stop, with isolated PVCs, with normotensive reponse to exercise. Without EKG changes meeting criteria for ischemia. In recovery, breathing returned to baseline. Test reviewed with Dr. Greene. Referred By: Raymond Greene Electronically Signed By: Carloz Chatterjee
[2024-11-14 19:45] VITALS: BP 102/55; PULSE 72; RESP 18; TEMP 36.3; O2SAT 94
[2024-11-15] VITALS (10 sets, daily range): BP systolic 100–125; BP diastolic 57–76; PULSE 68–110; RESP 16; TEMP 36.1–36.7; O2SAT 94–99
[2024-11-15] MEDS: Lactated Ringers 1,000 ML 100 ML IVCONT (06:43)
--- NOTE | 2024-11-15 06:50 | P.CONAN_ITS ---
[facility] Active Problems Active Problems: All Active Problems Preoperative cardiovascular examination (Acute) MDD (major depressive disorder), recurrent episode (Acute) Depressive disorder (Acute) Pre-op evaluation (Acute) Pneumonia (Acute) Suicidal ideation (Acute) Depression with suicidal ideation (Acute) Traumatic hematoma of lower leg (Acute) Polysubstance (including opioids) dependence, daily use (Acute) Cocaine abuse (Acute) Substance induced mood disorder (Acute) Moderate benzodiazepine use disorder (Acute) Opioid use disorder, moderate, dependence (Acute) Asthma (Acute) Pulmonary nodules (Acute) PTSD (post-traumatic stress disorder) (Acute) Past Medical History Medical History (Updated 11/14/24 @ 09:23 by Raymond Greene MD) MDD (major depressive disorder), recurrent episode Fentanyl use disorder, severe Benzodiazepine abuse Cellulitis Depression Polysubstance abuse Knee cartilage, torn, right ACL (anterior cruciate ligament) rupture Asthma Hepatitis C Hepatitis C antibody positive in blood Family History Family History (Updated 11/14/24 @ 09:22 by Raymond Greene MD) Father No problems noted. Mother No problems noted. Family history of problems with anesthesia: No Surgical History History of Problems with Anesthesia: No Social History Social History Household Members: None Household Members Other:: brother Housing: Homeless Do you presently have visiting nurse or other home services: No Unable to assess alcohol history related to: Unknown Alcohol intake: former Comment: pt on 5 min safety checks Patient Tobacco Use Status: Former Tobacco user Tobacco use type: Cigarette Cigarette Packs Per Day: 10 Cigarettes Per Day: 10 Years Smoked: 10 Smoked in Last 30 Days: Yes e-Cigarette/Vaping Use: Currently Using Patient Interested in Nicotine Replacement: Yes Second Hand Smoke Exposure: No Use of substances other than those prescribed or required for medical reasons: Yes Substance Use Type: Other Substance Use Type Other:: fentanyl Substance Use Frequency: Occasionally Last Used Substance: Just Prior to Admission Currently Displaying Signs/Symptoms of Drug Intoxication Withdrawal: No Any prior treatment program specific to substance use: Yes (methadone clinic) Have you been hit, kicked, punched, or otherwise hurt by someone within the past year? If so, by whom?: No Do you feel safe in your current relationship?: No Current Relationship Is there a partner from a previous relationship who is making you feel unsafe now?: No Are you made to feel afraid or neglected: No Confucianist Healthcare Practices: rastafarian Advance Directives: No Advance Directives Information Provided: Yes Do you have thoughts of harming others: None Do you have a plan to hurt others: No Plan Recently lost weight without trying: No Eating poorly because of decreased appetite: No Nutrition Risks: No Nutritional Risk Poor oral hygiene: No service: No Sexual orientation: Straight/Heterosexual Meds Allergies Allergy/AdvReac Type Severity Reaction Status Date / Time mayonnaise [MAYONNAISE] Allergy Intermediate THROAT AND Verified 11/05/24 23:25 TONGUE ITCH quetiapine [From SEROQUEL] Allergy Intermediate DYSTONIA Verified 11/05/24 23:25 cat dander [CATS] Allergy Unknown WATERY Verified 11/05/24 23:25 EYES, SNEEZING dog dander [DOG] Allergy Unknown UNKNOWN Verified 11/05/24 23:25 paroxetine [From PAXIL] Allergy Unknown FLU LIKE Verified 11/05/24 23:25 SYMPTOMS penicillin V Allergy Unknown Unknown Verified 11/05/24 23:25 Penicillins [PENICILLINS] Allergy Unknown SWELLING Verified 11/05/24 23:25 SEAFOOD Allergy Severe DIFFICULTY Uncoded 11/05/24 23:25 BREATHING Active Medications: Current Medications Acetaminophen (Acetaminophen 325 Mg Tablet) 975 mg PO Q6H PRN PRN Reason: Headache/Pain, Scale 1-3 Al Hydroxide/Mg Hydroxide (Magnesium Hydrox/Alum Hydrox 30 Ml Oral.Susp) 30 ml PO Q6H PRN PRN Reason: Heartburn/Nausea Chlorpromazine HCl (Chlorpromazine Hcl 100 Mg Tablet) 200 mg PO Q4H PRN PRN Reason: Anxiety Last Admin: 11/14/24 20:41 Dose: 200 mg Fluoxetine HCl (Fluoxetine Hcl 20 Mg Capsule) 40 mg PO DAILY [facility] Last Admin: 11/14/24 08:09 Dose: 40 mg Gabapentin (Gabapentin 300 Mg Capsule) 300 mg PO TID [facility] Last Admin: 11/14/24 20:32 Dose: Not Given Hydroxyzine HCl (Hydroxyzine Hcl 25 Mg Tablet) 25 mg PO Q6H PRN PRN Reason: mild anxiety Lactated Ringer's (Lr) 1,000 mls @ 100 mls/hr IVCONT .Q10H [facility] Last Admin: 11/15/24 06:43 Dose: 100 mls/hr Lactated Ringer's (Lr) 1,000 mls @ 50 mls/hr IVCONT .Q20H [facility] Ibuprofen (Ibuprofen 800 Mg Tablet) 800 mg PO Q8H PRN PRN Reason: Pain (Pain Scale 4-10) Last Admin: 11/14/24 20:41 Dose: 800 mg Magnesium Hydroxide (Milk Of Magnesia 30 Ml Oral.Susp) 30 ml PO DAILY PRN PRN Reason: Constipation Methadone HCl (Methadone Hcl 20 Mg/2 Ml Oral.Conc) 140 mg PO DAILY [facility] Last Admin: 11/14/24 07:50 Dose: 140 mg Naloxone HCl (Naloxone Hcl 0.4 Mg/Ml Vial) 0.04 mg IVPUSH Q5M PRN PRN Reason: Excessive sedation or RR < 8 Naloxone HCl (Naloxone Hcl 0.4 Mg/Ml Vial) 0.04 mg IVPUSH Q5M PRN PRN Reason: Excessive sedation or RR < 8 Nicotine Polacrilex (Nicotine Polacrilex 2 Mg Gum) 4 mg BUCCAL Q2H PRN PRN Reason: Nicotine Cravings Last Admin: 11/14/24 09:31 Dose: 4 mg Home Medications ?Medication ?Instructions ?Recorded ?Confirmed ?Last Taken ?Type methadone 10 mg/mL oral 140 mg PO DAILY 11/06/24 11/06/24 11/05/24 08:00 History concentrate (Methadose) Exam Height,Weight and Vital Signs: Height 5 ft 10 in Weight 83.915 kg Last Vital Signs Temp 98.1 F 11/15/24 06:41 Pulse 68 11/15/24 06:41 Resp 16 11/15/24 06:41 BP 125/74 11/15/24 06:41 Pulse Ox 99 11/15/24 06:41 O2 Del Method Room Air 11/15/24 06:41 O2 Flow Rate 2 11/13/24 08:20 Pertinent Lab Results Pertinent Lab Results: Laboratory Tests 11/06/24 11/13/24 00:51 09:59 Sodium 140 Potassium 4.3 Chloride 105 Carbon Dioxide 27 Anion Gap 12 Magnesium 2.1 Urine Opiates Screen POSITIVE H Ur Buprenorphine Scrn Not Detected Ur Oxycodone Screen Not Detected Urine Methadone Screen Positive H Urine Fentanyl Screen POSITIVE H Ur Barbiturates Screen Not Detected Ur Phencyclidine Scrn Not Detected Ur Amphetamines Screen Not Detected U Benzodiazepines Scrn Not Detected Urine Cocaine Screen POSITIVE H U Marijuana (THC) Screen Not Detected Ethyl Alcohol < 10 Airway Mallampati Class: II TM Dist: >3cm Neck ROM: Full Heart: rrr Lungs: cta Assessment and Plan Assessment Anesthesia Assessment: Anesthesia Plan Discussed and Chart Reviewed Final Anesthetic Review Family History of Problems with Anesthesia: No History of Problems with Anesthesia: No NPO: Yes ASA Class: III Final Preanesthetic Review: No Changes in Pt Med Stat, Meds/Allgs Chart Reviewed and Consent Obtained/Reviewed Patient Risk: Intermediate Procedure Risk: Intermediate Anesthetic Plan Anesthetic Plan: GA Disposition: Standard PACU
--- NOTE | 2024-11-15 07:11 | MHC.SHP ---
Pre-Procedural Eval Section A - 24 Hr Update-Section A only Date of Service: 11/15/24 Changes since office visit: Yes New Medical Problems and Yes Patient answered all questions; No Cold of Flu in the past 2 weeks and No Changes in Medication The patient has been examined within 24 hours of the surgical procedure. The History & Physical has been completed within 30 days and I have reviewed it.: Yes Section B - Complete if H&P > 30 days Chief Complaint: SI Allergies: Allergies Allergy/AdvReac Type Severity Reaction Status Date / Time mayonnaise [MAYONNAISE] Allergy Intermediate THROAT AND Verified 11/05/24 23:25 TONGUE ITCH quetiapine [From SEROQUEL] Allergy Intermediate DYSTONIA Verified 11/05/24 23:25 cat dander [CATS] Allergy Unknown WATERY Verified 11/05/24 23:25 EYES, SNEEZING dog dander [DOG] Allergy Unknown UNKNOWN Verified 11/05/24 23:25 paroxetine [From PAXIL] Allergy Unknown FLU LIKE Verified 11/05/24 23:25 SYMPTOMS penicillin V Allergy Unknown Unknown Verified 11/05/24 23:25 Penicillins [PENICILLINS] Allergy Unknown SWELLING Verified 11/05/24 23:25 SEAFOOD Allergy Severe DIFFICULTY Uncoded 11/05/24 23:25 BREATHING Plan I have reviewed the history and physical and performed a pertinent physical examination on my patient. No changes have occurred unless specified. Time Spent With Patient Time: Total time managing care of this patient today ____ minutes.
--- NOTE | 2024-11-15 07:44 | HO.ECTPROC ---
ECT Procedure Note Diagnosis/Treatment Date of Service: 11/15/24 Diagnosis: Major Depressive Disorder Previous ECT Date: 11/13/24 Current Treatment Number: 2 Treatment: Series Interval Clinical Notes: pt medically evaluated by cardiology felt ok for cont ect was tx rul transient pause bigeminy less than previous post op agitation given lorazepam iv post suggest change to brevital discussed with anesthesia dec rul 0.25 program NO ZOFRAN Time: Total time managing care of this patient today _30___ minutes. ECT Settings Device: THYMATRON DGx Electrode Placement: Right Unilateral Program/Pulse Width: 0.50 Energy Percent: 70 Seizure Duration By EEG (in seconds): 55 Medications Administration General Anesthetic: Etomidate (16) Muscle Relaxant: Succinylcholine (100) Ancillary Medications Analgesics: Torodol - Pre ECT (30) Airway Management Airway Management: Bag Mask Ventilation Treatment Recommendations Electrode Placement: Right Unilateral Program/Pulse Width: 0.25 Energy Percent: 100 Notes: CHANGE TO BREVITAL
[2024-11-15] MEDS: LORazepam 2 MG/ML VIAL 1 MG IVPUSH ×2 (07:48)
[2024-11-15] MEDS: methADONE HCl 20 MG/2 ML ORAL.CONC 140 MG PO (08:48)
[2024-11-15] MEDS: chlorproMAZINE HCl 100 MG TABLET 200 MG PO (08:50)
[2024-11-15] MEDS: FLUoxetine HCl 20 MG CAPSULE 40 MG PO (08:51)
[2024-11-15] MEDS: Gabapentin 300 MG CAPSULE PO ×3 (08:51→20:54)
--- NOTE | 2024-11-15 13:47 | HO.PSYCHPN ---
Subjective Subjective Date of Service: 11/15/24 Reason For Visit: SI Interim History: i feel good. reports he is ruminating less on his homeless brother, mood improved, less preoccupied. noted to be nodding off. informs him thorazine PRNs will be cut to 150 mg each. per staff, dep 2 anx 6-7. using thorazine. ECT this morning. slept 7 pm on. Mental Status Exam Mental Status Exam Narrative: sedated. appropriately dressed and groomed. marked temporal wasting. cooperative. no PMA/PMR. speech nml rate, soft, decreased in amount. reduced prosody. thoughts linear and logical. affect constricted, hypo-intense, non-labile. mood i feel good. no SI/HI/AVH expressed. Diagnostics Vital Signs (24Hr): Vital Signs - 24 hr 11/14/24 19:45 11/15/24 06:10 11/15/24 06:41 Temperature 97.4 F 97.3 F 98.1 F Pulse Rate 72 68 68 Respiratory Rate 18 16 16 Blood Pressure 102/55 L 100/63 125/74 Pulse Oximetry 94 96 99 Oxygen Delivery Method Room Air Room Air Oxygen Flow Rate 11/15/24 07:46 11/15/24 07:51 11/15/24 07:56 Temperature 97.7 F Pulse Rate 70 76 74 Respiratory Rate 16 16 16 Blood Pressure 116/74 106/61 111/63 Pulse Oximetry 98 94 95 Oxygen Delivery Method Nasal Cannula with ETCO2 Nasal Cannula with ETCO2 Nasal Cannula with ETCO2 Oxygen Flow Rate 2 2 2 11/15/24 08:01 11/15/24 08:16 11/15/24 08:45 Temperature 97.7 F 97.4 F Pulse Rate 81 99 110 H Respiratory Rate 16 16 16 Blood Pressure 103/58 L 110/71 121/76 Pulse Oximetry 95 99 97 Oxygen Delivery Method Room Air Room Air Room Air Oxygen Flow Rate 11/15/24 08:53 Temperature 97.4 F Pulse Rate 110 H Respiratory Rate 16 Blood Pressure 121/76 Pulse Oximetry 97 Oxygen Delivery Method Oxygen Flow Rate BMI result Body Mass Index 26.5 Labs 11/13/24 09:59 Imaging Radiology Impressions: ITS Impressions Chest X-Ray 11/11/24 11:30 IMPRESSION: 1. Slightly smaller layering left effusion with similar left base consolidation. 2. Right lung remains clear. Electronically signed by: Jackson Clancy MD 11/11/2024 11:42 AM EDT Medications Medications Current Medications Acetaminophen (Acetaminophen 325 Mg Tablet) 975 mg PO Q6H PRN PRN Reason: Headache/Pain, Scale 1-3 Al Hydroxide/Mg Hydroxide (Magnesium Hydrox/Alum Hydrox 30 Ml Oral.Susp) 30 ml PO Q6H PRN PRN Reason: Heartburn/Nausea Chlorpromazine HCl (Chlorpromazine Hcl 25 Mg Tablet) 150 mg PO Q6H PRN PRN Reason: Anxiety Fluoxetine HCl (Fluoxetine Hcl 20 Mg Capsule) 40 mg PO DAILY [facility] Last Admin: 11/15/24 08:51 Dose: 40 mg Gabapentin (Gabapentin 300 Mg Capsule) 300 mg PO TID [facility] Last Admin: 11/15/24 08:51 Dose: 300 mg Hydroxyzine HCl (Hydroxyzine Hcl 25 Mg Tablet) 25 mg PO Q6H PRN PRN Reason: mild anxiety Ibuprofen (Ibuprofen 800 Mg Tablet) 800 mg PO Q8H PRN PRN Reason: Pain (Pain Scale 4-10) Last Admin: 11/14/24 20:41 Dose: 800 mg Magnesium Hydroxide (Milk Of Magnesia 30 Ml Oral.Susp) 30 ml PO DAILY PRN PRN Reason: Constipation Methadone HCl (Methadone Hcl 20 Mg/2 Ml Oral.Conc) 140 mg PO DAILY [facility] Last Admin: 11/15/24 08:48 Dose: 140 mg Naloxone HCl (Naloxone Hcl 0.4 Mg/Ml Vial) 0.04 mg IVPUSH Q5M PRN PRN Reason: Excessive sedation or RR < 8 Naloxone HCl (Naloxone Hcl 0.4 Mg/Ml Vial) 0.04 mg IVPUSH Q5M PRN PRN Reason: Excessive sedation or RR < 8 Nicotine Polacrilex (Nicotine Polacrilex 2 Mg Gum) 4 mg BUCCAL Q2H PRN PRN Reason: Nicotine Cravings Last Admin: 11/14/24 09:31 Dose: 4 mg Allergies Allergies Allergy/AdvReac Type Severity Reaction Status Date / Time mayonnaise [MAYONNAISE] Allergy Intermediate THROAT AND Verified 11/05/24 23:25 TONGUE ITCH quetiapine [From SEROQUEL] Allergy Intermediate DYSTONIA Verified 11/05/24 23:25 cat dander [CATS] Allergy Unknown WATERY Verified 11/05/24 23:25 EYES, SNEEZING dog dander [DOG] Allergy Unknown UNKNOWN Verified 11/05/24 23:25 paroxetine [From PAXIL] Allergy Unknown FLU LIKE Verified 11/05/24 23:25 SYMPTOMS penicillin V Allergy Unknown Unknown Verified 11/05/24 23:25 Penicillins [PENICILLINS] Allergy Unknown SWELLING Verified 11/05/24 23:25 SEAFOOD Allergy Severe DIFFICULTY Uncoded 11/05/24 23:25 BREATHING Assessment & Plan Assessment & Plan (1) MDD (major depressive disorder), recurrent episode: Status: Acute Code(s): F33.9 - Major depressive disorder, recurrent, unspecified (2) Preoperative cardiovascular examination: Status: Acute Code(s): Z01.810 - Encounter for preprocedural cardiovascular examination (3) Polysubstance (including opioids) dependence, daily use: Status: Acute Code(s): F11.20 - Opioid dependence, uncomplicated; F19.20 - Other psychoactive substance dependence, uncomplicated Plan 11/07: continue outpt medications. risk strat for ECT. ECT consult. plan for ECT. T/C section 35. 11/08: medically low risk for ECT. case d/w brandon, suitable for ECT. continue home medications and pneumonia Tx. pursuing insurance clearance for ECT. 11/09 continue tx. 11/10 continue tx. 11/11: no change in presentation. reports trials on the following medications: lithium, depakote, trileptal, gabapentin, prozac, paxil, zoloft, lexapro, abilify, thorazine, haldol, remeron, trazodone, clonidine, klonopin in various doses and combinations over the years. awaiting insurance approval for ECT, may start as soon as monday. repeat CXR due to continued c/o CP 2/2 pneumonia. 11/12: per repeat CXR, pleural effusion shrinking. CP remains. using incentive spirometer. PMA, temporal wasting, very anxious today with panic attacks per report. awaiting word from insurance re ECT. continue current mgmt otherwise. 11/13: approved for ECT, ECT #1 completed thismorning without incident. c/o anxiety, increase thorazine PRNs from 125 mg each to 200 mg each. HOLD gabapentin nights prior to ECT and mornings of. otherwise continue current mgmt. 11/14: guarded. patient reports he continues to feel the same as before ; denies SI. Patient reports he feels sore from ECT ; pt stated, my memory is fine now but it wasn't at first . per nursing, slept 9 hours. seen by cardiology; please see note. 11/15: reports he feels good, less ruminative, preoccupied, negativistic. ECT #2 completed today without incident. noted to be sedated, decrease thorazine PRNs from 200 mg each to 150 mg each and increase interval to Q6H from Q4H. continue to taper PRN thorazine as indicated over w/e. cardiology found nothing concerning in eval and recommended continued ECT. ECT #3 monday. Reason for continued inpatient stay Substantial Risk for: harm to self, inability to function and rapid decompensation Time Spent With Patient Time: Total time managing care of this patient today __25__ minutes.
[2024-11-15] MEDS: chlorproMAZINE HCl 25 MG TABLET 150 MG PO (20:54)
[2024-11-15] MEDS: Ibuprofen 800 MG TABLET PO (20:54)
[2024-11-16] MEDS: methADONE HCl 20 MG/2 ML ORAL.CONC 140 MG PO (07:57)
[2024-11-16 08:00] VITALS: BP 131/72; PULSE 110; RESP 16; TEMP 36.6; O2SAT 98
[2024-11-16] MEDS: Gabapentin 300 MG CAPSULE PO ×3 (08:17→20:35)
[2024-11-16] MEDS: FLUoxetine HCl 20 MG CAPSULE 40 MG PO (08:17)
[2024-11-16] MEDS: chlorproMAZINE HCl 25 MG TABLET 150 MG PO ×2 (08:18→20:35)
--- NOTE | 2024-11-16 09:01 | HO.PSYCHPN ---
Subjective Subjective Date of Service: 11/16/24 Reason For Visit: SI Subjective Notes: Conditional Voluntary Interim History: Active on unit, keeping to self. patient reports feeling good and having a little energy today ; pt stated, I'm not feeling as depressed and my body aches went away . denies SI/HI/VH/AH. per nursing, slept 8 hours. Medication Compliance: Yes Side effects from medications: No Attending Groups: No Mental Status Exam Mental Status Exam Patient Appearance: Well Grooomed Patient Orientation: Person, Place, Time and Situation Level of Consciousness: Awake and Alert Patient Behavior: Appropriate, Cooperative and Good Eye Contact Mood Description: Calm Affect Description: Calm Ability to Follow Directions: Good Speech Pattern: Clear and Appropriate Memory Description: Intact Hallucinations: None Delusions: Not Present Thought Process: Intact Thought Content: positive for Intact Diagnostics Vital Signs (24Hr): Vital Signs - 24 hr 11/15/24 19:33 Temperature 97.0 F Pulse Rate 87 Respiratory Rate 16 Blood Pressure 106/57 L Pulse Oximetry 94 Oxygen Delivery Method Room Air BMI result Body Mass Index 26.5 Labs 11/13/24 09:59 Imaging Radiology Impressions: ITS Impressions Chest X-Ray 11/11/24 11:30 IMPRESSION: 1. Slightly smaller layering left effusion with similar left base consolidation. 2. Right lung remains clear. Electronically signed by: Jackson Clancy MD 11/11/2024 11:42 AM EDT Medications Medications Current Medications Acetaminophen (Acetaminophen 325 Mg Tablet) 975 mg PO Q6H PRN PRN Reason: Headache/Pain, Scale 1-3 Al Hydroxide/Mg Hydroxide (Magnesium Hydrox/Alum Hydrox 30 Ml Oral.Susp) 30 ml PO Q6H PRN PRN Reason: Heartburn/Nausea Chlorpromazine HCl (Chlorpromazine Hcl 25 Mg Tablet) 150 mg PO Q6H PRN PRN Reason: Anxiety Last Admin: 11/16/24 08:18 Dose: 150 mg Fluoxetine HCl (Fluoxetine Hcl 20 Mg Capsule) 40 mg PO DAILY [facility] Last Admin: 11/16/24 08:17 Dose: 40 mg Gabapentin (Gabapentin 300 Mg Capsule) 300 mg PO TID [facility] Last Admin: 11/16/24 08:17 Dose: 300 mg Hydroxyzine HCl (Hydroxyzine Hcl 25 Mg Tablet) 25 mg PO Q6H PRN PRN Reason: mild anxiety Ibuprofen (Ibuprofen 800 Mg Tablet) 800 mg PO Q8H PRN PRN Reason: Pain (Pain Scale 4-10) Last Admin: 11/15/24 20:54 Dose: 800 mg Magnesium Hydroxide (Milk Of Magnesia 30 Ml Oral.Susp) 30 ml PO DAILY PRN PRN Reason: Constipation Methadone HCl (Methadone Hcl 20 Mg/2 Ml Oral.Conc) 140 mg PO DAILY [facility] Last Admin: 11/16/24 07:57 Dose: 140 mg Naloxone HCl (Naloxone Hcl 0.4 Mg/Ml Vial) 0.04 mg IVPUSH Q5M PRN PRN Reason: Excessive sedation or RR < 8 Naloxone HCl (Naloxone Hcl 0.4 Mg/Ml Vial) 0.04 mg IVPUSH Q5M PRN PRN Reason: Excessive sedation or RR < 8 Nicotine Polacrilex (Nicotine Polacrilex 2 Mg Gum) 4 mg BUCCAL Q2H PRN PRN Reason: Nicotine Cravings Last Admin: 11/14/24 09:31 Dose: 4 mg Allergies Allergies Allergy/AdvReac Type Severity Reaction Status Date / Time mayonnaise [MAYONNAISE] Allergy Intermediate THROAT AND Verified 11/05/24 23:25 TONGUE ITCH quetiapine [From SEROQUEL] Allergy Intermediate DYSTONIA Verified 11/05/24 23:25 cat dander [CATS] Allergy Unknown WATERY Verified 11/05/24 23:25 EYES, SNEEZING dog dander [DOG] Allergy Unknown UNKNOWN Verified 11/05/24 23:25 paroxetine [From PAXIL] Allergy Unknown FLU LIKE Verified 11/05/24 23:25 SYMPTOMS penicillin V Allergy Unknown Unknown Verified 11/05/24 23:25 Penicillins [PENICILLINS] Allergy Unknown SWELLING Verified 11/05/24 23:25 SEAFOOD Allergy Severe DIFFICULTY Uncoded 11/05/24 23:25 BREATHING Assessment & Plan Assessment & Plan (1) MDD (major depressive disorder), recurrent episode: Status: Acute Code(s): F33.9 - Major depressive disorder, recurrent, unspecified (2) Preoperative cardiovascular examination: Status: Acute Code(s): Z01.810 - Encounter for preprocedural cardiovascular examination (3) Polysubstance (including opioids) dependence, daily use: Status: Acute Code(s): F11.20 - Opioid dependence, uncomplicated; F19.20 - Other psychoactive substance dependence, uncomplicated Plan 11/07: continue outpt medications. risk strat for ECT. ECT consult. plan for ECT. T/C section 35. 11/08: medically low risk for ECT. case d/w brandon, suitable for ECT. continue home medications and pneumonia Tx. pursuing insurance clearance for ECT. 11/09 continue tx. 11/10 continue tx. 11/11: no change in presentation. reports trials on the following medications: lithium, depakote, trileptal, gabapentin, prozac, paxil, zoloft, lexapro, abilify, thorazine, haldol, remeron, trazodone, clonidine, klonopin in various doses and combinations over the years. awaiting insurance approval for ECT, may start as soon as monday. repeat CXR due to continued c/o CP 2/2 pneumonia. 11/12: per repeat CXR, pleural effusion shrinking. CP remains. using incentive spirometer. PMA, temporal wasting, very anxious today with panic attacks per report. awaiting word from insurance re ECT. continue current mgmt otherwise. 11/13: approved for ECT, ECT #1 completed thismorning without incident. c/o anxiety, increase thorazine PRNs from 125 mg each to 200 mg each. HOLD gabapentin nights prior to ECT and mornings of. otherwise continue current mgmt. 11/14: guarded. patient reports he continues to feel the same as before ; denies SI. Patient reports he feels sore from ECT ; pt stated, my memory is fine now but it wasn't at first . per nursing, slept 9 hours. seen by cardiology; please see note. 11/15: reports he feels good, less ruminative, preoccupied, negativistic. ECT #2 completed today without incident. noted to be sedated, decrease thorazine PRNs from 200 mg each to 150 mg each and increase interval to Q6H from Q4H. continue to taper PRN thorazine as indicated over w/e. cardiology found nothing concerning in eval and recommended continued ECT. ECT #3 monday. 11/16: patient reports feeling good and having a little energy today ; pt stated, I'm not feeling as depressed and my body aches went away . denies SI/HI/VH/AH. per nursing, slept 8 hours. continue current tx plan Patient educated on: medication risk/benefits Reason for continued inpatient stay Substantial Risk for: med/psych decompensation Time Spent With Patient Time: Total time managing care of this patient today _20___ minutes.
[2024-11-16] MEDS: Nicotine Polacrilex 2 MG GUM 4 MG BUCCAL (10:48)
[2024-11-16 20:10] VITALS: BP 109/67; PULSE 70; RESP 16; TEMP 36.4; O2SAT 96
[2024-11-16] MEDS: Ibuprofen 800 MG TABLET PO (20:35)
[2024-11-17] MEDS: methADONE HCl 20 MG/2 ML ORAL.CONC 140 MG PO (07:57)
[2024-11-17 08:44] VITALS: BP 121/81; PULSE 96; RESP 16; TEMP 36.9; O2SAT 97
[2024-11-17] MEDS: chlorproMAZINE HCl 25 MG TABLET 150 MG PO ×2 (08:45→20:40)
[2024-11-17] MEDS: Ibuprofen 800 MG TABLET PO ×2 (08:46→20:40)
[2024-11-17] MEDS: Gabapentin 300 MG CAPSULE PO (08:46)
[2024-11-17] MEDS: FLUoxetine HCl 20 MG CAPSULE 40 MG PO (08:46)
--- NOTE | 2024-11-17 08:55 | P.PNPSI_ITS ---
Subjective Subjective Date of Service: 11/17/24 Reason For Visit: SI Interim History: Active on unit, keeping to self. patient continues to reports feeling good , c/o some anxiety. Patient reports he is worried about where he will go after discharge. denies SI/HI/VH/AH. Medication Compliance: Yes Side effects from medications: No Attending Groups: No Mental Status Exam Mental Status Exam Patient Appearance: Well Grooomed Patient Orientation: Person, Place, Time and Situation Level of Consciousness: Awake and Alert Patient Behavior: Appropriate, Cooperative and Good Eye Contact Mood Description: Calm Affect Description: Calm Ability to Follow Directions: Good Speech Pattern: Clear and Appropriate Memory Description: Intact Hallucinations: None Delusions: Not Present Thought Process: Intact and Goal Oriented Thought Content: positive for Intact Diagnostics Vital Signs (24Hr): Vital Signs - 24 hr 11/16/24 20:10 11/17/24 08:44 Temperature 97.6 F 98.5 F Pulse Rate 70 96 Respiratory Rate 16 16 Blood Pressure 109/67 121/81 Pulse Oximetry 96 97 Oxygen Delivery Method Room Air Room Air BMI result Body Mass Index 26.5 Labs 11/13/24 09:59 Imaging Radiology Impressions: ITS Impressions Chest X-Ray 11/11/24 11:30 IMPRESSION: 1. Slightly smaller layering left effusion with similar left base consolidation. 2. Right lung remains clear. Electronically signed by: Jackson Clancy MD 11/11/2024 11:42 AM EDT RP Medications Medications Current Medications Acetaminophen (Acetaminophen 325 Mg Tablet) 975 mg PO Q6H PRN PRN Reason: Headache/Pain, Scale 1-3 Al Hydroxide/Mg Hydroxide (Magnesium Hydrox/Alum Hydrox 30 Ml Oral.Susp) 30 ml PO Q6H PRN PRN Reason: Heartburn/Nausea Chlorpromazine HCl (Chlorpromazine Hcl 25 Mg Tablet) 150 mg PO Q6H PRN PRN Reason: Anxiety Last Admin: 11/17/24 08:45 Dose: 150 mg Fluoxetine HCl (Fluoxetine Hcl 20 Mg Capsule) 40 mg PO DAILY [facility] Last Admin: 11/17/24 08:46 Dose: 40 mg Gabapentin (Gabapentin 300 Mg Capsule) 300 mg PO TID [facility] Last Admin: 11/17/24 08:46 Dose: 300 mg Hydroxyzine HCl (Hydroxyzine Hcl 25 Mg Tablet) 25 mg PO Q6H PRN PRN Reason: mild anxiety Ibuprofen (Ibuprofen 800 Mg Tablet) 800 mg PO Q8H PRN PRN Reason: Pain (Pain Scale 4-10) Last Admin: 11/17/24 08:46 Dose: 800 mg Magnesium Hydroxide (Milk Of Magnesia 30 Ml Oral.Susp) 30 ml PO DAILY PRN PRN Reason: Constipation Methadone HCl (Methadone Hcl 20 Mg/2 Ml Oral.Conc) 140 mg PO DAILY [facility] Last Admin: 11/17/24 07:57 Dose: 140 mg Naloxone HCl (Naloxone Hcl 0.4 Mg/Ml Vial) 0.04 mg IVPUSH Q5M PRN PRN Reason: Excessive sedation or RR < 8 Naloxone HCl (Naloxone Hcl 0.4 Mg/Ml Vial) 0.04 mg IVPUSH Q5M PRN PRN Reason: Excessive sedation or RR < 8 Nicotine Polacrilex (Nicotine Polacrilex 2 Mg Gum) 4 mg BUCCAL Q2H PRN PRN Reason: Nicotine Cravings Last Admin: 11/16/24 10:48 Dose: 4 mg Allergies Allergies Allergy/AdvReac Type Severity Reaction Status Date / Time mayonnaise [MAYONNAISE] Allergy Intermediate THROAT AND Verified 11/05/24 23:25 TONGUE ITCH quetiapine [From SEROQUEL] Allergy Intermediate DYSTONIA Verified 11/05/24 23:25 cat dander [CATS] Allergy Unknown WATERY Verified 11/05/24 23:25 EYES, SNEEZING dog dander [DOG] Allergy Unknown UNKNOWN Verified 11/05/24 23:25 paroxetine [From PAXIL] Allergy Unknown FLU LIKE Verified 11/05/24 23:25 SYMPTOMS penicillin V Allergy Unknown Unknown Verified 11/05/24 23:25 Penicillins [PENICILLINS] Allergy Unknown SWELLING Verified 11/05/24 23:25 SEAFOOD Allergy Severe DIFFICULTY Uncoded 11/05/24 23:25 BREATHING Assessment & Plan Assessment & Plan (1) MDD (major depressive disorder), recurrent episode: Status: Acute Code(s): F33.9 - Major depressive disorder, recurrent, unspecified (2) Preoperative cardiovascular examination: Status: Acute Code(s): Z01.810 - Encounter for preprocedural cardiovascular examination (3) Polysubstance (including opioids) dependence, daily use: Status: Acute Code(s): F11.20 - Opioid dependence, uncomplicated; F19.20 - Other psychoactive substance dependence, uncomplicated Plan 11/07: continue outpt medications. risk strat for ECT. ECT consult. plan for ECT. T/C section 35. 11/08: medically low risk for ECT. case d/w brandon, suitable for ECT. continue home medications and pneumonia Tx. pursuing insurance clearance for ECT. 11/09 continue tx. 11/10 continue tx. 11/11: no change in presentation. reports trials on the following medications: lithium, depakote, trileptal, gabapentin, prozac, paxil, zoloft, lexapro, abilify, thorazine, haldol, remeron, trazodone, clonidine, klonopin in various doses and combinations over the years. awaiting insurance approval for ECT, may start as soon as monday. repeat CXR due to continued c/o CP 2/ pneumonia. 11/12: per repeat CXR, pleural effusion shrinking. CP remains. using incentive spirometer. PMA, temporal wasting, very anxious today with panic attacks per report. awaiting word from insurance re ECT. continue current mgmt otherwise. 11/13: approved for ECT, ECT #1 completed thismorning without incident. c/o anxiety, increase thorazine PRNs from 125 mg each to 200 mg each. HOLD gabapentin nights prior to ECT and mornings of. otherwise continue current mgmt. 11/14: guarded. patient reports he continues to feel the same as before ; denies SI. Patient reports he feels sore from ECT ; pt stated, my memory is fine now but it wasn't at first . per nursing, slept 9 hours. seen by cardiology; please see note. 11/15: reports he feels good, less ruminative, preoccupied, negativistic. ECT #2 completed today without incident. noted to be sedated, decrease thorazine PRNs from 200 mg each to 150 mg each and increase interval to Q6H from Q4H. continue to taper PRN thorazine as indicated over w/e. cardiology found nothing concerning in eval and recommended continued ECT. ECT #3 monday. 11/16: patient reports feeling good and having a little energy today ; pt stated, I'm not feeling as depressed and my body aches went away . denies SI/HI/VH/AH. per nursing, slept 8 hours. continue current tx plan 11/17: worried about where he will go after DC. continue tx plan. Patient educated on: medication risk/benefits Reason for continued inpatient stay Substantial Risk for: med/psych decompensation Time Spent With Patient Time: Total time managing care of this patient today _20___ minutes.
[2024-11-17] MEDS: Nicotine Polacrilex 2 MG GUM 4 MG BUCCAL (10:20)
[2024-11-17 20:00] VITALS: BP 108/63; PULSE 69; RESP 16; TEMP 36.4; O2SAT 96
[2024-11-18] VITALS (9 sets, daily range): BP systolic 113–142; BP diastolic 73–88; PULSE 66–104; RESP 16–18; TEMP 36.9–37.2; O2SAT 94–98
--- NOTE | 2024-11-18 07:45 | MHC.SHP ---
Pre-Procedural Eval Section A - 24 Hr Update-Section A only Date of Service: 11/18/24 The patient is an INPATIENT: Yes Changes since office visit: Yes Patient answered all questions; No Cold of Flu in the past 2 weeks, No New Medical Problems and No Changes in Medication The patient has been examined within 24 hours of the surgical procedure. The History & Physical has been completed within 30 days and I have reviewed it.: Yes Section B - Complete if H&P > 30 days Chief Complaint: SI Allergies: Allergies Allergy/AdvReac Type Severity Reaction Status Date / Time mayonnaise [MAYONNAISE] Allergy Intermediate THROAT AND Verified 11/05/24 23:25 TONGUE ITCH quetiapine [From SEROQUEL] Allergy Intermediate DYSTONIA Verified 11/05/24 23:25 cat dander [CATS] Allergy Unknown WATERY Verified 11/05/24 23:25 EYES, SNEEZING dog dander [DOG] Allergy Unknown UNKNOWN Verified 11/05/24 23:25 paroxetine [From PAXIL] Allergy Unknown FLU LIKE Verified 11/05/24 23:25 SYMPTOMS penicillin V Allergy Unknown Unknown Verified 11/05/24 23:25 Penicillins [PENICILLINS] Allergy Unknown SWELLING Verified 11/05/24 23:25 SEAFOOD Allergy Severe DIFFICULTY Uncoded 11/05/24 23:25 BREATHING Plan I have reviewed the history and physical and performed a pertinent physical examination on my patient. No changes have occurred unless specified. Time Spent With Patient Time: Total time managing care of this patient today ____ minutes.
--- NOTE | 2024-11-18 07:46 | HO.ECTPROC ---
ECT Procedure Note Diagnosis/Treatment Date of Service: 11/18/24 Diagnosis: Major Depressive Disorder Previous ECT Date: 11/15/24 Current Treatment Number: 3 Treatment: Series Interval Clinical Notes: Pt seen less depressed tolerating tx change etnomidate to brevital for smoother post op no cognitive complaints. Did better with versed 2 mg post Time: Total time managing care of this patient today __30__ minutes. ECT Settings Device: THYMATRON DGx Electrode Placement: Right Unilateral Program/Pulse Width: 0.25 Energy Percent: 100 Seizure Duration By EEG (in seconds): 58 Medications Administration General Anesthetic: Methohexital (100) Muscle Relaxant: Succinylcholine (100) Ancillary Medications Analgesics: Torodol - Pre ECT (30) Miscillaneous Medications: Midazolam (2mg) Airway Management Airway Management: Bag Mask Ventilation Treatment Recommendations No Changes Recommended: No change
[2024-11-18] MEDS: Lactated Ringers 1,000 ML 50 ML IVCONT (07:52)
--- NOTE | 2024-11-18 07:55 | HO.ANESPROP2 ---
[facility] Active Problems Active Problems: All Active Problems Preoperative cardiovascular examination (Acute) MDD (major depressive disorder), recurrent episode (Acute) Depressive disorder (Acute) Pre-op evaluation (Acute) Pneumonia (Acute) Suicidal ideation (Acute) Depression with suicidal ideation (Acute) Traumatic hematoma of lower leg (Acute) Polysubstance (including opioids) dependence, daily use (Acute) Cocaine abuse (Acute) Substance induced mood disorder (Acute) Moderate benzodiazepine use disorder (Acute) Opioid use disorder, moderate, dependence (Acute) Asthma (Acute) Pulmonary nodules (Acute) PTSD (post-traumatic stress disorder) (Acute) Past Medical History Medical History (Updated 11/14/24 @ 09:23 by Raymond Greene MD) MDD (major depressive disorder), recurrent episode Fentanyl use disorder, severe Benzodiazepine abuse Cellulitis Depression Polysubstance abuse Knee cartilage, torn, right ACL (anterior cruciate ligament) rupture Asthma Hepatitis C Hepatitis C antibody positive in blood Family History Family History (Updated 11/14/24 @ 09:22 by Raymond Greene MD) Father No problems noted. Mother No problems noted. Family history of problems with anesthesia: Unobtainable Surgical History History of Problems with Anesthesia: No Social History Social History Household Members: None Household Members Other:: brother Housing: Homeless Do you presently have visiting nurse or other home services: No Unable to assess alcohol history related to: Unknown Alcohol intake: former Comment: pt on 5 min safety checks Patient Tobacco Use Status: Former Tobacco user Tobacco use type: Cigarette Cigarette Packs Per Day: 10 Cigarettes Per Day: 10 Years Smoked: 10 Smoked in Last 30 Days: Yes e-Cigarette/Vaping Use: Currently Using Patient Interested in Nicotine Replacement: Yes Second Hand Smoke Exposure: No Use of substances other than those prescribed or required for medical reasons: Yes Substance Use Type: Other Substance Use Type Other:: fentanyl Substance Use Frequency: Occasionally Last Used Substance: Just Prior to Admission Currently Displaying Signs/Symptoms of Drug Intoxication Withdrawal: No Any prior treatment program specific to substance use: Yes (methadone clinic) Have you been hit, kicked, punched, or otherwise hurt by someone within the past year? If so, by whom?: No Do you feel safe in your current relationship?: No Current Relationship Is there a partner from a previous relationship who is making you feel unsafe now?: No Are you made to feel afraid or neglected: No Sabianism Healthcare Practices: anglican Advance Directives: No Advance Directives Information Provided: Yes Do you have thoughts of harming others: None Do you have a plan to hurt others: No Plan Recently lost weight without trying: No Eating poorly because of decreased appetite: No Nutrition Risks: No Nutritional Risk Poor oral hygiene: No service: No Sexual orientation: Straight/Heterosexual Meds Allergies Allergy/AdvReac Type Severity Reaction Status Date / Time mayonnaise [MAYONNAISE] Allergy Intermediate THROAT AND Verified 11/05/24 23:25 TONGUE ITCH quetiapine [From SEROQUEL] Allergy Intermediate DYSTONIA Verified 11/05/24 23:25 cat dander [CATS] Allergy Unknown WATERY Verified 11/05/24 23:25 EYES, SNEEZING dog dander [DOG] Allergy Unknown UNKNOWN Verified 11/05/24 23:25 paroxetine [From PAXIL] Allergy Unknown FLU LIKE Verified 11/05/24 23:25 SYMPTOMS penicillin V Allergy Unknown Unknown Verified 11/05/24 23:25 Penicillins [PENICILLINS] Allergy Unknown SWELLING Verified 11/05/24 23:25 SEAFOOD Allergy Severe DIFFICULTY Uncoded 11/05/24 23:25 BREATHING Active Medications: Current Medications Acetaminophen (Acetaminophen 325 Mg Tablet) 975 mg PO Q6H PRN PRN Reason: Headache/Pain, Scale 1-3 Al Hydroxide/Mg Hydroxide (Magnesium Hydrox/Alum Hydrox 30 Ml Oral.Susp) 30 ml PO Q6H PRN PRN Reason: Heartburn/Nausea Chlorpromazine HCl (Chlorpromazine Hcl 25 Mg Tablet) 150 mg PO Q6H PRN PRN Reason: Anxiety Last Admin: 11/17/24 20:40 Dose: 150 mg Fluoxetine HCl (Fluoxetine Hcl 20 Mg Capsule) 40 mg PO DAILY [facility] Last Admin: 11/17/24 08:46 Dose: 40 mg Gabapentin (Gabapentin 300 Mg Capsule) 300 mg PO TID [facility] Last Admin: 11/17/24 20:42 Dose: Not Given Hydroxyzine HCl (Hydroxyzine Hcl 25 Mg Tablet) 25 mg PO Q6H PRN PRN Reason: mild anxiety Lactated Ringer's (Lr) 1,000 mls @ 50 mls/hr IVCONT .Q20H [facility] Last Admin: 11/18/24 07:52 Dose: 50 mls/hr Ibuprofen (Ibuprofen 800 Mg Tablet) 800 mg PO Q8H PRN PRN Reason: Pain (Pain Scale 4-10) Last Admin: 11/17/24 20:40 Dose: 800 mg Magnesium Hydroxide (Milk Of Magnesia 30 Ml Oral.Susp) 30 ml PO DAILY PRN PRN Reason: Constipation Methadone HCl (Methadone Hcl 20 Mg/2 Ml Oral.Conc) 140 mg PO DAILY [facility] Last Admin: 11/17/24 07:57 Dose: 140 mg Naloxone HCl (Naloxone Hcl 0.4 Mg/Ml Vial) 0.04 mg IVPUSH Q5M PRN PRN Reason: Excessive sedation or RR < 8 Naloxone HCl (Naloxone Hcl 0.4 Mg/Ml Vial) 0.04 mg IVPUSH Q5M PRN PRN Reason: Excessive sedation or RR < 8 Nicotine Polacrilex (Nicotine Polacrilex 2 Mg Gum) 4 mg BUCCAL Q2H PRN PRN Reason: Nicotine Cravings Last Admin: 11/17/24 10:20 Dose: 4 mg Home Medications ?Medication ?Instructions ?Recorded ?Confirmed ?Last Taken ?Type methadone 10 mg/mL oral 140 mg PO DAILY 11/06/24 11/06/24 11/05/24 08:00 History concentrate (Methadose) Exam Height,Weight and Vital Signs: Height 5 ft 10 in Weight 83.915 kg Last Vital Signs Temp 98.9 F 11/18/24 07:49 Pulse 78 11/18/24 07:49 Resp 16 11/18/24 07:49 BP 131/80 11/18/24 07:49 Pulse Ox 98 11/18/24 07:49 O2 Del Method Room Air 11/18/24 07:49 O2 Flow Rate 2 11/15/24 07:56 Pertinent Lab Results Pertinent Lab Results: Laboratory Tests 11/06/24 11/13/24 00:51 09:59 Sodium 140 Potassium 4.3 Chloride 105 Carbon Dioxide 27 Anion Gap 12 Magnesium 2.1 Urine Opiates Screen POSITIVE H Ur Buprenorphine Scrn Not Detected Ur Oxycodone Screen Not Detected Urine Methadone Screen Positive H Urine Fentanyl Screen POSITIVE H Ur Barbiturates Screen Not Detected Ur Phencyclidine Scrn Not Detected Ur Amphetamines Screen Not Detected U Benzodiazepines Scrn Not Detected Urine Cocaine Screen POSITIVE H U Marijuana (THC) Screen Not Detected Ethyl Alcohol < 10 Airway Mallampati Class: II TM Dist: >3cm Neck ROM: Full Loose/Missing/Broken Teeth: No Heart: RRR Lungs: CTA Assessment and Plan Assessment Anesthesia Assessment: Anesthesia Plan Discussed and Chart Reviewed Final Anesthetic Review Family History of Problems with Anesthesia: Unobtainable History of Problems with Anesthesia: No NPO: Yes ASA Class: II Final Preanesthetic Review: Meds/Allgs Chart Reviewed, Consent Obtained/Reviewed and Anes Risks/Benef Reviewed Patient Risk: Low Procedure Risk: Intermediate Anesthetic Plan Anesthetic Plan: GA Disposition: Standard PACU
--- NOTE | 2024-11-18 08:50 | HO.PSYCHPN ---
Subjective Subjective Date of Service: 11/18/24 Reason For Visit: SI Interim History: calm, cooperative. reporting some anxiety this morning prior to ECT. states otherwise his mood has been improved over the weekend and no notable events or behaviors. per staff, c/o dep/anx. pacing, limited socialization. isolative. slept about 6 hours. feeling improved with ECT. Mental Status Exam Mental Status Exam Narrative: awake and alert. appropriately dressed and groomed. temporal wasting. cooperative. no PMA/PMR. speech nml rate, soft, decreased in amount. reduced prosody. thoughts linear and logical. affect constricted, hypo-intense, non-labile. mood a little anxious this morning. no SI/HI/AVH expressed. Diagnostics Vital Signs (24Hr): Vital Signs - 24 hr 11/17/24 20:00 11/18/24 07:49 11/18/24 08:15 Temperature 97.6 F 98.9 F 98.9 F Pulse Rate 69 78 93 Respiratory Rate 16 16 18 Blood Pressure 108/63 131/80 142/88 H Pulse Oximetry 96 98 96 Oxygen Delivery Method Room Air Room Air Nasal Cannula with ETCO2 Oxygen Flow Rate 2 11/18/24 08:20 11/18/24 08:25 11/18/24 08:30 Temperature Pulse Rate 93 104 H 100 Respiratory Rate 16 16 18 Blood Pressure 121/77 113/75 121/82 Pulse Oximetry 96 97 94 Oxygen Delivery Method Nasal Cannula with ETCO2 Nasal Cannula with ETCO2 Room Air Oxygen Flow Rate 2 2 11/18/24 08:45 Temperature 98.9 F Pulse Rate 84 Respiratory Rate 16 Blood Pressure 118/75 Pulse Oximetry 95 Oxygen Delivery Method Room Air Oxygen Flow Rate BMI result Body Mass Index 26.5 Labs 11/13/24 09:59 Imaging Radiology Impressions: ITS Impressions Chest X-Ray 11/11/24 11:30 IMPRESSION: 1. Slightly smaller layering left effusion with similar left base consolidation. 2. Right lung remains clear. Electronically signed by: Jackson Clancy MD 11/11/2024 11:42 AM EDT Medications Medications Current Medications Acetaminophen (Acetaminophen 325 Mg Tablet) 975 mg PO Q6H PRN PRN Reason: Headache/Pain, Scale 1-3 Al Hydroxide/Mg Hydroxide (Magnesium Hydrox/Alum Hydrox 30 Ml Oral.Susp) 30 ml PO Q6H PRN PRN Reason: Heartburn/Nausea Chlorpromazine HCl (Chlorpromazine Hcl 25 Mg Tablet) 150 mg PO Q6H PRN PRN Reason: Anxiety Last Admin: 11/17/24 20:40 Dose: 150 mg Fluoxetine HCl (Fluoxetine Hcl 20 Mg Capsule) 40 mg PO DAILY [facility] Last Admin: 11/17/24 08:46 Dose: 40 mg Gabapentin (Gabapentin 300 Mg Capsule) 300 mg PO TID [facility] Last Admin: 11/17/24 20:42 Dose: Not Given Hydroxyzine HCl (Hydroxyzine Hcl 25 Mg Tablet) 25 mg PO Q6H PRN PRN Reason: mild anxiety Lactated Ringer's (Lr) 1,000 mls @ 50 mls/hr IVCONT .Q20H [facility] Last Admin: 11/18/24 07:52 Dose: 50 mls/hr Ibuprofen (Ibuprofen 800 Mg Tablet) 800 mg PO Q8H PRN PRN Reason: Pain (Pain Scale 4-10) Last Admin: 11/17/24 20:40 Dose: 800 mg Magnesium Hydroxide (Milk Of Magnesia 30 Ml Oral.Susp) 30 ml PO DAILY PRN PRN Reason: Constipation Methadone HCl (Methadone Hcl 20 Mg/2 Ml Oral.Conc) 140 mg PO DAILY [facility] Last Admin: 11/17/24 07:57 Dose: 140 mg Naloxone HCl (Naloxone Hcl 0.4 Mg/Ml Vial) 0.04 mg IVPUSH Q5M PRN PRN Reason: Excessive sedation or RR < 8 Naloxone HCl (Naloxone Hcl 0.4 Mg/Ml Vial) 0.04 mg IVPUSH Q5M PRN PRN Reason: Excessive sedation or RR < 8 Nicotine Polacrilex (Nicotine Polacrilex 2 Mg Gum) 4 mg BUCCAL Q2H PRN PRN Reason: Nicotine Cravings Last Admin: 11/17/24 10:20 Dose: 4 mg Allergies Allergies Allergy/AdvReac Type Severity Reaction Status Date / Time mayonnaise [MAYONNAISE] Allergy Intermediate THROAT AND Verified 11/05/24 23:25 TONGUE ITCH quetiapine [From SEROQUEL] Allergy Intermediate DYSTONIA Verified 11/05/24 23:25 cat dander [CATS] Allergy Unknown WATERY Verified 11/05/24 23:25 EYES, SNEEZING dog dander [DOG] Allergy Unknown UNKNOWN Verified 11/05/24 23:25 paroxetine [From PAXIL] Allergy Unknown FLU LIKE Verified 11/05/24 23:25 SYMPTOMS penicillin V Allergy Unknown Unknown Verified 11/05/24 23:25 Penicillins [PENICILLINS] Allergy Unknown SWELLING Verified 11/05/24 23:25 SEAFOOD Allergy Severe DIFFICULTY Uncoded 11/05/24 23:25 BREATHING Assessment & Plan Assessment & Plan (1) MDD (major depressive disorder), recurrent episode: Status: Acute Code(s): F33.9 - Major depressive disorder, recurrent, unspecified (2) Preoperative cardiovascular examination: Status: Acute Code(s): Z01.810 - Encounter for preprocedural cardiovascular examination (3) Polysubstance (including opioids) dependence, daily use: Status: Acute Code(s): F11.20 - Opioid dependence, uncomplicated; F19.20 - Other psychoactive substance dependence, uncomplicated Plan 11/07: continue outpt medications. risk strat for ECT. ECT consult. plan for ECT. T/C section 35. 11/08: medically low risk for ECT. case d/w brandon, suitable for ECT. continue home medications and pneumonia Tx. pursuing insurance clearance for ECT. 11/09 continue tx. 11/10 continue tx. 11/11: no change in presentation. reports trials on the following medications: lithium, depakote, trileptal, gabapentin, prozac, paxil, zoloft, lexapro, abilify, thorazine, haldol, remeron, trazodone, clonidine, klonopin in various doses and combinations over the years. awaiting insurance approval for ECT, may start as soon as monday. repeat CXR due to continued c/o CP 2/2 pneumonia. 11/12: per repeat CXR, pleural effusion shrinking. CP remains. using incentive spirometer. PMA, temporal wasting, very anxious today with panic attacks per report. awaiting word from insurance re ECT. continue current mgmt otherwise. 11/13: approved for ECT, ECT #1 completed thismorning without incident. c/o anxiety, increase thorazine PRNs from 125 mg each to 200 mg each. HOLD gabapentin nights prior to ECT and mornings of. otherwise continue current mgmt. 11/14: guarded. patient reports he continues to feel the same as before ; denies SI. Patient reports he feels sore from ECT ; pt stated, my memory is fine now but it wasn't at first . per nursing, slept 9 hours. seen by cardiology; please see note. 11/15: reports he feels good, less ruminative, preoccupied, negativistic. ECT #2 completed today without incident. noted to be sedated, decrease thorazine PRNs from 200 mg each to 150 mg each and increase interval to Q6H from Q4H. continue to taper PRN thorazine as indicated over w/e. cardiology found nothing concerning in eval and recommended continued ECT. ECT #3 monday. 11/16: patient reports feeling good and having a little energy today ; pt stated, I'm not feeling as depressed and my body aches went away . denies SI/HI/VH/AH. per nursing, slept 8 hours. continue current tx plan 11/17: worried about where he will go after DC. continue tx plan. 11/18: ECT #3 completed without incident. some anxiety this morning, but mood remains improved from admission. continue current mgmt. Reason for continued inpatient stay Substantial Risk for: harm to self, inability to function and rapid decompensation Time Spent With Patient Time: Total time managing care of this patient today _35___ minutes.
[2024-11-18] MEDS: FLUoxetine HCl 20 MG CAPSULE 40 MG PO (09:10)
[2024-11-18] MEDS: Gabapentin 300 MG CAPSULE PO ×3 (09:10→20:16)
[2024-11-18] MEDS: methADONE HCl 20 MG/2 ML ORAL.CONC 140 MG PO (09:10)
[2024-11-18] MEDS: Nicotine Polacrilex 2 MG GUM 4 MG BUCCAL (10:01)
[2024-11-18] MEDS: chlorproMAZINE HCl 25 MG TABLET 150 MG PO (20:17)
[2024-11-19 07:32] VITALS: BP 135/73; PULSE 77; RESP 16; TEMP 36.6; O2SAT 97
[2024-11-19] MEDS: methADONE HCl 20 MG/2 ML ORAL.CONC 140 MG PO (07:43)
[2024-11-19] MEDS: FLUoxetine HCl 20 MG CAPSULE 40 MG PO (08:09)
[2024-11-19] MEDS: Gabapentin 300 MG CAPSULE PO ×3 (08:09→20:35)
[2024-11-19] MEDS: chlorproMAZINE HCl 25 MG TABLET 150 MG PO ×2 (09:01→20:35)
[2024-11-19] MEDS: Nicotine Polacrilex 2 MG GUM 4 MG BUCCAL (09:02)
--- NOTE | 2024-11-19 14:04 | P.PNPSI_ITS ---
Subjective Subjective Date of Service: 11/19/24 Reason For Visit: SI Interim History: continues feeling improved. no requests to change mgmt. per staff, taking meds. improved mood. slept eves and overnight. anxiety remains elevated. PRN thorazine. slept 8 hours. Mental Status Exam Mental Status Exam Narrative: awake and alert. appropriately dressed and groomed. temporal wasting. cooperative. no PMA/PMR. speech nml rate, soft, decreased in amount. reduced prosody. thoughts linear and logical. affect constricted, hypo-intense, non- labile. mood better. no SI/HI/AVH expressed. Diagnostics Vital Signs (24Hr): Vital Signs - 24 hr 11/18/24 20:00 11/19/24 07:32 Temperature 99 F 97.8 F Pulse Rate 66 77 Respiratory Rate 16 16 Blood Pressure 123/73 135/73 Pulse Oximetry 95 97 Oxygen Delivery Method Room Air Room Air BMI result Body Mass Index 26.5 Labs 11/13/24 09:59 Imaging Radiology Impressions: ITS Impressions Chest X-Ray 11/11/24 11:30 IMPRESSION: 1. Slightly smaller layering left effusion with similar left base consolidation. 2. Right lung remains clear. Electronically signed by: Jackson Clancy MD 11/11/2024 11:42 AM EDT RP Medications Medications Current Medications Acetaminophen (Acetaminophen 325 Mg Tablet) 975 mg PO Q6H PRN PRN Reason: Headache/Pain, Scale 1-3 Al Hydroxide/Mg Hydroxide (Magnesium Hydrox/Alum Hydrox 30 Ml Oral.Susp) 30 ml PO Q6H PRN PRN Reason: Heartburn/Nausea Chlorpromazine HCl (Chlorpromazine Hcl 25 Mg Tablet) 150 mg PO Q6H PRN PRN Reason: Anxiety Last Admin: 11/19/24 09:01 Dose: 150 mg Fluoxetine HCl (Fluoxetine Hcl 20 Mg Capsule) 40 mg PO DAILY [facility] Last Admin: 11/19/24 08:09 Dose: 40 mg Gabapentin (Gabapentin 300 Mg Capsule) 300 mg PO TID [facility] Last Admin: 11/19/24 08:09 Dose: 300 mg Hydroxyzine HCl (Hydroxyzine Hcl 25 Mg Tablet) 25 mg PO Q6H PRN PRN Reason: mild anxiety Ibuprofen (Ibuprofen 800 Mg Tablet) 800 mg PO Q8H PRN PRN Reason: Pain (Pain Scale 4-10) Last Admin: 11/17/24 20:40 Dose: 800 mg Magnesium Hydroxide (Milk Of Magnesia 30 Ml Oral.Susp) 30 ml PO DAILY PRN PRN Reason: Constipation Methadone HCl (Methadone Hcl 20 Mg/2 Ml Oral.Conc) 140 mg PO DAILY [facility] Last Admin: 11/19/24 07:43 Dose: 140 mg Nicotine Polacrilex (Nicotine Polacrilex 2 Mg Gum) 4 mg BUCCAL Q2H PRN PRN Reason: Nicotine Cravings Last Admin: 11/19/24 09:02 Dose: 4 mg Allergies Allergies Allergy/AdvReac Type Severity Reaction Status Date / Time mayonnaise [MAYONNAISE] Allergy Intermediate THROAT AND Verified 11/05/24 23:25 TONGUE ITCH quetiapine [From SEROQUEL] Allergy Intermediate DYSTONIA Verified 11/05/24 23:25 cat dander [CATS] Allergy Unknown WATERY Verified 11/05/24 23:25 EYES, SNEEZING dog dander [DOG] Allergy Unknown UNKNOWN Verified 11/05/24 23:25 paroxetine [From PAXIL] Allergy Unknown FLU LIKE Verified 11/05/24 23:25 SYMPTOMS penicillin V Allergy Unknown Unknown Verified 11/05/24 23:25 Penicillins [PENICILLINS] Allergy Unknown SWELLING Verified 11/05/24 23:25 SEAFOOD Allergy Severe DIFFICULTY Uncoded 11/05/24 23:25 BREATHING Assessment & Plan Assessment & Plan (1) MDD (major depressive disorder), recurrent episode: Status: Acute Code(s): F33.9 - Major depressive disorder, recurrent, unspecified (2) Preoperative cardiovascular examination: Status: Acute Code(s): Z01.810 - Encounter for preprocedural cardiovascular examination (3) Polysubstance (including opioids) dependence, daily use: Status: Acute Code(s): F11.20 - Opioid dependence, uncomplicated; F19.20 - Other psychoactive substance dependence, uncomplicated Plan 11/07: continue outpt medications. risk strat for ECT. ECT consult. plan for ECT. T/C section 35. 3/7: medically low risk for ECT. case d/w brandon, suitable for ECT. continue home medications and pneumonia Tx. pursuing insurance clearance for ECT. 11/09 continue tx. 11/10 continue tx. 11/11: no change in presentation. reports trials on the following medications: lithium, depakote, trileptal, gabapentin, prozac, paxil, zoloft, lexapro, abilify, thorazine, haldol, remeron, trazodone, clonidine, klonopin in various doses and combinations over the years. awaiting insurance approval for ECT, may start as soon as monday. repeat CXR due to continued c/o CP 2/2 pneumonia. 11/12: per repeat CXR, pleural effusion shrinking. CP remains. using incentive spirometer. PMA, temporal wasting, very anxious today with panic attacks per report. awaiting word from insurance re ECT. continue current mgmt otherwise. 11/13: approved for ECT, ECT #1 completed thismorning without incident. c/o anxiety, increase thorazine PRNs from 125 mg each to 200 mg each. HOLD gabapentin nights prior to ECT and mornings of. otherwise continue current mgmt. 11/14: guarded. patient reports he continues to feel the same as before ; denies SI. Patient reports he feels sore from ECT ; pt stated, my memory is fine now but it wasn't at first . per nursing, slept 9 hours. seen by cardiology; please see note. 11/15: reports he feels good, less ruminative, preoccupied, negativistic. ECT #2 completed today without incident. noted to be sedated, decrease thorazine PRNs from 200 mg each to 150 mg each and increase interval to Q6H from Q4H. continue to taper PRN thorazine as indicated over w/e. cardiology found nothing concerning in eval and recommended continued ECT. ECT #3 monday. 11/16: patient reports feeling good and having a little energy today ; pt stated, I'm not feeling as depressed and my body aches went away . denies SI/HI/VH/AH. per nursing, slept 8 hours. continue current tx plan 11/17: worried about where he will go after DC. continue tx plan. 11/18: ECT #3 completed without incident. some anxiety this morning, but mood remains improved from admission. continue current mgmt. 11/19: stable, less depressed, some anxiety. feels current regimen is appropriate. continue current mgmt. ECT #4 tomorrow. Reason for continued inpatient stay Substantial Risk for: harm to self, inability to function and rapid decompensation Time Spent With Patient Time: Total time managing care of this patient today __25__ minutes.
[2024-11-19 20:00] VITALS: BP 107/60; PULSE 67; RESP 16; TEMP 36.8; O2SAT 95
[2024-11-20] VITALS (9 sets, daily range): BP systolic 110–161; BP diastolic 62–98; PULSE 81–96; RESP 12–18; TEMP 36.6–36.9; O2SAT 95–97
--- NOTE | 2024-11-20 06:42 | MHC.SHP ---
Pre-Procedural Eval Section A - 24 Hr Update-Section A only Date of Service: 11/20/24 The patient is an INPATIENT: Yes Changes since office visit: Yes Patient answered all questions The patient has been examined within 24 hours of the surgical procedure. The History & Physical has been completed within 30 days and I have reviewed it.: Yes Section B - Complete if H&P > 30 days Chief Complaint: SI Allergies: Allergies Allergy/AdvReac Type Severity Reaction Status Date / Time mayonnaise [MAYONNAISE] Allergy Intermediate THROAT AND Verified 11/05/24 23:25 TONGUE ITCH quetiapine [From SEROQUEL] Allergy Intermediate DYSTONIA Verified 11/05/24 23:25 cat dander [CATS] Allergy Unknown WATERY Verified 11/05/24 23:25 EYES, SNEEZING dog dander [DOG] Allergy Unknown UNKNOWN Verified 11/05/24 23:25 paroxetine [From PAXIL] Allergy Unknown FLU LIKE Verified 11/05/24 23:25 SYMPTOMS penicillin V Allergy Unknown Unknown Verified 11/05/24 23:25 Penicillins [PENICILLINS] Allergy Unknown SWELLING Verified 11/05/24 23:25 SEAFOOD Allergy Severe DIFFICULTY Uncoded 11/05/24 23:25 BREATHING Plan I have reviewed the history and physical and performed a pertinent physical examination on my patient. No changes have occurred unless specified. Time Spent With Patient Time: Total time managing care of this patient today ____ minutes.
--- NOTE | 2024-11-20 06:51 | HO.ANESPROP2 ---
[facility] Active Problems Active Problems: All Active Problems Preoperative cardiovascular examination (Acute) MDD (major depressive disorder), recurrent episode (Acute) Depressive disorder (Acute) Pre-op evaluation (Acute) Pneumonia (Acute) Suicidal ideation (Acute) Depression with suicidal ideation (Acute) Traumatic hematoma of lower leg (Acute) Polysubstance (including opioids) dependence, daily use (Acute) Cocaine abuse (Acute) Substance induced mood disorder (Acute) Moderate benzodiazepine use disorder (Acute) Opioid use disorder, moderate, dependence (Acute) Asthma (Acute) Pulmonary nodules (Acute) PTSD (post-traumatic stress disorder) (Acute) Past Medical History Medical History (Updated 11/14/24 @ 09:23 by Raymond Greene MD) MDD (major depressive disorder), recurrent episode Fentanyl use disorder, severe Benzodiazepine abuse Cellulitis Depression Polysubstance abuse Knee cartilage, torn, right ACL (anterior cruciate ligament) rupture Asthma Hepatitis C Hepatitis C antibody positive in blood Family History Family History (Updated 11/14/24 @ 09:22 by Raymond Greene MD) Father No problems noted. Mother No problems noted. Family history of problems with anesthesia: Unobtainable Surgical History History of Problems with Anesthesia: No Social History Social History Household Members: None Household Members Other:: brother Housing: Homeless Do you presently have visiting nurse or other home services: No Unable to assess alcohol history related to: Unknown Alcohol intake: former Comment: pt on 5 min safety checks Patient Tobacco Use Status: Former Tobacco user Tobacco use type: Cigarette Cigarette Packs Per Day: 10 Cigarettes Per Day: 10 Years Smoked: 10 Smoked in Last 30 Days: Yes e-Cigarette/Vaping Use: Currently Using Patient Interested in Nicotine Replacement: Yes Second Hand Smoke Exposure: No Use of substances other than those prescribed or required for medical reasons: Yes Substance Use Type: Other Substance Use Type Other:: fentanyl Substance Use Frequency: Occasionally Last Used Substance: Just Prior to Admission Currently Displaying Signs/Symptoms of Drug Intoxication Withdrawal: No Any prior treatment program specific to substance use: Yes (methadone clinic) Have you been hit, kicked, punched, or otherwise hurt by someone within the past year? If so, by whom?: No Do you feel safe in your current relationship?: No Current Relationship Is there a partner from a previous relationship who is making you feel unsafe now?: No Are you made to feel afraid or neglected: No [employer] Healthcare Practices: orthodoxy Advance Directives: No Advance Directives Information Provided: Yes Do you have thoughts of harming others: None Do you have a plan to hurt others: No Plan Recently lost weight without trying: No Eating poorly because of decreased appetite: No Nutrition Risks: No Nutritional Risk Poor oral hygiene: No service: No Sexual orientation: Straight/Heterosexual Meds Allergies Allergy/AdvReac Type Severity Reaction Status Date / Time mayonnaise [MAYONNAISE] Allergy Intermediate THROAT AND Verified 11/05/24 23:25 TONGUE ITCH quetiapine [From SEROQUEL] Allergy Intermediate DYSTONIA Verified 11/05/24 23:25 cat dander [CATS] Allergy Unknown WATERY Verified 11/05/24 23:25 EYES, SNEEZING dog dander [DOG] Allergy Unknown UNKNOWN Verified 11/05/24 23:25 paroxetine [From PAXIL] Allergy Unknown FLU LIKE Verified 11/05/24 23:25 SYMPTOMS penicillin V Allergy Unknown Unknown Verified 11/05/24 23:25 Penicillins [PENICILLINS] Allergy Unknown SWELLING Verified 11/05/24 23:25 SEAFOOD Allergy Severe DIFFICULTY Uncoded 11/05/24 23:25 BREATHING Active Medications: Current Medications Acetaminophen (Acetaminophen 325 Mg Tablet) 975 mg PO Q6H PRN PRN Reason: Headache/Pain, Scale 1-3 Al Hydroxide/Mg Hydroxide (Magnesium Hydrox/Alum Hydrox 30 Ml Oral.Susp) 30 ml PO Q6H PRN PRN Reason: Heartburn/Nausea Chlorpromazine HCl (Chlorpromazine Hcl 25 Mg Tablet) 150 mg PO Q6H PRN PRN Reason: Anxiety Last Admin: 11/19/24 20:35 Dose: 150 mg Fluoxetine HCl (Fluoxetine Hcl 20 Mg Capsule) 40 mg PO DAILY [facility] Last Admin: 11/19/24 08:09 Dose: 40 mg Gabapentin (Gabapentin 300 Mg Capsule) 300 mg PO TID [facility] Last Admin: 11/19/24 20:35 Dose: 300 mg Hydroxyzine HCl (Hydroxyzine Hcl 25 Mg Tablet) 25 mg PO Q6H PRN PRN Reason: mild anxiety Ibuprofen (Ibuprofen 800 Mg Tablet) 800 mg PO Q8H PRN PRN Reason: Pain (Pain Scale 4-10) Last Admin: 11/17/24 20:40 Dose: 800 mg Magnesium Hydroxide (Milk Of Magnesia 30 Ml Oral.Susp) 30 ml PO DAILY PRN PRN Reason: Constipation Methadone HCl (Methadone Hcl 20 Mg/2 Ml Oral.Conc) 140 mg PO DAILY [facility] Last Admin: 11/19/24 07:43 Dose: 140 mg Nicotine Polacrilex (Nicotine Polacrilex 2 Mg Gum) 4 mg BUCCAL Q2H PRN PRN Reason: Nicotine Cravings Last Admin: 11/19/24 09:02 Dose: 4 mg Home Medications ?Medication ?Instructions ?Recorded ?Confirmed ?Last Taken ?Type methadone 10 mg/mL oral 140 mg PO DAILY 11/06/24 11/06/24 11/05/24 08:00 History concentrate (Methadose) Exam Height,Weight and Vital Signs: Height 5 ft 10 in Weight 83.915 kg Last Vital Signs Temp 98.4 F 11/20/24 06:39 Pulse 84 11/20/24 06:39 Resp 12 11/20/24 06:39 BP 127/82 11/20/24 06:39 Pulse Ox 96 11/20/24 06:39 O2 Del Method Room Air 11/20/24 06:39 O2 Flow Rate 2 11/18/24 08:25 Pertinent Lab Results Pertinent Lab Results: Laboratory Tests 11/06/24 11/13/24 00:51 09:59 Sodium 140 Potassium 4.3 Chloride 105 Carbon Dioxide 27 Anion Gap 12 Magnesium 2.1 Urine Opiates Screen POSITIVE H Ur Buprenorphine Scrn Not Detected Ur Oxycodone Screen Not Detected Urine Methadone Screen Positive H Urine Fentanyl Screen POSITIVE H Ur Barbiturates Screen Not Detected Ur Phencyclidine Scrn Not Detected Ur Amphetamines Screen Not Detected U Benzodiazepines Scrn Not Detected Urine Cocaine Screen POSITIVE H U Marijuana (THC) Screen Not Detected Ethyl Alcohol < 10 Airway Mallampati Class: II TM Dist: >3cm Neck ROM: Full Heart: rrr Lungs: cta Assessment and Plan Assessment Anesthesia Assessment: Anesthesia Plan Discussed and Chart Reviewed Final Anesthetic Review Family History of Problems with Anesthesia: Unobtainable History of Problems with Anesthesia: No NPO: Yes ASA Class: III Final Preanesthetic Review: No Changes in Pt Med Stat, Meds/Allgs Chart Reviewed and Consent Obtained/Reviewed Patient Risk: Intermediate Procedure Risk: Low Anesthetic Plan Anesthetic Plan: GA Disposition: Standard PACU
--- NOTE | 2024-11-20 07:36 | HO.ECTPROC ---
ECT Procedure Note Diagnosis/Treatment Date of Service: 11/20/24 Diagnosis: Major Depressive Disorder Previous ECT Date: 11/18/24 Current Treatment Number: 4 Treatment: Series Interval Clinical Notes: Pt with some improvement no c/o side effects . Tx rul changed to brevital with good effect Time: Total time managing care of this patient today ____ minutes. ECT Settings Device: THYMATRON DGx Electrode Placement: Right Unilateral Program/Pulse Width: 0.25 Energy Percent: 100 Seizure Duration By EEG (in seconds): 42 Medications Administration General Anesthetic: Methohexital (100) Muscle Relaxant: Succinylcholine (100) Ancillary Medications Analgesics: Torodol - Pre ECT (30) Miscillaneous Medications: Midazolam (2) Airway Management Airway Management: Bag Mask Ventilation Treatment Recommendations No Changes Recommended: No change Pt Tolerated Procedure w/o Issue: Yes
[2024-11-20] MEDS: methADONE HCl 20 MG/2 ML ORAL.CONC 140 MG PO (08:22)
[2024-11-20] MEDS: FLUoxetine HCl 20 MG CAPSULE 40 MG PO (08:23)
[2024-11-20] MEDS: Gabapentin 300 MG CAPSULE PO ×3 (08:23→22:22)
[2024-11-20] MEDS: Nicotine Polacrilex 2 MG GUM 4 MG BUCCAL (10:17)
--- NOTE | 2024-11-20 11:36 | HO.PSYCHPN ---
Subjective Subjective Date of Service: 11/20/24 Reason For Visit: SI Interim History: continues to feel well. ECT completed without incident. less depressed and anxious. some anxiety, still getting PRNs. per staff, brighter, taking meds. attended 1 group. sleping better. no SI/HI. isolative. some anxiety eves. slept 8 hours. Mental Status Exam Mental Status Exam Narrative: awake and alert. appropriately dressed and groomed. temporal wasting. cooperative. no PMA/PMR. speech nml rate, soft, decreased in amount. reduced prosody. thoughts linear and logical. affect flexible, normo-intense, non-labile. mood i feel good. everything's good. no SI/HI/AVH expressed. Diagnostics Vital Signs (24Hr): Vital Signs - 24 hr 11/19/24 20:00 11/20/24 06:39 11/20/24 07:40 Temperature 98.2 F 98.4 F 98.4 F Pulse Rate 67 84 81 Respiratory Rate 16 12 16 Blood Pressure 107/60 127/82 161/98 H Pulse Oximetry 95 96 95 Oxygen Delivery Method Room Air Room Air Room Air Oxygen Flow Rate 11/20/24 07:45 11/20/24 07:50 11/20/24 07:55 Temperature Pulse Rate 83 89 83 Respiratory Rate 12 12 12 Blood Pressure 110/64 116/62 124/78 Pulse Oximetry 96 95 96 Oxygen Delivery Method Nasal Cannula with ETCO2 Nasal Cannula with ETCO2 Room Air Oxygen Flow Rate 2 2 11/20/24 08:10 11/20/24 08:50 11/20/24 08:52 Temperature 98.4 F 98.4 F 98.4 F Pulse Rate 82 96 96 Respiratory Rate 16 18 18 Blood Pressure 119/80 130/76 130/76 Pulse Oximetry 96 97 97 Oxygen Delivery Method Room Air Room Air Oxygen Flow Rate BMI result Body Mass Index 26.5 Labs 11/13/24 09:59 Imaging Radiology Impressions: ITS Impressions Chest X-Ray 11/11/24 11:30 IMPRESSION: 1. Slightly smaller layering left effusion with similar left base consolidation. 2. Right lung remains clear. Electronically signed by: Jackson Clancy MD 11/11/2024 11:42 AM EDT Medications Medications Current Medications Acetaminophen (Acetaminophen 325 Mg Tablet) 975 mg PO Q6H PRN PRN Reason: Headache/Pain, Scale 1-3 Al Hydroxide/Mg Hydroxide (Magnesium Hydrox/Alum Hydrox 30 Ml Oral.Susp) 30 ml PO Q6H PRN PRN Reason: Heartburn/Nausea Chlorpromazine HCl (Chlorpromazine Hcl 25 Mg Tablet) 150 mg PO Q6H PRN PRN Reason: Anxiety Last Admin: 11/19/24 20:35 Dose: 150 mg Fluoxetine HCl (Fluoxetine Hcl 20 Mg Capsule) 40 mg PO DAILY [facility] Last Admin: 11/20/24 08:23 Dose: 40 mg Gabapentin (Gabapentin 300 Mg Capsule) 300 mg PO TID [facility] Last Admin: 11/20/24 08:23 Dose: 300 mg Hydroxyzine HCl (Hydroxyzine Hcl 25 Mg Tablet) 25 mg PO Q6H PRN PRN Reason: mild anxiety Ibuprofen (Ibuprofen 800 Mg Tablet) 800 mg PO Q8H PRN PRN Reason: Pain (Pain Scale 4-10) Last Admin: 11/17/24 20:40 Dose: 800 mg Magnesium Hydroxide (Milk Of Magnesia 30 Ml Oral.Susp) 30 ml PO DAILY PRN PRN Reason: Constipation Methadone HCl (Methadone Hcl 20 Mg/2 Ml Oral.Conc) 140 mg PO DAILY [facility] Last Admin: 11/20/24 08:22 Dose: 140 mg Nicotine Polacrilex (Nicotine Polacrilex 2 Mg Gum) 4 mg BUCCAL Q2H PRN PRN Reason: Nicotine Cravings Last Admin: 11/20/24 10:17 Dose: 4 mg Allergies Allergies Allergy/AdvReac Type Severity Reaction Status Date / Time mayonnaise [MAYONNAISE] Allergy Intermediate THROAT AND Verified 11/05/24 23:25 TONGUE ITCH quetiapine [From SEROQUEL] Allergy Intermediate DYSTONIA Verified 11/05/24 23:25 cat dander [CATS] Allergy Unknown WATERY Verified 11/05/24 23:25 EYES, SNEEZING dog dander [DOG] Allergy Unknown UNKNOWN Verified 11/05/24 23:25 paroxetine [From PAXIL] Allergy Unknown FLU LIKE Verified 11/05/24 23:25 SYMPTOMS penicillin V Allergy Unknown Unknown Verified 11/05/24 23:25 Penicillins [PENICILLINS] Allergy Unknown SWELLING Verified 11/05/24 23:25 SEAFOOD Allergy Severe DIFFICULTY Uncoded 11/05/24 23:25 BREATHING Assessment & Plan Assessment & Plan (1) MDD (major depressive disorder), recurrent episode: Status: Acute Code(s): F33.9 - Major depressive disorder, recurrent, unspecified (2) Preoperative cardiovascular examination: Status: Acute Code(s): Z01.810 - Encounter for preprocedural cardiovascular examination (3) Polysubstance (including opioids) dependence, daily use: Status: Acute Code(s): F11.20 - Opioid dependence, uncomplicated; F19.20 - Other psychoactive substance dependence, uncomplicated Plan 11/07: continue outpt medications. risk strat for ECT. ECT consult. plan for ECT. T/C section 35. 11/08: medically low risk for ECT. case d/w brandon, suitable for ECT. continue home medications and pneumonia Tx. pursuing insurance clearance for ECT. 11/09 continue tx. 11/10 continue tx. 11/11: no change in presentation. reports trials on the following medications: lithium, depakote, trileptal, gabapentin, prozac, paxil, zoloft, lexapro, abilify, thorazine, haldol, remeron, trazodone, clonidine, klonopin in various doses and combinations over the years. awaiting insurance approval for ECT, may start as soon as monday. repeat CXR due to continued c/o CP 2/2 pneumonia. 11/12: per repeat CXR, pleural effusion shrinking. CP remains. using incentive spirometer. PMA, temporal wasting, very anxious today with panic attacks per report. awaiting word from insurance re ECT. continue current mgmt otherwise. 11/13: approved for ECT, ECT #1 completed thismorning without incident. c/o anxiety, increase thorazine PRNs from 125 mg each to 200 mg each. HOLD gabapentin nights prior to ECT and mornings of. otherwise continue current mgmt. 11/14: guarded. patient reports he continues to feel the same as before ; denies SI. Patient reports he feels sore from ECT ; pt stated, my memory is fine now but it wasn't at first . per nursing, slept 9 hours. seen by cardiology; please see note. 11/15: reports he feels good, less ruminative, preoccupied, negativistic. ECT #2 completed today without incident. noted to be sedated, decrease thorazine PRNs from 200 mg each to 150 mg each and increase interval to Q6H from Q4H. continue to taper PRN thorazine as indicated over w/e. cardiology found nothing concerning in eval and recommended continued ECT. ECT #3 monday. 11/16: patient reports feeling good and having a little energy today ; pt stated, I'm not feeling as depressed and my body aches went away . denies SI/HI/VH/AH. per nursing, slept 8 hours. continue current tx plan 11/17: worried about where he will go after DC. continue tx plan. 11/18: ECT #3 completed without incident. some anxiety this morning, but mood remains improved from admission. continue current mgmt. 11/19: stable, less depressed, some anxiety. feels current regimen is appropriate. continue current mgmt. ECT #4 tomorrow. 11/20: ECT #4 completed, no issues. continues with improved dep/anx; better but not well. continue current mgmt. Reason for continued inpatient stay Substantial Risk for: harm to self, inability to function and rapid decompensation Time Spent With Patient Time: Total time managing care of this patient today __25__ minutes.
[2024-11-20] MEDS: chlorproMAZINE HCl 25 MG TABLET 150 MG PO (22:22)
[2024-11-21 07:00] VITALS: BMI 28.1
[2024-11-21 07:30] VITALS: BP 117/76; PULSE 90; RESP 16; TEMP 36.5; O2SAT 95
[2024-11-21] MEDS: methADONE HCl 20 MG/2 ML ORAL.CONC 140 MG PO (07:58)
[2024-11-21] MEDS: Gabapentin 300 MG CAPSULE PO ×2 (08:27→14:55)
[2024-11-21] MEDS: FLUoxetine HCl 20 MG CAPSULE 40 MG PO (08:27)
[2024-11-21] MEDS: Nicotine Polacrilex 2 MG GUM 4 MG BUCCAL (09:16)
--- NOTE | 2024-11-21 14:19 | P.PNPSI_ITS ---
Subjective Subjective Date of Service: 11/21/24 Reason For Visit: SI Interim History: calm, cooperative. thinks another few ECTs may be helpful. per staff, less dep/anx. attended a couple of groups. smiling, dancing in milieu. taking meds, thorazine PRN. slept 7 hours. Mental Status Exam Mental Status Exam Narrative: awake and alert. appropriately dressed and groomed. temporal wasting. cooperative. no PMA/PMR. speech nml rate, soft, decreased in amount. reduced prosody. thoughts linear and logical. affect flexible, normo-intense, non- labile. mood i feel good. no SI/HI/AVH expressed. Diagnostics Vital Signs (24Hr): Vital Signs - 24 hr 11/20/24 19:31 11/21/24 07:30 Temperature 97.8 F 97.7 F Pulse Rate 86 90 Respiratory Rate 16 16 Blood Pressure 117/84 117/76 Pulse Oximetry 96 95 Oxygen Delivery Method Room Air Room Air BMI result Body Mass Index 28.1 Labs 11/13/24 09:59 Imaging Radiology Impressions: ITS Impressions Chest X-Ray 11/11/24 11:30 IMPRESSION: 1. Slightly smaller layering left effusion with similar left base consolidation. 2. Right lung remains clear. Electronically signed by: Jackson Clancy MD 11/11/2024 11:42 AM EDT Medications Medications Current Medications Acetaminophen (Acetaminophen 325 Mg Tablet) 975 mg PO Q6H PRN PRN Reason: Headache/Pain, Scale 1-3 Al Hydroxide/Mg Hydroxide (Magnesium Hydrox/Alum Hydrox 30 Ml Oral.Susp) 30 ml PO Q6H PRN PRN Reason: Heartburn/Nausea Chlorpromazine HCl (Chlorpromazine Hcl 25 Mg Tablet) 150 mg PO Q6H PRN PRN Reason: Anxiety Last Admin: 11/20/24 22:22 Dose: 150 mg Fluoxetine HCl (Fluoxetine Hcl 20 Mg Capsule) 40 mg PO DAILY [facility] Last Admin: 11/21/24 08:27 Dose: 40 mg Gabapentin (Gabapentin 300 Mg Capsule) 300 mg PO TID [facility] Last Admin: 11/21/24 08:27 Dose: 300 mg Hydroxyzine HCl (Hydroxyzine Hcl 25 Mg Tablet) 25 mg PO Q6H PRN PRN Reason: mild anxiety Ibuprofen (Ibuprofen 800 Mg Tablet) 800 mg PO Q8H PRN PRN Reason: Pain (Pain Scale 4-10) Last Admin: 11/17/24 20:40 Dose: 800 mg Magnesium Hydroxide (Milk Of Magnesia 30 Ml Oral.Susp) 30 ml PO DAILY PRN PRN Reason: Constipation Methadone HCl (Methadone Hcl 20 Mg/2 Ml Oral.Conc) 140 mg PO DAILY [facility] Last Admin: 11/21/24 07:58 Dose: 140 mg Nicotine Polacrilex (Nicotine Polacrilex 2 Mg Gum) 4 mg BUCCAL Q2H PRN PRN Reason: Nicotine Cravings Last Admin: 11/21/24 09:16 Dose: 4 mg Allergies Allergies Allergy/AdvReac Type Severity Reaction Status Date / Time mayonnaise [MAYONNAISE] Allergy Intermediate THROAT AND Verified 11/05/24 23:25 TONGUE ITCH quetiapine [From SEROQUEL] Allergy Intermediate DYSTONIA Verified 11/05/24 23:25 cat dander [CATS] Allergy Unknown WATERY Verified 11/05/24 23:25 EYES, SNEEZING dog dander [DOG] Allergy Unknown UNKNOWN Verified 11/05/24 23:25 paroxetine [From PAXIL] Allergy Unknown FLU LIKE Verified 11/05/24 23:25 SYMPTOMS penicillin V Allergy Unknown Unknown Verified 11/05/24 23:25 Penicillins [PENICILLINS] Allergy Unknown SWELLING Verified 11/05/24 23:25 SEAFOOD Allergy Severe DIFFICULTY Uncoded 11/05/24 23:25 BREATHING Assessment & Plan Assessment & Plan (1) MDD (major depressive disorder), recurrent episode: Status: Acute Code(s): F33.9 - Major depressive disorder, recurrent, unspecified (2) Preoperative cardiovascular examination: Status: Acute Code(s): Z01.810 - Encounter for preprocedural cardiovascular examination (3) Polysubstance (including opioids) dependence, daily use: Status: Acute Code(s): F11.20 - Opioid dependence, uncomplicated; F19.20 - Other psychoactive substance dependence, uncomplicated Plan 11/07: continue outpt medications. risk strat for ECT. ECT consult. plan for ECT. T/C section 35. 3/7: medically low risk for ECT. case d/w brandon, suitable for ECT. continue home medications and pneumonia Tx. pursuing insurance clearance for ECT. 11/09 continue tx. 11/10 continue tx. 11/11: no change in presentation. reports trials on the following medications: lithium, depakote, trileptal, gabapentin, prozac, paxil, zoloft, lexapro, abilify, thorazine, haldol, remeron, trazodone, clonidine, klonopin in various doses and combinations over the years. awaiting insurance approval for ECT, may start as soon as monday. repeat CXR due to continued c/o CP 2/2 pneumonia. 11/12: per repeat CXR, pleural effusion shrinking. CP remains. using incentive spirometer. PMA, temporal wasting, very anxious today with panic attacks per report. awaiting word from insurance re ECT. continue current mgmt otherwise. 11/13: approved for ECT, ECT #1 completed thismorning without incident. c/o anxiety, increase thorazine PRNs from 125 mg each to 200 mg each. HOLD gabapentin nights prior to ECT and mornings of. otherwise continue current mgmt. 11/14: guarded. patient reports he continues to feel the same as before ; denies SI. Patient reports he feels sore from ECT ; pt stated, my memory is fine now but it wasn't at first . per nursing, slept 9 hours. seen by cardiology; please see note. 11/15: reports he feels good, less ruminative, preoccupied, negativistic. ECT #2 completed today without incident. noted to be sedated, decrease thorazine PRNs from 200 mg each to 150 mg each and increase interval to Q6H from Q4H. continue to taper PRN thorazine as indicated over w/e. cardiology found nothing concerning in eval and recommended continued ECT. ECT #3 monday. 11/16: patient reports feeling good and having a little energy today ; pt stated, I'm not feeling as depressed and my body aches went away . denies SI/HI/VH/AH. per nursing, slept 8 hours. continue current tx plan 11/17: worried about where he will go after DC. continue tx plan. 11/18: ECT #3 completed without incident. some anxiety this morning, but mood remains improved from admission. continue current mgmt. 11/19: stable, less depressed, some anxiety. feels current regimen is appropriate. continue current mgmt. ECT #4 tomorrow. 11/20: ECT #4 completed, no issues. continues with improved dep/anx; better but not well. continue current mgmt. 11/21: mood remains improved. ECT #5 tomorrow. Reason for continued inpatient stay Substantial Risk for: harm to self, inability to function and rapid decompensation Time Spent With Patient Time: Total time managing care of this patient today __25__ minutes.
[2024-11-21 19:11] VITALS: BP 122/81; PULSE 75; RESP 16; TEMP 36.8; O2SAT 96
[2024-11-22] VITALS (9 sets, daily range): BP systolic 107–151; BP diastolic 68–82; PULSE 62–872; RESP 14–17; TEMP 36.3–36.8; O2SAT 95–98
[2024-11-22] MEDS: Lactated Ringers 1,000 ML 100 ML IVCONT (08:28)
--- NOTE | 2024-11-22 08:48 | P.CONAN_ITS ---
HPI - Anesthesia Eval Consult details Narrative: 39yo male patient for ECT PMFSH Active Problems Active Problems: All Active Problems Preoperative cardiovascular examination (Acute) MDD (major depressive disorder), recurrent episode (Acute) Depressive disorder (Acute) Pre-op evaluation (Acute) Pneumonia (Acute) Suicidal ideation (Acute) Depression with suicidal ideation (Acute) Traumatic hematoma of lower leg (Acute) Polysubstance (including opioids) dependence, daily use (Acute) Cocaine abuse (Acute) Substance induced mood disorder (Acute) Moderate benzodiazepine use disorder (Acute) Opioid use disorder, moderate, dependence (Acute) Asthma (Acute) Pulmonary nodules (Acute) PTSD (post-traumatic stress disorder) (Acute) Past Medical History Medical History MDD (major depressive disorder), recurrent episode Fentanyl use disorder, severe Benzodiazepine abuse Cellulitis Depression Polysubstance abuse Knee cartilage, torn, right ACL (anterior cruciate ligament) rupture Asthma Hepatitis C Hepatitis C antibody positive in blood Family History Family History Father No problems noted. Mother No problems noted. Family history of problems with anesthesia: No Surgical History History of Problems with Anesthesia: No Social History Social History Household Members: None Household Members Other:: brother Housing: Homeless Do you presently have visiting nurse or other home services: No Unable to assess alcohol history related to: Unknown Alcohol intake: former Comment: pt on 5 min safety checks Patient Tobacco Use Status: Former Tobacco user Tobacco use type: Cigarette Cigarette Packs Per Day: 10 Cigarettes Per Day: 10 Years Smoked: 10 Smoked in Last 30 Days: Yes e-Cigarette/Vaping Use: Currently Using Patient Interested in Nicotine Replacement: Yes Second Hand Smoke Exposure: No Use of substances other than those prescribed or required for medical reasons: Yes Substance Use Type: Other Substance Use Type Other:: fentanyl Substance Use Frequency: Occasionally Last Used Substance: Just Prior to Admission Currently Displaying Signs/Symptoms of Drug Intoxication Withdrawal: No Any prior treatment program specific to substance use: Yes ([facility]) Have you been hit, kicked, punched, or otherwise hurt by someone within the past year? If so, by whom?: No Do you feel safe in your current relationship?: No Current Relationship Is there a partner from a previous relationship who is making you feel unsafe now?: No Are you made to feel afraid or neglected: No Synagogue Healthcare Practices: buddhism Advance Directives: No Advance Directives Information Provided: Yes Do you have thoughts of harming others: None Do you have a plan to hurt others: No Plan Recently lost weight without trying: No Eating poorly because of decreased appetite: No Nutrition Risks: No Nutritional Risk Poor oral hygiene: No service: No Sexual orientation: Straight/Heterosexual Meds Allergies Allergy/AdvReac Type Severity Reaction Status Date / Time mayonnaise [MAYONNAISE] Allergy Intermediate THROAT AND Verified 11/05/24 23:25 TONGUE ITCH quetiapine [From SEROQUEL] Allergy Intermediate DYSTONIA Verified 11/05/24 23:25 cat dander [CATS] Allergy Unknown WATERY Verified 11/05/24 23:25 EYES, SNEEZING dog dander [DOG] Allergy Unknown UNKNOWN Verified 11/05/24 23:25 paroxetine [From PAXIL] Allergy Unknown FLU LIKE Verified 11/05/24 23:25 SYMPTOMS penicillin V Allergy Unknown Unknown Verified 11/05/24 23:25 Penicillins [PENICILLINS] Allergy Unknown SWELLING Verified 11/05/24 23:25 SEAFOOD Allergy Severe DIFFICULTY Uncoded 11/05/24 23:25 BREATHING Active Medications: Current Medications Acetaminophen (Acetaminophen 325 Mg Tablet) 975 mg PO Q6H PRN PRN Reason: Headache/Pain, Scale 1-3 Al Hydroxide/Mg Hydroxide (Magnesium Hydrox/Alum Hydrox 30 Ml Oral.Susp) 30 ml PO Q6H PRN PRN Reason: Heartburn/Nausea Chlorpromazine HCl 100 mg/ (Chlorpromazine HCl 50 mg) 150 mg PO Q6H PRN PRN Reason: Anxiety Last Admin: 11/21/24 21:07 Dose: 150 mg Fluoxetine HCl (Fluoxetine Hcl 20 Mg Capsule) 40 mg PO DAILY GENARO Last Admin: 11/21/24 08:27 Dose: 40 mg Gabapentin (Gabapentin 300 Mg Capsule) 300 mg PO TID GENARO Last Admin: 11/21/24 20:06 Dose: Not Given Hydroxyzine HCl (Hydroxyzine Hcl 25 Mg Tablet) 25 mg PO Q6H PRN PRN Reason: mild anxiety Lactated Ringer's (Lr) 1,000 mls @ 100 mls/hr IVCONT .Q10H GENARO Last Admin: 11/22/24 08:28 Dose: 100 mls/hr Ibuprofen (Ibuprofen 800 Mg Tablet) 800 mg PO Q8H PRN PRN Reason: Pain (Pain Scale 4-10) Last Admin: 11/17/24 20:40 Dose: 800 mg Magnesium Hydroxide (Milk Of Magnesia 30 Ml Oral.Susp) 30 ml PO DAILY PRN PRN Reason: Constipation Methadone HCl (Methadone Hcl 20 Mg/2 Ml Oral.Conc) 140 mg PO DAILY [facility] Last Admin: 11/21/24 07:58 Dose: 140 mg Nicotine Polacrilex (Nicotine Polacrilex 2 Mg Gum) 4 mg BUCCAL Q2H PRN PRN Reason: Nicotine Cravings Last Admin: 11/21/24 09:16 Dose: 4 mg Home Medications ?Medication ?Instructions ?Recorded ?Confirmed ?Last Taken ?Type methadone 10 mg/mL oral 140 mg PO DAILY 11/06/24 11/06/24 11/05/24 08:00 History concentrate (Methadose) Exam Height,Weight and Vital Signs: Height 5 ft 10 in Weight 88.995 kg Last Vital Signs Temp 97.4 F 11/22/24 08:24 Pulse 83 11/22/24 08:24 Resp 16 11/22/24 08:24 BP 138/81 11/22/24 08:24 Pulse Ox 98 11/22/24 08:24 O2 Del Method Room Air 11/22/24 08:24 O2 Flow Rate 2 11/20/24 07:50 Pertinent Lab Results Pertinent Lab Results: Laboratory Tests 11/06/24 11/13/24 00:51 09:59 Sodium 140 Potassium 4.3 Chloride 105 Carbon Dioxide 27 Anion Gap 12 Magnesium 2.1 Urine Opiates Screen POSITIVE H Ur Buprenorphine Scrn Not Detected Ur Oxycodone Screen Not Detected Urine Methadone Screen Positive H Urine Fentanyl Screen POSITIVE H Ur Barbiturates Screen Not Detected Ur Phencyclidine Scrn Not Detected Ur Amphetamines Screen Not Detected U Benzodiazepines Scrn Not Detected Urine Cocaine Screen POSITIVE H U Marijuana (THC) Screen Not Detected Ethyl Alcohol < 10 Airway Mallampati Class: II (Small mouth) TM Dist: >3cm Neck ROM: Full Loose/Missing/Broken Teeth: Yes (Top front teeth chipped) Heart: RRR Lungs: CTAB Assessment and Plan Assessment Anesthesia Assessment: Anesthesia Plan Discussed and Chart Reviewed Final Anesthetic Review Family History of Problems with Anesthesia: No History of Problems with Anesthesia: No NPO: Yes ASA Class: III Final Preanesthetic Review: No Changes in Pt Med Stat, Meds/Allgs Chart Reviewed, Consent Obtained/Reviewed and Anes Risks/Benef Reviewed Patient Risk: Intermediate Procedure Risk: Intermediate Anesthetic Plan Anesthetic Plan: GA Disposition: Standard PACU and Inp. Admit - Standard Bed
[2024-11-22] MEDS: methADONE HCl 20 MG/2 ML ORAL.CONC 140 MG PO (10:39)
[2024-11-22] MEDS: FLUoxetine HCl 20 MG CAPSULE 40 MG PO (10:41)
[2024-11-22] MEDS: Gabapentin 300 MG CAPSULE PO ×3 (10:41→20:36)
[2024-11-22] MEDS: Ibuprofen 800 MG TABLET PO ×2 (11:56→20:36)
[2024-11-22] MEDS: hydrOXYzine HCL 25 MG TABLET PO ×2 (12:48→20:36)
--- NOTE | 2024-11-22 12:48 | HO.PSYCHPN ---
Subjective Subjective Date of Service: 11/22/24 Reason For Visit: SI Interim History: ECT completed without incident. no issues. planning for final ECT monday and then discharge. states he does not feel up for it re day program after discharge. planning to F/U at [facility] and get back to work doing [employer]. planning for monday midday discharge. Mental Status Exam Mental Status Exam Narrative: awake and alert. appropriately dressed and groomed. temporal wasting. cooperative. no PMA/PMR. speech nml rate, soft, decreased in amount. reduced prosody. thoughts linear and logical. affect constricted, normo-intense, non-labile. mood i feel better. no SI/HI/AVH expressed. Diagnostics Vital Signs (24Hr): Vital Signs - 24 hr 11/21/24 19:11 11/22/24 07:25 11/22/24 08:15 Temperature 98.2 F 97.6 F 97.6 F Pulse Rate 75 69 69 Respiratory Rate 16 14 14 Blood Pressure 122/81 121/69 121/69 Pulse Oximetry 96 98 98 Oxygen Delivery Method Room Air Room Air Oxygen Flow Rate 11/22/24 08:24 11/22/24 09:35 11/22/24 09:40 Temperature 97.4 F 98.1 F Pulse Rate 83 80 76 Respiratory Rate 16 17 14 Blood Pressure 138/81 151/82 H 125/78 Pulse Oximetry 98 95 96 Oxygen Delivery Method Room Air Nasal Cannula with ETCO2 Nasal Cannula with ETCO2 Oxygen Flow Rate 2 2 11/22/24 09:45 11/22/24 09:50 11/22/24 10:05 Temperature 98.1 F Pulse Rate 80 84 872 H Respiratory Rate 14 16 16 Blood Pressure 128/75 128/68 125/72 Pulse Oximetry 97 97 95 Oxygen Delivery Method Nasal Cannula with ETCO2 Nasal Cannula with ETCO2 Room Air Oxygen Flow Rate 2 2 BMI result Body Mass Index 28.1 Labs 11/13/24 09:59 Imaging Radiology Impressions: ITS Impressions Chest X-Ray 11/11/24 11:30 IMPRESSION: 1. Slightly smaller layering left effusion with similar left base consolidation. 2. Right lung remains clear. Electronically signed by: Jackson Clancy MD 11/11/2024 11:42 AM EDT Medications Medications Current Medications Acetaminophen (Acetaminophen 325 Mg Tablet) 975 mg PO Q6H PRN PRN Reason: Headache/Pain, Scale 1-3 Al Hydroxide/Mg Hydroxide (Magnesium Hydrox/Alum Hydrox 30 Ml Oral.Susp) 30 ml PO Q6H PRN PRN Reason: Heartburn/Nausea Chlorpromazine HCl 100 mg/ (Chlorpromazine HCl 50 mg) 150 mg PO Q6H PRN PRN Reason: Anxiety Last Admin: 11/21/24 21:07 Dose: 150 mg Fluoxetine HCl (Fluoxetine Hcl 20 Mg Capsule) 40 mg PO DAILY [facility] Last Admin: 11/22/24 10:41 Dose: 40 mg Gabapentin (Gabapentin 300 Mg Capsule) 300 mg PO TID [facility] Last Admin: 11/22/24 10:41 Dose: 300 mg Hydroxyzine HCl (Hydroxyzine Hcl 25 Mg Tablet) 25 mg PO Q6H PRN PRN Reason: mild anxiety Ibuprofen (Ibuprofen 800 Mg Tablet) 800 mg PO Q8H PRN PRN Reason: Pain (Pain Scale 4-10) Last Admin: 11/22/24 11:56 Dose: 800 mg Magnesium Hydroxide (Milk Of Magnesia 30 Ml Oral.Susp) 30 ml PO DAILY PRN PRN Reason: Constipation Methadone HCl (Methadone Hcl 20 Mg/2 Ml Oral.Conc) 140 mg PO DAILY [facility] Last Admin: 11/22/24 10:39 Dose: 140 mg Naloxone HCl (Naloxone Hcl 0.4 Mg/Ml Vial) 0.04 mg IVPUSH Q5M PRN PRN Reason: Excessive sedation or RR < 8 Nicotine Polacrilex (Nicotine Polacrilex 2 Mg Gum) 4 mg BUCCAL Q2H PRN PRN Reason: Nicotine Cravings Last Admin: 11/21/24 09:16 Dose: 4 mg Allergies Allergies Allergy/AdvReac Type Severity Reaction Status Date / Time mayonnaise [MAYONNAISE] Allergy Intermediate THROAT AND Verified 11/05/24 23:25 TONGUE ITCH quetiapine [From SEROQUEL] Allergy Intermediate DYSTONIA Verified 11/05/24 23:25 cat dander [CATS] Allergy Unknown WATERY Verified 11/05/24 23:25 EYES, SNEEZING dog dander [DOG] Allergy Unknown UNKNOWN Verified 11/05/24 23:25 paroxetine [From PAXIL] Allergy Unknown FLU LIKE Verified 11/05/24 23:25 SYMPTOMS penicillin V Allergy Unknown Unknown Verified 03/04/25 23:25 Penicillins [PENICILLINS] Allergy Unknown SWELLING Verified 11/05/24 23:25 SEAFOOD Allergy Severe DIFFICULTY Uncoded 11/05/24 23:25 BREATHING Assessment & Plan Assessment & Plan (1) MDD (major depressive disorder), recurrent episode: Status: Acute Code(s): F33.9 - Major depressive disorder, recurrent, unspecified (2) Preoperative cardiovascular examination: Status: Acute Code(s): Z01.810 - Encounter for preprocedural cardiovascular examination (3) Polysubstance (including opioids) dependence, daily use: Status: Acute Code(s): F11.20 - Opioid dependence, uncomplicated; F19.20 - Other psychoactive substance dependence, uncomplicated Plan 11/07: continue outpt medications. risk strat for ECT. ECT consult. plan for ECT. T/C section 35. 11/08: medically low risk for ECT. case d/w brandon, suitable for ECT. continue home medications and pneumonia Tx. pursuing insurance clearance for ECT. 11/09 continue tx. 11/10 continue tx. 11/11: no change in presentation. reports trials on the following medications: lithium, depakote, trileptal, gabapentin, prozac, paxil, zoloft, lexapro, abilify, thorazine, haldol, remeron, trazodone, clonidine, klonopin in various doses and combinations over the years. awaiting insurance approval for ECT, may start as soon as monday. repeat CXR due to continued c/o CP 2/2 pneumonia. 11/12: per repeat CXR, pleural effusion shrinking. CP remains. using incentive spirometer. PMA, temporal wasting, very anxious today with panic attacks per report. awaiting word from insurance re ECT. continue current mgmt otherwise. 11/13: approved for ECT, ECT #1 completed thismorning without incident. c/o anxiety, increase thorazine PRNs from 125 mg each to 200 mg each. HOLD gabapentin nights prior to ECT and mornings of. otherwise continue current mgmt. 11/14: guarded. patient reports he continues to feel the same as before ; denies SI. Patient reports he feels sore from ECT ; pt stated, my memory is fine now but it wasn't at first . per nursing, slept 9 hours. seen by cardiology; please see note. 11/15: reports he feels good, less ruminative, preoccupied, negativistic. ECT #2 completed today without incident. noted to be sedated, decrease thorazine PRNs from 200 mg each to 150 mg each and increase interval to Q6H from Q4H. continue to taper PRN thorazine as indicated over w/e. cardiology found nothing concerning in eval and recommended continued ECT. ECT #3 monday. 11/16: patient reports feeling good and having a little energy today ; pt stated, I'm not feeling as depressed and my body aches went away . denies SI/HI/VH/AH. per nursing, slept 8 hours. continue current tx plan 11/17: worried about where he will go after DC. continue tx plan. 11/18: ECT #3 completed without incident. some anxiety this morning, but mood remains improved from admission. continue current mgmt. 11/19: stable, less depressed, some anxiety. feels current regimen is appropriate. continue current mgmt. ECT #4 tomorrow. 11/20: ECT #4 completed, no issues. continues with improved dep/anx; better but not well. continue current mgmt. 11/21: mood remains improved. ECT #5 tomorrow. 11/22: ECT #5 completed without incident. planning for ECT #6 on monday and discharge later int he day monday with aftercare at [facility]. continue current mgmt otherwise for now. declining referral to PHP/IOP. Reason for continued inpatient stay Substantial Risk for: harm to self, inability to function and rapid decompensation Time Spent With Patient Time: Total time managing care of this patient today __35__ minutes.
[2024-11-22] MEDS: Nicotine Polacrilex 2 MG GUM 4 MG BUCCAL (12:56)
--- NOTE | 2024-11-22 22:51 | HO.ECTPROC ---
ECT Procedure Note Diagnosis/Treatment Date of Service: 11/22/24 Diagnosis: Major Depressive Disorder Previous ECT Date: 11/20/24 Current Treatment Number: 5 Treatment: Series Interval Clinical Notes: Pt with clear improvement no c/o side effects . Tx rul changed to brevital with good effect tx done as per last Time: Total time managing care of this patient today ____ minutes. ECT Settings Device: THYMATRON DGx Electrode Placement: Right Unilateral Program/Pulse Width: 0.25 Energy Percent: 100 Seizure Duration By EEG (in seconds): 38 Medications Administration General Anesthetic: Methohexital (100) Muscle Relaxant: Succinylcholine (100) Ancillary Medications Analgesics: Torodol - Pre ECT (30) Miscillaneous Medications: Midazolam (2) Airway Management Airway Management: Bag Mask Ventilation Treatment Recommendations No Changes Recommended: No change Pt Tolerated Procedure w/o Issue: Yes
[2024-11-23] MEDS: methADONE HCl 20 MG/2 ML ORAL.CONC 140 MG PO (08:04)
[2024-11-23 08:36] VITALS: BP 117/57; PULSE 74; RESP 16; TEMP 36.9; O2SAT 96
--- NOTE | 2024-11-23 08:57 | P.PNPSI_ITS ---
Subjective Subjective Date of Service: 11/23/24 Reason For Visit: SI Interim History: Feels ECT has been helpful for him. Mood improved. Feels medications are helpful. Asked for Lorazepam to be added to his regimen because anxiety isn't relieved by Thorazine and Hydroxyzine. Deferred decision to primary team. Planning for monday midday discharge after Monday ECT. Review of Systems Review of Systems Pt has no acute medical complaints at this time. Yes all other systems are reviewed and are negative Constitutional: Reports as per HPI and Reports no additional constitutional complaints Eyes: Reports as per HPI and Denies no additional eye complaints Denies system reviewed and no additional complaints, except as documented and Reports as per HPI Cardiovascular: Reports as per HPI, Reports no additional cardiovascular complaints, Denies acrocyanosis, Denies cool extremities, Denies chest pain, Denies leg edema, Denies lightheadedness, Denies palpitations and Denies dyspnea Respiratory: Reports as per HPI, Denies no additional respiratory complaints and Denies dyspnea Gastrointestinal: Reports as per HPI and Denies no additional gastrointestinal complaints Genitourinary: Reports no additional male genitourinary complaints and Reports as per HPI Musculoskeletal: Reports no additional musculoskeletal complaints and Reports as per HPI Skin/Breast: Reports system reviewed and no additional complaints, except as docu Reports system reviewed and no additional complaints, except as documented and Reports as per HPI Psychiatric: Reports no additional psychiatric complaints and Reports as per HPI Endocrine: Reports no additional endocrine complaints, Reports as per HPI and Denies palpitations Hematologic/Lymphatic: Reports no additional hematologic/lymphatic complaints and Reports as per HPI Allergic/Immunologic: Reports no additional allergic/immunologic complaints and Reports as per HPI Mental Status Exam Mental Status Exam Narrative: awake and alert. appropriately dressed and groomed. temporal wasting. cooperative. no PMA/PMR. speech nml rate, soft, decreased in amount. reduced prosody. thoughts linear and logical. affect constricted, normo-intense, non- labile. mood i feel better. no SI/HI/AVH expressed. Patient Appearance: Well Grooomed Patient Orientation: Person, Place, Time and Situation Level of Consciousness: Awake and Alert Patient Behavior: Appropriate, Cooperative and Good Eye Contact Mood Description: Calm Affect Description: Calm Ability to Follow Directions: Good Speech Pattern: Clear and Appropriate Memory Description: Intact Diagnostics Vital Signs (24Hr): Vital Signs - 24 hr 11/22/24 09:35 11/22/24 09:40 11/22/24 09:45 Temperature 98.1 F Pulse Rate 80 76 80 Respiratory Rate 17 14 14 Blood Pressure 151/82 H 125/78 128/75 Pulse Oximetry 95 96 97 Oxygen Delivery Method Nasal Cannula with ETCO2 Nasal Cannula with ETCO2 Nasal Cannula with ETCO2 Oxygen Flow Rate 2 2 2 11/22/24 09:50 11/22/24 10:05 11/22/24 20:00 Temperature 98.1 F 98.2 F Pulse Rate 84 872 H 62 Respiratory Rate 16 16 16 Blood Pressure 128/68 125/72 107/68 Pulse Oximetry 97 95 96 Oxygen Delivery Method Nasal Cannula with ETCO2 Room Air Room Air Oxygen Flow Rate 2 11/23/24 08:36 Temperature 98.5 F Pulse Rate 74 Respiratory Rate 16 Blood Pressure 117/57 L Pulse Oximetry 96 Oxygen Delivery Method Room Air Oxygen Flow Rate BMI result Body Mass Index 28.1 Labs 11/13/24 09:59 Imaging Radiology Impressions: ITS Impressions Chest X-Ray 11/11/24 11:30 IMPRESSION: 1. Slightly smaller layering left effusion with similar left base consolidation. 2. Right lung remains clear. Electronically signed by: Jackson Clancy MD 11/11/2024 11:42 AM EDT RP Medications Medications Current Medications Acetaminophen (Acetaminophen 325 Mg Tablet) 975 mg PO Q6H PRN PRN Reason: Headache/Pain, Scale 1-3 Al Hydroxide/Mg Hydroxide (Magnesium Hydrox/Alum Hydrox 30 Ml Oral.Susp) 30 ml PO Q6H PRN PRN Reason: Heartburn/Nausea Chlorpromazine HCl 100 mg/ (Chlorpromazine HCl 50 mg) 150 mg PO Q6H PRN PRN Reason: Anxiety Last Admin: 11/22/24 20:36 Dose: 150 mg Fluoxetine HCl (Fluoxetine Hcl 20 Mg Capsule) 40 mg PO DAILY [facility] Last Admin: 11/22/24 10:41 Dose: 40 mg Gabapentin (Gabapentin 300 Mg Capsule) 300 mg PO TID [facility] Last Admin: 11/22/24 20:36 Dose: 300 mg Hydroxyzine HCl (Hydroxyzine Hcl 25 Mg Tablet) 25 mg PO Q6H PRN PRN Reason: mild anxiety Last Admin: 11/22/24 20:36 Dose: 25 mg Ibuprofen (Ibuprofen 800 Mg Tablet) 800 mg PO Q8H PRN PRN Reason: Pain (Pain Scale 4-10) Last Admin: 11/22/24 20:36 Dose: 800 mg Magnesium Hydroxide (Milk Of Magnesia 30 Ml Oral.Susp) 30 ml PO DAILY PRN PRN Reason: Constipation Methadone HCl (Methadone Hcl 20 Mg/2 Ml Oral.Conc) 140 mg PO DAILY [facility] Last Admin: 11/23/24 08:04 Dose: 140 mg Naloxone HCl (Naloxone Hcl 0.4 Mg/Ml Vial) 0.04 mg IVPUSH Q5M PRN PRN Reason: Excessive sedation or RR < 8 Nicotine Polacrilex (Nicotine Polacrilex 2 Mg Gum) 4 mg BUCCAL Q2H PRN PRN Reason: Nicotine Cravings Last Admin: 11/22/24 12:56 Dose: 4 mg Allergies Allergies Allergy/AdvReac Type Severity Reaction Status Date / Time mayonnaise [MAYONNAISE] Allergy Intermediate THROAT AND Verified 11/05/24 23:25 TONGUE ITCH quetiapine [From SEROQUEL] Allergy Intermediate DYSTONIA Verified 11/05/24 23:25 cat dander [CATS] Allergy Unknown WATERY Verified 11/05/24 23:25 EYES, SNEEZING dog dander [DOG] Allergy Unknown UNKNOWN Verified 11/05/24 23:25 paroxetine [From PAXIL] Allergy Unknown FLU LIKE Verified 11/05/24 23:25 SYMPTOMS penicillin V Allergy Unknown Unknown Verified 11/05/24 23:25 Penicillins [PENICILLINS] Allergy Unknown SWELLING Verified 11/05/24 23:25 SEAFOOD Allergy Severe DIFFICULTY Uncoded 11/05/24 23:25 BREATHING Assessment & Plan Assessment & Plan (1) MDD (major depressive disorder), recurrent episode: Status: Acute Code(s): F33.9 - Major depressive disorder, recurrent, unspecified (2) Preoperative cardiovascular examination: Status: Acute Code(s): Z01.810 - Encounter for preprocedural cardiovascular examination (3) Polysubstance (including opioids) dependence, daily use: Status: Acute Code(s): F11.20 - Opioid dependence, uncomplicated; F19.20 - Other psychoactive substance dependence, uncomplicated Plan 6: continue outpt medications. risk strat for ECT. ECT consult. plan for ECT. T/C section 35. 3/7: medically low risk for ECT. case d/w brandon, suitable for ECT. continue home medications and pneumonia Tx. pursuing insurance clearance for ECT. 11/09 continue tx. 11/10 continue tx. 11/11: no change in presentation. reports trials on the following medications: lithium, depakote, trileptal, gabapentin, prozac, paxil, zoloft, lexapro, abilify, thorazine, haldol, remeron, trazodone, clonidine, klonopin in various doses and combinations over the years. awaiting insurance approval for ECT, may start as soon as monday. repeat CXR due to continued c/o CP 2/ pneumonia. 11/12: per repeat CXR, pleural effusion shrinking. CP remains. using incentive spirometer. PMA, temporal wasting, very anxious today with panic attacks per report. awaiting word from insurance re ECT. continue current mgmt otherwise. 11/13: approved for ECT, ECT #1 completed thismorning without incident. c/o anxiety, increase thorazine PRNs from 125 mg each to 200 mg each. HOLD gabapentin nights prior to ECT and mornings of. otherwise continue current mgmt. 11/14: guarded. patient reports he continues to feel the same as before ; denies SI. Patient reports he feels sore from ECT ; pt stated, my memory is fine now but it wasn't at first . per nursing, slept 9 hours. seen by cardiology; please see note. 11/15: reports he feels good, less ruminative, preoccupied, negativistic. ECT #2 completed today without incident. noted to be sedated, decrease thorazine PRNs from 200 mg each to 150 mg each and increase interval to Q6H from Q4H. continue to taper PRN thorazine as indicated over w/e. cardiology found nothing concerning in eval and recommended continued ECT. ECT #3 monday. 11/16: patient reports feeling good and having a little energy today ; pt stated, I'm not feeling as depressed and my body aches went away . denies SI/HI/VH/AH. per nursing, slept 8 hours. continue current tx plan 11/17: worried about where he will go after DC. continue tx plan. 11/18: ECT #3 completed without incident. some anxiety this morning, but mood remains improved from admission. continue current mgmt. 11/19: stable, less depressed, some anxiety. feels current regimen is appropriate. continue current mgmt. ECT #4 tomorrow. 11/20: ECT #4 completed, no issues. continues with improved dep/anx; better but not well. continue current mgmt. 11/21: mood remains improved. ECT #5 tomorrow. 11/22: ECT #5 completed without incident. planning for ECT #6 on monday and discharge later int monday with aftercare at [facility]. continue current mgmt otherwise for now. declining referral to PHP/IOP. 11/23: Continue current management and treatment plan. Reason for continued inpatient stay Substantial Risk for: inability to function and rapid decompensation Time Spent With Patient Time: Total time managing care of this patient today ____ minutes.
[2024-11-23] MEDS: FLUoxetine HCl 20 MG CAPSULE 40 MG PO (09:18)
[2024-11-23] MEDS: Gabapentin 300 MG CAPSULE PO ×3 (09:18→21:00)
[2024-11-23] MEDS: Nicotine Polacrilex 2 MG GUM 4 MG BUCCAL (10:08)
[2024-11-23 20:00] VITALS: BP 116/68; PULSE 73; RESP 14; TEMP 37.2; O2SAT 95
[2024-11-24] MEDS: methADONE HCl 20 MG/2 ML ORAL.CONC 140 MG PO (08:07)
[2024-11-24 08:23] VITALS: BP 121/72; PULSE 72; RESP 16; TEMP 36.7; O2SAT 96
[2024-11-24] MEDS: FLUoxetine HCl 20 MG CAPSULE 40 MG PO (08:38)
[2024-11-24] MEDS: Gabapentin 300 MG CAPSULE PO ×2 (08:38→15:17)
[2024-11-24] MEDS: Nicotine Polacrilex 2 MG GUM 4 MG BUCCAL (09:05)
--- NOTE | 2024-11-24 12:07 | HO.PSYCHPN ---
Subjective Subjective Date of Service: 11/24/24 Reason For Visit: SI Interim History: Patient reports ECT has been helpful. Mood improved. Plan for DC after ECT Monday. Denies SI/HI/AVH. Visible on the unit. Engaged. Review of Systems Review of Systems Pt has no acute medical complaints at this time. Yes all other systems are reviewed and are negative Constitutional: Reports as per HPI and Reports no additional constitutional complaints Eyes: Reports as per HPI and Denies no additional eye complaints Denies system reviewed and no additional complaints, except as documented and Reports as per HPI Cardiovascular: Reports as per HPI, Reports no additional cardiovascular complaints, Denies acrocyanosis, Denies cool extremities, Denies chest pain, Denies leg edema, Denies lightheadedness, Denies palpitations and Denies dyspnea Respiratory: Reports as per HPI, Denies no additional respiratory complaints and Denies dyspnea Gastrointestinal: Reports as per HPI and Denies no additional gastrointestinal complaints Genitourinary: Reports no additional male genitourinary complaints and Reports as per HPI Musculoskeletal: Reports no additional musculoskeletal complaints and Reports as per HPI Skin/Breast: Reports system reviewed and no additional complaints, except as docu Reports system reviewed and no additional complaints, except as documented and Reports as per HPI Psychiatric: Reports no additional psychiatric complaints and Reports as per HPI Endocrine: Reports no additional endocrine complaints, Reports as per HPI and Denies palpitations Hematologic/Lymphatic: Reports no additional hematologic/lymphatic complaints and Reports as per HPI Allergic/Immunologic: Reports no additional allergic/immunologic complaints and Reports as per HPI Mental Status Exam Mental Status Exam Narrative: awake and alert. appropriately dressed and groomed. temporal wasting. cooperative. no PMA/PMR. speech nml rate, soft, decreased in amount. reduced prosody. thoughts linear and logical. affect constricted, normo-intense, non-labile. mood i feel better. no SI/HI/AVH expressed. Patient Appearance: Well Grooomed Patient Orientation: Person, Place, Time and Situation Level of Consciousness: Awake and Alert Patient Behavior: Appropriate, Cooperative and Good Eye Contact Mood Description: Calm Affect Description: Calm Ability to Follow Directions: Good Speech Pattern: Clear and Appropriate Memory Description: Intact Diagnostics Vital Signs (24Hr): Vital Signs - 24 hr 11/23/24 20:00 11/24/24 08:23 Temperature 99 F 98.0 F Pulse Rate 73 72 Respiratory Rate 14 16 Blood Pressure 116/68 121/72 Pulse Oximetry 95 96 Oxygen Delivery Method Room Air Room Air BMI result Body Mass Index 28.1 Labs 11/13/24 09:59 Imaging Radiology Impressions: ITS Impressions Chest X-Ray 11/11/24 11:30 IMPRESSION: 1. Slightly smaller layering left effusion with similar left base consolidation. 2. Right lung remains clear. Electronically signed by: Jackson Clancy MD 11/11/2024 11:42 AM EDT Medications Medications Current Medications Acetaminophen (Acetaminophen 325 Mg Tablet) 975 mg PO Q6H PRN PRN Reason: Headache/Pain, Scale 1-3 Al Hydroxide/Mg Hydroxide (Magnesium Hydrox/Alum Hydrox 30 Ml Oral.Susp) 30 ml PO Q6H PRN PRN Reason: Heartburn/Nausea Chlorpromazine HCl 100 mg/ (Chlorpromazine HCl 50 mg) 150 mg PO Q6H PRN PRN Reason: Anxiety Last Admin: 11/23/24 21:00 Dose: 150 mg Fluoxetine HCl (Fluoxetine Hcl 20 Mg Capsule) 40 mg PO DAILY [facility] Last Admin: 11/24/24 08:38 Dose: 40 mg Gabapentin (Gabapentin 300 Mg Capsule) 300 mg PO TID [facility] Last Admin: 11/24/24 08:38 Dose: 300 mg Hydroxyzine HCl (Hydroxyzine Hcl 25 Mg Tablet) 25 mg PO Q6H PRN PRN Reason: mild anxiety Last Admin: 11/22/24 20:36 Dose: 25 mg Ibuprofen (Ibuprofen 800 Mg Tablet) 800 mg PO Q8H PRN PRN Reason: Pain (Pain Scale 4-10) Last Admin: 11/22/24 20:36 Dose: 800 mg Magnesium Hydroxide (Milk Of Magnesia 30 Ml Oral.Susp) 30 ml PO DAILY PRN PRN Reason: Constipation Methadone HCl (Methadone Hcl 20 Mg/2 Ml Oral.Conc) 140 mg PO DAILY [facility] Last Admin: 11/24/24 08:07 Dose: 140 mg Naloxone HCl (Naloxone Hcl 0.4 Mg/Ml Vial) 0.04 mg IVPUSH Q5M PRN PRN Reason: Excessive sedation or RR < 8 Nicotine Polacrilex (Nicotine Polacrilex 2 Mg Gum) 4 mg BUCCAL Q2H PRN PRN Reason: Nicotine Cravings Last Admin: 11/24/24 09:05 Dose: 4 mg Allergies Allergies Allergy/AdvReac Type Severity Reaction Status Date / Time mayonnaise [MAYONNAISE] Allergy Intermediate THROAT AND Verified 11/05/24 23:25 TONGUE ITCH quetiapine [From SEROQUEL] Allergy Intermediate DYSTONIA Verified 11/05/24 23:25 cat dander [CATS] Allergy Unknown WATERY Verified 11/05/24 23:25 EYES, SNEEZING dog dander [DOG] Allergy Unknown UNKNOWN Verified 11/05/24 23:25 paroxetine [From PAXIL] Allergy Unknown FLU LIKE Verified 11/05/24 23:25 SYMPTOMS penicillin V Allergy Unknown Unknown Verified 11/05/24 23:25 Penicillins [PENICILLINS] Allergy Unknown SWELLING Verified 11/05/24 23:25 SEAFOOD Allergy Severe DIFFICULTY Uncoded 11/05/24 23:25 BREATHING Assessment & Plan Assessment & Plan (1) MDD (major depressive disorder), recurrent episode: Status: Acute Code(s): F33.9 - Major depressive disorder, recurrent, unspecified (2) Preoperative cardiovascular examination: Status: Acute Code(s): Z01.810 - Encounter for preprocedural cardiovascular examination (3) Polysubstance (including opioids) dependence, daily use: Status: Acute Code(s): F11.20 - Opioid dependence, uncomplicated; F19.20 - Other psychoactive substance dependence, uncomplicated Plan 11/07: continue outpt medications. risk strat for ECT. ECT consult. plan for ECT. T/C section 35. 3/7: medically low risk for ECT. case d/w brandon, suitable for ECT. continue home medications and pneumonia Tx. pursuing insurance clearance for ECT. 11/09 continue tx. 11/10 continue tx. 11/11: no change in presentation. reports trials on the following medications: lithium, depakote, trileptal, gabapentin, prozac, paxil, zoloft, lexapro, abilify, thorazine, haldol, remeron, trazodone, clonidine, klonopin in various doses and combinations over the years. awaiting insurance approval for ECT, may start as soon as monday. repeat CXR due to continued c/o CP 2/2 pneumonia. 11/12: per repeat CXR, pleural effusion shrinking. CP remains. using incentive spirometer. PMA, temporal wasting, very anxious today with panic attacks per report. awaiting word from insurance re ECT. continue current mgmt otherwise. 11/13: approved for ECT, ECT #1 completed thismorning without incident. c/o anxiety, increase thorazine PRNs from 125 mg each to 200 mg each. HOLD gabapentin nights prior to ECT and mornings of. otherwise continue current mgmt. 11/14: guarded. patient reports he continues to feel the same as before ; denies SI. Patient reports he feels sore from ECT ; pt stated, my memory is fine now but it wasn't at first . per nursing, slept 9 hours. seen by cardiology; please see note. 11/15: reports he feels good, less ruminative, preoccupied, negativistic. ECT #2 completed today without incident. noted to be sedated, decrease thorazine PRNs from 200 mg each to 150 mg each and increase interval to Q6H from Q4H. continue to taper PRN thorazine as indicated over w/e. cardiology found nothing concerning in eval and recommended continued ECT. ECT #3 monday. 11/16: patient reports feeling good and having a little energy today ; pt stated, I'm not feeling as depressed and my body aches went away . denies SI/HI/VH/AH. per nursing, slept 8 hours. continue current tx plan 11/17: worried about where he will go after DC. continue tx plan. 11/18: ECT #3 completed without incident. some anxiety this morning, but mood remains improved from admission. continue current mgmt. 11/19: stable, less depressed, some anxiety. feels current regimen is appropriate. continue current mgmt. ECT #4 tomorrow. 11/20: ECT #4 completed, no issues. continues with improved dep/anx; better but not well. continue current mgmt. 11/21: mood remains improved. ECT #5 tomorrow. 11/22: ECT #5 completed without incident. planning for ECT #6 on monday and discharge later int day monday with aftercare at [facility]. continue current mgmt otherwise for now. declining referral to PHP/IOP. 11/23: Continue current management and treatment plan. 11/24: Continue current management and treatment plan. Reason for continued inpatient stay Substantial Risk for: harm to self, inability to function and rapid decompensation Time Spent With Patient Time: Total time managing care of this patient today ____ minutes.
[2024-11-24 20:00] VITALS: BP 128/68; PULSE 74; RESP 16; TEMP 36.8; O2SAT 96
--- NOTE | 2024-11-25 06:06 | PC.NURSE ---
Pt continues to refuse scheduled ECT today. Lucinda in PACU notified.
[2024-11-25 07:44] VITALS: BP 129/86; PULSE 75; RESP 16; TEMP 36.4; O2SAT 97
[2024-11-25] MEDS: methADONE HCl 20 MG/2 ML ORAL.CONC 140 MG PO (08:01)
[2024-11-25] MEDS: Gabapentin 300 MG CAPSULE PO (08:32)
[2024-11-25] MEDS: FLUoxetine HCl 20 MG CAPSULE 40 MG PO (08:32)
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
== END 2024-11-25 10:38 | disposition home or self-care (01) | DRG 751 ==
LOC: HO.ED 11-06 02:20 → HO.PADLT16 11-06 15:29
PROVIDERS: Psychiatry & Neurology Psychiatry; Admitting Provider Psychiatry & Neurology Psychiatry; Emergency Provider Emergency Medicine; Visit Provider Psychiatry & Neurology Psychiatry
PROC: GZB4ZZZ Other Electroconvulsive Therapy (ICD-10-PCS; CPT 90870; principal; 2024-11-13 07:30)
DX: F33.9 Major depressive disorder, recurrent, unspecified (principal); J18.9 Pneumonia, unspecified organism; R45.851 Suicidal ideations; F11.20 Opioid dependence, uncomplicated; I49.3 Ventricular premature depolarization; F14.10 Cocaine abuse, uncomplicated; J45.20 Mild intermittent asthma, uncomplicated; F43.12 Post-traumatic stress disorder, chronic; Z87.891 Personal history of nicotine dependence; Z79.899 Other long term (current) drug therapy
CPT/HCPCS: 36415; 71045; 80051; 80307; 83735; 90870; 93005; 93017; 93306; 99285; J0330; J1596; J1805; J1885; J2060; J2250; J2405; J2704; J7120; S9485

== ENCOUNTER → 2024-11-06 10:47 | Outpatient (BNV) | payer MEDICAID, SELFPAY | PROVIDERS: Emergency Provider Emergency Medicine; Visit Provider Internal Medicine Cardiovascular Disease | DX: R94.31 Abnormal electrocardiogram [ECG] [EKG] (principal) | CPT/HCPCS: 93010 ==

== ENCOUNTER 2024-11-06 14:54 | Outpatient (BNV) | payer MEDICAID, SELFPAY | END 2024-11-13 10:24 | PROVIDERS: Admitting Provider Psychiatry & Neurology Psychiatry; Emergency Provider Emergency Medicine; Visit Provider Internal Medicine | DX: I49.3 Ventricular premature depolarization (principal) | CPT/HCPCS: 93010 ==

== ENCOUNTER 2024-11-06 14:54 | Outpatient (BNV) | payer MEDICAID, SELFPAY | END 2024-11-11 11:30 | PROVIDERS: Admitting Provider Psychiatry & Neurology Psychiatry; Emergency Provider Emergency Medicine; Visit Provider Radiology Diagnostic Radiology | DX: J90 Pleural effusion, not elsewhere classified (principal) | CPT/HCPCS: 71045 ==

== ENCOUNTER 2024-11-06 14:54 | Outpatient (BNV) | payer MEDICAID, SELFPAY | END 2024-11-07 21:30 | PROVIDERS: Admitting Provider Psychiatry & Neurology Psychiatry; Emergency Provider Emergency Medicine; Visit Provider Internal Medicine Cardiovascular Disease | DX: R00.1 Bradycardia, unspecified (principal) | CPT/HCPCS: 93010 ==

== ENCOUNTER 2024-11-06 14:54 | Outpatient (BNV) | payer MEDICAID, SELFPAY | END 2024-11-14 08:52 | PROVIDERS: Admitting Provider Psychiatry & Neurology Psychiatry; Emergency Provider Emergency Medicine; Visit Provider Internal Medicine | DX: R94.31 Abnormal electrocardiogram [ECG] [EKG] (principal); R06.02 Shortness of breath; I49.3 Ventricular premature depolarization | CPT/HCPCS: 93016; 93018; 93320; 93350 ==

== ENCOUNTER → 2024-11-06 14:54 | Outpatient (BNV) | payer OTHER, SELFPAY | PROVIDERS: Admitting Provider Psychiatry & Neurology Psychiatry; Emergency Provider Emergency Medicine; Visit Provider Psychiatry & Neurology Psychiatry | DX: F32.2 Major depressive disorder, single episode, severe without psychotic features (principal); F14.10 Cocaine abuse, uncomplicated; R45.851 Suicidal ideations; F43.11 Post-traumatic stress disorder, acute; F11.20 Opioid dependence, uncomplicated | CPT/HCPCS: 99233 ==

== ENCOUNTER → 2024-11-06 14:54 | Outpatient (BNV) | payer MEDICAID, SELFPAY | PROVIDERS: Admitting Provider Psychiatry & Neurology Psychiatry; Emergency Provider Emergency Medicine; Visit Provider Internal Medicine | DX: Z01.810 Encounter for preprocedural cardiovascular examination (principal); F11.20 Opioid dependence, uncomplicated; F19.20 Other psychoactive substance dependence, uncomplicated; F33.9 Major depressive disorder, recurrent, unspecified | CPT/HCPCS: 99223 ==

== ENCOUNTER → 2024-11-06 14:54 | Outpatient (BNV) | payer OTHER, SELFPAY | PROVIDERS: Admitting Provider Psychiatry & Neurology Psychiatry; Emergency Provider Emergency Medicine; Visit Provider Psychiatry & Neurology Psychiatry | DX: F33.2 Major depressive disorder, recurrent severe without psychotic features (principal) | CPT/HCPCS: 90870 ==

== ENCOUNTER → 2024-11-06 14:54 | Outpatient (BNV) | payer MEDICAID, SELFPAY | PROVIDERS: Admitting Provider Psychiatry & Neurology Psychiatry; Emergency Provider Emergency Medicine; Visit Provider Student in an Organized Health Care Education/Training Program | DX: Z01.818 Encounter for other preprocedural examination (principal) | CPT/HCPCS: 99222 ==

== ENCOUNTER 2024-11-26 15:22 | Inpatient (IN) | payer MEDICAID, OTHER, SELFPAY ==
[2024-11-26 15:28] VITALS: BP 128/84; PULSE 93; RESP 16; TEMP 36.8; O2SAT 95; BMI 27.3
[2024-11-26 15:38] VITALS: RESP 16
--- NOTE | 2024-11-26 16:40 | ED_ITS ---
HPI - Psych General Chief Complaint: Psychiatric Symptoms Stated Complaint: SI Time Seen by Provider: 11/26/24 15:59 Source: patient Mode of arrival: ambulatory Limitations: no limitations History of Present Illness ED Provider: Amita Leung NP HPI Narrative: Patient is a 39-year-old male who presents emergency department for evaluation. He admits to being discharged from yesterday, he states ?I thought I was ready to go but I was not my anxiety is out of control and I can not function, I can not take care of myself, I am suicidal?. Admits to cocaine and fentanyl usage today, endorsing this to be an SI attempt. States he did not get his methadone today. He is requesting inpatient admission at this time as he feels this would be most beneficial to him. He denies homicidal ideations. He denies alcohol usage. Denies auditory or visual hallucinations Related Data Home Medications ?Medication ?Instructions ?Recorded ?Confirmed methadone 10 mg/mL oral 140 mg PO DAILY 11/06/24 11/26/24 concentrate (Methadose) Previous Rx's ?Medication ?Instructions ?Recorded chlorpromazine 50 mg tablet 150 mg (3 x 50 mg) PO BID PRN 11/25/24 Anxiety 30 days #180 tabs fluoxetine 20 mg capsule 40 mg (2 x 20 mg) PO DAILY 30 days 11/25/24 #60 caps gabapentin 300 mg capsule 300 mg PO TID 30 days #90 caps 11/25/24 naloxone 4 mg/actuation nasal 4 mg intranasal Q2M PRN opioid 11/25/24 spray (Narcan) overdose 1 day #2 ea nicotine (polacrilex) 2 mg gum 4 mg buccal Q2H PRN Nicotine 11/25/24 Cravings 30 days #100 ea Allergies Allergy/AdvReac Type Severity Reaction Status Date / Time mayonnaise [MAYONNAISE] Allergy Intermediate THROAT AND Verified 11/26/24 15:31 TONGUE ITCH quetiapine [From SEROQUEL] Allergy Intermediate DYSTONIA Verified 11/26/24 15:31 cat dander [CATS] Allergy Unknown WATERY Verified 11/26/24 15:31 EYES, SNEEZING dog dander [DOG] Allergy Unknown UNKNOWN Verified 11/26/24 15:31 paroxetine [From PAXIL] Allergy Unknown FLU LIKE Verified 11/26/24 15:31 SYMPTOMS penicillin V Allergy Unknown Unknown Verified 11/26/24 15:31 Penicillins [PENICILLINS] Allergy Unknown SWELLING Verified 11/26/24 15:31 SEAFOOD Allergy Severe DIFFICULTY Uncoded 11/05/24 23:25 BREATHING Review of Systems 2 Review of Systems: Yes all other systems are reviewed and are negative [facility] Past Medical History Attestation statement: The following information was validated with the patient. Source: old records reviewed Medical History MDD (major depressive disorder), recurrent episode Fentanyl use disorder, severe Benzodiazepine abuse Cellulitis Depression Polysubstance abuse Knee cartilage, torn, right ACL (anterior cruciate ligament) rupture Asthma Hepatitis C Hepatitis C antibody positive in blood Family History Family History Father No problems noted. Mother No problems noted. Social History Social History Household Members: None Household Members Other:: brother Housing: Homeless Do you presently have visiting nurse or other home services: No Unable to assess alcohol history related to: Unknown Alcohol intake: current Alcohol intake frequency: a few times a month Alcohol type: beer and hard liquor Comment: pt on 5 min safety checks Patient Tobacco Use Status: Former Tobacco user Tobacco use type: Cigarette Cigarette Packs Per Day: 10 Cigarettes Per Day: 10 Years Smoked: 10 Smoked in Last 30 Days: Yes e-Cigarette/Vaping Use: Currently Using Second Hand Smoke Exposure: No Use of substances other than those prescribed or required for medical reasons: Yes Substance Use Type: Crack/Cocaine, Heroin, IV Drugs and Opiates Substance Use Frequency: Chronic Longstanding Last Used Substance: Just Prior to Admission Advance Directives: No Advance Directives Information Provided: No service: No Sexual orientation: Straight/Heterosexual Physical Exam 2 Vital Signs: Vital Signs: Last Vital Signs Temp 98.3 F 11/26/24 15:28 Pulse 93 11/26/24 15:28 Resp 16 11/26/24 15:38 BP 128/84 11/26/24 15:28 Pulse Ox 95 11/26/24 15:28 O2 Del Method Room Air 11/26/24 15:28 BMI result Body Mass Index 27.3 Appearance: Alert.?Oriented to person, place and time. No acute distress.?Normal affect. Eyes: Pupils equal, round and reactive to light.? ENT: Pharynx normal.?? Neck: Normal inspection.? Neck supple.?? CVS: Heart sounds normal. Normal heart rate and rhythm.? Pulses normal.?? Respiratory: No respiratory distress.? Lung sounds clear to auscultation bilaterally?? Abdomen: Soft and non-tender. Normoactive bowel sounds. Skin: Skin warm and dry.? Normal skin color.? Extremities: No lower extremity edema.? Neuro: Moves all extremities spontaneously. Sensation intact bilaterally. CN II- XII intact. No focal neuro deficits. Ambulates with normal steady gait. Course Reevaluation(s) Reevaluation #1: Patient was evaluated by care team, deemed a dual diagnosis bed search at this time. Section 12 has been placed. Time: 19:15 Medications Administered Generic Name Dose Route Start Last Admin Trade Name Freq PRN Reason Stop Dose Admin Chlorpromazine HCl 150 mg 11/26/24 18:36 11/26/24 19:16 Chlorpromazine Hcl 25 Mg Tablet PO 150 mg BID PRN Administration Anxiety Medical Decision Making Medical Decision Making MDM Narrative: Patient is a 39-year-old male with past medical history of MDD, anxiety, polysubstance use, hepatitis-C, asthma who presents emergency department for evaluation, endorsing SI attempt today the overdose from cocaine and fentanyl as per HPI. Patient had recent inpatient psychiatric admission here 11/07/2024 - 11/25/2024, just discharged yesterday; MDD, polysubstance dependence, completed 5 courses of ECT, plan for discharge outpatient follow-up with [facility], outpatient psychiatry, and methadone clinic for continued 140 mg daily. Unfortunately, although he felt ready for discharge yesterday returns stating that he does not feel he is appropriate to be Ativan inpatient setting at this time as per HPI. He offers no physical complaints currently, it is physical examination is benign. Obtaining serum labs for medical clearance in addition to drug abuse screening, and will refer to care team for a safe disposition planning, placed in physician observation as per narrative below Differential Diagnosis Differential Diagnoses: The differential diagnosis associated with the presentation includes (See narrative above and below for further detail) Admission/Observation Consideration of admission/observation: Escalation of care including admission/observation considered Patient is being observed in the Emergency Department for depression and anxiety. Observation time was started at 16:42 on 11/26/2024.?The patient is currently stable and non-toxic appearing. Observation is being initiated in the Emergency Department to allow time to help differentiate if the patient's depression and anxiety is due to Substance Induced Mood Disorder and Anxiety versus Major Depressive Disorder, Bipolar Manjula, Bipolar Depression, and Schizophrenia. The patient will receive frequent psychiatric assessments from the provider as well as from nursing staff. The patient will also be monitored for the need of PRN agitation medications such as Haldol, Ativan, and Benadryl. Consult Healthcare Provider Management of the patient was discussed with: Behavioral Health Provider (CARE team) Lab Data MDM Lab Attestation statement: I reviewed the patient's lab results. CBC is without leukocytosis, has a mild anemia that does not meet transfusion criteria, no thrombocytopenia. No electrolyte derangement. No CYDNEY. LFTs overall unremarkable. Urinalysis is concentrated but no evidence of microscopic hematuria or infection. Toxicology is positive for opiates, methadone, fentanyl, and cocaine. Alcohol level nondetectable. 11/26/24 17:14 11/26/24 17:14 Labs: Lab Results 11/26/24 11/26/24 Range/Units 16:46 17:14 WBC 8.6 (4.8-10.8) X10*3/uL RBC 4.82 (4.60-5.80) X10*6/uL Hgb 13.2 L (14.0-18.0) g/dl Hct 38.5 L (42.0-52.0) % MCV 79.9 L (80.0-98.0) fL MCH 27.4 (27.0-33.0) pg MCHC 34.3 (31.0-36.0) g/dl RDW 14.1 (11.0-16.0) % Plt Count 228 D (160-400) X10*3/uL MPV 9.4 (9.4-12.4) fL Immature Gran % (Auto) 0.3 (0.0-0.4) % Neut % (Auto) 82.0 H (45-73) % Lymph % (Auto) 12.3 L (20-40) % Shannon % (Auto) 5.2 (2-11) % Eos % (Auto) 0.0 (0-4) % Baso % (Auto) 0.2 (0-2) % Lymph # (Auto) 1.1 L (1.2-4.9) X10*3/uL Shannon # (Auto) 0.5 (0.1-1.2) X10*3/uL Eos # (Auto) 0.0 (0.0-0.4) X10*3/uL Baso # (Auto) 0.0 (0.0-0.2) X10*3/uL Abs Immat Gran (auto) 0.03 (0.00-0.03) X10*3/uL Absolute Neuts (auto) 7.1 (2.0-8.3) x10*3/uL Absolute Nucleated RBC 0.000 (0.0-0.012) X10*3/uL Nucleated RBC % (auto) 0.0 (0.0-0.2) /100WBC Sodium 137 (135-145) mmol/L Potassium 4.3 (3.3-5.1) mmol/L Chloride 105 (96-108) mmol/L Carbon Dioxide 23 (22-29) mmol/L Anion Gap 13 (12-20) BUN 19 H (9-16) mg/dL Creatinine 0.86 (0.5-1.4) mg/dL Estim Creat Clear Calc 119.0 Estimated GFR > 60 Random Glucose 95 (60-115) mg/dL Calcium 9.5 (8.4-10.2) mg/dL Magnesium 2.2 (1.6-2.6) mg/dL Total Bilirubin 0.7 (0.0-1.0) mg/dL AST 70 H (5-37) U/L ALT 30 (0-40) U/L Alkaline Phosphatase 81 (39-117) U/L Total Protein 7.3 (6.5-8.0) g/dL Albumin 4.5 (3.5-5.0) g/dL Urine Color Dark Yellow Urine Appearance Clear Urine pH 5.5 (5.0-9.0) Ur Specific [place] >= 1.030 H (1.005-1.025) Urine Protein Trace (Neg-Trace) mg/dL Urine Glucose (UA) Negative (Negative) mg/dL Urine Ketones 15 (Negative) mg/dL Urine Blood Negative (Negative) Urine Nitrite Negative (Negative) Ur Leukocyte Esterase Negative (Negative) Salicylates < 5.0 L (15-30) mg/dL Urine Opiates Screen POSITIVE H (Not Detect) Ur Buprenorphine Scrn Not Detected (Not Detect) ng/mL Ur Oxycodone Screen Not Detected (Not Detect) ng/mL Urine Methadone Screen Positive H (Not Detect) ng/mL Urine Fentanyl Screen POSITIVE H (Not Detect) Acetaminophen < 3 (<30) mcg/mL Ur Barbiturates Screen Not Detected (Not Detect) Ur Phencyclidine Scrn Not Detected (Not Detect) Ur Amphetamines Screen Not Detected (Not Detect) U Benzodiazepines Scrn Not Detected (Not Detect) Urine Cocaine Screen POSITIVE H (Not Detect) U Marijuana (THC) Screen Not Detected (Not Detect) Ethyl Alcohol < 10 mg/dL External Record Review External record reviewed: Inpatient record and Outpatient record Discharge Plan Discharge Clinical Impression: Suicidal ideation, Polysubstance (including opioids) dependence, daily use Patient Disposition: Still a Patient Prescriptions: No Action methadone [Methadose] 10 mg/mL concentrate 140 mg PO DAILY Rx Instructions: Partial Fill upon patient request. fluoxetine 20 mg Capsule 40 mg PO DAILY 30 Days Qty: 60 0RF chlorpromazine 50 mg Tablet 150 mg PO BID PRN (Reason: Anxiety) 30 Days Qty: 180 0RF naloxone [Narcan] 4 mg/actuation spray,non-aerosol 4 mg intranasal Q2M PRN (Reason: opioid overdose) 1 Days Qty: 2 0RF Rx Instructions: spray 1 dose into ONE nostril; alternate nostrils w each dose until help arrives nicotine (polacrilex) 2 mg Gum 4 mg buccal Q2H PRN (Reason: Nicotine Cravings) 30 Days Qty: 100 0RF gabapentin 300 mg Capsule 300 mg PO TID 30 Days Qty: 90 0RF Interventions: [place]-Suicide Risk Severity Scale Last Done: 11/26/24 15:50 Print Language: Spanish
[2024-11-26 17:12] LABS: Appearance Urine Clear; Color Urine Dark Yellow; Glucose Urine UA Negative (Negative); Leukocyte Esterase Urine Negative (Negative); Nitrite Urine Negative (Negative); PH 5.5 (5.0-9.0); Specific Gravity - Urine >= 1.030 (1.005-1.025); Urine Blood Negative (Negative); Urine Ketones 15 mg/dL (Negative); Urine Protein Trace mg/dL (Neg-Trace)
[2024-11-26 17:16] LABS: Amphetamine Screen Urine Not Detected (Not Detect); Barbiturates, Urine Not Detected (Not Detect); Benzodiazepines Screen Urine Not Detected (Not Detect); Buprenorphine Scr Not Detected (Not Detect); Cannabinoid Screen Urine Not Detected (Not Detect); Cocaine Screen Urine POSITIVE (Not Detect); Fentanyl, urine POSITIVE (Not Detect); Methadone Screen, Urine Positive (Not Detect); Opiate Screen Urine POSITIVE (Not Detect); Oxycodone Screen Urine Not Detected (Not Detect); Phencyclidine Screen Urine Not Detected (Not Detect)
[2024-11-26 17:22] LABS: MANUAL DIFF FLAG NO
[2024-11-26 17:24] LABS: Basophils Percent Auto 0.2 % (0-2); Hematocrit 38.5 % (42.0-52.0); Hemoglobin 13.2 g/dl (14.0-18.0); Imm Gran Abs Auto 0.03 X10*3/uL (0.00-0.03); Imm Gran Pct Auto 0.3 % (0.0-0.4); Lymphocytes Absolute Auto 1.1 X10*3/uL (1.2-4.9); Lymphocytes Percent Auto 12.3 % (20-40); Mean Corpuscular HGB Conc 34.3 g/dl (31.0-36.0); Mean Corpuscular Hemoglobin 27.4 pg (27.0-33.0); Mean Corpuscular Volume 79.9 fL (80.0-98.0); Mean Platelet Volume 9.4 fL (9.4-12.4); Monocytes Absolute Auto 0.5 X10*3/uL (0.1-1.2); Monocytes Percent Auto 5.2 % (2-11); Neutrophils Absolute Auto 7.1 x10*3/uL (2.0-8.3); Platelet Count 228 X10*3/uL (160-400); Red Blood Count 4.82 X10*6/uL (4.60-5.80); Red Cell Distribution Width 14.1 % (11.0-16.0); White Blood Count 8.6 X10*3/uL (4.8-10.8)
[2024-11-26 17:39] LABS: Acetaminophen LAB < 3 mcg/mL (<30); Alanine Aminotransferase 30 U/L (0-40); Albumin Level 4.5 g/dL (3.5-5.0); Alkaline Phosphatase 81 U/L (39-117); Anion Gap 13 (12-20); Aspartate Amino Transferase 70 U/L (5-37); Bilirubin Total 0.7 mg/dL (0.0-1.0); Blood Urea Nitrogen 19 mg/dL (9-16); Calcium 9.5 mg/dL (8.4-10.2); Carbon Dioxide 23 mmol/L (22-29); Chloride 105 mmol/L (96-108); Estimated Glomerular Filt Rate > 60; Ethanol < 10 mg/dL; Glucose Random 95 mg/dL (60-115); Magnesium 2.2 mg/dL (1.6-2.6); Potassium 4.3 mmol/L (3.3-5.1); Salicylate < 5.0 mg/dL (15-30); Sodium 137 mmol/L (135-145); Total Protein 7.3 g/dL (6.5-8.0)
[2024-11-26] MEDS: chlorproMAZINE HCl 25 MG TABLET 150 MG PO (19:16)
--- NOTE | 2024-11-26 19:46 | PC.NURSE ---
patient appears to remain at rest presently respirations are even and unlabored patient appears in no distress.
[2024-11-26] MEDS: Gabapentin 300 MG CAPSULE PO (20:22)
--- NOTE | 2024-11-27 | ECG_ITS ---
Test Reason : MED CLEARANCE Blood Pressure : */* mmHG Vent. Rate : 70 BPM Atrial Rate : 70 BPM P-R Int : 152 ms QRS Dur : 72 ms QT Int : 448 ms P-R-T Axes : 61 31 54 degrees QTcB Int : 483 ms Normal sinus rhythm Prolonged QT Abnormal ECG When compared with ECG of 13-Nov-2024 10:24, No significant change was found Referred By: Julian Anaya Electronically Signed By: LAUREN CISNEROS MD
[2024-11-27 06:21] VITALS: BP 115/73; PULSE 79; RESP 17; TEMP 36.9; O2SAT 98
--- NOTE | 2024-11-27 07:25 | HE.PHANOTE ---
METHADONE Pt last received 140mg of methadone at [facility] on 11/25/24 @ 0801.
--- NOTE | 2024-11-27 07:31 | HE.PHANOTE ---
METHADONE Pt last received 140mg Methadone on 11/25/24 @ 0801 here at [facility]
[2024-11-27] MEDS: FLUoxetine HCl 20 MG CAPSULE 40 MG PO (08:25)
[2024-11-27] MEDS: methADONE HCl 20 MG/2 ML ORAL.CONC 140 MG PO (08:25)
[2024-11-27] MEDS: Gabapentin 300 MG CAPSULE PO ×3 (08:25→21:48)
--- NOTE | 2024-11-27 10:04 | PHA.MEDREC ---
Addendum entered by Marni Lindo RPh 11/27/24 10:17: reviewed by [facility]. Original Note: Pharmacy Consult ? Medication Reconciliation Pharmacy reviewed med rec done by nursing. Nurse use discharge packet from 11/25 to confirm med rec. I spoke with patient and he confirmed he is taking the medications and compliant with taking them. He last took them 2 days ago.
--- NOTE | 2024-11-27 11:30 | PC.NURSE ---
Patient resting comfortably at this time, respirations even & unlabored. Laying in bed watching TV. Inpatient bedsearch. Section 12. Care ongoing by this RN.
--- NOTE | 2024-11-27 13:07 | PC.NURSE ---
EKG completed for admission. Awaiting bed assignment.
--- NOTE | 2024-11-27 14:04 | PC.NURSE ---
Report given. Transferring to M3, room 322 shortly. Awaiting staff to transfer from ED to M3.
[2024-11-27 14:15] VITALS: BP 120/83; PULSE 97; RESP 16; TEMP 36.6; O2SAT 94
[2024-11-27 15:00] VITALS: BMI 25.9
[2024-11-27] MEDS: clonazePAM 1 MG TABLET PO ×2 (15:39→21:48)
--- NOTE | 2024-11-27 16:00 | PC.NURSE ---
Ridge was readmitted to M3 at 1413 from [facility] [place] Pod on CV for treatment of mood disorder and polysubstance abuse. Ridge was discharged from earlier this week, reports he became overwhelmed and suicidal the same day and attempted suicide by overdosing on fentanyl and cocaine. He was medically cleared in ED. No psychosis noted or reported Thought process is organized. He denies current ideation, plan or intent to harm others and will inform staff if he has intent to harm himself on the unit. Appetite is good with no recent weight change. Sleep is reportedly good. Focus is good. He denies medical issues and denies physical complaint.? Patient is unable to identify goal of admission.? Safety Checks are q 15 minutes.
[2024-11-27 20:00] VITALS: BP 129/67; PULSE 70; RESP 16; TEMP 36.5; O2SAT 95
[2024-11-27] MEDS: chlorproMAZINE HCl 25 MG TABLET 150 MG PO (21:48)
[2024-11-27] MEDS: Acetaminophen 325 MG TABLET 650 MG PO (21:52)
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
[2024-11-28] MEDS: methADONE HCl 20 MG/2 ML ORAL.CONC 140 MG PO (07:55)
[2024-11-28 08:35] VITALS: BP 134/81; PULSE 110; RESP 16; TEMP 36.4; O2SAT 97
[2024-11-28] MEDS: Gabapentin 300 MG CAPSULE PO ×3 (08:37→20:13)
[2024-11-28] MEDS: FLUoxetine HCl 20 MG CAPSULE 40 MG PO (08:37)
[2024-11-28] MEDS: clonazePAM 1 MG TABLET PO ×2 (08:37→20:13)
[2024-11-28] MEDS: Nicotine Polacrilex 2 MG GUM 4 MG BUCCAL (09:12)
[2024-11-28 09:36] VITALS: BMI 26.6
--- NOTE | 2024-11-28 13:28 | HO.PSYCHPN ---
Subjective Subjective Date of Service: 11/28/24 Reason For Visit: SI Interim History: slept well, decreased anxiety. no questions or complaints. feeling much better with klonopin. per staff, had thorazine and tylenol last night. slept 7 hours. Mental Status Exam Mental Status Exam Narrative: awake and alert. appropriately dressed and groomed. temporal wasting. cooperative. no PMA/PMR. speech nml rate, soft, decreased in amount. reduced prosody. thoughts linear and logical. affect constricted, normo-intense, non-labile. mood less anxious. no SI/HI/AVH expressed. Diagnostics Vital Signs (24Hr): Vital Signs - 24 hr 11/27/24 14:15 11/27/24 20:00 11/28/24 08:35 Temperature 97.8 F 97.7 F 97.5 F Pulse Rate 97 70 110 H Respiratory Rate 16 16 16 Blood Pressure 120/83 129/67 134/81 Pulse Oximetry 94 95 97 Oxygen Delivery Method Room Air Room Air Room Air BMI result Body Mass Index 26.6 Labs 11/26/24 17:14 11/26/24 17:14 Labs: Laboratory Results - last 48 hr 11/26/24 11/26/24 16:46 17:14 WBC 8.6 RBC 4.82 Hgb 13.2 L Hct 38.5 L MCV 79.9 L MCH 27.4 MCHC 34.3 RDW 14.1 Plt Count 228 D MPV 9.4 Immature Gran % (Auto) 0.3 Neut % (Auto) 82.0 H Lymph % (Auto) 12.3 L [place] % (Auto) 5.2 Eos % (Auto) 0.0 Baso % (Auto) 0.2 Lymph # (Auto) 1.1 L [place] # (Auto) 0.5 Eos # (Auto) 0.0 Baso # (Auto) 0.0 Abs Immat Gran (auto) 0.03 Absolute Neuts (auto) 7.1 Absolute Nucleated RBC 0.000 Nucleated RBC % (auto) 0.0 Sodium 137 Potassium 4.3 Chloride 105 Carbon Dioxide 23 Anion Gap 13 BUN 19 H Creatinine 0.86 Estim Creat Clear Calc 119.0 Estimated GFR > 60 Random Glucose 95 Calcium 9.5 Magnesium 2.2 Total Bilirubin 0.7 AST 70 H ALT 30 Alkaline Phosphatase 81 Total Protein 7.3 Albumin 4.5 Urine Color Dark Yellow Urine Appearance Clear Urine pH 5.5 Ur Specific [place] >= 1.030 H Urine Protein Trace Urine Glucose (UA) Negative Urine Ketones 15 Urine Blood Negative Urine Nitrite Negative Ur Leukocyte Esterase Negative Salicylates < 5.0 L Urine Opiates Screen POSITIVE H Ur Buprenorphine Scrn Not Detected Ur Oxycodone Screen Not Detected Urine Methadone Screen Positive H Urine Fentanyl Screen POSITIVE H Acetaminophen < 3 Ur Barbiturates Screen Not Detected Ur Phencyclidine Scrn Not Detected Ur Amphetamines Screen Not Detected U Benzodiazepines Scrn Not Detected Urine Cocaine Screen POSITIVE H U Marijuana (THC) Screen Not Detected Ethyl Alcohol < 10 Medications Medications Current Medications Acetaminophen (Acetaminophen 325 Mg Tablet) 650 mg PO Q6H PRN PRN Reason: Headache/Pain, Scale 1-10 Last Admin: 11/27/24 21:52 Dose: 650 mg Al Hydroxide/Mg Hydroxide (Magnesium Hydrox/Alum Hydrox 30 Ml Oral.Susp) 30 ml PO Q6H PRN PRN Reason: Heartburn/Nausea Chlorpromazine HCl (Chlorpromazine Hcl 25 Mg Tablet) 150 mg PO BID PRN PRN Reason: Anxiety Last Admin: 11/27/24 21:48 Dose: 150 mg Clonazepam (Clonazepam 1 Mg Tablet) 1 mg PO BID [facility] Last Admin: 11/28/24 08:37 Dose: 1 mg Fluoxetine HCl (Fluoxetine Hcl 20 Mg Capsule) 40 mg PO DAILY [facility] Last Admin: 11/28/24 08:37 Dose: 40 mg Gabapentin (Gabapentin 300 Mg Capsule) 300 mg PO TID [facility] Last Admin: 11/28/24 08:37 Dose: 300 mg Hydroxyzine HCl (Hydroxyzine Hcl 25 Mg Tablet) 25 mg PO Q6H PRN PRN Reason: mild anxiety Magnesium Hydroxide (Milk Of Magnesia 30 Ml Oral.Susp) 30 ml PO DAILY PRN PRN Reason: Constipation Methadone HCl (Methadone Hcl 20 Mg/2 Ml Oral.Conc) 140 mg PO DAILY@0800 [facility] Nicotine Polacrilex (Nicotine Polacrilex 2 Mg Gum) 4 mg BUCCAL Q2H PRN PRN Reason: Nicotine Cravings Last Admin: 11/28/24 09:12 Dose: 4 mg Trazodone HCl (Trazodone Hcl 50 Mg Tablet) 50 mg PO BEDTIME MRX1 PRN PRN Reason: Insomnia Allergies Allergies Allergy/AdvReac Type Severity Reaction Status Date / Time mayonnaise [MAYONNAISE] Allergy Intermediate THROAT AND Verified 11/26/24 15:31 TONGUE ITCH quetiapine [From SEROQUEL] Allergy Intermediate DYSTONIA Verified 11/26/24 15:31 cat dander [CATS] Allergy Unknown WATERY Verified 11/26/24 15:31 EYES, SNEEZING dog dander [DOG] Allergy Unknown UNKNOWN Verified 11/26/24 15:31 paroxetine [From PAXIL] Allergy Unknown FLU LIKE Verified 11/26/24 15:31 SYMPTOMS penicillin V Allergy Unknown Unknown Verified 11/26/24 15:31 Penicillins [PENICILLINS] Allergy Unknown SWELLING Verified 11/26/24 15:31 SEAFOOD Allergy Severe DIFFICULTY Uncoded 11/05/24 23:25 BREATHING Assessment & Plan Assessment & Plan (1) Depressive disorder: Status: Acute Code(s): F32.A - Depression, unspecified (2) Cocaine abuse: Status: Acute Code(s): F14.10 - Cocaine abuse, uncomplicated (3) Opioid use disorder, moderate, dependence: Status: Acute Code(s): F11.20 - Opioid dependence, uncomplicated Plan 11/27: continue prior regimen. add klonopin 1 mg BID with the expectation his utox will be benzo NEG at that dose and if he provides benzo POS utox after discharge he will be assumed to be abusing benzos. 11/28: feeling less anxious, believes klonopin has been very helpful. applying for section 35. check utox to verify pt is negative with klonopin 1 BID prescribed. Reason for continued inpatient stay Substantial Risk for: inability to function and rapid decompensation Time Spent With Patient Time: Total time managing care of this patient today __25__ minutes.
[2024-11-28 20:00] VITALS: RESP 18
[2024-11-29] MEDS: methADONE HCl 20 MG/2 ML ORAL.CONC 140 MG PO (07:56)
[2024-11-29 08:00] VITALS: BP 115/72; PULSE 80; RESP 14; TEMP 36.4; O2SAT 97
[2024-11-29 08:29] LABS: Amphetamine Screen Urine Not Detected (Not Detect); Barbiturates, Urine Not Detected (Not Detect); Benzodiazepines Screen Urine POSITIVE (Not Detect); Buprenorphine Scr Not Detected (Not Detect); Cannabinoid Screen Urine Not Detected (Not Detect); Cocaine Screen Urine POSITIVE (Not Detect); Fentanyl, urine POSITIVE (Not Detect); Methadone Screen, Urine Positive (Not Detect); Opiate Screen Urine POSITIVE (Not Detect); Oxycodone Screen Urine Not Detected (Not Detect); Phencyclidine Screen Urine Not Detected (Not Detect)
[2024-11-29] MEDS: Gabapentin 300 MG CAPSULE PO ×3 (08:30→20:08)
[2024-11-29] MEDS: clonazePAM 1 MG TABLET PO ×2 (08:30→20:08)
[2024-11-29] MEDS: FLUoxetine HCl 20 MG CAPSULE 40 MG PO (08:30)
[2024-11-29] MEDS: Nicotine Polacrilex 2 MG GUM 4 MG BUCCAL (08:32)
[2024-11-29] MEDS: chlorproMAZINE HCl 25 MG TABLET 150 MG PO (10:28)
--- NOTE | 2024-11-29 13:02 | P.PNPSI_ITS ---
Subjective Subjective Date of Service: 11/29/24 Reason For Visit: SI Interim History: stable presentation. slept well. feeling good mood-serrano. carvings yesterday for cocaine, states they come and go. none today. per staff, c/o cravings. slept 8 hours. Mental Status Exam Mental Status Exam Narrative: awake and alert. appropriately dressed and groomed. temporal wasting. cooperative. general PMR. speech nml rate, soft, decreased in amount. reduced prosody. thoughts linear and logical. affect constricted, normo-intense, non- labile. mood feeling good. no SI/HI/AVH expressed. Diagnostics Vital Signs (24Hr): Vital Signs - 24 hr 11/28/24 20:00 11/29/24 08:00 Temperature 97.5 F Pulse Rate 80 Respiratory Rate 18 14 Blood Pressure 115/72 Pulse Oximetry 97 Oxygen Delivery Method Room Air BMI result Body Mass Index 26.6 Labs 11/26/24 17:14 11/26/24 17:14 Labs: Laboratory Results - last 48 hr 11/29/24 08:12 Urine Opiates Screen POSITIVE H Ur Buprenorphine Scrn Not Detected Ur Oxycodone Screen Not Detected Urine Methadone Screen Positive H Urine Fentanyl Screen POSITIVE H Ur Barbiturates Screen Not Detected Ur Phencyclidine Scrn Not Detected Ur Amphetamines Screen Not Detected U Benzodiazepines Scrn POSITIVE H Urine Cocaine Screen POSITIVE H U Marijuana (THC) Screen Not Detected Medications Medications Current Medications Acetaminophen (Acetaminophen 325 Mg Tablet) 650 mg PO Q6H PRN PRN Reason: Headache/Pain, Scale 1-10 Last Admin: 11/27/24 21:52 Dose: 650 mg Al Hydroxide/Mg Hydroxide (Magnesium Hydrox/Alum Hydrox 30 Ml Oral.Susp) 30 ml PO Q6H PRN PRN Reason: Heartburn/Nausea Chlorpromazine HCl (Chlorpromazine Hcl 100 Mg Tablet) 150 mg PO BID PRN PRN Reason: Anxiety Clonazepam (Clonazepam 1 Mg Tablet) 1 mg PO BID [facility] Last Admin: 11/29/24 08:30 Dose: 1 mg Fluoxetine HCl (Fluoxetine Hcl 20 Mg Capsule) 40 mg PO DAILY [facility] Last Admin: 11/29/24 08:30 Dose: 40 mg Gabapentin (Gabapentin 300 Mg Capsule) 300 mg PO TID [facility] Last Admin: 11/29/24 08:30 Dose: 300 mg Hydroxyzine HCl (Hydroxyzine Hcl 25 Mg Tablet) 25 mg PO Q6H PRN PRN Reason: mild anxiety Magnesium Hydroxide (Milk Of Magnesia 30 Ml Oral.Susp) 30 ml PO DAILY PRN PRN Reason: Constipation Methadone HCl (Methadone Hcl 20 Mg/2 Ml Oral.Conc) 140 mg PO DAILY@0800 [facility] Last Admin: 11/29/24 07:56 Dose: 140 mg Nicotine Polacrilex (Nicotine Polacrilex 2 Mg Gum) 4 mg BUCCAL Q2H PRN PRN Reason: Nicotine Cravings Last Admin: 11/29/24 08:32 Dose: 4 mg Trazodone HCl (Trazodone Hcl 50 Mg Tablet) 50 mg PO BEDTIME MRX1 PRN PRN Reason: Insomnia Allergies Allergies Allergy/AdvReac Type Severity Reaction Status Date / Time mayonnaise [MAYONNAISE] Allergy Intermediate THROAT AND Verified 11/26/24 15:31 TONGUE ITCH quetiapine [From SEROQUEL] Allergy Intermediate DYSTONIA Verified 11/26/24 15:31 cat dander [CATS] Allergy Unknown WATERY Verified 11/26/24 15:31 EYES, SNEEZING dog dander [DOG] Allergy Unknown UNKNOWN Verified 11/26/24 15:31 paroxetine [From PAXIL] Allergy Unknown FLU LIKE Verified 11/26/24 15:31 SYMPTOMS penicillin V Allergy Unknown Unknown Verified 11/26/24 15:31 Penicillins [PENICILLINS] Allergy Unknown SWELLING Verified 11/26/24 15:31 SEAFOOD Allergy Severe DIFFICULTY Uncoded 11/05/24 23:25 BREATHING Assessment & Plan Assessment & Plan (1) Depressive disorder: Status: Acute Code(s): F32.A - Depression, unspecified (2) Cocaine abuse: Status: Acute Code(s): F14.10 - Cocaine abuse, uncomplicated (3) Opioid use disorder, moderate, dependence: Status: Acute Code(s): F11.20 - Opioid dependence, uncomplicated Plan 11/27: continue prior regimen. add klonopin 1 mg BID with the expectation his utox will be benzo NEG at that dose and if he provides benzo POS utox after discharge he will be assumed to be abusing benzos. 11/28: feeling less anxious, believes klonopin has been very helpful. applying for section 35. check utox to verify pt is negative with klonopin 1 BID prescribed. 11/29: [address]; pt unaware as of yet. c/o cravings for cocaine. stable. continue current mgmt. Reason for continued inpatient stay Substantial Risk for: harm to self, inability to function and rapid decompensation Time Spent With Patient Time: Total time managing care of this patient today __25__ minutes.
[2024-11-29 19:45] VITALS: BP 109/62; PULSE 65; RESP 15; TEMP 36.9; O2SAT 93
[2024-11-30 08:00] VITALS: BP 109/69; PULSE 68; RESP 16; TEMP 36.9; O2SAT 96
[2024-11-30] MEDS: methADONE HCl 20 MG/2 ML ORAL.CONC 140 MG PO (08:01)
[2024-11-30] MEDS: clonazePAM 1 MG TABLET PO ×2 (08:34→20:15)
[2024-11-30] MEDS: Gabapentin 300 MG CAPSULE PO ×2 (08:34→20:15)
[2024-11-30] MEDS: FLUoxetine HCl 20 MG CAPSULE 40 MG PO (08:35)
[2024-11-30] MEDS: Nicotine Polacrilex 2 MG GUM 4 MG BUCCAL (08:36)
--- NOTE | 2024-11-30 18:39 | P.PNPSI_ITS ---
Subjective Subjective Date of Service: 11/30/24 Reason For Visit: SI Interim History: lying in bed, awake and calm. reports he feel[s] good. denies anxiety or depression, states he's just relaxing and thinking. per staff, reported a little depression yesterday, as well as low anxiety. taking medds. blunted. dep 5 anx 5. SI vague. Mental Status Exam Mental Status Exam Narrative: awake and alert. appropriately dressed and groomed. temporal wasting. cooperative. general PMR. speech nml rate, soft, decreased in amount. reduced prosody. thoughts linear and logical. affect constricted, normo-intense, non- labile. mood feel good. no SI/HI/AVH expressed. Diagnostics Vital Signs (24Hr): Vital Signs - 24 hr 11/29/24 19:45 11/30/24 08:00 Temperature 98.5 F 98.5 F Pulse Rate 65 68 Respiratory Rate 15 16 Blood Pressure 109/62 109/69 Pulse Oximetry 93 96 Oxygen Delivery Method Room Air Room Air BMI result Body Mass Index 26.6 Labs 11/26/24 17:14 11/26/24 17:14 Labs: Laboratory Results - last 48 hr 11/29/24 08:12 Urine Opiates Screen POSITIVE H Ur Buprenorphine Scrn Not Detected Ur Oxycodone Screen Not Detected Urine Methadone Screen Positive H Urine Fentanyl Screen POSITIVE H Ur Barbiturates Screen Not Detected Ur Phencyclidine Scrn Not Detected Ur Amphetamines Screen Not Detected U Benzodiazepines Scrn POSITIVE H Urine Cocaine Screen POSITIVE H U Marijuana (THC) Screen Not Detected Medications Medications Current Medications Acetaminophen (Acetaminophen 325 Mg Tablet) 650 mg PO Q6H PRN PRN Reason: Headache/Pain, Scale 1-10 Last Admin: 11/27/24 21:52 Dose: 650 mg Al Hydroxide/Mg Hydroxide (Magnesium Hydrox/Alum Hydrox 30 Ml Oral.Susp) 30 ml PO Q6H PRN PRN Reason: Heartburn/Nausea Chlorpromazine HCl (Chlorpromazine Hcl 100 Mg Tablet) 150 mg PO BID PRN PRN Reason: Anxiety Clonazepam (Clonazepam 1 Mg Tablet) 1 mg PO BID [facility] Last Admin: 11/30/24 08:34 Dose: 1 mg Fluoxetine HCl (Fluoxetine Hcl 20 Mg Capsule) 40 mg PO DAILY [facility] Last Admin: 11/30/24 08:35 Dose: 40 mg Gabapentin (Gabapentin 300 Mg Capsule) 300 mg PO TID [facility] Last Admin: 11/30/24 18:33 Dose: Not Given Hydroxyzine HCl (Hydroxyzine Hcl 25 Mg Tablet) 25 mg PO Q6H PRN PRN Reason: mild anxiety Magnesium Hydroxide (Milk Of Magnesia 30 Ml Oral.Susp) 30 ml PO DAILY PRN PRN Reason: Constipation Methadone HCl (Methadone Hcl 20 Mg/2 Ml Oral.Conc) 140 mg PO DAILY@0800 [facility] Last Admin: 11/30/24 08:01 Dose: 140 mg Nicotine Polacrilex (Nicotine Polacrilex 2 Mg Gum) 4 mg BUCCAL Q2H PRN PRN Reason: Nicotine Cravings Last Admin: 11/30/24 08:36 Dose: 4 mg Trazodone HCl (Trazodone Hcl 50 Mg Tablet) 50 mg PO BEDTIME MRX1 PRN PRN Reason: Insomnia Allergies Allergies Allergy/AdvReac Type Severity Reaction Status Date / Time mayonnaise [MAYONNAISE] Allergy Intermediate THROAT AND Verified 11/26/24 15:31 TONGUE ITCH quetiapine [From SEROQUEL] Allergy Intermediate DYSTONIA Verified 11/26/24 15:31 cat dander [CATS] Allergy Unknown WATERY Verified 11/26/24 15:31 EYES, SNEEZING dog dander [DOG] Allergy Unknown UNKNOWN Verified 11/26/24 15:31 paroxetine [From PAXIL] Allergy Unknown FLU LIKE Verified 11/26/24 15:31 SYMPTOMS penicillin V Allergy Unknown Unknown Verified 11/26/24 15:31 Penicillins [PENICILLINS] Allergy Unknown SWELLING Verified 11/26/24 15:31 SEAFOOD Allergy Severe DIFFICULTY Uncoded 11/05/24 23:25 BREATHING Assessment & Plan Assessment & Plan (1) Depressive disorder: Status: Acute Code(s): F32.A - Depression, unspecified (2) Cocaine abuse: Status: Acute Code(s): F14.10 - Cocaine abuse, uncomplicated (3) Opioid use disorder, moderate, dependence: Status: Acute Code(s): F11.20 - Opioid dependence, uncomplicated Plan 11/27: continue prior regimen. add klonopin 1 mg BID with the expectation his utox will be benzo NEG at that dose and if he provides benzo POS utox after discharge he will be assumed to be abusing benzos. 11/28: feeling less anxious, believes klonopin has been very helpful. applying for section 35. check utox to verify pt is negative with klonopin 1 BID prescribed. 11/29: [address]; pt unaware as of yet. c/o cravings for cocaine. stable. continue current mgmt. 11/30: denies dep/anx. reports he is feeling well. continue current mgmt. Reason for continued inpatient stay Substantial Risk for: harm to self, inability to function and rapid decompensation Time Spent With Patient Time: Total time managing care of this patient today ____ minutes.
[2024-11-30 19:10] VITALS: BP 111/59; PULSE 74; RESP 16; TEMP 36.4; O2SAT 94
[2024-11-30] MEDS: chlorproMAZINE HCl 100 MG TABLET 150 MG PO (20:17)
[2024-12-01 07:36] VITALS: BP 117/60; PULSE 66; RESP 16; TEMP 37.2; O2SAT 96
[2024-12-01] MEDS: methADONE HCl 20 MG/2 ML ORAL.CONC 140 MG PO (08:02)
[2024-12-01] MEDS: clonazePAM 1 MG TABLET PO (08:17)
[2024-12-01] MEDS: FLUoxetine HCl 20 MG CAPSULE 40 MG PO (08:17)
[2024-12-01] MEDS: Gabapentin 300 MG CAPSULE PO ×3 (08:18→20:39)
[2024-12-01] MEDS: chlorproMAZINE HCl 100 MG TABLET 150 MG PO ×2 (08:46→20:37)
[2024-12-01] MEDS: Nicotine Polacrilex 2 MG GUM 4 MG BUCCAL (08:46)
[2024-12-01 20:00] VITALS: BP 104/54; PULSE 64; RESP 16; TEMP 37; O2SAT 95
--- NOTE | 2024-12-01 20:06 | P.PNPSI_ITS ---
Subjective Subjective Date of Service: 12/01/24 Reason For Visit: SI Interim History: no change in presentation. states he is doing fine. napping, no issues. per staff, c/o dep/anx. blunted. refused evening gabapentin. dep 3 anx 2 eves. thorazine PRN eves. slept 8 hours. Mental Status Exam Mental Status Exam Narrative: awake and alert. appropriately dressed and groomed. temporal wasting. cooperative. general PMR. speech nml rate, soft, decreased in amount. reduced prosody. thoughts linear and logical. affect constricted, normo-intense, non- labile. mood feel good. no SI/HI/AVH expressed. Diagnostics Vital Signs (24Hr): Vital Signs - 24 hr 12/01/24 07:36 Temperature 99.0 F Pulse Rate 66 Respiratory Rate 16 Blood Pressure 117/60 Pulse Oximetry 96 Oxygen Delivery Method Room Air BMI result Body Mass Index 26.6 Labs 11/26/24 17:14 11/26/24 17:14 Medications Medications Current Medications Acetaminophen (Acetaminophen 325 Mg Tablet) 650 mg PO Q6H PRN PRN Reason: Headache/Pain, Scale 1-10 Last Admin: 11/27/24 21:52 Dose: 650 mg Al Hydroxide/Mg Hydroxide (Magnesium Hydrox/Alum Hydrox 30 Ml Oral.Susp) 30 ml PO Q6H PRN PRN Reason: Heartburn/Nausea Chlorpromazine HCl (Chlorpromazine Hcl 100 Mg Tablet) 150 mg PO BID PRN PRN Reason: Anxiety Last Admin: 12/01/24 08:46 Dose: 150 mg Clonazepam (Clonazepam 1 Mg Tablet) 1 mg PO BID [facility] Last Admin: 12/01/24 08:17 Dose: 1 mg Fluoxetine HCl (Fluoxetine Hcl 20 Mg Capsule) 40 mg PO DAILY [facility] Last Admin: 12/01/24 08:17 Dose: 40 mg Gabapentin (Gabapentin 300 Mg Capsule) 300 mg PO TID [facility] Last Admin: 12/01/24 15:40 Dose: 300 mg Hydroxyzine HCl (Hydroxyzine Hcl 25 Mg Tablet) 25 mg PO Q6H PRN PRN Reason: mild anxiety Magnesium Hydroxide (Milk Of Magnesia 30 Ml Oral.Susp) 30 ml PO DAILY PRN PRN Reason: Constipation Methadone HCl (Methadone Hcl 20 Mg/2 Ml Oral.Conc) 140 mg PO DAILY@0800 [facility] Last Admin: 12/01/24 08:02 Dose: 140 mg Nicotine Polacrilex (Nicotine Polacrilex 2 Mg Gum) 4 mg BUCCAL Q2H PRN PRN Reason: Nicotine Cravings Last Admin: 12/01/24 08:46 Dose: 4 mg Trazodone HCl (Trazodone Hcl 50 Mg Tablet) 50 mg PO BEDTIME MRX1 PRN PRN Reason: Insomnia Allergies Allergies Allergy/AdvReac Type Severity Reaction Status Date / Time mayonnaise [MAYONNAISE] Allergy Intermediate THROAT AND Verified 11/26/24 15:31 TONGUE ITCH quetiapine [From SEROQUEL] Allergy Intermediate DYSTONIA Verified 11/26/24 15:31 cat dander [CATS] Allergy Unknown WATERY Verified 11/26/24 15:31 EYES, SNEEZING dog dander [DOG] Allergy Unknown UNKNOWN Verified 11/26/24 15:31 paroxetine [From PAXIL] Allergy Unknown FLU LIKE Verified 11/26/24 15:31 SYMPTOMS penicillin V Allergy Unknown Unknown Verified 11/26/24 15:31 Penicillins [PENICILLINS] Allergy Unknown SWELLING Verified 11/26/24 15:31 SEAFOOD Allergy Severe DIFFICULTY Uncoded 11/05/24 23:25 BREATHING Assessment & Plan Assessment & Plan (1) Depressive disorder: Status: Acute Code(s): F32.A - Depression, unspecified (2) Cocaine abuse: Status: Acute Code(s): F14.10 - Cocaine abuse, uncomplicated (3) Opioid use disorder, moderate, dependence: Status: Acute Code(s): F11.20 - Opioid dependence, uncomplicated Plan 11/27: continue prior regimen. add klonopin 1 mg BID with the expectation his utox will be benzo NEG at that dose and if he provides benzo POS utox after discharge he will be assumed to be abusing benzos. 11/28: feeling less anxious, believes klonopin has been very helpful. applying for section 35. check utox to verify pt is negative with klonopin 1 BID prescribed. 11/29: [address]; pt unaware as of yet. c/o cravings for cocaine. stable. continue current mgmt. 11/30: denies dep/anx. reports he is feeling well. continue current mgmt. 12/01: utox benzo POS; decrease klonopin to 0.75 mg/dose. find dose that will keep utox NEG. pt reports he feels well. continue current mgmt otherwise. Reason for continued inpatient stay Substantial Risk for: inability to function and rapid decompensation Time Spent With Patient Time: Total time managing care of this patient today ____ minutes.
[2024-12-01] MEDS: clonazePAM 0.5 MG TABLET 0.75 MG PO (21:06)
[2024-12-02 07:44] VITALS: BP 111/67; PULSE 75; RESP 16; TEMP 37.1; O2SAT 96
[2024-12-02] MEDS: methADONE HCl 20 MG/2 ML ORAL.CONC 140 MG PO (07:49)
[2024-12-02] MEDS: FLUoxetine HCl 20 MG CAPSULE 40 MG PO (08:11)
[2024-12-02] MEDS: Gabapentin 300 MG CAPSULE PO (08:11)
[2024-12-02] MEDS: clonazePAM 0.5 MG TABLET 0.75 MG PO (08:12)
[2024-12-02] MEDS: Nicotine Polacrilex 2 MG GUM 4 MG BUCCAL (08:32)
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
== END 2024-12-02 12:40 | DRG 754 ==
LOC: HO.ED 22:05 → HO.PADLT16 11-27 12:46
PROVIDERS: Physician Assistant Medical; Admitting Provider Psychiatry & Neurology Psychiatry; Emergency Provider Emergency Medicine Emergency Medical Services; Visit Provider Psychiatry & Neurology Psychiatry
DX: F32.A Depression, unspecified (principal); R45.851 Suicidal ideations; F11.20 Opioid dependence, uncomplicated; F17.210 Nicotine dependence, cigarettes, uncomplicated; Z59.02 Unsheltered homelessness; Z71.6 Tobacco abuse counseling; F19.20 Other psychoactive substance dependence, uncomplicated; F14.10 Cocaine abuse, uncomplicated; F43.12 Post-traumatic stress disorder, chronic; F41.9 Anxiety disorder, unspecified; Z79.899 Other long term (current) drug therapy
CPT/HCPCS: 36415; 80053; 80143; 80179; 80307; 81003; 83735; 85025; 93005; 99285; S9485

== ENCOUNTER 2024-11-27 12:41 | Outpatient (BNV) | payer MEDICAID, SELFPAY | END 2024-11-27 13:02 | PROVIDERS: Admitting Provider Psychiatry & Neurology Psychiatry; Emergency Provider Emergency Medicine Emergency Medical Services; Visit Provider Internal Medicine Cardiovascular Disease | DX: R94.31 Abnormal electrocardiogram [ECG] [EKG] (principal); R45.851 Suicidal ideations | CPT/HCPCS: 93010 ==

== ENCOUNTER → 2024-11-27 12:41 | Outpatient (BNV) | payer OTHER, SELFPAY | PROVIDERS: Admitting Provider Psychiatry & Neurology Psychiatry; Emergency Provider Emergency Medicine Emergency Medical Services; Visit Provider Psychiatry & Neurology Psychiatry | DX: F33.2 Major depressive disorder, recurrent severe without psychotic features (principal); F14.10 Cocaine abuse, uncomplicated; F11.20 Opioid dependence, uncomplicated | CPT/HCPCS: 99233 ==